=== PATIENT | male | born 1935 | race Caucasian/White ===

== ENCOUNTER 2017-10-13 06:18 | Outpatient (RCR) | payer MEDICARE | END 2017-10-14 | disposition home or self-care (01) | LOC: CR3 06:18 | DX: Z29.8 Encounter for other specified prophylactic measures (principal) ==

== ENCOUNTER 2017-11-12 06:12 | Outpatient (RCR) | payer MEDICARE | END 2017-11-13 | disposition home or self-care (01) | LOC: CR3 06:12 | PROVIDERS: ATTEND Internal Medicine | DX: Z29.8 Encounter for other specified prophylactic measures (principal) ==

== ENCOUNTER 2017-12-13 07:46 | Outpatient (RCR) | payer MEDICARE | END 2017-12-15 | disposition home or self-care (01) | LOC: CR3 07:46 | PROVIDERS: ATTEND Internal Medicine | DX: Z29.8 Encounter for other specified prophylactic measures (principal) ==

== ENCOUNTER 2018-01-12 10:07 | Outpatient (RCR) | payer MEDICARE | END 2018-01-13 | disposition home or self-care (01) | LOC: CR3 10:07 | PROVIDERS: ATTEND Internal Medicine | DX: Z29.8 Encounter for other specified prophylactic measures (principal) ==

== ENCOUNTER 2018-02-11 06:19 | Outpatient (RCR) | payer MEDICARE | END 2018-02-12 | disposition home or self-care (01) | LOC: CR3 06:19 | PROVIDERS: ATTEND Internal Medicine | DX: Z29.8 Encounter for other specified prophylactic measures (principal) ==

== ENCOUNTER 2018-03-16 06:21 | Outpatient (RCR) | payer MEDICARE | END 2018-03-17 | disposition home or self-care (01) | LOC: CR3 06:21 | PROVIDERS: ATTEND Internal Medicine | DX: Z29.8 Encounter for other specified prophylactic measures (principal) ==

== ENCOUNTER 2018-04-15 08:42 | Outpatient (RCR) | payer MEDICARE | END 2018-04-16 | disposition home or self-care (01) | LOC: CR3 08:42 | PROVIDERS: ATTEND Internal Medicine | DX: Z29.8 Encounter for other specified prophylactic measures (principal) ==

== ENCOUNTER → 2018-05-18 | Outpatient (RCR) | payer MEDICARE | END | disposition home or self-care (01) | LOC: CR3 04-18 06:00 | PROVIDERS: ATTEND Internal Medicine | DX: Z29.8 Encounter for other specified prophylactic measures (principal) ==

== ENCOUNTER → 2018-07-20 | Outpatient (RCR) | payer MEDICARE | END | disposition home or self-care (01) | LOC: CR3 06-20 06:00 | PROVIDERS: ATTEND Internal Medicine | DX: Z29.8 Encounter for other specified prophylactic measures (principal) ==

== ENCOUNTER 2018-08-19 07:15 | Outpatient (RCR) | payer MEDICARE | END 2018-08-21 | disposition home or self-care (01) | LOC: CR3 07:15 | PROVIDERS: ATTEND Internal Medicine | DX: Z29.8 Encounter for other specified prophylactic measures (principal) ==

== ENCOUNTER → 2018-09-21 | Outpatient (RCR) | payer MEDICARE | END | disposition home or self-care (01) | LOC: CR3 08-22 07:36 | PROVIDERS: ATTEND Internal Medicine | DX: Z29.8 Encounter for other specified prophylactic measures (principal) ==

== ENCOUNTER 2018-10-18 06:00 | Outpatient (RCR) | payer MEDICARE | END 2018-10-22 | disposition home or self-care (01) | LOC: CR3 06:00 | PROVIDERS: ATTEND Internal Medicine | DX: Z29.8 Encounter for other specified prophylactic measures (principal) ==

== ENCOUNTER 2018-12-07 08:08 | Outpatient (RCR) | payer MEDICARE, OTHER | END 2019-02-14 | disposition home or self-care (01) | LOC: CR 08:08 | PROVIDERS: ATTEND Internal Medicine Critical Care Medicine | DX: Z48.812 Encounter for surgical aftercare following surgery on the circulatory system (principal); Z95.2 Presence of prosthetic heart valve | CPT/HCPCS: 93798 ==

== ENCOUNTER → 2019-03-08 | Outpatient (RCR) | payer MEDICARE | END | disposition home or self-care (01) | LOC: CR3 02-06 06:00 | PROVIDERS: ATTEND Internal Medicine | DX: Z29.8 Encounter for other specified prophylactic measures (principal) ==

== ENCOUNTER 2019-03-11 13:02 | Emergency (ER) | payer MEDICARE, OTHER ==
[~2019-03-11] VITALS: Ht 167.7 cm; Wt 100.0 kg
--- NOTE | 2019-03-11 13:23 | ED Upper Extremity ---
General Chief Complaint: Upper Extremity Stated Complaint: L ELBOW PAIN / SWELLING Source: patient Exam Limitations: no limitations History of Present Illness Date Seen by Provider: Mar 11, 2019 Time Seen by Provider: 13:19 Initial Comments Patient fell on the tailgate of his truck yesterday now has swelling and pain to the posterior left elbow but full range of motion Onset: just prior to arrival Severity: moderate Pain/Injury Location: left elbow Method of Injury: fell Modifying Factors: Worse With Movement Allergies and Home Medications Allergies Coded Allergies: No Known Drug Allergies (Unverified , 03/11/19) Patient Home Medication List Home Medication List Reviewed: Yes Review of Systems Constitutional: see HPI EENTM: see HPI Respiratory: no symptoms reported Cardiovascular: no symptoms reported Genitourinary: no symptoms reported Musculoskeletal: see HPI Skin: no symptoms reported Psychiatric/Neurological: No Symptoms Reported Past Ceyopuz-Cqclqc-Efvnwt Hx Patient Social History Recent Foreign Travel: No Contact w/Someone Who Travel: No Physical Exam Vital Signs Vital Signs - First Documented 03/11/19 13:06 Temp 36.5 Pulse 83 Resp 18 B/P (MAP) 152/75 (100) Pulse Ox 99 O2 Delivery Room Air Capillary Refill : Height, Weight, BMI Height: '" Weight: lbs. oz. kg; BMI Method: General Appearance: WD/WN, no apparent distress HEENT: PERRL/EOMI Neck: non-tender, full range of motion Cardiovascular: regular rate, rhythm, systolic murmur Respiratory: no respiratory distress, no accessory muscle use Gastrointestinal: normal bowel sounds Shoulder: non-tender Elbow/Forearm: Left, swelling (swelling with a talked fluctuant bursa and the olecranon bursal region. Overlying skin is normal in appearance without erythema or evidence of infection) Neurologic/Psychiatric: alert, normal mood/affect, oriented x 3 Skin: normal color, warm/dry Procedures/Interventions Progress Numbed up the olecranon bursa with 1 mL of 2% lidocaine with epinephrine, an 18- gauge 1/2 inch needle was then inserted normal airway, only about 2 cc of blood was able to be aspirated, remainder was too thick to go down the lumen of the needle. Progress/Results/Core Measures Results/Orders Lab Results Laboratory Tests Test 03/11/19 13:24 Range/Units Prothrombin Time 33.4 H 12.2-14.7 SEC INR Comment 3.1 H 0.8-1.4 My Orders Orders - ANTIONETTE PHELPS APRN Protime With Inr (03/11/19 13:17) Elbow, Left, 3 Views (03/11/19 13:17) Lidocaine/Epi 2% 1:100,000 (Xylocaine/Ep (03/11/19 13:30) Vital Signs/I&O 03/11/19 13:06 Temp 36.5 Pulse 83 Resp 18 B/P (MAP) 152/75 (100) Pulse Ox 99 O2 Delivery Room Air Departure Communication (Admissions) He is on warfarin, we'll check a PT/INR before attempting bursal aspiration, due to the discomfort is causing him if the INR is not supratherapeutic will proceed with aspiration and pressure dressing. Impression Primary Impression: Traumatic bursitis Disposition: 01 HOME, SELF-CARE Condition: Stable Departure-Patient Inst. Decision time for Depature: 13:22 Referrals: NO,LOCAL PHYSICIAN (PCP/Family) Primary Care Physician Patient Instructions: Bursitis Add. Discharge Instructions: 1. Keep the compression dressing in place until this evening, you may take it off to shower then reapply the next 1-2 days. Return to ER for any concerns, follow-up with your doctor next week. All discharge instructions reviewed with patient and/or family. Voiced understanding. ANTIONETTE PHELPS APRN Mar 11, 2019 13:23
[2019-03-11] MEDS ORDERED: LIDOCAINE/EPI 2% 1:100,00 (XYLOCAINE) 20 ML VIAL INJ ONE (13:30)
--- NOTE | 2019-03-11 13:53 | Diagnostic Imaging Report ---
INDICATION: Elbow pain. Three views were obtained. FINDINGS: The alignment is normal. There are mild degenerative changes. There is no fracture or dislocation. IMPRESSION: Mild degenerative changes; however, no acute fracture or dislocation. Dictated by: Dictated on workstation # [id number]
[2019-03-11 13:56] LABS: INR 3.1 (0.8-1.4); PROTHROMBIN TIME PATIENT 33.4 SEC (12.2-14.7)
--- NOTE | 2019-03-11 14:20 | NUR ---
ANTOLIN HENAO AT BEDSIDE FOR BURSA ASPIRATION OF LT ELBOW. PT TOLERATED WELL
[2019-03-11 14:24] VITALS: BP 118/71
--- NOTE | 2019-03-11 14:24 | NUR ---
PT DISCHARGED TO HOME W/ JESÚS WRAP ET INSTR. PT VOICED UNDERSTANDING. NO QUESTIONS.
== END 2019-03-11 14:24 | disposition home or self-care (01) ==
LOC: EDUNIT# 13:02 → ER 13:03
DX: M70.32 Other bursitis of elbow, left elbow (principal); W19.XXXA Unspecified fall, initial encounter
CPT/HCPCS: 36415; 73080; 85610

== ENCOUNTER 2019-04-06 06:00 | Outpatient (RCR) | payer MEDICARE | END 2019-04-08 | disposition home or self-care (01) | LOC: CR3 06:00 | PROVIDERS: ATTEND Internal Medicine | DX: Z29.8 Encounter for other specified prophylactic measures (principal) ==

== ENCOUNTER 2019-05-04 06:00 | Outpatient (RCR) | payer MEDICARE | END 2019-05-10 | disposition home or self-care (01) | LOC: CR3 06:00 | PROVIDERS: ATTEND Internal Medicine | DX: Z29.8 Encounter for other specified prophylactic measures (principal) ==

== ENCOUNTER 2019-06-12 07:18 | Emergency (ER) | payer MEDICARE, OTHER ==
[~2019-06-12] VITALS: Ht 170.2 cm; Wt 105.0 kg
[2019-06-12] MEDS ORDERED: NS IV 500 ML 500 ML IV ONE (07:37)
--- NOTE | 2019-06-12 07:41 | ED Cardiac General ---
History of Present Illness General Chief Complaint: Cardiac/General Problems Stated Complaint: SOA Source: patient, caregiver Exam Limitations: no limitations History of Present Illness Date Seen by Provider: Jun 12, 2019 Time Seen by Provider: 07:13 Initial Comments Patient presents by wheelchair from cardiac rehabilitation with staff and chief complaint he was about 20 minutes into his workout he came pronouncedly short of breath and they put him on the monitor noting that his heart rate was 160, regular. They called their calendar control clerk blood bank office and were instructed to come to the ER for concern of A. fib with rapid ventricular response or other tachydysrhythmia. 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 He is known to Dr. Skinner and Dr. Burnette as well as Dr. Begum. He is not having any chest pain nausea sweats numbness or fever. No coughs or recent illness. He is having abdominal pain diarrhea or dysuria. He does have a history of coronary disease. He does not know any recent changes in medications. Allergies and Home Medications Allergies Coded Allergies: No Known Drug Allergies (Unverified , 03/11/19) Patient Home Medication List Home Medication List Reviewed: Yes Review of Systems Review of Systems Constitutional: No chills, No diaphoresis EENTM: No Blurred Vision, No Double Vision Respiratory: Denies Cough, Denies Shortness of Air Cardiovascular: See HPI; Denies Chest Pain, Denies Edema, Denies Irregular Heart Rate, Denies Lightheadedness; Palpitations; Denies Syncope Gastrointestinal: Denies Abdomen Distended, Denies Abdominal Pain Genitourinary: Denies Burning, Denies Discharge Musculoskeletal: No back pain, No joint pain Skin: No pruritus, No rash Psychiatric/Neurological: Denies Headache, Denies Numbness All Other Systems Reviewed Negative Unless Noted: Yes Past Dwkczun-Pbegqr-Dioklv Hx Patient Social History Alcohol Use: Denies Use Recreational Drug Use: No Smoking Status: Former Smoker Recent Foreign Travel: No Contact w/Someone Who Travel: No Recent Hopitalizations: No Immunizations Up To Date Tetanus Booster (TDap): Less than 5yrs Past Medical History Surgeries: Yes (MITRAL VALVE REPLACEMENT) CABG Respiratory: No Cardiac: Yes Neurological: No Genitourinary: No Gastrointestinal: No Musculoskeletal: No Endocrine: No HEENT: No Cancer: No Psychosocial: No Integumentary: No Blood Disorders: No Adverse Reaction/Blood Tranf: No Physical Exam Vital Signs Vital Signs - First Documented 06/12/19 07:20 Pulse 105 Resp 20 B/P (MAP) 146/97 (113) Pulse Ox 95 O2 Delivery Room Air Capillary Refill : Less Than 3 Seconds Height, Weight, BMI Height: '" Weight: lbs. oz. kg; 35.00 BMI Method: General Appearance: No Apparent Distress, WD/WN HEENT: PERRL/EOMI, TMs Normal, Normal ENT Inspection, Pharynx Normal; No Moist Mucous Membranes Neck: Full Range of Motion, Normal Inspection, Supple Respiratory: Chest Non Tender, Lungs Clear, Normal Breath Sounds, No Accessory Muscle Use, No Respiratory Distress Cardiovascular: Regular Rate, Rhythm, No Edema, No Gallop, No JVD, Normal Peripheral Pulses Gastrointestinal: Normal Bowel Sounds, Non Tender, Soft Extremity: Normal Capillary Refill, Normal Inspection, No Pedal Edema Neurologic/Psychiatric: Alert, Oriented x3 Skin: Normal Color, Warm/Dry Progress/Results/Core Measures Results/Orders Lab Results Laboratory Tests Test 06/12/19 07:22 06/12/19 07:23 Range/Units Prothrombin Time 32.3 H 12.2-14.7 SEC INR Comment 3.0 H 0.8-1.4 Activated Partial Thromboplast Time 51 H 24-35 SEC White Blood Count 9.2 4.3-11.0 10^3/uL Red Blood Count 4.99 4.35-5.85 10^6/uL Hemoglobin 15.1 13.3-17.7 G/DL Hematocrit 46 40-54 % Mean Corpuscular Volume 93 80-99 FL Mean Corpuscular Hemoglobin 30 25-34 PG Mean Corpuscular Hemoglobin Concent 33 32-36 G/DL Red Cell Distribution Width 13.8 10.0-14.5 % Platelet Count 209 130-400 10^3/uL Mean Platelet Volume 12.0 H 7.4-10.4 FL Neutrophils (%) (Auto) 63 42-75 % Lymphocytes (%) (Auto) 22 12-44 % Monocytes (%) (Auto) 11 0-12 % Eosinophils (%) (Auto) 3 0-10 % Basophils (%) (Auto) 1 0-10 % Neutrophils # (Auto) 5.8 1.8-7.8 X 10^3 Lymphocytes # (Auto) 2.0 1.0-4.0 X 10^3 Monocytes # (Auto) 1.0 0.0-1.0 X 10^3 Eosinophils # (Auto) 0.3 0.0-0.3 10^3/uL Basophils # (Auto) 0.1 0.0-0.1 10^3/uL Sodium Level 140 135-145 MMOL/L Potassium Level 4.5 3.6-5.0 MMOL/L Chloride Level 105 98-107 MMOL/L Carbon Dioxide Level 18 L 21-32 MMOL/L Anion Gap 17 H 5-14 MMOL/L Blood Urea Nitrogen 11 7-18 MG/DL Creatinine 1.09 0.60-1.30 MG/DL Estimat Glomerular Filtration Rate > 60 BUN/Creatinine Ratio 10 Glucose Level 149 H 70-105 MG/DL Calcium Level 9.5 8.5-10.1 MG/DL Corrected Calcium 9.2 8.5-10.1 MG/DL Total Bilirubin 0.6 0.1-1.0 MG/DL Aspartate Amino Transf (AST/SGOT) 22 5-34 U/L Alanine Aminotransferase (ALT/SGPT) 20 0-55 U/L Alkaline Phosphatase 72 40-136 U/L Troponin I < 0.028 <0.028 NG/ML B-Type Natriuretic Peptide 212.1 H <100.0 PG/ML Total Protein 7.6 6.4-8.2 GM/DL Albumin 4.4 3.2-4.5 GM/DL My Orders Orders - DANIS,MICHAEL J Chest 1 View, Ap/Pa Only (06/12/19 07:27) Ekg Tracing (06/12/19 07:27) Ed Iv/Invasive Line Start (06/12/19 07:27) Monitor-Rhythm Ecg Trace Only (06/12/19 07:27) Cbc With Automated Diff (06/12/19 07:27) Comprehensive Metabolic Panel (06/12/19 07:27) BNP (06/12/19 07:27) Ed Iv/Invasive Line Start (06/12/19 07:27) Ed Iv/Invasive Line Start (06/12/19 07:37) Ns Iv 500 Ml (Sodium Chloride 0.9%) (06/12/19 07:37) Protime With Inr (06/12/19 07:41) Partial Thromboplastin Time (06/12/19 07:41) Troponin I (06/12/19 07:23) Medications Given in ED Current Medications Medications Dose Ordered Sig/Le Route Start Time Stop Time Status Last Admin Dose Admin Sodium Chloride 500 ml @ 0 mls/hr Q0M ONCE IV 06/12/19 07:37 06/12/19 07:39 DC 06/12/19 07:44 500 MLS/HR Vital Signs/I&O 06/12/19 07:20 Pulse 105 Resp 20 B/P (MAP) 146/97 (113) Pulse Ox 95 O2 Delivery Room Air Progress Progress Note : Time: 07:44 Progress Note The strip from via the cardiac rehabilitation team demonstrates 150 heart rate regular sinus rhythm. We don't have an echocardiogram previously EKG on file. He denies ever having a monitor study looking for A. fib. Strip provided does not demonstrate atrial fibrillation. Suspect this could just be sinus tachycardia in response to his exercise. He does appear to be dry aspirin given 500 cc of fluid but his heart rate has steadily declined since arriving. His pulse was regular on arrival. He says he feels just fine now no longer short of breath nor demonstrating any objective criteria of dyspnea. Lungs sound clear. On exam he does appear to be dry he does not know what medication he takes nor do we have a list. We'll keep him on the monitor check some basic labs looking for anemia as, fluid overload etc. chest x-ray. He does not have any subjective findings of respiratory tract infection. Initial ECG Impression Date: Jun 12, 2019 Initial ECG Impression Time: 07:19 Initial ECG Rate: 94 Initial ECG Rhythm: Normal Sinus Initial ECG Intervals: Normal Initial ECG Impression: Normal Initial ECG Comparisson: No Previous ECG Available Comment Normal sinus rhythm without ST elevation or depression. Diagnostic Imaging Diagonstic Imaging: Xray Plain Films/CT/US/NM/MRI: chest (1v) Comments [facility] [place], [place] NAME: SHELIADELMY MED REC#: [id number] PT STATUS: REG ER : 1935 PHYSICIAN: MICHAEL MOSCOSO MD ADMIT DATE: 06/12/19/ER Draft Date of Exam:06/12/19 CHEST 1 VIEW, AP/PA ONLY INDICATION: Shortness of air, tachycardia. TECHNIQUE: Single view chest 7:59 AM. 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 Cardiac valve. Cardiac enlargement. Vasculature is borderline without evidence of overt failure. The lungs are clear with no consolidating infiltrate. There is no significant effusion or pneumothorax. IMPRESSION: 1. Post sternotomy changes. Borderline cardiac enlargement without evidence of overt failure. Dictated on workstation # [id number] Dict: 06/12/19 0810 Trans: 06/12/19 0829 [facility] [id number] Interpreted by: LETTY LUTHER DO Electronically signed by: Reviewed: Reviewed by Me Departure Impression Primary Impression: Exertional dyspnea Disposition: 01 HOME, SELF-CARE Condition: Improved Departure-Patient Inst. Decision time for Depature: 08:55 Referrals: NO,LOCAL PHYSICIAN (PCP/Family) Primary Care Physician Patient Instructions: Shortness of Breath (Dyspnea) (DC) Add. Discharge Instructions: Follow-up with your calendar control clerk blood bank sometime this week. Alternatively follow-up with her primary care doctor. Return to the ER to begin to have shortness of breath or chest pain again. Drink plenty of fluids. All discharge instructions reviewed with patient and/or family. Voiced u nderstanding. MICHAEL MOSCOSO Jun 12, 2019 07:41
[2019-06-12 07:43] LABS: BASOPHILS # (AUTO) 0.1 10^3/uL (0.0-0.1); BASOPHILS % (AUTO) 1 % (0-10); EOSINOPHILS # (AUTO) 0.3 10^3/uL (0.0-0.3); EOSINOPHILS % (AUTO) 3 % (0-10); HEMATOCRIT 46 % (40-54); HEMOGLOBIN 15.1 G/DL (13.3-17.7); LYMPHOCYTES % (AUTO) 22 % (12-44); MEAN CORPUSCULAR HEMOGLOBIN 30 PG (25-34); MEAN CORPUSCULAR HGB CONC 33 G/DL (32-36); MEAN CORPUSCULAR VOLUME 93 FL (80-99); MONOCYTES % (AUTO) 11 % (0-12); NEUTROPHILS # (AUTO) 5.8 X 10^3 (1.8-7.8); NEUTROPHILS % (AUTO) 63 % (42-75); PLATELET COUNT 209 10^3/uL (130-400); RED CELL DISTRIBUTION WIDTH 13.8 % (10.0-14.5); WHITE BLOOD COUNT 9.2 10^3/uL (4.3-11.0)
[2019-06-12 07:55] LABS: ALANINE AMINOTRANSFERASE 20 U/L (0-55); ALBUMIN 4.4 GM/DL (3.2-4.5); ALKALINE PHOSPHATASE 72 U/L (40-136); BILIRUBIN,TOTAL 0.6 MG/DL (0.1-1.0); BUN/CREATININE RATIO 10; CALCIUM 9.5 MG/DL (8.5-10.1); CARBON DIOXIDE 18 MMOL/L (21-32); CHLORIDE 105 MMOL/L (98-107); CREATININE SERUM 1.09 MG/DL (0.60-1.30); GFR ESTIMATED > 60; GLUCOSE 149 MG/DL (70-105); POTASSIUM 4.5 MMOL/L (3.6-5.0); SODIUM 140 MMOL/L (135-145); TOTAL PROTEIN 7.6 GM/DL (6.4-8.2)
[2019-06-12 08:01] LABS: PROTHROMBIN TIME PATIENT 32.3 SEC (12.2-14.7)
--- NOTE | 2019-06-12 08:31 | Diagnostic Imaging Report ---
INDICATION: Shortness of air, tachycardia. TECHNIQUE: Single view chest 7:59 AM. 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 Cardiac valve. Cardiac enlargement. Vasculature is borderline without evidence of overt failure. The lungs are clear with no consolidating infiltrate. There is no significant effusion or pneumothorax. IMPRESSION: 1. Post sternotomy changes. Borderline cardiac enlargement without evidence of overt failure. Dictated by: Dictated on workstation # [id number]
[2019-06-12 09:00] VITALS: BP 129/83
== END 2019-06-12 09:02 | disposition home or self-care (01) ==
LOC: EDUNIT# 07:18 → ER 07:19
DX: R06.09 Other forms of dyspnea (principal); Z95.4 Presence of other heart-valve replacement; Z79.01 Long term (current) use of anticoagulants; Z87.891 Personal history of nicotine dependence; Z95.1 Presence of aortocoronary bypass graft
CPT/HCPCS: 36415; 71045; 80053; 83880; 84484; 85025; 85610; 85730; 93005; 93041; 96360

== ENCOUNTER 2019-06-12 07:30 | Outpatient (RCR) | payer MEDICARE | END 2019-06-15 | disposition home or self-care (01) | LOC: CR3 07:30 | PROVIDERS: ATTEND Internal Medicine | DX: Z00.00 Encounter for general adult medical examination without abnormal findings (principal); Z29.8 Encounter for other specified prophylactic measures ==

== ENCOUNTER → 2019-06-19 | Outpatient (CLI) | payer MEDICARE, OTHER ==
--- NOTE | 2019-06-19 11:38 | Diagnostic Imaging Report ---
PROCEDURE: CT head and maxillofacial without contrast. TECHNIQUE: Multiple contiguous axial images were obtained through the head and facial bones without the use of intravenous contrast. Auto Exposure Controls were utilized during the CT exam to meet ALARA standards for radiation dose reduction. INDICATION: Fall last injuring to the nose and right side of the nose with laceration and bruising under the right eye. No prior studies are available for comparison. CT HEAD: Ventricles and sulci are prominent consistent with the patient's age. No sulcal effacement or midline shift is detected. No acute intra-axial or extra-axial hemorrhage is detected. Cisterns are patent. IMPRESSION: No acute intracranial process is detected. CT maxillofacial: The mandible appears to be intact. The zygomatic arches are intact. The maxillary sinus murcia as well as orbital murcia appear to be intact. No displaced nasal bone fracture is seen. Both globes appear to be intact. There is some mild soft tissue swelling over the nose. IMPRESSION: Nasal soft tissue swelling. No facial bone fracture is detected. Dictated by: Dictated on workstation # [id number]
== END ==
LOC: RAD 11:17
PROVIDERS: ATTEND Nurse Practitioner
DX: S01.21XA Laceration without foreign body of nose, initial encounter (principal); W19.XXXA Unspecified fall, initial encounter; Y92.009 Unspecified place in unspecified non-institutional (private) residence as the place of occurrence of the external cause
CPT/HCPCS: 70450; 70486

== ENCOUNTER 2019-07-13 06:00 | Outpatient (RCR) | payer MEDICARE | END 2019-07-16 | disposition home or self-care (01) | LOC: CR3 06:00 | PROVIDERS: ATTEND Internal Medicine | DX: Z00.00 Encounter for general adult medical examination without abnormal findings (principal); Z29.8 Encounter for other specified prophylactic measures ==

== ENCOUNTER → 2019-08-16 | Outpatient (RCR) | payer MEDICARE | END | disposition home or self-care (01) | LOC: CR3 07-17 07:00 | PROVIDERS: ATTEND Internal Medicine | DX: Z00.00 Encounter for general adult medical examination without abnormal findings (principal); Z29.8 Encounter for other specified prophylactic measures ==

== ENCOUNTER 2019-08-21 07:32 | Outpatient (RCR) | payer MEDICARE | END 2019-09-16 | disposition home or self-care (01) | LOC: CR3 07:32 | PROVIDERS: ATTEND Internal Medicine | DX: Z00.00 Encounter for general adult medical examination without abnormal findings (principal); Z29.8 Encounter for other specified prophylactic measures ==

== ENCOUNTER → 2019-09-15 | Outpatient (CLI) | payer MEDICARE, OTHER | LOC: CARD 08:42 | PROVIDERS: ATTEND Internal Medicine | DX: I50.9 Heart failure, unspecified (principal); I25.10 Atherosclerotic heart disease of native coronary artery without angina pectoris; I07.1 Rheumatic tricuspid insufficiency | CPT/HCPCS: 93306 ==

== ENCOUNTER → 2020-01-09 | Outpatient (CLI) | payer MEDICARE, OTHER ==
--- NOTE | 2020-01-09 13:53 | Diagnostic Imaging Report ---
INDICATION: Shortness of breath. TECHNIQUE: PA and lateral chest obtained at 01:19 p.m. and compared to 06/12/2019. FINDINGS: There is post-sternotomy change. There is a prosthetic aortic valve. There is no focal infiltrate or pneumothorax or pleural fluid. There is mild hyperinflation. IMPRESSION: Mild hyperinflation. Postop changes status post aortic valve replacement. No focal infiltrate or pneumothorax or pleural fluid. Dictated by: Dictated on workstation # [id number]
== END ==
LOC: RAD 13:01
PROVIDERS: ATTEND Internal Medicine
DX: R06.02 Shortness of breath (principal); R05 Cough; Z95.4 Presence of other heart-valve replacement
CPT/HCPCS: 71046

== ENCOUNTER 2020-05-09 18:10 | Emergency (ER) | payer MEDICARE, OTHER ==
[~2020-05-09] VITALS: Ht 172.7 cm; Wt 102.2 kg
[2020-05-09] MEDS ORDERED: NS IV 500 ML 500 ML IV SCH ×2 (18:45→19:15)
[2020-05-09 18:47] LABS: BASOPHILS % (AUTO) 0 % (0-10); EOSINOPHILS # (AUTO) 0.2 10^3/uL (0.0-0.3); EOSINOPHILS % (AUTO) 1 % (0-10); HEMATOCRIT 42 % (40-54); LYMPHOCYTES # (AUTO) 1.5 10^3/uL (1.0-4.0); LYMPHOCYTES % (AUTO) 10 % (12-44); MEAN CORPUSCULAR HEMOGLOBIN 31 pg (25-34); MEAN CORPUSCULAR HGB CONC 33 g/dL (32-36); MEAN CORPUSCULAR VOLUME 92 fL (80-99); MEAN PLATELET VOLUME 11.2 fL (9.0-12.2); MONOCYTES # (AUTO) 1.7 10^3/uL (0.0-1.0); MONOCYTES % (AUTO) 11 % (0-12); NEUTROPHILS # (AUTO) 11.5 10^3/uL (1.8-7.8); NEUTROPHILS % (AUTO) 77 % (42-75); PLATELET COUNT 278 10^3/uL (130-400)
--- NOTE | 2020-05-09 18:56 | NUR ---
REPORT TO ANNE
--- NOTE | 2020-05-09 18:56 | ED GU-Female ---
General Chief Complaint: - Urinary Stated Complaint: TREATED FOR UTI/LOWER BACK PAIN/CONSTIPATION Nursing Triage Note: AMB TO ED WAS BROUGHT BY GRANDDAUGHTER WHO REPORTS THAT HAS UTI HAS BEEN ON ABX FINISHED LAST WEEK. NO BM FOR 6-7 DAYS. HIS OLANZEPIVE WAS STOPPED 2 WEEKS AGO. HAS BEEN HAVING SUNDOWNERS. PATIENT ALERT ON ADMIT TO ROOM AND ANSWERS QUESTIONS. Nursing Sepsis Screen: No Definite Risk Source: patient Exam Limitations: no limitations History of Present Illness Date Seen by Provider: May 09, 2020 Time Seen by Provider: 18:45 Initial Comments To ER with reports of no bowel movement in 6 to 7 days. Dysuria. Recently finished antibiotics about a week ago for urinary tract infection. No fevers or chills. No abdominal pain. No chest pain. 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 Timing/Duration: week Severity/Quality: moderate Radiation: none Prior Genitourinary Problems: none Associated Symptoms: dysuria Allergies and Home Medications Allergies Coded Allergies: No Known Drug Allergies (Unverified , 03/11/19) Home Medications Cefdinir 300 Mg Capsule, 300 MG PO BID Prescribed by: ANTIONETTE PHELPS on 05/09/202037 Enoxaparin Sodium 100 Mg/1 Ml Syringe, 100 MG SQ BID Prescribed by: ANTIONETTE PHELPS on 05/09/202037 Polyethylene Glycol 3350 17 Gm Powd.pack, 17 GM PO BID Prescribed by: ANTIONETTE PHELPS on 05/09/202038 Temazepam 7.5 Mg Capsule, 7.5 MG PO HS Prescribed by: ANTIONETTE PHELPS on 05/09/202038 Patient Home Medication List Home Medication List Reviewed: Yes Review of Systems Review of Systems Constitutional: see HPI; No chills, No fever EENTM: see HPI Respiratory: no symptoms reported Cardiovascular: no symptoms reported Genitourinary: see HPI, dysuria Musculoskeletal: see HPI, back pain Skin: no symptoms reported Psychiatric/Neurological: No Symptoms Reported Endocrine: No Symptoms Reported Past Nwncegp-Aairjk-Aidakb Hx Patient Social History Alcohol Use: Denies Use Recreational Drug Use: No Smoking Status: Never a Smoker Recent Foreign Travel: No Contact w/Someone Who Travel: No Recent Infectious Disease Expo: No Recent Hopitalizations: No Immunizations Up To Date Tetanus Booster (TDap): Less than 5yrs Past Medical History Surgeries: Yes (MITRAL VALVE REPLACEMENT) CABG Respiratory: No Cardiac: Yes Neurological: No Genitourinary: No Gastrointestinal: No Musculoskeletal: No Endocrine: No HEENT: No Cancer: No Psychosocial: No Integumentary: No Blood Disorders: No Adverse Reaction/Blood Tranf: No Physical Exam Vital Signs Vital Signs - First Documented 05/09/20 18:31 Temp 36.6 Pulse 90 Resp 18 B/P (MAP) 149/88 (108) O2 Delivery Room Air Capillary Refill : Less Than 3 Seconds Height, Weight, BMI Height: '" Weight: lbs. oz. kg; 34.00 BMI Method: General Appearance: WD/WN, no apparent distress, other (Alert, very pleasant) Neck: non-tender, full range of motion Cardiovascular: regular rate, rhythm, no murmur Respiratory: no respiratory distress, no accessory muscle use Gastrointestinal: normal bowel sounds, non tender Back: normal inspection Extremities: normal range of motion, non-tender Neurologic/Psychiatric: alert, normal mood/affect, oriented x 3 Skin: normal color, warm/dry Progress/Results/Core Measures Suspected Sepsis Recent Fever Within 48 Hours: No Infection Criteria Present: None New/Unexplained Altered Menta: No Sepsis Screen: No Definite Risk SIRS Temperature: Pulse: 90 Respiratory Rate: 18 Laboratory Tests 05/09/20 18:40: White Blood Count 15.0H Blood Pressure 149 /88 Mean: 108 Laboratory Tests 05/09/20 18:40: Creatinine 1.64H, INR Comment 2.5H, Platelet Count 278, Total Bilirubin 1.9H Results/Orders Lab Results Laboratory Tests Test 05/09/20 18:40 05/09/20 18:58 Range/Units White Blood Count 15.0 H 4.3-11.0 10^3/uL Red Blood Count 4.59 4.30-5.52 10^6/uL Hemoglobin 14.0 13.3-17.7 g/dL Hematocrit 42 40-54 % Mean Corpuscular Volume 92 80-99 fL Mean Corpuscular Hemoglobin 31 25-34 pg Mean Corpuscular Hemoglobin Concent 33 32-36 g/dL Red Cell Distribution Width 13.0 10.0-14.5 % Platelet Count 278 130-400 10^3/uL Mean Platelet Volume 11.2 9.0-12.2 fL Immature Granulocyte % (Auto) 1 % Neutrophils (%) (Auto) 77 H 42-75 % Lymphocytes (%) (Auto) 10 L 12-44 % Monocytes (%) (Auto) 11 0-12 % Eosinophils (%) (Auto) 1 0-10 % Basophils (%) (Auto) 0 0-10 % Neutrophils # (Auto) 11.5 H 1.8-7.8 10^3/uL Lymphocytes # (Auto) 1.5 1.0-4.0 10^3/uL Monocytes # (Auto) 1.7 H 0.0-1.0 10^3/uL Eosinophils # (Auto) 0.2 0.0-0.3 10^3/uL Basophils # (Auto) 0.0 0.0-0.1 10^3/uL Immature Granulocyte # (Auto) 0.1 0.0-0.1 10^3/uL Neutrophils % (Manual) 77 % Lymphocytes % (Manual) 10 % Monocytes % (Manual) 10 % Eosinophils % (Manual) 3 % Blood Morphology Comment NORMAL Prothrombin Time 27.0 H 12.2-14.7 SEC INR Comment 2.5 H 0.8-1.4 Sodium Level 136 135-145 MMOL/L Potassium Level 3.8 3.6-5.0 MMOL/L Chloride Level 100 98-107 MMOL/L Carbon Dioxide Level 22 21-32 MMOL/L Anion Gap 14 5-14 MMOL/L Blood Urea Nitrogen 29 H 7-18 MG/DL Creatinine 1.64 H 0.60-1.30 MG/DL Estimat Glomerular Filtration Rate 40 BUN/Creatinine Ratio 18 Glucose Level 124 H 70-105 MG/DL Calcium Level 9.3 8.5-10.1 MG/DL Corrected Calcium 9.5 8.5-10.1 MG/DL Total Bilirubin 1.9 H 0.1-1.0 MG/DL Aspartate Amino Transf (AST/SGOT) 58 H 5-34 U/L Alanine Aminotransferase (ALT/SGPT) 72 H 0-55 U/L Alkaline Phosphatase 113 40-136 U/L B-Type Natriuretic Peptide 350.8 H <100.0 PG/ML Total Protein 7.5 6.4-8.2 GM/DL Albumin 3.7 3.2-4.5 GM/DL Procalcitonin 0.17 H <0.10 NG/ML Urine Color ORANGE Urine Clarity CLEAR Urine pH 5.5 5-9 Urine Specific [place] 1.025 H 1.016-1.022 Urine Protein NEGATIVE NEGATIVE Urine Glucose (UA) NEGATIVE NEGATIVE Urine Ketones NEGATIVE NEGATIVE Urine Nitrite NEGATIVE NEGATIVE Urine Bilirubin 1+ H NEGATIVE Urine Urobilinogen 1.0 < = 1.0 MG/DL Urine Leukocyte Esterase NEGATIVE NEGATIVE Urine RBC (Auto) 2+ H NEGATIVE Urine RBC 2-5 H /HPF Urine WBC 0-2 /HPF Urine Squamous Epithelial Cells 0-2 /HPF Urine Crystals NONE /LPF Urine Bacteria TRACE /HPF Urine Casts NONE /LPF Urine Mucus NEGATIVE /LPF Urine Culture Indicated NO My Orders Orders - ANTIONETTE PHELPS APRN Ua Culture If Indicated (05/09/20 18:24) Cbc With Automated Diff (05/09/20 18:24) Comprehensive Metabolic Panel (05/09/20 18:24) Ed Iv/Invasive Line Start (05/09/20 18:24) Ct Abd/Pelvis Wo(Kidney Stone) (05/09/20 18:24) Ekg Tracing (05/09/20 18:45) Chest 1 View, Ap/Pa Only (05/09/20 18:45) BNP (05/09/20 18:45) Ns Iv 500 Ml (Sodium Chloride 0.9%) (05/09/20 18:45) Manual Differential (05/09/20 18:40) Ns Iv 500 Ml (Sodium Chloride 0.9%) (05/09/20 19:15) Ns Iv 1000 Ml (Sodium Chloride 0.9%) (05/09/20 19:46) Procalcitonin (Pct) (05/09/20 20:03) Protime With Inr (05/09/20 20:14) Abdomen/Kub 1view (05/09/20 20:16) Ceftriaxone For Iv Use (Rocephin For I (05/09/20 20:30) Temazepam Capsule (Restoril Capsule) (05/09/20 20:30) Rx-Hydrocodone/Apap 5-325 Mg (Rx-Vicodin (05/09/20 20:30) Medications Given in ED Current Medications Medications Dose Ordered Sig/Le Route Start Time Stop Time Status Last Admin Dose Admin Ceftriaxone Sodium 1000 mg/ Sterile Water 10 ml @ 200 mls/hr ONCE ONCE IV 05/09/20 20:30 05/09/20 20:32 DC 05/09/20 20:24 200 MLS/HR Vital Signs/I&O 05/09/20 18:31 Temp 36.6 Pulse 90 Resp 18 B/P (MAP) 149/88 (108) O2 Delivery Room Air Capillary Refill : Less Than 3 Seconds Blood Pressure Mean: 108 Diagnostic Imaging Diagonstic Imaging: Xray Plain Films/CT/US/NM/MRI: chest Comments NAME: DELMY BASS MED REC#: [id number] PT STATUS: REG ER : 1935 PHYSICIAN: ANTIONETTE PHELPS APRN ADMIT DATE: 05/09/20/ER Signed Date of Exam:05/09/20 CHEST 1 VIEW, AP/PA ONLY EXAMINATION: Chest radiograph, portable AP view. DATE: 05/09/2020 7:26 PM. INDICATION: 85-year-old male, weakness. COMPARISON: January 09, 2020. FINDINGS: There are median sternotomy wires. There is valvular hardware. Heart size and mediastinal contours are grossly unchanged. There is no identified pneumothorax. There is interval nonspecific opacification in the left lung base. There are streaky opacities in the right lung base. IMPRESSION: 1. Interval opacification of the left lung base which may relate to infiltrate, atelectasis, pleural effusion and/or soft tissue overlap. 2. New streaky opacities in the right lung base consistent with atelectasis and/or infiltrate. Dictated by: Dictated on workstation # [id number] Dict: 05/09/201927 Trans: 05/09/201999 [facility] [id number] Interpreted by: STEFANIE ELENA MD Electronically signed by: STEFANIE ELENA MD 05/09/201999 NAME: DELMY BASS MED REC#: [id number] PT STATUS: REG ER : 1935 PHYSICIAN: ANTIONETTE PHELPS APRN ADMIT DATE: 05/09/20/ER Signed Date of Exam:05/09/20 CT ABD/PELVIS WO(KIDNEY STONE) PROCEDURE: CT urinary tract, rule out kidney stone. TECHNIQUE: Multiple contiguous axial images were obtained through the abdomen and pelvis without the use of intravenous contrast. Auto Exposure Controls were utilized during the CT exam to meet ALARA standards for radiation dose reduction. DATE: May 09, 2020. COMPARISON: None. INDICATION: 85-year-old male, no bowel movement for 6 to 7 days. Abdominal pain. FINDINGS: There are limitations for evaluation of the abdominal organs, neoplastic processes, abscess and limited evaluation of the vasculature relating to the lack of intravenous contrast. There are mild linear opacities in the right lower lobe and left lower lobe which likely relate to scarring and/or atelectasis. There is a benign calcified 3 mm granuloma in the lingula on axial image 7. There is valvular hardware. The heart is not enlarged. There is no pericardial effusion. There are atherosclerotic calcifications. The liver is unremarkable in size and contour. The gallbladder is unremarkable. There is no biliary ductal dilation. The main pancreatic duct is not abnormally dilated. Limited noncontrast evaluation of the pancreatic parenchyma is unremarkable. The spleen is not enlarged. There are splenic calcifications compatible with sequela of prior granulomatous disease. There is a stone in the left proximal ureter on axial image 70 which measures 8 mm in size. There is mild left hydronephrosis. There is inflammatory stranding adjacent to the left renal pelvis. There is a nonobstructing 5 mm left renal stone on axial image 46. There is a nonobstructing right renal stone on axial image 52 which measures 11 mm in size. The right urinary collecting system is not distended. There is no identified right ureteral stone. There is also inflammatory stranding adjacent to the more distal aspect of the left ureter. The urinary bladder is grossly unremarkable in appearance. The intestinal tract is not distended. The appendix is unremarkable. There is no free intraperitoneal air. There is no drainable fluid collection. There is no free pelvic fluid. There is an inferior vena cava filter. There is no identified abnormally enlarged lymph node in the abdomen or pelvis which meets CT size criteria for adenopathy. There are collateral veins present within the anterior abdominal wall subcutaneous tissues. There are degenerative changes of the spine. There is no identified acute bony abnormality. IMPRESSION: CT abdomen and pelvis: 1. 8 mm stone in the left proximal ureter with associated mild left hydronephrosis. There is inflammatory stranding adjacent to the left renal pelvis as well as the left ureter distal to the location of the stone. Evaluation for superimposed urinary tract infection is nondiagnostic on noncontrast CT. Recommend correlation clinically and with urinalysis. 2. Additional right and left renal stones. No right hydronephrosis. Dictated by: Dictated on workstation # [id number] Dict: 05/09/201945 Trans: 05/09/201999 [facility] [id number] Interpreted by: STEFANIE ELENA MD Electronically signed by: STEFANIE ELENA MD 05/09/201999 Departure Communication (Admissions) 2030-spoke with Dr. Boyd, will give a dose of Rocephin here then home on antibiotics. He will see the patient Wednesday at 1 PM and plan for lithotripsy on Wednesday.. He will stop the warfarin on Wednesday. Patient takes warfarin for history of clotting disorder according to family and a mitral valve replacement. Because of this increased stroke risk we should bridge her with Lovenox. I spoke with the daughter she is familiar and has given injections before. For the insomnia I will give him a short prescription of Restoril. For the cons tipation I will give him MiraLAX. For the ureteral stone I will give him Omnicef and hydrocodone. 2099-spoke with Dr. Gupta about whether or not to bridge with Lovenox. He typically stop the anticoagulant in the form of warfarin 3 days prior to a procedure that way they do not need Lovenox. Impression Primary Impression: Left ureteral stone Additional Impressions: Dehydration Constipation Insomnia Disposition: HOME, SELF-CARE Condition: Stable Departure-Patient Inst. Decision time for Depature: 20:32 Referrals: SERA BOYD MD, JOHN D MD (PCP/Family) Primary Care Physician Patient Instructions: Kidney Stones (DC) Add. Discharge Instructions: 1. Take the antibiotics to prevent infection around the stone. Use the hydrocodone/acetaminophen as needed for pain control. This can be sedating so do not take it with the sleeping medicine at bedtime. It can also be constipating so it is important to use the MiraLAX for help with the constipation. Take the Restoril for troubles sleeping at bedtime. Call Dr. Amos Wednesday to see if he would like to continue this prescription or change to something different. Stop the warfarin on Wednesday. See Dr. Boyd Wednesday at 1 PM. The plan is to break up the stone with sound waves on Wednesday. All discharge instructions reviewed with patient and/or family. Voiced understanding. Scripts Enoxaparin Sodium (Lovenox) 100 Mg/1 Ml Syringe 100 MG SQ BID, #7 SYRINGE Discontinue. Prov: ANTIONETTE PHELPS APRN 05/09/20 Polyethylene Glycol 3350 (Miralax) 17 Gm Powd.pack 17 GM PO BID, #14 EACH Prov: ANTIONETTE PHELPS APRN 05/09/20 Temazepam (Restoril) 7.5 Mg Capsule 7.5 MG PO HS, #10 CAP Prov: ANTIONETTE PHELPS APRN 05/09/20 Cefdinir (Cefdinir) 300 Mg Capsule 300 MG PO BID, #14 CAP Prov: ANTIONETTE PHELPS APRN 05/09/20 Copy Copies To 1: SERA BOYD MD; MEGHANA AMOS MD, PETER J APRN May 09, 2020 18:56
[2020-05-09 19:05] LABS: BILIRUBIN,URINE 1+ (NEGATIVE); CLARITY,URINE CLEAR; COLOR,URINE ORANGE; GLUCOSE, URINE (UA) NEGATIVE (NEGATIVE); KETONES,URINE NEGATIVE (NEGATIVE); LEUKOCYTE ESTERASE ,URINE NEGATIVE (NEGATIVE); NITRITE,URINE NEGATIVE (NEGATIVE); PH,URINE 5.5 (5-9); PROTEIN,URINE NEGATIVE (NEGATIVE)
[2020-05-09 19:06] LABS: ALBUMIN 3.7 GM/DL (3.2-4.5); BILIRUBIN,TOTAL 1.9 MG/DL (0.1-1.0); CALCIUM 9.3 MG/DL (8.5-10.1); CREATININE SERUM 1.64 MG/DL (0.60-1.30); POTASSIUM 3.8 MMOL/L (3.6-5.0); TOTAL PROTEIN 7.5 GM/DL (6.4-8.2)
[2020-05-09 19:27] LABS: EOSINOPHILS % (MANUAL) 3 %; LYMPHOCYTES % (MANUAL) 10 %; MONOCYTES % (MANUAL) 10 %; NEUTROPHILS % (MANUAL) 77 %; RBC MORPH NORMAL
--- NOTE | 2020-05-09 19:31 | Diagnostic Imaging Report ---
EXAMINATION: Chest radiograph, portable AP view. DATE: 05/09/2020 7:26 PM. INDICATION: 85-year-old male, weakness. COMPARISON: January 09, 2020. FINDINGS: There are median sternotomy wires. There is valvular hardware. Heart size and mediastinal contours are grossly unchanged. There is no identified pneumothorax. There is interval nonspecific opacification in the left lung base. There are streaky opacities in the right lung base. IMPRESSION: 1. Interval opacification of the left lung base which may relate to infiltrate, atelectasis, pleural effusion and/or soft tissue overlap. 2. New streaky opacities in the right lung base consistent with atelectasis and/or infiltrate. Dictated by: Dictated on workstation # [id number]
[2020-05-09 19:41] LABS: BACTERIA,URINE TRACE /HPF; SQUAMOUS EPITHELIAL CELL,UR 0-2 /HPF; WBC,URINE 0-2 /HPF
[2020-05-09] MEDS ORDERED: NS IV 1000 ML 1,000 ML ONE (19:46)
--- NOTE | 2020-05-09 19:57 | Diagnostic Imaging Report ---
PROCEDURE: CT urinary tract, rule out kidney stone. TECHNIQUE: Multiple contiguous axial images were obtained through the abdomen and pelvis without the use of intravenous contrast. Auto Exposure Controls were utilized during the CT exam to meet ALARA standards for radiation dose reduction. DATE: May 09, 2020. COMPARISON: None. INDICATION: 85-year-old male, no bowel movement for 6 to 7 days. Abdominal pain. FINDINGS: There are limitations for evaluation of the abdominal organs, neoplastic processes, abscess and limited evaluation of the vasculature relating to the lack of intravenous contrast. There are mild linear opacities in the right lower lobe and left lower lobe which likely relate to scarring and/or atelectasis. There is a benign calcified 3 mm granuloma in the lingula on axial image 7. There is valvular hardware. The heart is not enlarged. There is no pericardial effusion. There are atherosclerotic calcifications. The liver is unremarkable in size and contour. The gallbladder is unremarkable. There is no biliary ductal dilation. The main pancreatic duct is not abnormally dilated. Limited noncontrast evaluation of the pancreatic parenchyma is unremarkable. The spleen is not enlarged. There are splenic calcifications compatible with sequela of prior granulomatous disease. There is a stone in the left proximal ureter on axial image 70 which measures 8 mm in size. There is mild left hydronephrosis. There is inflammatory stranding adjacent to the left renal pelvis. There is a nonobstructing 5 mm left renal stone on axial image 46. There is a nonobstructing right renal stone on axial image 52 which measures 11 mm in size. The right urinary collecting system is not distended. There is no identified right ureteral stone. There is also inflammatory stranding adjacent to the more distal aspect of the left ureter. The urinary bladder is grossly unremarkable in appearance. The intestinal tract is not distended. The appendix is unremarkable. There is no free intraperitoneal air. There is no drainable fluid collection. There is no free pelvic fluid. There is an inferior vena cava filter. There is no identified abnormally enlarged lymph node in the abdomen or pelvis which meets CT size criteria for adenopathy. There are collateral veins present within the anterior abdominal wall subcutaneous tissues. There are degenerative changes of the spine. There is no identified acute bony abnormality. IMPRESSION: CT abdomen and pelvis: 1. 8 mm stone in the left proximal ureter with associated mild left hydronephrosis. There is inflammatory stranding adjacent to the left renal pelvis as well as the left ureter distal to the location of the stone. Evaluation for superimposed urinary tract infection is nondiagnostic on noncontrast CT. Recommend correlation clinically and with urinalysis. 2. Additional right and left renal stones. No right hydronephrosis. Dictated by: Dictated on workstation # [id number]
[2020-05-09] MEDS ORDERED: RX-HYDROCODONE/APAP 5/325 MG #4 TAB PK PO PRN (20:30)
[2020-05-09] MEDS ORDERED: TEMAZEPAM 7.5 MG CAP (RESTORIL) PO ONE (20:30)
[2020-05-09] MEDS ORDERED: cefTRIAXone FOR IV USE 1,000 MG in WATER (STERILE) FOR INJECTION 10 ML IV ONE (20:30)
[2020-05-09 20:31] LABS: INR 2.5 (0.8-1.4)
[2020-05-09] MEDS ORDERED: CEFD300C3 PO (20:38)
[2020-05-09] MEDS ORDERED: ENOX100D9 SQ ×2 (20:38→21:03)
[2020-05-09] MEDS ORDERED: POLY17PO6 PO (20:39)
[2020-05-09] MEDS ORDERED: TEMA7.5C2 PO (20:39)
--- NOTE | 2020-05-09 21:06 | Diagnostic Imaging Report ---
EXAMINATION: Abdominal radiographs, single portable view. DATE: May 09, 2020. CLINICAL INDICATION: 85-year-old male, left ureteral stone. COMPARISON: CT abdomen pelvis May 09, 2020. COMMENTS: There is a calcification of the left of midline at the level of the L4-L5 disc space, measuring 11 mm in size, which correlates with the left ureteral stone seen on same day CT abdomen and pelvis. There is an inferior vena cava filter. There are pelvic calcifications likely relating to phleboliths. The upper abdomen is not in the included field of view. There are no abnormally distended gas-filled segments of bowel. IMPRESSION: 1. The previously noted 12 mm stone in the left ureter is visible, radiographically. 2. Unremarkable bowel gas pattern. Dictated by: Dictated on workstation # [id number]
[2020-05-09 21:30] VITALS: BP 152/76
[2020-05-10] MEDS ORDERED: ACHD5005 PO (13:46)
== END 2020-05-09 21:30 | disposition home or self-care (01) ==
LOC: EDUNIT# 18:10 → ER 18:11
DX: N13.2 Hydronephrosis with renal and ureteral calculous obstruction (principal); E86.0 Dehydration; K59.00 Constipation, unspecified; G47.00 Insomnia, unspecified; Z95.1 Presence of aortocoronary bypass graft
CPT/HCPCS: 36415; 71045; 74018; 74176; 80053; 81000; 83880; 84145; 85007; 85027; 85610

== ENCOUNTER 2020-05-14 05:29 | Outpatient (RCR) | payer MEDICARE, OTHER ==
[~2020-05-14] VITALS: Ht 175 cm; Wt 104.5 kg
[~2020-05-14 05:29] MED LIST: ACHD5005 PO; CEFD300C3 PO; ENOX100D9 SQ; POLY17PO6 PO; TEMA7.5C2 PO
[2020-05-15] MEDS ORDERED: FINA5TAB6 PO (07:59)
[2020-05-15] MEDS ORDERED: BUSP5TAB59 PO (07:59)
[2020-05-15] MEDS ORDERED: WARF-48 PO (07:59)
[2020-05-15] MEDS ORDERED: ATOR10TA66 PO (07:59)
[2020-05-15] MEDS ORDERED: BUPR150T14 PO (07:59)
[2020-05-15] MEDS ORDERED: CARV3.122 PO (07:59)
[2020-05-15] MEDS ORDERED: WRF10T PO (07:59)
[2020-05-15] MEDS ORDERED: POTA10TA36 PO (07:59)
[2020-05-15] MEDS ORDERED: FURO20TA4 PO (07:59)
== END 2020-05-14 15:27 | disposition home or self-care (01) ==
LOC: PREOP 05:29
PROVIDERS: ATTEND Urology
DX: Z01.812 Encounter for preprocedural laboratory examination (principal); N20.1 Calculus of ureter; Z20.828 Contact with and (suspected) exposure to other viral communicable diseases
CPT/HCPCS: 87635

== ENCOUNTER → 2020-05-15 | Day surgery (SDC) | payer MEDICARE, OTHER ==
[~2020-05-15] VITALS: Ht 175 cm; Wt 104.5 kg
[~2020-05-15] MED LIST changes: +ATOR10TA66 PO; +BUPR150T14 PO; +BUSP5TAB59 PO; +CARV3.122 PO; +CATHETER FLUSH 10 ML SYR IV PRN; +CIPR-225 PO; +DILT60TA30 PO; +FINA5TAB6 PO; +FURO20TA4 PO; +LACTATED RINGERS 1,000 ML IV PRN; +NITR-65 PO; +PHEN-640 PO; +POTA10TA36 PO; +TMSL.4C PO; +TRM50T PO; +WARF-48 PO; +WRF10T PO; +cefTRIAXone FOR IV USE 1,000 MG in WATER (STERILE) FOR INJECTION 10 ML IV ONE
[2020-05-15 06:35] VITALS: BP 129/100
--- NOTE | 2020-05-15 06:50 | NUR ---
3 LEAD SHOWING SVT. Erika FRANKEL CRNA, WANTING 12 LEAD EKG.
[2020-05-15 07:00] LABS: INR 1.7 (0.8-1.4); PROTHROMBIN TIME PATIENT 20.2 SEC (12.2-14.7)
--- NOTE | 2020-05-15 07:13 | NUR ---
12 LEAD EKG DONE. JUNCTIONAL TACH. TOLD TO CONTACT THE PATIENT'S ESTATE MANAGER, DR. HALL, AND INFORM HIM OF THE FINDINGS.
--- NOTE | 2020-05-15 07:18 | Progress Note-Pre Operative ---
Pre-Operative Progress Note H&P Reviewed The H&P was reviewed, patient examined and no changes noted. Date Seen by Provider: May 15, 2020 Time Seen by Provider: 07:18 Date H&P Reviewed: May 15, 2020 Time H&P Reviewed: 07:18 Pre-Operative Diagnosis: LT URETERAL STONE SERA BOYD MD May 15, 2020 07:18
--- NOTE | 2020-05-15 07:26 | NUR ---
JANICE LEFT ON DR. HALL'S CELL PHONE.
--- NOTE | 2020-05-15 07:30 | NUR ---
CALLED THE REGIONAL MARKETING DIRECTOR TO LEAVE A MESSAGE TO HAVE DR. HALL CALLED ME ABOUT THE PATIENT.
--- NOTE | 2020-05-15 07:45 | NUR ---
TALKED WITH DR. HALL. ORDER TO ADMIT THE PATIENT TO ICU AND HAVE THE HOSPITALIST SEE THE PATIENT.
--- NOTE | 2020-05-15 07:50 | NUR ---
CALLED THE NURSING FIRST OFFICER AND FLIGHT INSTRUCTOR.
--- NOTE | 2020-05-15 08:45 | NUR ---
REPORT CALLED TO ZEFERINO.
--- NOTE | 2020-05-15 08:48 | Diagnostic Imaging Report ---
EXAM: ABDOMEN/KUB 1VIEW. INDICATION: Left ureteral stone. COMPARISON: CT abdomen/pelvis 05/09/2020. FINDINGS: The previously seen 1.1 cm left ureteral stone has migrated and is now along the inferior margin of the left sacroiliac joint. Phleboliths in the pelvis. Nonspecific bowel gas pattern. IVC filter. Moderate spondylotic and scoliotic changes in the lumbar spine. IMPRESSION: The left ureteral stone has migrated since the prior exams and is now along the inferior margin of the left sacroiliac joint. Dictated by: Dictated on workstation # [id number]
--- NOTE | 2020-05-15 09:05 | NUR ---
PATIENT TO ICU 10 PER CART.
== END ==
LOC: SDC 06:07
PROVIDERS: ATTEND Urology
DX: N20.1 Calculus of ureter (principal); I10 Essential (primary) hypertension; K21.9 Gastro-esophageal reflux disease without esophagitis; I25.10 Atherosclerotic heart disease of native coronary artery without angina pectoris; F32.9 Major depressive disorder, single episode, unspecified; Z79.899 Other long term (current) drug therapy; Z88.2 Allergy status to sulfonamides; Z86.73 Personal history of transient ischemic attack (TIA), and cerebral infarction without residual deficits
CPT/HCPCS: 36415; 74018; 85610; 87081; 93005

== ENCOUNTER 2020-05-17 06:12 | Day surgery (SDC) | payer MEDICARE, OTHER ==
[2020-05-17] VITALS (15 sets, daily range): BP systolic 120–161; BP diastolic 72–97
[~2020-05-17 06:12] MED LIST changes: -CATHETER FLUSH 10 ML SYR IV PRN; -CIPR-225 PO; -DILT60TA30 PO; -LACTATED RINGERS 1,000 ML IV PRN; -NITR-65 PO; -PHEN-640 PO; -TMSL.4C PO; -TRM50T PO; -cefTRIAXone FOR IV USE 1,000 MG in WATER (STERILE) FOR INJECTION 10 ML IV ONE
[2020-05-17] MEDS ORDERED: cefTRIAXone FOR IV USE 1,000 MG in WATER (STERILE) FOR INJECTION 10 ML IV ONE (06:30)
[2020-05-17] MEDS ORDERED: ONDANSETRON 4 MG/2 ML (SDV) Z0FRAN ONE (06:42)
[2020-05-17] MEDS ORDERED: LIDOCAINE PF 2% 5 ML (XYLOCAINE) VIAL ONE (06:42)
[2020-05-17] MEDS ORDERED: MIDAZOLAM 2 MG/2 ML (VERSED) VIAL ONE (06:42)
[2020-05-17] MEDS ORDERED: SEVOFLURANE (ULTANE) 15 ML INHAL SOLN ONE ×3 (06:42→08:01)
[2020-05-17] MEDS ORDERED: proPOfol 200 MG/20 ML (DIPRIVAN) VIAL IV ONE (06:42)
[2020-05-17] MEDS ORDERED: fentaNYL INJECTION 100 MCG/2 ML AMP ONE (06:43)
--- NOTE | 2020-05-17 07:11 | Progress Note-Pre Operative ---
Pre-Operative Progress Note H&P Reviewed The H&P was reviewed, patient examined and no changes noted. Date Seen by Provider: May 17, 2020 Time Seen by Provider: 07:10 Date H&P Reviewed: May 17, 2020 Time H&P Reviewed: 07:10 Pre-Operative Diagnosis: LT DISTAL URETERAL STONE SERA BOYD MD May 17, 2020 07:11
--- NOTE | 2020-05-17 07:13 | Progress Note-Post Operative ---
Post-Operative Progess Note Surgeon (s)/Glaze Handler (s) Surgeon SERA BOYD MD Glaze Handler: NONE Pre-Operative Diagnosis LT DISTAL URETERAL STONE Post-Operative Diagnosis SAME Procedure & Operative Findings Date of Procedure 05/17/20 Procedure Performed/Findings CYSTOSCOPY Anesthesia Type GENERAL Estimated Blood Loss Estimated blood loss (mL): NONE Specimens/Packing Specimens Removed NONE Packing: NONE SERA BOYD MD May 17, 2020 07:13
--- NOTE | 2020-05-17 07:14 | Progress Note-Post Operative ---
Post-Operative Progess Note Surgeon (s)/Hand Laminator (s) Surgeon SERA BOYD MD Hand Laminator: NONE Pre-Operative Diagnosis LT DISTAL URETERAL STONE Post-Operative Diagnosis SAME Procedure & Operative Findings Date of Procedure 05/17/20 Procedure Performed/Findings CYSTOSCOPY, LT URETERAL STONE MANIPULATION AND STENT INSERTION Anesthesia Type GENERAL Estimated Blood Loss Estimated blood loss (mL): NONE Specimens/Packing Specimens Removed NONE Packing: NONE SERA BOYD MD May 17, 2020 07:14
[2020-05-17] MEDS ORDERED: LACTATED RINGERS 1,000 ML IV PRN (07:15)
--- NOTE | 2020-05-17 07:29 | Diagnostic Imaging Report ---
EXAMINATION: Abdominal radiographs, single supine view, 2 images. DATE: May 17, 2020. CLINICAL INDICATION: 85-year-old male, exam prior to shock wave lithotripsy. COMPARISON: May 15, 2020. CT abdomen pelvis May 09, 2020. COMMENTS: There is an inferior vena cava filter noted. There are gas-filled segments of small and large bowel which are not grossly distended. There is a calcification to the left of midline measuring approximately 9 mm in size which may relate to a distal left ureteral stone. There are pelvic calcifications additionally present which most likely relate to phleboliths. IMPRESSION: 1. 9 mm calcification to the left of midline at the level of the pelvis most likely relating to a stone in the left distal ureter. This is more inferiorly positioned than on prior CT abdomen and pelvis exam of May 09, 2020. Dictated by: Dictated on workstation # [id number]
[2020-05-17 07:44] LABS: INR 1.2 (0.8-1.4); PROTHROMBIN TIME PATIENT 15.8 SEC (12.2-14.7)
[2020-05-17] MEDS ORDERED: ROCURONIUM 10 MG/ML 5 ML SYRINGE IV ONE (07:44)
--- NOTE | 2020-05-17 08:08 | Discharge Inst-Urology ---
Discharge Inst-Urology Reconcile Patient Problems Problems Reviewed?: Yes Final Diagnosis LT DISTAL URETERAL STONE Patient Instructions/Follow Up Plan/Assessment/Instructions Please make appointment to been seen in office Sunday 05/27, KUB prior to it. In 48 hours, if no bleeding, may resume Coumadin/Warfarin, then HOLD IT AGAIN FROM THURSDAY 05/24 Increase oral fluids for 48 hours and then as needed. Diet and Activity as tolerated. If questions or concerns contact your physician Or seek help at emergency department. SERA BOYD MD May 17, 2020 08:08
[2020-05-17] MEDS ORDERED: morphine INJ 10 MG/ML 1ML (SYR OR VIAL) IVP ONE (08:15)
[2020-05-17] MEDS ORDERED: fentaNYL INJECTION 100 MCG/2 ML AMP IVP ONE (08:15)
[2020-05-17] MEDS ORDERED: ONDANSETRON 4 MG/2 ML (SDV) Z0FRAN IVP PRN (08:15)
[2020-05-17] MEDS ORDERED: PHEN-640 PO (08:34)
[2020-05-17] MEDS ORDERED: CIPR-225 PO (08:34)
[2020-05-17] MEDS ORDERED: TRM50T PO (08:34)
[2020-05-17] MEDS ORDERED: DILT60TA30 PO (10:32)
--- NOTE | 2020-05-17 11:43 | NUR ---
PAT[place] [facility] [place]OX. 0905 WITH REPORTED HIGH HEART RATE AND ORDER FOR EKG. EKG OBTAINED. REPORTED FINDINGS TO BROCK ALBERTS. RECEIVED ORDER TO CONSULT CARDIOLOGY. THIS RN ATTEMPTED TO CALL PATIENT'S PRIMARY LEAD PAINTER, NO ANSWER. THIS RN CALLED DR. HALL'S OFFICE, INSTRUCTED TO CALL DR. COSBY DUE TO HIM BEING POTASH FLAKER. THIS RN PAGED DR. COSBY AT 0925, RECEIVED NO CALL BACK. AT 0940 REPORTED TO LAYNE GASPARBUZZLE BUFFER. AT APPROX. 0955 LAYNE GASPARBUZZLE BUFFER CALLED ENOCH BRUNO AT DR. AMOS'S (THE PATIENT'S PCP) TO REPORT EKG RESULTS. RECEIVED ORDER TO GIVE PATIENT CARDIZEM 60MG PO X1 AND CALL IN MEDICATION TO PHARMACY. PATIENT WILL HAVE A FOLLOW UP APPOINTMENT WITH DR. AMOS'S OFFICE ON Wednesday05/20/20 AT 1300. THIS RN AT APPROX 1030 ASSESSES PATIENT PRIOR TO ADMINISTERING CARDIZEM, PATIENT CONVERTED BACK TO SINUS RHYTHM WITH HEART RATE OF 66. THIS RN CALLED ENOCH BRUNO FOR UPDATE AND RECEIVED ORDER TO HOLD CARDIZEM, FAX EKG RESULTS, KEEP FOLLOW UP APPOINTMENT, AND SCHEDULE CARDIOLOGY FOLLOW UP APPT. ENOCH BRUNO REPORTS TALKING TO ENOCH TOMAS. PATIENT IS TO SEE DR. HALL ON Wednesday05/21/20 AT 0900. AT 1105 VITAL SIGNS REMAINED STABLE, CALLED XRAY TO OBTAIN POST OP KUB. AT 1135 DISCUSSED WITH DAUGHTER ERASTO PLAN OF CARE, VITALS STABLE. [place] [facility] [place] 1143.
--- NOTE | 2020-05-17 11:47 | Diagnostic Imaging Report ---
INDICATION: POST ESWL. TECHNIQUE: Single supine view of the abdomen 11:21 AM CORRELATION STUDY: 05/17/2020 FINDINGS: Since prior study, a left ureteral stent has been placed. Proximal aspect superimposed over the expected location mid left kidney distal portion just to the right of midline into the pelvis. Approximately 9 mm calcification adjacent to the distal left stent is unchanged. Additional likely phlebolith calcifications in the pelvis are present as well. There is a approximately 1 cm calcification in the right upper quadrant. Inferior vena cava filter present. Bowel gas pattern appears to be nonobstructed. IMPRESSION: 1. Left ureteral stent has been placed. The previously identified approximately 9 mm stone is unchanged in position, just adjacent to the distal stent. Dictated by: Dictated on workstation # [id number]
--- NOTE | 2020-05-17 13:32 | OPERATIVE REPORT ---
DATE OF SERVICE: 05/17/2020 PREOPERATIVE DIAGNOSIS: Left distal ureteral stone. POSTOPERATIVE DIAGNOSIS: Left distal ureteral stone. OPERATION PERFORMED: Cystoscopy, left ureteral stone manipulation and insertion of left double stent. SURGEON: Jacky Boyd MD. ANESTHESIA: General. COMPLICATIONS: None. DESCRIPTION OF PROCEDURE: Under satisfactory general anesthesia, the patient in lithotomy position, genitalia were prepped and draped in the usual sterile fashion. Cystoscope was introduced under vision. The anterior urethra was normal. The prostate showed enlargement with a median bar. There is a coarse trabeculation of the bladder and upward and lateral might displacement of the ureters. The efflux on the right side was normal, the left side was absent. Using the foroblique lens, I was able to pass a spiral tip 6-Israeli ureteral catheter passed a stone, was a lot of purulent urine coming out from it. I elected not to perform an ureteroscopy with lithotripsy because of the pus as well as the direction of the ureter, which may not be able to accommodate the semi-rigid ureteroscope. I did not want to mess up things, so I went ahead and passed a 6-Israeli 26 cm double-J stent all the way up to the kidney. I removed the guidewire and the stent was seen jetting nicely proximally fluoroscopically and distally endoscopically. I could see again purulent urine coming out through the stent and holes as well as around it from the ureter. The bladder was evacuated and cystoscope was removed. The patient tolerated the procedure and anesthesia well and was sent to recovery room in stable condition. PLAN: We will have him resume his Coumadin tomorrow if no bleeding. We will have him hold it again Wednesday, see him back at the office on to plan ESWL on the . We will cover him with antibiotics and again we will give him some Xanax before coming like we did today to prevent arrhythmia from anxiety like he did last time. The plan was fully explained to the daughter. Job ID: [id number] DocumentID: [id number] Dictated Date: 05/17/2020 08:11:57 [employer] History Teacher Date: 05/17/2020 13:31:50 Dictated By: JACKY BOYD MD [facility]
== END 2020-05-17 11:43 | disposition home or self-care (01) ==
LOC: SDC 06:12
PROVIDERS: ATTEND Urology
DX: N20.1 Calculus of ureter (principal); I10 Essential (primary) hypertension; I25.10 Atherosclerotic heart disease of native coronary artery without angina pectoris; I48.91 Unspecified atrial fibrillation; Z79.899 Other long term (current) drug therapy; Z88.2 Allergy status to sulfonamides; Z95.1 Presence of aortocoronary bypass graft; Z86.73 Personal history of transient ischemic attack (TIA), and cerebral infarction without residual deficits
CPT/HCPCS: 52330; 52332; 74018; 76000; 85610; 87081; 93005; C2625; 36415

== ENCOUNTER 2020-05-23 05:51 | Outpatient (RCR) | payer MEDICARE, OTHER ==
[~2020-05-23 05:51] MED LIST changes: +CIPR-225 PO; +DILT60TA30 PO; +PHEN-640 PO; +TRM50T PO
== END 2020-05-23 16:00 | disposition home or self-care (01) ==
LOC: PREOP 05:51
PROVIDERS: ATTEND Urology
DX: Z01.818 Encounter for other preprocedural examination (principal)

== ENCOUNTER 2020-05-24 09:00 | Outpatient (RCR) | payer MEDICARE, OTHER ==
[2020-05-28] MEDS ORDERED: TRM50T PO (09:14)
[2020-05-28] MEDS ORDERED: NITR-65 PO (09:14)
[2020-05-28] MEDS ORDERED: TMSL.4C PO (09:14)
[2020-06-11] MEDS ORDERED: MTP25TSR PO (12:19)
[2020-06-11] MEDS ORDERED: WARF-48 PO ×2 (12:19)
[2020-06-11] MEDS ORDERED: TMSL.4C PO (12:19)
[2020-06-12] MEDS ORDERED: NITR-65 PO (09:27)
[2020-06-12] MEDS ORDERED: TRM50T PO (09:27)
[2020-06-12] MEDS ORDERED: TMSL.4C PO (09:27)
== END 2020-08-22 | disposition home or self-care (01) ==
LOC: CARD 09:00
PROVIDERS: ATTEND Physician Assistant
DX: I48.0 Paroxysmal atrial fibrillation (principal)
CPT/HCPCS: 93225; 93226

== ENCOUNTER 2020-05-28 06:11 | Day surgery (SDC) | payer MEDICARE, OTHER ==
--- NOTE | 2020-05-17 11:16 | Anesthesia-General Post-Op ---
General Patient Condition Mental Status/LOC: Same as Preop Cardiovascular: Unsatisfactory Nausea/Vomiting: Absent Respiratory: Satisfactory Pain: Controlled Post Op Complications Complications None Follow Up Care/Instructions Patient Instructions None needed. Anesthesia/Patient Condition Patient Condition About 5 minutes before being discharged from recovery, the patient's HR spiked up to 130s-150s. The patient was unaware and states he didn't feel any different. The patient has had recent episodes of this, most recent being two d ays ago which caused his surgery to be cancelled then. The patient was admitted for a short time and Dr. Burnette saw him but the patient converted back to NSR with HR in 60s and went home. After failure to convert with maneuvers such as bearing down and cold rag to the face, cardiology was consulted again today when the patient was in SDC. The patient's HR remained 130's for about an hour prior to converting to NSR with HR 60s. ENOCH Robb is managing due to no cardiology coverage at this time. COSME ALEXANDER CRNA May 17, 2020 11:16
[~2020-05-28] VITALS: Ht 175 cm; Wt 102.0 kg
[2020-05-28] VITALS (8 sets, daily range): BP systolic 115–143; BP diastolic 63–82
[2020-05-28] MEDS ORDERED: LACTATED RINGERS 1,000 ML IV PRN (06:45)
[2020-05-28] MEDS ORDERED: ONDANSETRON 4 MG/2 ML (SDV) Z0FRAN ONE (06:51)
[2020-05-28] MEDS ORDERED: SEVOFLURANE (ULTANE) 15 ML INHAL SOLN ONE (06:51)
[2020-05-28] MEDS ORDERED: fentaNYL INJECTION 100 MCG/2 ML AMP ONE (06:51)
[2020-05-28] MEDS ORDERED: proPOfol 200 MG/20 ML (DIPRIVAN) VIAL IV ONE (06:51)
[2020-05-28] MEDS ORDERED: LIDOCAINE PF 2% 5 ML (XYLOCAINE) VIAL ONE (06:51)
[2020-05-28] MEDS ORDERED: ROCURONIUM 10 MG/ML 5 ML SYRINGE IV ONE (06:51)
[2020-05-28 07:00] LABS: INR 1.1 (0.8-1.4)
[2020-05-28] MEDS ORDERED: cefTRIAXone 1,000 MG/SWFI 10 ML IV PUSH IV ONE ×2 (07:00)
[2020-05-28] MEDS ORDERED: CATHETER FLUSH 10 ML SYR IV PRN (07:00)
--- NOTE | 2020-05-28 07:04 | Progress Note-Pre Operative ---
Pre-Operative Progress Note H&P Reviewed The H&P was reviewed, patient examined and no changes noted. Date Seen by Provider: May 28, 2020 Time Seen by Provider: 07:04 Date H&P Reviewed: May 28, 2020 Time H&P Reviewed: 07:04 Pre-Operative Diagnosis: LT DISTAL URETERAL STONE SERA BOYD MD May 28, 2020 07:04
--- NOTE | 2020-05-28 07:36 | Progress Note-Post Operative ---
Post-Operative Progess Note Surgeon (s)/Step Down Nurse (s) Surgeon SERA BOYD MD Step Down Nurse: NONE Pre-Operative Diagnosis LT DISTAL URETERAL STONE Post-Operative Diagnosis SAME Procedure & Operative Findings Date of Procedure 05/28/20 Procedure Performed/Findings LT ESWL Anesthesia Type GENERAL Estimated Blood Loss Estimated blood loss (mL): NONE Specimens/Packing Specimens Removed NONE Packing: NONE SERA BOYD MD May 28, 2020 07:36
--- NOTE | 2020-05-28 07:40 | Discharge Inst-Urology ---
Discharge Inst-Urology Reconcile Patient Problems Problems Reviewed?: Yes Final Diagnosis LT DISTAL URETERAL STONE Patient Instructions/Follow Up Plan/Assessment/Instructions Please make appointment to been seen in office Sunday 06/10, KUB prior to it. KUB on way home Post ESWL instructions In 48 hours, if no bleedings, may resume Coumadin/Warfarin, hold it again Friday 06/08 Increase oral fluids for 48 hours and then as needed. Diet and Activity as tolerated. If questions or concerns contact your physician Or seek help at emergency department. SERA BOYD MD May 28, 2020 07:40
[2020-05-28] MEDS ORDERED: FUROSEMIDE 40 MG/4 ML INJ (LASIX) ONE (07:43)
[2020-05-28] MEDS ORDERED: KETOROLAC 30 MG/ML VIAL ONE (07:43)
[2020-05-28] MEDS ORDERED: HYDROmorphone 2 MG/ML VIAL (DILAUDID) IV ONE (08:15)
[2020-05-28] MEDS ORDERED: ONDANSETRON 4 MG/2 ML (SDV) Z0FRAN IVP PRN (08:15)
--- NOTE | 2020-05-28 08:42 | Diagnostic Imaging Report ---
EXAMINATION: Abdominal radiographs, single portable view. DATE: May 28, 2020. CLINICAL INDICATION: 85-year-old male, preoperative exam prior to shock wave lithotripsy. COMPARISON: May 17, 2020. COMMENTS: There is a left ureteral stent. There is a calcification of the left of midline at the level of the mid sacrum. There are pelvic calcifications likely relating to phleboliths. This is an unchanged appearance since the comparison study. There is a calcification overlying the expected position of the right kidney which is also unchanged. There is an inferior vena cava filter noted. There are no identified abnormally distended gas-filled segments of bowel. IMPRESSION: 1. Calcification to the left of midline at the level of the mid sacrum which may relate to a stone in the left distal ureter. 2. Nonobstructing right renal stone. Dictated by: Dictated on workstation # [id number]
[2020-05-28] MEDS ORDERED: TMSL.4C PO ×2 (09:14)
[2020-05-28] MEDS ORDERED: TRM50T PO ×2 (09:14)
[2020-05-28] MEDS ORDERED: NITR-65 PO ×2 (09:14)
--- NOTE | 2020-05-28 09:30 | NUR ---
1200 CC OF IV FLUID GIVEN.
--- NOTE | 2020-05-28 09:55 | Diagnostic Imaging Report ---
EXAMINATION: Supine abdomen at 9:33 AM INDICATION: Left flank pain As noted on the exam performed earlier today at 6:52 AM, there is a ureteral stent in place on the left. The prior study did reveal a 9 mm calcific density adjacent to and just inferior to the left sacroiliac joint. That calcific density is again identified and does not seem to have changed significantly in position. The other calcifications overlying the pelvis seen previously are again evident and no different. These are most likely phleboliths. The 14 mm calculus overlying the right kidney seen previously is unchanged. There is also a 4.8 mm calculus overlying the superior pole of the left kidney. This was not clearly evident on the prior study. The IVC filter seen previously is also again identified and no different. IMPRESSION: The 9 mm calculus adjacent to the ureteral stent on the left seen previously is again evident and does not appear to have changed significantly in position. The overall appearance of the abdomen itself is otherwise stable. Dictated by: Dictated on workstation # [id number]
--- NOTE | 2020-05-28 10:14 | Anesthesia-General Post-Op ---
General Patient Condition Mental Status/LOC: Same as Preop Cardiovascular: Satisfactory Nausea/Vomiting: Absent Respiratory: Satisfactory Pain: Controlled Complications: Absent Post Op Complications Complications None Follow Up Care/Instructions Patient Instructions None needed. Anesthesia/Patient Condition Patient Condition Patient is doing well, no complaints, stable vital signs, no apparent adverse anesthesia problems. No complications reported per nursing. D/C home per [facility] Criteria: Yes REECE FRANKEL CRNA May 28, 2020 10:14
--- NOTE | 2020-05-28 14:20 | OPERATIVE REPORT ---
DATE OF SERVICE: 05/28/2020 PREOPERATIVE DIAGNOSIS: Left distal ureteral stone. POSTOPERATIVE DIAGNOSIS: Left distal ureteral stone. OPERATION PERFORMED: Left ESWL. SURGEON: Jacky Boyd MD ANESTHESIA: General. COMPLICATIONS: None. DESCRIPTION OF PROCEDURE: Under satisfactory general anesthesia, the patient in supine position on the ESWL table, the left distal ureteral stone was localized. Shocks were delivered at an increasing kV to 11. A total of 3500 shocks were delivered. The stone looked well fragmented and layering. The patient received 40 mg of Lasix and 30 mg of Toradol IV at the end of the procedure. He tolerated the procedure and anesthesia well and was sent to recovery room in stable condition. Job ID: [id number] DocumentID: [id number] Dictated Date: 05/28/2020 08:00:46 Stick Feeder Date: 05/28/2020 14:19:36 Dictated By: JACKY BOYD MD
== END 2020-05-28 09:45 | disposition home or self-care (01) ==
LOC: SDC 06:11
PROVIDERS: ATTEND Urology
DX: N20.1 Calculus of ureter (principal); I10 Essential (primary) hypertension; I48.91 Unspecified atrial fibrillation; F32.9 Major depressive disorder, single episode, unspecified; K21.9 Gastro-esophageal reflux disease without esophagitis; Z79.899 Other long term (current) drug therapy; Z88.2 Allergy status to sulfonamides; Z86.73 Personal history of transient ischemic attack (TIA), and cerebral infarction without residual deficits; Z95.5 Presence of coronary angioplasty implant and graft; Z20.828 Contact with and (suspected) exposure to other viral communicable diseases
CPT/HCPCS: 50590; 74018; 85610; 85730; 87081; U0002; 36415; 87635

== ENCOUNTER → 2020-06-10 | Outpatient (CLI) | payer MEDICARE, OTHER ==
[~2020-06-10] MED LIST changes: +MTP25TSR PO; +NITR-65 PO; +TMSL.4C PO
--- NOTE | 2020-06-10 08:58 | Diagnostic Imaging Report ---
INDICATION: Urinary tract calculi. TECHNIQUE/COMPARISON: A supine image of the abdomen was obtained with comparison made to the study of 05/28/2020. FINDINGS: The left double-J nephroureteral stent remains in stable position. There appears to be a decrease in the overall size of the calculus adjacent to the mid to distal portion of the left stent near the iliac vasculature. Evaluation is somewhat limited due to overlap with atherosclerotic calcification. Numerous calcified phleboliths are seen in the pelvis bilaterally. A 1.4 x 0.6 cm calculus is again seen projecting over the right kidney. IMPRESSION: Probable mild overall decrease in the calcification adjacent to the mid to distal portion of the left ureteric stent. This is superimposed with iliac atherosclerotic calcification which limits assessment. Otherwise, no new abnormality or adverse change is identified. Dictated by: Dictated on workstation # [id number]
== END ==
LOC: RAD 08:29
PROVIDERS: ATTEND Urology
DX: N20.1 Calculus of ureter (principal)
CPT/HCPCS: 74018

== ENCOUNTER 2020-06-11 05:29 | Outpatient (RCR) | payer MEDICARE, OTHER ==
[~2020-06-11] VITALS: Ht 175 cm; Wt 102.0 kg
[~2020-06-11 05:29] MED LIST changes: -MTP25TSR PO
[2020-06-11] MEDS ORDERED: MTP25TSR PO (12:19)
[2020-06-11] MEDS ORDERED: WARF-48 PO ×2 (12:19)
[2020-06-11] MEDS ORDERED: TMSL.4C PO (12:19)
[2020-06-12] MEDS ORDERED: TMSL.4C PO (09:27)
[2020-06-12] MEDS ORDERED: NITR-65 PO (09:27)
[2020-06-12] MEDS ORDERED: TRM50T PO (09:27)
== END 2020-06-11 11:51 | disposition home or self-care (01) ==
LOC: PREOP 05:29
PROVIDERS: ATTEND Urology
DX: Z01.812 Encounter for preprocedural laboratory examination (principal); N20.1 Calculus of ureter; Z20.828 Contact with and (suspected) exposure to other viral communicable diseases
CPT/HCPCS: 87635

== ENCOUNTER 2020-06-12 06:12 | Day surgery (SDC) | payer MEDICARE, OTHER ==
[2020-06-12] VITALS (9 sets, daily range): BP systolic 115–169; BP diastolic 64–91
[~2020-06-12] VITALS: Ht 175 cm; Wt 102.0 kg
[~2020-06-12 06:12] MED LIST changes: +MTP25TSR PO
[2020-06-12] MEDS ORDERED: cefTRIAXone FOR IV USE 1,000 MG in WATER (STERILE) FOR INJECTION 10 ML IV ONE (06:45)
[2020-06-12] MEDS: LACTATED RINGERS 1,000 ML IV PRN ×2 (06:59→08:53)
[2020-06-12] MEDS ORDERED: fentaNYL INJECTION 100 MCG/2 ML AMP ONE (07:07)
[2020-06-12 07:16] LABS: INR 1.2 (0.8-1.4)
--- NOTE | 2020-06-12 07:18 | Progress Note-Pre Operative ---
Pre-Operative Progress Note H&P Reviewed The H&P was reviewed, patient examined and no changes noted. Date Seen by Provider: Jun 12, 2020 Time Seen by Provider: 07:17 Date H&P Reviewed: Jun 12, 2020 Time H&P Reviewed: 07:18 Pre-Operative Diagnosis: LT DISTAL URETERAL STONE SERA BOYD MD Jun 12, 2020 07:18
--- NOTE | 2020-06-12 07:34 | Diagnostic Imaging Report ---
INDICATION: ESWL. FINDINGS: Supine view of the abdomen demonstrates a left ureteral stent remaining in place. A IVC filter is present. Calculi overlying the right kidney is unchanged. Phleboliths are present in the pelvis. Bowel gas pattern appears normal. IMPRESSION: Stable calculi and a ureteral stent. Dictated by: Dictated on workstation # [id number]
--- NOTE | 2020-06-12 07:51 | Progress Note-Post Operative ---
Post-Operative Progess Note Surgeon (s)/Scraper Loader Operator (s) Surgeon SERA BOYD MD Scraper Loader Operator: NONE Pre-Operative Diagnosis LT DISTAL URETERAL STONE Post-Operative Diagnosis SAME Procedure & Operative Findings Date of Procedure 06/12/20 Procedure Performed/Findings WITH REMOVAL OF LT STENT AND LT ESWL Anesthesia Type GENERAL Estimated Blood Loss Estimated blood loss (mL): NONE Specimens/Packing Specimens Removed NONE TO PATH Packing: NONE SERA BOYD MD Jun 12, 2020 07:51
--- NOTE | 2020-06-12 07:54 | Discharge Inst-Urology ---
Discharge Inst-Urology Reconcile Patient Problems Problems Reviewed?: Yes Final Diagnosis LT DISTAL URETERAL STONES Patient Instructions/Follow Up Plan/Assessment/Instructions Please make appointment to been seen in office Wednesday 06/21, KUB prior to it. KUB on way home Post ESWL instructions In 48 hours, if no bleeding, may resume Warfarin Increase oral fluids for 48 hours and then as needed. Diet and Activity as tolerated. If questions or concerns contact your physician Or seek help at emergency department. SERA BOYD MD Jun 12, 2020 07:54
[2020-06-12] MEDS ORDERED: ONDANSETRON 4 MG/2 ML (SDV) Z0FRAN ONE (08:04)
[2020-06-12] MEDS ORDERED: FUROSEMIDE 40 MG/4 ML INJ (LASIX) ONE (08:04)
[2020-06-12] MEDS ORDERED: LIDOCAINE PF 2% 5 ML (XYLOCAINE) VIAL ONE (08:04)
[2020-06-12] MEDS ORDERED: proPOfol 200 MG/20 ML (DIPRIVAN) VIAL IV ONE (08:04)
[2020-06-12] MEDS ORDERED: KETOROLAC 30 MG/ML VIAL ONE (08:04)
[2020-06-12] MEDS ORDERED: SEVOFLURANE (ULTANE) 15 ML INHAL SOLN ONE (08:17)
[2020-06-12] MEDS ORDERED: NITR-65 PO (09:27)
[2020-06-12] MEDS ORDERED: TRM50T PO (09:27)
[2020-06-12] MEDS ORDERED: TMSL.4C PO (09:27)
--- NOTE | 2020-06-12 09:30 | Anesthesia-General Post-Op ---
General Patient Condition Mental Status/LOC: Same as Preop Cardiovascular: Satisfactory Nausea/Vomiting: Absent Respiratory: Satisfactory Pain: Controlled Complications: Absent Post Op Complications Complications None Follow Up Care/Instructions Patient Instructions None needed. Anesthesia/Patient Condition Patient Condition Patient is doing well, no complaints, stable vital signs, no apparent adverse anesthesia problems. No complications reported per nursing. JACKI JERNIGAN CRNA Jun 12, 2020 09:30
--- NOTE | 2020-06-12 09:44 | OPERATIVE REPORT ---
DATE OF SERVICE: 06/12/2020 PREOPERATIVE DIAGNOSIS: Left distal ureteral stone. POSTOPERATIVE DIAGNOSIS: Left distal ureteral stone. OPERATION PERFORMED: Cystoscopy, removal of left ureteral stent and left ESWL. SURGEON: Jacky Boyd MD ANESTHESIA: General. COMPLICATIONS: None. DESCRIPTION OF PROCEDURE: Under satisfactory general anesthesia, the patient in supine position on the ESWL table, the genitalia, abdomen and thigh were prepped and draped in the usual sterile fashion. Flexible cystoscope was introduced under vision. The distal end of the left ureteral stent was visualized, was grasped with grasping forceps and removed completely. Then, we localized the left distal ureteral stones. Delivered shocks of increasing kV up to 11. A total dose of 3000 shocks were delivered with complete fragmentation of the stones. The patient received 40 mg of Lasix and 30 mg of Toradol IV at the end of the procedure. He tolerated the procedure and anesthesia well and was sent to recovery room in stable condition. Job ID: [id number] DocumentID: [id number] Dictated Date: 06/12/2020 08:09:41 Tamale Maker Date: 06/12/2020 09:43:59 Dictated By: JACKY BOYD MD
--- NOTE | 2020-06-12 11:28 | Diagnostic Imaging Report ---
INDICATION: Post lithotripsy. COMPARISON: Imaging from the same date. TECHNIQUE: Two radiographs of the abdomen dated 06/12/2020. FINDINGS: The minimally visualized lung bases are clear. Interval removal of previously noted left ureteral stent. Inferior vena cava filter is again identified. 1.5 cm calcification overlying the right renal shadow is again identified and stable. No definite calcifications overlying the left renal shadow. Multiple calcifications within the lower pelvis are again identified and unchanged from the prior examination likely related to phleboliths. 1.2 cm region of calcifications are noted overlying the left sacrum. This likely relates to a fragmented left ureteral calculus status post lithotripsy. Background vascular calcifications. Nonobstructive bowel gas pattern. No free air. Scattered osseous degenerative changes without acute osseous abnormality. IMPRESSION: 1.2 cm region of calcifications overlying the left sacrum likely relates to left ureteral calculi fragments status post lithotripsy. Recommend continued radiographic follow-up. Interval removal of left ureteral stent. Persistent right renal calculus. Dictated by: Dictated on workstation # [id number]
== END 2020-06-12 10:45 ==
LOC: SDC 06:12
PROVIDERS: ATTEND Urology
DX: N20.1 Calculus of ureter (principal); I25.10 Atherosclerotic heart disease of native coronary artery without angina pectoris; I48.91 Unspecified atrial fibrillation; K21.9 Gastro-esophageal reflux disease without esophagitis; F32.9 Major depressive disorder, single episode, unspecified; Z79.899 Other long term (current) drug therapy; Z88.2 Allergy status to sulfonamides
CPT/HCPCS: 36415; 74018; 85610; 87081

== ENCOUNTER → 2020-06-25 | Outpatient (CLI) | payer MEDICARE, OTHER ==
--- NOTE | 2020-06-25 16:01 | Diagnostic Imaging Report ---
INDICATION: URETERAL STONE. TECHNIQUE: 2 supine views of the abdomen 3:04 PM CORRELATION STUDY: 06/12/2020 FINDINGS: 14 mm calcification in the right upper quadrant, stable. Also appears to be additional smaller calcification over the bilateral renal silhouette with previously noted calcification over the left sacral ala not visualized at follow-up. Additional calcifications of the pelvis appear unchanged, likely phleboliths. Inferior vena cava filter is present. Fragmented sternal wires over the inferior chest. Rightward curvature of the lumbar spine. Vascular calcifications as noted. IMPRESSION: 1. Stable calcifications over the renal silhouettes. 2. Previously noted calcifications over the left sacral alar not visualized at follow-up. Dictated by: Dictated on workstation # [id number]
== END ==
LOC: RAD 14:41
PROVIDERS: ATTEND Urology
DX: N20.1 Calculus of ureter (principal); N28.89 Other specified disorders of kidney and ureter
CPT/HCPCS: 74018

== ENCOUNTER → 2020-10-09 | Outpatient (CLI) | payer MEDICARE, OTHER ==
[2020-10-09 15:07] LABS: BASOPHILS # (AUTO) 0.1 10^3/uL (0.0-0.1); BASOPHILS % (AUTO) 1 % (0-10); EOSINOPHILS # (AUTO) 0.4 10^3/uL (0.0-0.3); EOSINOPHILS % (AUTO) 4 % (0-10); HEMATOCRIT 44 % (40-54); HEMOGLOBIN 14.3 g/dL (13.3-17.7); LYMPHOCYTES # (AUTO) 1.8 10^3/uL (1.0-4.0); LYMPHOCYTES % (AUTO) 20 % (12-44); MEAN CORPUSCULAR HEMOGLOBIN 31 pg (25-34); MEAN CORPUSCULAR HGB CONC 33 g/dL (32-36); MEAN CORPUSCULAR VOLUME 95 fL (80-99); MEAN PLATELET VOLUME 11.2 fL (9.0-12.2); MONOCYTES # (AUTO) 1.1 10^3/uL (0.0-1.0); MONOCYTES % (AUTO) 13 % (0-12); NEUTROPHILS # (AUTO) 5.3 10^3/uL (1.8-7.8); NEUTROPHILS % (AUTO) 61 % (42-75); PLATELET COUNT 236 10^3/uL (130-400); WHITE BLOOD COUNT 8.6 10^3/uL (4.3-11.0)
--- NOTE | 2020-10-09 15:07 | Diagnostic Imaging Report ---
CLINICAL INDICATION: Patient fell last week and complains of imbalance after fall. EXAM: Axial CT scan of the brain without IV contrast with coronal and sagittal reformatted images. Auto Exposure Controls were utilized during the CT exam to meet ALARA standards for radiation dose reduction. COMPARISON: CT scan of the head and maxillofacial structures without IV contrast dated 06/19/2019. FINDINGS: There is no evidence of acute cerebral infarct, intracranial hemorrhage, or gross mass effect. There is no significant change to the diffuse brain parenchymal volume loss. There is no brain herniation midline shift. There is no CT evidence of intracranial hemorrhage, acute cerebral infarct, or hydrocephalus. Basal cisterns are unremarkable. The extracranial soft tissues, skull, and orbits are unremarkable. There is a small mucus retention cyst or polyp in the right maxillary sinus which was not imaged on the prior study. Remainder of the paranasal sinuses are clear. Mastoid air cells are clear. IMPRESSION: 1: There is a small mucus retention cyst or polyp in right maxillary sinus. This was not imaged on the prior study. 2: Stable CT scan of the brain with no interval acute intracranial process. Dictated by: Dictated on workstation # [id number]
[2020-10-09 15:25] LABS: INR 2.1 (0.8-1.4); PROTHROMBIN TIME PATIENT 24.1 SEC (12.2-14.7)
[2020-10-09 15:32] LABS: ALANINE AMINOTRANSFERASE 27 U/L (0-55); ALBUMIN 4.3 GM/DL (3.2-4.5); ALKALINE PHOSPHATASE 81 U/L (40-136); BILIRUBIN,TOTAL 0.7 MG/DL (0.1-1.0); BUN/CREATININE RATIO 19; CALCIUM 9.5 MG/DL (8.5-10.1); CARBON DIOXIDE 24 MMOL/L (21-32); CHLORIDE 105 MMOL/L (98-107); CREATININE SERUM 1.02 MG/DL (0.60-1.30); GFR ESTIMATED > 60; GLUCOSE 123 MG/DL (70-105); POTASSIUM 4.2 MMOL/L (3.6-5.0); SODIUM 140 MMOL/L (135-145); TOTAL PROTEIN 7.7 GM/DL (6.4-8.2)
[2020-10-09 15:40] LABS: BILIRUBIN,URINE NEGATIVE (NEGATIVE); CLARITY,URINE CLEAR; COLOR,URINE DARK YELLOW; GLUCOSE, URINE (UA) NEGATIVE (NEGATIVE); KETONES,URINE NEGATIVE (NEGATIVE); LEUKOCYTE ESTERASE ,URINE NEGATIVE (NEGATIVE); NITRITE,URINE NEGATIVE (NEGATIVE); PROTEIN,URINE NEGATIVE (NEGATIVE)
[2020-10-09 15:57] LABS: AMORPHOUS SEDIMENT,UR RARE AMOR URATES /LPF; BACTERIA,URINE TRACE /HPF; WBC,URINE 0-2 /HPF
== END ==
LOC: RAD 14:27
PROVIDERS: ATTEND Nurse Practitioner Family
DX: R26.89 Other abnormalities of gait and mobility (principal); R35.0 Frequency of micturition; R47.01 Aphasia
CPT/HCPCS: 36415; 70450; 80053; 81000; 85025; 85610

== ENCOUNTER → 2020-10-11 | Outpatient (CLI) | payer MEDICARE, OTHER ==
--- NOTE | 2020-10-11 16:36 | Diagnostic Imaging Report ---
EXAMINATION: Abdomen 1 view HISTORY: Renal stones COMPARISON: Radiograph 06/25/2020 FINDINGS: There is a moderate amount of gas and stool throughout the colon. Nonobstructive bowel gas pattern. There is a 1.5 cm radiopacity overlying the left pelvis. This is not present on the prior radiograph. There are multiple calcifications within the pelvis which appear unchanged, likely phleboliths. There is a 1.3 cm calculus overlying the right kidney which is unchanged. The lung bases are clear. Degenerative changes of the hips and spine. Osseous structures are otherwise intact. IMPRESSION: 1. A new 1.5 cm radiopacity overlying the left pelvis which could represent a ureteral calculus. This could be confirmed with a CT abdomen and pelvis with IV contrast. 2. Stable 1.3 cm right renal calculus. 3. Moderate stool burden without obstruction. Dictated by: Dictated on workstation # [id number]
== END ==
LOC: RAD 11:30
PROVIDERS: ATTEND Urology
DX: N20.0 Calculus of kidney (principal)
CPT/HCPCS: 74018

== ENCOUNTER → 2020-11-08 | Outpatient (CLI) | payer MEDICARE, OTHER ==
--- NOTE | 2020-11-08 11:48 | Diagnostic Imaging Report ---
PROCEDURE: CT abdomen and pelvis without contrast. TECHNIQUE: Multiple contiguous axial images were obtained through the abdomen and pelvis without the use of intravenous contrast. Auto Exposure Controls were utilized during the CT exam to meet ALARA standards for radiation dose reduction. INDICATION: Hematuria. COMPARISON: 05/09/2020. FINDINGS: The heart is unremarkable. The lung bases are clear. No evidence of obstructing calculi or hydronephrosis. Bilateral nonobstructing calculi are visualized with the largest in the mid right kidney measuring 1.1 cm and the largest in the mid left kidney measuring 0.4 cm. The urinary bladder is nondistended. No bladder calculi are present. The liver, spleen, pancreas, and adrenal glands have a normal appearance. There is recannulization of the umbilical vein with collateral vessels noted in the subcutaneous soft tissues of the ventral abdomen and within the pelvis. There is no pathologically enlarged mesenteric or retroperitoneal adenopathy. The bowel loops are nondilated. The appendix is visualized in the right lower quadrant and has a normal appearance. There is no free fluid or free air. No acute osseous abnormalities. There is calcified aortic and iliac atherosclerotic plaque without aneurysm. An IVC filter is in place. There is no free air, loculated collection, or adenopathy in the pelvis. IMPRESSION: 1. No evidence of obstructing calculi or hydronephrosis. Bilateral nonobstructing calculi are visualized and are similar to the prior exam. 2. Recannulization of the umbilical vein with collateral vessels in the superficial soft tissues of the abdomen and pelvis and within the pelvis itself. These findings are suggestive of portal venous hypertension. Recommend correlation with LFTs. Dictated by: Dictated on workstation # [id number]
--- NOTE | 2020-11-08 12:13 | Diagnostic Imaging Report ---
EXAMINATION: Supine abdomen at 11:18 AM. INDICATION: Gross hematuria. FINDINGS: The CT abdomen/pelvis exam performed prior to this study noted nonobstructive calculi involving both kidneys. This included a 1.1 cm calculus in the right kidney and a 0.4 cm calculus in the left kidney. Those calculi are again identified and do not seem to have changed significantly. The prior study also noted phleboliths in the pelvis. These are unchanged when compared to the prior exam as well. There is no mass or organomegaly appreciated. There is some gas in both the large and small bowel in a nonspecific fashion. There is no evidence for a bowel obstruction. There is no mass or organomegaly noted. The vena cava filter seen previously is again evident. The osseous structures are intact. IMPRESSION: 1. The nonobstructive calculi involving the kidneys seen previously are again evident and no different. There is still no evidence for a calculus along the expected paths of the ureters. 2. There is no acute abnormality of the abdomen or pelvis noted otherwise. Dictated by: Dictated on workstation # [id number]
== END ==
LOC: RAD 10:57
PROVIDERS: ATTEND Urology
DX: N20.0 Calculus of kidney (principal); Z87.442 Personal history of urinary calculi
CPT/HCPCS: 74018; 74176

== ENCOUNTER 2020-11-20 17:15 | Inpatient (IN) | payer MEDICARE, OTHER ==
[2020-11-20] VITALS (7 sets, daily range): BP systolic 118–144; BP diastolic 63–76
[~2020-11-20] VITALS: Ht 172 cm; Wt 107.8 kg
--- NOTE | 2020-11-20 17:22 | ED Neurological Problem ---
General Stated Complaint: STROKE Source: EMS History of Present Illness Date Seen by Provider: Nov 20, 2020 Time Seen by Provider: 17:15 Initial Comments This 85-year-old male present to the ER via [facility] for stroke like symptoms. EMS states that patient was found down on the ground in front of his garage. A neighbor reported driving by the patient's house and he was sitting outside on his porch, and 30 minutes later when they drove by he was seen laying on the ground. They called EMS at that time. Upon arrival patient is alert to person and place. He is unable to recall date and time. He is currently denying any physical complaints, but cannot recall the events prior to EMS. He was sent immediately to CT scan for possible stroke upon arrival. No family in residence. No family contacts provided. Allergies and Home Medications Allergies Coded Allergies: Sulfa (Sulfonamide Antibiotics) (Verified Allergy, Unknown, UNSURE OF REACTION, 06/12/20) Home Medications Atorvastatin Calcium 10 Mg Tablet, 10 MG PO HS, (Reported) Bupropion HCl 150 Mg Tablet.er, 150 MG PO TID, (Reported) Buspirone HCl 5 Mg Tablet, 5 MG PO DAILY, (Reported) Finasteride 5 Mg Tablet, 5 MG PO DAILY, (Reported) Furosemide 20 Mg Tablet, 20 MG PO DAILY, (Reported) Metoprolol Succinate 25 Mg Tab.er.24h, 25 MG PO DAILY, (Reported) Nitrofurantoin Monohyd/M-Cryst 100 Mg Capsule, 1 TAB PO BID WITH MEALS Prescribed by: ZACH CATHERINE on 06/12/20926 Potassium Chloride 10 Meq Tab.er.prt, 10 MEQ PO DAILY, (Reported) Tamsulosin HCl 0.4 Mg Cap, 0.4 MG PO DAILY, (Reported) Tamsulosin HCl 0.4 Mg Cap, 0.4 MG PO DAILY Prescribed by: ZACH CATHERINE on 06/12/20926 Tramadol HCl 50 Mg Tablet, 50 MG PO Q4H PRN for PAIN-MODERATE (5-7) Prescribed by: ZACH CATHERINE on 06/12/20926 Patient Home Medication List Home Medication List Reviewed: Yes Review of Systems Review of Systems Constitutional: no symptoms reported Eyes: No Symptoms Reported Ears, Nose, Mouth, Throat: no symptoms reported Respiratory: no symptoms reported Cardiovascular: no symptoms reported Gastrointestinal: no symptoms reported Genitourinary: no symptoms reported Musculoskeletal: no symptoms reported Skin: no symptoms reported Psychiatric/Neurological: No Symptoms Reported Endocrine: No Symptoms Reported Hematologic/Lymphatic: No Symptoms Reported Past Oskcqvz-Pshlue-Zljhxo Hx Patient Social History Former Smoker, Quit: May 14, 1971 2nd Hand Smoke Exposure: Yes Recent Hopitalizations: No Immunizations Up To Date Tetanus Booster (TDap): Less than 5yrs PED Vaccines UTD: No Date of Pneumonia Vaccine: Mar 18, 2020 Date of Influenza Vaccine: Mar 18, 2020 Seasonal Allergies Seasonal Allergies: No Past Medical History Surgeries: Yes (MITRAL VALVE REPLACEMENT, lithrotripsy) CABG, Tonsillectomy Respiratory: Yes Pulmonary Embolism Currently Using CPAP: No Currently Using BIPAP: No Cardiac: Yes (HX CABG) Atrial Fibrillation, Coronary Artery Disease, Deep Vein Thrombosis, High Cholesterol, Hypertension, Valvular Heart Disease Neurological: Yes TIA Sexually Transmitted Disease: No HIV/AIDS: No Genitourinary: Yes Prostate Problems, Kidney Stones Gastrointestinal: Yes Gastroesophageal Reflux, Chronic Constipation Musculoskeletal: No Endocrine: No HEENT: Yes (PARTIAL DENTURE) Cancer: No Psychosocial: Yes Depression Integumentary: No Blood Disorders: No Adverse Reaction/Blood Tranf: No (N/A) Physical Exam Vital Signs Vital Signs - First Documented 11/20/20 17:15 Temp 36.6 Pulse 99 Resp 18 B/P (MAP) 133/79 (97) Pulse Ox 93 O2 Delivery Nasal Cannula O2 Flow Rate 3.00 Capillary Refill : Height, Weight, BMI Height: '" Weight: lbs. oz. kg; 33.30 BMI Method: General Appearance: WD/WN, no apparent distress HEENT: PERRL/EOMI, normal ENT inspection, TMs normal, pharynx normal Neck: full range of motion, supple, normal inspection Respiratory: lungs clear, normal breath sounds, no respiratory distress Cardiovascular: normal peripheral pulses Gastrointestinal: normal bowel sounds, non tender, soft Extremities: normal range of motion, non-tender, normal inspection Neurologic/Psychiatric: manager store II-XII nml as tested, no motor/sensory deficits, alert, normal mood/affect; No oriented x 3 (person and place ), No aphasia, No facial droop; motor weakness (RLE); No sensory deficit Crainal Nerves: normal hearing, normal speech, PERRL; No facial asymmetry, No facial droop, No facial paresthesias, No facial weakness, No gaze palsy Coordination/Gait: normal finger to nose Motor/Sensory: no motor deficit, no sensory deficit, no pronator drift Skin: normal color, warm/dry Stroke NIH Stroke Scale Assessment Select: Initial Level of Consciousness: 0=Alert (0), Level of Consciousness- Questions: 0=Answers both month/age (0), LOC Commands: 0=Performs both tasks (0), Gaze: Normal (0), Visual Main: 0=No visual loss (0), Facial Movement (Facial Paresis): 0=Normal symmetrical mnt (0), Motor Function-Arms Right: 0=No drift (0), Motor Function-Arms Left: 0=No drift (0), Motor Function-Legs Right: 1=Drift (1), Motor Function-Legs Left: 0=No drift (0), Limb Ataxia: 0=Absent (0), Sensory: 0=Normal:no loss (0), Best Language: 0=No aphasia (0), Dysarthria: 0=Normal (0), Extinction & Inattention: 0=No abnormality (0), Total: 1 Stroke Thrombolytic Exclusion Age 18 or Over: Yes Acute intenal hemorrhage: No Oral Anticoagulants: Yes Focused Exam Lactate Level 11/20/20 19:51: Lactic Acid Level 1.47 Lactic Acid Level Laboratory Tests Test 11/20/20 19:51 Lactic Acid Level 1.47 MMOL/L (0.50-2.00) Progress/Results/Core Measures Results/Orders Lab Results Laboratory Tests Test 11/20/20 17:20 11/20/20 17:43 11/20/20 17:53 11/20/20 18:18 Range/Units White Blood Count 16.5 H 4.3-11.0 10^3/uL Red Blood Count 4.46 4.30-5.52 10^6/uL Hemoglobin 13.7 13.3-17.7 g/dL Hematocrit 41 40-54 % Mean Corpuscular Volume 92 80-99 fL Mean Corpuscular Hemoglobin 31 25-34 pg Mean Corpuscular Hemoglobin Concent 33 32-36 g/dL Red Cell Distribution Width 12.6 10.0-14.5 % Platelet Count 232 130-400 10^3/uL Mean Platelet Volume 11.1 9.0-12.2 fL Immature Granulocyte % (Auto) 1 % Neutrophils (%) (Auto) 74 42-75 % Lymphocytes (%) (Auto) 13 12-44 % Monocytes (%) (Auto) 11 0-12 % Eosinophils (%) (Auto) 2 0-10 % Basophils (%) (Auto) 1 0-10 % Neutrophils # (Auto) 12.3 H 1.8-7.8 10^3/uL Lymphocytes # (Auto) 2.1 1.0-4.0 10^3/uL Monocytes # (Auto) 1.8 H 0.0-1.0 10^3/uL Eosinophils # (Auto) 0.2 0.0-0.3 10^3/uL Basophils # (Auto) 0.1 0.0-0.1 10^3/uL Immature Granulocyte # (Auto) 0.1 0.0-0.1 10^3/uL Neutrophils % (Manual) 77 % Lymphocytes % (Manual) 15 % Monocytes % (Manual) 7 % Basophils % (Manual) 1 % Blood Morphology Comment NORMAL Sodium Level 140 135-145 MMOL/L Potassium Level 4.1 3.6-5.0 MMOL/L Chloride Level 101 98-107 MMOL/L Carbon Dioxide Level 22 21-32 MMOL/L Anion Gap 17 H 5-14 MMOL/L Blood Urea Nitrogen 15 7-18 MG/DL Creatinine 1.30 0.60-1.30 MG/DL Estimat Glomerular Filtration Rate 53 BUN/Creatinine Ratio 12 Glucose Level 120 H 70-105 MG/DL Calcium Level 9.8 8.5-10.1 MG/DL Corrected Calcium 9.5 8.5-10.1 MG/DL Total Bilirubin 0.7 0.1-1.0 MG/DL Aspartate Amino Transf (AST/SGOT) 26 5-34 U/L Alanine Aminotransferase (ALT/SGPT) 26 0-55 U/L Alkaline Phosphatase 67 40-136 U/L Total Creatine Kinase 141 30-200 U/L Myoglobin 103.2 H 10.0-92.0 NG/ML Troponin I < 0.028 <0.028 NG/ML Total Protein 8.0 6.4-8.2 GM/DL Albumin 4.4 3.2-4.5 GM/DL Glucometer 118 H 70-110 MG/DL Prothrombin Time 28.3 H 12.2-14.7 SEC INR Comment 2.6 H 0.8-1.4 Activated Partial Thromboplast Time 42 H 24-35 SEC D-Dimer <= 0.27 0.00-0.49 UG/ML Urine Color YELLOW Urine Clarity CLEAR Urine pH 7.0 5-9 Urine Specific [place] 1.015 L 1.016-1.022 Urine Protein TRACE H NEGATIVE Urine Glucose (UA) NEGATIVE NEGATIVE Urine Ketones NEGATIVE NEGATIVE Urine Nitrite NEGATIVE NEGATIVE Urine Bilirubin NEGATIVE NEGATIVE Urine Urobilinogen 2.0 < = 1.0 MG/DL Urine Leukocyte Esterase 2+ H NEGATIVE Urine RBC (Auto) 3+ H NEGATIVE Urine RBC 50-100 H /HPF Urine WBC >100 H /HPF Urine Squamous Epithelial Cells 0-2 /HPF Urine Crystals NONE /LPF Urine Bacteria TRACE /HPF Urine Casts PRESENT /LPF Urine Granular Casts RARE /LPF Urine Mucus NEGATIVE /LPF Urine Culture Indicated YES Test 11/20/20 19:51 Range/Units Lactic Acid Level 1.47 0.50-2.00 MMOL/L My Orders Orders - NILDA HALL STEM PROCESSING MACHINE OPERATOR Cbc With Automated Diff (11/20/20 17:18) Protime With Inr (11/20/20 17:18) Partial Thromboplastin Time (11/20/20 17:18) Comprehensive Metabolic Panel (11/20/20 17:18) Fibrin Degradation Products (11/20/20 17:18) Troponin I (11/20/20 17:18) Ua Culture If Indicated (11/20/20 17:18) Chest 1 View, Ap/Pa Only (11/20/20 17:18) Ekg Tracing (11/20/20 17:18) Accucheck Stat ONCE (11/20/20 17:18) Ed Iv/Invasive Line Start (11/20/20 17:18) Ed Iv/Invasive Line Start (11/20/20 17:18) Vital Signs Stroke Patient Q15M (11/20/20 17:18) Ct Head Wo-R/O Stroke (11/20/20 17:18) O2 (11/20/20 17:18) Intake & Output 06,14,22 (11/20/20 17:18) Monitor-Rhythm Ecg Trace Only (11/20/20 17:18) Dysphagia Screening Tool (11/20/20 17:18) Post Thrombolytic Adminstratio (11/20/20 17:18) Creatine Kinase (11/20/20 17:19) Myoglobin Serum (11/20/20 17:19) Manual Differential (11/20/20 17:20) Urine Culture (11/20/20 18:18) Vital Signs Stroke Patient Q15M (11/20/20 18:59) Dysphagia Screening Tool (11/20/20 18:59) Ct Angio Head/Neck (11/20/20 18:59) Iohexol Injection (Omnipaque 350 Mg/Ml 1 (11/20/20 19:15) Received Contrast (Hold Metformin- Contr (11/20/20 19:15) Ns (Ivpb) (Sodium Chloride 0.9% Ivpb Bag (11/20/20 19:15) Lactic Acid Analyzer (11/20/20 19:42) Ceftriaxone For Iv Use (Rocephin For I (11/20/20 19:45) Medications Given in ED Current Medications Medications Dose Ordered Sig/Le Route Start Time Stop Time Status Last Admin Dose Admin Ceftriaxone Sodium 1000 mg/ Sterile Water 10 ml @ 200 mls/hr ONCE ONCE IV 11/20/20 19:45 11/20/20 19:47 DC 11/20/20 19:52 200 MLS/HR Iohexol 100 ml ONCE ONCE IV 11/20/20 19:15 11/20/20 19:16 DC 11/20/20 19:21 75 ML Sodium Chloride 100 ml ONCE ONCE IV 11/20/20 19:15 11/20/20 19:16 DC 11/20/20 19:21 100 ML Vital Signs/I&O 11/20/20 11/20/20 17:15 17:44 Temp 36.6 Pulse 99 Resp 18 B/P (MAP) 133/79 (97) Pulse Ox 93 89 O2 Delivery Nasal Cannula Nasal Cannula O2 Flow Rate 3.00 3.00 Progress Progress Note : Progress Note Patient examined and in no acute distress. Upon arrival he had no focal or gross neurological deficits, however he does appear to have intermittent episodes of disorientation. After reviewing previous charts he is noted to have a history of Alzheimer's with sundowners. Unable to reach daughter via phone call. No other family or phone numbers provided. He is unable to recall phone numbers. His initial NIH score-1. EMS was able to go back to residence and obtain a medication list, he was noted to be taking Warfarin for history of A- fib. CT head, CTa head/neck reassuring, no acute pathology identified on CT's, no evidence of intracranial bleed or stroke. He is noted to have a UTI and WBC-1 6.5.. Discussed case with Dr. Bailey, accepted patient admission to cardiac step down unit. Given Rocephin 1gm IV in ED. Diagnostic Imaging Diagonstic Imaging: Xray Plain Films/CT/US/NM/MRI: chest Comments [facility] [place], [place] NAME: DELMY BASS MED REC#: [id number] PT STATUS: REG ER : 1935 PHYSICIAN: NILDA HALL STEM PROCESSING MACHINE OPERATOR ADMIT DATE: 11/20/20/ER Signed Date of Exam:11/20/20 CHEST 1 VIEW, AP/PA ONLY EXAMINATION: Chest 1 view. HISTORY: Stroke like symptoms COMPARISON: 05/09/2020. FINDINGS: There are coronary artery bypass graft markers. Median sternotomy wires are aligned. There is no edema or pneumonia. No pleural effusion or pneumothorax. Heart size is upper limits of normal. IMPRESSION: Clear lungs. Dictated by: Dictated on workstation # [id number] Dict: 11/20/20 175 Trans: 11/20/20 182 [facility] [id number] Interpreted by: MEGHANA SOMMER MD Electronically signed by: MEGHANA SOMMER MD 11/20/201819 Reviewed: Reviewed by Me Diagonstic Imaging: CT Plain Films/CT/US/NM/MRI: head Comments [facility] [place] [place] NAME: DELMY BASS MED REC#: [id number] PT STATUS: REG ER : 1935 PHYSICIAN: NILDA HALL APRN ADMIT DATE: 11/20/20/ER Signed Date of Exam:11/20/20 CT HEAD WO-R/O STROKE EXAMINATION: CT head without contrast. TECHNIQUE: Multiple contiguous axial images were obtained through the brain without the use of intravenous contrast. All CT scans use one or more of the following dose optimizing techniques: automated exposure control, MA and/or KvP adjustment based on patient size and exam type or iterative reconstruction. HISTORY: Neuro deficit. COMPARISON: None available. FINDINGS: The kirkpatrick-white matter differentiation is normal. No mass effect or midline shift. The ventricles are normal in size and configuration. Basilar cisterns are patent. There are no intra- or extra-axial fluid collections. There is no intracranial hemorrhage. The orbits are normal. Paranasal sinuses are normal. Mastoid air cells are clear. No soft tissue abnormality is seen. No osseous lesions or fractures are seen. IMPRESSION: 1. No acute intracranial abnormality. Dictated by: Dictated on workstation # [id number] Dict: 11/20/20 172 Trans: 11/20/201819 AS6 [id number] Interpreted by: MEGHANA SOMMER MD Electronically signed by: MEGHANA SOMMER MD 11/20/201819 Reviewed: Reviewed by Me Diagonstic Imaging: CT Plain Films/CT/US/NM/MRI: head Comments [facility] [place], [place] NAME: DELMY BASS [facility] REC#: [id number] PT STATUS: REG ER : 1935 PHYSICIAN: NILDA HALL APRN ADMIT DATE: 11/20/20/ER Signed Date of Exam:11/20/20 CT ANGIO HEAD/NECK EXAMINATION: CT angiography head and neck with and without contrast. TECHNIQUE: After intravenous administration of contrast, thin section axial CT angiography of the head and neck was performed. Source data was reformatted into 3D MIP projections. All CT scans use one or more of the following dose optimizing techniques: automated exposure control, MA and/or KvP adjustment based on patient size and exam type or iterative reconstruction. Any measurements of internal carotid artery stenosis are provided according to NASCET criteria. HISTORY: Possible stroke. COMPARISON: None available. FINDINGS: There is mild right and moderate left internal carotid artery stenosis proximally according to the NASCET criteria. Vertebral arteries are normal without stenosis. Intracranial internal carotid arteries are normal. The middle cerebral arteries are normal. The posterior cerebral arteries are normal. The anterior cerebral arteries are normal. There is no large vessel occlusion. No aneurysm or vascular malformation is seen. The kirkpatrick-white matter differentiation is normal. No mass effect or midline shift. The ventricles are normal in size and configuration. Basilar cisterns are patent. There are no intra-axial or extra-axial fluid collections. There is no intracranial hemorrhage. The orbits are normal. Paranasal sinuses are normal. Mastoid air cells are clear. No soft tissue abnormality is seen. No osseus lesions or fractures are seen. No lymphadenopathy is seen in the neck. The muscles of the neck are normal. Fascial planes are preserved and the deep spaces of the neck are normal. Limited views of the superior thorax are unremarkable. No osseous lesion or fracture is seen. IMPRESSION: 1. No large vessel occlusion. 2. Mild right and moderate left carotid bifurcation calcifications. Dictated by: Dictated on workstation # [id number] Dict: 11/20/201929 Trans: 11/20/201953 [facility] [id number] Interpreted by: MEGHANA SOMMER MD Electronically signed by: MEGHANA SOMMER MD 11/20/201953 Reviewed: Reviewed by Me Departure Impression Primary Impression: Urinary tract infection Additional Impression: Encephalopathy Disposition: ADMITTED INPATIENT Condition: Stable Admissions Decision to Admit Reason: Admit from ER (General) Decision to Admit/Date: Nov 20, 2020 Time/Decision to Admit Time: 20:00 Departure-Patient Inst. Referrals: MEGHANA AMOS MD (PCP/Family) Primary Care Physician NILDA HALL STEM PROCESSING MACHINE OPERATOR Nov 20, 2020 17:22
--- NOTE | 2020-11-20 17:32 | Diagnostic Imaging Report ---
EXAMINATION: CT head without contrast. TECHNIQUE: Multiple contiguous axial images were obtained through the brain without the use of intravenous contrast. All CT scans use one or more of the following dose optimizing techniques: automated exposure control, MA and/or KvP adjustment based on patient size and exam type or iterative reconstruction. HISTORY: Neuro deficit. COMPARISON: None available. FINDINGS: The kirkpatrick-white matter differentiation is normal. No mass effect or midline shift. The ventricles are normal in size and configuration. Basilar cisterns are patent. There are no intra- or extra-axial fluid collections. There is no intracranial hemorrhage. The orbits are normal. Paranasal sinuses are normal. Mastoid air cells are clear. No soft tissue abnormality is seen. No osseous lesions or fractures are seen. IMPRESSION: 1. No acute intracranial abnormality. Dictated by: Dictated on workstation # [id number]
[2020-11-20 17:33] LABS: BASOPHILS # (AUTO) 0.1 10^3/uL (0.0-0.1); BASOPHILS % (AUTO) 1 % (0-10); EOSINOPHILS # (AUTO) 0.2 10^3/uL (0.0-0.3); EOSINOPHILS % (AUTO) 2 % (0-10); HEMATOCRIT 41 % (40-54); HEMOGLOBIN 13.7 g/dL (13.3-17.7); LYMPHOCYTES # (AUTO) 2.1 10^3/uL (1.0-4.0); LYMPHOCYTES % (AUTO) 13 % (12-44); MEAN CORPUSCULAR HEMOGLOBIN 31 pg (25-34); MEAN CORPUSCULAR HGB CONC 33 g/dL (32-36); MEAN CORPUSCULAR VOLUME 92 fL (80-99); MEAN PLATELET VOLUME 11.1 fL (9.0-12.2); MONOCYTES # (AUTO) 1.8 10^3/uL (0.0-1.0); MONOCYTES % (AUTO) 11 % (0-12); NEUTROPHILS # (AUTO) 12.3 10^3/uL (1.8-7.8); NEUTROPHILS % (AUTO) 74 % (42-75); PLATELET COUNT 232 10^3/uL (130-400); WHITE BLOOD COUNT 16.5 10^3/uL (4.3-11.0)
[2020-11-20] MEDS ORDERED: NS IV 1000 ML 1,000 ML ONE (17:37)
[2020-11-20 17:53] LABS: ALBUMIN 4.4 GM/DL (3.2-4.5); CHLORIDE 101 MMOL/L (98-107); POTASSIUM 4.1 MMOL/L (3.6-5.0); SODIUM 140 MMOL/L (135-145)
--- NOTE | 2020-11-20 17:53 | Diagnostic Imaging Report ---
EXAMINATION: Chest 1 view. HISTORY: Stroke like symptoms COMPARISON: 05/09/2020. FINDINGS: There are coronary artery bypass graft markers. Median sternotomy wires are aligned. There is no edema or pneumonia. No pleural effusion or pneumothorax. Heart size is upper limits of normal. IMPRESSION: Clear lungs. Dictated by: Dictated on workstation # [id number]
[2020-11-20 17:54] LABS: CALCIUM 9.8 MG/DL (8.5-10.1)
[2020-11-20 17:55] LABS: GLUCOSE 120 MG/DL (70-105)
[2020-11-20 17:57] LABS: BASOPHILS % (MANUAL) 1 %; BILIRUBIN,TOTAL 0.7 MG/DL (0.1-1.0); CARBON DIOXIDE 22 MMOL/L (21-32); LYMPHOCYTES % (MANUAL) 15 %; MONOCYTES % (MANUAL) 7 %; NEUTROPHILS % (MANUAL) 77 %
[2020-11-20 17:58] LABS: RBC MORPH NORMAL
[2020-11-20 17:59] LABS: ALKALINE PHOSPHATASE 67 U/L (40-136); GFR ESTIMATED 53
[2020-11-20 18:00] LABS: BUN/CREATININE RATIO 12
[2020-11-20 18:02] LABS: ALANINE AMINOTRANSFERASE 26 U/L (0-55); CREATINE KINASE 141 U/L (30-200)
[2020-11-20] MEDS ORDERED: NS IV 1000 ML 1,000 ML IV SCH (18:15)
[2020-11-20 18:27] LABS: BILIRUBIN,URINE NEGATIVE (NEGATIVE); CLARITY,URINE CLEAR; COLOR,URINE YELLOW; GLUCOSE, URINE (UA) NEGATIVE (NEGATIVE); KETONES,URINE NEGATIVE (NEGATIVE); LEUKOCYTE ESTERASE ,URINE 2+ (NEGATIVE); NITRITE,URINE NEGATIVE (NEGATIVE); PROTEIN,URINE TRACE (NEGATIVE)
[2020-11-20 18:28] LABS: FIBRIN DEGRADATION PRODUCTS <= 0.27 UG/ML (0.00-0.49); INR 2.6 (0.8-1.4); PARTIAL THROMBOPLASTIN TIME 42 SEC (24-35); PROTHROMBIN TIME PATIENT 28.3 SEC (12.2-14.7)
[2020-11-20 18:34] LABS: BACTERIA,URINE TRACE /HPF; RBC,URINE 50-100 /HPF; SQUAMOUS EPITHELIAL CELL,UR 0-2 /HPF; WBC,URINE >100 /HPF
[2020-11-20 18:35] LABS: GRANULAR CASTS,URINE RARE /LPF
[2020-11-20] MEDS ORDERED: HOLD METFORMIN - RECEIVED CONTRAST 20 ML VIAL IV SCH (19:15)
[2020-11-20] MEDS ORDERED: NS 100 ML (IVPB) BAG IV ONE (19:15)
[2020-11-20] MEDS ORDERED: IOHEXOL 350 MG/ML 100 ML (OMNIPAQUE 350) VIAL IV ONE (19:15)
--- NOTE | 2020-11-20 19:43 | Diagnostic Imaging Report ---
EXAMINATION: CT angiography head and neck with and without contrast. TECHNIQUE: After intravenous administration of contrast, thin section axial CT angiography of the head and neck was performed. Source data was reformatted into 3D MIP projections. All CT scans use one or more of the following dose optimizing techniques: automated exposure control, MA and/or KvP adjustment based on patient size and exam type or iterative reconstruction. Any measurements of internal carotid artery stenosis are provided according to NASCET criteria. HISTORY: Possible stroke. COMPARISON: None available. FINDINGS: There is mild right and moderate left internal carotid artery stenosis proximally according to the NASCET criteria. Vertebral arteries are normal without stenosis. Intracranial internal carotid arteries are normal. The middle cerebral arteries are normal. The posterior cerebral arteries are normal. The anterior cerebral arteries are normal. There is no large vessel occlusion. No aneurysm or vascular malformation is seen. The kirkpatrick-white matter differentiation is normal. No mass effect or midline shift. The ventricles are normal in size and configuration. Basilar cisterns are patent. There are no intra-axial or extra-axial fluid collections. There is no intracranial hemorrhage. The orbits are normal. Paranasal sinuses are normal. Mastoid air cells are clear. No soft tissue abnormality is seen. No osseus lesions or fractures are seen. No lymphadenopathy is seen in the neck. The muscles of the neck are normal. Fascial planes are preserved and the deep spaces of the neck are normal. Limited views of the superior thorax are unremarkable. No osseous lesion or fracture is seen. IMPRESSION: 1. No large vessel occlusion. 2. Mild right and moderate left carotid bifurcation calcifications. Dictated by: Dictated on workstation # [id number]
[2020-11-20] MEDS ORDERED: cefTRIAXone 1,000 MG in WATER (STERILE) FOR INJECTION 10 ML IV ONE (19:45)
[2020-11-20] MEDS ORDERED: CALCIUM CARBONATE 500 MG (TUMS) TAB.CHEW PO PRN (21:45)
[2020-11-20] MEDS ORDERED: ONDANSETRON 4 MG/2 ML (SDV) Z0FRAN IVP PRN (21:45)
[2020-11-20] MEDS ORDERED: LOPERAMIDE 2 MG (IMODIUM) TABLET PO PRN (21:45)
[2020-11-20] MEDS ORDERED: diphenhydrAMINE 25 MG TAB (BENADRYL) PO PRN (21:45)
[2020-11-20] MEDS ORDERED: HYDROcodone/APAP 5 MG/325 MG (LORTAB) TAB PO PRN (21:45)
[2020-11-20] MEDS ORDERED: DOCUSATE SODIUM 100 MG (COLACE) CAP PO PRN (21:45)
[2020-11-20] MEDS ORDERED: ACETAMINOPHEN 500 MG TAB (TYLENOL) PO PRN (21:45)
[2020-11-20] MEDS ORDERED: HALOPERIDOL 5 MG/ML (HALDOL) VIAL IM PRN (21:45)
[2020-11-20] MEDS ORDERED: morphine INJ 4 MG/ML 1 ML (VIAL/SYRINGE) IVP PRN (21:45)
[2020-11-20] MEDS ORDERED: ACETAMINOPHEN 325 MG TABLET PO PRN (22:00)
[2020-11-20] MEDS: NS IV 1000 ML 1,000 ML IV SCH (22:06)
[2020-11-20] MEDS ORDERED: RT-ALBUTEROL/IPRATROPIUM 3 ML (DUONEB) VIAL INH PRN (23:15)
[2020-11-21] VITALS (17 sets, daily range): BP systolic 113–144; BP diastolic 50–96
[2020-11-21] MEDS: MELATONIN 3 MG TABLET PO PRN ×2 (03:30→20:15)
[2020-11-21 04:18] LABS: BASOPHILS # (AUTO) 0.1 10^3/uL (0.0-0.1); BASOPHILS % (AUTO) 0 % (0-10); EOSINOPHILS # (AUTO) 0.1 10^3/uL (0.0-0.3); EOSINOPHILS % (AUTO) 1 % (0-10); HEMATOCRIT 38 % (40-54); HEMOGLOBIN 12.3 g/dL (13.3-17.7); LYMPHOCYTES # (AUTO) 1.8 10^3/uL (1.0-4.0); LYMPHOCYTES % (AUTO) 11 % (12-44); MEAN CORPUSCULAR HEMOGLOBIN 30 pg (25-34); MEAN CORPUSCULAR HGB CONC 32 g/dL (32-36); MEAN CORPUSCULAR VOLUME 94 fL (80-99); MEAN PLATELET VOLUME 11.8 fL (9.0-12.2); MONOCYTES # (AUTO) 1.9 10^3/uL (0.0-1.0); MONOCYTES % (AUTO) 12 % (0-12); NEUTROPHILS # (AUTO) 12.1 10^3/uL (1.8-7.8); NEUTROPHILS % (AUTO) 76 % (42-75); PLATELET COUNT 175 10^3/uL (130-400); WHITE BLOOD COUNT 15.9 10^3/uL (4.3-11.0)
[2020-11-21 04:22] LABS: INR 2.6 (0.8-1.4); PROTHROMBIN TIME PATIENT 27.8 SEC (12.2-14.7)
[2020-11-21 04:30] LABS: ALBUMIN 3.6 GM/DL (3.2-4.5); CHLORIDE 104 MMOL/L (98-107); POTASSIUM 3.8 MMOL/L (3.6-5.0); SODIUM 139 MMOL/L (135-145)
[2020-11-21 04:33] LABS: GLUCOSE 102 MG/DL (70-105); TOTAL PROTEIN 6.6 GM/DL (6.4-8.2)
[2020-11-21 04:34] LABS: BILIRUBIN,TOTAL 0.9 MG/DL (0.1-1.0); CARBON DIOXIDE 24 MMOL/L (21-32)
[2020-11-21 04:36] LABS: ALKALINE PHOSPHATASE 52 U/L (40-136); CREATININE SERUM 0.93 MG/DL (0.60-1.30); GFR ESTIMATED > 60
[2020-11-21 04:37] LABS: BUN/CREATININE RATIO 16
[2020-11-21 04:39] LABS: ALANINE AMINOTRANSFERASE 20 U/L (0-55)
[2020-11-21] MEDS: polyethylene glycoL POWDER 17 GM (MIRALAX) PACK PO SCH ×2 (09:00→20:15)
[2020-11-21] MEDS: SENNA W/DOCUSATE (SENOKOT S) TABLET PO SCH ×2 (09:00→20:15)
[2020-11-21] MEDS ORDERED: PARoxetine 20 MG (PAXIL) TAB PO NR (10:45)
--- NOTE | 2020-11-21 10:48 | History & Physical-Hospitalist ---
History of Present Illness HPI/Chief Complaint Craig Hopkins is an 85-year-old male with past medical history of hypertension, hyperlipidemia, atrial fibrillation on Coumadin, BPH, who presented with confusion. Was reportedly found to outside on his driveway by a neighbor. He does not remember what happened. He does have some underlying dementia. He says that he was feeling well. He denies any fevers or chills. He denies any chest pain or palpitations. He denies any shortness of breath or cough. He denies any abdominal pain, nausea, vomiting, or diarrhea. He denies any dysuria. He does report nocturia and urinary urgency. He had a cystoscopy just a couple days ago at Dr. Bass's office. Source: patient Exam Limitations: no limitations Date Seen 11/21/20 Time Seen by a Provider: 09:30 Attending Physician Joanne Caruso MD PCP Jonathan Begum MD Referring Physician Date of Admission Nov 20, 2020 at 20:15 Home Medications & Allergies Home Medications Reviewed patient Home Medication Reconciliation performed by pharmacy medication reconciliations medical administrative technician and/or nursing. Patients Allergies have been reviewed. Allergies Allergies Coded Allergies Sulfa (Sulfonamide Antibiotics) (Verified Allergy, Unknown, UNSURE OF REACTION, 06/12/20) Past Dffxbgs-Blingb-Wbutxu Hx Patient Social History Tobacco Use?: No Use of E-Cig and/or Vaping dev: No Substance use?: No Alcohol Use?: No Immunizations Up To Date Date of Influenza Vaccine: Mar 18, 2020 PED Vaccines UTD: No Date of Pneumonia Vaccine: Mar 18, 2020 Seasonal Allergies Seasonal Allergies: No Current Status Advance Directives: No Communicates: Verbally Primary Language: Singaporean Preferred Spoken Language: Singaporean Is interpretation needed?: No Implanted or Applied Medical D: Heart mechanical device, Stents Past Medical History Surgeries: CABG, Tonsillectomy Pulmonary Embolism Currently Using CPAP: No Currently Using BIPAP: No Atrial Fibrillation, Coronary Artery Disease, Deep Vein Thrombosis, High Cholesterol, Hypertension, Valvular Heart Disease TIA Sexually Transmitted Disease: No HIV/AIDS: No Prostate Problems, Kidney Stones Gastroesophageal Reflux, Chronic Constipation Depression Blood Disorders: No Adverse Reaction/Blood Tranf: No (N/A) Family Medical History No Pertinent Family Hx Review of Systems Constitutional: no symptoms reported EENTM: no symptoms reported Respiratory: no symptoms reported Cardiovascular: no symptoms reported Gastrointestinal: no symptoms reported Genitourinary: nocturia Musculoskeletal: no symptoms reported Skin: no symptoms reported Psychiatric/Neurological: No Symptoms Reported Physical Exam Physical Exam Vital Signs Vital Signs - First Documented 11/20/20 11/20/20 17:15 23:06 Temp 36.6 Pulse 99 Resp 18 B/P (MAP) 133/79 (97) Pulse Ox 93 O2 Delivery Nasal Cannula O2 Flow Rate 3.00 FiO2 24 Capillary Refill : Less Than 3 Seconds Height, Weight, BMI Height: '" Weight: lbs. oz. kg; 36.43 BMI Method: General Appearance: No Apparent Distress, Obese HEENT: PERRL/EOMI, Pharynx Normal Neck: Normal Inspection, Supple Respiratory: Lungs Clear, Normal Breath Sounds, No Respiratory Distress Cardiovascular: Regular Rate, Rhythm, No Edema, No Murmur Gastrointestinal: Normal Bowel Sounds, Non Tender, Soft Extremity: Normal Inspection, Non Tender, Pedal Edema Neurologic/Psychiatric: Alert, No Motor/Sensory Deficits, Disoriented Skin: Normal Color, Warm/Dry Lymphatic: No Adenopathy Results Results/Procedures Labs Laboratory Tests 11/20/20 17:20 11/21/20 03:25 Patient resulted labs reviewed. Imaging: Reviewed Imaging Report Assessment/Plan Admission Diagnosis Acute encephalopathy due to UTI associated with BPH and recent cystoscopy Admission Status: Inpatient Order (span 2 midnights) Reason for Inpatient Admission: UTI requiring IV antibiotics Assessment and Plan UTI BPH s/p cystoscopy Acute encephalopathy Dementia Underwent cystoscopy with Dr. Bass on Wednesday UA consistent with UTI Started on Rocephin Urine culture pending, gram negative ren, await finalization Confusion improving, likely acute on chronic due to dementia/UTI AFib on coumadin Continue Toprol and Coumadin Monitor INR, therapeutic 2.6 this am HTN HLD Continue home meds Obesity Clinically significant, no acute management needs DVT prophylaxis: already receiving therapeutic anticoagulation Diagnosis/Problems Diagnosis/Problems (1) Urinary tract infection Status: Acute Qualifiers: Urinary tract infection type: acute cystitis Hematuria presence: with hematuria Qualified Codes: N30.01 - Acute cystitis with hematuria (2) BPH (benign prostatic hyperplasia) Status: Acute Qualifiers: Lower urinary tract symptom presence: symptoms present Lower urinary tract symptom detail: nocturia Qualified Codes: N40.1 - Benign prostatic hyperplasia with lower urinary tract symptoms; R35.1 - Nocturia (3) S/P cystoscopy Status: Acute (4) Acute encephalopathy Status: Acute (5) Dementia Status: Chronic (6) Afib Status: Chronic (7) On Coumadin for atrial fibrillation Status: Chronic (8) HTN (hypertension) Status: Chronic Qualifiers: Hypertension type: essential hypertension Qualified Codes: I10 - Essential (primary) hypertension (9) HLD (hyperlipidemia) Status: Chronic (10) Obesity Status: Chronic JOANNE CARUSO MD Nov 21, 2020 10:48
[2020-11-21] MEDS: RT-ALBUTEROL/IPRATROPIUM 3 ML (DUONEB) VIAL INH SCH ×3 (11:35→19:23)
[2020-11-21] MEDS ORDERED: RT-ALBUTEROL/IPRATROPIUM 3 ML (DUONEB) VIAL INH PRN (13:00)
[2020-11-21] MEDS ORDERED: TRAM50TA3 PO (14:16)
[2020-11-21] MEDS ORDERED: WARF-48 PO ×2 (14:16)
[2020-11-21] MEDS ORDERED: TRZ50T PO (14:16)
[2020-11-21] MEDS ORDERED: PARO20TA5 PO (14:16)
[2020-11-21] MEDS ORDERED: HYDR-3781 PO (14:16)
[2020-11-21] MEDS ORDERED: CHOL100045 PO (14:17)
[2020-11-21] MEDS ORDERED: CYAN500T8 PO (14:17)
[2020-11-21] MEDS ORDERED: ASCO-262 PO (14:17)
[2020-11-21] MEDS ORDERED: MULT-1136 PO (14:17)
[2020-11-21] MEDS: NS IV 1000 ML 1,000 ML IV SCH (14:31)
[2020-11-21] MEDS: warFARin 10 MG (COUMADIN) TAB PO SCH (18:32)
[2020-11-21] MEDS: TAMSULOSIN 0.4 MG (FLOMAX) CAP PO SCH (18:32)
[2020-11-21] MEDS: cefTRIAXone 1,000 MG/SWFI 10 ML IV PUSH IV SCH ×2 (19:44)
[2020-11-21] MEDS: LORazepam INJ 2 MG/ML (ATIVAN) VIAL IVP PRN (21:52)
[2020-11-22] MEDS: hydrOXYzine (ATARAX) 10 MG TAB PO PRN (00:11)
[2020-11-22] MEDS: NS IV 1000 ML 1,000 ML IV SCH ×2 (03:06→04:22)
[2020-11-22 04:00] VITALS: BP 148/62
[2020-11-22] MEDS: LORazepam INJ 2 MG/ML (ATIVAN) VIAL IVP PRN (04:22)
[2020-11-22 05:48] LABS: BASOPHILS # (AUTO) 0.1 10^3/uL (0.0-0.1); BASOPHILS % (AUTO) 1 % (0-10); EOSINOPHILS # (AUTO) 0.2 10^3/uL (0.0-0.3); EOSINOPHILS % (AUTO) 1 % (0-10); HEMATOCRIT 37 % (40-54); LYMPHOCYTES # (AUTO) 1.6 10^3/uL (1.0-4.0); LYMPHOCYTES % (AUTO) 12 % (12-44); MEAN CORPUSCULAR HEMOGLOBIN 30 pg (25-34); MEAN CORPUSCULAR HGB CONC 32 g/dL (32-36); MEAN CORPUSCULAR VOLUME 94 fL (80-99); MEAN PLATELET VOLUME 11.1 fL (9.0-12.2); MONOCYTES # (AUTO) 1.3 10^3/uL (0.0-1.0); MONOCYTES % (AUTO) 10 % (0-12); NEUTROPHILS # (AUTO) 9.9 10^3/uL (1.8-7.8); NEUTROPHILS % (AUTO) 75 % (42-75); PLATELET COUNT 155 10^3/uL (130-400); WHITE BLOOD COUNT 13.2 10^3/uL (4.3-11.0)
[2020-11-22 05:56] LABS: INR 2.2 (0.8-1.4); PROTHROMBIN TIME PATIENT 24.9 SEC (12.2-14.7)
[2020-11-22 08:00] VITALS: BP 155/78
[2020-11-22] MEDS: SENNA W/DOCUSATE (SENOKOT S) TABLET PO SCH ×2 (08:24→20:10)
[2020-11-22] MEDS: polyethylene glycoL POWDER 17 GM (MIRALAX) PACK PO SCH ×2 (08:24→20:10)
[2020-11-22] MEDS: PARoxetine 20 MG (PAXIL) TAB PO SCH (08:29)
[2020-11-22] MEDS: RT-ALBUTEROL/IPRATROPIUM 3 ML (DUONEB) VIAL INH SCH ×4 (08:42→18:53)
--- NOTE | 2020-11-22 09:49 | Progress Note - Urology ---
Progress Note-Urology Progress Notes/Assess & Plan Progress/Assessment & Plan IMPROVING, OK TO DISCHARGE ALEXANDER. KEEP APPOINTMENT WITH ME IN MAY, PRN Final Diagnosis UTI SERA BOYD MD Nov 22, 2020 09:49
--- NOTE | 2020-11-22 11:25 | Discharge Summary ---
Discharge Summary Instructions for Patient Via [facility], Assessment/Instructions Take medications as prescribed. Complete your course of antibiotics even if you are feeling better. You are being set up with home health care. Follow-up with your primary care physician. Return with worsening symptoms. Physician to follow Patient: Shy Discharge Diet for Home: No Restrictions Hospital Course Date of Admission: Nov 20, 2020 at 20:15 Admission Diagnosis : Family Physician/Provider: Jonathan Begum MD Date of Discharge: 11/22/20 Discharge Diagnosis: [ ] Hospital Course: [ ] Labs and Pending Lab Test: Laboratory Tests 11/22/20 05:33: White Blood Count 13.2H, Red Blood Count 3.95L, Hemoglobin 12.0L, Hematocrit 37L , Mean Corpuscular Volume 94, Mean Corpuscular Hemoglobin 30, Mean Corpuscular Hemoglobin Concent 32, Red Cell Distribution Width 13.0, Platelet Count 155, Mean Platelet Volume 11.1, Immature Granulocyte % (Auto) 1, Neutrophils (%) (Auto) 75, Lymphocytes (%) (Auto) 12, Monocytes (%) (Auto) 10, Eosinophils (%) (Auto) 1, Basophils (%) (Auto) 1, Neutrophils # (Auto) 9.9H, Lymphocytes # (Auto) 1.6, Monocytes # (Auto) 1.3H, Eosinophils # (Auto) 0.2, Basophils # (Auto) 0.1, Immature Granulocyte # (Auto) 0.1, Prothrombin Time 24.9H, INR Comment 2.2H Microbiology 11/20/20 Urine Culture - Preliminary, Resulted Gram Negative Raymond Home Meds Active Reported Multivitamin 1 Each Tablet 1 Each PO DAILY Vitamin B-12 (Cyanocobalamin (Vitamin B-12)) 500 Mcg Tablet 500 Mcg PO DAILY Vitamin D3 (Cholecalciferol (Vitamin D3)) 25 Mcg Tablet 25 Mcg PO DAILY Vitamin C (Ascorbate Calcium) 500 Mg Tablet 500 Mg PO DAILY Tramadol HCl 50 Mg Tablet 50 Mg PO BID PRN Trazodone HCl 50 Mg Tablet 50 Mg PO HS Paroxetine HCl 20 Mg Tablet 20 Mg PO DAILY Warfarin Sodium 5 Mg Tablet 10 Mg PO SUN,MO,,,FR TAKES AT 1700 TAKES 2 (5MG) TABS Warfarin Sodium 5 Mg Tablet 5 Mg PO WED,SAT TAKES AT 1700 Hydroxyzine Pamoate 25 Mg Capsule 25 Mg PO TID PRN Metoprolol Succinate 25 Mg Tab.er.24h 25 Mg PO DAILY Flomax (Tamsulosin HCl) 0.4 Mg Cap 0.4 Mg PO DAILY Atorvastatin Calcium 10 Mg Tablet 10 Mg PO HS Potassium Chloride 10 Meq Tab.er.prt 10 Meq PO DAILY Furosemide 20 Mg Tablet 20 Mg PO DAILY Finasteride 5 Mg Tablet 5 Mg PO DAILY Patient Allergies: Coded Allergies: Sulfa (Sulfonamide Antibiotics) (Verified Allergy, Unknown, UNSURE OF REACTION, 06/12/20) Home Health Need/Face to Face Date of Face to Face: Nov 22, 2020 Clinical Findings: Generalized weakness and fatigue, Muscle weakness I have seen Pt [id number]: Yes Discharged To: Home Diagnosis/Conditions: Dementia UTI Patient is Homebound due to: CognItive deficits, Muscle weakness Homebound Status Due to the above stated illness, injury or surgical procedure (medical condition or diagnosis) and associated clinical findings, the patient is homebound because of his/her inability to leave home except with aid of a supportive device and/or person AND leaving the home requires a considerable and taxing effort or is medically contraindicated. Pt req the following assistanc: Aid of another person Home Health Nursing Orders Home Health Services Order: Nursing Services, Photographic Equipment Assembler-Evaluate & Treat, Physical Therapy-Evaluate & Treat Home Health Infusion Therapy Line Start Date: Nov 21, 2020 Therapy Orders Therapy Orders: OT (must have SN or PT order), Physical Therapy Therapy Specific Orders: Eval assistive deivces, Teach strategies/cognitive deficits, Teach enviro modifications/safety, Gait training, Increase strength/endurance Certify Stmt I certify that this patient is under my care and that I, a nurse practitioner or a physician; a banking assistant working with me, had a face to face encounter that - meets the physician face to face encounter requirements with this patient as dated. Discharge Physical Exam General: Alert, Cooperative, No Acute Distress HEENT: Atraumatic, EOMI, Mucous Memb Moist/[place] Lungs: Clear to Auscultation, Normal Air Movement Heart: Regular Rate, Normal S1, Normal S2, No Murmurs Abdomen: Normal Bowel Sounds, Soft, No Tenderness Extremities: No Edema, No Tenderness/Swelling Skin: No Rashes, No Significant Lesion Neuro: Normal Speech, Strength at 5/5 X4 Ext Psych/Mental Status: Mental Status NL, Mood NL JOANNE CARUSO MD Nov 22, 2020 11:23
--- NOTE | 2020-11-22 11:46 | Progress Note - Hospitalist ---
Subjective HPI/CC On Admission Date Seen by Provider: Nov 22, 2020 Time Seen by Provider: 09:15 Craig Hopkins is an 85-year-old male with past medical history of hypertension, hyperlipidemia, atrial fibrillation on Coumadin, BPH, who presented with confusion. Was reportedly found to outside on his driveway by a neighbor. He does not remember what happened. He does have some underlying dementia. He says that he was feeling well. He denies any fevers or chills. He denies any chest pain or palpitations. He denies any shortness of breath or cough. He denies any abdominal pain, nausea, vomiting, or diarrhea. He denies any dysuria. He does report nocturia and urinary urgency. He had a cystoscopy just a couple days ago at Dr. Bass's office. Subjective/Events-last exam He is feeling better. He remains confused. He denies fevers. He did not sleep very well last night. Focused Exam Lactate Level 11/20/20 19:51: Lactic Acid Level 1.47 Objective Exam Vital Signs Vital Signs Date Time Temp Pulse Resp B/P (MAP) Pulse Ox O2 Delivery O2 Flow Rate FiO2 11/22/20 08:44 93 Room Air 11/22/20 08:00 36.5 64 22 155/78 (103) 11/21/20 12:00 2.00 11/21/20 08:38 28 Capillary Refill : Less Than 3 Seconds General Appearance: No Apparent Distress, Obese Respiratory: Lungs Clear, Normal Breath Sounds, No Respiratory Distress Cardiovascular: Regular Rate, Rhythm, No Edema, No Murmur Gastrointestinal: Normal Bowel Sounds, Non Tender, Soft Extremity: Normal Inspection, Non Tender, No Pedal Edema Neurologic/Psychiatric: Alert, No Motor/Sensory Deficits, Normal Mood/Affect, Disoriented Skin: Normal Color, Warm/Dry Results/Procedures Lab Laboratory Tests 11/22/20 05:33 Patient resulted labs reviewed. Imaging: Reviewed Imaging Report Assessment/Plan Assessment and Plan Assess & Plan/Chief Complaint UTI BPH s/p cystoscopy Delirium Dementia Underwent cystoscopy with Dr. Bass on Wednesday UA consistent with UTI Continue Rocephin Urine culture pending, gram negative ren, await finalization Confusion improving, likely acute on chronic delirium due to underlying dementia/UTI AFib on coumadin Continue Toprol and Coumadin Monitor INR, therapeutic 2.2 this am HTN HLD Continue home meds Obesity Clinically significant, no acute management needs DVT prophylaxis: already receiving therapeutic anticoagulation Diagnosis/Problems Diagnosis/Problems (1) Urinary tract infection Status: Acute Qualifiers: Urinary tract infection type: acute cystitis Hematuria presence: with hematuria Qualified Codes: N30.01 - Acute cystitis with hematuria (2) BPH (benign prostatic hyperplasia) Status: Acute Qualifiers: Lower urinary tract symptom presence: symptoms present Lower urinary tract symptom detail: nocturia Qualified Codes: N40.1 - Benign prostatic hyperplasia with lower urinary tract symptoms; R35.1 - Nocturia (3) S/P cystoscopy Status: Acute (4) Acute encephalopathy Status: Acute (5) Dementia Status: Chronic (6) Afib Status: Chronic (7) On Coumadin for atrial fibrillation Status: Chronic (8) HTN (hypertension) Status: Chronic Qualifiers: Hypertension type: essential hypertension Qualified Codes: I10 - Essential (primary) hypertension (9) HLD (hyperlipidemia) Status: Chronic (10) Obesity Status: Chronic JOANNE CARUSO MD Nov 22, 2020 11:46
--- NOTE | 2020-11-22 12:53 | CONSULTATION REPORT ---
DATE OF SERVICE: 11/21/2020 ATTENDING PHYSICIAN: Dr. Hubbard. SUMMARY: An 85-year-old white man known to me with history of gross hematuria, BPH, and some infections, admitted through the emergency room with UTI and rule out stroke, started on Rocephin and responding well. IMPRESSION: Urinary tract infection. PLAN: Continue present management and follow up at the office as previously planned. Job ID: [id number] DocumentID: [id number] Dictated Date: 11/22/2020 09:55:38 Grain Buyer Date: 11/22/2020 12:53:26 Dictated By: SERA BOYD MD
[2020-11-22 15:26] VITALS: BP 127/57
[2020-11-22] MEDS: TAMSULOSIN 0.4 MG (FLOMAX) CAP PO SCH (17:57)
[2020-11-22] MEDS: warFARin 10 MG (COUMADIN) TAB PO SCH (17:57)
[2020-11-22] MEDS ORDERED: cefTRIAXone 1,000 MG VIAL ONE (19:54)
[2020-11-22] MEDS: cefTRIAXone 1,000 MG/SWFI 10 ML IV PUSH IV SCH ×2 (20:10)
[2020-11-22] MEDS ORDERED: ERTAPENEM (NON-FORMULARY) 1,000 MG in NS (IVPB) 50 ML IV ONE (21:15)
[2020-11-23] VITALS: BP 148/70
[2020-11-23] MEDS: hydrOXYzine (ATARAX) 10 MG TAB PO PRN ×2 (04:00→15:33)
[2020-11-23] MEDS: RT-ALBUTEROL/IPRATROPIUM 3 ML (DUONEB) VIAL INH SCH ×2 (06:55→19:52)
[2020-11-23 07:35] VITALS: BP 146/63
[2020-11-23 07:36] VITALS: BP 148/70
[2020-11-23] MEDS: SENNA W/DOCUSATE (SENOKOT S) TABLET PO SCH ×2 (09:04→21:09)
[2020-11-23] MEDS: polyethylene glycoL POWDER 17 GM (MIRALAX) PACK PO SCH ×2 (09:04→21:09)
[2020-11-23] MEDS: PARoxetine 20 MG (PAXIL) TAB PO SCH (09:06)
[2020-11-23] MEDS: ERTAPENEM (NON-FORMULARY) 1,000 MG in NS (IVPB) 50 ML IV SCH (09:06)
--- NOTE | 2020-11-23 11:49 | Progress Note - Hospitalist ---
Subjective HPI/CC On Admission Date Seen by Provider: Nov 23, 2020 Time Seen by Provider: 10:20 Craig Hopkins is an 85-year-old male with past medical history of hypertension, hyperlipidemia, atrial fibrillation on Coumadin, BPH, who presented with confusion. Was reportedly found to outside on his driveway by a neighbor. He does not remember what happened. He does have some underlying dementia. He says that he was feeling well. He denies any fevers or chills. He denies any chest pain or palpitations. He denies any shortness of breath or cough. He denies any abdominal pain, nausea, vomiting, or diarrhea. He denies any dysuria. He does report nocturia and urinary urgency. He had a cystoscopy just a couple days ago at Dr. Bass's office. Subjective/Events-last exam He is feeling about the same today. He remains confused. He has no complaints or concerns. Focused Exam Lactate Level 11/20/20 19:51: Lactic Acid Level 1.47 Objective Exam Vital Signs Vital Signs Date Time Temp Pulse Resp B/P (MAP) Pulse Ox O2 Delivery O2 Flow Rate FiO2 11/23/20 07:36 37.0 78 91 11/23/20 07:35 20 146/63 (90) Room Air 11/21/20 12:00 2.00 11/21/20 08:38 28 Capillary Refill : Less Than 3 Seconds General Appearance: No Apparent Distress, Obese Respiratory: Lungs Clear, Normal Breath Sounds, No Respiratory Distress Cardiovascular: Regular Rate, Rhythm, No Murmur Gastrointestinal: Normal Bowel Sounds, Non Tender, Soft Extremity: Normal Inspection, Non Tender, Pedal Edema Neurologic/Psychiatric: Alert, Disoriented Skin: Normal Color, Warm/Dry Results/Procedures Lab Patient resulted labs reviewed. Imaging: Reviewed Imaging Report Assessment/Plan Assessment and Plan Assess & Plan/Chief Complaint UTI BPH s/p cystoscopy Delirium Dementia Underwent cystoscopy with Dr. Bass on Wednesday UA consistent with UTI Urine culture revealed ESBL Morganella morganii, also Enterococcus faecalis awaiting susceptibilities Transitioned to Ertapenem Will require PICC for IV antibiotics at home AFib on coumadin Continue Toprol and Coumadin Monitor INR HTN HLD Continue home meds Obesity Clinically significant, no acute management needs DVT prophylaxis: already receiving therapeutic anticoagulation Diagnosis/Problems Diagnosis/Problems (1) ESBL (extended spectrum beta-lactamase) producing bacteria infection Status: Acute (2) Urinary tract infection Status: Acute Qualifiers: Urinary tract infection type: acute cystitis Hematuria presence: with hematuria Qualified Codes: N30.01 - Acute cystitis with hematuria (3) BPH (benign prostatic hyperplasia) Status: Acute Qualifiers: Lower urinary tract symptom presence: symptoms present Lower urinary tract symptom detail: nocturia Qualified Codes: N40.1 - Benign prostatic hyperplasia with lower urinary tract symptoms; R35.1 - Nocturia (4) S/P cystoscopy Status: Acute (5) Acute encephalopathy Status: Acute (6) Dementia Status: Chronic (7) Afib Status: Chronic (8) On Coumadin for atrial fibrillation Status: Chronic (9) HTN (hypertension) Status: Chronic Qualifiers: Hypertension type: essential hypertension Qualified Codes: I10 - Essential (primary) hypertension (10) HLD (hyperlipidemia) Status: Chronic (11) Obesity Status: Chronic JOANNE CARUSO MD Nov 23, 2020 11:49
[2020-11-23 15:18] VITALS: BP 151/71
[2020-11-23] MEDS: TAMSULOSIN 0.4 MG (FLOMAX) CAP PO SCH (16:58)
[2020-11-23] MEDS: warFARin 10 MG (COUMADIN) TAB PO SCH (16:58)
[2020-11-23] MEDS ORDERED: cefTRIAXone 2,000 MG in WATER (STERILE) FOR INJECTION 20 ML IV SCH (20:15)
[2020-11-24 04:48] LABS: BASOPHILS # (AUTO) 0.1 10^3/uL (0.0-0.1); BASOPHILS % (AUTO) 1 % (0-10); EOSINOPHILS # (AUTO) 0.2 10^3/uL (0.0-0.3); EOSINOPHILS % (AUTO) 2 % (0-10); HEMATOCRIT 36 % (40-54); HEMOGLOBIN 12.1 g/dL (13.3-17.7); LYMPHOCYTES # (AUTO) 1.4 10^3/uL (1.0-4.0); LYMPHOCYTES % (AUTO) 14 % (12-44); MEAN CORPUSCULAR HEMOGLOBIN 31 pg (25-34); MEAN CORPUSCULAR HGB CONC 33 g/dL (32-36); MEAN CORPUSCULAR VOLUME 92 fL (80-99); MEAN PLATELET VOLUME 11.4 fL (9.0-12.2); MONOCYTES # (AUTO) 1.4 10^3/uL (0.0-1.0); MONOCYTES % (AUTO) 13 % (0-12); NEUTROPHILS # (AUTO) 7.5 10^3/uL (1.8-7.8); NEUTROPHILS % (AUTO) 70 % (42-75); PLATELET COUNT 214 10^3/uL (130-400); WHITE BLOOD COUNT 10.7 10^3/uL (4.3-11.0)
[2020-11-24 05:02] LABS: INR 2.4 (0.8-1.4); PROTHROMBIN TIME PATIENT 26.1 SEC (12.2-14.7)
[2020-11-24 05:04] LABS: CHLORIDE 102 MMOL/L (98-107); POTASSIUM 3.6 MMOL/L (3.6-5.0); SODIUM 137 MMOL/L (135-145)
[2020-11-24 05:06] LABS: CALCIUM 9.1 MG/DL (8.5-10.1); GLUCOSE 90 MG/DL (70-105)
[2020-11-24 05:08] LABS: CARBON DIOXIDE 22 MMOL/L (21-32)
[2020-11-24 05:10] LABS: CREATININE SERUM 0.81 MG/DL (0.60-1.30); GFR ESTIMATED > 60
[2020-11-24 05:11] LABS: BUN/CREATININE RATIO 17
[2020-11-24] MEDS: RT-ALBUTEROL/IPRATROPIUM 3 ML (DUONEB) VIAL INH SCH ×2 (07:01→19:24)
[2020-11-24 07:45] VITALS: BP 138/69
[2020-11-24] MEDS: ERTAPENEM (NON-FORMULARY) 1,000 MG in NS (IVPB) 50 ML IV SCH (08:46)
[2020-11-24] MEDS: PARoxetine 20 MG (PAXIL) TAB PO SCH (08:47)
[2020-11-24] MEDS: polyethylene glycoL POWDER 17 GM (MIRALAX) PACK PO SCH ×2 (08:47→20:04)
[2020-11-24] MEDS: SENNA W/DOCUSATE (SENOKOT S) TABLET PO SCH ×2 (08:47→20:04)
--- NOTE | 2020-11-24 12:59 | Progress Note - Hospitalist ---
Subjective HPI/CC On Admission Date Seen by Provider: Nov 24, 2020 Time Seen by Provider: 09:00 Craig Hopkins is an 85-year-old male with past medical history of hypertension, hyperlipidemia, atrial fibrillation on Coumadin, BPH, who presented with confusion. Was reportedly found to outside on his driveway by a neighbor. He does not remember what happened. He does have some underlying dementia. He says that he was feeling well. He denies any fevers or chills. He denies any chest pain or palpitations. He denies any shortness of breath or cough. He denies any abdominal pain, nausea, vomiting, or diarrhea. He denies any dysuria. He does report nocturia and urinary urgency. He had a cystoscopy just a couple days ago at Dr. Bass's office. Subjective/Events-last exam He is feeling well today. He is making jokes. He denies any pain. He has no complaints or concerns. Objective Exam Vital Signs Vital Signs Date Time Temp Pulse Resp B/P (MAP) Pulse Ox O2 Delivery O2 Flow Rate FiO2 11/24/20 08:00 Room Air 11/24/20 07:45 36.6 92 20 138/69 (92) 93 11/21/20 12:00 2.00 11/21/20 08:38 28 Capillary Refill : Less Than 3 Seconds General Appearance: No Apparent Distress, Obese Respiratory: Lungs Clear, Normal Breath Sounds, No Respiratory Distress Cardiovascular: Regular Rate, Rhythm, No Murmur Gastrointestinal: Normal Bowel Sounds, Non Tender, Soft Extremity: Normal Inspection, Non Tender, Pedal Edema Neurologic/Psychiatric: Alert, No Motor/Sensory Deficits, Normal Mood/Affect, Disoriented Skin: Normal Color, Warm/Dry Results/Procedures Lab Laboratory Tests 11/24/20 04:20 Patient resulted labs reviewed. Imaging: Reviewed Imaging Report Assessment/Plan Assessment and Plan Assess & Plan/Chief Complaint ESBL UTI BPH s/p cystoscopy Delirium Dementia Underwent cystoscopy with Dr. Bass on Wednesday UA consistent with UTI Urine culture revealed ESBL Morganella morganii and Enterococcus faecalis Continue Ertapenem for ESBL Morganella morganii UTI Transition to Macrobid for pansusceptible Enterococcus faecalis UTI PICC line placement today Planning for discharge home with home health and continued IV antibiotics AFib on coumadin Continue Toprol and Coumadin INR HTN HLD Continue home meds Obesity Clinically significant, no acute management needs DVT prophylaxis: already receiving therapeutic anticoagulation Diagnosis/Problems Diagnosis/Problems (1) ESBL (extended spectrum beta-lactamase) producing bacteria infection Status: Acute (2) Urinary tract infection Status: Acute Qualifiers: Urinary tract infection type: acute cystitis Hematuria presence: with hematuria Qualified Codes: N30.01 - Acute cystitis with hematuria (3) BPH (benign prostatic hyperplasia) Status: Acute Qualifiers: Lower urinary tract symptom presence: symptoms present Lower urinary tract symptom detail: nocturia Qualified Codes: N40.1 - Benign prostatic hyperplasia with lower urinary tract symptoms; R35.1 - Nocturia (4) S/P cystoscopy Status: Acute (5) Acute encephalopathy Status: Acute (6) Dementia Status: Chronic (7) Afib Status: Chronic (8) On Coumadin for atrial fibrillation Status: Chronic (9) HTN (hypertension) Status: Chronic Qualifiers: Hypertension type: essential hypertension Qualified Codes: I10 - Essential (primary) hypertension (10) HLD (hyperlipidemia) Status: Chronic (11) Obesity Status: Chronic JOANNE CARUSO MD Nov 24, 2020 12:59
[2020-11-24] MEDS ORDERED: NITROFURANTOIN 100 MG (MACROBID) CAPSULE PO ONE (13:00)
[2020-11-24 16:04] VITALS: BP 137/64
[2020-11-24] MEDS: warFARin 10 MG (COUMADIN) TAB PO SCH (17:03)
[2020-11-24] MEDS: TAMSULOSIN 0.4 MG (FLOMAX) CAP PO SCH (17:03)
[2020-11-24] MEDS: NITROFURANTOIN 100 MG (MACROBID) CAPSULE PO SCH (20:04)
[2020-11-24] MEDS: MELATONIN 3 MG TABLET PO PRN (20:04)
[2020-11-24] MEDS: hydrOXYzine (ATARAX) 10 MG TAB PO PRN (21:11)
--- NOTE | 2020-11-24 21:58 | Diagnostic Imaging Report ---
INDICATION: PICC line placement. COMPARISON STUDY: Chest from November 20. FINDINGS: Frontal view of the chest demonstrates a PICC line with its tip in the mid SVC. 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 Lungs are clear. IMPRESSION: PICC line tip is in the SVC. Dictated by: Dictated on workstation # [id number]
[2020-11-24 23:28] VITALS: BP 141/75
[2020-11-25] MEDS: RT-ALBUTEROL/IPRATROPIUM 3 ML (DUONEB) VIAL INH SCH (06:58)
[2020-11-25 07:55] VITALS: BP 144/76
[2020-11-25] MEDS: polyethylene glycoL POWDER 17 GM (MIRALAX) PACK PO SCH (08:45)
[2020-11-25] MEDS: SENNA W/DOCUSATE (SENOKOT S) TABLET PO SCH (08:53)
[2020-11-25] MEDS: PARoxetine 20 MG (PAXIL) TAB PO SCH (08:53)
[2020-11-25] MEDS: NITROFURANTOIN 100 MG (MACROBID) CAPSULE PO SCH (08:53)
[2020-11-25] MEDS: ERTAPENEM (NON-FORMULARY) 1,000 MG in NS (IVPB) 50 ML IV SCH (08:56)
[2020-11-25] MEDS ORDERED: ERTA1VIA4 IJ (10:19)
[2020-11-25] MEDS ORDERED: NITR100C10 PO (11:21)
--- NOTE | 2020-11-25 11:24 | D/C HH Face to Face Order ---
D/C Face to Face Orders Instructions for Patient Via [facility], Patient Instructions/FollowUp: Please continue to take your medications as written. Please follow up with your primary care doctor to follow up this hospital stay. Physician to follow Patient: Dr Begum Discharge Diet for Home: Regular Diet Patient Data-Allergies,Ht & Wt Patient Allergies: Coded Allergies: Sulfa (Sulfonamide Antibiotics) (Verified Allergy, Unknown, UNSURE OF REACTION, 06/12/20) Home Health Need/Face to Face Date of Face to Face: Nov 22, 2020 Clinical Findings: Generalized weakness and fatigue, Muscle weakness I have seen Pt [id number]: Yes Discharged To: Home Diagnosis/Conditions: Dementia UTI Patient is Homebound due to: CognItive deficits, Muscle weakness Homebound Status Due to the above stated illness, injury or surgical procedure (medical condition or diagnosis) and associated clinical findings, the patient is homebound because of his/her inability to leave home except with aid of a supportive device and/or person AND leaving the home requires a considerable and taxing effort or is medically contraindicated. Pt req the following assistanc: Aid of another person Home Health Nursing Orders Home Health Services Order: Nursing Services, Physical Therapy-Evaluate & Treat Home Health Infusion Therapy Line Start Date: Nov 24, 2020 Therapy Orders Therapy Orders: Physical Therapy, PT to assess for OT Therapy Specific Orders: Eval assistive deivces, Teach enviro modifications/safety, Gait training, Increase strength/endurance Daily IV abx and PICC line education and care Certify Stmt I certify that this patient is under my care and that I, a nurse practitioner or a physician; a obstetric assistant working with me, had a face to face encounter that - meets the physician face to face encounter requirements with this patient as dated. SANTOS BRINK MD Nov 25, 2020 11:24
--- NOTE | 2020-11-25 11:28 | Discharge Summary ---
Diagnosis/Chief Complaint Date of Admission Nov 20, 2020 at 20:15 Date of Discharge Discharge Date: Nov 25, 2020 Admission Diagnosis Acute encephalopathy due to UTI associated with BPH and recent cystoscopy Primary Care Jonathan Begum MD Discharge Diagnosis (1) ESBL (extended spectrum beta-lactamase) producing bacteria infection Status: Acute (2) Urinary tract infection Status: Acute (3) BPH (benign prostatic hyperplasia) Status: Acute (4) S/P cystoscopy Status: Acute (5) Acute encephalopathy Status: Acute (6) Dementia Status: Chronic (7) Afib Status: Chronic (8) On Coumadin for atrial fibrillation Status: Chronic (9) HTN (hypertension) Status: Chronic (10) HLD (hyperlipidemia) Status: Chronic (11) Obesity Status: Chronic Discharge Summary Discharge Physical Exam Allergies: Coded Allergies: Sulfa (Sulfonamide Antibiotics) (Verified Allergy, Unknown, UNSURE OF REACTION, 06/12/20) Vitals & I&Os Vital Signs Date Time Temp Pulse Resp B/P (MAP) Pulse Ox O2 Delivery O2 Flow Rate FiO2 11/25/20 07:55 35.2 72 20 144/76 (98) 94 Room Air 11/21/20 12:00 2.00 11/21/20 08:38 28 Hospital Course Labs (last 24 hrs) Microbiology 11/20/20 Urine Culture - Final, Complete Morganella morganii Enterococcus faecalis Patient resulted labs reviewed. Imaging: Reviewed Imaging Report Discharge Home Medications: Active Scripts Active Nitrofurantoin [place]-Mcr 100 mg (Nitrofurantoin Monohyd/M-Cryst) 100 Mg Capsule 100 Mg PO BID Ertapenem (Ertapenem Sodium) 1 Gm Vial 1 Gm IJ DAILY Reported Multivitamin 1 Each Tablet 1 Each PO DAILY Vitamin B-12 (Cyanocobalamin (Vitamin B-12)) 500 Mcg Tablet 500 Mcg PO DAILY Vitamin D3 (Cholecalciferol (Vitamin D3)) 25 Mcg Tablet 25 Mcg PO DAILY Vitamin C (Ascorbate Calcium) 500 Mg Tablet 500 Mg PO DAILY Tramadol HCl 50 Mg Tablet 50 Mg PO BID PRN Trazodone HCl 50 Mg Tablet 50 Mg PO HS Paroxetine HCl 20 Mg Tablet 20 Mg PO DAILY Warfarin Sodium 5 Mg Tablet 10 Mg PO SUN,MO,,,FR TAKES AT 1700 TAKES 2 (5MG) TABS Warfarin Sodium 5 Mg Tablet 5 Mg PO WED,SAT TAKES AT 1700 Hydroxyzine Pamoate 25 Mg Capsule 25 Mg PO TID PRN Metoprolol Succinate 25 Mg Tab.er.24h 25 Mg PO DAILY Flomax (Tamsulosin HCl) 0.4 Mg Cap 0.4 Mg PO DAILY Atorvastatin Calcium 10 Mg Tablet 10 Mg PO HS Potassium Chloride 10 Meq Tab.er.prt 10 Meq PO DAILY Furosemide 20 Mg Tablet 20 Mg PO DAILY Finasteride 5 Mg Tablet 5 Mg PO DAILY Instructions to patient/family Please see electronic discharge instructions given to patient. Problem Qualifiers (1) Urinary tract infection: Urinary tract infection type: acute cystitis Hematuria presence: with h ematuria Qualified Codes: N30.01 - Acute cystitis with hematuria (2) BPH (benign prostatic hyperplasia): Lower urinary tract symptom presence: symptoms present Lower urinary tract symptom detail: nocturia Qualified Codes: N40.1 - Benign prostatic hyperplasia with lower urinary tract symptoms; R35.1 - Nocturia (3) HTN (hypertension): Hypertension type: essential hypertension Qualified Codes: I10 - Essential (primary) hypertension SANTOS BRINK MD Nov 25, 2020 11:28
== END 2020-11-25 14:45 | disposition home health service (06) | DRG 690 ==
LOC: EDUNIT# 17:17 → ER 17:18 → ICU 20:15 → 4TH 11-21 13:41
PROVIDERS: ADMIT Internal Medicine; ATTEND Internal Medicine
DX: N39.0 Urinary tract infection, site not specified (principal); G93.40 Encephalopathy, unspecified; Z16.12 Extended spectrum beta lactamase (ESBL) resistance; B95.2 Enterococcus as the cause of diseases classified elsewhere; B96.89 Other specified bacterial agents as the cause of diseases classified elsewhere; G30.9 Alzheimer's disease, unspecified; F02.80 Dementia in other diseases classified elsewhere, unspecified severity, without behavioral disturbance, psychotic disturbance, mood disturbance, and anxiety; R29.701 NIHSS score 1; N40.1 Benign prostatic hyperplasia with lower urinary tract symptoms; R35.1 Nocturia; R39.15 Urgency of urination; I10 Essential (primary) hypertension; E78.00 Pure hypercholesterolemia, unspecified; E78.5 Hyperlipidemia, unspecified; I48.91 Unspecified atrial fibrillation; I25.10 Atherosclerotic heart disease of native coronary artery without angina pectoris; E66.9 Obesity, unspecified; K21.9 Gastro-esophageal reflux disease without esophagitis; F32.9 Major depressive disorder, single episode, unspecified; Z79.01 Long term (current) use of anticoagulants; Z68.36 Body mass index [BMI] 36.0-36.9, adult; Z86.711 Personal history of pulmonary embolism; Z86.718 Personal history of other venous thrombosis and embolism; Z95.1 Presence of aortocoronary bypass graft; Z95.2 Presence of prosthetic heart valve; Z87.891 Personal history of nicotine dependence; Z86.73 Personal history of transient ischemic attack (TIA), and cerebral infarction without residual deficits; Z88.2 Allergy status to sulfonamides
CPT/HCPCS: 36415; 70450; 70496; 70498; 71045; 80048; 80053; 81000; 82550; 82947; 83605; 83874; 84484; 85007; 85025; 85027; 85379; 85610; 85730; 87077; 87088; 87186; 93005; 93041; 94640; 94760

== ENCOUNTER 2021-02-05 14:39 | Emergency (ER) | payer MEDICARE, OTHER ==
[~2021-02-05] VITALS: Ht 177.8 cm; Wt 106.6 kg
[~2021-02-05 14:39] MED LIST changes: +ASCO-262 PO; +CHOL100045 PO; +CYAN500T8 PO; +ERTA1VIA4 IJ; +HYDR-3781 PO; +MULT-1136 PO; +NITR100C10 PO; +PARO20TA5 PO; +TRAM50TA3 PO; +TRZ50T PO
--- NOTE | 2021-02-05 15:01 | ED Neurological Problem ---
General Chief Complaint: Neuro-Stroke Like Symptoms Stated Complaint: STROKE LIKE SYMPTOMS Source: patient, family Exam Limitations: no limitations History of Present Illness Date Seen by Provider: Feb 05, 2021 Time Seen by Provider: 14:45 Initial Comments Patient is an 85-year-old male who presents by private car with his daughter wi th a chief complaint of concern for stroke. Patient relates that yesterday he had about a 15 or 20-minute episode he thinks of difficulty getting his words out. He denies any unilateral numbness, weakness or tingling. No visual problems. No headache. 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 He denies any recent fevers, chills, cough or congestion. No Covid related concerns, he is vaccinated having had Moderna in August and September. No SOB. Patient denies any problems currently with balance or coordination. He denies any problems currently with speech difficulties. He states 3 or 4 years ago he had similar symptoms, 3 or 4 episodes where he had "TIAs". His daughter states that she feels like he still looks a little weak and his eyes do not look normal to her. No history of recent falls or trauma. NIH at presentation is 0. All other review of systems reviewed and negative except as stated. Associated Symptoms: slurred speech (difficulty with getting words out) Allergies and Home Medications Allergies Coded Allergies: Sulfa (Sulfonamide Antibiotics) (Verified Allergy, Unknown, UNSURE OF REACTION, 06/12/20) Home Medications Ascorbate Calcium 500 Mg Tablet, 500 MG PO DAILY, (Reported) Atorvastatin Calcium 10 Mg Tablet, 10 MG PO HS, (Reported) Cholecalciferol (Vitamin D3) 25 Mcg Tablet, 25 MCG PO DAILY, (Reported) Cyanocobalamin (Vitamin B-12) 500 Mcg Tablet, 500 MCG PO DAILY, (Reported) Ertapenem Sodium 1 Gm Vial, 1 GM IJ DAILY Prescribed by: SANTOS BRINK on 11/25/20 1019 Finasteride 5 Mg Tablet, 5 MG PO DAILY, (Reported) Furosemide 20 Mg Tablet, 20 MG PO DAILY, (Reported) Hydroxyzine Pamoate 25 Mg Capsule, 25 MG PO TID PRN for ANXIETY, (Reported) Metoprolol Succinate 25 Mg Tab.er.24h, 25 MG PO DAILY, (Reported) Multivitamin 1 Each Tablet, 1 EACH PO DAILY, (Reported) Nitrofurantoin Monohyd/M-Cryst 100 Mg Capsule, 100 MG PO BID Prescribed by: SANTOS BRINK on 11/25/20 1121 Paroxetine HCl 20 Mg Tablet, 20 MG PO DAILY, (Reported) Potassium Chloride 10 Meq Tab.er.prt, 10 MEQ PO DAILY, (Reported) Tamsulosin HCl 0.4 Mg Cap, 0.4 MG PO DAILY, (Reported) Tramadol HCl 50 Mg Tablet, 50 MG PO BID PRN for PAIN-MODERATE (5-7), (Reported) Trazodone HCl 50 Mg Tablet, 50 MG PO HS, (Reported) Warfarin Sodium 5 Mg Tablet, 5 MG PO WED,WED, (Reported) TAKES AT 1700 Warfarin Sodium 5 Mg Tablet, 10 MG PO WED,,,,, (Reported) TAKES AT 1700 TAKES 2 (5MG) TABS Patient Home Medication List Home Medication List Reviewed: Yes Review of Systems Review of Systems Constitutional: see HPI Eyes: No Symptoms Reported Ears, Nose, Mouth, Throat: no symptoms reported Respiratory: no symptoms reported Gastrointestinal: no symptoms reported Genitourinary: no symptoms reported Musculoskeletal: no symptoms reported Skin: no symptoms reported Psychiatric/Neurological: Denies Headache; Other (difficulty with word finding yesterday) All Other Systems Reviewed Negative Unless Noted: Yes Past Ppoypef-Tbwtth-Nojbbr Hx Patient Social History Tobacco Use?: No Smoking Status: Never a Smoker Substance use?: No Alcohol Use?: No Immunizations Up To Date Tetanus Booster (TDap): Less than 5yrs PED Vaccines UTD: No First/Initial COVID19 Vaccinat: AUGUST 2020 Second COVID19 Vaccination Demarco: OCTOBER 2020 Seasonal Allergies Seasonal Allergies: No Past Medical History Surgeries: Yes (MITRAL VALVE REPLACEMENT, lithrotripsy) CABG, Tonsillectomy Respiratory: Yes Pulmonary Embolism Currently Using CPAP: No Currently Using BIPAP: No Cardiac: Yes (HX CABG) Atrial Fibrillation, Coronary Artery Disease, Deep Vein Thrombosis, High Cholesterol, Hypertension, Valvular Heart Disease Neurological: Yes TIA Sexually Transmitted Disease: No HIV/AIDS: No Genitourinary: Yes Prostate Problems, Kidney Stones Gastrointestinal: Yes Gastroesophageal Reflux, Chronic Constipation Musculoskeletal: No Endocrine: No HEENT: Yes (PARTIAL DENTURE) Cancer: No Psychosocial: Yes Depression Integumentary: No Blood Disorders: No Adverse Reaction/Blood Tranf: No (N/A) Family Medical History No Pertinent Family Hx Physical Exam Vital Signs Vital Signs - First Documented 02/05/21 14:46 Temp 36.4 Pulse 71 Resp 18 B/P (MAP) 145/76 (99) O2 Delivery Room Air Capillary Refill : Height, Weight, BMI Height: '" Weight: lbs. oz. kg; 36.43 BMI Method: General Appearance: WD/WN, no apparent distress HEENT: PERRL/EOMI, normal ENT inspection, pharynx normal Neck: full range of motion Respiratory: lungs clear, normal breath sounds, no respiratory distress, no accessory muscle use Cardiovascular: regular rate, rhythm, other (2+ distal pulses) Gastrointestinal: normal bowel sounds, non tender, soft Extremities: normal range of motion, non-tender, normal inspection, no pedal edema Neurologic/Psychiatric: air bag curer II-XII nml as tested, no motor/sensory deficits, alert, normal mood/affect, oriented x 3 Crainal Nerves: normal hearing, normal speech, PERRL; No abnormal eye position, No abnormal speech, No facial asymmetry, No facial droop, No facial paresthesias, No facial weakness, No gaze palsy, No tongue deviation to R, No tongue deviation to L Coordination/Gait: normal finger to nose, normal gait Motor/Sensory: no motor deficit, no sensory deficit Skin: normal color, warm/dry Stroke NIH Stroke Scale Assessment Level of Consciousness: 0=Alert (0), Level of Consciousness-Questions: 0=Answers both month/age (0), LOC Commands: 0=Performs both tasks (0), Gaze: Normal (0), Visual Main: 0=No visual loss (0), Facial Movement (Facial Paresis): 0=Normal symmetrical mnt (0), Motor Function-Arms Right: 0=No drift (0), Motor Function-Arms Left: 0=No drift (0), Motor Function-Legs Right: 0=No drift (0), Motor Function-Legs Left: 0=No drift (0), Limb Ataxia: 0=Absent (0), Sensory: 0=Normal:no loss (0), Best Language: 0=No aphasia (0), Dysarthria: 0=Normal (0), Extinction & Inattention: 0=No abnormality (0), Total: Stroke Thrombolytic Exclusion Age 18 or Over: Yes Acute intenal hemorrhage: No Oral Anticoagulants: Yes Progress/Results/Core Measures Results/Orders Lab Results Laboratory Tests Test 02/05/21 14:45 02/05/21 14:51 Range/Units White Blood Count 9.0 4.3-11.0 10^3/uL Red Blood Count 4.63 4.30-5.52 10^6/uL Hemoglobin 14.1 13.3-17.7 g/dL Hematocrit 43 40-54 % Mean Corpuscular Volume 93 80-99 fL Mean Corpuscular Hemoglobin 31 25-34 pg Mean Corpuscular Hemoglobin Concent 33 32-36 g/dL Red Cell Distribution Width 13.5 10.0-14.5 % Platelet Count 217 130-400 10^3/uL Mean Platelet Volume 11.6 9.0-12.2 fL Immature Granulocyte % (Auto) 1 % Neutrophils (%) (Auto) 64 42-75 % Lymphocytes (%) (Auto) 19 12-44 % Monocytes (%) (Auto) 12 0-12 % Eosinophils (%) (Auto) 4 0-10 % Basophils (%) (Auto) 1 0-10 % Neutrophils # (Auto) 5.7 1.8-7.8 10^3/uL Lymphocytes # (Auto) 1.7 1.0-4.0 10^3/uL Monocytes # (Auto) 1.1 H 0.0-1.0 10^3/uL Eosinophils # (Auto) 0.3 0.0-0.3 10^3/uL Basophils # (Auto) 0.1 0.0-0.1 10^3/uL Immature Granulocyte # (Auto) 0.1 0.0-0.1 10^3/uL Prothrombin Time 27.2 H 12.2-14.7 SEC INR Comment 2.5 H 0.8-1.4 Activated Partial Thromboplast Time 41 H 24-35 SEC D-Dimer 0.23 0.00-0.49 UG/ML Sodium Level 141 135-145 MMOL/L Potassium Level 4.1 3.6-5.0 MMOL/L Chloride Level 105 98-107 MMOL/L Carbon Dioxide Level 27 21-32 MMOL/L Anion Gap 9 5-14 MMOL/L Blood Urea Nitrogen 18 7-18 MG/DL Creatinine 1.16 0.60-1.30 MG/DL Estimat Glomerular Filtration Rate 60 BUN/Creatinine Ratio 16 Glucose Level 106 H 70-105 MG/DL Calcium Level 9.6 8.5-10.1 MG/DL Corrected Calcium 9.6 8.5-10.1 MG/DL Total Bilirubin 0.4 0.1-1.0 MG/DL Aspartate Amino Transf (AST/SGOT) 22 5-34 U/L Alanine Aminotransferase (ALT/SGPT) 25 0-55 U/L Alkaline Phosphatase 79 40-136 U/L Troponin I < 0.028 <0.028 NG/ML Total Protein 7.5 6.4-8.2 GM/DL Albumin 4.0 3.2-4.5 GM/DL Glucometer 118 H 70-110 MG/DL My Orders Orders - ABBEY YUSUF MD Cbc With Automated Diff (02/05/21 14:54) Protime With Inr (02/05/21 14:54) Partial Thromboplastin Time (02/05/21 14:54) Comprehensive Metabolic Panel (02/05/21 14:54) Fibrin Degradation Products (02/05/21 14:54) Troponin I (02/05/21 14:54) Chest 1 View, Ap/Pa Only (02/05/21 14:54) Ekg Tracing (02/05/21 14:54) Nothing By Mouth (02/05/21 Lunch) Accucheck Stat ONCE (02/05/21 14:54) Ed Iv/Invasive Line Start (02/05/21 14:54) Ed Iv/Invasive Line Start (02/05/21 14:54) Vital Signs Stroke Patient Q15M (02/05/21 14:54) Ct Head Wo-R/O Stroke (02/05/21 14:54) O2 (02/05/21 14:54) Intake & Output 06,14,22 (02/05/21 14:54) Monitor-Rhythm Ecg Trace Only (02/05/21 14:54) Dysphagia Screening Tool (02/05/21 14:54) Post Thrombolytic Adminstratio (02/05/21 14:54) Lipid Panel (02/06/21 06:00) Vital Signs/I&O 02/05/21 14:46 Temp 36.4 Pulse 71 Resp 18 B/P (MAP) 145/76 (99) O2 Delivery Room Air Progress Progress Note : Time: 16:27 Progress Note Patient seen and evaluated for TIA complaint 24 hours ago. Evaluation today includes a stroke work-up of basic labs coagulation profile EKG chest x-ray and noncontrast CT head. All of his labs are unremarkable his INR is 2.5 which is perfect. Patient's vital signs have been stable he is in a normal sinus rhythm without ectopy or ST segment change. I discussed the findings and further plan of care with Dr. Shy Strickland's nurse practitioner. She states she will follow him up outpatient in clinic. We could not find any documentation of carotid ultrasounds for the last 3 years although the patient and his daughter both think that they were done by Dr. Burnette fairly recently. I instructed the daughter to follow-up with Dr. Burnette's office in order to find out when he last had his carotids ultrasounded. I expressed to them urgency if his symptoms return or worsen or he experiences any weakness of his extremities or headache. They verbalized understanding. They are both comfortable with the plan of care. All questions are sought and answered. Patient is stable for discharge. Initial ECG Impression Date: Feb 05, 2021 Initial ECG Impression Time: 14:55 Initial ECG Rate: 70 Initial ECG Rhythm: Normal Sinus Initial ECG Intervals: Normal Initial ECG Intervals [place] 141 QRS 101 QTC 435 Initial ECG Impression: Normal Diagnostic Imaging Diagonstic Imaging: Xray, CT Plain Films/CT/US/NM/MRI: chest, head Comments NAME: DELMY BASS MED REC#: [id number] PT STATUS: REG ER : 1935 PHYSICIAN: ABBEY YUSUF MD ADMIT DATE: 02/05/21/ER Draft Date of Exam:02/05/21 CT HEAD WO-R/O STROKE PROCEDURE: CT head wo r/o stroke. TECHNIQUE: Multiple contiguous axial images were obtained through the brain without the use of intravenous contrast. Auto Exposure Controls were utilized during the CT exam to meet ALARA standards for radiation dose reduction. INDICATION: Speech difficulty. COMPARISON: Correlation is made with prior head CT from 11/20/2020. FINDINGS: The ventricles and sulci remain appropriate for the patient's age. No sulcal effacement or midline shift is identified. No acute intra-axial or extra-axial hemorrhage is detected. Cisterns are patent. The visualized paranasal sinuses are clear. IMPRESSION: No acute intracranial process is detected. Dictated on workstation # [id number] Dict: 02/05/21 1505 Trans: 02/05/21 1509 [id number] Interpreted by: KIMMIE CHAVIRA MD Electronically signed by: Departure Impression Primary Impression: TIA (transient ischemic attack) Disposition: HOME, SELF-CARE Condition: Stable Departure-Patient Inst. Decision time for Depature: 16:24 Referrals: MEGHANA AMOS MD (PCP/Family) Primary Care Physician Patient Instructions: Transient Ischemic Attack (DC) Add. Discharge Instructions: Please continue your daily medications as prescribed. Follow-up with Dr. Burnette's office to find out when he last had ultrasounds of his carotid arteries done. Follow-up with Dr. Amos's office regarding the TIA today. Come back to the emergency room if he has any worsening symptoms or return of symptoms or new emergent complaints. ABBEY YUSUF MD Feb 05, 2021 15:01
--- NOTE | 2021-02-05 15:09 | Diagnostic Imaging Report ---
PROCEDURE: CT head wo r/o stroke. TECHNIQUE: Multiple contiguous axial images were obtained through the brain without the use of intravenous contrast. Auto Exposure Controls were utilized during the CT exam to meet ALARA standards for radiation dose reduction. INDICATION: Speech difficulty. COMPARISON: Correlation is made with prior head CT from 11/20/2020. FINDINGS: The ventricles and sulci remain appropriate for the patient's age. No sulcal effacement or midline shift is identified. No acute intra-axial or extra-axial hemorrhage is detected. Cisterns are patent. The visualized paranasal sinuses are clear. IMPRESSION: No acute intracranial process is detected. Dictated by: Dictated on workstation # [id number]
[2021-02-05 15:11] LABS: CHLORIDE 105 MMOL/L (98-107); POTASSIUM 4.1 MMOL/L (3.6-5.0); SODIUM 141 MMOL/L (135-145)
[2021-02-05 15:12] LABS: CALCIUM 9.6 MG/DL (8.5-10.1)
[2021-02-05 15:13] LABS: BASOPHILS # (AUTO) 0.1 10^3/uL (0.0-0.1); BASOPHILS % (AUTO) 1 % (0-10); EOSINOPHILS # (AUTO) 0.3 10^3/uL (0.0-0.3); EOSINOPHILS % (AUTO) 4 % (0-10); GLUCOSE 106 MG/DL (70-105); HEMATOCRIT 43 % (40-54); HEMOGLOBIN 14.1 g/dL (13.3-17.7); LYMPHOCYTES # (AUTO) 1.7 10^3/uL (1.0-4.0); LYMPHOCYTES % (AUTO) 19 % (12-44); MEAN CORPUSCULAR HEMOGLOBIN 31 pg (25-34); MEAN CORPUSCULAR HGB CONC 33 g/dL (32-36); MEAN CORPUSCULAR VOLUME 93 fL (80-99); MEAN PLATELET VOLUME 11.6 fL (9.0-12.2); MONOCYTES # (AUTO) 1.1 10^3/uL (0.0-1.0); MONOCYTES % (AUTO) 12 % (0-12); NEUTROPHILS # (AUTO) 5.7 10^3/uL (1.8-7.8); NEUTROPHILS % (AUTO) 64 % (42-75); PLATELET COUNT 217 10^3/uL (130-400); TOTAL PROTEIN 7.5 GM/DL (6.4-8.2)
[2021-02-05 15:14] LABS: CARBON DIOXIDE 27 MMOL/L (21-32)
[2021-02-05 15:15] LABS: BILIRUBIN,TOTAL 0.4 MG/DL (0.1-1.0)
[2021-02-05 15:17] LABS: ALKALINE PHOSPHATASE 79 U/L (40-136); CREATININE SERUM 1.16 MG/DL (0.60-1.30); GFR ESTIMATED 60
[2021-02-05 15:18] LABS: BUN/CREATININE RATIO 16
[2021-02-05 15:20] LABS: ALANINE AMINOTRANSFERASE 25 U/L (0-55)
--- NOTE | 2021-02-05 15:20 | Diagnostic Imaging Report ---
INDICATION: Transient ischemic attack and difficulty speaking. TIME OF EXAM: 3:00 PM. COMPARISON: 11/24/2020. FINDINGS: The heart size is stable. There are changes of median sternotomy and CABG. The lungs appear to be clear. No infiltrates are seen. There is no failure. No effusion or pneumothorax is identified. IMPRESSION: No acute cardiopulmonary process is detected. Dictated by: Dictated on workstation # [id number]
[2021-02-05 15:24] LABS: FIBRIN DEGRADATION PRODUCTS 0.23 UG/ML (0.00-0.49); INR 2.5 (0.8-1.4); PROTHROMBIN TIME PATIENT 27.2 SEC (12.2-14.7)
[2021-02-05 16:45] VITALS: BP 151/80
== END 2021-02-05 16:45 | disposition home or self-care (01) ==
LOC: EDUNIT# 14:39 → ER 14:41
DX: G45.9 Transient cerebral ischemic attack, unspecified (principal); I10 Essential (primary) hypertension; I48.91 Unspecified atrial fibrillation; E78.00 Pure hypercholesterolemia, unspecified; I25.10 Atherosclerotic heart disease of native coronary artery without angina pectoris; F32.9 Major depressive disorder, single episode, unspecified; Z86.711 Personal history of pulmonary embolism; Z86.718 Personal history of other venous thrombosis and embolism; Z79.01 Long term (current) use of anticoagulants; Z79.899 Other long term (current) drug therapy
CPT/HCPCS: 36415; 70450; 71045; 80053; 82947; 84484; 85025; 85379; 85610; 85730; 93005; 93041

== ENCOUNTER 2021-02-17 12:27 | Emergency (ER) | payer MEDICARE, OTHER ==
[~2021-02-17] VITALS: Ht 177.8 cm; Wt 104.3 kg
[2021-02-17 13:03] LABS: BILIRUBIN,URINE NEGATIVE (NEGATIVE); CLARITY,URINE CLEAR; COLOR,URINE YELLOW; GLUCOSE, URINE (UA) NEGATIVE (NEGATIVE); KETONES,URINE NEGATIVE (NEGATIVE); LEUKOCYTE ESTERASE ,URINE NEGATIVE (NEGATIVE); NITRITE,URINE NEGATIVE (NEGATIVE); PROTEIN,URINE NEGATIVE (NEGATIVE)
[2021-02-17 13:11] LABS: BACTERIA,URINE NEGATIVE /HPF; SQUAMOUS EPITHELIAL CELL,UR 0-2 /HPF
--- NOTE | 2021-02-17 13:30 | ED General ---
General Chief Complaint: Altered Mental Status Stated Complaint: AMS Nursing Triage Note: PT AMB TO RM 8 ALONGSIDE DAUGHTER. DAUGHTER REPORTS PT IS MORE CONFUSED THAN NORMAL, IS CONCERNED OF UTI. PT REPORTS COUGH X3 DAYS AND AN EPISODE OF DIARRHEA LAST NIGHT. PT DENIES ANY PAIN OR URINARY SYMPTOMS. A&OX4 AT THIS TIME. Source of Information: Patient Exam Limitations: No Limitations History of Present Illness Date Seen by Provider: Feb 17, 2021 Allergies and Home Medications Allergies Coded Allergies: Sulfa (Sulfonamide Antibiotics) (Verified Allergy, Unknown, UNSURE OF REACTION, 06/12/20) Patient Home Medication List Ascorbate Calcium (Vitamin C) 500 Mg Tablet, 500 MG PO DAILY, (Reported) Entered as Reported by: GEETHA MCCARTHY on 11/21/20 1417 Atorvastatin Calcium (Atorvastatin Calcium) 10 Mg Tablet, 10 MG PO HS, (Reported) Entered as Reported by: TERRY PEREZ on 05/15/20 0759 Cholecalciferol (Vitamin D3) (Vitamin D3) 25 Mcg Tablet, 25 MCG PO DAILY, (Reported) Entered as Reported by: GEETHA MCCARTHY on 11/21/20 1417 Cyanocobalamin (Vitamin B-12) (Vitamin B-12) 500 Mcg Tablet, 500 MCG PO DAILY, (Reported) Entered as Reported by: GEETHA MCCARTHY on 11/21/20 1417 Ertapenem Sodium (Ertapenem) 1 Gm Vial, 1 GM IJ DAILY Prescribed by: SANTOS BRINK on 11/25/20 1019 Finasteride (Finasteride) 5 Mg Tablet, 5 MG PO DAILY, (Reported) Entered as Reported by: TERRY PEREZ on 05/15/20 0759 Furosemide (Furosemide) 20 Mg Tablet, 20 MG PO DAILY, (Reported) Entered as Reported by: TERRY PEREZ on 05/15/20 0759 Hydroxyzine Pamoate (Hydroxyzine Pamoate) 25 Mg Capsule, 25 MG PO TID PRN for ANXIETY, (Reported) Entered as Reported by: GEETHA MCCARTHY on 11/21/20 1416 Metoprolol Succinate (Metoprolol Succinate) 25 Mg Tab.er.24h, 25 MG PO DAILY, (Reported) Entered as Reported by: MARLON LA on 06/11/20 1219 Multivitamin (Multivitamin) 1 Each Tablet, 1 EACH PO DAILY, (Reported) Entered as Reported by: GEETHA MCCARTHY on 11/21/20 1417 Nitrofurantoin Monohyd/M-Cryst (Nitrofurantoin [place]-Mcr 100 mg) 100 Mg Capsule, 100 MG PO BID Prescribed by: SANTOS BRINK on 11/25/20 1121 Paroxetine HCl (Paroxetine HCl) 20 Mg Tablet, 20 MG PO DAILY, (Reported) Entered as Reported by: GEETHA MCCARTHY on 11/21/20 1416 Potassium Chloride (Potassium Chloride) 10 Meq Tab.er.prt, 10 MEQ PO DAILY, (Reported) Entered as Reported by: TERRY PEREZ on 05/15/20 0759 Tamsulosin HCl (Flomax) 0.4 Mg Cap, 0.4 MG PO DAILY, (Reported) Entered as Reported by: MARLON LA on 06/11/20 1219 Tramadol HCl (Tramadol HCl) 50 Mg Tablet, 50 MG PO BID PRN for PAIN-MODERATE (5- 7), (Reported) Entered as Reported by: GEETHA MCCARTHY on 11/21/20 1416 Trazodone HCl (Trazodone HCl) 50 Mg Tablet, 50 MG PO HS, (Reported) Entered as Reported by: GEETHA MCCARTHY on 11/21/20 141 Warfarin Sodium (Warfarin Sodium) 5 Mg Tablet, 5 MG PO WED,WED, (Reported) Entered as Reported by: GEETHA MCCARTHY on 11/21/20 141 Warfarin Sodium (Warfarin Sodium) 5 Mg Tablet, 10 MG PO SUN,MO,,TH,FR, (Reported) Entered as Reported by: GEETHA MCCARTHY on 11/21/20 141 Past Movgdpp-Hymvtz-Eahjkh Hx Patient Social History Tobacco Use?: No Smoking Status: Never a Smoker Use of E-Cig and/or Vaping dev: No Substance use?: No Alcohol Use?: No Pt feels they are or have been: No Immunizations Up To Date Tetanus Booster (TDap): Less than 5yrs PED Vaccines UTD: No First/Initial COVID19 Vaccinat: 08/23/2011 Second COVID19 Vaccination Demarco: 09/24/2020 COVID19 Vaccine 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 Detailer: GREGOR Seasonal Allergies Seasonal Allergies: No Past Medical History Surgeries: Yes (MITRAL VALVE REPLACEMENT, lithrotripsy) CABG, Tonsillectomy Respiratory: Yes Pulmonary Embolism Currently Using CPAP: No Currently Using BIPAP: No Cardiac: Yes (HX CABG) Atrial Fibrillation, Coronary Artery Disease, Deep Vein Thrombosis, High Cholesterol, Hypertension, Valvular Heart Disease Neurological: Yes TIA Sexually Transmitted Disease: No HIV/AIDS: No Genitourinary: Yes Prostate Problems, Kidney Stones Gastrointestinal: Yes Gastroesophageal Reflux, Chronic Constipation Musculoskeletal: No Endocrine: No HEENT: Yes (PARTIAL DENTURE) Cancer: No Psychosocial: Yes Depression Integumentary: No Blood Disorders: No Adverse Reaction/Blood Tranf: No (N/A) Family Medical History No Pertinent Family Hx Physical Exam Vital Signs Vital Signs - First Documented 02/17/21 02/17/21 12:40 13:19 Temp 36.8 Pulse 81 Resp 18 B/P (MAP) 138/84 (102) Pulse Ox 94 O2 Delivery Room Air O2 Flow Rate 3.00 Capillary Refill : Less Than 3 Seconds Height, Weight, BMI Height: '" Weight: lbs. oz. kg; 32.00 BMI Method: Focused Exam Lactate Level 02/17/21 14:15: Lactic Acid Level 1.38 Lactic Acid Level Laboratory Tests Test 02/17/21 14:15 Lactic Acid Level 1.38 MMOL/L (0.50-2.00) Progress/Results/Core Measures Suspected Sepsis SIRS Temperature: Pulse: 81 Respiratory Rate: 18 Laboratory Tests 02/17/21 14:15: White Blood Count 6.3 Blood Pressure 138 /84 Mean: 102 02/17/21 14:15: Lactic Acid Level 1.38 Laboratory Tests 02/17/21 14:15: Creatinine 1.03, INR Comment 1.9H, Platelet Count 205, Total Bilirubin 0.8 Results/Orders Lab Results Laboratory Tests Test 02/17/21 12:50 02/17/21 12:53 02/17/21 14:15 02/17/21 14:36 Range/Units Urine Color YELLOW YELLOW Urine Clarity CLEAR CLEAR Urine pH 6.0 7.5 5-9 Urine Specific [place] 1.010 L 1.015 L 1.016-1.022 Urine Protein NEGATIVE NEGATIVE NEGATIVE Urine Glucose (UA) NEGATIVE NEGATIVE NEGATIVE Urine Ketones NEGATIVE NEGATIVE NEGATIVE Urine Nitrite NEGATIVE NEGATIVE NEGATIVE Urine Bilirubin NEGATIVE NEGATIVE NEGATIVE Urine Urobilinogen 0.2 0.2 < = 1.0 MG/DL Urine Leukocyte Esterase NEGATIVE NEGATIVE NEGATIVE Urine RBC (Auto) NEGATIVE NEGATIVE NEGATIVE Urine RBC NONE NONE /HPF Urine WBC NONE NONE /HPF Urine Squamous Epithelial Cells 0-2 NONE /HPF Urine Crystals NONE NONE /LPF Urine Bacteria NEGATIVE NEGATIVE /HPF Urine Casts NONE NONE /LPF Urine Mucus NEGATIVE NEGATIVE /LPF Urine Culture Indicated NO NO Influenza Type A (RT-PCR) Not Detected Not Detecte Influenza Type B (RT-PCR) Not Detected Not Detecte SARS-CoV-2 RNA (RT-PCR) Not Detected Not Detecte White Blood Count 6.3 4.3-11.0 10^3/uL Red Blood Count 4.74 4.30-5.52 10^6/uL Hemoglobin 14.2 13.3-17.7 g/dL Hematocrit 44 40-54 % Mean Corpuscular Volume 93 80-99 fL Mean Corpuscular Hemoglobin 30 25-34 pg Mean Corpuscular Hemoglobin Concent 32 32-36 g/dL Red Cell Distribution Width 13.6 10.0-14.5 % Platelet Count 205 130-400 10^3/uL Mean Platelet Volume 11.6 9.0-12.2 fL Immature Granulocyte % (Auto) 1 % Neutrophils (%) (Auto) 47 42-75 % Lymphocytes (%) (Auto) 24 12-44 % Monocytes (%) (Auto) 21 H 0-12 % Eosinophils (%) (Auto) 7 0-10 % Basophils (%) (Auto) 1 0-10 % Neutrophils # (Auto) 3.0 1.8-7.8 10^3/uL Lymphocytes # (Auto) 1.5 1.0-4.0 10^3/uL Monocytes # (Auto) 1.3 H 0.0-1.0 10^3/uL Eosinophils # (Auto) 0.5 H 0.0-0.3 10^3/uL Basophils # (Auto) 0.1 0.0-0.1 10^3/uL Immature Granulocyte # (Auto) 0.0 0.0-0.1 10^3/uL Neutrophils % (Manual) 55 % Lymphocytes % (Manual) 15 % Monocytes % (Manual) 25 % Eosinophils % (Manual) 5 % Blood Morphology Comment NORMAL Prothrombin Time 22.2 H 12.2-14.7 SEC INR Comment 1.9 H 0.8-1.4 Activated Partial Thromboplast Time 39 H 24-35 SEC D-Dimer 0.30 0.00-0.49 UG/ML Sodium Level 137 135-145 MMOL/L Potassium Level 3.9 3.6-5.0 MMOL/L Chloride Level 99 98-107 MMOL/L Carbon Dioxide Level 28 21-32 MMOL/L Anion Gap 10 5-14 MMOL/L Blood Urea Nitrogen 15 7-18 MG/DL Creatinine 1.03 0.60-1.30 MG/DL Estimat Glomerular Filtration Rate 69 BUN/Creatinine Ratio 15 Glucose Level 101 70-105 MG/DL Lactic Acid Level 1.38 0.50-2.00 MMOL/L Calcium Level 9.9 8.5-10.1 MG/DL Corrected Calcium 9.7 8.5-10.1 MG/DL Total Bilirubin 0.8 0.1-1.0 MG/DL Aspartate Amino Transf (AST/SGOT) 25 5-34 U/L Alanine Aminotransferase (ALT/SGPT) 21 0-55 U/L Alkaline Phosphatase 81 40-136 U/L Total Protein 8.1 6.4-8.2 GM/DL Albumin 4.3 3.2-4.5 GM/DL Urine Renal Epithelial Cells NONE /HPF My Orders Orders - NILDA HALL FILTER FILLER Ua Culture If Indicated (02/17/21 12:43) Covid 19 Inhouse Test (02/17/21 12:52) Influenza A And B By Pcr (02/17/21 12:52) Isolation Central Supply Req (02/17/21 12:52) Cbc With Automated Diff (02/17/21 13:33) Comprehensive Metabolic Panel (02/17/21 13:33) Blood Culture (02/17/21 13:33) Sputum Culture (02/17/21 13:33) Urinalysis (02/17/21 13:33) Urine Culture (02/17/21 13:33) Protime With Inr (02/17/21 13:33) Partial Thromboplastin Time (02/17/21 13:33) Chest 1 View, Ap/Pa Only (02/17/21 13:33) Ed Iv/Invasive Line Start (02/17/21 13:33) Vital Signs Adult Sepsis Patie Q15M (02/17/21 13:33) O2 (02/17/21 13:33) Remove Rings In Anticipation O (02/17/21 13:33) Lactic Acid Analyzer (02/17/21 13:33) Fibrin Degradation Products (02/17/21 13:33) Manual Differential (02/17/21 14:15) Vital Signs/I&O 02/17/21 02/17/21 02/17/21 12:40 12:40 13:19 Temp 36.8 Pulse 81 Resp 18 B/P (MAP) 138/84 (102) Pulse Ox 94 86 O2 Delivery Room Air Room Air Nasal Cannula O2 Flow Rate 3.00 Capillary Refill : Less Than 3 Seconds Blood Pressure Mean: 102 Departure Impression Primary Impression: Pneumonia Disposition: HOME, SELF-CARE Condition: Stable Departure-Patient Inst. Decision time for Depature: 15:48 Referrals: MEGHANA AMOS MD (PCP/Family) Primary Care Physician Patient Instructions: Pneumonia, Adult (DC) Add. Discharge Instructions: Plan: 1. Use incentive spirometer every 2 hours while awake. 2. Call [phone] to inquire about physical therapy in the evenings at [facility]. 3. Call [facility] to see about evaluation for services. 4. Take antibiotics as directed and complete full course. 5. Make sure you are getting at least 30 minutes of activity daily. 6. Take an extra Lasix tablet today and avoid salty foods as they may increase swelling, shortness of breath. 7. Return to ER for any new, concerning, or worsening symptoms. All discharge instructions reviewed with patient and/or family. Voiced under standing. Scripts Cefdinir (Cefdinir) 300 Mg Capsule 300 MG PO BID for 10 Days, #20 CAP 0 Refills Prov: NILDA HALL FILTER FILLER 02/17/21 NILDA HALL FILTER FILLER Feb 17, 2021 13:30
--- NOTE | 2021-02-17 14:31 | Diagnostic Imaging Report ---
EXAMINATION: Chest 1 view HISTORY: Confusion. Cough. Sepsis. COMPARISON: 02/05/2021. FINDINGS: The lung volumes are normal. Small amount of hazy opacities are seen in the right lung base. No large pleural effusion or pneumothorax is seen. Stable mildly prominent cardiac silhouette with post CABG changes seen. No acute osseous abnormality is seen. IMPRESSION: 1. Hazy opacities in the right lung base, which may represent edema, infection, or atelectasis. 2. Cardiomegaly without overt pulmonary edema. Dictated by: Dictated on workstation # [id number]
[2021-02-17 14:42] LABS: BASOPHILS # (AUTO) 0.1 10^3/uL (0.0-0.1); BASOPHILS % (AUTO) 1 % (0-10); EOSINOPHILS # (AUTO) 0.5 10^3/uL (0.0-0.3); EOSINOPHILS % (AUTO) 7 % (0-10); HEMATOCRIT 44 % (40-54); HEMOGLOBIN 14.2 g/dL (13.3-17.7); LYMPHOCYTES # (AUTO) 1.5 10^3/uL (1.0-4.0); LYMPHOCYTES % (AUTO) 24 % (12-44); MEAN CORPUSCULAR HEMOGLOBIN 30 pg (25-34); MEAN CORPUSCULAR HGB CONC 32 g/dL (32-36); MEAN CORPUSCULAR VOLUME 93 fL (80-99); MEAN PLATELET VOLUME 11.6 fL (9.0-12.2); MONOCYTES # (AUTO) 1.3 10^3/uL (0.0-1.0); MONOCYTES % (AUTO) 21 % (0-12); NEUTROPHILS % (AUTO) 47 % (42-75); PLATELET COUNT 205 10^3/uL (130-400); WHITE BLOOD COUNT 6.3 10^3/uL (4.3-11.0)
[2021-02-17 14:45] LABS: BILIRUBIN,URINE NEGATIVE (NEGATIVE); CLARITY,URINE CLEAR; COLOR,URINE YELLOW; GLUCOSE, URINE (UA) NEGATIVE (NEGATIVE); KETONES,URINE NEGATIVE (NEGATIVE); LEUKOCYTE ESTERASE ,URINE NEGATIVE (NEGATIVE); NITRITE,URINE NEGATIVE (NEGATIVE); PH,URINE 7.5 (5-9); PROTEIN,URINE NEGATIVE (NEGATIVE)
[2021-02-17 14:46] LABS: ALBUMIN 4.3 GM/DL (3.2-4.5); POTASSIUM 3.9 MMOL/L (3.6-5.0)
[2021-02-17 14:47] LABS: CALCIUM 9.9 MG/DL (8.5-10.1)
[2021-02-17 14:48] LABS: TOTAL PROTEIN 8.1 GM/DL (6.4-8.2)
[2021-02-17 14:50] LABS: BILIRUBIN,TOTAL 0.8 MG/DL (0.1-1.0); FIBRIN DEGRADATION PRODUCTS 0.3 UG/ML (0.00-0.49); INR 1.9 (0.8-1.4); PROTHROMBIN TIME PATIENT 22.2 SEC (12.2-14.7)
[2021-02-17 14:52] LABS: CREATININE SERUM 1.03 MG/DL (0.60-1.30)
[2021-02-17 15:03] LABS: EOSINOPHILS % (MANUAL) 5 %; LYMPHOCYTES % (MANUAL) 15 %; MONOCYTES % (MANUAL) 25 %; NEUTROPHILS % (MANUAL) 55 %; RBC MORPH NORMAL
[2021-02-17 15:10] LABS: BACTERIA,URINE NEGATIVE /HPF
[2021-02-17] MEDS ORDERED: CEFD300C3 PO (15:55)
[2021-02-17 16:13] VITALS: BP 122/69
== END 2021-02-17 16:13 | disposition home or self-care (01) ==
LOC: EDUNIT# 12:27 → ER 12:30
DX: J18.9 Pneumonia, unspecified organism (principal); I10 Essential (primary) hypertension; F32.9 Major depressive disorder, single episode, unspecified; I48.91 Unspecified atrial fibrillation; E78.00 Pure hypercholesterolemia, unspecified; I25.10 Atherosclerotic heart disease of native coronary artery without angina pectoris; Z20.822 Contact with and (suspected) exposure to COVID-19; Z87.820 Personal history of traumatic brain injury; Z86.711 Personal history of pulmonary embolism; Z86.718 Personal history of other venous thrombosis and embolism; Z79.01 Long term (current) use of anticoagulants; Z79.899 Other long term (current) drug therapy
CPT/HCPCS: 36415; 71045; 80053; 81000; 83605; 85007; 85027; 85379; 85610; 85730; 87040; 87088; 87636

== ENCOUNTER → 2021-03-14 | Outpatient (CLI) | payer MEDICARE, OTHER ==
[~2021-03-14] MED LIST changes: +CHOL10004 PO; -CHOL100045 PO
== END ==
LOC: CARD 12:00
PROVIDERS: ATTEND Internal Medicine Cardiovascular Disease
DX: I08.0 Rheumatic disorders of both mitral and aortic valves (principal); I11.9 Hypertensive heart disease without heart failure
CPT/HCPCS: 93306

== ENCOUNTER → 2021-07-05 | Outpatient (CLI) | payer MEDICARE, OTHER ==
[~2021-07-05] MED LIST changes: +ASCO1TAB42 PO; +CALC-687 PO; -POTA10TA36 PO; +POTA10TA37 PO
[2021-07-05 11:35] LABS: BILIRUBIN,URINE NEGATIVE (NEGATIVE); CLARITY,URINE CLEAR; COLOR,URINE YELLOW; GLUCOSE, URINE (UA) NEGATIVE (NEGATIVE); KETONES,URINE NEGATIVE (NEGATIVE); LEUKOCYTE ESTERASE ,URINE NEGATIVE (NEGATIVE); NITRITE,URINE NEGATIVE (NEGATIVE); PH,URINE 5.5 (5-9); PROTEIN,URINE NEGATIVE (NEGATIVE)
[2021-07-05 11:46] LABS: BACTERIA,URINE NEGATIVE /HPF
== END ==
LOC: LABNPT 11:30
PROVIDERS: ATTEND Internal Medicine
DX: N39.0 Urinary tract infection, site not specified (principal)
CPT/HCPCS: 81000

== ENCOUNTER 2021-07-06 13:24 | Inpatient (IN) | payer MEDICARE, OTHER ==
[~2021-07-06] VITALS: Ht 172.2 cm; Wt 93.3 kg
[~2021-07-06 13:24] MED LIST changes: -ASCO1TAB42 PO; -CALC-687 PO
[2021-07-06 13:53] LABS: BASOPHILS % (AUTO) 1 % (0-10); EOSINOPHILS # (AUTO) 0.1 10^3/uL (0.0-0.3); EOSINOPHILS % (AUTO) 1 % (0-10); HEMATOCRIT 43 % (40-54); HEMOGLOBIN 13.9 g/dL (13.3-17.7); LYMPHOCYTES # (AUTO) 0.9 10^3/uL (1.0-4.0); LYMPHOCYTES % (AUTO) 16 % (12-44); MEAN CORPUSCULAR HEMOGLOBIN 30 pg (25-34); MEAN CORPUSCULAR HGB CONC 32 g/dL (32-36); MEAN CORPUSCULAR VOLUME 93 fL (80-99); MEAN PLATELET VOLUME 11.4 fL (9.0-12.2); MONOCYTES # (AUTO) 1.5 10^3/uL (0.0-1.0); MONOCYTES % (AUTO) 25 % (0-12); NEUTROPHILS # (AUTO) 3.3 10^3/uL (1.8-7.8); NEUTROPHILS % (AUTO) 57 % (42-75); PLATELET COUNT 184 10^3/uL (130-400); WHITE BLOOD COUNT 5.9 10^3/uL (4.3-11.0)
[2021-07-06 13:55] LABS: BILIRUBIN,URINE NEGATIVE (NEGATIVE); CLARITY,URINE CLEAR; COLOR,URINE ORANGE; GLUCOSE, URINE (UA) NEGATIVE (NEGATIVE); KETONES,URINE NEGATIVE (NEGATIVE); LEUKOCYTE ESTERASE ,URINE NEGATIVE (NEGATIVE); NITRITE,URINE POSITIVE (NEGATIVE); PH,URINE 5.5 (5-9); PROTEIN,URINE NEGATIVE (NEGATIVE)
[2021-07-06 14:01] LABS: ALBUMIN 4.1 GM/DL (3.2-4.5)
[2021-07-06 14:02] LABS: POTASSIUM 3.9 MMOL/L (3.6-5.0)
[2021-07-06 14:03] LABS: CALCIUM 9.2 MG/DL (8.5-10.1)
[2021-07-06 14:04] LABS: TOTAL PROTEIN 7.5 GM/DL (6.4-8.2)
[2021-07-06 14:06] LABS: BILIRUBIN,TOTAL 0.7 MG/DL (0.1-1.0)
[2021-07-06 14:08] LABS: CREATININE SERUM 1.18 MG/DL (0.60-1.30)
[2021-07-06 14:10] LABS: BACTERIA,URINE FEW /HPF; HYALINE CASTS, URINE 0-2 /LPF; SQUAMOUS EPITHELIAL CELL,UR 0-2 /HPF; WBC,URINE 0-2 /HPF
[2021-07-06 14:11] LABS: MAGNESIUM 2.1 MG/DL (1.6-2.4)
[2021-07-06] MEDS ORDERED: RT-ALBUTEROL HFA 8.5 GM INHALER IH STA (14:21)
[2021-07-06 14:22] LABS: ATYPICAL LYMPHOCYTES 6 %; LYMPHOCYTES % (MANUAL) 13 %; MONOCYTES % (MANUAL) 23 %; NEUTROPHILS % (MANUAL) 58 %; RBC MORPH NORMAL
[2021-07-06 14:47] LABS: INR 2.2 (0.8-1.4); PROTHROMBIN TIME PATIENT 25.1 SEC (12.2-14.7)
--- NOTE | 2021-07-06 14:48 | Diagnostic Imaging Report ---
INDICATION: Confusion. TIME OF EXAM: 2:27 PM. COMPARISON: Correlation is made with prior chest from 02/17/2021. Changes of median sternotomy and CABG are noted. Lungs are clear. No infiltrates are seen. There is no effusion or pneumothorax. IMPRESSION: No acute cardiopulmonary process is detected. Dictated by: Dictated on workstation # [id number]
--- NOTE | 2021-07-06 14:56 | Diagnostic Imaging Report ---
PROCEDURE: CT head and CT cervical spine without contrast. TECHNIQUE: Multiple contiguous axial images were obtained through the brain and cervical spine without the use of intravenous contrast. Sagittal and coronal reformations through the cervical spine were then performed. Auto Exposure Controls were utilized during the CT exam to meet ALARA standards for radiation dose reduction. INDICATION: Altered mental status. Fall yesterday. COMPARISON: CT head without contrast 02/05/2021. FINDINGS: CT HEAD: Moderate generalized parenchymal volume loss. No CT evidence of an acute territorial infarction. No intracranial hemorrhage, mass effect or hydrocephalus. Low-attenuation small extra-axial fluid collection overlying the anterior left frontal lobe measuring up to 0.6 cm is stable. Osseous structures are intact. Paranasal sinuses and mastoids are clear. CT CERVICAL SPINE: Grade 1 retrolisthesis of C3 on C4. Vertebral body heights preserved. No fractures. Advanced atherosclerotic calcifications in the carotid bifurcations. Mild spondylotic changes. No evidence of high-grade spinal canal stenosis on soft tissue windows. Visualized lung apices are clear. IMPRESSION: 1. No acute intracranial or cervical spine CT findings. 2. Small low-attenuation extra-axial fluid collection overlying the anterior left frontal lobe is stable and likely represents a benign hygroma versus chronic subdural. No mass effect. Dictated by: Dictated on workstation # [id number]
[2021-07-06 17:00] LABS: ABG BASE EXCESS 1.3 MMOL/L (-2.5-2.5); ABG OXYGEN SATURATION 89 % (94-100); ABG PCO2 39 MMHG (35-45); ABG PH 7.43 (7.37-7.43); ABG PO2 56 MMHG (79-93); ABG TCO2 26.4 MMOL/L (21.0-31.0)
[2021-07-06 17:01] LABS: ALLENS TEST NO; PATIENT TEMP 37.1; VENTILATOR NO
--- NOTE | 2021-07-06 18:11 | ED General ---
General Chief Complaint: Altered Mental Status Stated Complaint: COVID 10,AMS,HYPOXIA,UTI Nursing Triage Note: ARRIVED VIA EMS FROM HOME WITH CONFUSION STARTING ON WEDNESDAY. FELL YESTERDAY. HX OF UTI. Source of Information: Patient, EMS, Family Exam Limitations: No Limitations History of Present Illness Date Seen by Provider: Jul 06, 2021 Time Seen by Provider: 13:29 Initial Comments This 86-year-old gentleman presents to the emergency room via EMS due to increased confusion at home. He is not wanting to eat or drink. He is unable to carry on a conversation. He also had falls yesterday in the home x2 and did strike his head. Daughter describes them as minor falls without identifiable injury. He has history of mild dementia and normally executes all of his ADLs independently and is able to carry on a conversation. Daughter remarks that he presented this way once previously when becoming septic with UTI. Yesterday and today he has had urinary frequency and incontinence. Dr. Amos is his primary care provider. It is also noted that COVID-19 was in the household last week. Patient is vaccinated for COVID-19 x3 as well as influenza. Patient denies any pain of any kind. Allergies and Home Medications Allergies Coded Allergies: Sulfa (Sulfonamide Antibiotics) (Verified Allergy, Unknown, UNSURE OF REACTION, 06/12/20) Patient Home Medication List Home Medication List Reviewed: Yes Ascorbate Calcium (Vitamin C) 500 Mg Tablet, 500 MG PO DAILY, (Reported) Entered as Reported by: GEETHA MCCARTHY on 11/21/20 141 Atorvastatin Calcium (Atorvastatin Calcium) 10 Mg Tablet, 10 MG PO HS, (Reported) Entered as Reported by: TERRY PEREZ on 05/15/20 0759 Cefdinir (Cefdinir) 300 Mg Capsule, 300 MG PO BID Prescribed by: NILDA HALL on 02/17/21 1555 Cholecalciferol (Vitamin D3) (Vitamin D3) 25 Mcg Tablet, 25 MCG PO DAILY, (Reported) Entered as Reported by: GEETHA MCCARTHY on 11/21/20 141 Cyanocobalamin (Vitamin B-12) (Vitamin B-12) 500 Mcg Tablet, 500 MCG PO DAILY, (Reported) Entered as Reported by: GEETHA MCCARTHY on 11/21/20 141 Ertapenem Sodium (Ertapenem) 1 Gm Vial, 1 GM IJ DAILY Prescribed by: SANTOS BRINK on 11/25/20 1019 Finasteride (Finasteride) 5 Mg Tablet, 5 MG PO DAILY, (Reported) Entered as Reported by: TERRY PEREZ on 05/15/20 0759 Furosemide (Furosemide) 20 Mg Tablet, 20 MG PO DAILY, (Reported) Entered as Reported by: TERRY PEREZ on 05/15/20 0759 Hydroxyzine Pamoate (Hydroxyzine Pamoate) 25 Mg Capsule, 25 MG PO TID PRN for ANXIETY, (Reported) Entered as Reported by: GEETHA MCCARTHY on 11/21/20 1416 Metoprolol Succinate (Metoprolol Succinate) 25 Mg Tab.er.24h, 25 MG PO DAILY, (Reported) Entered as Reported by: MARLON LA on 06/11/20 1219 Multivitamin (Multivitamin) 1 Each Tablet, 1 EACH PO DAILY, (Reported) Entered as Reported by: GEETHA MCCARTHY on 11/21/20 1417 Nitrofurantoin Monohyd/M-Cryst (Nitrofurantoin [place]-Mcr 100 mg) 100 Mg Capsule, 100 MG PO BID Prescribed by: SANTOS BRINK on 11/25/20 1121 Paroxetine HCl (Paroxetine HCl) 20 Mg Tablet, 20 MG PO DAILY, (Reported) Entered as Reported by: GEETHA MCCARTHY on 11/21/20 141 Potassium Chloride (Potassium Chloride) 10 Meq Tab.er.prt, 10 MEQ PO DAILY, (Reported) Entered as Reported by: TERRY PEREZ on 05/15/20 0759 Tamsulosin HCl (Flomax) 0.4 Mg Cap, 0.4 MG PO DAILY, (Reported) Entered as Reported by: MARLON LA on 06/11/20 1219 Tramadol HCl (Tramadol HCl) 50 Mg Tablet, 50 MG PO BID PRN for PAIN-MODERATE (5- 7), (Reported) Entered as Reported by: GEETHA MCCARTHY on 11/21/20 1416 Trazodone HCl (Trazodone HCl) 50 Mg Tablet, 50 MG PO HS, (Reported) Entered as Reported by: GEETHA MCCARTHY on 11/21/20 1416 Warfarin Sodium (Warfarin Sodium) 5 Mg Tablet, 5 MG PO WED,SAT, (Reported) Entered as Reported by: GEETHA MCCARTHY on 11/21/20 141 Warfarin Sodium (Warfarin Sodium) 5 Mg Tablet, 10 MG PO SUN,MO,TU,TH,FR, (Reported) Entered as Reported by: GEETHA MCCARTHY on 11/21/20 141 Review of Systems Review of Systems Constitutional: No fever; weakness EENTM: no symptoms reported Respiratory: no symptoms reported Cardiovascular: no symptoms reported Gastrointestinal: see HPI Genitourinary: see HPI Musculoskeletal: no symptoms reported Skin: no symptoms reported Psychiatric/Neurological: See HPI Hematologic/Lymphatic: No Symptoms Reported Immunological/Allergic: no symptoms reported Past Txgnjop-Ogivlp-Myvtyd Hx Patient Social History Tobacco Use?: No Substance use?: No Alcohol Use?: No Immunizations Up To Date Tetanus Booster (TDap): Less than 5yrs PED Vaccines UTD: No First/Initial COVID19 Vaccinat: 08/23/2011 Second COVID19 Vaccination Demarco: 09/24/2020 Seasonal Allergies Seasonal Allergies: No Past Medical History Surgeries: Yes (MITRAL VALVE REPLACEMENT, lithrotripsy) CABG, Tonsillectomy Respiratory: Yes Pulmonary Embolism Currently Using CPAP: No Currently Using BIPAP: No Cardiac: Yes (HX CABG) Atrial Fibrillation, Coronary Artery Disease, Deep Vein Thrombosis, High Cholesterol, Hypertension, Valvular Heart Disease Neurological: Yes Dementia, TIA Sexually Transmitted Disease: No HIV/AIDS: No Genitourinary: Yes Prostate Problems, Kidney Stones Gastrointestinal: Yes Gastroesophageal Reflux, Chronic Constipation Musculoskeletal: No Endocrine: No HEENT: Yes (PARTIAL DENTURE) Cancer: No Psychosocial: Yes Depression Integumentary: No Blood Disorders: No Adverse Reaction/Blood Tranf: No (N/A) Family Medical History No Pertinent Family Hx Physical Exam Vital Signs Vital Signs - First Documented 07/06/21 07/06/21 13:24 17:21 Temp 37.1 Pulse 66 Resp 16 B/P (MAP) 118/64 (82) Pulse Ox 93 O2 Delivery Room Air O2 Flow Rate 2.00 Capillary Refill : Less Than 3 Seconds Height, Weight, BMI Height: '" Weight: lbs. oz. kg; 27.00 BMI Method: General Appearance: WD/WN, Other (Mild agitation, confused) HEENT: PERRL/EOMI, Normal ENT Inspection Neck: Normal Inspection; No JVD Respiratory: Lungs Clear, Normal Breath Sounds, Accessory Muscle Use (With forced expiration) Cardiovascular: Regular Rate, Rhythm, No Edema, No Murmur Gastrointestinal: Normal Bowel Sounds, Non Tender, Soft Extremity: Normal Inspection, No Pedal Edema Neurologic/Psychiatric: Alert, No Motor/Sensory Deficits, front desk clerk II-XII Norm as Tested, Other (Confused speech, disoriented, slightly agitated) Skin: Normal Color, Warm/Dry Progress/Results/Core Measures Suspected Sepsis SIRS Temperature: Pulse: 66 Respiratory Rate: 16 Laboratory Tests 07/06/21 13:40: White Blood Count 5.9 Blood Pressure 118 /64 Mean: 82 Laboratory Tests 07/06/21 13:40: Creatinine 1.18, INR Comment 2.2H, Platelet Count 184, Total Bilirubin 0.7 Results/Orders Lab Results Laboratory Tests Test 07/06/21 13:40 07/06/21 16:50 Range/Units White Blood Count 5.9 4.3-11.0 10^3/uL Red Blood Count 4.66 4.30-5.52 10^6/uL Hemoglobin 13.9 13.3-17.7 g/dL Hematocrit 43 40-54 % Mean Corpuscular Volume 93 80-99 fL Mean Corpuscular Hemoglobin 30 25-34 pg Mean Corpuscular Hemoglobin Concent 32 32-36 g/dL Red Cell Distribution Width 13.4 10.0-14.5 % Platelet Count 184 130-400 10^3/uL Mean Platelet Volume 11.4 9.0-12.2 fL Immature Granulocyte % (Auto) 1 % Neutrophils (%) (Auto) 57 42-75 % Lymphocytes (%) (Auto) 16 12-44 % Monocytes (%) (Auto) 25 H 0-12 % Eosinophils (%) (Auto) 1 0-10 % Basophils (%) (Auto) 1 0-10 % Neutrophils # (Auto) 3.3 1.8-7.8 10^3/uL Lymphocytes # (Auto) 0.9 L 1.0-4.0 10^3/uL Monocytes # (Auto) 1.5 H 0.0-1.0 10^3/uL Eosinophils # (Auto) 0.1 0.0-0.3 10^3/uL Basophils # (Auto) 0.0 0.0-0.1 10^3/uL Immature Granulocyte # (Auto) 0.0 0.0-0.1 10^3/uL Neutrophils % (Manual) 58 % Lymphocytes % (Manual) 13 % Monocytes % (Manual) 23 % Atypical Lymphocytes 6 % Blood Morphology Comment NORMAL Prothrombin Time 25.1 H 12.2-14.7 SEC INR Comment 2.2 H 0.8-1.4 Activated Partial Thromboplast Time 52 H 24-35 SEC Urine Color ORANGE Urine Clarity CLEAR Urine pH 5.5 5-9 Urine Specific [place] 1.015 L 1.016-1.022 Urine Protein NEGATIVE NEGATIVE Urine Glucose (UA) NEGATIVE NEGATIVE Urine Ketones NEGATIVE NEGATIVE Urine Nitrite POSITIVE H NEGATIVE Urine Bilirubin NEGATIVE NEGATIVE Urine Urobilinogen 0.2 < = 1.0 MG/DL Urine Leukocyte Esterase NEGATIVE NEGATIVE Urine RBC (Auto) 1+ H NEGATIVE Urine RBC 10-25 H /HPF Urine WBC 0-2 /HPF Urine Squamous Epithelial Cells 0-2 /HPF Urine Crystals NONE /LPF Urine Bacteria FEW H /HPF Urine Casts PRESENT /LPF Urine Hyaline Casts 0-2 H /LPF Urine Mucus SMALL H /LPF Urine Culture Indicated YES Sodium Level 137 135-145 MMOL/L Potassium Level 3.9 3.6-5.0 MMOL/L Chloride Level 97 L 98-107 MMOL/L Carbon Dioxide Level 26 21-32 MMOL/L Anion Gap 14 5-14 MMOL/L Blood Urea Nitrogen 21 H 7-18 MG/DL Creatinine 1.18 0.60-1.30 MG/DL Estimat Glomerular Filtration Rate 60 BUN/Creatinine Ratio 18 Glucose Level 97 70-105 MG/DL Calcium Level 9.2 8.5-10.1 MG/DL Corrected Calcium 9.1 8.5-10.1 MG/DL Magnesium Level 2.1 1.6-2.4 MG/DL Total Bilirubin 0.7 0.1-1.0 MG/DL Aspartate Amino Transf (AST/SGOT) 41 H 5-34 U/L Alanine Aminotransferase (ALT/SGPT) 33 0-55 U/L Alkaline Phosphatase 65 40-136 U/L C-Reactive Protein High Sensitivity 0.71 H 0.00-0.50 MG/DL Total Protein 7.5 6.4-8.2 GM/DL Albumin 4.1 3.2-4.5 GM/DL Influenza Type A (RT-PCR) Not Detected Not Detecte Influenza Type B (RT-PCR) Not Detected Not Detecte SARS-CoV-2 RNA (RT-PCR) Detected H Not Detecte Blood Gas Puncture Site [place] Blood Gas Patient Temperature 37.1 Arterial Blood pH 7.43 7.37-7.43 Arterial Blood Partial Pressure CO2 39 35-45 MMHG Arterial Blood Partial Pressure O2 56 L 79-93 MMHG Arterial Blood HCO3 25 23-27 MMOL/L Arterial Blood Total CO2 26.4 21.0-31.0 MMOL/L Arterial Blood Oxygen Saturation 89 L 94-100 % Arterial Blood Base Excess 1.3 -2.5-2.5 MMOL/L Samuel Test NO Blood Gas Ventilator Setting NO Blood Gas Inspired Oxygen My Orders Orders - CULLEN HERNANDEZ MD Cbc With Automated Diff (07/06/21 13:42) Comprehensive Metabolic Panel (07/06/21 13:42) Hs C Reactive Protein (07/06/21 13:42) Magnesium (07/06/21 13:42) Ua Culture If Indicated (07/06/21 13:42) Ed Iv/Invasive Line Start (07/06/21 13:42) Covid 19 Inhouse Test (07/06/21 13:42) Influenza A And B By Pcr (07/06/21 13:42) Manual Differential (07/06/21 13:40) Ct Head/Cervical Spine Wo (07/06/21 14:02) Chest 1 View, Ap/Pa Only (07/06/21 14:02) Urine Culture (07/06/21 13:40) Arterial Blood Gas (07/06/21 14:20) Albuterol Inhaler (Albuterol) (07/06/21 14:21) Protime With Inr (07/06/21 14:36) Partial Thromboplastin Time (07/06/21 14:36) Bladder Scan (07/06/21 15:31) Dexamethasone Injection (Decadron Inje (07/06/21 17:45) Vital Signs/I&O 07/06/21 07/06/21 07/06/21 13:24 15:13 17:21 Temp 37.1 Pulse 66 Resp 16 B/P (MAP) 118/64 (82) Pulse Ox 93 92 O2 Delivery Room Air Room Air Nasal Cannula O2 Flow Rate 2.00 Capillary Refill : Less Than 3 Seconds Blood Pressure Mean: 82 Progress Note : Time: 18:08 Progress Note COVID-19 swab was positive. Patient continued to have delirium throughout his ER stay. He had multiple episodes of urinary incontinence and urinating on the floor. He required frequent redirection to stay in a chair or bed. He was not able to carry on coherent conversations. Although he did not have significant hypoxia on his pulse oximetry, he did show a low PO2 on ABG. He was started on nasal cannula oxygen. He also received albuterol via inhaler. Dexamethasone was administered prior to admission. Warfarin will be continued. Inpatient staff was notified that he needs to receive his evening dose. I discussed CODE STATUS with his daughter who is next of kin and healthcare power of assistant attorney general by default. She discussed this with her brother and they determined the patient should be full code at this time. There was suggestion of urinary tract infection on urinalysis. Rocephin was administered for initial treatment. Post void bladder scan revealed 185 mL. Arenas catheter was not necessary. Due to patient's falls yesterday and warfarin use, CT was obtained. No acute injuries were identified. Patient was cleared from a trauma perspective. Diagnostic Imaging Diagonstic Imaging: Xray Plain Films/CT/US/NM/MRI: chest Comments Chest x-ray report reviewed. See report below: NAME: DELMY BASS [facility] REC#: [id number] PT STATUS: REG ER : 1935 PHYSICIAN: CULLEN HERNANDEZ MD ADMIT DATE: 07/06/21/ER Signed Date of Exam:07/06/21 CHEST 1 VIEW, AP/PA ONLY INDICATION: Confusion. TIME OF EXAM: 2:27 PM. COMPARISON: Correlation is made with prior chest from 02/17/2021. Changes of median sternotomy and CABG are noted. Lungs are clear. No infiltrates are seen. There is no effusion or pneumothorax. IMPRESSION: No acute cardiopulmonary process is detected. Dictated by: Dictated on workstation # [id number] Dict: 07/06/21 1445 Trans: 07/06/21 1453 [facility] [id number] Interpreted by: KIMMIE CHAVIRA MD Electronically signed by: KIMMIE CHAVIRA MD 07/06/21 5129 Diagonstic Imaging: CT Plain Films/CT/US/NM/MRI: c-spine, head Comments CT head and C-spine viewed by me and report reviewed. See report below: NAME: DELMY BASS [facility] REC#: [id number] PT STATUS: REG ER : 1935 PHYSICIAN: CULLEN HERNANDEZ MD ADMIT DATE: 07/06/21/ER Signed Date of Exam:07/06/21 CT HEAD/CERVICAL SPINE WO PROCEDURE: CT head and CT cervical spine without contrast. TECHNIQUE: Multiple contiguous axial images were obtained through the brain and cervical spine without the use of intravenous contrast. Sagittal and coronal reformations through the cervical spine were then performed. Auto Exposure Controls were utilized during the CT exam to meet ALARA standards for radiation dose reduction. INDICATION: Altered mental status. Fall yesterday. COMPARISON: CT head without contrast 02/05/2021. FINDINGS: CT HEAD: Moderate generalized parenchymal volume loss. No CT evidence of an acute territorial infarction. No intracranial hemorrhage, mass effect or hydrocephalus. Low-attenuation small extra-axial fluid collection overlying the anterior left frontal lobe measuring up to 0.6 cm is stable. Osseous structures are intact. Paranasal sinuses and mastoids are clear. CT CERVICAL SPINE: Grade 1 retrolisthesis of C3 on C4. Vertebral body heights preserved. No fractures. Advanced atherosclerotic calcifications in the carotid bifurcations. Mild spondylotic changes. No evidence of high-grade spinal canal stenosis on soft tissue windows. Visualized lung apices are clear. IMPRESSION: 1. No acute intracranial or cervical spine CT findings. 2. Small low-attenuation extra-axial fluid collection overlying the anterior left frontal lobe is stable and likely represents a benign hygroma versus chronic subdural. No mass effect. Dictated by: Dictated on workstation # [id number] Dict: 07/06/21 1444 Trans: 07/06/21 1559 [facility] [id number] Interpreted by: OSMIN HALL MD Electronically signed by: OSMIN HALL MD 07/06/21 1559 Departure Communication (Admissions) Time/Spoke to Admitting Phy: 17:40 Dr. Hubbard Impression Primary Impression: COVID-19 Additional Impressions: Altered mental status Qualified Codes: R41.0 - Disorientation, unspecified Hypoxia Urinary tract infection Qualified Codes: N39.0 - Urinary tract infection, site not specified; R31.9 - Hematuria, unspecified Fall on same level Qualified Codes: W18.30XA - Fall on same level, unspecified, initial encounter Anticoagulated Disposition: ADMITTED INPATIENT Condition: Stable Admissions Decision to Admit Reason: Admit from ER (General) Decision to Admit/Date: Jul 06, 2021 Time/Decision to Admit Time: 17:15 Departure-Patient Inst. Referrals: MEGHANA AMOS MD (PCP/Family) Primary Care Physician CULLEN HERNANDEZ MD Jul 06, 2021 18:10
[2021-07-06] MEDS ORDERED: warFARin 5 MG (COUMADIN) TAB ONE (18:51)
[2021-07-06 18:57] VITALS: BP 118/64
[2021-07-06] MEDS ORDERED: warFARin 5 MG (COUMADIN) TAB PO ONE ×2 (19:00)
[2021-07-06] MEDS ORDERED: RT-ALBUTEROL HFA 8.5 GM INHALER IH PRN (19:00)
[2021-07-06 20:00] VITALS: BP 122/62
[2021-07-06] MEDS ORDERED: guaiFENesin SYRUP 100 MG/5 ML 10 ML (ROBITUSSIN SF) PO PRN (20:30)
[2021-07-06] MEDS ORDERED: ONDANSETRON 4 MG/2 ML (SDV) Z0FRAN IV PRN (20:30)
[2021-07-06] MEDS ORDERED: CATHETER FLUSH 10 ML SYR IV PRN (20:45)
[2021-07-06] MEDS ORDERED: cefTRIAXone 1 GM IV (PRE-MIX) 50 ML IV SCH (21:00)
[2021-07-06] MEDS ORDERED: NS (IVPB) 250 ML ONE (21:33)
[2021-07-06] MEDS ORDERED: HALOPERIDOL 5 MG/ML (HALDOL) VIAL IM/IV ONE ×2 (21:45)
[2021-07-06] MEDS: CATHETER FLUSH 10 ML SYR IV SCH (22:10)
[2021-07-07 00:21] VITALS: BP 120/76
[2021-07-07 03:24] VITALS: BP 115/68
[2021-07-07] MEDS: CATHETER FLUSH 10 ML SYR IV SCH ×3 (06:35→20:50)
[2021-07-07 06:38] LABS: BASOPHILS % (AUTO) 0 % (0-10); EOSINOPHILS % (AUTO) 0 % (0-10); HEMATOCRIT 42 % (40-54); HEMOGLOBIN 13.6 g/dL (13.3-17.7); LYMPHOCYTES # (AUTO) 0.9 10^3/uL (1.0-4.0); LYMPHOCYTES % (AUTO) 18 % (12-44); MEAN CORPUSCULAR HEMOGLOBIN 30 pg (25-34); MEAN CORPUSCULAR HGB CONC 33 g/dL (32-36); MEAN CORPUSCULAR VOLUME 91 fL (80-99); MEAN PLATELET VOLUME 11.6 fL (9.0-12.2); MONOCYTES # (AUTO) 0.9 10^3/uL (0.0-1.0); MONOCYTES % (AUTO) 18 % (0-12); NEUTROPHILS # (AUTO) 3.2 10^3/uL (1.8-7.8); NEUTROPHILS % (AUTO) 63 % (42-75); PLATELET COUNT 174 10^3/uL (130-400); WHITE BLOOD COUNT 5.1 10^3/uL (4.3-11.0)
[2021-07-07 06:52] LABS: INR 1.9 (0.8-1.4); PROTHROMBIN TIME PATIENT 22.4 SEC (12.2-14.7)
[2021-07-07 07:04] LABS: ALBUMIN 3.8 GM/DL (3.2-4.5); BILIRUBIN,TOTAL 0.5 MG/DL (0.1-1.0); CALCIUM 8.8 MG/DL (8.5-10.1); CREATININE SERUM 1.07 MG/DL (0.60-1.30); POTASSIUM 3.9 MMOL/L (3.6-5.0)
[2021-07-07 08:28] VITALS: BP 131/75
[2021-07-07 12:03] VITALS: BP 116/76
[2021-07-07] MEDS ORDERED: ASCO1TAB42 PO (15:19)
[2021-07-07] MEDS ORDERED: CALC-687 PO (15:19)
[2021-07-07 16:00] VITALS: BP 118/71
[2021-07-07] MEDS ORDERED: warFARin 10 MG (COUMADIN) TAB PO SCH (17:00)
--- NOTE | 2021-07-07 17:40 | History & Physical-Hospitalist ---
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 His daughter reports that he was confused at home. He also had a couple falls. He is awake and alert upon my exam. He does not remember how he ended up her. He knows his name and that he is at the hospital. He is unsure of the date. He is not short of breath. His daughter says he has been coughing. He did have a fever. He denies pain. He has been able to eat. He is not having any nausea, vomiting, or diarrhea. He has been up and walking to the bathroom. He has some neck pain because the bed is uncomfortable. Source: patient, family Exam Limitations: no limitations Date Seen 07/07/21 Time Seen by a Provider: 11:30 Attending Physician Joanne Hubbard MD PCP Jonathan Begum MD Referring Physician Date of Admission Jul 06, 2021 at 17:47 Home Medications & Allergies Home Medications Reviewed patient Home Medication Reconciliation performed by pharmacy medication reconciliations mail technician and/or nursing. Patients Allergies have been reviewed. Allergies Allergies Coded Allergies Sulfa (Sulfonamide Antibiotics) (Verified Allergy, Unknown, UNSURE OF REACTION, 07/06/21) Past Tlfeuwb-Bqwdzv-Txxmpg Hx Patient Social History Tobacco Use?: No Smoking Status: Former Smoker Smokeless Tobacco Frequency: Never a User Use of E-Cig and/or Vaping dev: No Substance use?: No Alcohol Use?: No Pt feels they are or have been: No Immunizations Up To Date Date of Influenza Vaccine: Jun 20, 2021 First/Initial COVID19 Vaccinat: 08/22/20 Second COVID19 Vaccination Demarco: 09/24/20 Tetanus Booster (TDap): Unknown Hepatitis A: No Hepatitis B: No PED Vaccines UTD: No Date of Pneumonia Vaccine: Mar 18, 2020 Seasonal Allergies Seasonal Allergies: No Current Status Advance Directives: No Communicates: Verbally Primary Language: Icelandic Preferred Spoken Language: Icelandic Is interpretation needed?: No Past Medical History Surgeries: CABG, Tonsillectomy Pulmonary Embolism Currently Using CPAP: No Currently Using BIPAP: No Atrial Fibrillation, Coronary Artery Disease, Deep Vein Thrombosis, High Cholesterol, Hypertension, Valvular Heart Disease Dementia, TIA Sexually Transmitted Disease: No HIV/AIDS: No Prostate Problems, Kidney Stones Gastroesophageal Reflux, Chronic Constipation Depression Blood Disorders: No Adverse Reaction/Blood Tranf: No (N/A) Family Medical History No Pertinent Family Hx Review of Systems Constitutional: fever EENTM: no symptoms reported Respiratory: cough Cardiovascular: no symptoms reported Gastrointestinal: no symptoms reported Genitourinary: no symptoms reported Musculoskeletal: neck pain Skin: no symptoms reported Psychiatric/Neurological: No Symptoms Reported Physical Exam Physical Exam Vital Signs Vital Signs - First Documented 07/06/21 07/06/21 13:24 17:21 Temp 37.1 Pulse 66 Resp 16 B/P (MAP) 118/64 (82) Pulse Ox 93 O2 Delivery Room Air O2 Flow Rate 2.00 Capillary Refill : Less Than 3 Seconds Height, Weight, BMI Height: '" Weight: lbs. oz. kg; 31.46 BMI Method: General Appearance: No Apparent Distress, Obese HEENT: PERRL/EOMI, Pharynx Normal Neck: Normal Inspection, Supple Respiratory: Lungs Clear, Normal Breath Sounds, No Respiratory Distress Cardiovascular: Regular Rate, Rhythm, No Edema, No Murmur Gastrointestinal: Normal Bowel Sounds, Non Tender, Soft Extremity: Normal Inspection, Non Tender, No Pedal Edema Neurologic/Psychiatric: Alert, Normal Mood/Affect, Disoriented Skin: Normal Color, Warm/Dry Results Results/Procedures Labs Laboratory Tests 07/06/21 13:40 07/07/21 06:17 Patient resulted labs reviewed. Imaging: Reviewed Imaging Report Assessment/Plan Admission Diagnosis Acute respiratory failure due to COVID-19 Admission Status: Inpatient Order (span 2 midnights) Reason for Inpatient Admission: COVID Assessment and Plan Acute respiratory failure due to COVID-19 Requiring minimal supplemental oxygen Chest xray unremarkable Started on Decadron Metabolic encephalopathy Concern for UTI Urine culture negative Stop Rocephin Symptoms resolved Dementia HTN HLD BPH History of TAVR Anticoagulated on coumadin Continue home meds Diagnosis/Problems Diagnosis/Problems (1) COVID-19 Status: Acute (2) Hypoxia Status: Acute (3) Altered mental status Status: Acute Qualifiers: Altered mental status type: delirium Qualified Codes: R41.0 - Disorientation, unspecified JOANNE HUBBARD MD Jul 07, 2021 17:40
[2021-07-07] MEDS ORDERED: hydrOXYzine (VISTARIL/ATARAX) 25 MG capsule/tablet PO PRN (18:00)
[2021-07-07] MEDS ORDERED: TAMSULOSIN 0.4 MG (FLOMAX) CAP PO SCH (18:00)
[2021-07-07 20:00] VITALS: BP 118/71
[2021-07-07] MEDS ORDERED: traZODone 50 MG (DESYREL) TAB PO SCH (21:00)
[2021-07-08 00:39] VITALS: BP 114/67
[2021-07-08 00:59] VITALS: BP 131/59
[2021-07-08] MEDS: CATHETER FLUSH 10 ML SYR IV SCH (05:33)
[2021-07-08 08:00] VITALS: BP 177/48
[2021-07-08] MEDS ORDERED: PARoxetine 20 MG (PAXIL) TAB PO SCH (09:00)
[2021-07-08] MEDS ORDERED: AtorvaSTATin TABLET 10 MG TABLET PO SCH (09:00)
[2021-07-08] MEDS ORDERED: FUROSEMIDE 20 MG (LASIX) TAB PO SCH (09:00)
[2021-07-08] MEDS ORDERED: FINASTERIDE (PROSCAR) 5 MG TAB PO SCH (09:00)
[2021-07-08 11:48] VITALS: BP 149/63
[2021-07-08 14:14] VITALS: BP 149/63
--- NOTE | 2021-07-08 21:12 | Discharge Summary ---
Discharge Summary Hospital Course Problems/Dx: (1) COVID-19 Status: Acute (2) Hypoxia Status: Acute (3) Altered mental status Status: Acute Qualifiers: Qualified Codes: R41.0 - Disorientation, unspecified Hospital Course Date of Admission: Jul 06, 2021 at 17:47 Admission Diagnosis : Acute respiratory failure due to COVID-19 Family Physician/Provider: Meghana Amos MD Date of Discharge: 07/08/21 Discharge Diagnosis: Acute respiratory failure due to COVID-19 Hospital Course: Craig oHpkins is an 86 year old male with dementia who presented with altered mental status and was admitted with COVID-19. He was initially requiring supplemental oxygen but this requirement quickly resolved. He remained stable with no oxygen requirement. He was discharged home in stable condition with his daughter. He should follow up with his primary care physician in 1-2 weeks. He was instructed to return with worsening shortness of breath, chest pain, or confusion. Labs and Pending Lab Test: Microbiology 07/06/21 Urine Culture - Final, Complete 3 or more isolates Home Meds Active Reported Elderberry-Vit C 50-100 mg Chw (Ascorbic Acid/Elderberry Fruit) 1 Each Tab.chew 1 Each PO DAILY Cqpptpr-Ppmnfvpbw-Erer Tablet (Calcium Carbonate/Mag Oxide/Zn) 1 Each Tablet 1 Each PO DAILY Vitamin D3 (Cholecalciferol (Vitamin D3)) 25 Mcg Tablet 25 Mcg PO DAILY Vitamin C (Ascorbate Calcium) 500 Mg Tablet 500 Mg PO DAILY Tramadol HCl 50 Mg Tablet 50 Mg PO BID PRN Trazodone HCl 50 Mg Tablet 50 Mg PO HS Paroxetine HCl 20 Mg Tablet 20 Mg PO DAILY Warfarin Sodium 5 Mg Tablet 10 Mg PO WED,,,, TAKES AT 1700 TAKES 2 (5MG) TABS Warfarin Sodium 5 Mg Tablet 5 Mg PO WED,WED TAKES AT 1700 Hydroxyzine Pamoate 25 Mg Capsule 25 Mg PO TID PRN Metoprolol Succinate 25 Mg Tab.er.24h 25 Mg PO DAILY Flomax (Tamsulosin HCl) 0.4 Mg Cap 0.4 Mg PO 1800 Atorvastatin Calcium 10 Mg Tablet 10 Mg PO DAILY Potassium Chloride 10 Meq Tab.er.prt 10 Meq PO DAILY Furosemide 20 Mg Tablet 20 Mg PO DAILY Finasteride 5 Mg Tablet 5 Mg PO DAILY Assessment/Pt Instructions See instructions Discharge Planning: <30 minutes discharge planning Discharge Instructions Discharge Diet: No Restrictions Activity as Tolerated: Yes Discharge Physical Examination Vital Signs Vital Signs Date Time Temp Pulse Resp B/P (MAP) Pulse Ox O2 Delivery O2 Flow Rate FiO2 07/08/21 14:14 35.8 67 22 149/63 90 Room Air 3.00 General Appearance: No Apparent Distress, Obese Respiratory: Lungs Clear, No Respiratory Distress Cardiovascular: Regular Rate, Rhythm, No Murmur Gastrointestinal: Normal Bowel Sounds, Soft Extremity: Normal Inspection, No Pedal Edema Skin: Normal Color, Warm/Dry Neurologic/Psychiatric: Alert, Normal Mood/Affect, Disoriented Allergies: Coded Allergies: Sulfa (Sulfonamide Antibiotics) (Verified Allergy, Unknown, UNSURE OF REACTION, 07/06/21) Copy Copies To 1: MEGHANA AMOS MD Discharge Summary Date of Admission Jul 06, 2021 at 17:47 Date of Discharge Jul 08, 2021 at 14:10 Discharge Date: Jul 08, 2021 Discharge Time: 14:10 Admission Diagnosis Acute respiratory failure due to COVID-19 Discharge Diagnosis Acute respiratory failure due to COVID-19 (1) COVID-19 Status: Acute (2) Hypoxia Status: Acute (3) Altered mental status Status: Acute Qualifiers: Qualified Codes: R41.0 - Disorientation, unspecified JOANNE CARUSO MD Jul 08, 2021 21:08
[2021-07-09] MEDS ORDERED: warFARin 5 MG (COUMADIN) TAB PO SCH (17:00)
== END 2021-07-08 14:10 | disposition home or self-care (01) | DRG 177 ==
LOC: EDUNIT# 13:24 → ER 13:29 → 4TH 17:47
PROVIDERS: ADMIT Internal Medicine; ATTEND Internal Medicine
PROC: 8E0ZXY6 Isolation (ICD-10-PCS; principal; 2021-07-06)
DX: U07.1 COVID-19 (principal); J96.01 Acute respiratory failure with hypoxia; G93.41 Metabolic encephalopathy; F03.90 Unspecified dementia, unspecified severity, without behavioral disturbance, psychotic disturbance, mood disturbance, and anxiety; I48.91 Unspecified atrial fibrillation; I25.10 Atherosclerotic heart disease of native coronary artery without angina pectoris; E78.00 Pure hypercholesterolemia, unspecified; K21.9 Gastro-esophageal reflux disease without esophagitis; K59.09 Other constipation; F32.A Depression, unspecified; R35.0 Frequency of micturition; E78.5 Hyperlipidemia, unspecified; N39.498 Other specified urinary incontinence; N40.1 Benign prostatic hyperplasia with lower urinary tract symptoms; I10 Essential (primary) hypertension; Z79.899 Other long term (current) drug therapy; Z88.2 Allergy status to sulfonamides; Z87.891 Personal history of nicotine dependence; Z86.73 Personal history of transient ischemic attack (TIA), and cerebral infarction without residual deficits; Z86.718 Personal history of other venous thrombosis and embolism; Z95.2 Presence of prosthetic heart valve; Z86.711 Personal history of pulmonary embolism; Z95.1 Presence of aortocoronary bypass graft; Z91.81 History of falling; Z79.01 Long term (current) use of anticoagulants
CPT/HCPCS: 36415; 70450; 71045; 72125; 80053; 81000; 82805; 83735; 85007; 85025; 85027; 85610; 85730; 86141; 87088; 87636; 94640; 94760

== ENCOUNTER 2021-09-01 09:56 | Inpatient (IN) | payer MEDICARE, OTHER ==
[~2021-09-01] VITALS: Ht 180 cm; Wt 96.7 kg
[~2021-09-01 09:56] MED LIST changes: +ASCO1TAB42 PO; +CALC-687 PO
[2021-09-01] MEDS ORDERED: morphine INJ 10 MG/ML 1ML (SYR OR VIAL) IVP STA (10:08)
[2021-09-01] MEDS ORDERED: morphine INJ 10 MG/ML 1ML (SYR OR VIAL) ONE (10:10)
--- NOTE | 2021-09-01 10:19 | ED Fall/Injury ---
General Chief Complaint: Trauma-Non Activation Stated Complaint: FALL Source: patient Exam Limitations: no limitations History of Present Illness Date Seen by Provider: Sep 01, 2021 Time Seen by Provider: 10:06 Initial Comments Patient to the ER by EMS from home with chief complaint that he tripped and fell over his coffee table about 6 AM. He is unable to bear weight on his right leg and has tenderness swelling and tightness in his right hip. No previous surgery there. On Warfarin. He is not a smoker. He did not hit his head. No loss of consciousness. He received 100 mcg of fentanyl on route as well as 4 mg Zofran. Last Oral intake 2 hours prior to arrival. Allergies and Home Medications Allergies Coded Allergies: Sulfa (Sulfonamide Antibiotics) (Verified Allergy, Unknown, UNSURE OF REACTION, 07/06/21) Patient Home Medication List Home Medication List Reviewed: Yes Ascorbate Calcium (Vitamin C) 500 Mg Tablet, 500 MG PO DAILY, (Reported) Entered as Reported by: GEETHA MCCARTHY on 11/21/20 1417 Ascorbic Acid/Elderberry Fruit (Elderberry-Vit C 50-100 mg Chw) 1 Each Tab.chew, 1 EACH PO DAILY, (Reported) Entered as Reported by: GEETHA MCCARTHY on 07/07/21 1519 Atorvastatin Calcium (Atorvastatin Calcium) 10 Mg Tablet, 10 MG PO DAILY, (Reported) Entered as Reported by: TERRY PEREZ on 05/15/20 0759 Calcium Carbonate/Mag Oxide/Zn (Azjjdev-Kelsikgaz-Sjjh Tablet) 1 Each Tablet, 1 EACH PO DAILY, (Reported) Entered as Reported by: GEETHA MCCARTHY on 07/07/21 1519 Cholecalciferol (Vitamin D3) (Vitamin D3) 25 Mcg Tablet, 25 MCG PO DAILY, (Reported) Entered as Reported by: GEETHA MCCARTHY on 11/21/20 1417 Finasteride (Finasteride) 5 Mg Tablet, 5 MG PO DAILY, (Reported) Entered as Reported by: TERRY PEREZ on 05/15/20 0759 Furosemide (Furosemide) 20 Mg Tablet, 20 MG PO DAILY, (Reported) Entered as Reported by: TERRY PEREZ on 05/15/20 0759 Hydroxyzine Pamoate (Hydroxyzine Pamoate) 25 Mg Capsule, 25 MG PO TID PRN for ANXIETY, (Reported) Entered as Reported by: GEETHA MCCARTHY on 11/21/20 141 Metoprolol Succinate (Metoprolol Succinate) 25 Mg Tab.er.24h, 25 MG PO DAILY, (Reported) Entered as Reported by: MARLON LA on 06/11/20 1219 Paroxetine HCl (Paroxetine HCl) 20 Mg Tablet, 20 MG PO DAILY, (Reported) Entered as Reported by: GEETHA MCCARTHY on 11/21/20 141 Potassium Chloride (Potassium Chloride) 10 Meq Tab.er.prt, 10 MEQ PO DAILY, (Reported) Entered as Reported by: TERRY PEREZ on 05/15/20 0759 Tamsulosin HCl (Flomax) 0.4 Mg Cap, 0.4 MG PO 1800, (Reported) Entered as Reported by: MARLON LA on 06/11/20 121 Tramadol HCl (Tramadol HCl) 50 Mg Tablet, 50 MG PO BID PRN for PAIN-MODERATE (5- 7), (Reported) Entered as Reported by: GEETHA MCCARTHY on 11/21/20 141 Trazodone HCl (Trazodone HCl) 50 Mg Tablet, 50 MG PO HS, (Reported) Entered as Reported by: GEETHA MCCARTHY on 11/21/20 141 Warfarin Sodium (Warfarin Sodium) 5 Mg Tablet, 5 MG PO WED,SAT, (Reported) Entered as Reported by: GEETHA MCCARTHY on 11/21/201415 Warfarin Sodium (Warfarin Sodium) 5 Mg Tablet, 10 MG PO SUN,MO,,TH,FR, (Reported) Entered as Reported by: GEEHTA MCCARTHY on 11/21/201415 Review of Systems Review of Systems Constitutional: No chills, No diaphoresis Eyes: Denies Blindness, Denies Blurred Vision Ears, Nose, Mouth, Throat: denies ear pain, denies ear discharge Respiratory: No cough, No short of breath Cardiovascular: No chest pain, No edema Gastrointestinal: No abdominal pain, No nausea Genitourinary: No dysuria, No hesitancy Musculoskeletal: No joint swelling, No muscle pain All Other Systems Reviewed Negative Unless Noted: Yes Past Iwfljqu-Bkvvha-Qeccze Hx Patient Social History Tobacco Use?: No Use of E-Cig and/or Vaping dev: No Immunizations Up To Date Tetanus Booster (TDap): Less than 5yrs PED Vaccines UTD: No First/Initial COVID19 Vaccinat: 08/22/20 Second COVID19 Vaccination Demarco: 09/24/20 Seasonal Allergies Seasonal Allergies: No Past Medical History Surgery/Hospitalization HX: GLASSES NOT AT BEDSIDE HAS PARTIAL BUT LEFT THEM AT HOME Surgeries: Yes (MITRAL VALVE REPLACEMENT, lithrotripsy) CABG, Tonsillectomy Respiratory: Yes Pulmonary Embolism Currently Using CPAP: No Currently Using BIPAP: No Cardiac: Yes (HX CABG) Atrial Fibrillation, Coronary Artery Disease, Deep Vein Thrombosis, High Cholesterol, Hypertension, Valvular Heart Disease Neurological: Yes Dementia, TIA Sexually Transmitted Disease: No HIV/AIDS: No Genitourinary: Yes Prostate Problems, Kidney Stones Gastrointestinal: Yes Gastroesophageal Reflux, Chronic Constipation Musculoskeletal: No Endocrine: No HEENT: Yes (PARTIAL DENTURE) Cancer: No Psychosocial: Yes Depression Integumentary: No Blood Disorders: No Adverse Reaction/Blood Tranf: No (N/A) Family Medical History No Pertinent Family Hx Physical Exam Vital Signs Vital Signs - First Documented 09/01/21 09:59 Temp 35.3 Pulse 65 Resp 19 B/P (MAP) 176/84 (114) Pulse Ox 96 O2 Delivery Nasal Cannula O2 Flow Rate 3.00 Capillary Refill : Height, Weight, BMI Height: '" Weight: lbs. oz. kg; 31.46 BMI Method: General Appearance: moderate distress HEENT: PERRL/EOMI; No pharynx normal Neck: full range of motion, normal inspection Cardiovascular: normal peripheral pulses, regular rate, rhythm Respiratory: lungs clear, normal breath sounds, no respiratory distress, no accessory muscle use, other (After fentanyl O2 saturations were in the upper 80s on room air) Gastrointestinal: normal bowel sounds, non tender, soft Extremities: swelling (Right femur and hip with tautness, hard proximal right thigh. No edema.), other (3-4 dorsal pedal pulse bilateral lower extremities.) Neurologic/Psychiatric: alert, normal mood/affect, oriented x 3 Skin: normal color, warm/dry [place] Coma Score Best Eye Response: (4) Open Spontaneously Best Verbal Response: (5) Oriented Best Motor Response: (6) Obeys Commands [place] Total: 15 Procedures/Interventions Progress Keene manometry anterior right thigh compartment pressure 2 measurements 112 and 113. Medial compartment 21 mmHg. Progress/Results/Core Measures Results/Orders Lab Results Laboratory Tests Test 09/01/21 10:15 Range/Units White Blood Count 14.8 H 4.3-11.0 10^3/uL Red Blood Count 4.24 L 4.30-5.52 10^6/uL Hemoglobin 12.6 L 13.3-17.7 g/dL Hematocrit 39 L 40-54 % Mean Corpuscular Volume 92 80-99 fL Mean Corpuscular Hemoglobin 30 25-34 pg Mean Corpuscular Hemoglobin Concent 32 32-36 g/dL Red Cell Distribution Width 13.4 10.0-14.5 % Platelet Count 241 130-400 10^3/uL Mean Platelet Volume 11.6 9.0-12.2 fL Immature Granulocyte % (Auto) 1 % Neutrophils (%) (Auto) 74 42-75 % Lymphocytes (%) (Auto) 15 12-44 % Monocytes (%) (Auto) 8 0-12 % Eosinophils (%) (Auto) 2 0-10 % Basophils (%) (Auto) 1 0-10 % Neutrophils # (Auto) 10.9 H 1.8-7.8 10^3/uL Lymphocytes # (Auto) 2.2 1.0-4.0 10^3/uL Monocytes # (Auto) 1.2 H 0.0-1.0 10^3/uL Eosinophils # (Auto) 0.3 0.0-0.3 10^3/uL Basophils # (Auto) 0.1 0.0-0.1 10^3/uL Immature Granulocyte # (Auto) 0.1 0.0-0.1 10^3/uL Neutrophils % (Manual) 72 % Lymphocytes % (Manual) 3 % Monocytes % (Manual) 6 % Eosinophils % (Manual) 3 % Basophils % (Manual) 1 % Band Neutrophils 1 % Reactive Lymphocytes 14 % Blood Morphology Comment NORMAL Prothrombin Time 29.4 H 12.2-14.7 SEC INR Comment 2.7 H 0.8-1.4 Sodium Level 137 135-145 MMOL/L Potassium Level 4.4 3.6-5.0 MMOL/L Chloride Level 102 98-107 MMOL/L Carbon Dioxide Level 24 21-32 MMOL/L Anion Gap 11 5-14 MMOL/L Blood Urea Nitrogen 17 7-18 MG/DL Creatinine 0.90 0.60-1.30 MG/DL Estimat Glomerular Filtration Rate 84 BUN/Creatinine Ratio 19 Glucose Level 175 H 70-105 MG/DL Calcium Level 9.4 8.5-10.1 MG/DL Corrected Calcium 9.6 8.5-10.1 MG/DL Total Bilirubin 0.7 0.1-1.0 MG/DL Aspartate Amino Transf (AST/SGOT) 21 5-34 U/L Alanine Aminotransferase (ALT/SGPT) 22 0-55 U/L Alkaline Phosphatase 69 40-136 U/L Total Protein 6.5 6.4-8.2 GM/DL Albumin 3.7 3.2-4.5 GM/DL My Orders Orders - MICHAEL MOSCOSO Femur, Right, 2 Views (09/01/21 10:05) Hip, Right, 2 Views (09/01/21 10:05) Chest 1 View, Ap/Pa Only (09/01/21 10:08) Morphine Injection (Morphine Injection (09/01/21 10:08) Morphine Injection (Morphine Injection (09/01/21 10:10) Cbc With Automated Diff (09/01/21 10:13) Comprehensive Metabolic Panel (09/01/21 10:13) Protime With Inr (09/01/21 10:13) Type And Screen (09/01/21 10:13) Ekg Tracing (09/01/21 10:26) Continuous Ekg Monitoring (09/01/21 10:26) Hydromorphone Injection (Dilaudid Inject (09/01/21 10:30) Ct Pelvis Wo (09/01/21 10:30) Hydromorphone Injection (Dilaudid Inject (09/01/21 10:28) Manual Differential (09/01/21 10:15) Ketamine Syringe (Ketamine Syringe) (09/01/21 12:15) Ketamine Syringe (Ketamine Syringe) (09/01/21 12:06) Ns (Ivpb) (Sodium Chloride 0.9%) (09/01/21 12:06) Medications Given in ED Current Medications Medications Dose Ordered Sig/Le Route Start Time Stop Time Status Last Admin Dose Admin Hydromorphone HCl 0.5 mg ONCE ONCE IV 09/01/21 10:30 09/01/21 10:31 DC 09/01/21 10:31 0.5 MG Ketamine HCl 25 mg ONCE ONCE IV 09/01/21 12:15 09/01/21 12:16 DC 09/01/21 12:12 25 MG Sodium Chloride 250 ml @ ud STK-MED ONCE .ROUTE 09/01/21 12:06 09/01/21 12:10 DC 09/01/21 12:12 250 MLS/HR Vital Signs/I&O 09/01/21 09/01/21 09/01/21 09:59 09:59 10:37 Temp 35.3 35.3 Pulse 65 65 66 Resp 19 19 14 B/P (MAP) 176/84 (114) 176/84 (114) 144/75 Pulse Ox 96 96 93 O2 Delivery Nasal Cannula Nasal Cannula Nasal Cannula O2 Flow Rate 3.00 2.00 Progress Progress Note #1: Time: 10:18 Progress Note Concern for orthopedic injury with overlying compartment syndrome. Will discuss with orthopedic surgery. 6 more milligrams morphine for his pain that is intractable despite fentanyl. Progress Note #2: Time: 11:43 Progress Note Half milligram Dilaudid and the patient still rates his pain as severe but seems more comfortable. We put him on end-tidal CO2 which is reading now 38. He is on 2 L by nasal cannula of oxygen. He does not use oxygen at baseline. We will consider ketamine if we need further pain medication.1110: Discussed the case with Dr. Paez who will come see the patient. He is in the operating theater at this time. Patient still has good palpable dorsal pedal pulse. Capillary refill at 3 seconds. Initial ECG Impression Date: Sep 01, 2021 Initial ECG Impression Time: 10:35 Initial ECG Rate: 66 Initial ECG Rhythm: Normal Sinus Initial ECG Intervals: Normal Initial ECG Impression: Normal Comment Normal sinus rhythm without clinically relevant ST elevation or depression. Diagnostic Imaging Diagonstic Imaging: Xray Plain Films/CT/US/NM/MRI: chest Comments [facility]. [place], [place] NAME: DELMY BASS [facility] REC#: [id number] PT STATUS: REG ER : 1935 PHYSICIAN: MICHAEL MOSCOSO MD ADMIT DATE: 09/01/21/ER Draft Date of Exam:09/01/21 CHEST 1 VIEW, AP/PA ONLY INDICATION: Left leg and hip pain. Time Of Exam: 10:16 AM Correlation is made with prior chest from 07/06/2021. Heart size is stable. There are changes of median sternotomy. There is some minimal patchy density in the right base. Otherwise, the lungs are clear. There is no effusion or pneumothorax. The pulmonary vascularity is normal. IMPRESSION: Status post CABG. There is some minimal patchy density right base. This could represent a small area of infiltrate or atelectasis. The study is otherwise unremarkable. Dictated on workstation # [id number] Dict: 09/01/21 1031 Trans: 09/01/21 1034 [facility] [id number] Interpreted by: KIMMIE HCAVIRA MD Electronically signed by: Reviewed: Reviewed by Me Diagonstic Imaging: Xray Plain Films/CT/US/NM/MRI: hip, femur (r) Comments [facility], [place] NAME: SHELIADELMY [facility] REC#: [id number] PT STATUS: REG ER : 1935 PHYSICIAN: MICHAEL MOSCOSO MD ADMIT DATE: 09/01/21/ER Draft Date of Exam:09/01/21 HIP, RIGHT, 2 VIEWS INDICATION: Right hip pain. FINDINGS: Two views of the right hip show normal femoroacetabular alignment. Joint space is maintained. Femoral head and neck are intact. No fractures are identified. IMPRESSION: No acute abnormality is detected. Dictated on workstation # [id number] Dict: 09/01/21 1035 Trans: 09/01/21 1036 [id number] Interpreted by: KIMMIE CHAVIRA MD Electronically signed by: [facility] Weather [place], [place] NAME: SHELIADELMY [facility] REC#: [id number] PT STATUS: REG ER : 1935 PHYSICIAN: MICHAEL MOSCOSO MD ADMIT DATE: 09/01/21/ER Draft Date of Exam:09/01/21 FEMUR, RIGHT, 2 VIEWS INDICATION: Right leg pain. TIME OF EXAM: 10:11 AM. TECHNIQUE: Two views of the right femur were obtained. FINDINGS: Alignment at the hip and knee is normal. The femur appears intact. No fractures are seen. There are multiple surgical clips in the soft tissues of the medial right thigh. IMPRESSION: No acute bony abnormality is detected. Dictated on workstation # [id number] Dict: 09/01/21 1036 Trans: 09/01/21 1037 [facility] [id number] Interpreted by: KIMMIE CHAVIRA MD Electronically signed by: Reviewed: Reviewed by Me Diagonstic Imaging: CT Plain Films/CT/US/NM/MRI: pelvis Comments [facility] [place] NAME: DELMY BASS [facility] REC#: [id number] PT STATUS: REG ER : 1935 PHYSICIAN: MICHAEL MOSCOSO MD ADMIT DATE: 09/01/21/ER Draft Date of Exam:09/01/21 CT PELVIS WO PROCEDURE: CT pelvis without contrast. TECHNIQUE: Multiple contiguous axial images were obtained through the pelvis without the use of intravenous contrast. Sagittal and coronal reformations were performed. Auto Exposure Controls were utilized during the CT exam to meet ALARA standards for radiation dose reduction. INDICATION: Hip pain. COMPARISON: CT abdomen and pelvis 11/08/2020. FINDINGS: No intra or extraperitoneal pelvic hemorrhage or fluid collection. No suspicious hyperdensity or volume asymmetry of the pelvic musculature. Femoral heads are directed into the acetabula bilaterally. There is no symphyseal or SI joint diastasis. No abdominal wall hernia or defect. Some chronic venous varicosities in the right groin and lower lateral abdominal subcutaneous fat are noted. There are nonaneurysmal atherosclerotic vascular calcifications. No fracture, bony destruction, or dislocation. No acute post traumatic sequelae identified. IMPRESSION: No pelvic fracture, hemorrhage, or acute appearing abnormalities. Dictated on workstation # [id number] Dict: 09/01/21 1104 Trans: 09/01/21 1109 [facility] [id number] Interpreted by: PRAVENE CAMACHO Electronically signed by: Reviewed: Reviewed by Me Departure Communication (Admissions) Time/Spoke to Admitting Phy: 12:45 Dr. Muse discussed the case and she said she will come down to the ER and see the patient. Dr. Muse accepts the patient for pain management, consult to orthopedics, neurovascular checks every 6 hours. She will put in queued orders. Time/Spoke to Consulting Phy: 12:30 Dr. Paez to the bedside examined the patient and agrees that the patient likely has compartment syndrome and even some hemarthrosis of his right knee. At this time he does not feel he is appropriate for surgical intervention. He is okay for consult if the medicine team wants to observe for pain management. Impression Primary Impression: Compartment syndrome of right lower extremity Qualified Codes: T79.A21A - Traumatic compartment syndrome of right lower extremity, initial encounter Additional Impressions: Fall Qualified Codes: W19.XXXA - Unspecified fall, initial encounter Contusion Qualified Codes: S70.11XA - Contusion of right thigh, initial encounter Disposition: ADMITTED INPATIENT Condition: Stable Admissions Decision to Admit Reason: Admit from ER (Trauma) Decision to Admit/Date: Sep 01, 2021 Time/Decision to Admit Time: 11:15 Departure-Patient Inst. Referrals: MEGHANA AMOS MD (PCP/Family) Primary Care Physician MICHAEL MOSCOSO Sep 01, 2021 10:19
[2021-09-01] MEDS ORDERED: HYDROmorphone 2 MG/ML VIAL (DILAUDID) ONE ×2 (10:28→13:45)
[2021-09-01] MEDS ORDERED: HYDROmorphone 2 MG/ML VIAL (DILAUDID) IV ONE ×2 (10:30→13:45)
[2021-09-01 10:35] LABS: BASOPHILS # (AUTO) 0.1 10^3/uL (0.0-0.1); BASOPHILS % (AUTO) 1 % (0-10); EOSINOPHILS # (AUTO) 0.3 10^3/uL (0.0-0.3); EOSINOPHILS % (AUTO) 2 % (0-10); HEMATOCRIT 39 % (40-54); HEMOGLOBIN 12.6 g/dL (13.3-17.7); LYMPHOCYTES # (AUTO) 2.2 10^3/uL (1.0-4.0); LYMPHOCYTES % (AUTO) 15 % (12-44); MEAN CORPUSCULAR HEMOGLOBIN 30 pg (25-34); MEAN CORPUSCULAR HGB CONC 32 g/dL (32-36); MEAN CORPUSCULAR VOLUME 92 fL (80-99); MEAN PLATELET VOLUME 11.6 fL (9.0-12.2); MONOCYTES # (AUTO) 1.2 10^3/uL (0.0-1.0); MONOCYTES % (AUTO) 8 % (0-12); NEUTROPHILS # (AUTO) 10.9 10^3/uL (1.8-7.8); NEUTROPHILS % (AUTO) 74 % (42-75); PLATELET COUNT 241 10^3/uL (130-400); WHITE BLOOD COUNT 14.8 10^3/uL (4.3-11.0)
--- NOTE | 2021-09-01 10:35 | Diagnostic Imaging Report ---
INDICATION: Left leg and hip pain. Time Of Exam: 10:16 AM Correlation is made with prior chest from 07/06/2021. Heart size is stable. There are changes of median sternotomy. There is some minimal patchy density in the right base. Otherwise, the lungs are clear. There is no effusion or pneumothorax. The pulmonary vascularity is normal. IMPRESSION: Status post CABG. There is some minimal patchy density right base. This could represent a small area of infiltrate or atelectasis. The study is otherwise unremarkable. Dictated by: Dictated on workstation # [id number]
--- NOTE | 2021-09-01 10:37 | Diagnostic Imaging Report ---
INDICATION: Right hip pain. FINDINGS: Two views of the right hip show normal femoroacetabular alignment. Joint space is maintained. Femoral head and neck are intact. No fractures are identified. IMPRESSION: No acute abnormality is detected. Dictated by: Dictated on workstation # [id number]
--- NOTE | 2021-09-01 10:38 | Diagnostic Imaging Report ---
INDICATION: Right leg pain. TIME OF EXAM: 10:11 AM. TECHNIQUE: Two views of the right femur were obtained. FINDINGS: Alignment at the hip and knee is normal. The femur appears intact. No fractures are seen. There are multiple surgical clips in the soft tissues of the medial right thigh. IMPRESSION: No acute bony abnormality is detected. Dictated by: Dictated on workstation # [id number]
[2021-09-01 10:47] LABS: ALBUMIN 3.7 GM/DL (3.2-4.5); POTASSIUM 4.4 MMOL/L (3.6-5.0)
[2021-09-01 10:48] LABS: CALCIUM 9.4 MG/DL (8.5-10.1)
[2021-09-01 10:49] LABS: TOTAL PROTEIN 6.5 GM/DL (6.4-8.2)
[2021-09-01 10:51] LABS: BILIRUBIN,TOTAL 0.7 MG/DL (0.1-1.0)
[2021-09-01 10:52] LABS: INR 2.7 (0.8-1.4); PROTHROMBIN TIME PATIENT 29.4 SEC (12.2-14.7)
[2021-09-01 10:53] LABS: CREATININE SERUM 0.9 MG/DL (0.60-1.30)
[2021-09-01 11:03] LABS: BAND NEUTROPHILS 1 %; BASOPHILS % (MANUAL) 1 %; EOSINOPHILS % (MANUAL) 3 %; LYMPHOCYTES % (MANUAL) 3 %; MONOCYTES % (MANUAL) 6 %; NEUTROPHILS % (MANUAL) 72 %; RBC MORPH NORMAL; REACTIVE LYMPHOCYTES 14 %
--- NOTE | 2021-09-01 11:10 | Diagnostic Imaging Report ---
PROCEDURE: CT pelvis without contrast. TECHNIQUE: Multiple contiguous axial images were obtained through the pelvis without the use of intravenous contrast. Sagittal and coronal reformations were performed. Auto Exposure Controls were utilized during the CT exam to meet ALARA standards for radiation dose reduction. INDICATION: Hip pain. COMPARISON: CT abdomen and pelvis 11/08/2020. FINDINGS: No intra or extraperitoneal pelvic hemorrhage or fluid collection. No suspicious hyperdensity or volume asymmetry of the pelvic musculature. Femoral heads are directed into the acetabula bilaterally. There is no symphyseal or SI joint diastasis. No abdominal wall hernia or defect. Some chronic venous varicosities in the right groin and lower lateral abdominal subcutaneous fat are noted. There are nonaneurysmal atherosclerotic vascular calcifications. No fracture, bony destruction, or dislocation. No acute post traumatic sequelae identified. IMPRESSION: No pelvic fracture, hemorrhage, or acute appearing abnormalities. Dictated by: Dictated on workstation # [id number]
[2021-09-01] MEDS ORDERED: NS (IVPB) 250 ML ONE (12:06)
[2021-09-01] MEDS ORDERED: KETAMINE 50 MG/5 ML SYRINGE ONE (12:06)
[2021-09-01] MEDS ORDERED: KETAMINE 50 MG/5 ML SYRINGE IV ONE (12:15)
--- NOTE | 2021-09-01 13:17 | History & Physical-Hospitalist ---
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 He tripped over his own feet at home and fell and hit his leg on his coffee table. EMS was summoned due to severe pain. He was given 100mcg of Fentanyl in the ambulance without relief and continued to have pain. Just prior to my exam he got a dose of Dliaudid and was quite drowsy during our conversation and history is somewhat limited by that. Daughter states he is normally pretty healthy but is on Coumadin after a TAVR. He complains of pain in his leg and wanting something to drink and otherwise mostly just slept. Source: patient, family Date Seen 09/01/21 Time Seen by a Provider: 13:40 Attending Physician PCP Jonathan Begum MD Referring Physician Date of Admission Home Medications & Allergies Home Medications Reviewed patient Home Medication Reconciliation performed by pharmacy medication reconciliations configuration technician and/or nursing. Patients Allergies have been reviewed. Allergies Allergies Coded Allergies Sulfa (Sulfonamide Antibiotics) (Verified Allergy, Unknown, UNSURE OF REACTION, 07/06/21) Past Ommhvxr-Ymbjox-Ctpgjf Hx Patient Social History Tobacco Use?: No Use of E-Cig and/or Vaping dev: No Substance use?: No Alcohol Use?: No Pt feels they are or have been: No Immunizations Up To Date Date of Influenza Vaccine: Jun 20, 2021 First/Initial COVID19 Vaccinat: 08/22/20 Second COVID19 Vaccination Demarco: 09/24/20 Tetanus Booster (TDap): Unknown Hepatitis A: No Hepatitis B: No PED Vaccines UTD: No Date of Pneumonia Vaccine: Mar 18, 2020 Seasonal Allergies Seasonal Allergies: No Current Status Advance Directives: No Primary Language: Brazilian Preferred Spoken Language: Brazilian Past Medical History Surgeries: CABG, Tonsillectomy Pulmonary Embolism Currently Using CPAP: No Currently Using BIPAP: No Atrial Fibrillation, Coronary Artery Disease, Deep Vein Thrombosis, High Cholesterol, Hypertension, Valvular Heart Disease Dementia, TIA Sexually Transmitted Disease: No HIV/AIDS: No Prostate Problems, Kidney Stones Gastroesophageal Reflux, Chronic Constipation Depression Blood Disorders: No Adverse Reaction/Blood Tranf: No (N/A) Family Medical History Reviewed Nursing Family Hx No Pertinent Family Hx Review of Systems ROS-Unable to Obtain: see hpi Constitutional: see HPI, fever Physical Exam Physical Exam Vital Signs Vital Signs - First Documented 09/01/21 09:59 Temp 35.3 Pulse 65 Resp 19 B/P (MAP) 176/84 (114) Pulse Ox 96 O2 Delivery Nasal Cannula O2 Flow Rate 3.00 Capillary Refill : Less Than 3 Seconds Height, Weight, BMI Height: '" Weight: lbs. oz. kg; 32.00 BMI Method: General Appearance: No Apparent Distress, Chronically ill, Obese HEENT: PERRL/EOMI, Moist Mucous Membranes; No Scleral Icterus (L), No Scleral Icterus (R) Neck: Normal Inspection, Supple Respiratory: Lungs Clear, No Accessory Muscle Use, No Respiratory Distress Cardiovascular: Regular Rate, Rhythm, Systolic Murmur Gastrointestinal: Normal Bowel Sounds, Non Tender, Soft Extremity: Other (right thigh painful to touch with taut skin and hard to touch, bounding DP pulse with warm extremities) Neurologic/Psychiatric: Alert, Other (drowsy but answered some questions appropriately) Skin: No Cool, No Mottled Results Results/Procedures Labs Laboratory Tests 09/03/21 07:55 09/04/21 05:56 Patient resulted labs reviewed. Imaging: Reviewed Imaging Report [facility] [place] [place] NAME: DELMY BASS [facility] REC#: [id number] PT STATUS: REG ER : 1935 PHYSICIAN: MICHAEL MOSCOSO MD ADMIT DATE: 09/01/21/ER Draft Date of Exam:09/01/21 FEMUR, RIGHT, 2 VIEWS INDICATION: Right leg pain. TIME OF EXAM: 10:11 AM. TECHNIQUE: Two views of the right femur were obtained. FINDINGS: Alignment at the hip and knee is normal. The femur appears intact. No fractures are seen. There are multiple surgical clips in the soft tissues of the medial right thigh. IMPRESSION: No acute bony abnormality is detected. Dictated on workstation # [id number] Dict: 09/01/21 1036 Trans: 09/01/21 1037 [id number] Interpreted by: KIMMIE CHAVIRA MD Electronically signed by: [facility] [place] NAME: DELMY BASS [facility] REC#: [id number] PT STATUS: REG ER : 1935 PHYSICIAN: MICHAEL MOSCOSO MD ADMIT DATE: 09/01/21/ER Draft Date of Exam:09/01/21 HIP, RIGHT, 2 VIEWS INDICATION: Right hip pain. FINDINGS: Two views of the right hip show normal femoroacetabular alignment. Joint space is maintained. Femoral head and neck are intact. No fractures are identified. IMPRESSION: No acute abnormality is detected. Dictated on workstation # [id number] Dict: 09/01/21 1035 Trans: 09/01/21 1036 [id number] Interpreted by: KIMMIE CHAVIRA MD Electronically signed by: [employer] [place], [place] NAME: DELMY BASS [facility] REC#: [id number] PT STATUS: REG ER : 1935 PHYSICIAN: MICHAEL MOSCOSO MD ADMIT DATE: 09/01/21/ER Draft Date of Exam:09/01/21 CHEST 1 VIEW, AP/PA ONLY INDICATION: Left leg and hip pain. Time Of Exam: 10:16 AM Correlation is made with prior chest from 07/06/2021. Heart size is stable. There are changes of median sternotomy. There is some minimal patchy density in the right base. Otherwise, the lungs are clear. There is no effusion or pneumothorax. The pulmonary vascularity is normal. IMPRESSION: Status post CABG. There is some minimal patchy density right base. This could represent a small area of infiltrate or atelectasis. The study is otherwise unremarkable. Dictated on workstation # [id number] Dict: 09/01/21 1031 Trans: 09/01/21 1034 [facility] [id number] Interpreted by: KIMMIE CHAVIRA MD Electronically signed by: [employer] [place], [place] NAME: DELMY BASS [facility] REC#: [id number] PT STATUS: REG ER : 1935 PHYSICIAN: MICHAEL MOSCOSO MD ADMIT DATE: 09/01/21/ER Draft Date of Exam:09/01/21 CT PELVIS WO PROCEDURE: CT pelvis without contrast. TECHNIQUE: Multiple contiguous axial images were obtained through the pelvis without the use of intravenous contrast. Sagittal and coronal reformations were performed. Auto Exposure Controls were utilized during the CT exam to meet ALARA standards for radiation dose reduction. INDICATION: Hip pain. COMPARISON: CT abdomen and pelvis 11/08/2020. FINDINGS: No intra or extraperitoneal pelvic hemorrhage or fluid collection. No suspicious hyperdensity or volume asymmetry of the pelvic musculature. Femoral heads are directed into the acetabula bilaterally. There is no symphyseal or SI joint diastasis. No abdominal wall hernia or defect. Some chronic venous varicosities in the right groin and lower lateral abdominal subcutaneous fat are noted. There are nonaneurysmal atherosclerotic vascular calcifications. No fracture, bony destruction, or dislocation. No acute post traumatic sequelae identified. IMPRESSION: No pelvic fracture, hemorrhage, or acute appearing abnormalities. Dictated on workstation # [id number] Dict: 09/01/21 1104 Trans: 09/01/21 1109 [id number] Interpreted by: PRAVEEN CAMACHO Electronically signed by: Assessment/Plan Admission Diagnosis Compartment syndrome Admission Status: Inpatient Order (span 2 midnights) Reason for Inpatient Admission: see below Assessment and Plan Compartment syndrome vs thigh contusion Injury concerning for compartment syndrome with elevated pressures on manomet ry Ortho consulted and saw in the ER, stated no indication for surgery I discussed with Dr Paez who recommended neurovascular checks every 6 hours and to call him with any concerning symptoms- nursing communication order placed with these instructions Continue Pain regimen Dementia HTN HLD BPH History of TAVR Anticoagulated on coumadin Continue home meds as able but hold blood thinners today as INR 2.7 Diagnosis/Problems Diagnosis/Problems (1) Chronic anticoagulation (2) Thigh contusion (3) Compartment syndrome of right lower extremity Status: Acute Qualifiers: Encounter type: initial encounter Qualified Codes: T79.A21A - Traumatic compartment syndrome of right lower extremity, initial encounter (4) HLD (hyperlipidemia) Status: Chronic (5) HTN (hypertension) Status: Chronic (6) Obesity Status: Chronic (7) Dementia Status: Chronic (8) BPH (benign prostatic hyperplasia) Status: Acute (9) Afib Status: Chronic SANTOS BRINK MD Sep 01, 2021 13:17
[2021-09-01] MEDS ORDERED: polyethylene glycoL POWDER 17 GM (MIRALAX) PACK PO PRN (15:00)
[2021-09-01] MEDS ORDERED: ONDANSETRON 4 MG/2 ML (SDV) Z0FRAN IV PRN (15:00)
[2021-09-01 16:20] VITALS: BP 144/75
[2021-09-01] MEDS: inSUlin ASPART (NovoLOG) 1 UNIT/0.01 ML (CHARGE PER UNIT) SC SCH ×2 (17:38→20:56)
[2021-09-01 19:40] VITALS: BP 124/79
[2021-09-01] MEDS: DOCUSATE SODIUM 100 MG (COLACE) CAP PO SCH (20:58)
[2021-09-01] MEDS: HYDROmorphone 2 MG/ML VIAL (DILAUDID) IVP PRN (21:45)
[2021-09-02] MEDS: HYDROmorphone 2 MG/ML VIAL (DILAUDID) IVP PRN ×8 (00:37→22:52)
[2021-09-02 00:39] VITALS: BP 143/68
[2021-09-02 04:00] VITALS: BP 151/82
[2021-09-02 05:46] LABS: HEMATOCRIT 36 % (40-54); HEMOGLOBIN 11.7 g/dL (13.3-17.7); MEAN CORPUSCULAR HEMOGLOBIN 30 pg (25-34); MEAN CORPUSCULAR HGB CONC 32 g/dL (32-36); MEAN CORPUSCULAR VOLUME 93 fL (80-99); MEAN PLATELET VOLUME 11.2 fL (9.0-12.2); PLATELET COUNT 250 10^3/uL (130-400); WHITE BLOOD COUNT 19.8 10^3/uL (4.3-11.0)
[2021-09-02 05:59] LABS: INR 2.1 (0.8-1.4); PROTHROMBIN TIME PATIENT 23.7 SEC (12.2-14.7)
[2021-09-02 06:28] LABS: POTASSIUM 4.7 MMOL/L (3.6-5.0)
[2021-09-02 06:29] LABS: CALCIUM 9.2 MG/DL (8.5-10.1)
[2021-09-02 06:34] LABS: CREATININE SERUM 1.3 MG/DL (0.60-1.30)
[2021-09-02] MEDS: inSUlin ASPART (NovoLOG) 1 UNIT/0.01 ML (CHARGE PER UNIT) SC SCH ×4 (06:36→22:24)
--- NOTE | 2021-09-02 08:14 | Consultation - Ortho ---
Consult - Ortho Subjective Date of Exam 09/02/21 Chief Complaint Fall and right thigh/knee pain HPI/Events since last exam Fall yesterday, no fracture by x-rays, significant pain and swelling in thigh, consulted to evaluate thigh Medical, Surgical History see admit H&P Social History see admit H&P Family History see admit H&P Review of Systems not obtained Allergies: Coded Allergies: Sulfa (Sulfonamide Antibiotics) (Verified Allergy, Unknown, UNSURE OF REACTION, 07/06/21) Home Meds Reported Medications Ascorbic Acid/Elderberry Fruit (Elderberry-Vit C 50-100 mg Chw) 1 Each Tab.chew, 1 EACH PO DAILY, TAB 07/07/21 Calcium Carbonate/Mag Oxide/Zn (Mxjgihu-Nrskmnmry-Gqem Tablet) 1 Each Tablet, 1 EACH PO DAILY, TAB 07/07/21 Cholecalciferol (Vitamin D3) (Vitamin D3) 25 Mcg Tablet, 25 MCG PO DAILY, TAB 11/21/20 Ascorbate Calcium (Vitamin C) 500 Mg Tablet, 500 MG PO DAILY, TAB 11/21/20 Tramadol HCl (Tramadol HCl) 50 Mg Tablet, 50 MG PO BID PRN for PAIN-MODERATE (5- 7), TAB 11/21/20 Trazodone HCl (Trazodone HCl) 50 Mg Tablet, 50 MG PO HS, TAB 11/21/20 Paroxetine HCl (Paroxetine HCl) 20 Mg Tablet, 20 MG PO DAILY, TAB 11/21/20 Warfarin Sodium (Warfarin Sodium) 5 Mg Tablet, 10 MG PO SUN,MO,TU,TH,FR, TAB TAKES AT 1700 TAKES 2 (5MG) TABS 11/21/20 Warfarin Sodium (Warfarin Sodium) 5 Mg Tablet, 5 MG PO WED,SAT, TAB TAKES AT 1700 11/21/20 Hydroxyzine Pamoate (Hydroxyzine Pamoate) 25 Mg Capsule, 25 MG PO TID PRN for ANXIETY, CAP 11/21/20 Metoprolol Succinate (Metoprolol Succinate) 25 Mg Tab.er.24h, 25 MG PO DAILY, TAB 06/11/20 Tamsulosin HCl (Flomax) 0.4 Mg Cap, 0.4 MG PO 1800, CAP 06/11/20 Atorvastatin Calcium (Atorvastatin Calcium) 10 Mg Tablet, 10 MG PO DAILY, TAB 05/15/20 Potassium Chloride (Potassium Chloride) 10 Meq Tab.er.prt, 10 MEQ PO DAILY 05/15/20 Furosemide (Furosemide) 20 Mg Tablet, 20 MG PO DAILY, TAB 05/15/20 Finasteride (Finasteride) 5 Mg Tablet, 5 MG PO DAILY, TAB 05/15/20 Objective Exam Right lower extremity: thigh remains swollen, compartments remain compressible (more firm anteriorly and laterally, medially soft), no pain with passive stretch of knee, distal pulses palpable, sensation intact grossly Vital Signs Vital Signs Date Time Temp Pulse Resp B/P (MAP) Pulse Ox O2 Delivery O2 Flow Rate FiO2 09/02/21 07:00 131 09/02/21 04:00 36.7 131 22 151/82 (105) 95 Nasal Cannula 4.00 09/02/21 03:36 95 Nasal Cannula 4.00 09/02/21 01:37 120 09/02/21 00:39 36.6 120 20 143/68 (93) 93 Nasal Cannula 4.00 09/01/21 22:08 95 Nasal Cannula 4.00 09/01/21 21:00 Nasal Cannula 4.00 09/01/21 19:40 37.1 125 16 124/79 (94) 92 Nasal Cannula 4.00 09/01/21 19:00 126 09/01/21 16:59 94 High Flow N/C 4.00 09/01/21 16:34 122 09/01/21 16:20 36.3 110 16 144/75 (98) 92 Nasal Cannula 4.00 09/01/21 14:36 74 16 138/78 94 Nasal Cannula 2.00 09/01/21 10:37 66 14 144/75 93 Nasal Cannula 2.00 09/01/21 09:59 35.3 65 19 176/84 (114) 96 Nasal Cannula 3.00 09/01/21 09:59 35.3 65 19 176/84 (114) 96 Nasal Cannula I & O 09/02/21 07:00 Intake Total 400 ml Balance 400 ml Lab Results Laboratory Tests 09/01/21 10:15: White Blood Count 14.8H, Red Blood Count 4.24L, Hemoglobin 12.6L, Hematocrit 39L , Mean Corpuscular Volume 92, Mean Corpuscular Hemoglobin 30, Mean Corpuscular Hemoglobin Concent 32, Red Cell Distribution Width 13.4, Platelet Count 241, Mean Platelet Volume 11.6, Immature Granulocyte % (Auto) 1, Neutrophils (%) (Auto) 74, Lymphocytes (%) (Auto) 15, Monocytes (%) (Auto) 8, Eosinophils (%) (Auto) 2, Basophils (%) (Auto) 1, Neutrophils # (Auto) 10.9H, Lymphocytes # (Auto) 2.2, Monocytes # (Auto) 1.2H, Eosinophils # (Auto) 0.3, Basophils # (Auto) 0.1, Immature Granulocyte # (Auto) 0.1, Neutrophils % (Manual) 72, Lymphocytes % (Manual) 3, Monocytes % (Manual) 6, Eosinophils % (Manual) 3, Basophils % (Manual) 1, Band Neutrophils 1, Reactive Lymphocytes 14, Blood Morphology Comment NORMAL, Prothrombin Time 29.4H, INR Comment 2.7H, Sodium Level 137, Potassium Level 4.4, Chloride Level 102, Carbon Dioxide Level 24, Anion Gap 11, Blood Urea Nitrogen 17, Creatinine 0.90, Estimat Glomerular Filtration Rate 84, BUN/Creatinine Ratio 19, Glucose Level 175H, Calcium Level 9.4, Corrected Calcium 9.6, Total Bilirubin 0.7, Aspartate Amino Transf (AST/SGOT) 21, Alanine Aminotransferase (ALT/SGPT) 22, Alkaline Phosphatase 69, Total Protein 6.5, Albumin 3.7 09/01/21 16:28: Glucometer 175H 09/01/21 20:40: Glucometer 180H 09/02/21 05:00: White Blood Count 19.8H, Red Blood Count 3.90L, Hemoglobin 11.7L, Hematocrit 36L , Mean Corpuscular Volume 93, Mean Corpuscular Hemoglobin 30, Mean Corpuscular Hemoglobin Concent 32, Red Cell Distribution Width 13.5, Platelet Count 250, Mean Platelet Volume 11.2, Prothrombin Time 23.7H, INR Comment 2.1H, Sodium Level 137, Potassium Level 4.7, Chloride Level 102, Carbon Dioxide Level 21, Anion Gap 14, Blood Urea Nitrogen 29H, Creatinine 1.30, Estimat Glomerular Filtration Rate 54, BUN/Creatinine Ratio 22, Glucose Level 164H, Calcium Level 9.2 09/02/21 05:36: Glucometer 161H Assessment and Plan Assessment Right Thigh Hematoma Problem List Right Thigh Hematoma Plan Ice and elevation to right leg Mobilize with walker Currently not a role for surgical intervention Final Diagonsis Right Thigh Hematoma Level of the visit: Level 3 JUAN PUGH MD Sep 02, 2021 08:14
[2021-09-02 08:26] VITALS: BP 141/86
[2021-09-02] MEDS: DOCUSATE SODIUM 100 MG (COLACE) CAP PO SCH ×2 (09:43→20:09)
--- NOTE | 2021-09-02 10:42 | Physical Therapy Evaluation ---
PT Evaluation-General Medical Diagnosis Admission Date Sep 01, 2021 at 13:37 Medical Diagnosis: Compartment syndrome R LE Onset Date: Sep 01, 2021 Therapy Diagnosis Therapy Diagnosis: Impaired Strength, mobility, ROM Precautions Precautions/Isolations: Fall Prevention, Standard Precautions Weight Bear Status Full Weight Bearing Full Weight Bearing Referral Physician: Gwendolyn Muse MD Reason for Referral: Evaluation/Treatment Medical History Pertinent Medical History: Atrial Fib, CABG, CAD, HTN Current History EMS second degree fall. Tripped over table at home. Reviewed History: Yes Social History Home: Single Level Current Living Status: Alone Entry Into Home: Stairs With Railing PT Steps Into Home: 2 Patient has family that intermittently takes turns staying at patients home. Prior Prior Level of Function SCALE: Activities may be completed with or without assistive devices. 6-Kbiixkhtle-gxktwiu completes the activity by him/herself with no assistance from a helper. 5-Set-up or Clean-up Assistance-helper sets up or cleans up; patient completes activity. [place] assists only prior to or following the activity. 4-Supervision or Touching Assistance-helper provides verbal cues and/or t ouching/steadying and/or contact guard assistance as patient completes activity. Assistance may be provided throughout the activity or intermittently. 3-Partial/Moderate Assistance-helper does LESS THAN HALF the effort. [place] lifts, holds or supports trunk or limbs, but provides less than half the effort. 2-Substantial/Maximal Assistance-helper does MORE THAN HALF the effort. [place] lifts or holds trunk or limbs and provides more than half the effort. 3-Nyqwjgddf-kvxayy does ALL the effort. Patient does none of the effort to complete the activity. Or, the assistance of 2 or more helpers is required for the patient to complete the activity. If activity was not attempted, code reason: 7-Patient Refused. 9-Not Applicable-not attempted and the patient did not perform the activity before the current illness, exacerbation or injury. 10-Not Attempted due to Environmental Limitations-(lack of equipment, weather restraints, etc.). 88-Not Attempted due to Medical Conditions or Safety Concerns. Bed Mobility: 6 Transfers (B,C,W/C): 6 Gait: 6 Stairs: 6 Indoor Mobility (Ambulation): Independent Stairs: Independent Prior Devices Use: None PT Evaluation-Current Subjective Patient appeared very sedated with pain medication and had trouble with alertness and following directions Pain Comment: No pain was verbalized Pt/Family Goals To be independent at home. Objective Patient Orientation: Confused Attachments: Oxygen ROM/Strength ROM Lower Extremities Limited secondary to swelling and pain. Strength Lower Extremities unable to test due to confusion and listlessness Neuromuscular (Tone, Coordination, Reflexes) severely diminished due to medication Sensory Vision: Functional Hearing: Functional Transfers Roll Left to Right (QC): 1 Sit to Lying (QC): 1 Lying to Sitting/Side of Bed(Q: 1 Sit to Stand (QC): 1 dependent of 2 with all mobility with patient standing to FWW x 2 sets Gait Does the Patient Walk?: No and Walking Goal IS indicated Anticipated Mode of Locomotion: Walk Balance Sitting Static: Poor Sitting Dynamic: Poor Standing Static: Poor Standing Dynamic: Poor Treatment Static Sitting balance Assessment/Needs Patient demonstrated very poor sitting balance and bed mobility secondary to weakness. Patient complained of R leg pain upon sitting. Patient very sedated and not safe for OOB activity at this time. Patient had difficulty with following simple direction. Rehab Potential: Guarded PT Assisted Goals Assisted Goals PT Production Control Pegboard Clerk Goals Time Frame: Sep 16, 2021 Roll Left & Right (QC): 3 Sit to Lying (QC): 3 Lying-Sitting on Side/Bed(QC): 3 Sit to Stand (QC): 3 Chair/Xvs-jo-Tzraj Xfer(QC): 3 Toilet Transfer (QC): 3 Does the Patient Walk: No and Walking Goal IS indicated Walk 10 feet (QC): 3 Walk 50ft with 2 Turns (QC): 3 Walk 150 ft (QC): 3 Does the Pt use WC or Scooter?: No PT Plan Problem List Problem List: Activity Tolerance, Functional Strength, Safety, Balance, Gait, Transfer, Bed Mobility, ROM Treatment/Plan Treatment Plan: Continue Plan of Care Treatment Plan: Bed Mobility, Education, Functional Activity Inocencio, Functional Strength, Group Therapy, Gait, Safety, Therapeutic Exercise, Transfers Treatment Duration: Sep 16, 2021 Frequency: 6 times per week Estimated Hrs Per Day: .25 hour per day Patient and/or Family Agrees t: Yes Time/GCodes Time In: 1000 Time Out: 1015 Total Billed Treatment Time: 15 Total Billed Treatment 1 Visit [facility] 15' NENO BAILEY PT Sep 02, 2021 10:42
[2021-09-02 11:24] VITALS: BP 142/82
[2021-09-02] MEDS ORDERED: FLU QUAD HIGH DOSE 240 MCG/0.7 ML 2021-22 (FLUZONE) IM ONE (11:45)
--- NOTE | 2021-09-02 11:53 | Progress Note - Hospitalist ---
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 He tripped over his own feet at home and fell and hit his leg on his coffee table. EMS was summoned due to severe pain. He was given 100mcg of Fentanyl in the ambulance without relief and continued to have pain. Just prior to my exam he got a dose of Dliaudid and was quite drowsy during our conversation and history is somewhat limited by that. Daughter states he is normally pretty healthy but is on Coumadin after a TAVR. He complains of pain in his leg and wanting something to drink and otherwise mostly just slept. Subjective/Events-last exam I saw patient twice today. At first visit he is laying in bed moaning. Had significant pain overnight. Right thigh is still quite tight. Dr Paez entering room as I was exiting. Discussed persistent pain with Dr Paez who was going to exam him at that time. Returned to room due to tachycardia. Patient more alert and actually smiled and laughed when I asked him how he was doing. Remains tachycardiac. I called and consulted his volunteer recruiter Dr Burnette regarding this. Daughter reports increased confusion from baseline. Objective Exam Vital Signs Vital Signs Date Time Temp Pulse Resp B/P (MAP) Pulse Ox O2 Delivery O2 Flow Rate FiO2 09/04/21 11:28 36.9 106 16 135/70 (91) 95 Nasal Cannula 4.00 Capillary Refill : Less Than 3 Seconds General Appearance: No Apparent Distress, Chronically ill, Obese Respiratory: Lungs Clear, No Respiratory Distress Cardiovascular: No Murmur, Tachycardia Gastrointestinal: Normal Bowel Sounds, Non Tender, Soft Extremity: Other (right thigh remains taut, 2+DP on right foot, warm to touch) Neurologic/Psychiatric: Alert, Other (oriented to person and place) Results/Procedures Lab Laboratory Tests 09/04/21 05:56 Patient resulted labs reviewed. Imaging: Reviewed Imaging Report Assessment/Plan Assessment and Plan Assess & Plan/Chief Complaint Compartment syndrome vs thigh contusion and hematoma Injury concerning for compartment syndrome with elevated pressures on manometry Ortho consulted, appreciate recs and monitoring Continue neurovascular checks Continue Pain regimen Will add fentanyl patch to see if we can get better control of pain Tachycardia history of a fib On telemetry - appears sinus Cardiology consulted, appreciate recs Holding Warfarin for now do to above Dementia HTN HLD BPH History of TAVR Anticoagulated on coumadin Continue home meds as able but hold blood thinners today as INR 2.1 Diagnosis/Problems Diagnosis/Problems (1) Chronic anticoagulation (2) Thigh contusion (3) Compartment syndrome of right lower extremity Status: Acute Qualifiers: Encounter type: initial encounter Qualified Codes: T79.A21A - Traumatic compartment syndrome of right lower extremity, initial encounter (4) HLD (hyperlipidemia) Status: Chronic (5) HTN (hypertension) Status: Chronic (6) Obesity Status: Chronic (7) Dementia Status: Chronic (8) BPH (benign prostatic hyperplasia) Status: Acute (9) Afib Status: Chronic SANTOS BRINK MD Sep 02, 2021 11:53
--- NOTE | 2021-09-02 13:21 | Consultation-Cardiology ---
HPI-Cardiology Cardiology Consultation Date of Consultation 09/02/21 Date of Admission Time Seen by Provider: 08:15 Indication: Sinus Tachycardia HPI Patient is an 86 year old male who is currently admitted to [facility] after falling at home. Patient was unable to stand/put weight on his right leg, so he was brought via EMS. Patient has a PMH of HTN, HLD, CABG, TAVR, Afib, CAD, DVT, PE. Patient underwent imaging and no acute fracture was found. Patient has had continued swelling and pain in the extremity. Ortho is on board and monitoring for the development of compartment syndrome. Upon attempting to interview the patient he was found to currently be AMS. Patient's daughter told his RN that he has dementia and when he is under duress he tends to become more incoherent. Patient appears uncomfortable and was complaining about his leg pain. Patient currently has tachycardia that appears to be SR. Patient is on Coumadin for history of paroxysmal afib and s/p TAVR procedure. Patient was unable to answer any questions at this time. Home Medications & Allergies Allergies: Coded Allergies: Sulfa (Sulfonamide Antibiotics) (Verified Allergy, Unknown, UNSURE OF REACTION, 07/06/21) Home Medication List Reviewed: Yes EUG-[id number]-[id number] Hx Patient Social History Marital Status: 2nd Hand Smoke Exposure: Yes Recent Hopitalizations: No Have you traveled recently?: No Alcohol Use?: No Immunizations Up To Date Tetanus Booster (TDap): Less than 5yrs Date of Pneumonia Vaccine: Mar 18, 2020 Date of Influenza Vaccine: Jun 20, 2021 Past Medical History Discussed below Family Medical History Significant Family History: No Pertinent Family Hx Family Medical Hx Non contributory Review of Systems-General Review of Systems ROS-Unable to Obtain: Unable to obtain ROS due to patients currently clinical status Constitutional: other All Other Systems Reviewed Negative Unless Noted: Yes Reviewed Test Results Reviewed Test Results Lab Laboratory Tests Test 09/01/21 16:28 09/01/21 20:40 09/02/21 05:00 09/02/21 05:36 Range/Units Glucometer 175 H 180 H 161 H 70-110 MG/DL White Blood Count 19.8 H 4.3-11.0 10^3/uL Red Blood Count 3.90 L 4.30-5.52 10^6/uL Hemoglobin 11.7 L 13.3-17.7 g/dL Hematocrit 36 L 40-54 % Mean Corpuscular Volume 93 80-99 fL Mean Corpuscular Hemoglobin 30 25-34 pg Mean Corpuscular Hemoglobin Concent 32 32-36 g/dL Red Cell Distribution Width 13.5 10.0-14.5 % Platelet Count 250 130-400 10^3/uL Mean Platelet Volume 11.2 9.0-12.2 fL Prothrombin Time 23.7 H 12.2-14.7 SEC INR Comment 2.1 H 0.8-1.4 Sodium Level 137 135-145 MMOL/L Potassium Level 4.7 3.6-5.0 MMOL/L Chloride Level 102 98-107 MMOL/L Carbon Dioxide Level 21 21-32 MMOL/L Anion Gap 14 5-14 MMOL/L Blood Urea Nitrogen 29 H 7-18 MG/DL Creatinine 1.30 0.60-1.30 MG/DL Estimat Glomerular Filtration Rate 54 BUN/Creatinine Ratio 22 Glucose Level 164 H 70-105 MG/DL Calcium Level 9.2 8.5-10.1 MG/DL Test 09/02/21 11:28 Range/Units Glucometer 180 H 70-110 MG/DL Physical Exam Physical Exam Vital Signs Vital Signs - First Documented 09/01/21 09:59 Temp 35.3 Pulse 65 Resp 19 B/P (MAP) 176/84 (114) Pulse Ox 96 O2 Delivery Nasal Cannula O2 Flow Rate 3.00 Capillary Refill : Less Than 3 Seconds Height, Weight, BMI Height: '" Weight: lbs. oz. kg; 32.71 BMI Method: General Appearance: Chronically ill, Mild Distress, Obese HEENT: PERRL/EOMI; No Scleral Icterus (L), No Scleral Icterus (R) Neck: Normal Inspection, Supple Respiratory: Lungs Clear, No Accessory Muscle Use, No Respiratory Distress Cardiovascular: No Murmur, Normal Peripheral Pulses, Tachycardia Gastrointestinal: Non Tender, Soft Rectal: Deferred Extremity: Pedal Edema, Swelling (RLE), Other (right thigh remains taut, 2+DP on right foot, warm to touch) Neurologic/Psychiatric: Alert, Disoriented Skin: Normal Color, Warm/Dry A/P-Cardiology Admission Diagnosis Hematoma of the right thigh Paroxysmal atrial fibrillation Hypertension Change in mental status Assessment/Plan Thigh Contusion with Hematoma vs Compartment syndrome Currently holding coumadin, INR 2.1, continue to hold Coumadin We discussed the possibility of giving FFP if needed otherwise continue to monitor. Awaiting Ortho recommendation. [id number] score of 6, yearly risk of stroke without oral anticoagulation is 9.8%, currently having active bleed. Continue to hold Coumadin and monitor Tachycardia, Patient has a history of paroxysmal atrial fibrillation, maintained outpatient on coumadin and toprol XL Currently holding coumadin Planning on rate control with IV Lopressor 5mg Q6h Continue to monitor telemetry and evaluate EKG Coronary artery disease History [place] CAB[place] [address] Bradshaw, has been followed by Dr. White and Dr. Samuels after that Cardiac catheterization done July [address] Samuels revealing severe multivessel [place] coronary artery disease. 3 out of 4 patent bypass grafts with the RATLIFF being atretic. 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 Andrew, had complex and prolonged recovery in [facility] secondary to UTI, sepsis, questionable anoxic brain injury Most recent 2D Echo done September 2019 showed LV cavity size is increased and wall thickness is mildly to moderatley increased LV systolic function is mildy decreased with EF 40-45%, diastolic dysfunction. RV systolic function is reduce, LA is mildly dilated measuring 4.8 cm, MV has moderately calcified annulus-sclerosis with mild stenosis. 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 Will continue to evaluate risk vs. benefit of holding coumadin. 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 I reviewed and verified all information documented by the medical student and made modifications to such information, when appropriate. I personally performed the physical exam and medical decision making. I made few modification to the note using italic font Danitza Burnette Sep 02, 2021,16:09 ROHAN MARINELLI Sep 02, 2021 13:21 DANITZA BURNETTE MD Sep 02, 2021 16:08
[2021-09-02] MEDS: fentaNYL PATCH 25 MCG (DURAGESIC) TD SCH (13:31)
[2021-09-02 15:26] VITALS: BP 167/77
[2021-09-02] MEDS: meTOprolol 5 MG/5 ML (LOPRESSOR) VIAL IV SCH ×2 (17:11→23:39)
[2021-09-02 19:07] VITALS: BP 140/75
[2021-09-02] MEDS ORDERED: LORazepam INJ 2 MG/ML (ATIVAN) VIAL IVP PRN (19:30)
[2021-09-02] MEDS ORDERED: HALOPERIDOL 5 MG/ML (HALDOL) VIAL ONE (19:55)
[2021-09-02] MEDS: HALOPERIDOL 5 MG/ML (HALDOL) VIAL IV PRN (19:57)
[2021-09-03] VITALS (7 sets, daily range): BP systolic 119–155; BP diastolic 68–96
[2021-09-03] MEDS: HYDROmorphone 2 MG/ML VIAL (DILAUDID) IVP PRN ×4 (03:08→15:33)
[2021-09-03] MEDS: meTOprolol 5 MG/5 ML (LOPRESSOR) VIAL IV SCH ×4 (05:09→23:50)
[2021-09-03] MEDS: inSUlin ASPART (NovoLOG) 1 UNIT/0.01 ML (CHARGE PER UNIT) SC SCH ×4 (06:36→21:58)
[2021-09-03 08:05] LABS: HEMATOCRIT 33 % (40-54); HEMOGLOBIN 10.6 g/dL (13.3-17.7); MEAN CORPUSCULAR HEMOGLOBIN 30 pg (25-34); MEAN CORPUSCULAR HGB CONC 32 g/dL (32-36); MEAN CORPUSCULAR VOLUME 94 fL (80-99); MEAN PLATELET VOLUME 11.3 fL (9.0-12.2); PLATELET COUNT 251 10^3/uL (130-400); WHITE BLOOD COUNT 21.5 10^3/uL (4.3-11.0)
[2021-09-03 08:21] LABS: INR 1.8 (0.8-1.4)
[2021-09-03 08:23] LABS: CREATININE SERUM 1.25 MG/DL (0.60-1.30)
--- NOTE | 2021-09-03 09:01 | Physical Therapy Daily Note ---
PT Daily Note-Current Subjective Patient lying supine in bed upon PT arrival, difficult to arouse. Patient does open his eyes on 2-3 occasions however when talking he is unable to formulate proper words. Transfers SCALE: Activities may be completed with or without assistive devices. 4-Gqaomszotn-nkgpfme completes the activity by him/herself with no assistance from a helper. 5-Set-up or Clean-up Assistance-helper sets up or cleans up; patient completes activity. [place] assists only prior to or following the activity. 4-Supervision or Touching Assistance-helper provides verbal cues and/or touching/steadying and/or contact guard assistance as patient completes activity. Assistance may be provided throughout the activity or intermittently. 3-Partial/Moderate Assistance-helper does LESS THAN HALF the effort. [place] lifts, holds or supports trunk or limbs, but provides less than half the effort. 2-Substantial/Maximal Assistance-helper does MORE THAN HALF the effort. [place] lifts or holds trunk or limbs and provides more than half the effort. 5-Ozgjxrksb-rsclpx does ALL the effort. Patient does none of the effort to complete the activity. Or, the assistance of 2 or more helpers is required for the patient to complete the activity. If activity was not attempted, code reason: 7-Patient Refused. 9-Not Applicable-not attempted and the patient did not perform the activity before the current illness, exacerbation or injury. 10-Not Attempted due to Environmental Limitations-(lack of equipment, weather restraints, etc.). 88-Not Attempted due to Medical Conditions or Safety Concerns. Roll Left & Right (QC): 1 Sit to Lying (QC): 1 Lying to Sitting/Side of Bed(Q: 1 Weight Bearing Full Weight Bearing Full Weight Bearing Gait Training Does the Patient Walk?: No and Walking Goal IS indicated Exercises Supine Ex: Ankle pumps, Heel Slides, Short Arc Quads, Straight leg raise, Hip abd/add Supine Reps: 10 Treatments Patient performed static sitting balance with max A. Assessment Current Status: Poor Progress Patient tolerated treatment poorly. He has difficulty opening eyes, staying awake and following any commands. Patient performs BLE AAROM/PROM x 10 reps each exercise. He is able to offer minimal assistance, however mostly does not participate. Patient performs all bed mobility and transfers with dependence. Patient yells upon sitting at edge of bed. Patient able to tolerate sitting at edge of bed with mod A but is able to sit upright for a few seconds with CGA. Patient returned to bed post treatment with all needs met, nursing notified, call light in reach and sitter in the room. PT Retirement Goals Insole Tacker Goals PT Retirement Goals Time Frame: Sep 16, 2021 Roll Left & Right (QC): 3 Sit to Lying (QC): 3 Lying-Sitting on Side/Bed(QC): 3 Sit to Stand (QC): 3 Chair/Ibh-hu-Alujg Xfer(QC): 3 Toilet Transfer (QC): 3 Does the Patient Walk: No and Walking Goal IS indicated Walk 10 feet (QC): 3 Walk 50ft with 2 Turns (QC): 3 Walk 150 ft (QC): 3 Does the Pt use WC or Scooter?: No PT Plan Treatment/Plan Treatment Plan: Continue Plan of Care Treatment Plan: Bed Mobility, Education, Functional Activity Inocencio, Functional Strength, Group Therapy, Gait, Safety, Therapeutic Exercise, Transfers Treatment Duration: Sep 16, 2021 Frequency: 6 times per week Estimated Hrs Per Day: .25 hour per day Patient and/or Family Agrees t: Yes Safety Risks/Education Patient Education: Transfer Techniques Teaching Recipient: Patient Teaching Methods: Demonstration, Discussion Response to Teaching: Reinforcement Needed Time/GCodes Time In: 825 Time Out: 850 Total Billed Treatment Time: 25 Total Billed Treatment Visit, JANET, Ex MEGHANA MORA PT Sep 03, 2021 09:01
[2021-09-03] MEDS: DOCUSATE SODIUM 100 MG (COLACE) CAP PO SCH ×2 (09:20→22:12)
--- NOTE | 2021-09-03 09:51 | Progress Note - Ortho ---
Progress Note Subjective Date of Exam 09/03/21 Chief Complaint Right Thigh Pain HPI/Events since last exam Still requiring IV pain medication, verbal this AM and responding appropriately to questions Review of Systems - Allergies: Coded Allergies: Sulfa (Sulfonamide Antibiotics) (Verified Allergy, Unknown, UNSURE OF REACTION, 07/06/21) Home Meds Reported Medications Trazodone HCl (Trazodone HCl) 50 Mg Tablet, 50 MG PO HS, TAB 11/21/20 Paroxetine HCl (Paroxetine HCl) 20 Mg Tablet, 20 MG PO DAILY, TAB 11/21/20 Warfarin Sodium (Warfarin Sodium) 5 Mg Tablet, 10 MG PO SUN,MO,,TH,FR, TAB TAKES AT 1700 TAKES 2 (5MG) TABS 11/21/20 Warfarin Sodium (Warfarin Sodium) 5 Mg Tablet, 5 MG PO WED,SAT, TAB TAKES AT 1700 11/21/20 Hydroxyzine Pamoate (Hydroxyzine Pamoate) 25 Mg Capsule, 25 MG PO TID PRN for ANXIETY, CAP 11/21/20 Metoprolol Succinate (Metoprolol Succinate) 25 Mg Tab.er.24h, 25 MG PO DAILY, TAB 06/11/20 Tamsulosin HCl (Flomax) 0.4 Mg Cap, 0.4 MG PO 1800, CAP 06/11/20 Atorvastatin Calcium (Atorvastatin Calcium) 10 Mg Tablet, 10 MG PO DAILY, TAB 05/15/20 Potassium Chloride (Potassium Chloride) 10 Meq Tab.er.prt, 10 MEQ PO DAILY 05/15/20 Furosemide (Furosemide) 20 Mg Tablet, 20 MG PO DAILY, TAB 05/15/20 Finasteride (Finasteride) 5 Mg Tablet, 5 MG PO DAILY, TAB 05/15/20 Discontinued Reported Medications Tramadol HCl (Tramadol HCl) 50 Mg Tablet, 50 MG PO BID PRN for PAIN-MODERATE (5- 7), TAB 11/21/20 Objective Exam Right Thigh: Remains swollen, remains compressible, less firm today, distal pulses remain palpable and similar to contralateral leg, sensation grossly intact to touch Vital Signs Vital Signs Date Time Temp Pulse Resp B/P (MAP) Pulse Ox O2 Delivery O2 Flow Rate FiO2 09/03/21 07:35 35.9 124 13 155/87 (109) 94 Nasal Cannula 5.00 09/03/21 07:04 95 Nasal Cannula 4.50 09/03/21 07:00 119 09/03/21 05:18 86 09/03/21 04:35 144 09/03/21 04:29 37.2 144 12 145/73 (97) 92 Nasal Cannula 5.00 09/03/21 02:43 94 Nasal Cannula 4.50 09/03/21 01:00 114 09/03/21 00:00 130 12 154/72 (99) 95 High Flow N/C 5.00 09/02/21 21:45 120 09/02/21 19:50 Nasal Cannula 5.00 09/02/21 19:07 35.9 92 22 140/75 (96) 93 Nasal Cannula 5.00 09/02/21 15:26 36.0 104 20 167/77 (107) 92 Nasal Cannula 4.00 09/02/21 13:00 126 09/02/21 11:24 37.2 135 22 142/82 (102) 93 Nasal Cannula 4.00 I & O 09/03/21 07:00 Intake Total 500 ml Output Total 175 ml Balance 325 ml Lab Results Laboratory Tests 09/02/21 11:28: Glucometer 180H 09/02/21 15:19: Glucometer 166H 09/02/21 20:09: Glucometer 172H 09/03/21 07:55: White Blood Count 21.5H, Red Blood Count 3.54L, Hemoglobin 10.6L, Hematocrit 33L , Mean Corpuscular Volume 94, Mean Corpuscular Hemoglobin 30, Mean Corpuscular Hemoglobin Concent 32, Red Cell Distribution Width 13.6, Platelet Count 251, Mean Platelet Volume 11.3, Prothrombin Time 21.0H, INR Comment 1.8H, Sodium Level 138, Potassium Level 5.0, Chloride Level 102, Carbon Dioxide Level 25, Anion Gap 11, Blood Urea Nitrogen 40H, Creatinine 1.25, Estimat Glomerular Filtration Rate 56, BUN/Creatinine Ratio 32, Glucose Level 165H, Calcium Level 9.0 Assessment and Plan Assessment Right Thigh Hematoma Problem List Right Thigh Hematoma Plan Mobilize when able Monitor swelling; beginning to improve Final Diagonsis Right Thigh Hematoma Level of the visit: Level 3 JUAN PUGH MD Sep 03, 2021 09:50
--- NOTE | 2021-09-03 10:46 | Progress Note - Hospitalist ---
Subjective HPI/CC On Admission Date Seen by Provider: Sep 03, 2021 Time Seen by Provider: 10:31 Pt is an 86yoCM with a PMH of dementia, HTN, HLD, BPH, history of TAVR on coumadin who presented to the ER due to a fall. He tripped over his own feet at home and fell and hit his leg on his coffee table. EMS was summoned due to severe pain. He was given 100mcg of Fentanyl in the ambulance without relief and continued to have pain. Just prior to my exam he got a dose of Dliaudid and was quite drowsy during our conversation and history is somewhat limited by that. Daughter states he is normally pretty healthy but is on Coumadin after a TAVR. He complains of pain in his leg and wanting something to drink and otherwise mostly just slept. Subjective/Events-last exam Pt reports doing "terrible" but is unable to tell me how. He has required less pain medication today and Dr Paez is at bedside examining his leg. Did not speak much but actually spoke more coherently than he has in the past two days that I've seen him. Objective Exam Vital Signs Vital Signs Date Time Temp Pulse Resp B/P (MAP) Pulse Ox O2 Delivery O2 Flow Rate FiO2 09/04/21 11:28 36.9 106 16 135/70 (91) 95 Nasal Cannula 4.00 Capillary Refill : Less Than 3 Seconds General Appearance: No Apparent Distress, Chronically ill, Obese Cardiovascular: Regular Rate, Rhythm, No Murmur Gastrointestinal: Normal Bowel Sounds, Non Tender, Soft Extremity: Other (bruising noted on dependent aspect of lateral leg but less tight than yesterday, 2+ pulses remain in foot) Neurologic/Psychiatric: Alert, Disoriented Results/Procedures Lab Laboratory Tests 09/04/21 05:56 Patient resulted labs reviewed. Imaging: Reviewed Imaging Report Assessment/Plan Assessment and Plan Assess & Plan/Chief Complaint Compartment syndrome vs thigh contusion and hematoma Intractable pain Injury concerning for compartment syndrome with elevated pressures on manometry Ortho consulted, appreciate recs and management Continue neurovascular checks to continue, clinically appears slightly better today Continue pain regimen Fentanyl patch added yesterday with less reliance on Dilaudid this morning so far Discussed with Anesthesia about potential epidural or nerve block but they did not think there was a good option for pain control given location Tachycardia history of a fib Continue on telemetry Cardiology consulted, appreciate recs Holding Warfarin for now do to above Continue metoprolol Leukocytosis trending up and may just be reactive from injury but will get cultures and check procal History of UTI with MDRO in November of 2020 Dementia HTN HLD BPH History of TAVR Anticoagulated on coumadin Continue home meds as able but hold blood thinners today as INR 1.8 Discussed need for reversal with Ortho and they stated not indicated Diagnosis/Problems Diagnosis/Problems (1) Chronic anticoagulation (2) Thigh contusion (3) Compartment syndrome of right lower extremity Status: Acute Qualifiers: Encounter type: initial encounter Qualified Codes: T79.A21A - Traumatic compartment syndrome of right lower extremity, initial encounter (4) HLD (hyperlipidemia) Status: Chronic (5) HTN (hypertension) Status: Chronic (6) Obesity Status: Chronic (7) Dementia Status: Chronic (8) BPH (benign prostatic hyperplasia) Status: Acute (9) Afib Status: Chronic SANTOS BRINK MD Sep 03, 2021 10:46
[2021-09-03] MEDS: HALOPERIDOL 5 MG/ML (HALDOL) VIAL IV PRN (13:54)
--- NOTE | 2021-09-03 13:55 | Cardiology Progress Note ---
Subjective Date Seen by Provider: Sep 03, 2021 Time Seen by Provider: 08:00 Subjective/Events-last exam Patient sleeping restlessly upon entering the room. Patient's sitter states that he has been restless and aggravated throughout the morning. Patient unable to answer questions appropriately at the time of this visit. Review of Systems General: Other (Unable to obtain. See HPI) Objective-Cardiology Exam Last Set of Vital Signs Vital Signs 09/03/21 09/03/21 09/03/21 07:35 12:00 14:24 Temp 35.9 Pulse 102 Resp 14 B/P (MAP) 150/82 (104) Pulse Ox 94 O2 Delivery Nasal Cannula O2 Flow Rate 4.50 I&O Intake and Output 09/03/21 00:00 Intake Total 600 ml Output Total 175 ml Balance 425 ml Intake Oral 600 ml Output Urine Total 175 ml # Voids 4 # Urine Diapers 1 General: Mild Distress, Other (disoriented) HEENT: Atraumatic Neck: Supple Lungs: Clear to Auscultation, Normal Air Movement Heart: Normal S1, Normal S2, Other (sinus tachycardia) Abdomen: Normal Bowel Sounds, Soft Extremities: Normal Pulses, Other (bilateral peripheral edema, Right thigh looks the same size as yesterday, still very solid) Skin: No Rashes, No Breakdown Psych/Mental Status: Other (Patient is currently AMS) Results Lab Laboratory Tests 09/03/21 07:55 A/P-Cardiology Admission Diagnosis Hematoma of the right thigh Paroxysmal atrial fibrillation Hypertension Change in mental status Assessment/Plan Thigh Contusion with Hematoma vs Compartment syndrome Currently holding coumadin, patient dorsalis pedis and posterior tibial pulses palpable bilaterally Continue to monitor daily INR. Management per Ortho recommendation [id number] score of 6, yearly risk of stroke without oral anticoagulation is 9.8%, currently having active bleed. Continue to hold Coumadin and monitor Tachycardia, Patient has a history of paroxysmal atrial fibrillation, maintained outpatient on coumadin and toprol XL Currently holding coumadin Planning on rate control with IV Lopressor 5mg Q6h Continue to monitor telemetry and evaluate EKG Coronary artery disease History [place] CAB[place] [address] Bradshaw, has been followed by Dr. White and Dr. Samuels after that Cardiac catheterization done July [address] Samuels revealing severe multivessel [place] coronary artery disease. 3 out of 4 patent bypass grafts with the RATLIFF being atretic. 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 Andrew, had complex and prolonged recovery in [facility] secondary to UTI, sepsis, questionable anoxic brain injury Most recent 2D Echo done September 2019 showed LV cavity size is increased and wall thickness is mildly to moderatley increased LV systolic function is mildy decreased with EF 40-45%, diastolic dysfunction. RV systolic function is reduce, LA is mildly dilated measuring 4.8 cm, MV has moderately calcified annulus-sclerosis with mild stenosis. 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 Will continue to evaluate risk vs. benefit of holding coumadin. 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 I reviewed and verified all information documented by the medical student and made modifications to such information, when appropriate. I personally performed the physical exam and medical decision making. Patient was seen and evaluated, laying down in pain, still having pain in his right thigh Unable to provide full history or review of systems Underlying dementia with worsening mental status at this time Still having sinus tachycardia, tolerating beta-blockers. Danitza Burnette Sep 03, 2021,14:50 ROHAN MARINELLI Sep 03, 2021 13:55 DANITZA BURNETTE MD Sep 03, 2021 14:50
[2021-09-03 15:49] LABS: BILIRUBIN,URINE NEGATIVE (NEGATIVE); CLARITY,URINE CLEAR; COLOR,URINE YELLOW; GLUCOSE, URINE (UA) NEGATIVE (NEGATIVE); KETONES,URINE NEGATIVE (NEGATIVE); LEUKOCYTE ESTERASE ,URINE NEGATIVE (NEGATIVE); NITRITE,URINE NEGATIVE (NEGATIVE); PROTEIN,URINE NEGATIVE (NEGATIVE)
[2021-09-03 16:09] LABS: BACTERIA,URINE NEGATIVE /HPF; RBC,URINE 0-2 /HPF
[2021-09-03] MEDS: TAMSULOSIN 0.4 MG (FLOMAX) CAP PO SCH (17:16)
[2021-09-03] MEDS: traZODone 50 MG (DESYREL) TAB PO SCH (22:12)
[2021-09-04] VITALS: BP 133/71
[2021-09-04] MEDS: HYDROmorphone 2 MG/ML VIAL (DILAUDID) IVP PRN (01:15)
[2021-09-04] MEDS: HALOPERIDOL 5 MG/ML (HALDOL) VIAL IV PRN (02:55)
[2021-09-04 04:00] VITALS: BP 135/78
[2021-09-04] MEDS: meTOprolol 5 MG/5 ML (LOPRESSOR) VIAL IV SCH ×4 (05:29→23:59)
[2021-09-04 06:07] LABS: HEMATOCRIT 30 % (40-54); HEMOGLOBIN 9.7 g/dL (13.3-17.7); MEAN CORPUSCULAR HEMOGLOBIN 30 pg (25-34); MEAN CORPUSCULAR HGB CONC 32 g/dL (32-36); MEAN CORPUSCULAR VOLUME 94 fL (80-99); MEAN PLATELET VOLUME 11.6 fL (9.0-12.2); PLATELET COUNT 250 10^3/uL (130-400); WHITE BLOOD COUNT 17.3 10^3/uL (4.3-11.0)
[2021-09-04 06:10] LABS: POTASSIUM 4.9 MMOL/L (3.6-5.0)
[2021-09-04 06:11] LABS: CALCIUM 9.2 MG/DL (8.5-10.1)
[2021-09-04 06:16] LABS: CREATININE SERUM 1.17 MG/DL (0.60-1.30)
[2021-09-04 06:18] LABS: INR 1.6 (0.8-1.4); PROTHROMBIN TIME PATIENT 19.6 SEC (12.2-14.7)
[2021-09-04] MEDS: inSUlin ASPART (NovoLOG) 1 UNIT/0.01 ML (CHARGE PER UNIT) SC SCH ×4 (06:35→21:06)
[2021-09-04 07:19] VITALS: BP 143/72
--- NOTE | 2021-09-04 08:20 | Progress Note - Ortho ---
Progress Note Subjective Date of Exam 09/04/21 Chief Complaint Right Thigh Pain HPI/Events since last exam somnolent this AM, arouses to voice Review of Systems - Allergies: Coded Allergies: Sulfa (Sulfonamide Antibiotics) (Verified Allergy, Unknown, UNSURE OF REACTION, 07/06/21) Home Meds Reported Medications Trazodone HCl (Trazodone HCl) 50 Mg Tablet, 50 MG PO HS, TAB 11/21/20 Paroxetine HCl (Paroxetine HCl) 20 Mg Tablet, 20 MG PO DAILY, TAB 11/21/20 Warfarin Sodium (Warfarin Sodium) 5 Mg Tablet, 10 MG PO SUN,MO,,TH,FR, TAB TAKES AT 1700 TAKES 2 (5MG) TABS 11/21/20 Warfarin Sodium (Warfarin Sodium) 5 Mg Tablet, 5 MG PO WED,SAT, TAB TAKES AT 1700 11/21/20 Hydroxyzine Pamoate (Hydroxyzine Pamoate) 25 Mg Capsule, 25 MG PO TID PRN for ANXIETY, CAP 11/21/20 Metoprolol Succinate (Metoprolol Succinate) 25 Mg Tab.er.24h, 25 MG PO DAILY, TAB 06/11/20 Tamsulosin HCl (Flomax) 0.4 Mg Cap, 0.4 MG PO 1800, CAP 06/11/20 Atorvastatin Calcium (Atorvastatin Calcium) 10 Mg Tablet, 10 MG PO DAILY, TAB 05/15/20 Potassium Chloride (Potassium Chloride) 10 Meq Tab.er.prt, 10 MEQ PO DAILY 05/15/20 Furosemide (Furosemide) 20 Mg Tablet, 20 MG PO DAILY, TAB 05/15/20 Finasteride (Finasteride) 5 Mg Tablet, 5 MG PO DAILY, TAB 05/15/20 Discontinued Reported Medications Tramadol HCl (Tramadol HCl) 50 Mg Tablet, 50 MG PO BID PRN for PAIN-MODERATE (5- 7), TAB 11/21/20 Objective Exam Right Leg: Significantly improved compressibility on palpation, remains tender, no pain with passive stretch, pulses remain palpable, sensation grossly intact to touch Vital Signs Vital Signs Date Time Temp Pulse Resp B/P (MAP) Pulse Ox O2 Delivery O2 Flow Rate FiO2 09/04/21 08:04 102 09/04/21 07:19 37.0 108 16 143/72 (95) 94 Nasal Cannula 4.00 09/04/21 06:41 09/04/21 04:00 36.9 122 14 135/78 (97) 92 High Flow N/C 4.00 09/04/21 02:23 94 Nasal Cannula 4.00 09/04/21 01:00 107 09/04/21 00:00 36.8 100 12 133/71 (91) 92 High Flow N/C 5.00 09/03/21 21:28 93 Nasal Cannula 4.00 09/03/21 19:40 Nasal Cannula 5.00 09/03/21 19:17 92 Nasal Cannula 4.00 09/03/21 19:11 36.0 97 20 119/71 (87) 93 Nasal Cannula 4.00 09/03/21 19:00 106 09/03/21 15:15 36.0 119 20 121/96 (104) 94 Nasal Cannula 4.00 09/03/21 14:24 94 Nasal Cannula 4.50 09/03/21 13:00 110 09/03/21 12:00 102 14 150/82 (104) 92 Nasal Cannula 3.00 09/03/21 09:00 Nasal Cannula 5.00 I & O 09/04/21 06:59 Intake Total 500 ml Output Total 100 ml Balance 400 ml Lab Results Laboratory Tests 09/03/21 10:41: Glucometer 160H 09/03/21 11:06: Procalcitonin 0.12H 09/03/21 15:23: Glucometer 156H 09/03/21 15:40: Urine Color YELLOW, Urine Clarity CLEAR, Urine pH 6.0, Urine Specific [place] >=1.030, Urine Protein NEGATIVE, Urine Glucose (UA) NEGATIVE, Urine Ketones NEGATIVE, Urine Nitrite NEGATIVE, Urine Bilirubin NEGATIVE, Urine Urobilinogen 0.2, Urine Leukocyte Esterase NEGATIVE, Urine RBC (Auto) 1+H, Urine RBC 0-2, Urine WBC 2-5, Urine Squamous Epithelial Cells NONE, Urine Renal Epithelial Cells NONE, Urine Crystals NONE, Urine Bacteria NEGATIVE, Urine Casts NONE, Urine Mucus SMALLH, Urine Culture Indicated NO 09/04/21 05:26: Glucometer 147H 09/04/21 05:56: White Blood Count 17.3H, Red Blood Count 3.19L, Hemoglobin 9.7L, Hematocrit 30L, Mean Corpuscular Volume 94, Mean Corpuscular Hemoglobin 30, Mean Corpuscular Hemoglobin Concent 32, Red Cell Distribution Width 13.6, Platelet Count 250, Mean Platelet Volume 11.6, Prothrombin Time 19.6H, INR Comment 1.6H, Sodium Level 140, Potassium Level 4.9, Chloride Level 102, Carbon Dioxide Level 26, Anion Gap 12, Blood Urea Nitrogen 47H, Creatinine 1.17, Estimat Glomerular Filtration Rate 61, BUN/Creatinine Ratio 40, Glucose Level 148H, Calcium Level 9.2 Assessment and Plan Assessment Right Thigh Hematoma Problem List Right Thigh Hematoma Plan Mobilize Pain Control Final Diagonsis Right Thigh Hematoma Level of the visit: Level 3 JUAN PUGH MD Sep 04, 2021 08:20
[2021-09-04] MEDS: PARoxetine 20 MG (PAXIL) TAB PO SCH (08:24)
[2021-09-04] MEDS: FUROSEMIDE 20 MG (LASIX) TAB PO SCH (08:24)
[2021-09-04] MEDS: DOCUSATE SODIUM 100 MG (COLACE) CAP PO SCH ×2 (08:24→20:37)
[2021-09-04] MEDS: FINASTERIDE (PROSCAR) 5 MG TAB PO SCH (08:24)
[2021-09-04] MEDS: AtorvaSTATin TABLET 10 MG TABLET PO SCH (08:24)
--- NOTE | 2021-09-04 08:42 | Cardiology Progress Note ---
Subjective Date Seen by Provider: Sep 04, 2021 Time Seen by Provider: 08:40 Subjective/Events-last exam Patient is laying down in bed. Less pain today, slightly better response Review of Systems General: Other (Unable to provide review of system) Objective-Cardiology Exam Last Set of Vital Signs Vital Signs 09/04/21 09/04/21 07:19 08:04 Temp 37.0 Pulse 102 Resp 16 B/P (MAP) 143/72 (95) Pulse Ox 94 O2 Delivery Nasal Cannula O2 Flow Rate 4.00 I&O Intake and Output 09/04/21 00:00 Intake Total 500 ml Output Total 100 ml Balance 400 ml Intake Oral 500 ml Output Urine Total 100 ml # Voids 10 General: Alert, Mild Distress, Other (disoriented) HEENT: Atraumatic Neck: Supple Lungs: Clear to Auscultation, Normal Air Movement Heart: Normal S1, Normal S2, Other (sinus tachycardia) Abdomen: Normal Bowel Sounds, Soft Extremities: No Clubbing, Normal Pulses, Other (bilateral peripheral edema, Right thigh looks the same size as yesterday, still very solid) Skin: No Rashes, No Breakdown Psych/Mental Status: Mood NL, Other (Patient is currently AMS) Results Lab Laboratory Tests 09/04/21 05:56 A/P-Cardiology Admission Diagnosis Hematoma of the right thigh Paroxysmal atrial fibrillation Hypertension Change in mental status Assessment/Plan Thigh Contusion with Hematoma vs Compartment syndrome Currently holding coumadin, patient dorsalis pedis and posterior tibial pulses palpable bilaterally Continue to monitor daily INR. Management per Ortho recommendation [id number] score of 6, yearly risk of stroke without oral anticoagulation is 9.8%, currently having active bleed. Continue to hold Coumadin and monitor Tachycardia, Patient has a history of paroxysmal atrial fibrillation, maintained outpatient on coumadin and toprol XL Currently holding coumadin Planning on rate control with IV Lopressor 5mg Q6h Continue to monitor telemetry and evaluate EKG Coronary artery disease History [place] CAB[place] [address] Bradshaw, has been followed by Dr. White and Dr. Samuels after that Cardiac catheterization done July [address] Samuels revealing severe multivessel [place] coronary artery disease. 3 out of 4 patent bypass grafts with the RATLIFF being atretic. 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 Andrew, had complex and prolonged recovery in [facility] secondary to UTI, sepsis, questionable anoxic brain injury Most recent 2D Echo done September 2019 showed LV cavity size is increased and wall thickness is mildly to moderatley increased LV systolic function is mildy decreased with EF 40-45%, diastolic dysfunction. RV systolic function is reduce, LA is mildly dilated measuring 4.8 cm, MV has moderately calcified annulus-sclerosis with mild stenosis. 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 Will continue to evaluate risk vs. benefit of holding coumadin. 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
[2021-09-04 11:28] VITALS: BP 135/70
--- NOTE | 2021-09-04 12:05 | Physical Therapy Progress Note ---
Therapy Progress Note Patient continues to be listless and unable to actively participate with therapy. PT will attempt in NENO Wells PT Sep 04, 2021 12:05
[2021-09-04] MEDS: polyethylene glycoL POWDER 17 GM (MIRALAX) PACK PO SCH ×2 (12:15→20:37)
[2021-09-04] MEDS ORDERED: HALOPERIDOL 5 MG/ML (HALDOL) VIAL IV PRN (12:15)
--- NOTE | 2021-09-04 12:15 | Progress Note - Hospitalist ---
Subjective HPI/CC On Admission Date Seen by Provider: Sep 04, 2021 Time Seen by Provider: 09:00 Pt is an 86yoCM with a PMH of dementia, HTN, HLD, BPH, history of TAVR on coumadin who presented to the ER due to a fall. He tripped over his own feet at home and fell and hit his leg on his coffee table. EMS was summoned due to severe pain. He was given 100mcg of Fentanyl in the ambulance without relief and continued to have pain. Just prior to my exam he got a dose of Dliaudid and was quite drowsy during our conversation and history is somewhat limited by that. Daughter states he is normally pretty healthy but is on Coumadin after a TAVR. He complains of pain in his leg and wanting something to drink and otherwise mostly just slept. Subjective/Events-last exam Pt slightly more alert today and asked me how I was doing. No specific complaints. Objective Exam Vital Signs Vital Signs Date Time Temp Pulse Resp B/P (MAP) Pulse Ox O2 Delivery O2 Flow Rate FiO2 09/04/21 11:28 36.9 106 16 135/70 (91) 95 Nasal Cannula 4.00 Capillary Refill : Less Than 3 Seconds General Appearance: No Apparent Distress, Chronically ill, Obese Respiratory: Lungs Clear, No Respiratory Distress Cardiovascular: Regular Rate, Rhythm, No Murmur Extremity: Other (right thigh with bruising laterally but improved tautness ) Neurologic/Psychiatric: Alert, Other (drowsy) Results/Procedures Lab Laboratory Tests 09/04/21 05:56 Patient resulted labs reviewed. Imaging: Reviewed Imaging Report Assessment/Plan Assessment and Plan Assess & Plan/Chief Complaint Compartment syndrome vs thigh contusion and hematoma Intractable pain Injury concerning for compartment syndrome with elevated pressures on manometry on arrival but improved Ortho consulted, appreciate recs and management Neurovascular checks to continue, clinically appears better today with good pulses still Continue pain regimen Fentanyl patch seems to be improving pain but he is still quite drowsy Discussed with Anesthesia about potential epidural or nerve block but they did not think there was a good option for pain control given location Tachycardia- improved history of a fib Continue on telemetry Cardiology consulted, appreciate recs Holding Warfarin for now do to above Continue metoprolol Leukocytosis No evidence of infection, trending down now History of UTI with MDRO in November of 2020 Dementia HTN HLD BPH History of TAVR Anticoagulated on coumadin Continue home meds as able but hold blood thinners today as INR 1.8 Discussed need for reversal with Ortho and they stated not indicated Diagnosis/Problems Diagnosis/Problems (1) Chronic anticoagulation (2) Thigh contusion (3) Compartment syndrome of right lower extremity Status: Acute Qualifiers: Encounter type: initial encounter Qualified Codes: T79.A21A - Traumatic compartment syndrome of right lower extremity, initial encounter (4) HLD (hyperlipidemia) Status: Chronic (5) HTN (hypertension) Status: Chronic (6) Obesity Status: Chronic (7) Dementia Status: Chronic (8) BPH (benign prostatic hyperplasia) Status: Acute (9) Afib Status: Chronic SANTOS BRINK MD Sep 04, 2021 12:15
[2021-09-04 15:53] VITALS: BP 136/72
[2021-09-04] MEDS: TAMSULOSIN 0.4 MG (FLOMAX) CAP PO SCH (18:19)
[2021-09-04 20:00] VITALS: BP 163/80
[2021-09-04] MEDS: traZODone 50 MG (DESYREL) TAB PO SCH (20:37)
[2021-09-04] MEDS: meTOprolol TARTRATE 50 MG (LOPRESSOR) TAB PO SCH (20:37)
[2021-09-05] VITALS (7 sets, daily range): BP systolic 109–145; BP diastolic 60–80
[2021-09-05 06:12] LABS: HEMATOCRIT 31 % (40-54); HEMOGLOBIN 9.6 g/dL (13.3-17.7); MEAN CORPUSCULAR HEMOGLOBIN 30 pg (25-34); MEAN CORPUSCULAR HGB CONC 31 g/dL (32-36); MEAN CORPUSCULAR VOLUME 97 fL (80-99); MEAN PLATELET VOLUME 11.4 fL (9.0-12.2); PLATELET COUNT 286 10^3/uL (130-400); WHITE BLOOD COUNT 12.9 10^3/uL (4.3-11.0)
[2021-09-05] MEDS: meTOprolol 5 MG/5 ML (LOPRESSOR) VIAL IV SCH ×3 (06:12→17:38)
[2021-09-05] MEDS: inSUlin ASPART (NovoLOG) 1 UNIT/0.01 ML (CHARGE PER UNIT) SC SCH ×4 (06:12→22:28)
[2021-09-05 06:28] LABS: INR 1.5 (0.8-1.4); PROTHROMBIN TIME PATIENT 18.2 SEC (12.2-14.7)
[2021-09-05 06:47] LABS: CALCIUM 9.3 MG/DL (8.5-10.1); CREATININE SERUM 1.19 MG/DL (0.60-1.30); POTASSIUM 4.4 MMOL/L (3.6-5.0)
--- NOTE | 2021-09-05 08:54 | Cardiology Progress Note ---
Subjective Date Seen by Provider: Sep 05, 2021 Time Seen by Provider: 08:49 Subjective/Events-last exam Patient sitting up in bed comfortably, able to answer questions about pain in his leg. Unable to obtain a full review of systems from the patient at this time. Review of Systems General: Other (Lethargic) Musculoskeletal: leg pain Objective-Cardiology Exam Last Set of Vital Signs Vital Signs 09/05/21 09/05/21 07:31 10:53 Temp 36.8 Pulse 86 Resp 16 B/P (MAP) 126/80 (95) Pulse Ox 93 O2 Delivery Nasal Cannula O2 Flow Rate 4.00 I&O Intake and Output 09/05/21 00:00 Intake Total 670 ml Output Total 100 ml Balance 570 ml Intake Oral 670 ml Output Urine Total 100 ml # Voids 9 General: Alert, No Acute Distress, Other (disoriented) HEENT: Atraumatic, PERRLA Neck: Supple Lungs: Clear to Auscultation, Normal Air Movement Heart: Regular Rate, Normal S1, Normal S2 Abdomen: Normal Bowel Sounds, Soft Extremities: No Clubbing, Normal Pulses, Other (bilateral peripheral edema, Right thigh swelling is improving) Skin: No Rashes, No Breakdown Psych/Mental Status: Mood NL, Other (Patient's mental status is improved, but still disoriented ) Results Lab Laboratory Tests 09/05/21 05:57 A/P-Cardiology Admission Diagnosis Hematoma of the right thigh Paroxysmal atrial fibrillation Hypertension Change in mental status Assessment/Plan Thigh Contusion with Hematoma vs Compartment syndrome Currently holding coumadin, patient dorsalis pedis and posterior tibial pulses palpable bilaterally Continue to monitor daily INR. Management per Ortho recommendation [id number] score of 6, yearly risk of stroke without oral anticoagulation is 9.8%, currently having active bleed. Continue to hold Coumadin and monitor Tachycardia, resolved, Patient has a history of paroxysmal atrial fibrillation, maintained outpatient on coumadin and toprol XL Currently holding coumadin Planning on rate control with IV Lopressor 5mg Q6h Continue to monitor telemetry and evaluate EKG Coronary artery disease History [place] CAB[place] [address] Bradshaw, has been followed by Dr. White and Dr. Samuels after that Cardiac catheterization done July [address] Samuels revealing severe multivessel [place] coronary artery disease. 3 out of 4 patent bypass grafts with the RATLIFF being atretic. 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 Andrew, had complex and prolonged recovery in [facility] secondary to UTI, sepsis, questionable anoxic brain injury Most recent 2D Echo done September 2019 showed LV cavity size is increased and wall thickness is mildly to moderatley increased LV systolic function is mildy decreased with EF 40-45%, diastolic dysfunction. RV systolic function is reduce, LA is mildly dilated measuring 4.8 cm, MV has moderately calcified annulus-sclerosis with mild stenosis. 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 Will continue to evaluate risk vs. benefit of holding coumadin. 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 I reviewed and verified all information documented by the medical student and made modifications to such information, when appropriate. I personally performed the physical exam and medical decision making. Patient is laying down in bed, did not provide much history Still having swelling in his thigh, palpable dorsalis pedis pulse. Continue to monitor daily INR. Danitza Burnette Sep 05, 2021,11:32 ROHAN MARINELLI Sep 05, 2021 08:54 DANITZA BURNETTE MD Sep 05, 2021 11:32
[2021-09-05] MEDS: FINASTERIDE (PROSCAR) 5 MG TAB PO SCH (09:02)
[2021-09-05] MEDS: FUROSEMIDE 20 MG (LASIX) TAB PO SCH (09:02)
[2021-09-05] MEDS: polyethylene glycoL POWDER 17 GM (MIRALAX) PACK PO SCH ×2 (09:02→20:43)
[2021-09-05] MEDS: PARoxetine 20 MG (PAXIL) TAB PO SCH (09:02)
[2021-09-05] MEDS: DOCUSATE SODIUM 100 MG (COLACE) CAP PO SCH ×2 (09:02→20:43)
[2021-09-05] MEDS: meTOprolol TARTRATE 50 MG (LOPRESSOR) TAB PO SCH ×2 (09:02→20:44)
[2021-09-05] MEDS: AtorvaSTATin TABLET 10 MG TABLET PO SCH (09:02)
--- NOTE | 2021-09-05 10:09 | Progress Note - Hospitalist ---
Subjective HPI/CC On Admission Date Seen by Provider: Sep 05, 2021 Time Seen by Provider: 10:04 Pt is an 86yoCM with a PMH of dementia, HTN, HLD, BPH, history of TAVR on coumadin who presented to the ER due to a fall. He tripped over his own feet at home and fell and hit his leg on his coffee table. EMS was summoned due to severe pain. He was given 100mcg of Fentanyl in the ambulance without relief and continued to have pain. Just prior to my exam he got a dose of Dliaudid and was quite drowsy during our conversation and history is somewhat limited by that. Daughter states he is normally pretty healthy but is on Coumadin after a TAVR. He complains of pain in his leg and wanting something to drink and otherwise mostly just slept. Subjective/Events-last exam Pt reports doing "ok.' Denied pain. When I told him that was the most he had talked to me this admission he smiled and said "I'm so sorry about that." Objective Exam Vital Signs Vital Signs Date Time Temp Pulse Resp B/P (MAP) Pulse Ox O2 Delivery O2 Flow Rate FiO2 09/05/21 09:00 96 Nasal Cannula 4.00 09/05/21 07:31 36.8 86 16 126/80 (95) Capillary Refill : Less Than 3 Seconds General Appearance: No Apparent Distress, WD/WN Respiratory: Lungs Clear, No Respiratory Distress Cardiovascular: Regular Rate, Rhythm, No Murmur Neurologic/Psychiatric: Alert, Other (mentation improving) Results/Procedures Lab Laboratory Tests 09/05/21 05:57 Patient resulted labs reviewed. Imaging: Reviewed Imaging Report Assessment/Plan Assessment and Plan Assess & Plan/Chief Complaint Compartment syndrome vs thigh contusion and hematoma Intractable pain Injury concerning for compartment syndrome with elevated pressures on manometry on arrival but improved and much less taut today Ortho consulted, appreciate recs and management Neurovascular checks to continue, clinically appears better still with good pulses still Continue pain regimen Fentanyl patch in place, has not needed Dilaudid in over 24 hours so will DC and add orals for breakthrough pain Discussed with Anesthesia about potential epidural or nerve block but they did not think there was a good option for pain control given location Tachycardia- improved history of a fib Continue on telemetry Cardiology consulted, appreciate recs Holding Warfarin for now due hematoma Continue metoprolol Leukocytosis No evidence of infection, trending down now History of UTI with MDRO in November of 2020 Dementia HTN HLD BPH History of TAVR Anticoagulated on coumadin Continue home meds as able but hold blood thinners today as INR 1.5 Discussed need for reversal with Ortho and they stated not indicated Diagnosis/Problems Diagnosis/Problems (1) Chronic anticoagulation (2) Thigh contusion (3) Compartment syndrome of right lower extremity Status: Acute Qualifiers: Encounter type: initial encounter Qualified Codes: T79.A21A - Traumatic compartment syndrome of right lower extremity, initial encounter (4) HLD (hyperlipidemia) Status: Chronic (5) HTN (hypertension) Status: Chronic (6) Obesity Status: Chronic (7) Dementia Status: Chronic (8) BPH (benign prostatic hyperplasia) Status: Acute (9) Afib Status: Chronic SANTOS BRINK MD Sep 05, 2021 10:09
[2021-09-05] MEDS ORDERED: HYDROcodone/APAP 5 MG/325 MG (LORTAB) TAB PO PRN (10:15)
--- NOTE | 2021-09-05 11:33 | Physical Therapy Daily Note ---
PT Daily Note-Current Subjective Patient was not awake or alert upon entry. Patient had very little verbal communication with PT Pain Comment: Patient complained of R hip pain with movement, but no rating was given. Mental Status Patient Orientation: Listless (did not open his eyes) Attachments: Oxygen, [place] Catheter Telemetry Transfers SCALE: Activities may be completed with or without assistive devices. 3-Eirfhzrptu-jezgpow completes the activity by him/herself with no assistance from a helper. 5-Set-up or Clean-up Assistance-helper sets up or cleans up; patient completes activity. [place] assists only prior to or following the activity. 4-Supervision or Touching Assistance-helper provides verbal cues and/or touching/steadying and/or contact guard assistance as patient completes activity. Assistance may be provided throughout the activity or intermittently. 3-Partial/Moderate Assistance-helper does LESS THAN HALF the effort. [place] lifts, holds or supports trunk or limbs, but provides less than half the effort. 2-Substantial/Maximal Assistance-helper does MORE THAN HALF the effort. [place] lifts or holds trunk or limbs and provides more than half the effort. 2-Wkncxioff-uwmfbm does ALL the effort. Patient does none of the effort to complete the activity. Or, the assistance of 2 or more helpers is required for the patient to complete the activity. If activity was not attempted, code reason: 7-Patient Refused. 9-Not Applicable-not attempted and the patient did not perform the activity before the current illness, exacerbation or injury. 10-Not Attempted due to Environmental Limitations-(lack of equipment, weather restraints, etc.). 88-Not Attempted due to Medical Conditions or Safety Concerns. Roll Left & Right (QC): 1 Sit to Lying (QC): 1 Lying to Sitting/Side of Bed(Q: 1 Poor balance/unable to maintain sitting EOB without dependent assist Weight Bearing Full Weight Bearing Full Weight Bearing Gait Training Does the Patient Walk?: No and Walking Goal IS indicated Wheelchair Training Does the Pt Use a Wheelchair?: No Type of Wheelchair: N/A Exercises Passive: Hip Flexion, Knee Flexion, DF 2x10 reps each Treatments Bed mobility, ROM Assessment Current Status: Poor Progress Patient showed lack of alertness during treatment and could not verbally communicate with PT except screaming about pain with R Leg region upon [id number]. Patient was dependent assist 2 for sitting balance, but intermittently could remain sitting with minimal assistance for very brief bouts. Did not attempt to stand today due to safety concerns with balance. During ROM activities, Patient had severe limited PROM, with Hip flexion, knee flexion, and DF. Patient appeared to exhibit resistance with passive knee flexion. Patient was left in bed with alarm activated and call light near by and all needs met. PT Mcfp Goals Body Maker Goals PT Body Maker Goals Time Frame: Sep 16, 2021 Roll Left & Right (QC): 3 Sit to Lying (QC): 3 Lying-Sitting on Side/Bed(QC): 3 Sit to Stand (QC): 3 Chair/Pgy-vu-Luqdc Xfer(QC): 3 Toilet Transfer (QC): 3 Does the Patient Walk: No and Walking Goal IS indicated Walk 10 feet (QC): 3 Walk 50ft with 2 Turns (QC): 3 Walk 150 ft (QC): 3 Does the Pt use WC or Scooter?: No PT Plan Problem List Problem List: Activity Tolerance, Functional Strength, Safety, Balance, Gait, Transfer, Bed Mobility, ROM Treatment/Plan Treatment Plan: Continue Plan of Care Treatment Plan: Bed Mobility, Education, Functional Activity Inocencio, Functional Strength, Group Therapy, Gait, Safety, Therapeutic Exercise, Transfers Treatment Duration: Sep 16, 2021 Frequency: 6 times per week Estimated Hrs Per Day: .25 hour per day Patient and/or Family Agrees t: Yes Time/GCodes Time In: 1050 Time Out: 1100 Total Billed Treatment Time: 10 Total Billed Treatment 1 visit EX 10min NENO BAILEY PT Sep 05, 2021 11:33
[2021-09-05] MEDS: fentaNYL PATCH 25 MCG (DURAGESIC) TD SCH (11:47)
[2021-09-05] MEDS ORDERED: FENTANYL PATCH REMOVAL TP SCH (11:59)
[2021-09-05] MEDS: TAMSULOSIN 0.4 MG (FLOMAX) CAP PO SCH (17:38)
[2021-09-05] MEDS: traZODone 50 MG (DESYREL) TAB PO SCH (20:43)
[2021-09-06] MEDS: meTOprolol 5 MG/5 ML (LOPRESSOR) VIAL IV SCH ×4 (00:43→17:39)
[2021-09-06 03:56] VITALS: BP 135/79
[2021-09-06] MEDS: inSUlin ASPART (NovoLOG) 1 UNIT/0.01 ML (CHARGE PER UNIT) SC SCH ×4 (05:18→20:28)
[2021-09-06 05:45] LABS: HEMATOCRIT 31 % (40-54); HEMOGLOBIN 9.7 g/dL (13.3-17.7); MEAN CORPUSCULAR HEMOGLOBIN 30 pg (25-34); MEAN CORPUSCULAR HGB CONC 32 g/dL (32-36); MEAN CORPUSCULAR VOLUME 96 fL (80-99); MEAN PLATELET VOLUME 11.3 fL (9.0-12.2); PLATELET COUNT 296 10^3/uL (130-400); WHITE BLOOD COUNT 11.8 10^3/uL (4.3-11.0)
[2021-09-06 05:57] LABS: INR 1.4 (0.8-1.4); PROTHROMBIN TIME PATIENT 17.2 SEC (12.2-14.7)
[2021-09-06 05:58] LABS: POTASSIUM 4.3 MMOL/L (3.6-5.0)
[2021-09-06 05:59] LABS: CALCIUM 9.4 MG/DL (8.5-10.1)
[2021-09-06 06:04] LABS: CREATININE SERUM 1.16 MG/DL (0.60-1.30)
[2021-09-06 08:25] VITALS: BP 132/82
[2021-09-06] MEDS: PARoxetine 20 MG (PAXIL) TAB PO SCH (08:30)
[2021-09-06] MEDS: polyethylene glycoL POWDER 17 GM (MIRALAX) PACK PO SCH ×2 (08:30→20:40)
[2021-09-06] MEDS: AtorvaSTATin TABLET 10 MG TABLET PO SCH (08:30)
[2021-09-06] MEDS: FINASTERIDE (PROSCAR) 5 MG TAB PO SCH (08:30)
[2021-09-06] MEDS: FUROSEMIDE 20 MG (LASIX) TAB PO SCH (08:30)
[2021-09-06] MEDS: DOCUSATE SODIUM 100 MG (COLACE) CAP PO SCH ×2 (08:30→20:40)
[2021-09-06] MEDS: meTOprolol TARTRATE 50 MG (LOPRESSOR) TAB PO SCH ×2 (08:30→20:40)
--- NOTE | 2021-09-06 09:25 | Progress Note - Hospitalist ---
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 He tripped over his own feet at home and fell and hit his leg on his coffee table. EMS was summoned due to severe pain. He was given 100mcg of Fentanyl in the ambulance without relief and continued to have pain. Just prior to my exam he got a dose of Dliaudid and was quite drowsy during our conversation and history is somewhat limited by that. Daughter states he is normally pretty healthy but is on Coumadin after a TAVR. He complains of pain in his leg and wanting something to drink and otherwise mostly just slept. Subjective/Events-last exam Pt laying in bed. Sanjay video playing on TV and when I asked if he was getting his prayers in he said yes. Otherwise didn't offer much in conversation. Objective Exam Vital Signs Vital Signs Date Time Temp Pulse Resp B/P (MAP) Pulse Ox O2 Delivery O2 Flow Rate FiO2 09/06/21 09:00 96 Nasal Cannula 4.00 09/06/21 08:25 36.7 86 12 132/82 (99) Capillary Refill : Less Than 3 Seconds General Appearance: No Apparent Distress, Chronically ill, Obese Respiratory: Lungs Clear, No Respiratory Distress Cardiovascular: Regular Rate, Rhythm, No Murmur Gastrointestinal: Normal Bowel Sounds, Non Tender, Soft Extremity: Other (decreased edema and tautness of skin on right thigh, 2+ pulses distally) Neurologic/Psychiatric: Alert, Other (drowsy) Results/Procedures Lab Laboratory Tests 09/06/21 05:13 Patient resulted labs reviewed. Imaging: Reviewed Imaging Report Assessment/Plan Assessment and Plan Assess & Plan/Chief Complaint Compartment syndrome vs thigh contusion and hematoma Intractable pain Injury concerning for compartment syndrome with elevated pressures on manometry on arrival but improving daily Ortho consulted, appreciate recs and management Neurovascular checks, clinically appears better still with good pulses still Continue pain regimen Fentanyl patch in place, hydrocodone for breakthrough pain Discussed with Anesthesia about potential epidural or nerve block but they did not think there was a good option for pain control given location Tachycardia- improved history of a fib Continue on telemetry Cardiology consulted, appreciate recs Holding Warfarin for now due hematoma May be able to restart it soon with improving exam on leg Continue metoprolol Leukocytosis No evidence of infection, trending down still History of UTI with MDRO in November of 2020 Dementia HTN HLD BPH History of TAVR Anticoagulated on coumadin Continue home meds as able but hold blood thinners today as INR 1.5 Continues to be altered though very slowly improving, unsure if we are approaching a new baseline or if still hopeful for improvement since off IV pain meds for 2 days now WIll likely need placement upon discharge Diagnosis/Problems Diagnosis/Problems (1) Chronic anticoagulation (2) Thigh contusion (3) Compartment syndrome of right lower extremity Status: Acute Qualifiers: Encounter type: initial encounter Qualified Codes: T79.A21A - Traumatic compartment syndrome of right lower extremity, initial encounter (4) HLD (hyperlipidemia) Status: Chronic (5) HTN (hypertension) Status: Chronic (6) Obesity Status: Chronic (7) Dementia Status: Chronic (8) BPH (benign prostatic hyperplasia) Status: Acute (9) Afib Status: Chronic SANTOS BRINK MD Sep 06, 2021 09:25
--- NOTE | 2021-09-06 11:15 | Physical Therapy Progress Note ---
Therapy Progress Note Pt supine in bed upon arrival to room, eyes open but does not engage in conversation. Asked pt multiple times if he would like to work with therapy, in which he closed his eyes and acted as if he was sleeping and snoring. Will follow up on Wednesday. 1 visit ([id number]) MILTON IGNACIO PT Sep 06, 2021 11:15
[2021-09-06 12:05] VITALS: BP 124/77
--- NOTE | 2021-09-06 16:07 | Progress Note - Cardiology ---
Cardiology SOAP Progress Note Subjective: Does not answer any questions Appear unable to engage in meaningful conversation Does not report any symptoms Objective: I&O/Vital Signs 09/06/21 09/06/21 09/06/21 09/06/21 07:00 08:25 09:00 12:05 Temp 36.7 36.9 Pulse 85 86 138 Resp 12 12 B/P (MAP) 132/82 (99) 124/77 (93) Pulse Ox 95 96 94 O2 Delivery Nasal Cannula Nasal Cannula Nasal Cannula O2 Flow Rate 4.00 4.00 4.00 09/06/21 13:00 Pulse 135 09/06/21 00:00 Intake Total 900 ml Balance 900 ml Constitutional: No AAO x 3; well-developed, well-nourished, other (mildly restless) Respiratory: No accessory muscle use; other (fair ) Cardiovascular: regular rate-rhythm, S1 and S2, systolic murmur (soft DONALD at card base) Gastrointestional: No tender; soft; No guarding, No rebound; audible bowel sounds Extremities: No clubbing, No cyanosis, No significant edema Neurologic/Psychiatric: No oriented x 3; other (appears to move all limbs equally) Skin: No rash on exposed areas, No ulcerations on exposed areas Results/Procedures: Labs Laboratory Tests 09/05/21 17:15: Glucometer 131H 09/05/21 21:05: Glucometer 129H 09/06/21 05:12: Glucometer 124H 09/06/21 05:13: White Blood Count 11.8H, Red Blood Count 3.20L, Hemoglobin 9.7L, Hematocrit 31L, Mean Corpuscular Volume 96, Mean Corpuscular Hemoglobin 30, Mean Corpuscular Hemoglobin Concent 32, Red Cell Distribution Width 13.9, Platelet Count 296, Mean Platelet Volume 11.3, Prothrombin Time 17.2H, INR Comment 1.4, Sodium Level 148H, Potassium Level 4.3, Chloride Level 105, Carbon Dioxide Level 31, Anion Gap 12, Blood Urea Nitrogen 59H, Creatinine 1.16, Estimat Glomerular Filtration Rate 62, BUN/Creatinine Ratio 51, Glucose Level 130H, Calcium Level 9.4 09/06/21 10:45: Glucometer 130H 09/06/21 15:42: Glucometer 124H Microbiology 09/03/21 Blood Culture - Preliminary, Resulted No growth Laboratory Tests 09/05/21 05:57 09/06/21 05:13 A/P: Assessment: Right thigh hematoma and question of compartment syndrome History of paroxysmal atrial fibrillation - anticoag being held because of thigh hematoma Coronary artery disease - History [place] CAB[place] [address] Bradshaw - Cardiac catheterization done July [address] Samuels revealing severe multivessel resighini coronary artery disease. 3 out of 4 patent bypass grafts with the RATLIFF being atretic. 2 grafts going to the left coronary bed, one to the diagonal, 1 to the obtuse marginal, both widely patent with good filling of the left coronary tree Dementia S/P TAVR done in October [address] Andrew, had complex and prolonged recovery in [facility] secondary to UTI, sepsis, questionable anoxic brain injury - - Most recent 2D Echo done September 2019 showed LV cavity size is increased and wall thickness is mildly to moderatley increased. LV systolic function is mildy decreased with EF 40-45%, diastolic dysfunction. RV systolic function is reduce, LA is mildly dilated measuring 4.8 cm, MV has moderately calcified annulus-sclerosis with mild stenosis. 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
[2021-09-06 16:24] VITALS: BP 116/57
[2021-09-06] MEDS: TAMSULOSIN 0.4 MG (FLOMAX) CAP PO SCH (17:38)
[2021-09-06 17:40] VITALS: BP 135/59
[2021-09-06 19:50] VITALS: BP 136/75
[2021-09-06] MEDS: traZODone 50 MG (DESYREL) TAB PO SCH (20:40)
[2021-09-07] VITALS (17 sets, daily range): BP systolic 88–145; BP diastolic 53–94
[2021-09-07] MEDS: meTOprolol 5 MG/5 ML (LOPRESSOR) VIAL IV SCH ×6 (00:11→20:44)
[2021-09-07] MEDS: inSUlin ASPART (NovoLOG) 1 UNIT/0.01 ML (CHARGE PER UNIT) SC SCH ×4 (05:11→23:56)
[2021-09-07] MEDS ORDERED: NS IV 1000 ML 1,000 ML ONE (06:17)
[2021-09-07 06:20] LABS: HEMATOCRIT 32 % (40-54); MEAN CORPUSCULAR HEMOGLOBIN 30 pg (25-34); MEAN CORPUSCULAR HGB CONC 31 g/dL (32-36); MEAN CORPUSCULAR VOLUME 96 fL (80-99); MEAN PLATELET VOLUME 11.3 fL (9.0-12.2); PLATELET COUNT 296 10^3/uL (130-400); WHITE BLOOD COUNT 15.4 10^3/uL (4.3-11.0)
[2021-09-07 06:28] LABS: INR 1.4 (0.8-1.4); PROTHROMBIN TIME PATIENT 17.4 SEC (12.2-14.7)
[2021-09-07] MEDS ORDERED: NS (IVPB) 250 ML IV ONE (06:30)
[2021-09-07 06:31] LABS: POTASSIUM 4.2 MMOL/L (3.6-5.0)
[2021-09-07 06:32] LABS: CALCIUM 9.6 MG/DL (8.5-10.1)
[2021-09-07 06:37] LABS: CREATININE SERUM 1.26 MG/DL (0.60-1.30)
[2021-09-07] MEDS: NS IV 1000 ML 1,000 ML IV SCH ×3 (08:26→20:59)
[2021-09-07] MEDS: DOCUSATE SODIUM 100 MG (COLACE) CAP PO SCH ×2 (08:38→20:17)
[2021-09-07] MEDS: meTOprolol TARTRATE 50 MG (LOPRESSOR) TAB PO SCH ×2 (08:38→20:18)
[2021-09-07] MEDS: FUROSEMIDE 20 MG (LASIX) TAB PO SCH (08:38)
[2021-09-07] MEDS: PARoxetine 20 MG (PAXIL) TAB PO SCH (08:38)
[2021-09-07] MEDS: AtorvaSTATin TABLET 10 MG TABLET PO SCH (08:38)
[2021-09-07] MEDS: FINASTERIDE (PROSCAR) 5 MG TAB PO SCH (08:38)
[2021-09-07] MEDS: polyethylene glycoL POWDER 17 GM (MIRALAX) PACK PO SCH ×2 (08:41→20:18)
--- NOTE | 2021-09-07 10:13 | Diagnostic Imaging Report ---
HISTORY: Leukocytosis TECHNIQUE: Frontal view of the chest. COMPARISON: 09/01/2021 FINDINGS: There is new airspace opacity in the right lung base. Lung volumes are mildly decreased. There is no pleural effusion or pneumothorax. The cardiac silhouette is stable in size. Sternotomy wires and post-CABG changes and a valve prosthesis are noted. IMPRESSION: 1. Decreased lung volumes with new right basilar airspace opacity, may represent atelectasis or infiltrate. Dictated by: Dictated on workstation # [id number]
[2021-09-07 10:49] LABS: BILIRUBIN,URINE NEGATIVE (NEGATIVE); CLARITY,URINE CLEAR; COLOR,URINE YELLOW; GLUCOSE, URINE (UA) NEGATIVE (NEGATIVE); KETONES,URINE NEGATIVE (NEGATIVE); LEUKOCYTE ESTERASE ,URINE NEGATIVE (NEGATIVE); NITRITE,URINE NEGATIVE (NEGATIVE); PROTEIN,URINE NEGATIVE (NEGATIVE)
[2021-09-07 11:11] LABS: BACTERIA,URINE TRACE /HPF; RBC,URINE RARE /HPF; WBC,URINE 0-2 /HPF
--- NOTE | 2021-09-07 11:37 | Progress Note - Hospitalist ---
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 He tripped over his own feet at home and fell and hit his leg on his coffee table. EMS was summoned due to severe pain. He was given 100mcg of Fentanyl in the ambulance without relief and continued to have pain. Just prior to my exam he got a dose of Dliaudid and was quite drowsy during our conversation and history is somewhat limited by that. Daughter states he is normally pretty healthy but is on Coumadin after a TAVR. He complains of pain in his leg and wanting something to drink and otherwise mostly just slept. Subjective/Events-last exam Pt still confused today but he was able to tell me he was doing well. I called and spoke with his daughter Rachelle as well. We discussed his current status and she is ok with SNF placement if this continues. Objective Exam Vital Signs Vital Signs Date Time Temp Pulse Resp B/P (MAP) Pulse Ox O2 Delivery O2 Flow Rate FiO2 09/07/21 11:20 36.3 83 20 114/57 (76) 95 Nasal Cannula 4.00 Capillary Refill : Less Than 3 Seconds General Appearance: No Apparent Distress, Chronically ill, Obese Respiratory: Lungs Clear, No Respiratory Distress Cardiovascular: Regular Rate, Rhythm, No Murmur Extremity: Other (thigh much improved sking tautness, 2+ DP pulse) Neurologic/Psychiatric: Alert, Disoriented Results/Procedures Lab Laboratory Tests 09/07/21 05:45 Patient resulted labs reviewed. Imaging: Reviewed Imaging Report Assessment/Plan Assessment and Plan Assess & Plan/Chief Complaint Compartment syndrome vs thigh contusion and hematoma Intractable pain Injury concerning for compartment syndrome with elevated pressures on manometry on arrival but improving daily Ortho consulted, appreciate recs and management Neurovascular checks, clinically appears better still with good pulses still Continue pain regimen Fentanyl patch in place, hydrocodone for breakthrough pain Will decreased dose on fentanyl patch on next check to hopefully help with mentation as no breakthrough meds needed Discussed with Anesthesia about potential epidural or nerve block but they did not think there was a good option for pain control given location Tachycardia- improved history of a fib Continue on telemetry Cardiology consulted, appreciate recs Holding Warfarin for now due hematoma May be able to restart it soon with improving exam on leg Continue metoprolol Was tachycadiac this AM and fluids started and now improved Leukocytosis No evidence of infection, trending down still History of UTI with MDRO in November of 2020 Dementia HTN HLD BPH History of TAVR Anticoagulated on coumadin Continue home meds as able but hold blood thinners today as INR 1.5 Continues to be altered though very slowly improving, unsure if we are approaching a new baseline or if still hopeful for improvement since off IV pain meds for 2 days now WIll likely need placement upon discharge Diagnosis/Problems Diagnosis/Problems (1) Chronic anticoagulation (2) Thigh contusion (3) Compartment syndrome of right lower extremity Status: Acute Qualifiers: Encounter type: initial encounter Qualified Codes: T79.A21A - Traumatic compartment syndrome of right lower extremity, initial encounter (4) HLD (hyperlipidemia) Status: Chronic (5) HTN (hypertension) Status: Chronic (6) Obesity Status: Chronic (7) Dementia Status: Chronic (8) BPH (benign prostatic hyperplasia) Status: Acute (9) Afib Status: Chronic SANTOS BRINK MD Sep 07, 2021 11:37
[2021-09-07] MEDS: FENTANYL PATCH REMOVAL TP SCH (12:23)
[2021-09-07] MEDS: cefTRIAXone 1 GM PRE-MIX 50 ML IV SCH (12:27)
--- NOTE | 2021-09-07 15:11 | Progress Note - Cardiology ---
Cardiology SOAP Progress Note Subjective: Does not report symptoms Does not answer questions Objective: I&O/Vital Signs 09/07/21 09/07/21 09/07/21 09/07/21 04:00 06:02 07:00 08:11 Temp 36.6 36.8 Pulse 90 155 109 99 Resp 19 22 B/P (MAP) 127/63 (84) 93/61 (72) 134/71 (92) Pulse Ox 96 100 O2 Delivery Nasal Cannula Nasal Cannula O2 Flow Rate 4.00 4.00 09/07/21 09/07/21 09/07/21 09/07/21 09:00 11:20 12:34 14:14 Temp 36.3 Pulse 83 81 Resp 20 B/P (MAP) 114/57 (76) Pulse Ox 95 O2 Delivery Nasal Cannula Nasal Cannula Nasal Cannula O2 Flow Rate 4.00 4.00 4.00 09/06/21 23:59 Intake Total 50 ml Balance 50 ml Constitutional: No AAO x 3; well-developed, well-nourished, other (does not appear to be in distress) Respiratory: No accessory muscle use; other (fair ) Cardiovascular: regular rate-rhythm, S1 and S2, systolic murmur (soft DONALD at card base) Gastrointestional: No tender; soft; No guarding, No rebound; audible bowel sounds Extremities: No clubbing, No cyanosis, No significant edema Neurologic/Psychiatric: No oriented x 3; other (appears to move all limbs equally) Skin: No rash on exposed areas, No ulcerations on exposed areas Results/Procedures: Labs Laboratory Tests 09/06/21 15:42: Glucometer 124H 09/06/21 20:26: Glucometer 123H 09/07/21 05:09: Glucometer 117H 09/07/21 05:45: White Blood Count 15.4H, Red Blood Count 3.37L, Hemoglobin 10.0L, Hematocrit 32L , Mean Corpuscular Volume 96, Mean Corpuscular Hemoglobin 30, Mean Corpuscular Hemoglobin Concent 31L, Red Cell Distribution Width 14.3, Platelet Count 296, Mean Platelet Volume 11.3, Prothrombin Time 17.4H, INR Comment 1.4, Sodium Level 151H, Potassium Level 4.2, Chloride Level 108H, Carbon Dioxide Level 31, Anion Gap 12, Blood Urea Nitrogen 65H, Creatinine 1.26, Estimat Glomerular Filtration Rate 56, BUN/Creatinine Ratio 52, Glucose Level 142H, Calcium Level 9.6 09/07/21 10:15: Urine Color YELLOW, Urine Clarity CLEAR, Urine pH 6.0, Urine Specific [place] 1.015L, Urine Protein NEGATIVE, Urine Glucose (UA) NEGATIVE, Urine Ketones NEGATIVE, Urine Nitrite NEGATIVE, Urine Bilirubin NEGATIVE, Urine Urobilinogen 1.0, Urine Leukocyte Esterase NEGATIVE, Urine RBC (Auto) 1+H, Urine RBC RARE, Urine WBC 0-2, Urine Crystals NONE, Urine Bacteria TRACE, Urine Casts NONE, Urine Mucus NEGATIVE, Urine Culture Indicated NO 09/07/21 10:42: Glucometer 144H Microbiology 09/03/21 Blood Culture - Preliminary, Resulted No growth Laboratory Tests 09/06/21 05:13 09/07/21 05:45 A/P: Assessment: Tachycardic and borderline hypotensive on the am of 09/07/21 - likely related to vol depletion due to poor oral intake Right thigh hematoma and question of compartment syndrome History of paroxysmal atrial fibrillation - anticoag being held because of thigh hematoma Coronary artery disease - [place] [address] Bradshaw - Cardiac catheterization done July [address] Samuels revealing severe multivessel [place] coronary artery disease. 3 out of 4 patent bypass grafts with the RATLIFF being atretic. 2 grafts going to the left coronary bed, one to the diagonal, 1 to the obtuse marginal, both widely patent with good filling of the left coronary tree Dementia S/P TAVR done in October [address] Andrew, had complex and prolonged recovery in [facility] secondary to UTI, sepsis, questionable anoxic brain injury - - Most recent 2D Echo done September 2019 showed LV cavity size is increased and wall thickness is mildly to moderatley increased. LV systolic function is mildy decreased with EF 40-45%, diastolic dysfunction. RV systolic function is reduce, LA is mildly dilated measuring 4.8 cm, MV has moderately calcified annulus- sclerosis with mild stenosis. 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 Has helped in restorationism of bp and improvement of heart * Beta-reuben dose reduced but iv frequency increased * Monitor labs ARIEL COSBY MD [facility] Sep 07, 2021 15:11
[2021-09-07] MEDS: TAMSULOSIN 0.4 MG (FLOMAX) CAP PO SCH (16:17)
[2021-09-07] MEDS ORDERED: dilTIAZem DRIP PRE-MIX 125 ML IV ONE (17:18)
[2021-09-07] MEDS ORDERED: dilTIAZem DRIP PRE-MIX 125 ML IV SCH (18:15)
--- NOTE | 2021-09-07 18:16 | Tele-ICU Consult ---
History of Present Illness History of Present Illness Date Seen by Provider: Sep 07, 2021 Time Seen by Provider: 18:11 Reason for Visit: Sinus Tachycardia History of Present Illness 86 yo M fell, has right thigh hematoma, ?compartment syndrome which is getting bigger was 6 no 18cm, Hx of a fib, had V rate of 160, started on IV Cardizem sent to MICU, given IV, rate down to 100 PMH HLD, BPH, CAD, CABG 2003, TAVR, has been on coumadin, no on hold INR 1.4/17.4 CXR ? right basse atelectasis, Allergies and Home Medications Allergies Coded Allergies: Sulfa (Sulfonamide Antibiotics) (Verified Allergy, Unknown, UNSURE OF REACTION, 07/06/21) Home Medications Atorvastatin Calcium 10 Mg Tablet, 10 MG PO DAILY, (Reported) Finasteride 5 Mg Tablet, 5 MG PO DAILY, (Reported) Furosemide 20 Mg Tablet, 20 MG PO DAILY, (Reported) Hydroxyzine Pamoate 25 Mg Capsule, 25 MG PO TID PRN for ANXIETY, (Reported) Metoprolol Succinate 25 Mg Tab.er.24h, 25 MG PO DAILY, (Reported) Paroxetine HCl 20 Mg Tablet, 20 MG PO DAILY, (Reported) Potassium Chloride 10 Meq Tab.er.prt, 10 MEQ PO DAILY, (Reported) Tamsulosin HCl 0.4 Mg Cap, 0.4 MG PO 1800, (Reported) Trazodone HCl 50 Mg Tablet, 50 MG PO HS, (Reported) Warfarin Sodium 5 Mg Tablet, 5 MG PO WED,WED, (Reported) TAKES AT 1700 Warfarin Sodium 5 Mg Tablet, 10 MG PO WED,,,,, (Reported) TAKES AT 1700 TAKES 2 (5MG) TABS Past Medical/Social/Family Hx Patient Social History Marrital Status: Tobacco Use?: No Use of E-Cig and/or Vaping dev: No Substance use?: No Alcohol Use?: No Pt stated abuse/neglect: No Immunizations Up To Date Influenza Vaccine Up-to-Date: No; Not Current First/Initial COVID19 Vaccinat: 08/2020 Second COVID19 Vaccination Demarco: 09/2020 Tetanus Booster (TDap): Unknown Hepatitis A: No Hepatitis B: No TB Skin Test: None Date of Pneumonia Vaccine: Mar 18, 2020 Current Status Advance Directives: No Communicates: Verbally Primary Language: Thai Preferred Spoken Language: Thai Is interpretation needed?: No Implanted or Applied Medical D: Heart mechanical device Review of Systems Constitutional: see HPI EENTM: see HPI Respiratory: see HPI Cardiovascular: see HPI Gastrointestinal: see HPI Genitourinary: see HPI Musculoskeletal: see HPI Skin: see HPI Psychiatric/Neurological: See HPI Focused Exam Height, Weight, BMI Height: '" Weight: lbs. oz. kg; 32.71 BMI Method: Exam Exam Patient acknowledged, consented, and participated in this virtual visit which was conducted using real time audio/video Vital Signs Date Time Temp Pulse Resp B/P (MAP) Pulse Ox O2 Delivery O2 Flow Rate FiO2 09/07/21 18:00 100 22 107/94 (98) 92 Nasal Cannula 4.00 09/07/21 17:08 150 92/62 (72) 93 Nasal Cannula 4.00 09/07/21 17:03 36.3 163 88/63 (71) 94 Nasal Cannula 4.00 09/07/21 16:50 147 97/64 (75) Nasal Cannula 4.00 09/07/21 16:06 100/63 (75) Nasal Cannula 4.00 09/07/21 15:50 36.8 147 18 100/59 (73) 94 Nasal Cannula 4.00 09/07/21 15:40 151 145/72 (96) 94 Nasal Cannula 4.00 09/07/21 14:14 Nasal Cannula 4.00 09/07/21 12:34 81 09/07/21 11:20 36.3 83 20 114/57 (76) 95 Nasal Cannula 4.00 09/07/21 09:00 Nasal Cannula 4.00 09/07/21 08:11 36.8 99 22 134/71 (92) 100 Nasal Cannula 4.00 09/07/21 07:00 109 09/07/21 06:02 155 93/61 (72) 09/07/21 04:00 36.6 90 19 127/63 (84) 96 Nasal Cannula 4.00 09/07/21 01:00 71 09/07/21 00:00 36.4 71 18 114/60 (78) 94 Nasal Cannula 4.00 09/06/21 20:01 94 Nasal Cannula 4.00 09/06/21 19:50 36.1 80 18 136/75 (95) 95 Nasal Cannula 4.00 09/06/21 19:00 73 I & O 09/07/21 07:00 Intake Total 150 ml Balance 150 ml Height & Weight Height: '" Weight: lbs. oz. kg; 32.71 BMI Method: General Appearance: No Apparent Distress, Anxious, Chronically ill, Obese HEENT: PERRL/EOMI, Moist Mucous Membranes; No Scleral Icterus (L), No Scleral Icterus (R) Neck: Normal Inspection, Supple Respiratory: Lungs Clear, No Respiratory Distress, Crackles, Decreased Breath Sounds, Other (BS diminished on left) Cardiovascular: Regular Rate, Rhythm, No Edema, No Gallop, No Murmur, Other (HR in 90's) Capillary Refill: Less Than 3 Seconds Gastrointestinal: normal bowel sounds, non tender, soft Extremity: Pedal Edema (right leg is swollen, possible compartment syndrome), Other (thigh much improved sking tautness, 2+ DP pulse) Neurologic/Psychiatric: Alert, Disoriented Skin: No Cool, No Mottled Results Lab Laboratory Tests 09/06/21 05:13 09/07/21 05:45 Assessment/Plan Assessment/Plan To be seen by surgery to decide on need for fasciotomy continue on IV Cardizem @ 8 Critical Care: Critically Ill Patient Time spent with patient (mins): 25 RYAN REESE MD Sep 07, 2021 18:16
--- NOTE | 2021-09-07 19:25 | Progress Note - Ortho ---
Progress Note Subjective Date of Exam 09/07/21 Chief Complaint Right Thigh Pain HPI/Events since last exam continued difficulty with thigh pain, recent transfer to ICU, concerns about increased swelling Review of Systems - Allergies: Coded Allergies: Sulfa (Sulfonamide Antibiotics) (Verified Allergy, Unknown, UNSURE OF REACTION, 07/06/21) Home Meds Reported Medications Trazodone HCl (Trazodone HCl) 50 Mg Tablet, 50 MG PO HS, TAB 11/21/20 Paroxetine HCl (Paroxetine HCl) 20 Mg Tablet, 20 MG PO DAILY, TAB 11/21/20 Warfarin Sodium (Warfarin Sodium) 5 Mg Tablet, 10 MG PO SUN,MO,,TH,FR, TAB TAKES AT 1700 TAKES 2 (5MG) TABS 11/21/20 Warfarin Sodium (Warfarin Sodium) 5 Mg Tablet, 5 MG PO WED,SAT, TAB TAKES AT 1700 11/21/20 Hydroxyzine Pamoate (Hydroxyzine Pamoate) 25 Mg Capsule, 25 MG PO TID PRN for ANXIETY, CAP 11/21/20 Metoprolol Succinate (Metoprolol Succinate) 25 Mg Tab.er.24h, 25 MG PO DAILY, TAB 06/11/20 Tamsulosin HCl (Flomax) 0.4 Mg Cap, 0.4 MG PO 1800, CAP 06/11/20 Atorvastatin Calcium (Atorvastatin Calcium) 10 Mg Tablet, 10 MG PO DAILY, TAB 05/15/20 Potassium Chloride (Potassium Chloride) 10 Meq Tab.er.prt, 10 MEQ PO DAILY 05/15/20 Furosemide (Furosemide) 20 Mg Tablet, 20 MG PO DAILY, TAB 05/15/20 Finasteride (Finasteride) 5 Mg Tablet, 5 MG PO DAILY, TAB 05/15/20 Discontinued Reported Medications Tramadol HCl (Tramadol HCl) 50 Mg Tablet, 50 MG PO BID PRN for PAIN-MODERATE (5- 7), TAB 11/21/20 Objective Exam Right Thigh: Remains compressible--very similar to last exam, ecchymosis over the posterior portion of the leg, pulses remains palpable, no pain with passive stretch, tender to palpation over the ecchymosis Vital Signs Vital Signs Date Time Temp Pulse Resp B/P (MAP) Pulse Ox O2 Delivery O2 Flow Rate FiO2 09/07/21 18:24 94 Nasal Cannula 4.00 09/07/21 18:00 100 22 107/94 (98) 92 Nasal Cannula 4.00 09/07/21 17:08 150 92/62 (72) 93 Nasal Cannula 4.00 09/07/21 17:03 36.3 163 88/63 (71) 94 Nasal Cannula 4.00 09/07/21 16:50 147 97/64 (75) Nasal Cannula 4.00 09/07/21 16:06 100/63 (75) Nasal Cannula 4.00 09/07/21 15:50 36.8 147 18 100/59 (73) 94 Nasal Cannula 4.00 09/07/21 15:40 151 145/72 (96) 94 Nasal Cannula 4.00 09/07/21 14:14 Nasal Cannula 4.00 09/07/21 12:34 81 09/07/21 11:20 36.3 83 20 114/57 (76) 95 Nasal Cannula 4.00 09/07/21 09:00 Nasal Cannula 4.00 09/07/21 08:11 36.8 99 22 134/71 (92) 100 Nasal Cannula 4.00 09/07/21 07:00 109 09/07/21 06:02 155 93/61 (72) 09/07/21 04:00 36.6 90 19 127/63 (84) 96 Nasal Cannula 4.00 09/07/21 01:00 71 09/07/21 00:00 36.4 71 18 114/60 (78) 94 Nasal Cannula 4.00 09/06/21 20:01 94 Nasal Cannula 4.00 09/06/21 19:50 36.1 80 18 136/75 (95) 95 Nasal Cannula 4.00 I & O 09/07/21 07:00 Intake Total 150 ml Balance 150 ml Lab Results Laboratory Tests 09/06/21 20:26: Glucometer 123H 09/07/21 05:09: Glucometer 117H 09/07/21 05:45: White Blood Count 15.4H, Red Blood Count 3.37L, Hemoglobin 10.0L, Hematocrit 32L , Mean Corpuscular Volume 96, Mean Corpuscular Hemoglobin 30, Mean Corpuscular Hemoglobin Concent 31L, Red Cell Distribution Width 14.3, Platelet Count 296, Mean Platelet Volume 11.3, Prothrombin Time 17.4H, INR Comment 1.4, Sodium Level 151H, Potassium Level 4.2, Chloride Level 108H, Carbon Dioxide Level 31, Anion Gap 12, Blood Urea Nitrogen 65H, Creatinine 1.26, Estimat Glomerular Filtration Rate 56, BUN/Creatinine Ratio 52, Glucose Level 142H, Calcium Level 9.6 09/07/21 10:15: Urine Color YELLOW, Urine Clarity CLEAR, Urine pH 6.0, Urine Specific [place] 1.015L, Urine Protein NEGATIVE, Urine Glucose (UA) NEGATIVE, Urine Ketones NEGATIVE, Urine Nitrite NEGATIVE, Urine Bilirubin NEGATIVE, Urine Urobilinogen 1.0, Urine Leukocyte Esterase NEGATIVE, Urine RBC (Auto) 1+H, Urine RBC RARE, Urine WBC 0-2, Urine Crystals NONE, Urine Bacteria TRACE, Urine Casts NONE, Urine Mucus NEGATIVE, Urine Culture Indicated NO 09/07/21 10:42: Glucometer 144H 09/07/21 15:59: Glucometer 135H Microbiology 09/03/21 Blood Culture - Preliminary, Resulted No growth Assessment and Plan Assessment Right Thigh Hematoma Problem List Right Thigh Hematoma Plan Continue to observe. Consider repeat imaging given ongoing pain level. Final Diagonsis Dx- Code: Precautions: Password: Family: Allergies: Hx- Neuro IVs Resp Cards BP Gtts Right Thigh Hematoma Level of the visit: Level 3 JUAN PUGH MD Sep 07, 2021 19:25
[2021-09-07] MEDS: traZODone 50 MG (DESYREL) TAB PO SCH (20:44)
[2021-09-08] VITALS (24 sets, daily range): BP systolic 86–141; BP diastolic 51–83
[2021-09-08] MEDS: meTOprolol 5 MG/5 ML (LOPRESSOR) VIAL IV SCH ×2 (02:06→03:57)
[2021-09-08 04:43] LABS: HEMATOCRIT 33 % (40-54); HEMOGLOBIN 9.7 g/dL (13.3-17.7); MEAN CORPUSCULAR HEMOGLOBIN 30 pg (25-34); MEAN CORPUSCULAR HGB CONC 30 g/dL (32-36); MEAN CORPUSCULAR VOLUME 101 fL (80-99); MEAN PLATELET VOLUME 11.3 fL (9.0-12.2); PLATELET COUNT 256 10^3/uL (130-400); WHITE BLOOD COUNT 16.7 10^3/uL (4.3-11.0)
[2021-09-08 04:59] LABS: INR 1.3 (0.8-1.4)
[2021-09-08 05:07] LABS: CREATININE SERUM 1.08 MG/DL (0.60-1.30); MAGNESIUM 2.6 MG/DL (1.6-2.4); POTASSIUM 3.8 MMOL/L (3.6-5.0)
[2021-09-08] MEDS: MAGNESIUM 1 GM/100 ML IVPB 100 ML IV SCH (05:24)
[2021-09-08] MEDS: POTASSIUM CL 10MEQ/50ML IVPB 50 ML IV SCH (05:24)
[2021-09-08] MEDS: inSUlin ASPART (NovoLOG) 1 UNIT/0.01 ML (CHARGE PER UNIT) SC SCH ×4 (05:24→20:51)
[2021-09-08] MEDS: KCL 20 MEQ TAB (K-DUR) PO SCH (05:24)
[2021-09-08] MEDS ORDERED: D5 1/2 NS 1000 ML IV SOLUTION 1,000 ML IV SCH (06:15)
--- NOTE | 2021-09-08 07:54 | Physical Therapy Progress Note ---
Therapy Progress Note Patient transferred to ICU secondary to decline in status. PT will require new orders upon improvement of patient status. NENO BAILEY PT Sep 08, 2021 07:54
[2021-09-08] MEDS ORDERED: meTOprolol 5 MG/5 ML (LOPRESSOR) VIAL IV SCH (08:00)
[2021-09-08] MEDS: FUROSEMIDE 20 MG (LASIX) TAB PO SCH (09:05)
[2021-09-08] MEDS: PARoxetine 20 MG (PAXIL) TAB PO SCH (09:05)
[2021-09-08] MEDS: AtorvaSTATin TABLET 10 MG TABLET PO SCH (09:05)
[2021-09-08] MEDS: FINASTERIDE (PROSCAR) 5 MG TAB PO SCH (09:05)
[2021-09-08] MEDS: polyethylene glycoL POWDER 17 GM (MIRALAX) PACK PO SCH ×2 (09:06→20:51)
[2021-09-08] MEDS: DOCUSATE SODIUM 100 MG (COLACE) CAP PO SCH ×2 (09:07→20:50)
[2021-09-08] MEDS: meTOprolol TARTRATE 50 MG (LOPRESSOR) TAB PO SCH ×2 (09:07→20:51)
[2021-09-08] MEDS: D5W 1000 ML IV SOLUTION 1,000 ML IV SCH ×4 (09:08→21:25)
--- NOTE | 2021-09-08 09:38 | Cardiology Progress Note ---
Subjective Date Seen by Provider: Sep 08, 2021 Time Seen by Provider: 09:34 Subjective/Events-last exam Patient was seen and evaluated at bedside, moaning. Not answering questions. Review of Systems General: Other (Did not provide review of system) Objective-Cardiology Exam Last Set of Vital Signs Vital Signs 09/08/21 09/08/21 07:53 09:00 Temp 36.1 Pulse 98 Resp 14 B/P (MAP) 117/65 (82) Pulse Ox 95 O2 Delivery Nasal Cannula O2 Flow Rate 4.00 I&O Intake and Output 09/07/21 23:59 Intake Total 1390 ml Output Total 475 ml Balance 915 ml Intake Oral 340 ml IV Total 1050 ml Output Urine Total 475 ml # Voids 10 # Urine Diapers 1 General: Alert, No Acute Distress, Other (disoriented) HEENT: Atraumatic, PERRLA Neck: Supple Lungs: Clear to Auscultation, Normal Air Movement Heart: Regular Rate, Normal S1, Normal S2 Abdomen: Normal Bowel Sounds, Soft Extremities: No Clubbing, Normal Pulses, Other (bilateral peripheral edema, Right thigh swelling is improving) Skin: No Rashes, No Breakdown Psych/Mental Status: Mood NL, Other (Patient's mental status is improved, but still disoriented ) Results Lab Laboratory Tests 09/08/21 04:35 A/P-Cardiology Admission Diagnosis Hematoma of the right thigh Paroxysmal atrial fibrillation Hypertension Change in mental status Assessment/Plan Paroxysmal atrial flutter, heart rate was 150. Converted to sinus rhythm on September 09, 2019 2 in the morning. Underlying sinus tachycardia with a heart rate 120. History of paroxysmal atrial fibrillation was maintained on Coumadin and Toprol- XL as an outpatient. Currently on Cardizem drip and Lopressor IV. I will switch the Cardizem drip to oral and evaluate tolerance and response. Thigh Contusion with Hematoma vs Compartment syndrome Currently holding coumadin, patient dorsalis pedis and posterior tibial pulses palpable bilaterally INR returned to normal. Still having swelling and tenderness in his right thigh, managed by Dr. Paez [id number] score of 6, yearly risk of stroke without oral anticoagulation is 9.8%, currently having active bleed. Continue to hold Coumadin and monitor Coronary artery disease History of CAB[place] [address] Bradshaw, has been followed by Dr. White and Dr. Longnecker after that Cardiac catheterization done July [address] Samuels revealing severe multivessel [place] coronary artery disease. 3 out of 4 patent bypass grafts with the RATLIFF being atretic. 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 Andrew, had complex and prolonged recovery in [facility] secondary to UTI, sepsis, questionable anoxic brain injury Most recent 2D Echo done September 2019 showed LV cavity size is increased and wall thickness is mildly to moderatley increased LV systolic function is mildy decreased with EF 40-45%, diastolic dysfunction. RV systolic function is reduce, LA is mildly dilated measuring 4.8 cm, MV has moderately calcified annulus-sclerosis with mild stenosis. 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 Will continue to evaluate risk vs. benefit of holding coumadin. 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
--- NOTE | 2021-09-08 09:47 | Tele-ICU Progress Note ---
Subjective Date Seen by a Provider: Sep 08, 2021 Time Seen by a Provider: 09:44 Subjective/Events-last exam (Tele-ICU Physician , Progress Note ) Available chart/ vitals / labs / Images reviewed Video assessment done using teleICU camera, rest of exam as per RN Discussed with RN , EXAM PER RN Events overnight : Afebrile FiO2 - 4 L I/O = pos Drips: Cardizem amd D5 1/2 100 Pressors: , hemodynamically stable Consultants: ninoska aviles Hospital course: (09/01) 86 Y admitted s/p mechanical fall at home, right LE compartment syndrome vs hematoma (09/07) Transfer to ICU d/t Afib on Cardizem ggt A/P right thigh hematoma, ?compartment syndrome - as per sx - hb stable - ac on hold A fib, RVR 160 - on IV Cardizem gtt - AC with Coumadin - ON HOLD Hypernatremia - add d5 W and follow CAD, s/p CABG , s/p TAVR - EF 40-45% 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 - as per bedside MD Lines : (Central Line Necessity Reviewed) [place]: + OG: Nutrition: speech eval Analgesia: Anxiety/ delirium VTE Prophylaxis: on hold Stress Ulcer Prophylaxis: Plans in collaboration with bedside consultants and IM MDs. Discussed with RN to reach out if any questions or concerns A total of 32 minutes of critical care time was devoted to this patient today, required to treat and/or prevent further deterioration of critical care condition ( as above) . Sepsis Event Evaluation Height, Weight, BMI Height: '" Weight: lbs. oz. kg; 32.71 BMI Method: Exam Exam Patient acknowledged, consented, and participated in this virtual visit which was conducted using real time audio/video Vital Signs Date Time Temp Pulse Resp B/P (MAP) Pulse Ox O2 Delivery O2 Flow Rate FiO2 09/08/21 09:00 98 14 117/65 (82) 95 Nasal Cannula 4.00 09/08/21 08:00 78 16 113/57 (75) 92 Nasal Cannula 4.00 09/08/21 08:00 93 4.00 3/28/22 07:53 36.1 09/08/21 07:00 77 29 117/59 (78) 90 Nasal Cannula 4.00 09/08/21 06:32 75 09/08/21 06:00 71 16 106/54 (71) 98 Nasal Cannula 4.00 09/08/21 05:00 69 20 124/65 (84) 94 Nasal Cannula 4.00 09/08/21 04:19 36.1 09/08/21 04:00 95 Nasal Cannula 4.00 09/08/21 04:00 70 11 141/69 (93) 94 Nasal Cannula 4.00 09/08/21 03:00 73 137/70 (92) 93 Nasal Cannula 4.00 09/08/21 02:00 66 140/83 (102) 96 Nasal Cannula 4.00 09/08/21 01:00 67 11 114/61 (78) 94 Nasal Cannula 4.00 09/08/21 00:35 75 09/08/21 00:02 35.8 09/08/21 00:00 75 17 119/67 (84) Nasal Cannula 4.00 09/07/21 23:59 95 Nasal Cannula 4.00 09/07/21 23:00 80 20 113/65 (81) 93 Nasal Cannula 4.00 09/07/21 22:00 90 14 130/69 (89) 93 Nasal Cannula 4.00 09/07/21 21:00 80 13 127/65 (85) 93 Nasal Cannula 4.00 09/07/21 20:00 70 14 91/53 (66) 96 Nasal Cannula 4.00 09/07/21 19:48 36.2 Nasal Cannula 4.00 09/07/21 19:45 94 Nasal Cannula 4.00 09/07/21 19:00 79 09/07/21 19:00 79 17 109/62 (78) 92 Nasal Cannula 4.00 09/07/21 18:24 94 Nasal Cannula 4.00 09/07/21 18:00 100 22 107/94 (98) 92 Nasal Cannula 4.00 09/07/21 17:08 150 92/62 (72) 93 Nasal Cannula 4.00 09/07/21 17:03 36.3 163 88/63 (71) 94 Nasal Cannula 4.00 09/07/21 16:50 147 97/64 (75) Nasal Cannula 4.00 09/07/21 16:06 100/63 (75) Nasal Cannula 4.00 09/07/21 15:50 36.8 147 18 100/59 (73) 94 Nasal Cannula 4.00 09/07/21 15:40 151 145/72 (96) 94 Nasal Cannula 4.00 09/07/21 14:14 Nasal Cannula 4.00 09/07/21 12:34 81 09/07/21 11:20 36.3 83 20 114/57 (76) 95 Nasal Cannula 4.00 I & O 09/08/21 06:59 Intake Total 2290 ml Output Total 925 ml Balance 1365 ml Height & Weight Height: '" Weight: lbs. oz. kg; 32.71 BMI Method: General Appearance: No Apparent Distress, Anxious, Chronically ill, Obese HEENT: PERRL/EOMI, Moist Mucous Membranes; No Scleral Icterus (L), No Scleral Icterus (R) Neck: Normal Inspection, Supple Respiratory: Lungs Clear, No Respiratory Distress, Crackles, Decreased Breath Sounds, Other (BS diminished on left) Cardiovascular: Regular Rate, Rhythm, No Edema, No Gallop, No Murmur, Other (HR in 90's) Capillary Refill: Less Than 3 Seconds Gastrointestinal: normal bowel sounds, non tender, soft Extremity: Pedal Edema (right leg is swollen, possible compartment syndrome), Other (thigh much improved sking tautness, 2+ DP pulse) Neurologic/Psychiatric: Alert, Disoriented Skin: No Cool, No Mottled Results Lab Laboratory Tests 09/07/21 05:45 09/08/21 04:35 Assessment/Plan Assessment/Plan ` AGRRET VALENTIN MD Sep 08, 2021 09:47
--- NOTE | 2021-09-08 11:28 | Physical Therapy Progress Note ---
Therapy Progress Note PT to dismiss patient from services at this time due to decline in status. RN confirms and agrees. NENO BAILEY PT Sep 08, 2021 11:28
--- NOTE | 2021-09-08 11:46 | ST Dysphagia Evaluation ---
Speech Evaluation-General Medical Diagnosis Compartment Syndrome R LE Onset Date: Sep 01, 2021 Therapy Diagnosis Therapy Diagnosis: Suspected Oropharyngeal Dysphagia Precautions Precautions: Fall, Aspiration Precautions/Isolations: Aspiration, Fall Prevention, Standard Precautions Referral Referring Physician: Dr. Gwendolyn Muse Reason for Referral: Evaluation/Treatment Medical History Pertinent Medical History: Atrial Fib, CABG, CAD, HTN Current History The patient is an 86 year-old male with a past medical history of CABG, pulmonary embolism, atrial fibrillation, CAD, high cholesterol, HTN, dementia, TIA, and GERD, who presented to [facility] with a report of a fall and the inability to bear weight on his right hip. The patient was found to have a right thigh hematoma. Reviewed History: Yes Social History Current Living Status: Alone Speech PLF/Current-Dysphagia Prior Level of Function The patient's prior level of P.O. intake is unknown to this clinician and not present following an extensive chart review. Subjective The patient was seated upright in bed, eyes open upon entrance to his room by the clinician. The patient has high daughter present at bedside. The patient does not verbally return the patient's greeting. The patient is verbally communicating however phrases are intermittently incomprehensible. The patient displays a high level of confusion and a necessity for consistent redirection to task throughout the evaluation. Cognitive Status Patient Orientation: Confused Oral Motor Skills Dentition: Natural (Partial dentition present.) Current Food Consistancy: Dysphagia Soft, Thin Liquids Ability to Follow Directions: Poor Oral Expression Ability: Severe Impairment Voice Voice Phonatory-Based Quality: Normal Voice Pitch: Normal Voice Loudness: Normal Face Facial Symmetry: Symmetrical Oral-Facial Assessment Oral-Facial Dentition: Normal Labial Seal Description: Weak Smile: Poor Coordination Puff Cheeks: Reduced Strength Lingual Protrusion: Normal Lingual ROM: Normal Lingual Strength: Normal Volitional Dry Swallow: Yes Voluntary Cough: No Can Clear Throat Volitionally: No Productive Cough: No Productive Throat Clear: No Dysphagia Evaluation Consistencies Presented: Thin Liquid, [place] Thick Liquid, Pureed Oral Phase: Anterior Spillage, Oral Residue, Absent Oral Transit The patient demonstrated intermittent inability to draw bolus from the spoon or straw as well as intermittent refusal. Consistent verbal prompting was required for participation throughout the evaluation as the patient attempted to remove himself from bed. Oral holding was present with puree consistencies. The patient would transfer the bolus posterior with maximum verbal prompting and gentle tactile stimulation. Anterior spillage was present with thin liquids. Pharyngeal Phase: Multiple Swallow Attempts, Reduced Laryngeal Elevation, Delayed Swallow Funct. Velo/Pharyngeal Symptom: Clears Throat, Cough After Swallow, Wet Voice The patient was provided five teaspoons of thin liquid, two straw drinks of thin liquid, three teaspoons of nectar-thick liquid, and multiple teaspoons of puree. Initially, the patient did not demonstrate overt s/s of suspected aspiration and his vocal quality remained clear. Following the final thin teaspoon, the patient demonstrated wet, audible belching and regurgitation behavior (however no emesis was present). The patient displayed throat clearing following each trial of nectar-thick liquid. Following multiple teaspoons of puree, the patient again demonstrated facial grimacing, effortful swallowing, wet belching and delayed throat clearing. Due to patient's increasing inattentiveness, the necessity of increased verbal prompting due to confusion, and the s/s of suspected aspiration, the patient was deemed unsafe for additional P.O. trials at this time. Additional P.O. trials will resume with increased participation and cooperation from the patient and decreased confusion. Recommendations: - The patient remains with reduced alertness, frequent fluctuations in attention and a high level of confusion. At the patient's current state, the clinician does not recommend a P.O. diet consistency secondary to overall patient safety. The clinician observed the patient approximately thirty minutes prior to the evaluation. The RN was attempting medication administration in applesauce and teaspoon sips of water. Throughout the attempt, the patient orally held bolus material and was unable to draw thin liquid from the teaspoon. Throughout the speech pathologist's evaluation, the patient orally held bolus material as he attempted to remove himself from bed and complete incomprehensible conversation with the clinician. Increased alertness level is recommended prior to continuing an oral diet with this patient as he remains at a high level of aspiration risk in his current state. - NPO. - Essential medication crushed and placed in puree for administration (during appropriate periods of alertness). - Frequent and excellent oral care to reduce the transfer of oral bacteria to the lungs should aspiration of secretions occur. - Following oral care, ice chips (sparingly) for oral comfort. - Speech pathology to reassess the patient's oropharyngeal swallowing function as appropriate. - Consider referral for esophageal studying due to effortful swallowing and consistent wet belching following the swallow. The recommendations were shared with the patient's daughter (who was at bedside) and the assigned RN's. Dysphagia Evaluation Summary Please see the summary of events above. Speech Short Term Goals Short Term Goals Short Term Goals 1. The patient will display continued participation in the clinical bedside s wallowing re-evaluations to determine the least restrictive diet consistency. Time Frame-STG: Three Days. Speech Care Home Goals Rn Neonatal Goals 1. The patient will tolerate the least restrictive diet consistency without the s/s of suspected aspiration. Time Frame: One Week. Speech-Plan Treatment Plan Speech Therapy Treatment Plan: Continue Plan of Care Treatment Duration: Sep 15, 2021 Frequency: 3 times per week Estimated Hrs Per Day: .25 hour per day Rehab Potential: Poor Pt/Family Agrees to Plan: Yes Safety Risks/Education Teaching Recipient: Patient, Family Teaching Methods: Discussion Response to Teaching: Reinforcement Needed Education Topics Provided: Results, Recommendations, Safe Swallowing Strategies Time Speech Therapy Time In: 11:18 Speech Therapy Time Out: 11:35 Total Billed Time: 17 Billed Treatment Time 1, ROSA GILLETTE ELIZABETH ST Sep 08, 2021 11:46
[2021-09-08] MEDS: fentaNYL PATCH 12 MCG (DURAGESIC) TD SCH (11:51)
[2021-09-08] MEDS: cefTRIAXone 1 GM PRE-MIX 50 ML IV SCH (11:51)
[2021-09-08] MEDS ORDERED: DexMEDEtomidine 250 ML DRIP 250 ML IV SCH (16:30)
[2021-09-08] MEDS ORDERED: DexMEDEtomidine 250 ML DRIP 250 ML IV ONE (16:32)
[2021-09-08] MEDS: TAMSULOSIN 0.4 MG (FLOMAX) CAP PO SCH (18:00)
--- NOTE | 2021-09-08 19:22 | Progress Note - Hospitalist ---
Subjective HPI/CC On Admission Date Seen by Provider: Sep 08, 2021 Time Seen by Provider: 09:30 Pt is an 86yoCM with a PMH of dementia, HTN, HLD, BPH, history of TAVR on coumadin who presented to the ER due to a fall. He tripped over his own feet at home and fell and hit his leg on his coffee table. EMS was summoned due to severe pain. He was given 100mcg of Fentanyl in the ambulance without relief and continued to have pain. Just prior to my exam he got a dose of Dliaudid and was quite drowsy during our conversation and history is somewhat limited by that. Daughter states he is normally pretty healthy but is on Coumadin after a TAVR. He complains of pain in his leg and wanting something to drink and otherwise mostly just slept. Subjective/Events-last exam He is confused. He denies pain. There is no family at the bedside. Objective Exam Vital Signs Vital Signs Date Time Temp Pulse Resp B/P (MAP) Pulse Ox O2 Delivery O2 Flow Rate FiO2 09/08/21 18:00 77 11 93/55 (68) 96 Nasal Cannula 4.00 09/08/21 15:53 36.8 Capillary Refill : Less Than 3 Seconds General Appearance: No Apparent Distress, Chronically ill, Obese Respiratory: Lungs Clear, No Respiratory Distress Cardiovascular: Regular Rate, Rhythm, No Murmur Gastrointestinal: Normal Bowel Sounds, Soft Extremity: Normal Inspection, Pedal Edema Neurologic/Psychiatric: Alert, Disoriented Skin: Normal Color, Warm/Dry Results/Procedures Lab Laboratory Tests 09/08/21 04:35 Patient resulted labs reviewed. Imaging: Reviewed Imaging Report Assessment/Plan Assessment and Plan Assess & Plan/Chief Complaint Right thigh hematoma Intractable pain Ortho following, monitoring closely Continue pain regimen, low dose fentanyl patch Hemoglobin stable TeleICU following Paroxysmal atrial flutter Continue telemetry Cardiology consulted, appreciate recs Holding Warfarin for now due hematoma Continue metoprolol Leukocytosis No evidence of infection, trending down still History of UTI with MDRO in November of 2020 Dementia Delirium Exacerbated by acute illness and hospitalization Haldol and Ativan as needed Precedex added HTN HLD BPH History of TAVR Anticoagulated on coumadin Continue home meds as able but hold blood thinners WIll likely need placement upon discharge Critical Care Critically Ill Patient Diagnosis/Problems Diagnosis/Problems (1) Hematoma of right thigh Status: Acute (2) Atrial flutter Status: Acute (3) Delirium Status: Acute (4) Dementia Status: Chronic JOANNE CARUSO MD Sep 08, 2021 19:22
[2021-09-08] MEDS: traZODone 50 MG (DESYREL) TAB PO SCH (20:51)
[2021-09-09] VITALS (38 sets, daily range): BP systolic 86–138; BP diastolic 43–96
[2021-09-09 04:44] LABS: HEMATOCRIT 29 % (40-54); HEMOGLOBIN 8.6 g/dL (13.3-17.7); MEAN CORPUSCULAR HEMOGLOBIN 30 pg (25-34); MEAN CORPUSCULAR HGB CONC 30 g/dL (32-36); MEAN CORPUSCULAR VOLUME 101 fL (80-99); PLATELET COUNT 194 10^3/uL (130-400)
[2021-09-09 04:53] LABS: INR 1.4 (0.8-1.4); PROTHROMBIN TIME PATIENT 17.6 SEC (12.2-14.7)
[2021-09-09] MEDS: D5W 1000 ML IV SOLUTION 1,000 ML IV SCH ×4 (05:08→22:08)
[2021-09-09 05:26] LABS: CALCIUM 8.7 MG/DL (8.5-10.1); CREATININE SERUM 1.11 MG/DL (0.60-1.30); MAGNESIUM 2.5 MG/DL (1.6-2.4); PHOSPHORUS 2.6 MG/DL (2.3-4.7); POTASSIUM 3.8 MMOL/L (3.6-5.0)
[2021-09-09] MEDS: POTASSIUM CL 10MEQ/50ML IVPB 50 ML IV SCH (06:19)
[2021-09-09] MEDS: MAGNESIUM 1 GM/100 ML IVPB 100 ML IV SCH (06:20)
[2021-09-09] MEDS: KCL 20 MEQ TAB (K-DUR) PO SCH (06:20)
[2021-09-09] MEDS: inSUlin ASPART (NovoLOG) 1 UNIT/0.01 ML (CHARGE PER UNIT) SC SCH ×4 (06:20→20:14)
[2021-09-09] MEDS: AtorvaSTATin TABLET 10 MG TABLET PO SCH (08:12)
[2021-09-09] MEDS: meTOprolol TARTRATE 50 MG (LOPRESSOR) TAB PO SCH ×2 (08:12→20:14)
[2021-09-09] MEDS: DOCUSATE SODIUM 100 MG (COLACE) CAP PO SCH ×2 (08:12→20:14)
[2021-09-09] MEDS: polyethylene glycoL POWDER 17 GM (MIRALAX) PACK PO SCH ×2 (08:12→20:14)
[2021-09-09] MEDS: PARoxetine 20 MG (PAXIL) TAB PO SCH (08:12)
[2021-09-09] MEDS: FUROSEMIDE 20 MG (LASIX) TAB PO SCH (08:12)
[2021-09-09] MEDS: FINASTERIDE (PROSCAR) 5 MG TAB PO SCH (08:13)
--- NOTE | 2021-09-09 08:28 | Cardiology Progress Note ---
Subjective Date Seen by Provider: Sep 09, 2021 Time Seen by Provider: 08:26 Subjective/Events-last exam Patient is doing well, still confused Review of Systems General: Fatigue, Malaise, Other (Unable to provide ROS) Objective-Cardiology Exam Last Set of Vital Signs Vital Signs 09/09/21 09/09/21 09/09/21 06:00 07:39 08:14 Temp 36.2 Pulse 44 Resp 14 B/P (MAP) 94/46 (62) Pulse Ox 93 O2 Delivery Nasal Cannula O2 Flow Rate 3.00 I&O Intake and Output 09/09/21 00:00 Intake Total 1250 ml Output Total 1475 ml Balance -225 ml Intake Oral 50 ml IV Total 1200 ml Output Urine Total 1475 ml General: Alert, No Acute Distress, Other (disoriented) HEENT: Atraumatic, PERRLA Neck: Supple Lungs: Clear to Auscultation, Normal Air Movement Heart: Regular Rate, Normal S1, Normal S2 Abdomen: Normal Bowel Sounds, Soft Extremities: No Clubbing, Normal Pulses, Other (bilateral peripheral edema, Right thigh swelling is improving) Skin: No Rashes, No Breakdown Psych/Mental Status: Mood NL, Other (Patient's mental status is improved, but still disoriented ) Results Lab Laboratory Tests 09/09/21 04:30 A/P-Cardiology Admission Diagnosis Hematoma of the right thigh Paroxysmal atrial fibrillation Hypertension Change in mental status Assessment/Plan Paroxysmal atrial flutter, heart rate was 150. Converted to sinus rhythm on September 08, 2021. Having episodes of bradycardia at this point. I will stop Cardizem and continue with metoprolol with parameters. History of paroxysmal atrial fibrillation was maintained on Coumadin and Toprol- XL as an outpatient. Thigh Contusion with Hematoma vs Compartment syndrome Currently holding coumadin, patient dorsalis pedis and posterior tibial pulses palpable bilaterally INR returned to normal. Still having swelling and tenderness in his right thigh, managed by Dr. Paez [id number] score of 6, yearly risk of stroke without oral anticoagulation is 9.8%, currently having active bleed. Continue to hold Coumadin and monitor Coronary artery disease History [place] CAB[place] [address] Bradshaw, has been followed by Dr. White and Dr. Samuels after that Cardiac catheterization done July [address] Samuels revealing severe multivessel [place] coronary artery disease. 3 out of 4 patent bypass grafts with the RATLIFF being atretic. 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 Andrew, had complex and prolonged recovery in [facility] secondary to UTI, sepsis, questionable anoxic brain injury Most recent 2D Echo done September 2019 showed LV cavity size is increased and wall thickness is mildly to moderatley increased LV systolic function is mildy decreased with EF 40-45%, diastolic dysfunction. RV systolic function is reduce, LA is mildly dilated measuring 4.8 cm, MV has moderately calcified annulus-sclerosis with mild stenosis. 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 Will continue to evaluate risk vs. benefit of holding coumadin. 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
--- NOTE | 2021-09-09 10:09 | Tele-ICU Progress Note ---
Subjective Date Seen by a Provider: Sep 09, 2021 Time Seen by a Provider: 10:08 Subjective/Events-last exam (Tele-ICU Physician , Progress Note ) Available chart/ vitals / labs / Images reviewed Video assessment done using teleICU camera, rest of exam as per RN Discussed with RN , EXAM PER RN Events overnight : Afebrile FiO2 - 2 L I/O = even Drips: Cardizem amd D5 1/2 100 Pressors: , hemodynamically stable Consultants: ninoska aviles Hospital course: (09/01) 86 Y admitted s/p mechanical fall at home, right LE compartment syndrome vs hematoma (09/07) Transfer to ICU d/t Afib on Cardizem ggt A/P right thigh hematoma, not a compartment syndrome as per orthoSx - as per sx - hb stable - ac on hold A fib, RVR 160- SINUS now - OFF IV Cardizem gtt - AC with Coumadin - ON HOLD Hypernatremia - d5 W 150/h and follow CAD, s/p CABG , s/p TAVR - EF 40-45% 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 - as per bedside MD - as per rn better , precedex Anemia - delutional Lines : periph (Central Line Necessity Reviewed) [place]: + OG: Nutrition: speech eval Analgesia: Anxiety/ delirium VTE Prophylaxis: on hold Stress Ulcer Prophylaxis: Plans in collaboration with bedside consultants and IM MDs. Discussed with RN to reach out if any questions or concerns A total of 32 minutes of critical care time was devoted to this patient today, required to treat and/or prevent further deterioration of critical care condition ( as above) . Sepsis Event Evaluation Height, Weight, BMI Height: '" Weight: lbs. oz. kg; 32.71 BMI Method: Exam Exam Patient acknowledged, consented, and participated in this virtual visit which was conducted using real time audio/video Vital Signs Date Time Temp Pulse Resp B/P (MAP) Pulse Ox O2 Delivery O2 Flow Rate FiO2 09/09/21 09:15 66 18 131/60 (83) 91 Nasal Cannula 2.00 09/09/21 09:00 60 15 111/54 (73) 91 Nasal Cannula 2.00 09/09/21 08:45 56 15 94/46 (62) 93 Nasal Cannula 2.00 09/09/21 08:35 Nasal Cannula 2.00 09/09/21 08:30 69 16 138/58 (84) 91 Nasal Cannula 3.00 09/09/21 08:15 53 19 121/61 (81) 95 Nasal Cannula 3.00 09/09/21 08:14 Nasal Cannula 3.00 09/09/21 08:00 3.00 09/09/21 08:00 59 16 106/58 (74) 94 Nasal Cannula 4.00 09/09/21 07:45 54 12 113/52 (72) 94 Nasal Cannula 4.00 09/09/21 07:39 36.2 09/09/21 07:30 54 18 115/64 (81) 93 Nasal Cannula 4.00 09/09/21 07:15 50 15 117/62 (80) 96 Nasal Cannula 4.00 09/09/21 07:00 45 09/09/21 07:00 44 14 91/45 (60) 93 Nasal Cannula 4.00 09/09/21 06:00 44 14 94/46 (62) 93 Nasal Cannula 4.00 09/09/21 05:00 47 15 99/48 (65) 95 Nasal Cannula 4.00 09/09/21 04:00 94 4.00 09/09/21 04:00 46 13 93/50 (64) 94 Nasal Cannula 4.00 09/09/21 04:00 36.0 09/09/21 03:00 50 16 116/55 (75) 94 Nasal Cannula 4.00 09/09/21 02:00 47 13 98/56 (70) 95 Nasal Cannula 4.00 09/09/21 01:00 49 15 86/50 (62) 94 Nasal Cannula 4.00 09/09/21 01:00 49 09/09/21 00:00 35.3 49 13 91/56 (68) 94 Nasal Cannula 4.00 09/09/21 00:00 94 4.00 09/08/21 23:00 50 14 93/51 (65) 94 Nasal Cannula 4.00 09/08/21 22:32 Nasal Cannula 4.00 09/08/21 22:00 57 15 93/53 (66) 95 Nasal Cannula 4.00 09/08/21 21:00 64 14 96/58 (71) 95 Nasal Cannula 4.00 09/08/21 20:00 75 16 96/59 (71) 94 Nasal Cannula 4.00 09/08/21 20:00 36.6 09/08/21 20:00 93 4.00 09/08/21 19:00 84 09/08/21 19:00 71 14 104/81 (89) 94 Nasal Cannula 4.00 09/08/21 18:00 77 11 93/55 (68) 96 Nasal Cannula 4.00 09/08/21 17:00 83 13 98/57 (71) 95 Nasal Cannula 4.00 09/08/21 16:39 86 124/61 09/08/21 16:30 93 4.00 09/08/21 16:00 87 11 124/61 (82) 93 Nasal Cannula 4.00 09/08/21 15:53 36.8 09/08/21 15:08 37.0 09/08/21 15:00 86 8 110/56 (74) Nasal Cannula 4.00 09/08/21 14:00 96 15 125/64 (84) Nasal Cannula 4.00 09/08/21 13:00 100 14 120/77 (91) 96 Nasal Cannula 4.00 09/08/21 12:52 98 09/08/21 12:00 87 18 97/52 (67) 92 Nasal Cannula 4.00 09/08/21 12:00 37.2 09/08/21 12:00 93 4.00 09/08/21 11:46 36.6 09/08/21 11:00 82 17 95/65 (75) Nasal Cannula 4.00 I & O 09/09/21 07:00 Intake Total 250 ml Output Total 1445 ml Balance -1195 ml Height & Weight Height: '" Weight: lbs. oz. kg; 32.71 BMI Method: General Appearance: No Apparent Distress, Chronically ill, Obese HEENT: PERRL/EOMI, Moist Mucous Membranes; No Scleral Icterus (L), No Scleral Icterus (R) Neck: Normal Inspection, Supple Respiratory: Lungs Clear, No Respiratory Distress Cardiovascular: Regular Rate, Rhythm, No Murmur Capillary Refill: Less Than 3 Seconds Gastrointestinal: normal bowel sounds, non tender, soft Extremity: Normal Inspection, Pedal Edema Neurologic/Psychiatric: Alert, Disoriented Skin: Normal Color, Warm/Dry Results Lab Laboratory Tests 09/08/21 04:35 09/09/21 04:30 Assessment/Plan Assessment/Plan ` GARRET VALENTIN MD Sep 09, 2021 10:09
[2021-09-09] MEDS: cefTRIAXone 1 GM PRE-MIX 50 ML IV SCH (12:14)
--- NOTE | 2021-09-09 12:34 | Speech Therapy Daily Note ---
Speech Daily Progress Note Subjective Date Seen by Provider: Sep 09, 2021 Time Seen by Provider: 11:30 The patient was seated upright in bed, awake and alert upon entrance to his room by the clinician. The patient has a sitter next to bedside. The patient is receiving 2L supplemental oxygen via nasal cannula and is agreeable to participation in the dysphagia treatment session. Following the evaluation on 09/09/21, the clinician recommended the patient be placed NPO. While the patient's tray has been appropriately held by nursing due to reduced alertness, a diet consistency remains present in the computer. This information was shared with the assigned RN at the initiation of the treatment session. Objective The patient remains upright in bed for safe swallowing position. The patient was provided six teaspoons of water, five teaspoons of nectar-thick liquid, ten straw drinks of nectar-thick liquid (totaling eight ounces), and four ounces of puree. - Initially, the patient does not display s/s of suspected aspiration with teaspoon sips of water or teaspoons of puree. Following approximately four teaspoons (of thin liquid and of puree), the patient demonstrated wet belching, facial grimacing, effortful swallowing, and throat clearing. The behaviors appear esophageal in nature as each is present following a slight delay from the swallow and the patient's vocal quality remains clear. With the thin liquid and the puree, the patient appears overall uncomfortable. - Overt s/s of suspected aspiration were not demonstrated with multiple boluses of nectar-thick liquid and the patient's vocal quality remained clear following each swallow. The patient's sitter remained present for the assessment on this date. Recommendations: - NECTAR-THICK liquid, clears- as tolerated. - Fully upright and alert for PO intake, only.Do not provide P.O. to the patient during periods of fatigue or decreased alertness. - Small, single sips, only. - 1:1 feeding assistance and monitoring. - Monitor for s/s of suspected aspiration with P.O. intake. If demonstrated, contact speech pathology. - Consider esophageal study for overall function of proximal clearance. - Speech pathology to monitor the patient's tolerance of the recommended diet consistency and upgrade if/when appropriate. The results and recommendations were discussed extensively with the patient and the assigned RN immediately following the treatment session. Assessment Assessment Current Status: Fair Progress Treatment Plan Continue Plan of Care Speech Short Term Goals Short Term Goals Short Term Goals 1. The patient will display continued participation in the clinical bedside swallowing re-evaluations to determine the least restrictive diet consistency. Time Frame-STG: Three Days. Speech Can Tester Goals Half-Way Goals 1. The patient will tolerate the least restrictive diet consistency without the s/s of suspected aspiration. Time Frame: One Week. Speech-Plan Treatment Plan Speech Therapy Treatment Plan: Continue Plan of Care Treatment Duration: Sep 15, 2021 Frequency: 3 times per week Estimated Hrs Per Day: .25 hour per day Rehab Potential: Poor Pt/Family Agrees to Plan: Yes Safety Risks/Education Teaching Recipient: Patient Teaching Methods: Discussion Response to Teaching: Unable to Comprehend Education Topics Provided: Results, Recommendations Time Speech Therapy Time In: 11:30 Speech Therapy Time Out: 11:55 Total Billed Time: 25 Billed Treatment Time 1, YURY George Sep 09, 2021 12:34
[2021-09-09] MEDS ORDERED: dilTIAZem DRIP PRE-MIX 125 ML IV SCH (15:15)
[2021-09-09] MEDS ORDERED: AMIODARONE FOR BOLUS 150 MG in NS (IVPB) 100 ML IV NR (15:26)
[2021-09-09] MEDS: dilTIAZem DRIP PRE-MIX 125 ML IV SCH ×2 (15:31→19:55)
[2021-09-09] MEDS: TAMSULOSIN 0.4 MG (FLOMAX) CAP PO SCH ×2 (16:09→20:14)
[2021-09-09] MEDS: AMIODARONE INJECTION 450 MG in D5W IV SOLUTION (EXCEL) 250 ML IV SCH ×2 (16:20→22:09)
[2021-09-09] MEDS ORDERED: HALOPERIDOL 5 MG/ML (HALDOL) VIAL IV PRN (18:00)
--- NOTE | 2021-09-09 18:16 | Progress Note - Hospitalist ---
Subjective HPI/CC On Admission Date Seen by Provider: Sep 09, 2021 Time Seen by Provider: 09:40 Pt is an 86yoCM with a PMH of dementia, HTN, HLD, BPH, history of TAVR on coumadin who presented to the ER due to a fall. He tripped over his own feet at home and fell and hit his leg on his coffee table. EMS was summoned due to severe pain. He was given 100mcg of Fentanyl in the ambulance without relief and continued to have pain. Just prior to my exam he got a dose of Dliaudid and was quite drowsy during our conversation and history is somewhat limited by that. Daughter states he is normally pretty healthy but is on Coumadin after a TAVR. He complains of pain in his leg and wanting something to drink and otherwise mostly just slept. Subjective/Events-last exam He says he is uncomfortable. He denies pain. He denies breathing trouble. He is not hungry. Objective Exam Vital Signs Vital Signs Date Time Temp Pulse Resp B/P (MAP) Pulse Ox O2 Delivery O2 Flow Rate FiO2 09/09/21 17:00 101 22 102/62 (75) 98 Room Air 09/09/21 12:00 1.00 09/09/21 07:39 36.2 Capillary Refill : Less Than 3 Seconds General Appearance: No Apparent Distress, WD/WN Respiratory: Lungs Clear, Normal Breath Sounds, No Respiratory Distress Cardiovascular: No Murmur, Irregularly Irregular Gastrointestinal: Normal Bowel Sounds, Soft Extremity: Non Tender, Pedal Edema Neurologic/Psychiatric: Alert, Oriented x3, Motor Weakness Skin: Normal Color, Warm/Dry Results/Procedures Lab Laboratory Tests 09/09/21 04:30 09/09/21 17:42 Patient resulted labs reviewed. Imaging: Reviewed Imaging Report Assessment/Plan Assessment and Plan Assess & Plan/Chief Complaint Right thigh hematoma Intractable pain Ortho following, monitoring closely Continue pain regimen, low dose fentanyl patch Hemoglobin trending down slightly TeleICU following Paroxysmal atrial flutter Continue telemetry Cardiology consulted, appreciate recs Resume warfarin Continue metoprolol Dementia Delirium Exacerbated by acute illness and hospitalization Precedex off Seems to be improved today HTN HLD BPH History of TAVR Anticoagulated on coumadin Continue home meds WIll likely need placement upon discharge Critical Care Critically Ill Patient Diagnosis/Problems Diagnosis/Problems (1) Hematoma of right thigh Status: Acute (2) Atrial flutter Status: Acute (3) Delirium Status: Acute (4) Dementia Status: Chronic JOANNE CARUSO MD Sep 09, 2021 18:15
[2021-09-09] MEDS: warFARin 5 MG (COUMADIN) TAB PO SCH (18:28)
[2021-09-09] MEDS: traZODone 50 MG (DESYREL) TAB PO SCH (20:14)
[2021-09-09] MEDS ORDERED: LACTATED RINGERS 1,000 ML IV ONE (22:27)
[2021-09-09] MEDS ORDERED: LACTATED RINGERS 1,000 ML IV SCH (22:30)
[2021-09-10] VITALS (8 sets, daily range): BP systolic 96–115; BP diastolic 39–72
[2021-09-10 05:05] LABS: INR 1.4 (0.8-1.4); PROTHROMBIN TIME PATIENT 17.8 SEC (12.2-14.7)
[2021-09-10 05:09] LABS: POTASSIUM 3.3 MMOL/L (3.6-5.0)
[2021-09-10 05:11] LABS: CALCIUM 8.3 MG/DL (8.5-10.1)
[2021-09-10 05:15] LABS: CREATININE SERUM 1.03 MG/DL (0.60-1.30); PHOSPHORUS 3.3 MG/DL (2.3-4.7)
[2021-09-10 05:17] LABS: MAGNESIUM 1.9 MG/DL (1.6-2.4)
[2021-09-10] MEDS: MAGNESIUM 1 GM/100 ML IVPB 100 ML IV SCH (05:27)
[2021-09-10] MEDS: inSUlin ASPART (NovoLOG) 1 UNIT/0.01 ML (CHARGE PER UNIT) SC SCH ×4 (05:28→20:13)
[2021-09-10] MEDS: POTASSIUM CL 10MEQ/50ML IVPB 50 ML IV SCH (05:28)
[2021-09-10] MEDS: KCL 20 MEQ TAB (K-DUR) PO SCH (05:30)
[2021-09-10 05:50] LABS: HEMATOCRIT 26 % (40-54); HEMOGLOBIN 8.3 g/dL (13.3-17.7); MEAN CORPUSCULAR HEMOGLOBIN 31 pg (25-34); MEAN CORPUSCULAR HGB CONC 32 g/dL (32-36); MEAN CORPUSCULAR VOLUME 97 fL (80-99); MEAN PLATELET VOLUME 11.8 fL (9.0-12.2); PLATELET COUNT 167 10^3/uL (130-400); WHITE BLOOD COUNT 14.1 10^3/uL (4.3-11.0)
[2021-09-10] MEDS ORDERED: KCL 20 MEQ TAB (K-DUR) PO NR ×2 (08:00→10:00)
[2021-09-10] MEDS: D5W 1000 ML IV SOLUTION 1,000 ML IV SCH ×2 (08:19→17:49)
[2021-09-10] MEDS: DOCUSATE SODIUM 100 MG (COLACE) CAP PO SCH ×2 (08:20→20:12)
[2021-09-10] MEDS: meTOprolol TARTRATE 50 MG (LOPRESSOR) TAB PO SCH ×2 (08:20→08:28)
[2021-09-10] MEDS: polyethylene glycoL POWDER 17 GM (MIRALAX) PACK PO SCH ×2 (08:20→20:12)
[2021-09-10] MEDS: PARoxetine 20 MG (PAXIL) TAB PO SCH (08:20)
--- NOTE | 2021-09-10 08:20 | Cardiology Progress Note ---
Subjective Date Seen by Provider: Sep 10, 2021 Time Seen by Provider: 08:15 Subjective/Events-last exam Patient is able to converse with me today. Patient knows his name and that he is in the hospital. Unsure of date. Patient states that his thigh is still bothering him and he is really thirsty. Patient HR was 52-56 sinus bradycardia. Patient is hypotensive today, holding rate medications and about to finish his 24 hr amiodarone dose Patient was seen at bedside, laying down comfortably, more awake and responsive appropriately. Still having pain in his thigh. Denied any chest pain. Review of Systems General: Fatigue HEENT: No Head Aches, No Visual Changes Pulmonary: Dyspnea; No Cough Cardiovascular: No: Chest Pain, Palpitations, Lt Headedness Gastrointestinal: No: Nausea, Vomiting Objective-Cardiology Exam Last Set of Vital Signs Vital Signs 09/10/21 08:00 Temp 36.2 Pulse Ox 92 O2 Delivery High Flow N/C O2 Flow Rate 5.00 I&O Intake and Output 09/10/21 00:00 Intake Total 3205 ml Output Total 1195 ml Balance 2010 ml Intake Oral 1955 ml IV Total 1250 ml Output Urine Total 1195 ml General: Alert, No Acute Distress, Other (oriented x2) HEENT: Atraumatic, PERRLA Neck: Supple Lungs: Clear to Auscultation, Normal Air Movement Heart: Normal S1, Normal S2, Other (bradycardia) Abdomen: Normal Bowel Sounds, Soft Extremities: No Clubbing, Normal Pulses, Other (bilateral peripheral edema, Right thigh swelling is improving) Skin: No Rashes, No Breakdown Neuro: Normal Speech Psych/Mental Status: Mood NL, Other (A+Ox2) Results Lab Laboratory Tests 09/09/21 17:42 09/10/21 04:30 09/10/21 05:33 A/P-Cardiology Admission Diagnosis Hematoma of the right thigh Paroxysmal atrial fibrillation Hypertension Change in mental status Assessment/Plan Paroxysmal atrial flutter, heart rate was 150. Converted to sinus rhythm on September 08, 2021. Having episodes of bradycardia at this point. Unable to tolerate diltiazem due to hypotension and bradycardia Tolerating metoprolol, I will decrease the dose. I am starting oral amiodarone and evaluate tolerance and response. History of paroxysmal atrial fibrillation was maintained on Coumadin and Toprol- XL as an outpatient. Thigh Contusion with Hematoma vs Compartment syndrome Currently holding coumadin, patient dorsalis pedis and posterior tibial pulses palpable bilaterally INR returned to normal. Still having swelling and tenderness in his right thigh, managed by Dr. Paez [id number] score of 6, yearly risk of stroke without oral anticoagulation is 9.8%. Coumadin was restarted, monitor INR Coronary artery disease History of CAB[place] [address] Bradshaw, has been followed by Dr. White and Dr. Samuels after that Cardiac catheterization done July [address] Samuels revealing severe multivessel [place] coronary artery disease. 3 out of 4 patent bypass grafts with the RATLIFF being atretic. 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 Andrew, had complex and prolonged recovery in [facility] secondary to UTI, sepsis, questionable anoxic brain injury Most recent 2D Echo done September 2019 showed LV cavity size is increased and wall thickness is mildly to moderatley increased LV systolic function is mildy decreased with EF 40-45%, diastolic dysfunction. RV systolic function is reduce, LA is mildly dilated measuring 4.8 cm, MV has moderately calcified annulus-sclerosis with mild stenosis. mod TR, PA 35-40 mmHg Hypertension, borderline hypotensive today. Holding metoprolol. 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 Will continue to evaluate risk vs. benefit of holding coumadin. 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 I reviewed and verified all information documented by the medical student and made modifications to such information, when appropriate. I personally performed the physical exam and medical decision making. I made few modification to the note using italic font Danitza Burnette Sep 10, 2021,09:19 ROHAN MARINELLI Sep 10, 2021 08:20 DANITZA BURNETTE MD Sep 10, 2021 09:19
[2021-09-10] MEDS: FINASTERIDE (PROSCAR) 5 MG TAB PO SCH (08:21)
[2021-09-10] MEDS: FUROSEMIDE 20 MG (LASIX) TAB PO SCH (08:21)
--- NOTE | 2021-09-10 08:48 | Tele-ICU Progress Note ---
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 oz. kg; 32.71 BMI Method: Exam Exam Patient acknowledged, consented, and participated in this virtual visit which was conducted using real time audio/video Vital Signs Date Time Temp Pulse Resp B/P (MAP) Pulse Ox O2 Delivery O2 Flow Rate FiO2 09/10/21 08:00 36.2 09/10/21 08:00 92 High Flow N/C 5.00 09/10/21 07:00 58 14 115/46 (69) 93 High Flow N/C 3.00 09/10/21 07:00 59 09/10/21 06:15 54 13 115/39 (64) 93 High Flow N/C 3.00 09/10/21 06:09 High Flow N/C 3.00 09/10/21 05:30 56 14 100/67 (78) 94 High Flow N/C 5.00 09/10/21 04:06 92 High Flow N/C 5.00 09/10/21 04:00 55 13 114/60 (78) 94 High Flow N/C 5.00 09/10/21 03:00 55 14 109/48 (68) 93 High Flow N/C 5.00 09/10/21 02:57 36.8 High Flow N/C 5.00 09/10/21 02:05 56 14 114/72 (86) 94 High Flow N/C 7.00 09/10/21 01:00 62 19 110/46 (67) 92 High Flow N/C 7.00 09/10/21 01:00 62 09/10/21 00:38 93 High Flow N/C 7.00 09/10/21 00:00 56 16 96/57 (70) 92 High Flow N/C 7.00 09/09/21 23:39 36.6 High Flow N/C 7.00 09/09/21 23:00 56 101/55 (70) 90 High Flow N/C 7.00 09/09/21 22:30 54 16 101/45 (63) 95 High Flow N/C 7.00 09/09/21 22:15 High Flow N/C 7.00 09/09/21 22:02 94 High Flow N/C 6.00 09/09/21 21:33 High Flow N/C 5.00 09/09/21 21:00 67 18 93/47 (62) 97 Room Air 09/09/21 20:02 161 114/45 (68) 100 Room Air 09/09/21 20:00 96 Room Air 09/09/21 19:50 172 09/09/21 19:39 36.8 Room Air 09/09/21 19:00 97 12 123/65 (84) 95 Room Air 09/09/21 19:00 97 09/09/21 18:45 90 18 108/53 (71) 94 Room Air 09/09/21 18:30 105 20 122/61 (81) 95 Room Air 09/09/21 18:15 107 15 126/57 (80) 91 Room Air 09/09/21 18:00 93 19 115/72 (86) 94 Room Air 09/09/21 17:45 101 15 123/59 (80) 91 Room Air 09/09/21 17:30 98 22 102/62 (75) 92 Room Air 09/09/21 17:15 113 19 120/68 (85) 87 Room Air 09/09/21 17:00 101 22 102/62 (75) 98 Room Air 09/09/21 16:45 107 22 98 Room Air 09/09/21 16:30 165 13 100/67 (78) 100 Room Air 09/09/21 16:15 118 39 93 Room Air 09/09/21 16:04 105/60 09/09/21 16:00 Room Air 09/09/21 16:00 110 14 100/67 (78) 94 Room Air 09/09/21 15:00 176 26 124/96 (105) 100 Room Air 09/09/21 14:00 99 19 112/61 (78) 100 Room Air 09/09/21 13:00 93 09/09/21 13:00 98 18 111/94 (100) 100 Room Air 09/09/21 12:05 Room Air 09/09/21 12:00 75 17 113/66 (82) 97 Nasal Cannula 1.00 09/09/21 12:00 Room Air 09/09/21 11:30 Room Air 09/09/21 11:00 60 15 112/53 (72) 96 Nasal Cannula 1.00 09/09/21 10:24 99 Nasal Cannula 1.00 09/09/21 10:00 68 10 100/43 (62) 98 Nasal Cannula 2.00 09/09/21 09:15 66 18 131/60 (83) 91 Nasal Cannula 2.00 09/09/21 09:00 60 15 111/54 (73) 91 Nasal Cannula 2.00 09/09/21 08:45 56 15 94/46 (62) 93 Nasal Cannula 2.00 I & O 09/10/21 06:59 Intake Total 3325 ml Output Total 1275 ml Balance 2050 ml Height & Weight Height: '" Weight: lbs. oz. kg; 32.71 BMI Method: General Appearance: No Apparent Distress, WD/WN, Other (confused at night) HEENT: PERRL/EOMI, Moist Mucous Membranes; No Scleral Icterus (L), No Scleral Icterus (R) Neck: Normal Inspection, Supple Respiratory: Lungs Clear, Normal Breath Sounds, No Respiratory Distress, Other (on nasal cannula) Cardiovascular: No Murmur, Bradycardia, Irregularly Irregular Capillary Refill: Less Than 3 Seconds Gastrointestinal: normal bowel sounds, non tender, soft Extremity: Non Tender, Pedal Edema (+1 edema with good peripheral pulses, right foot is cooler than left) Neurologic/Psychiatric: Alert, Oriented x3, Motor Weakness Skin: Normal Color, Warm/Dry Results Lab Laboratory Tests 09/09/21 04:30 09/09/21 17:42 09/10/21 04:30 09/10/21 05:33 Assessment/Plan Assessment/Plan RIght thigh hematoma-will treat conservatively A fib with RVR-under control, still on IV amiodarone, to be stopped later today Hx of TAVR HTN, BPH, HLD Critical Care: Critically Ill Patient Time spent with patient (mins): 25 RYAN REESE MD Sep 10, 2021 08:48
--- NOTE | 2021-09-10 10:21 | Progress Note - Ortho ---
Progress Note Subjective Date of Exam 09/10/21 Chief Complaint Right Thigh Pain HPI/Events since last exam verbal this AM, mild confusion, pain much better overall Review of Systems - Allergies: Coded Allergies: Sulfa (Sulfonamide Antibiotics) (Verified Allergy, Unknown, UNSURE OF REACTION, 07/06/21) Home Meds Reported Medications Trazodone HCl (Trazodone HCl) 50 Mg Tablet, 50 MG PO HS, TAB 11/21/20 Paroxetine HCl (Paroxetine HCl) 20 Mg Tablet, 20 MG PO DAILY, TAB 11/21/20 Warfarin Sodium (Warfarin Sodium) 5 Mg Tablet, 10 MG PO SUN,MO,,TH,FR, TAB TAKES AT 1700 TAKES 2 (5MG) TABS 11/21/20 Warfarin Sodium (Warfarin Sodium) 5 Mg Tablet, 5 MG PO WED,SAT, TAB TAKES AT 1700 11/21/20 Hydroxyzine Pamoate (Hydroxyzine Pamoate) 25 Mg Capsule, 25 MG PO TID PRN for ANXIETY, CAP 11/21/20 Metoprolol Succinate (Metoprolol Succinate) 25 Mg Tab.er.24h, 25 MG PO DAILY, TAB 06/11/20 Tamsulosin HCl (Flomax) 0.4 Mg Cap, 0.4 MG PO 1800, CAP 06/11/20 Atorvastatin Calcium (Atorvastatin Calcium) 10 Mg Tablet, 10 MG PO DAILY, TAB 05/15/20 Potassium Chloride (Potassium Chloride) 10 Meq Tab.er.prt, 10 MEQ PO DAILY 05/15/20 Furosemide (Furosemide) 20 Mg Tablet, 20 MG PO DAILY, TAB 05/15/20 Finasteride (Finasteride) 5 Mg Tablet, 5 MG PO DAILY, TAB 05/15/20 Objective Exam R Thigh: Compartments remain compressible, swelling has decreased, remains tender laterally and maybe moreso at knee, no pain with passive extension and flexion of knee, able to actively flex the knee 30 to 40 degrees Vital Signs Vital Signs Date Time Temp Pulse Resp B/P (MAP) Pulse Ox O2 Delivery O2 Flow Rate FiO2 09/10/21 09:44 92 High Flow N/C 3.00 09/10/21 09:00 52 12 118/55 94 High Flow N/C 3.00 09/10/21 08:00 36.2 09/10/21 08:00 56 15 92/37 96 High Flow N/C 3.00 09/10/21 08:00 92 High Flow N/C 5.00 09/10/21 07:00 58 14 115/46 (69) 93 High Flow N/C 3.00 09/10/21 07:00 59 09/10/21 06:15 54 13 115/39 (64) 93 High Flow N/C 3.00 09/10/21 06:09 High Flow N/C 3.00 09/10/21 05:30 56 14 100/67 (78) 94 High Flow N/C 5.00 09/10/21 04:06 92 High Flow N/C 5.00 09/10/21 04:00 55 13 114/60 (78) 94 High Flow N/C 5.00 09/10/21 03:00 55 14 109/48 (68) 93 High Flow N/C 5.00 09/10/21 02:57 36.8 High Flow N/C 5.00 09/10/21 02:05 56 14 114/72 (86) 94 High Flow N/C 7.00 09/10/21 01:00 62 19 110/46 (67) 92 High Flow N/C 7.00 09/10/21 01:00 62 09/10/21 00:38 93 High Flow N/C 7.00 09/10/21 00:00 56 16 96/57 (70) 92 High Flow N/C 7.00 09/09/21 23:39 36.6 High Flow N/C 7.00 09/09/21 23:00 56 101/55 (70) 90 High Flow N/C 7.00 09/09/21 22:30 54 16 101/45 (63) 95 High Flow N/C 7.00 09/09/21 22:15 High Flow N/C 7.00 09/09/21 22:02 94 High Flow N/C 6.00 09/09/21 21:33 High Flow N/C 5.00 09/09/21 21:00 67 18 93/47 (62) 97 Room Air 09/09/21 20:02 161 114/45 (68) 100 Room Air 09/09/21 20:00 96 Room Air 09/09/21 19:50 172 09/09/21 19:39 36.8 Room Air 09/09/21 19:00 97 12 123/65 (84) 95 Room Air 09/09/21 19:00 97 09/09/21 18:45 90 18 108/53 (71) 94 Room Air 09/09/21 18:30 105 20 122/61 (81) 95 Room Air 09/09/21 18:15 107 15 126/57 (80) 91 Room Air 09/09/21 18:00 93 19 115/72 (86) 94 Room Air 09/09/21 17:45 101 15 123/59 (80) 91 Room Air 09/09/21 17:30 98 22 102/62 (75) 92 Room Air 09/09/21 17:15 113 19 120/68 (85) 87 Room Air 09/09/21 17:00 101 22 102/62 (75) 98 Room Air 09/09/21 16:45 107 22 98 Room Air 09/09/21 16:30 165 13 100/67 (78) 100 Room Air 09/09/21 16:15 118 39 93 Room Air 09/09/21 16:04 105/60 09/09/21 16:00 Room Air 09/09/21 16:00 110 14 100/67 (78) 94 Room Air 09/09/21 15:00 176 26 124/96 (105) 100 Room Air 09/09/21 14:00 99 19 112/61 (78) 100 Room Air 09/09/21 13:00 93 09/09/21 13:00 98 18 111/94 (100) 100 Room Air 09/09/21 12:05 Room Air 09/09/21 12:00 75 17 113/66 (82) 97 Nasal Cannula 1.00 09/09/21 12:00 Room Air 09/09/21 11:30 Room Air 09/09/21 11:00 60 15 112/53 (72) 96 Nasal Cannula 1.00 09/09/21 10:24 99 Nasal Cannula 1.00 I & O 09/10/21 06:59 Intake Total 3325 ml Output Total 1275 ml Balance 2050 ml Lab Results Laboratory Tests 09/09/21 12:13: Glucometer 110 09/09/21 15:54: Glucometer 94 09/09/21 17:42: Sodium Level 145 09/10/21 04:25: Prothrombin Time 17.8H, INR Comment 1.4 09/10/21 04:30: Sodium Level 142, Potassium Level 3.3L, Chloride Level 104, Carbon Dioxide Level 24, Anion Gap 14, Blood Urea Nitrogen 32H, Creatinine 1.03, Estimat Glomerular Filtration Rate 71, BUN/Creatinine Ratio 31, Glucose Level 117H, Calcium Level 8.3L, Phosphorus Level 3.3, Magnesium Level 1.9 09/10/21 05:33: White Blood Count 14.1H, Red Blood Count 2.66L, Hemoglobin 8.3L, Hematocrit 26L, Mean Corpuscular Volume 97, Mean Corpuscular Hemoglobin 31, Mean Corpuscular Hemoglobin Concent 32, Red Cell Distribution Width 14.7H, Platelet Count 167, Mean Platelet Volume 11.8 Microbiology 09/08/21 MRSA Screen - Final, Complete MRSA not isolated 09/07/21 Blood Culture - Preliminary, Resulted No growth Assessment and Plan Assessment Right Thigh Hematoma Right Knee Pain Problem List Right Thigh Hematoma Right Knee Pain Plan Thigh significantly improved Still with ongoing tenderness over knee as well as laterally over his area of ecchymosis--will obtain knee x-rays Final Diagonsis Right Thigh Hematoma Right Knee Pain Level of the visit: Level 3 JUAN PUGH MD Sep 10, 2021 10:21
--- NOTE | 2021-09-10 10:24 | Speech Therapy Daily Note ---
Speech Daily Progress Note Subjective Date Seen by Provider: Sep 10, 2021 Time Seen by Provider: 09:53 The patient was lying in bed, sleeping upon entrance to his room by the clinician. The patient woke easily to a verbal greeting and was agreeable to participation in the dysphagia treatment session. The patient was positioned upright in bed by the clinician for safe swallowing. Per RN, the patient has consumed nectar-thick liquids and two teaspoons of applesauce with crushed medication and did not display any s/s of suspected aspiration. Objective The patient is receiving supplemental oxygen via nasal cannula. The patient's SpO2% was 94% with respirations at 12 bpm prior to P.O. trials. The patient's SpO2% and respirations remained stable throughout the treatment session. The patient was provided teaspoons of nectar-thick liquid, straw drinks of nectar-thick liquid, and teaspoons of puree. Overt s/s of suspected aspiration were not demonstrated with any P.O. trial provided. The patient did demonstrate a belching behavior following two trials of puree (four ounces total). A wet vocal quality was not demonstrated following each swallow. Recommendations: - Dysphagia one (puree) consistency diet with nectar-thick liquids, as tolerated. - Fully upright and ALERT for P.O. intake. - 1:1 assistance and monitoring during P.O. intake. - Small bites and sips, only. - Crush medication and place in puree for administration. - Monitor for s/s of suspected aspiration with PO intake. If demonstrated, contact speech pathology. - Speech pathology to monitor diet tolerance two to three times per week. The results and recommendations were shared immediately with the patient and the assigned RN. Assessment Assessment Current Status: Fair Progress Treatment Plan Continue Plan of Care Speech Short Term Goals Short Term Goals Short Term Goals 1. The patient will display continued participation in the clinical bedside swallowing re-evaluations to determine the least restrictive diet consistency. Time Frame-STG: Three Days. Speech Field Support Representative Goals Skilled Nursing Goals 1. The patient will tolerate the least restrictive diet consistency without the s/s of suspected aspiration. Time Frame: One Week. Speech-Plan Treatment Plan Speech Therapy Treatment Plan: Continue Plan of Care Treatment Duration: Sep 15, 2021 Frequency: 3 times per week Estimated Hrs Per Day: .25 hour per day Rehab Potential: Poor Pt/Family Agrees to Plan: Yes Safety Risks/Education Teaching Recipient: Patient Teaching Methods: Discussion Response to Teaching: Unable to Comprehend Education Topics Provided: Recommendations, Safe Swallowing Strategies Time Speech Therapy Time In: 09:53 Speech Therapy Time Out: 10:15 Total Billed Time: 22 Billed Treatment Time 1, YURY George Sep 10, 2021 10:24
[2021-09-10] MEDS: cefTRIAXone 1 GM PRE-MIX 50 ML IV SCH (11:25)
[2021-09-10] MEDS: FENTANYL PATCH REMOVAL TP SCH (11:33)
--- NOTE | 2021-09-10 11:56 | Diagnostic Imaging Report ---
INDICATION: Right knee pain. AP, oblique, and lateral views of the right knee are obtained. FINDINGS: No fracture or acute bony abnormality seen. Joint spaces are unremarkable. IMPRESSION: Negative right knee. Dictated by: Dictated on workstation # [id number]
[2021-09-10] MEDS: AMIODARONE INJECTION 450 MG in D5W IV SOLUTION (EXCEL) 250 ML IV SCH (13:44)
[2021-09-10] MEDS: hydrOXYzine (VISTARIL/ATARAX) 25 MG capsule/tablet PO PRN (14:14)
--- NOTE | 2021-09-10 15:30 | Physical Therapy Evaluation ---
PT Evaluation-General Medical Diagnosis Admission Date Sep 01, 2021 at 13:37 Medical Diagnosis: Compartment Syndrome R LE Onset Date: Sep 01, 2021 Therapy Diagnosis Therapy Diagnosis: impaired mobility, strength, endurance Precautions Precautions/Isolations: Aspiration, Fall Prevention, Standard Precautions Weight Bear Status Full Weight Bearing Full Weight Bearing Referral Physician: Haydee Reason for Referral: Evaluation/Treatment Medical History Pertinent Medical History: Atrial Fib, CABG, CAD, HTN Reviewed History: Yes Social History Home: Single Level Current Living Status: Alone Entry Into Home: Stairs With Railing PT Steps Into Home: 2 Prior Prior Level of Function SCALE: Activities may be completed with or without assistive devices. 6-Bqncivomzp-hextwwk completes the activity by him/herself with no assistance from a helper. 5-Set-up or Clean-up Assistance-helper sets up or cleans up; patient completes activity. [place] assists only prior to or following the activity. 4-Supervision or Touching Assistance-helper provides verbal cues and/or touching/steadying and/or contact guard assistance as patient completes activity. Assistance may be provided throughout the activity or intermittently. 3-Partial/Moderate Assistance-helper does LESS THAN HALF the effort. [place] lifts, holds or supports trunk or limbs, but provides less than half the effort. 2-Substantial/Maximal Assistance-helper does MORE THAN HALF the effort. [place] lifts or holds trunk or limbs and provides more than half the effort. 9-Tjmaurkaz-cmpldu does ALL the effort. Patient does none of the effort to compl ete the activity. Or, the assistance of 2 or more helpers is required for the patient to complete the activity. If activity was not attempted, code reason: 7-Patient Refused. 9-Not Applicable-not attempted and the patient did not perform the activity before the current illness, exacerbation or injury. 10-Not Attempted due to Environmental Limitations-(lack of equipment, weather restraints, etc.). 88-Not Attempted due to Medical Conditions or Safety Concerns. Bed Mobility: 6 Transfers (B,C,W/C): 6 Gait: 6 Stairs: 6 Indoor Mobility (Ambulation): Independent Stairs: Independent Prior Devices Use: None PT Evaluation-Current Subjective Patient in bed pre tx, agrees to PT, has unrated pain in right thigh. Patient does hold conversation now, confused, but pleasant. Pt/Family Goals none stated Objective Patient Orientation: Person, Confused Attachments: Oxygen, Arenas Catheter, IV ROM/Strength Strength Lower Extremities unable to test, patient cannot follow directions Sensory Vision: Functional Hearing: Functional Transfers Roll Left to Right (QC): 3 Sit to Lying (QC): 1 Lying to Sitting/Side of Bed(Q: 3 Sit to Stand (QC): 2 Patient was able to sit to the side of the bed with mod assist, stood twice with max assist. He could never bear any weight on his right leg due to pain and was never able to completely stand up straight. Patient was not agitated but was impulsive and trying to slide forward off the bed, assist of 2 to lay him back down. Balance Sitting Static: Fair Sitting Dynamic: Fair Standing Static: Poor Standing Dynamic: Poor Treatment attempted BLE supine exercises but patient declined Assessment/Needs Patient in bed post tx with nurse call, phone, tray, all needs met, bed alarm on. Patient has impaired mobility, strength, endurance. He can be impulsive, has poor safety awareness. Rehab Potential: Guarded PT Food Inspector Goals Correction Goals PT Food Inspector Goals Time Frame: Sep 16, 2021 Roll Left & Right (QC): 3 Sit to Lying (QC): 3 Lying-Sitting on Side/Bed(QC): 3 Sit to Stand (QC): 3 Chair/Ogd-ul-Tkfuf Xfer(QC): 3 Does the Patient Walk: No and Walking Goal IS indicated Walk 10 feet (QC): 3 Does the Pt use WC or Scooter?: No PT Plan Problem List Problem List: Activity Tolerance, Functional Strength, Safety, Balance, Gait, Transfer, Bed Mobility, ROM Treatment/Plan Treatment Plan: Continue Plan of Care Treatment Plan: Bed Mobility, Education, Functional Activity Inocencio, Functional Strength, Group Therapy, Gait, Safety, Therapeutic Exercise, Transfers Treatment Duration: Sep 16, 2021 Frequency: 6 times per week Estimated Hrs Per Day: .25 hour per day Patient and/or Family Agrees t: Yes Safety Risks/Education Patient Education: Correct Positioning, Safety Issues Teaching Recipient: Patient Teaching Methods: Demonstration, Discussion Response to Teaching: Reinforcement Needed Discharge Recommendations Plan Patient will perform bed mobility and transfer training, balance and endurance training, functional strengthening, stair training, gait training, and education, to improve functional mobility and independence at home. Therapy Discharge Recommendati: 24 Hour Supervision Time/GCodes Time In: 1503 Time Out: 1520 Total Billed Treatment Time: 17 Total Billed Treatment 1 visit LILLY 17' MITESH OHARA PT Sep 10, 2021 15:29
[2021-09-10] MEDS: TAMSULOSIN 0.4 MG (FLOMAX) CAP PO SCH (18:00)
[2021-09-10] MEDS ORDERED: warFARin 5 MG (COUMADIN) TAB PO SCH (18:00)
[2021-09-10] MEDS: AMIODARONE 200 MG (CORDARONE) TAB PO SCH (20:12)
[2021-09-10] MEDS: meTOprolol TARTRATE 25 MG (LOPRESSOR) TABLET PO SCH (20:12)
[2021-09-10] MEDS: traZODone 50 MG (DESYREL) TAB PO SCH (20:12)
--- NOTE | 2021-09-10 21:02 | Progress Note - Hospitalist ---
Subjective HPI/CC On Admission Date Seen by Provider: Sep 10, 2021 Time Seen by Provider: 08:50 Pt is an 86yoCM with a PMH of dementia, HTN, HLD, BPH, history of TAVR on coumadin who presented to the ER due to a fall. He tripped over his own feet at home and fell and hit his leg on his coffee table. EMS was summoned due to severe pain. He was given 100mcg of Fentanyl in the ambulance without relief and continued to have pain. Just prior to my exam he got a dose of Dliaudid and was quite drowsy during our conversation and history is somewhat limited by that. Daughter states he is normally pretty healthy but is on Coumadin after a TAVR. He complains of pain in his leg and wanting something to drink and otherwise mostly just slept. Subjective/Events-last exam He is feeling better today. He denies pain. He has no complaints. Objective Exam Vital Signs Vital Signs Date Time Temp Pulse Resp B/P (MAP) Pulse Ox O2 Delivery O2 Flow Rate FiO2 09/10/21 20:22 97 High Flow N/C 5.00 09/10/21 19:28 36.7 09/10/21 19:00 73 09/10/21 19:00 09/10/21 18:00 13 Capillary Refill : Less Than 3 Seconds General Appearance: No Apparent Distress, Chronically ill Respiratory: Lungs Clear, No Respiratory Distress Cardiovascular: No Murmur, Irregularly Irregular Gastrointestinal: Normal Bowel Sounds, Soft Extremity: Normal Inspection, No Pedal Edema Neurologic/Psychiatric: Alert, Normal Mood/Affect Skin: Normal Color, Warm/Dry Results/Procedures Lab Laboratory Tests 09/10/21 04:30 09/10/21 05:33 Patient resulted labs reviewed. Imaging: Reviewed Imaging Report Assessment/Plan Assessment and Plan Assess & Plan/Chief Complaint Right thigh hematoma Intractable pain Ortho following, monitoring closely Continue pain regimen, low dose fentanyl patch Hemoglobin trending down slightly TeleICU following Paroxysmal atrial flutter Continue telemetry Cardiology consulted, appreciate recs Resume warfarin Continue metoprolol Started on Amiodarone gtt Dementia Delirium Debility Exacerbated by acute illness and hospitalization Improving mental status PT/OT HTN HLD BPH History of TAVR Anticoagulated on coumadin Continue home meds WIll likely need placement upon discharge Diagnosis/Problems Diagnosis/Problems (1) Hematoma of right thigh Status: Acute (2) Atrial flutter Status: Acute (3) Delirium Status: Acute (4) Dementia Status: Chronic JOANNE CARUSO MD Sep 10, 2021 21:02
[2021-09-11] MEDS: D5W 1000 ML IV SOLUTION 1,000 ML IV SCH ×3 (03:05→22:06)
[2021-09-11 05:00] LABS: HEMATOCRIT 27 % (40-54); HEMOGLOBIN 8.4 g/dL (13.3-17.7); MEAN CORPUSCULAR HEMOGLOBIN 30 pg (25-34); MEAN CORPUSCULAR HGB CONC 31 g/dL (32-36); MEAN CORPUSCULAR VOLUME 96 fL (80-99); MEAN PLATELET VOLUME 11.7 fL (9.0-12.2); PLATELET COUNT 158 10^3/uL (130-400); WHITE BLOOD COUNT 11.8 10^3/uL (4.3-11.0)
[2021-09-11 05:05] LABS: INR 1.3 (0.8-1.4); PROTHROMBIN TIME PATIENT 16.8 SEC (12.2-14.7)
[2021-09-11 05:22] LABS: CALCIUM 8.3 MG/DL (8.5-10.1); CREATININE SERUM 0.84 MG/DL (0.60-1.30); MAGNESIUM 2.1 MG/DL (1.6-2.4); PHOSPHORUS 2.7 MG/DL (2.3-4.7); POTASSIUM 3.8 MMOL/L (3.6-5.0)
[2021-09-11] MEDS: MAGNESIUM 1 GM/100 ML IVPB 100 ML IV SCH (05:27)
[2021-09-11] MEDS: inSUlin ASPART (NovoLOG) 1 UNIT/0.01 ML (CHARGE PER UNIT) SC SCH ×4 (05:27→21:05)
[2021-09-11] MEDS: KCL 20 MEQ TAB (K-DUR) PO SCH (05:27)
[2021-09-11] MEDS: POTASSIUM CL 10MEQ/50ML IVPB 50 ML IV SCH (05:27)
--- NOTE | 2021-09-11 08:38 | Cardiology Progress Note ---
Subjective Date Seen by Provider: Sep 11, 2021 Time Seen by Provider: 08:36 Subjective/Events-last exam Patient is laying down in bed, still slightly confused but significant improvement in mental status. Review of Systems General: No Chills, No Night Sweats; Fatigue, Malaise; No Appetite, No Other HEENT: No Head Aches, No Visual Changes, No Eye Pain, No Ear Pain, No Dysphasia, No Sinus Congestion, No Post Nasal Drip, No Sore Throat, No Other Pulmonary: No Dyspnea, No Cough, No Pleuritic Chest Pain, No Other Cardiovascular: No: Chest Pain, Palpitations, Orthopnea, Paroxysmal Noc. Dyspnea, Edema, Lt Headedness, Other Objective-Cardiology Exam Last Set of Vital Signs Vital Signs 09/11/21 09/11/21 07:00 08:00 Temp 36.7 Pulse 79 Resp 21 B/P (MAP) 116/89 Pulse Ox 95 O2 Delivery High Flow N/C O2 Flow Rate 5.00 I&O Intake and Output 09/11/21 00:00 Intake Total 715 ml Output Total 1525 ml Balance -810 ml Intake Oral 715 ml Output Urine Total 1525 ml General: Alert, Cooperative, No Acute Distress, Other (oriented x2) HEENT: Atraumatic, PERRLA Neck: Supple Lungs: Clear to Auscultation, Normal Air Movement Heart: Normal S1, Normal S2, Other (bradycardia) Abdomen: Normal Bowel Sounds, Soft Extremities: No Clubbing, Normal Pulses, Other (bilateral peripheral edema, Right thigh swelling is improving) Skin: No Rashes, No Breakdown Neuro: Normal Speech Psych/Mental Status: Mood NL, Other (A+Ox2) Results Lab Laboratory Tests 09/11/21 04:45 A/P-Cardiology Admission Diagnosis Hematoma of the right thigh Paroxysmal atrial fibrillation Hypertension Change in mental status Assessment/Plan Paroxysmal atrial flutter, heart rate was 150. Converted to sinus rhythm on September 08, 2021. Having episodes of bradycardia at this point. Unable to tolerate diltiazem due to hypotension and bradycardia Tolerating metoprolol, continue to monitor Tolerating amiodarone well. Continue to monitor History of paroxysmal atrial fibrillation was maintained on Coumadin and Toprol- XL as an outpatient. Added amiodarone today. Thigh Contusion with Hematoma vs Compartment syndrome Currently holding coumadin, patient dorsalis pedis and posterior tibial pulses palpable bilaterally INR returned to normal. Still having swelling and tenderness in his right thigh, managed by Dr. Paez [id number] score of 6, yearly risk of stroke without oral anticoagulation is 9.8%. Coumadin was restarted, monitor INR Coronary artery disease History of CAB[place] [address] Bradshaw, has been followed by Dr. White and Dr. Samuels after that Cardiac catheterization done July [address] Samuels revealing severe multivessel [place] coronary artery disease. 3 out of 4 patent bypass grafts with the RATLIFF being atretic. 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 Andrew, had complex and prolonged recovery in [facility] secondary to UTI, sepsis, questionable anoxic brain injury Most recent 2D Echo done September 2019 showed LV cavity size is increased and wall thickness is mildly to moderatley increased LV systolic function is mildy decreased with EF 40-45%, diastolic dysfunction. RV systolic function is reduce, LA is mildly dilated measuring 4.8 cm, MV has moderately calcified annulus-sclerosis with mild stenosis. mod TR, PA 35-40 mmHg Hypertension, borderline hypotensive today. Holding metoprolol. 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 Will continue to evaluate risk vs. benefit of holding coumadin. 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
[2021-09-11] MEDS: AMIODARONE 200 MG (CORDARONE) TAB PO SCH ×2 (09:26→20:07)
[2021-09-11] MEDS: DOCUSATE SODIUM 100 MG (COLACE) CAP PO SCH ×2 (09:26→20:07)
[2021-09-11] MEDS: FINASTERIDE (PROSCAR) 5 MG TAB PO SCH (09:26)
[2021-09-11] MEDS: PARoxetine 20 MG (PAXIL) TAB PO SCH (09:26)
[2021-09-11] MEDS: polyethylene glycoL POWDER 17 GM (MIRALAX) PACK PO SCH ×2 (09:26→20:07)
[2021-09-11] MEDS: FUROSEMIDE 20 MG (LASIX) TAB PO SCH (09:26)
[2021-09-11] MEDS: meTOprolol TARTRATE 25 MG (LOPRESSOR) TABLET PO SCH ×2 (09:26→20:07)
--- NOTE | 2021-09-11 10:05 | Physical Therapy Daily Note ---
PT Daily Note-Current Subjective Patient more alert on this date. Sitter present. Mental Status Patient Orientation: Confused Attachments: Oxygen, A[place]as Catheter, IV Transfers SCALE: Activities may be completed with or without assistive devices. 2-Usyusmvots-rwbgzjh completes the activity by him/herself with no assistance from a helper. 5-Set-up or Clean-up Assistance-helper sets up or cleans up; patient completes activity. [place] assists only prior to or following the activity. 4-Supervision or Touching Assistance-helper provides verbal cues and/or touching/steadying and/or contact guard assistance as patient completes activity. Assistance may be provided throughout the activity or intermittently. 3-Partial/Moderate Assistance-helper does LESS THAN HALF the effort. [place] lifts, holds or supports trunk or limbs, but provides less than half the effort. 2-Substantial/Maximal Assistance-helper does MORE THAN HALF the effort. [place] lifts or holds trunk or limbs and provides more than half the effort. 5-Bdiygfxlz-fjqkty does ALL the effort. Patient does none of the effort to complete the activity. Or, the assistance of 2 or more helpers is required for the patient to complete the activity. If activity was not attempted, code reason: 7-Patient Refused. 9-Not Applicable-not attempted and the patient did not perform the activity before the current illness, exacerbation or injury. 10-Not Attempted due to Environmental Limitations-(lack of equipment, weather restraints, etc.). 88-Not Attempted due to Medical Conditions or Safety Concerns. Sit to Lying (QC): 1 (x 2) Lying to Sitting/Side of Bed(Q: 1 (x 2) Sit to Stand (QC): 1 (x 2 to FWW x 5 trials with 1 success for 5 seconds) Weight Bearing Full Weight Bearing Full Weight Bearing Exercises Supine Ex: Heel Slides Supine Reps: 4 (attempted ROM right LE with patient yelling and resisting due to thigh pain.) Assessment Current Status: Poor Progress Patient more alert on this date. Patient had severe left lean in seated position with PT correct. Patient not safe for OOB activity due to confusion and impulsive behavior with severely diminished safety awareness. PT Fpc Goals Fpc Goals PT Fpc Goals Time Frame: Sep 16, 2021 Roll Left & Right (QC): 3 Sit to Lying (QC): 3 Lying-Sitting on Side/Bed(QC): 3 Sit to Stand (QC): 3 Chair/Eyt-oa-Dmqiy Xfer(QC): 3 Does the Patient Walk: No and Walking Goal IS indicated Walk 10 feet (QC): 3 Does the Pt use WC or Scooter?: No PT Plan Treatment/Plan Treatment Plan: Continue Plan of Care Treatment Plan: Bed Mobility, Education, Functional Activity Inocencio, Functional Strength, Group Therapy, Gait, Safety, Therapeutic Exercise, Transfers Treatment Duration: Sep 16, 2021 Frequency: 6 times per week Estimated Hrs Per Day: .25 hour per day Patient and/or Family Agrees t: Yes Time/GCodes Time In: 945 Time Out: 959 Total Billed Treatment Time: 14 Total Billed Treatment 1 visit FA 14 min NENO BAILEY PT Sep 11, 2021 10:05
[2021-09-11] MEDS: cefTRIAXone 1 GM PRE-MIX 50 ML IV SCH (11:58)
[2021-09-11] MEDS: fentaNYL PATCH 12 MCG (DURAGESIC) TD SCH (12:06)
[2021-09-11] MEDS: hydrOXYzine (VISTARIL/ATARAX) 25 MG capsule/tablet PO PRN ×2 (14:57→22:21)
[2021-09-11] MEDS: dilTIAZem DRIP PRE-MIX 125 ML IV SCH (15:03)
[2021-09-11] MEDS ORDERED: warFARin 10 MG (COUMADIN) TAB PO NR (18:00)
--- NOTE | 2021-09-11 18:17 | Progress Note - Hospitalist ---
Subjective HPI/CC On Admission Date Seen by Provider: Sep 11, 2021 Time Seen by Provider: 08:55 Pt is an 86yoCM with a PMH of dementia, HTN, HLD, BPH, history of TAVR on coumadin who presented to the ER due to a fall. He tripped over his own feet at home and fell and hit his leg on his coffee table. EMS was summoned due to severe pain. He was given 100mcg of Fentanyl in the ambulance without relief and continued to have pain. Just prior to my exam he got a dose of Dliaudid and was quite drowsy during our conversation and history is somewhat limited by that. Daughter states he is normally pretty healthy but is on Coumadin after a TAVR. He complains of pain in his leg and wanting something to drink and otherwise mostly just slept. Subjective/Events-last exam He remains intermittently confused. He denies pain. He has no complaints. Objective Exam Vital Signs Vital Signs Date Time Temp Pulse Resp B/P (MAP) Pulse Ox O2 Delivery O2 Flow Rate FiO2 09/11/21 18:00 72 124/54 99 High Flow N/C 6.00 09/11/21 16:00 36.6 09/11/21 15:58 20 Capillary Refill : Greater Than 3 Seconds General Appearance: No Apparent Distress, Chronically ill, Obese Respiratory: Lungs Clear, No Respiratory Distress Cardiovascular: Regular Rate, Rhythm, No Murmur Gastrointestinal: Normal Bowel Sounds, Soft Extremity: Normal Inspection, No Pedal Edema Neurologic/Psychiatric: Alert, Normal Mood/Affect Skin: Normal Color, Warm/Dry Results/Procedures Lab Laboratory Tests 09/11/21 04:45 Patient resulted labs reviewed. Imaging: Reviewed Imaging Report Assessment/Plan Assessment and Plan Assess & Plan/Chief Complaint Right thigh hematoma Intractable pain Ortho following, monitoring closely Continue pain regimen, low dose fentanyl patch Hemoglobin trending down slightly TeleICU following Paroxysmal atrial flutter Continue telemetry Cardiology consulted, appreciate recs Continue warfarin Monitor INR Continue metoprolol Continue Amiodarone Dementia Delirium Debility Exacerbated by acute illness and hospitalization Improving mental status PT/OT HTN HLD BPH History of TAVR Anticoagulated on coumadin Continue home meds Planning for SNF [place] tomorrow Diagnosis/Problems Diagnosis/Problems (1) Hematoma of right thigh Status: Acute (2) Atrial flutter Status: Acute (3) Delirium Status: Acute (4) Dementia Status: Chronic JOANNE CARUSO MD Sep 11, 2021 18:17
[2021-09-11] MEDS: warFARin 5 MG (COUMADIN) TAB PO SCH (18:48)
[2021-09-11] MEDS: traZODone 50 MG (DESYREL) TAB PO SCH (20:07)
[2021-09-12 04:21] LABS: HEMATOCRIT 26 % (40-54); HEMOGLOBIN 8.2 g/dL (13.3-17.7); MEAN CORPUSCULAR HEMOGLOBIN 30 pg (25-34); MEAN CORPUSCULAR HGB CONC 31 g/dL (32-36); MEAN CORPUSCULAR VOLUME 97 fL (80-99); MEAN PLATELET VOLUME 11.9 fL (9.0-12.2); PLATELET COUNT 168 10^3/uL (130-400); WHITE BLOOD COUNT 11.7 10^3/uL (4.3-11.0)
[2021-09-12 04:33] LABS: INR 1.5 (0.8-1.4); PROTHROMBIN TIME PATIENT 18.1 SEC (12.2-14.7)
[2021-09-12 04:42] LABS: POTASSIUM 3.7 MMOL/L (3.6-5.0)
[2021-09-12 04:43] LABS: CALCIUM 8.4 MG/DL (8.5-10.1)
[2021-09-12 04:47] LABS: PHOSPHORUS 2.6 MG/DL (2.3-4.7)
[2021-09-12 04:48] LABS: CREATININE SERUM 0.83 MG/DL (0.60-1.30)
[2021-09-12] MEDS: POTASSIUM CL 10MEQ/50ML IVPB 50 ML IV SCH (04:49)
[2021-09-12 04:50] LABS: MAGNESIUM 2.1 MG/DL (1.6-2.4)
[2021-09-12] MEDS: KCL 20 MEQ TAB (K-DUR) PO SCH (04:50)
[2021-09-12] MEDS: inSUlin ASPART (NovoLOG) 1 UNIT/0.01 ML (CHARGE PER UNIT) SC SCH (04:50)
[2021-09-12] MEDS: MAGNESIUM 1 GM/100 ML IVPB 100 ML IV SCH (04:56)
[2021-09-12] MEDS: meTOprolol TARTRATE 25 MG (LOPRESSOR) TABLET PO SCH (08:07)
[2021-09-12] MEDS: FUROSEMIDE 20 MG (LASIX) TAB PO SCH (08:07)
[2021-09-12] MEDS: polyethylene glycoL POWDER 17 GM (MIRALAX) PACK PO SCH (08:07)
[2021-09-12] MEDS: AMIODARONE 200 MG (CORDARONE) TAB PO SCH (08:08)
[2021-09-12] MEDS: PARoxetine 20 MG (PAXIL) TAB PO SCH (08:08)
[2021-09-12] MEDS: DOCUSATE SODIUM 100 MG (COLACE) CAP PO SCH (08:08)
[2021-09-12] MEDS: FINASTERIDE (PROSCAR) 5 MG TAB PO SCH (08:08)
--- NOTE | 2021-09-12 08:44 | Tele-ICU Progress Note ---
Subjective Date Seen by a Provider: Sep 11, 2021 Time Seen by a Provider: 10:17 Subjective/Events-last exam (Tele-ICU Physician , Progress Note ) Available chart/ vitals / labs / Images reviewed Video assessment done using teleICU camera, rest of exam as per RN Discussed with RN , EXAM PER RN Events overnight : Afebrile FiO2 - 2 L I/O = even Drips: Cardizem amd D5 1/2 100 Pressors: , hemodynamically stable Consultants: ninoska aviles Hospital course: (09/01) 86 Y admitted s/p mechanical fall at home, right LE compartment syndrome vs hematoma (09/07) Transfer to ICU d/t Afib on Cardizem ggt A/P hypoxia - mil;d , o2 5L - follow right thigh hematoma, not a compartment syndrome as per orthoSx - as per sx - hb stable - ac on hold A fib, RVR 160- SINUS now - OFF IV Cardizem gtt - Unable to tolerate diltiazem due to hypotension and bradycardia- on metoprolol now - amio po - as per cards - AC with Coumadin - ON HOLD Hypernatremia - d5 W 150/h and follow CAD, s/p CABG , s/p TAVR - EF 40-45% 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 with h/o dememtia - as per bedside MD - as per rn better , precedex Anemia - delutional Pulm HTN - ECHO mod TR, PA 35-40 mmHg Lines : periph (Central Line Necessity Reviewed) Arenas: + OG: Nutrition: speech eval Analgesia: Anxiety/ delirium VTE Prophylaxis: on hold Stress Ulcer Prophylaxis: Plans in collaboration with bedside consultants and IM MDs. Discussed with RN to reach out if any questions or concerns A total of 32 minutes of critical care time was devoted to this patient today, required to treat and/or prevent further deterioration of critical care condition ( as above) . Sepsis Event Evaluation Height, Weight, BMI Height: '" Weight: lbs. oz. kg; 32.71 BMI Method: Exam Exam Patient acknowledged, consented, and participated in this virtual visit which was conducted using real time audio/video Vital Signs Date Time Temp Pulse Resp B/P (MAP) Pulse Ox O2 Delivery O2 Flow Rate FiO2 09/12/21 08:00 74 14 128/55 92 High Flow N/C 5.00 09/12/21 07:00 68 14 108/63 92 High Flow N/C 5.00 09/12/21 07:00 70 09/12/21 06:14 36.5 64 14 109/57 100 High Flow N/C 5.00 09/12/21 05:14 57 18 111/51 100 High Flow N/C 5.00 09/12/21 04:13 36.1 59 14 115/63 98 High Flow N/C 5.00 09/12/21 03:36 99 High Flow N/C 5.00 09/12/21 03:31 60 16 123/63 100 High Flow N/C 5.00 09/12/21 02:18 36.3 62 16 113/53 99 High Flow N/C 5.00 09/12/21 01:01 63 15 120/58 98 High Flow N/C 5.00 09/12/21 01:00 60 09/12/21 00:21 36.5 58 16 103/65 99 High Flow N/C 5.00 09/12/21 00:21 99 High Flow N/C 5.00 09/11/21 23:02 59 18 114/59 98 High Flow N/C 5.00 09/11/21 22:01 64 20 124/61 100 High Flow N/C 5.00 09/11/21 21:37 36.1 60 18 122/56 100 High Flow N/C 5.00 09/11/21 21:05 36.1 61 18 121/53 100 High Flow N/C 5.00 09/11/21 19:46 36.2 58 18 124/54 99 High Flow N/C 5.00 09/11/21 19:33 99 High Flow N/C 5.00 09/11/21 19:00 60 09/11/21 18:00 72 124/54 99 High Flow N/C 6.00 09/11/21 17:00 64 114/55 100 High Flow N/C 5.00 09/11/21 16:00 64 111/48 100 High Flow N/C 5.00 09/11/21 16:00 97 High Flow N/C 5.00 09/11/21 16:00 36.6 09/11/21 15:58 63 20 111/45 97 High Flow N/C 5.00 09/11/21 15:10 58 20 111/53 100 High Flow N/C 5.00 09/11/21 15:00 62 111/53 100 High Flow N/C 5.00 09/11/21 14:00 61 110/60 100 High Flow N/C 5.00 09/11/21 13:00 55 09/11/21 13:00 54 107/48 94 High Flow N/C 5.00 09/11/21 12:00 52 100/69 95 High Flow N/C 5.00 09/11/21 11:54 97 High Flow N/C 5.00 09/11/21 11:19 97 High Flow N/C 5.00 09/11/21 11:00 55 107/40 96 High Flow N/C 5.00 09/11/21 10:00 67 20 138/60 97 High Flow N/C 5.00 09/11/21 09:00 65 9 109/42 96 High Flow N/C 5.00 I & O 09/12/21 07:00 Intake Total 1950 ml Output Total 2625 ml Balance -675 ml Height & Weight Height: '" Weight: lbs. oz. kg; 32.71 BMI Method: General Appearance: No Apparent Distress, Chronically ill, Obese HEENT: PERRL/EOMI, Moist Mucous Membranes; No Scleral Icterus (L), No Scleral Icterus (R) Neck: Normal Inspection, Supple Respiratory: Lungs Clear, No Respiratory Distress Cardiovascular: Regular Rate, Rhythm, No Murmur Capillary Refill: Greater Than 3 Seconds Gastrointestinal: normal bowel sounds, non tender, soft Extremity: Normal Inspection, No Pedal Edema Neurologic/Psychiatric: Alert, Normal Mood/Affect Skin: Normal Color, Warm/Dry Results Lab Laboratory Tests 09/11/21 04:45 09/12/21 04:07 Assessment/Plan Assessment/Plan ` GARRET VALENTIN MD Sep 12, 2021 08:44
--- NOTE | 2021-09-12 09:44 | Cardiology Progress Note ---
Subjective Date Seen by Provider: Sep 12, 2021 Time Seen by Provider: 09:42 Subjective/Events-last exam Patient was seen at bedside, laying down comfortably, initially he was sleeping woke up and was answering appropriately but continued to fall asleep while I am visiting with him Review of Systems General: No Chills, No Night Sweats; Fatigue, Malaise; No Appetite, No Other HEENT: No Head Aches, No Visual Changes, No Eye Pain, No Ear Pain, No Dysphasia, No Sinus Congestion, No Post Nasal Drip, No Sore Throat, No Other Pulmonary: No Dyspnea, No Cough, No Pleuritic Chest Pain, No Other Cardiovascular: No: Chest Pain, Palpitations, Orthopnea, Paroxysmal Noc. Dyspnea, Edema, Lt Headedness, Other Objective-Cardiology Exam Last Set of Vital Signs Vital Signs 09/12/21 09/12/21 06:14 09:00 Temp 36.5 Pulse 60 Resp 13 B/P (MAP) 90/49 Pulse Ox 96 O2 Delivery High Flow N/C O2 Flow Rate 5.00 I&O Intake and Output 09/11/21 23:59 Intake Total 2910 ml Output Total 3775 ml Balance -865 ml Intake Oral 810 ml IV Total 2100 ml Output Urine Total 3775 ml General: Alert, Cooperative, No Acute Distress, Other (oriented x2) HEENT: Atraumatic, PERRLA Neck: Supple Lungs: Clear to Auscultation, Normal Air Movement Heart: Normal S1, Normal S2, Other (bradycardia) Abdomen: Normal Bowel Sounds, Soft Extremities: No Clubbing, Normal Pulses, Other (bilateral peripheral edema, Right thigh swelling is improving) Skin: No Rashes, No Breakdown Neuro: Normal Speech Psych/Mental Status: Mood NL, Other (A+Ox2) Results Lab Laboratory Tests 09/12/21 04:07 A/P-Cardiology Admission Diagnosis Hematoma of the right thigh Paroxysmal atrial fibrillation Hypertension Change in mental status Assessment/Plan Paroxysmal atrial flutter, heart rate was 150. Converted to sinus rhythm on September 08, 2021. Unable to tolerate diltiazem due to hypotension and bradycardia Tolerating metoprolol, and amiodarone, continue to monitor. Okay to transfer to telemetry History of paroxysmal atrial fibrillation was maintained on Coumadin, restarted Toprol and added amiodarone, tolerating current medications well. Continue to monitor Thigh Contusion with Hematoma vs Compartment syndrome Currently holding coumadin, patient dorsalis pedis and posterior tibial pulses palpable bilaterally INR returned to normal. Still having swelling and tenderness in his right thigh, managed by Dr. Paez [id number] score of 6, yearly risk of stroke without oral anticoagulation is 9.8%. Coumadin was restarted, monitor INR Coronary artery disease History [place] CAB[place] [address] Bradshaw, has been followed by Dr. White and Dr. Samuels after that Cardiac catheterization done July [address] Samuels revealing severe multivessel [place] coronary artery disease. 3 out of 4 patent bypass grafts with the RATLIFF being atretic. 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 Andrew, had complex and prolonged recovery in [facility] secondary to UTI, sepsis, questionable anoxic brain injury Most recent 2D Echo done September 2019 showed LV cavity size is increased and wall thickness is mildly to moderatley increased LV systolic function is mildy decreased with EF 40-45%, diastolic dysfunction. RV systolic function is reduce, LA is mildly dilated measuring 4.8 cm, MV has moderately calcified annulus-sclerosis with mild stenosis. mod TR, PA 35-40 mmHg Hypertension, borderline hypotensive today. Holding metoprolol. 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 Will continue to evaluate risk vs. benefit of holding coumadin. 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
[2021-09-12] MEDS ORDERED: HYDR-3781 PO (10:36)
[2021-09-12] MEDS ORDERED: FINA5TAB6 PO (10:36)
[2021-09-12] MEDS ORDERED: METO-333 PO (10:36)
[2021-09-12] MEDS ORDERED: ATOR10TA66 PO (10:36)
[2021-09-12] MEDS ORDERED: WARF-48 PO ×2 (10:36)
[2021-09-12] MEDS ORDERED: TMSL.4C PO (10:36)
[2021-09-12] MEDS ORDERED: PARO20TA5 PO (10:36)
[2021-09-12] MEDS ORDERED: FURO20TA4 PO (10:36)
[2021-09-12] MEDS ORDERED: POTA10TA37 PO (10:36)
[2021-09-12] MEDS ORDERED: TRZ50T PO (10:36)
[2021-09-12] MEDS ORDERED: AMIO200T65 PO (10:36)
--- NOTE | 2021-09-12 11:07 | Discharge Summary ---
Discharge Summary Reconcile Patient Problems Problems Reviewed?: Yes Hospital Course Hospital Course Date of Admission: Sep 01, 2021 at 13:37 Admission Diagnosis: Thigh hematoma Family Physician/Provider: Jonathan Begum MD Date of Discharge: 09/12/21 Discharge Diagnosis: Thigh hematoma, atrial flutter on warfarin, delirium with underlying dementia Hospital Course: Craig Hopkins is an 86 year old male with PMH dementia, HTN, HLD, BPH, TAVR, atrial flutter, anticoagulated on warfarin, who was admitted with right thigh hematoma. Orthopedic surgery was consulted and assisted with his care. He required pain medications for his thigh pain. His blood thinners were held. His hemoglobin dropped and then stabilized. He did not require any blood transfusions. He had issues with delirium on dementia which improved. He was debilitated and worked with physical and occupational therapy. He had issues with dysphagia and speech therapy recommended pureed with nectar thick liquids. He was discharged to [facility] for ongoing skilled needs. Labs and Pending Lab Test: Laboratory Tests 09/11/21 11:11: Glucometer 143H 09/11/21 15:56: Glucometer 115H 09/11/21 20:19: Glucometer 118H 09/12/21 04:07: White Blood Count 11.7H, Red Blood Count 2.70L, Hemoglobin 8.2L, Hematocrit 26L, Mean Corpuscular Volume 97, Mean Corpuscular Hemoglobin 30, Mean Corpuscular Hemoglobin Concent 31L, Red Cell Distribution Width 14.7H, Platelet Count 168, Mean Platelet Volume 11.9, Prothrombin Time 18.1H, INR Comment 1.5H, Sodium Level 142, Potassium Level 3.7, Chloride Level 105, Carbon Dioxide Level 26, Ani on [place] 11, Blood Urea Nitrogen 15, Creatinine 0.83, Estimat Glomerular Filtration Rate 86, BUN/Creatinine Ratio 18, Glucose Level 106H, Calcium Level 8.4L, Phosphorus Level 2.6, Magnesium Level 2.1 Microbiology 09/08/21 MRSA Screen - Final, Complete MRSA not isolated 09/07/21 Blood Culture - Preliminary, Resulted Gram Positive Cocci in Chains Home Meds Active Metoprolol Tartrate 25 Mg Tablet 25 Mg PO BID 30 Days Amiodarone HCl 200 Mg Tablet 200 Mg PO BID 30 Days Trazodone HCl 50 Mg Tablet 50 Mg PO HS 30 Days Paroxetine HCl 20 Mg Tablet 20 Mg PO DAILY 30 Days Warfarin Sodium 5 Mg Tablet 10 Mg PO SUN,MO,,TH,FR 30 Days TAKES AT 1700 TAKES 2 (5MG) TABS Warfarin Sodium 5 Mg Tablet 5 Mg PO WED,SAT 30 Days TAKES AT 1700 Hydroxyzine Pamoate 25 Mg Capsule 25 Mg PO TID PRN 30 Days Flomax (Tamsulosin HCl) 0.4 Mg Cap 0.4 Mg PO 1800 30 Days Atorvastatin Calcium 10 Mg Tablet 10 Mg PO DAILY 30 Days Potassium Chloride 10 Meq Tab.er.prt 10 Meq PO DAILY 30 Days Furosemide 20 Mg Tablet 20 Mg PO DAILY 30 Days Finasteride 5 Mg Tablet 5 Mg PO DAILY 30 Days Reported Metoprolol Succinate 25 Mg Tab.er.24h 25 Mg PO DAILY Instructions to Patient/Family Assessment/Instructions See instructions Follow Up Appt.: next half-way rounds Skilled NF Admit to: [facility] Certification (SNF) I certify that SNF services are required to be given on an inpatient basis because of the above named patient's need for fdc care on a continuing basis for the conditions(s) for which he/she was receiving inpatient hospital services prior to his/her transfer to the SNF. [facility] Facility Order: Nursing Services, President-Evaluate & Treat, Physical Therapy-Evaluate & Treat, Speech Language-Evaluate & Treat, Wound Care-Eval/Treat Oxygen Delivery Method: Nasal Cannula Oxygen Flow Rate L/min (Range): PRN Discharge Diet: Other Diet Daily Activity as Tolerated: Yes Resuscitation Status: Full Code Joanne Caruso Sep 12, 2021 10:46 Discharge Physical Exam General: Alert, Cooperative, No Acute Distress Lungs: Clear to Auscultation, Normal Air Movement Heart: Normal S1, Normal S2, No Murmurs, Other (irregularly irregular) Abdomen: Normal Bowel Sounds, Soft, No Tenderness Extremities: No Edema, No Tenderness/Swelling Psych/Mental Status: Mood NL JOANNE CARUSO MD Sep 12, 2021 11:00
--- NOTE | 2021-09-12 15:23 | Physician Query Clarification ---
Physician Query-General Query to Physician: The medical record reflects the following clinical evidence: Clinical Indicators: INR 2.7 on admission Decreased to 1.3, relatively low velocity injury, significant pain and swelling to Right thigh, Per ortho "right thigh Hematoma". Hgb in 06/2021 13.9 This admission as low as 8.2, Risk Factor(s): On Coumadin, Hit leg on coffee table Treatment: Held coumadin, Frequent monitoring of INR and H and H 1. 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 Other explanation of clinical findings 3. Unable to determine (no explanation for clinical findings) Please clarify and document your clinical opinion in the progress notes and discharge summary including the definitive and/or presumptive diagnosis, (suspected or probable), related to the above clinical findings. Please include clinical findings supporting your diagnosis. Jyoti Jernigan MSN, RN Clinical Windshield Wiper Repairer [phone] [email or web address] PHYSICIAN RESPONSE: Based on the clinical findings in the record, please respond to the query above on this document as an addendum. Physician Response: Physician Response Bleeding on coumadin If you have questions please contact: Voice Over Announcer: Ext: Thank you for your time and cooperation. Clinical Windshield Wiper Repairer/Voice Over Announcer This is a permanent part of the medical rec ord JYOTI JERNIGAN Sep 12, 2021 15:23 JOANNE CARUSO MD Sep 24, 2021 17:56
[2021-09-13] MEDS ORDERED: warFARin 5 MG (COUMADIN) TAB PO SCH (18:00)
--- NOTE | 2021-09-15 02:03 | Physician Query Clarification ---
PQ-Intro New Diagnosis Admission/Discharge Admission Date: Sep 01, 2021 at 13:37 Discharge Date: Sep 12, 2021 at 12:08 JOANNE Garcia MD The medical record reflects the following clinical scenario: History/Risk Factors: 86 y/o male patient had history of atrial flutter on Coumadin, admitted with fall with right thigh hematoma. Clinical Findings: INR 2.7 on admission Decreased to 1.3, relatively low [place] injury, significant pain and swelling to right thigh, per ortho "right thigh Hematoma", hgb is low as 8.2. Treatment: Held coumadin, Frequent monitoring of INR and H and H. Question: What condition best reflects the above clinical scenario? Please document a response in the Progress Noter or Discharge Summary. 1. 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 Other, with explanation of the clinical findings. 3. Clinically undetermined, no explanation for the clinical findings. PHYSICIAN RESPONSE What condition reflects above: Other, explanation/clinical finding Explanation of clincal finding Bleeding on coumadin Please remember a lack of response to the above will prompt a phone page by CDI/Coding staff. In responding to this query, please exercise your independent professional judgment. The purpose of this communication is to more accurately reflect the complexity of your patients condition. The fact that a question is asked does not imply that any particular answer is desired or expected. Thank you for your timely response to this clarification. Requestors name: [ ] Phone # [ ] THIS PHYSICIAN QUERY FORM IS A PERMANENT PART OF THE MEDICAL RECORD ALISTAIR GLEASON Sep 15, 2021 02:03 JOANNE CARUSO MD Sep 24, 2021 17:57
== END 2021-09-12 12:08 | disposition home or self-care (01) | DRG 605 ==
LOC: ER 09:56 → EDUNIT# 09:56 → INTOOBSV 13:37 → 4TH 13:37 → UNDOADMOB 13:37 → OBSVTOIN 13:37 → ICU 09-07 17:16 → 4TH 09-07 17:16 → ICU 09-07 17:16 → UNDODISIN 09-12 12:08
PROVIDERS: ADMIT Family Medicine; ATTEND Internal Medicine
DX: S70.11XA Contusion of right thigh, initial encounter (principal); E87.0 Hyperosmolality and hypernatremia; I48.92 Unspecified atrial flutter; Z95.1 Presence of aortocoronary bypass graft; Z86.711 Personal history of pulmonary embolism; I48.0 Paroxysmal atrial fibrillation; I25.10 Atherosclerotic heart disease of native coronary artery without angina pectoris; Z86.718 Personal history of other venous thrombosis and embolism; E78.00 Pure hypercholesterolemia, unspecified; I10 Essential (primary) hypertension; F03.90 Unspecified dementia, unspecified severity, without behavioral disturbance, psychotic disturbance, mood disturbance, and anxiety; Z86.73 Personal history of transient ischemic attack (TIA), and cerebral infarction without residual deficits; K21.9 Gastro-esophageal reflux disease without esophagitis; F32.A Depression, unspecified; Z79.01 Long term (current) use of anticoagulants; Z79.899 Other long term (current) drug therapy; N40.0 Benign prostatic hyperplasia without lower urinary tract symptoms; Z95.2 Presence of prosthetic heart valve; E66.9 Obesity, unspecified; W01.0XXA Fall on same level from slipping, tripping and stumbling without subsequent striking against object, initial encounter; D72.829 Elevated white blood cell count, unspecified; R13.10 Dysphagia, unspecified; D64.9 Anemia, unspecified; R09.02 Hypoxemia; I27.20 Pulmonary hypertension, unspecified; Z68.29 Body mass index [BMI] 29.0-29.9, adult
CPT/HCPCS: 36410; 36415; 71045; 72192; 73502; 73552; 73562; 76937; 80048; 80053; 81000; 82947; 83735; 84100; 84145; 84295; 85007; 85027; 85610; 86850; 86900; 86901; 87040; 87081; 93005; 93306; 94760; 96374; 96375; 96376

== ENCOUNTER 2022-03-17 12:16 | Inpatient (IN) | payer MEDICARE, OTHER ==
[~2022-03-17] VITALS: Ht 170.2 cm; Wt 93.6 kg
[~2022-03-17 12:16] MED LIST changes: +AMIO200T65 PO; +BUPR-105 PO; -BUPR150T14 PO; +METO-333 PO; +POTA-177 PO; -POTA10TA37 PO
[2022-03-17] MEDS ORDERED: CALCIUM CARBONATE 500 MG (TUMS) TAB.CHEW PO PRN (13:45)
[2022-03-17] MEDS ORDERED: LACTULOSE SYRUP 10GM/15ML (ENULOSE) 30ML UDC PO PRN (13:45)
[2022-03-17] MEDS ORDERED: LOPERAMIDE 2 MG (IMODIUM) TABLET PO PRN (13:45)
[2022-03-17] MEDS ORDERED: DOCUSATE SODIUM 100 MG (COLACE) CAP PO PRN (13:45)
[2022-03-17] MEDS ORDERED: FLEET ENEMA ADULT 1 EA BTL PR PRN (13:45)
[2022-03-17] MEDS ORDERED: diphenhydrAMINE 25 MG TAB (BENADRYL) PO PRN (13:45)
[2022-03-17] MEDS ORDERED: ONDANSETRON 4 MG (ZOFRAN) ORAL DISSOLVE TAB PO PRN (13:45)
[2022-03-17] MEDS ORDERED: guaiFENesin/CODEINE (ROBITUSSIN AC) 10ML UDC PO PRN (13:45)
[2022-03-17] MEDS ORDERED: BISACODYL 10 MG SUPP (DULCOLAX) PR PRN (13:45)
[2022-03-17] MEDS ORDERED: ACETAMINOPHEN 325 MG TABLET PO PRN (13:45)
[2022-03-17 14:00] VITALS: BP 128/62
[2022-03-17] MEDS ORDERED: OMEP40CA6 PO (14:41)
[2022-03-17] MEDS ORDERED: ALLO100T PO (14:41)
[2022-03-17] MEDS ORDERED: BUPR150T24 PO (14:41)
[2022-03-17] MEDS ORDERED: WRF10T PO (14:49)
[2022-03-17] MEDS ORDERED: MTP25TSR PO (14:49)
[2022-03-17] MEDS ORDERED: WARF-48 PO (14:49)
[2022-03-17] MEDS ORDERED: QUET50TA PO (14:49)
--- NOTE | 2022-03-17 15:21 | Physical Therapy Evaluation ---
PT Evaluation-General Medical Diagnosis Admission Date Mar 17, 2022 at 14:17 Medical Diagnosis: debility/UTI Onset Date: Mar 17, 2022 Therapy Diagnosis Therapy Diagnosis: impaired mobility/weakness Precautions Precautions/Isolations: Fall Prevention, Standard Precautions Referral Physician: Leo Reason for Referral: Evaluation/Treatment Medical History Pertinent Medical History: Atrial Fib, CABG, CAD, HTN History of Falls (past yr): Yes Prior Surgery (last 100 days): No Current History Direct admit from home secondary to debility/weakness and UTI with multiple falls at home. Reviewed History: Yes Social History Home: Single Level Current Living Status: Children Entry Into Home: Stairs With Railing PT Steps Into Home: 3 Prior Prior Level of Function SCALE: Activities may be completed with or without assistive devices. 8-Jwkguqdcus-joldnqx completes the activity by him/herself with no assistance from a helper. 5-Set-up or Clean-up Assistance-helper sets up or cleans up; patient completes activity. [place] assists only prior to or following the activity. 4-Supervision or Touching Assistance-helper provides verbal cues and/or touching/steadying and/or contact guard assistance as patient completes activity. Assistance may be provided throughout the activity or intermittently. 3-Partial/Moderate Assistance-helper does LESS THAN HALF the effort. [place] lifts, holds or supports trunk or limbs, but provides less than half the effort. 2-Substantial/Maximal Assistance-helper does MORE THAN HALF the effort. [place] lifts or holds trunk or limbs and provides more than half the effort. 1-Uwakdqigh-otifnd does ALL the effort. Patient does none of the effort to complete the activity. Or, the assistance of 2 or more helpers is required for the patient to complete the activity. If activity was not attempted, code reason: 7-Patient Refused. 9-Not Applicable-not attempted and the patient did not perform the activity before the current illness, exacerbation or injury. 10-Not Attempted due to Environmental Limitations-(lack of equipment, weather restraints, etc.). 88-Not Attempted due to Medical Conditions or Safety Concerns. Bed Mobility: 6 Transfers (B,C,W/C): 6 Gait: 4 Stairs: 4 Wheelchair Mobility: 4 Indoor Mobility (Ambulation): Needed Some Help Stairs: Needed Some Help Prior Devices Use: Manual wheelchair, Walker PT Evaluation-Current Subjective Patient agrees to PT. Family present. Pain Numeric Pain Scale: 0-No Pain Location: No Pain Reported Section J - Health Conditions 1. Rarely or not at all 2. Occasionally 3. Frequently 4. Almost constantly 8. Unable to answer Pain Effect on Sleep: 8 Pain Interference with Therapy: 8 Pain Interference w/Day-to-Day: 8 Objective Patient Orientation: Person, Time, Situation ROM/Strength ROM Lower Extremities bilateral LE WFL Strength Lower Extremities right knee flexion/extension 3+/5; hip flexion 3/5; DF/PF 3/5 left knee flexion/extension 3+/5; hip flexion 3/5; DF/PF 3/5 Integumentary/Posture Integumentary refer to nursing notes Bowel Incontinence: No Bladder Incontinence: Yes Posture slight trunk flexed posture Neuromuscular (Tone, Coordination, Reflexes) diminished coordination/proprioception and sequencing (retropulsive with sit to stand transfers) Sensory Vision: Functional Hearing: Functional Sensation Right Lower Extremit: Intact Sensation Left Lower Extremity: Intact Transfers Roll Left & Right (QC): 6 Sit to Lying (QC): 6 Lying to Sitting/Side of Bed(Q: 6 Sit to Stand (QC): 3 Chair/Kkr-nn-Zflgc Xfer(QC): 3 Toilet Transfer (QC): 3 Car Transfer (QC): 4 Patient is impulsive to sit without proper approach (does not turn to sit will impulsive "launch" self to sit). Severely diminished safety awareness. Gait Does the Patient Walk?: Yes Mode of Locomotion: Both Anticipated Mode of Locomotion: Both Walk 10 feet (QC): 3 Walk 50 ft with 2 Turns(QC): 3 Walk 150 ft (QC): 3 Walking 10ft/uneven surface-QC: 3 Distance: 150' x 3 Gait Assistive Device: FWW Comments/Gait Description NBOS/slight shuffle gait sequence Wheelchair Training Does the Pt Use a Wheelchair?: Yes Wheel 50 ft with 2 turns (QC): 88 Wheel 150 ft (QC): 88 Type of Wheelchair: Manual Stairs #of Steps: 8 1 Step (curb) (QC): 3 4 Steps (QC): 3 12 Steps (QC): 88 (not safe to perform due to weakness) Balance Sitting Static: Normal Sitting Dynamic: Normal Standing Static: Fair Standing Dynamic: Poor Picking up an Object (QC): 88 Treatment OT/PT cotreat due to skill of 2 clinicians required which a rehabilitation clerk could not perform in order to coordinate UE/LEs, decrease fall risk, and due to pt's limitations in fatigue, activity tolerance, and transfers/mobility. OT focused on UE placement, cues for sequencing and safety, and ADLS, PT focused on LE placement, gross overall movement, transfers/mobility. Pt completed showering, dressing, and oral care in bathroom, SBA with mobility/transfers. PT addressed standing tolerance with OT addressing fine motor skills with bolt/screw activity Assessment/Needs Patient will benefit from skilled PT to address functional strength and mobility to improve current LOF. Patient currently requires minimal to moderate assist with all sit to stand transfer. Patient is retropulsive with all sit to stand with PT correct. Rehab Potential: Fair PT Food Preparation Worker Goals Detention Goals PT Detention Goals Time Frame: Apr 18, 2022 PT OT Pain Eval : Numeric Pain Scale: 0-No Pain Location: No Pain Reported Scoring Section J - Health Conditions 1. Rarely or not at all 2. Occasionally 3. Frequently 4. Almost constantly 8. Unable to answer Pain Effect on Sleep: 8 Pain Interference with Therapy: 8 Pain Interference w/Day-to-Day: 8 Roll Left to Right (QC): 6 Sit to Lying (QC): 6 Lying-Sitting on Side/Bed(QC): 6 Sit to Stand (QC): 4 Chair/Iwl-aw-Iidov Xfer(QC): 4 Car Transfer (QC): 6 Does the Patient Walk: Yes Walk 10 feet (QC): 5 Walk 10ft-Uneven Surface(QC): 5 Walk 50ft with 2 Turns (QC): 5 Walk 150 ft (QC): 5 Gait Assistive Device: FWW Does the Pt use WC or Scooter?: Yes Wheel 50 feet with 2 turns (QC: 4 Stairs (FIM): 4 # of Steps: 12 1 Step (curb) (QC): 4 4 Steps (QC): 4 12 Steps (QC): 4 Picking up an Object (QC): 4 PT Plan Problem List Problem List: Activity Tolerance, Functional Strength, Safety, Balance, Gait, Transfer, Bed Mobility Treatment/Plan Treatment Plan: Continue Plan of Care Treatment Plan: Bed Mobility, Concurrent Therapy, Education, Functional Activity Inocencio, Functional Strength, Group Therapy, Gait, Safety, Therapeutic Exercise, Transfers Treatment Duration: Apr 18, 2022 Frequency: At least 5 of 7 days/Wk (IRF) Estimated Hrs Per Day: 1.5 hours per day Patient and/or Family Agrees t: Yes Safety Risks/Education Patient Education: Gait Training, Steps Teaching Recipient: Patient Teaching Methods: Demonstration, Discussion Response to Teaching: Verbalize Understanding Time/GCodes Time In: 1400 Time Out: 1510 Total Billed Treatment Time: 60 Total Billed Treatment 1 visit EVModC 10 min ([id number]) (OT eval [id number]) FA x 3 50 min Cotreat with OT NENO BAILEY PT Mar 17, 2022 15:21
--- NOTE | 2022-03-17 15:47 | IRF PAI BIMS ---
BIMS BIMS IRF ROSSY BIMS: IRF ROSSY BIMS Response (Comments) Value Expression of Ideas and Wants (Verbal/Non Verbal) Difficulty (3) 2 Understanding Verbal Content Sometimes Understands (2) 1 Should Brief Interview for Mental Status be Conducted Yes Repitition of Three Words Two (2 points) 2 What year is it right now? Missed Year (2 points) 0 What month is it right now? Accurate within 5 days (2 points) 0 What week is it now? Incorrect or N/A (0 points) 0 Recalls Socks Yes, No Cue Required (2 points) 2 Recalls Blue Yes, After Cueing (Color) (1 point) 1 Recalls Bed Yes, No Cue Required (2 points) 2 Total 10 Brief Interview/Mental Status: No Notes: Score 04/28 HALLE FRANK OT Mar 17, 2022 15:47
--- NOTE | 2022-03-17 15:48 | Occupational Therapy Eval ---
OT Evaluation-General/PLF Medical Diagnosis Admission Date Mar 17, 2022 at 14:17 Medical Diagnosis: debility/UTI Onset Date: Mar 17, 2022 Therapy Diagnosis Therapy Diagnosis: decreased ADL status, impaired cognition Precautions Precautions/Isolations: Fall Prevention, Standard Precautions Referral Physician: Leo Referral Reason: Evaluation/Treatment Medical History Pertinent Medical History: Atrial Fib, CABG, CAD, Dementia, HTN Additional Medical History BPH, TAVR Current History Direct admit to ARU from home with debility and UTI requiring IV antibiotics. Social History Home: Single Level Current Living Status: Children (daughter) Entry Into Home: Stairs With Railing Steps Into Home: 3 ADL-Prior Level of Function SCALE: Activities may be completed with or without assistive devices. 9-Azxzrsljkl-mzzfphh completes the activity by him/herself with no assistance from a helper. 5-Set-up or Clean-up Assistance-helper sets up or cleans up; patient completes activity. [place] assists only prior to or following the activity. 4-Supervision or Touching Assistance-helper provides verbal cues and/or to uching/steadying and/or contact guard assistance as patient completes activity. Assistance may be provided throughout the activity or intermittently. 3-Partial/Moderate Assistance-helper does LESS THAN HALF the effort. [place] lifts, holds or supports trunk or limbs, but provides less than half the effort. 2-Substantial/Maximal Assistance-helper does MORE THAN HALF the effort. [place] lifts or holds trunk or limbs and provides more than half the effort. 4-Nzppsgtum-zwxryw does ALL the effort. Patient does none of the effort to complete the activity. Or, the assistance of 2 or more helpers is required for the patient to complete the activity. If activity was not attempted, code reason: 7-Patient Refused. 9-Not Applicable-not attempted and the patient did not perform the activity before the current illness, exacerbation or injury. 10-Not Attempted due to Environmental Limitations-(lack of equipment, weather restraints, etc.). 88-Not Attempted due to Medical Conditions or Safety Concerns. ADL PLOF Comments Pt used FWW and manual w/c around house with some assistance (daughter's noted pt to be more retropulsive lately and keeps walker too far away). With ADLs, pt was independent with eating, requires total assist with socks/shoes and pants, min A with shirts, and min A with showering (assist BLES). Self Care: Needed Some Help Functional Cognition: Needed Some Help DME/Equipment: Bath Chair, Shower OT Current Status Subjective Pt agreeable to OT evaluation and OT/PT cotreatment. He denies pain. Mental Status/Objective Patient Orientation: Person, Confused, Place Acute Mental Status Change: 1 Inattention: 1 Disorganized thinkin Altered level of consciousness: 0 Current Glasses/Contacts: No Hearing Aids: No Dentures/Partials: Yes (partials at home) Upper Extremity ROM BUE shoulder flexion to approx 150 degrees Upper Extremity Coordination slightly decreased Upper Extremity Sensation pt denies tingling/numbness Upper Extremity Strength grossly 3+/5 ADL-Treatment Eating (QC): 5 (set up with containers and cutting food. ) Oral Hygiene (QC): 4 (CGA standing at sink, min verbal cues for sequencing) Shower/Bathe Self (QC): 4 (CGA in stand, min verbal cues for seuqencing and safety.) Upper Body Dressing (QC): 3 (Pt doffed with SBA, min A for orientation with donning.) Lower Body Dressing (QC): 3 (Pt doffed with CGA. Pt able to thread BLEs into pants but required min A with pulling pants on, pt able to complete panthike. ) On/Off Footwear (QC): 4 (SBA with doffing/donning for safety. No cues required.) Toileting Hygiene (QC): 4 (CGA. Pt able to urinate standing at toilet) Other Treatments OT evaluation complete, then OT/PT cotreat due to skill of 2 clinicians required which a rehabilitation program manager could not perform in order to coordinate UE/LEs, decrease fall risk, and due to pt's limitations in fatigue, activity tolerance, and transfers/mobility. OT focused on UE placement, cues for sequencing and safety, and ADLS, PT focused on LE placement, gross overall movement, transfers/mobility. Pt completed functional mobility and transfers, then completed ADLs in room as outlined above. Pt used FWW to transfer to therapy gym. In order to increase dynamic standing balance, cognition, fine motor coordination and activity tolerance, pt completed nut/bolt task. Pt initially instructed to remove nuts/bolts, turn around and place back on the block. Pt had difficulty following instructions, even with maximal cues. Instead, pt instructed to remove all nuts/bolts and place on table, required min cues for this. Pt took 4 seated rest breaks with task. Pt used FWW to return to room, transferring to recliner. Post tx, pt in recliner, call light in reach and all needs met, chair alarm activated. Min-Mod A with sit to stand transfers, retropulsive and VCs for UE placement, . Pt is impulsive, requiring VCs for safety with all stand to sit transfers as pt "launches" self to sit. Education OT Patient Education: Correct positioning, Energy conservation, Exercise program, Modified ADL techniques, Progress toward Goal/Update tx plan, Purpose of tx/functional activities, Rehab process, Safety issues, Transfer techniques Teaching Recipient: Patient Teaching Methods: Discussion Response to Teaching: Verbalize Understanding, Reinforcement Needed OT Short Term Goals Short Term Goals Time Frame: Mar 27, 2022 Upper body dressin Lower body dressin Putting on/taking off footwear: 5 OT Senior Living Goals Senior Living Goals Time Frame: Apr 10, 2022 Acute change in mental status: 0 Inattention: 0 Disorganized thinkin Altered level of consciousness: 0 Eating (QC): 6 Oral Hygiene (QC): 6 Toileting Hygiene (QC): 6 Shower/Bathe Self (QC): 6 Upper Body Dressing (QC): 6 Lower Body Dressing (QC): 6 On/Off Footwear (QC): 6 Additional Goals: 1-Demonstrate ADL Tasks, 2-Verbalize Understanding, 3- ImproveStrength/Inocencio 1=Demonstrate adherence to instructed precautions during ADL tasks. 2=Patient will verbalize/demonstrate understanding of assistive devices/modifications for ADL. 3=Patient will improve strength/tolerance for activity to enable patient to perform ADL's. OT Education/Plan Problem List/Assessment Assessment: Decreased Activ Tolerance, Decreased Safety Aware, Decreased UE Strength, Impaired Funct Balance, Impaired I ADL's, Impaired Self-Care Skills Discharge Recommendations Plan/Recommendations: Continue POC Treatment Plan/Plan of Care Patient would benefit from OT for education, treatment and training to promote independence in ADL's, mobility, safety and/or upper extremity function for ADL's. Plan of Care: ADL Retraining, Functional Mobility, Group Exercise/Act as Ind, UE Funct Exercise/Act Treatment Duration: Apr 10, 2022 Frequency: At least 5 of 7 days/Wk (IRF) Estimated Hrs Per Day: 1.5 hours per day Agreement: Yes Rehab Potential: Fair Time/GCodes Start Time: 14:00 Stop Time: 15:40 Total Time Billed (hr/min): 90 Billed Treatment Time 6102-8619 OT eval (10'), 8316-1126 PT eval (not billed), [id number] Cotreat (80') 1, EVM (10'), ADL 3 (45), FA 2 (35) HALLE FRANK OT Mar 17, 2022 15:48
--- NOTE | 2022-03-17 15:49 | Physical Therapy Daily Note ---
PT Daily Note-Current Subjective Patient sitting on therapy mat upon PT arrival, agreeable to treatment. Patient currently with OT, will continue to co-treat with OT due to the patients need for 2 skilled clinicians to appropriately address decreased balance, poor tolerance to activity and incorporate functional ADLs. Pain Section J - Health Conditions 1. Rarely or not at all 2. Occasionally 3. Frequently 4. Almost constantly 8. Unable to answer Pain Effect on Sleep: 8 Pain Interference with Therapy: 8 Pain Interference w/Day-to-Day: 8 Transfers SCALE: Activities may be completed with or without assistive devices. 7-Vjgrotulpe-vrkvfbx completes the activity by him/herself with no assistance from a helper. 5-Set-up or Clean-up Assistance-helper sets up or cleans up; patient completes activity. [place] assists only prior to or following the activity. 4-Supervision or Touching Assistance-helper provides verbal cues and/or touching/steadying and/or contact guard assistance as patient completes activity. Assistance may be provided throughout the activity or intermittently. 3-Partial/Moderate Assistance-helper does LESS THAN HALF the effort. [place] lifts, holds or supports trunk or limbs, but provides less than half the effort. 2-Substantial/Maximal Assistance-helper does MORE THAN HALF the effort. [place] lifts or holds trunk or limbs and provides more than half the effort. 2-Uyrvwhiax-ujzxsb does ALL the effort. Patient does none of the effort to complete the activity. Or, the assistance of 2 or more helpers is required for the patient to complete the activity. If activity was not attempted, code reason: 7-Patient Refused. 9-Not Applicable-not attempted and the patient did not perform the activity before the current illness, exacerbation or injury. 10-Not Attempted due to Environmental Limitations-(lack of equipment, weather restraints, etc.). 88-Not Attempted due to Medical Conditions or Safety Concerns. Sit to Stand (QC): 4 Chair/Qrh-rx-Mxwvm Xfer(QC): 4 Weight Bearing Right Lower Extremity: Right Full Weight Bearing Left Lower Extremity: Left Full Weight Bearing Gait Training Distance: 75 feet Walk 10 feet (QC): 4 Walk 50 ft with 2 Turns(QC): 4 Gait Persons Needed: 1 Gait Assistive Device: FWW Treatments Patient performs standing dynamic activity with fine motor activities of UE. Assessment Current Status: Fair Progress Patient tolerated treatment fair. Patient will be co-treated with OT due to the patients need for 2 skilled clinicians to appropriately address decreased balance, poor tolerance to activity and incorporate functional ADLs. Patient performs standing dynamic activity with fine motor activities of UE, with CGA and verbal cues for safety, balance, posture and performance of activity. [place] unable to perform given task accurately and demonstrates poor standing balance during activity. Patient was given multiple verbal cues in performing task and unable to do so. Patient mild shaking in his thighs during the last set of of standing dynamic, however appears as if his LE might give out during this activity. Patient ambulates 75 feet with FWW, with CGA and verbal cues for safety, posture, progression and balance. Patient in chair post treatment with all needs met, nursing notified, call light in hand, and chair alarm activated. PT Senior Care Goals Information Coordinator Goals PT Senior Care Goals Time Frame: Apr 18, 2022 Roll Left & Right (QC): 6 Sit to Lying (QC): 6 Lying-Sitting on Side/Bed(QC): 6 Sit to Stand (QC): 4 Chair/Xix-yf-Wetsz Xfer(QC): 4 Toilet Transfer (QC): 4 Car Transfer (QC): 6 Does the Patient Walk: Yes Walk 10 feet (QC): 5 Walk 50ft with 2 Turns (QC): 5 Walk 150 ft (QC): 5 Walking 10ft on Uneven Surface: 5 1 Step (curb) (QC): 4 4 Steps (QC): 4 12 Steps (QC): 4 Picking up an Object (QC): 4 Does the Pt use WC or Scooter?: Yes Wheel 50 feet with 2 turns (QC: 4 Type: Manual Wheel 150 feet: 4 Type: Manual PT Plan Problem List Problem List: Activity Tolerance, Functional Strength, Safety, Balance, Gait, Transfer, Bed Mobility, ROM Treatment/Plan Treatment Plan: Continue Plan of Care Treatment Plan: Bed Mobility, Concurrent Therapy, Education, Functional Activity Inocencio, Functional Strength, Group Therapy, Gait, Safety, Therapeutic Exercise, Transfers Treatment Duration: Apr 18, 2022 Frequency: At least 5 of 7 days/Wk (IRF) Estimated Hrs Per Day: 1.5 hours per day Patient and/or Family Agrees t: Yes Safety Risks/Education Patient Education: Gait Training, Transfer Techniques Teaching Recipient: Patient Teaching Methods: Demonstration, Discussion Response to Teaching: Reinforcement Needed Time/GCodes Time In: 1509 Time Out: 1540 Total Billed Treatment Time: 30 Total Billed Treatment Visit FA x 2 30 min Cotreat with OT MEGHANA MORA PT Mar 17, 2022 15:49
[2022-03-17 15:56] LABS: BASOPHILS # (AUTO) 0.1 10^3/uL (0.0-0.1); BASOPHILS % (AUTO) 1 % (0-10); EOSINOPHILS # (AUTO) 0.3 10^3/uL (0.0-0.3); EOSINOPHILS % (AUTO) 3 % (0-10); HEMATOCRIT 42 % (40-54); HEMOGLOBIN 13.3 g/dL (13.3-17.7); LYMPHOCYTES # (AUTO) 1.5 X 10^3 (1.0-4.0); LYMPHOCYTES % (AUTO) 16 % (12-44); MEAN CORPUSCULAR HEMOGLOBIN 29 pg (25-34); MEAN CORPUSCULAR HGB CONC 32 g/dL (32-36); MEAN CORPUSCULAR VOLUME 92 fL (80-99); MEAN PLATELET VOLUME 11.5 fL (9.0-12.2); MONOCYTES % (AUTO) 11 % (0-12); NEUTROPHILS # (AUTO) 6.2 X 10^3 (1.8-7.8); NEUTROPHILS % (AUTO) 68 % (42-75); PLATELET COUNT 246 10^3/uL (130-400); WHITE BLOOD COUNT 9.1 10^3/uL (4.3-11.0)
[2022-03-17] MEDS: MEROPENEM 500 MG/NS 100 ML IVPB IV SCH ×4 (15:57→21:13)
[2022-03-17] MEDS ORDERED: FLU QUAD HIGH DOSE 240 MCG/0.7 ML 2022-23 (FLUZONE) IM ONE (16:00)
[2022-03-17 16:14] LABS: ALBUMIN 3.9 GM/DL (3.2-4.5); BILIRUBIN,TOTAL 0.7 MG/DL (0.1-1.0); CALCIUM 9.4 MG/DL (8.5-10.1); CREATININE SERUM 1.27 MG/DL (0.60-1.30); POTASSIUM 4.2 MMOL/L (3.6-5.0); TOTAL PROTEIN 7.5 GM/DL (6.4-8.2)
--- NOTE | 2022-03-17 16:19 | Progress Note ---
FANTA DAVID 03/17/22 1619: Progress Note CC: UTI and debility with multiple reported falls at home HPI: Patient is confused and states he is uncertain as to why he is being admitted to rehab. In discussing briefly with his daughter and granddaughter before they left, he was noted to be more acutely confused over the past 5 days or so. His home health nurse obtained a urine culture today and that is when they found him to have a urinary tract infection. At baseline, he is usually less confused per the family, although he does have dementia. The patient denies any pain or discomfort currently. He denies any burning sensation or difficulty urinating. He denies any other issues currently as well. When asked why he had home health, he was unable to tell me. ROS: No headache, dizziness, lightheadedness, nausea, vomiting, difficulty swallowing, chest pain, shortness of breath at rest, abdominal pain, difficulty urinating, difficulty with bowel movements, blood in his stool, melena, joint pains, or any other concerns. He noted he can occasionally feel short of breath with exertion. He states he has bowel movements a couple times per week. PMH: dementia, CAD s/p CABG, Mitral valve replacement, hx of L ureteral stone, AFib on Coumadin, ESBL, TIA, HTN, HLD, and BPH. FHx: unable to be obtained Past surgical history: CABG, mitral valve replacement, lithotripsy Social history: retired and lives at home with his daughter and granddaughter. He is . Denies smoking, denies alcohol use, and denies any other recreational drug use Meds: see home meds under "reconcile meds". Allergies: Sulfa drugs Objectively: Vitals: T 36.2 HR: 54 BP: 128/62 RR 20 SpO2: 94% Physical exam: General: no apparent distress, AO x 2 (knows name and place, not oriented to time or situation), cooperative Cardio: RRR, normal S1, S2, no murmur, rub, or gallops Pulm: CTAB Abd: soft, non-tender, normal bowel sounds. No masses on palpation. Extremities: 1+ pitting edema bilaterally Skin: some ecchymosis on his right arm Neuro: no apparent focal deficits, CN II-XII grossly intact Psych: appropriate Labs: CBC: unremarkable (Hgb 13.3, WBC 9.1, Plt 246). CMP: Cr 1.27 (baseline ~1.0), otherwise unremarkable. LFTs: AST 58, ALT 74, Alk Phos 89, Total bili 0.7 Assessment and Plan: Mr. Craig Hopkins is a 87 year old male with past medical history of dementia, CAD s/p CABG, mitral valve replacement, Afib on coumadin, hx of L ureteral stone s/p lithotripsy, ESBL, TIA, HTN, HLD, and BPH who presents to the acute rehab facility for UTI and debility with multiple reported falls at home. 1. Urinary Tract infection: History of ESBL, and positive UA per home nurse (uncertain if cultured). - Start Meropenem 500mg IV q6 hours 2. Acute encephalopathy on top of dementia Patient more acute confused per patient's family. AO x2 on admission (person and place) - Cont treatment of UTI 3. Debility - PT/OT/WINDOWS CONSULTANT ordered and following 4. Hx of Atrial fibrillation - Cont Coumadin 5mg daily and then 10mg qFriday. - Cont Amiodarone 200 mg BID 5. Hx of CAD s/p CABG - Cont Atorvastatin 100mg daily - Cont Metoprolol succinate 25mg daily - Cont Lasix 20mg PO daily 6. BPH - Cont Finasteride 5mg daily - Cont Tamsulosin 0.4mg daily Dispo: Cont admission to inpatient rehab CODE: Full Code Fanta David MS4 WHITNEY ORELLANA DO 03/18/22 0535: Supervisory-Addendum Brief Verification & Attestation Participated in pt care: history, MDM, physical Personally performed: exam, history, MDM, supervision of care Care discussed with: Medical Student Procedures: n/a Results interpretation: Verified all documentation Verification and Attestation of Medical Student E/M Service A medical student performed and documented this service in my presence. I rev iewed and verified all information documented by the medical student and made modifications to such information, when appropriate. I personally performed the physical exam and medical decision making. Whitney Orellana, Mar 18, 2022,05:35 FANTA DAVID Mar 17, 2022 16:19 WHITNEY ORELLANA DO Mar 18, 2022 05:35
[2022-03-17 20:07] VITALS: BP 123/64
--- NOTE | 2022-03-17 20:27 | PM&R Post Admission Assessment ---
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 Dr Burnette is his Pre Sales Architect. Home meds were restarted and will check labs now and monitor INR closely. Patient denies any pain and he ate supper. CC: UTI and debility with multiple reported falls at home HPI: Patient is confused and states he is uncertain as to why he is being admitted to rehab. In discussing briefly with his daughter and granddaughter before they left, he was noted to be more acutely confused over the past 5 days or so. His home health nurse obtained a urine culture today and that is when they found him to have a urinary tract infection. At baseline, he is usually less confused per the family, although he does have dementia. The patient denies any pain or discomfort currently. He denies any burning sensation or difficulty urinating. He denies any other issues currently as well. When asked why he had home health, he was unable to tell me. ROS: No headache, dizziness, lightheadedness, nausea, vomiting, difficulty swallowing, chest pain, shortness of breath at rest, abdominal pain, difficulty urinating, difficulty with bowel movements, blood in his stool, melena, joint pains, or any other concerns. He noted he can occasionally feel short of breath with exertion. He states he has bowel movements a couple times per week. PMH: dementia, CAD s/p CABG, Mitral valve replacement, hx of L ureteral stone, AFib on Coumadin, ESBL, TIA, HTN, HLD, and BPH. FHx: unable to be obtained Past surgical history: CABG, mitral valve replacement, lithotripsy Social history: retired and lives at home with his daughter and granddaughter. He is . Denies smoking, denies alcohol use, and denies any other recreational drug use Meds: see home meds under "reconcile meds". Allergies: Sulfa drugs Objectively: Vitals: T 36.2 HR: 54 BP: 128/62 RR 20 SpO2: 94% Physical exam: General: no apparent distress, AO x 2 (knows name and place, not oriented to time or situation), cooperative Cardio: RRR, normal S1, S2, no murmur, rub, or gallops Pulm: CTAB Abd: soft, non-tender, normal bowel sounds. No masses on palpation. Extremities: 1+ pitting edema bilaterally Skin: some ecchymosis on his right arm Neuro: no apparent focal deficits, CN II-XII grossly intact Psych: appropriate Labs: CBC: unremarkable (Hgb 13.3, WBC 9.1, Plt 246). CMP: Cr 1.27 (baseline ~1.0), otherwise unremarkable. LFTs: AST 58, ALT 74, Alk Phos 89, Total bili 0.7 Assessment and Plan: Mr. Craig Hopkins is a 87 year old male with past medical history of dementia, CAD s/p CABG, mitral valve replacement, Afib on coumadin, hx of L ureteral stone s/p lithotripsy, ESBL, TIA, HTN, HLD, and BPH who presents to the acute rehab facility for UTI and debility with multiple reported falls at home. 1. Urinary Tract infection: History of ESBL, and positive UA per home nurse (uncertain if cultured). - Start Meropenem 500mg IV q6 hours 2. Acute encephalopathy on top of dementia Patient more acute confused per patient's family. AO x2 on admission (person and place) - Cont treatment of UTI 3. Debility - PT/OT/CALL CENTER PROFESSIONAL ordered and following 4. Hx of Atrial fibrillation - Cont Coumadin 5mg daily and then 10mg qFriday. - Cont Amiodarone 200 mg BID 5. Hx of CAD s/p CABG - Cont Atorvastatin 100mg daily - Cont Metoprolol succinate 25mg daily - Cont Lasix 20mg PO daily 6. BPH - Cont Finasteride 5mg daily - Cont Tamsulosin 0.4mg daily Dispo: Cont admission to inpatient rehab CODE: Full Code Luiz Minaya MS4 Past Vqtpebi-Kylhph-Rxhaka Hx Past Med/Social Hx: Reviewed Nursing Past Med/Soc Hx, Reviewed and Corrections made Patient Social History Marrital Status: Employed/Student: retired Smoking Status: Former Smoker Former Smoker, Quit: May 14, 1971 2nd Hand Smoke Exposure: Yes Recent Hopitalizations: No Immunizations Up To Date Tetanus Booster (TDap): Less than 5yrs Pediatric: No Date of Pneumonia Vaccine: Mar 18, 2020 Date of Influenza Vaccine: Jun 20, 2021 Seasonal Allergies Seasonal Allergies: No Past Medical History Surgeries: CABG, Tonsillectomy Currently Using CPAP: No Currently Using BIPAP: No Cardiac: Atrial Fibrillation, Coronary Artery Disease, Deep Vein Thrombosis, High Cholesterol, Hypertension, Valvular Heart Disease Neurological: Dementia, TIA Sexually Transmitted Disease: No HIV/AIDS: No Genitourinary: Prostate Problems, Kidney Stones Gastrointestinal: Gastroesophageal Reflux, Chronic Constipation Psychosocial: Depression History of Blood Disorders: No Adverse Reaction to Blood Lopez: No (N/A) Family History No Pertinent Family Hx Prior Level of Function Bed Mobility: 6 Transfers: 6 Gait: 4 Stairs: 4 Wheelchair Mobility: 4 Indoor Mobility (Ambulation): Needed Some Help Stairs: Needed Some Help Prior Devices Use: Manual wheelchair, Walker Self Care: Needed Some Help Functional Cognition: Needed Some Help Current Level of Fuctioning Roll Left to Right: 6 Sit to Lyin Lying to Sitting/Side of Bed: 6 Sit to Stand: 4 Chair/Rcp-vy-Ahxjj Xfer: 4 Car Transfer: 4 Does the Patient Walk: Yes Mode of Locomotion: Both Anticipated Mode of Locomotion: Both Walk 10 feet: 4 Walk 50 ft with 2 Turns: 4 Walk 150 ft: 3 Walking 10ft on uneven surface: 3 Gait Assistive Device: FWW Does the Pt Use a Wheelchair: Yes Wheel 50 ft with 2 turns: 88 Wheel 150 ft: 88 Type of Wheelchair: Manual #of Steps: 8 1 Step (curb): 3 4 Steps: 3 12 Steps: 88 (not safe to perform due to weakness) Picking up an Object: 88 Eatin (set up with containers and cutting food. ) Oral Hygiene: 4 (CGA standing at sink, min verbal cues for sequencing) Shower/Bathe Self: 4 (CGA in stand, min verbal cues for seuqencing and safety.) Upper Body Dressin (Pt doffed with SBA, min A for orientation with donning.) Lower Body Dressin (Pt doffed with CGA. Pt able to thread BLEs into pants but required min A with pulling pants on, pt able to complete panthike. ) On/Off Footwear: 4 (SBA with doffing/donning for safety. No cues required.) Toileting Hygiene: 4 (CGA. Pt able to urinate standing at toilet) PM&R Allergy/Meds/Data Review Allergies Coded Allergies: Sulfa (Sulfonamide Antibiotics) (Verified Allergy, Unknown, UNSURE OF REACTION, 07/06/21) Home Medications Scheduled Allopurinol (Allopurinol), 100 MG PO HS, (Reported) Amiodarone HCl (Amiodarone HCl), 200 MG PO BID Atorvastatin Calcium (Atorvastatin Calcium), 10 MG PO DAILY Bupropion HCl (Bupropion Xl), 150 MG PO DAILY, (Reported) Finasteride (Finasteride), 5 MG PO DAILY Furosemide (Furosemide), 20 MG PO DAILY Metoprolol Succinate (Metoprolol Succinate), 25 MG PO DAILY, (Reported) Omeprazole (Omeprazole), 40 MG PO DAILY, (Reported) Paroxetine HCl (Paroxetine HCl), 20 MG PO DAILY Potassium Chloride (Potassium Chloride), 10 MEQ PO DAILY Quetiapine Fumarate (Seroquel), 50 MG PO HS, (Reported) Tamsulosin HCl (Flomax), 0.4 MG PO 1800 Warfarin Sodium (Warfarin Sodium), 5 MG PO DAILY @1800, (Reported) Warfarin Sodium (Warfarin Sodium), 10 MG PO 1800 ON WEDNESDAY, (Reported) Discontinued Medications Hydroxyzine Pamoate (Hydroxyzine Pamoate), 25 MG PO TID PRN for ANXIETY Discontinued Reason: No Longer Taking Metoprolol Tartrate (Metoprolol Tartrate), 25 MG PO BID Discontinued Reason: No Longer Taking Trazodone HCl (Trazodone HCl), 50 MG PO HS Discontinued Reason: No Longer Taking Warfarin Sodium (Warfarin Sodium), 5 MG PO WED,WED Discontinued Reason: No Longer Taking Warfarin Sodium (Warfarin Sodium), 10 MG PO WED,,,, Discontinued Reason: No Longer Taking Current Medications Current Medications Reviewed Laboratory Data Laboratory Tests 03/17/22 15:44: White Blood Count 9.1, Red Blood Count 4.58, Hemoglobin 13.3, Hematocrit 42, Mean Corpuscular Volume 92, Mean Corpuscular Hemoglobin 29, Mean Corpuscular Hemoglobin Concent 32, Red Cell Distribution Width 16.7H, Platelet Count 246, Mean Platelet Volume 11.5, Immature Granulocyte % (Auto) 1, Neutrophils (%) (Auto) 68, Lymphocytes (%) (Auto) 16, Monocytes (%) (Auto) 11, Eosinophils (%) ( Auto) 3, Basophils (%) (Auto) 1, Neutrophils # (Auto) 6.2, Lymphocytes # (Auto) 1.5, Monocytes # (Auto) 1.0, Eosinophils # (Auto) 0.3, Basophils # (Auto) 0.1, Immature Granulocyte # (Auto) 0.1, Sodium Level 139, Potassium Level 4.2, Chloride Level 104, Carbon Dioxide Level 23, Anion Gap 12, Blood Urea Nitrogen 22H, Creatinine 1.27, Estimat Glomerular Filtration Rate 55, BUN/Creatinine Ratio 17, Glucose Level 102, Calcium Level 9.4, Corrected Calcium 9.5, Total Bilirubin 0.7, Aspartate Amino Transf (AST/SGOT) 58H, Alanine Aminotransferase (ALT/SGPT) 74H, Alkaline Phosphatase 89, Total Protein 7.5, Albumin 3.9 Review of Systems Constitutional: dizziness, malaise, weakness EENTM: no symptoms reported Respiratory: no symptoms reported Cardiovascular: no symptoms reported Gastrointestinal: no symptoms reported Genitourinary: decreased output Musculoskeletal: no symptoms reported Skin: no symptoms reported Psychiatric/Neurological: Depressed All Other Systems Reviewed Negative Unless Noted: Yes Physical Exam Physical Exam Vital Signs Vital Signs - First Documented 03/17/22 14:00 Temp 36.2 Pulse 54 Resp 20 B/P (MAP) 128/62 (84) Pulse Ox 94 O2 Delivery Room Air Capillary Refill : Height, Weight, BMI Height: '" Weight: lbs. oz. kg; 32.31 BMI Method: General Appearance: No Apparent Distress, WD/WN, Chronically ill Eyes: Bilateral Eye Normal Inspection, Bilateral Eye PERRL HEENT: PERRL/EOMI, Normal ENT Inspection, Pharynx Normal Neck: Full Range of Motion, Normal Inspection, Non Tender, Supple, Carotid Bruit Respiratory: Chest Non Tender, Lungs Clear, Normal Breath Sounds, No Accessory Muscle Use, No Respiratory Distress Cardiovascular: Regular Rate, Rhythm, No Edema, No Gallop, No JVD, No Murmur, Normal Peripheral Pulses Gastrointestinal: Normal Bowel Sounds, No Organomegaly, No Pulsatile Mass, Non Tender, Soft Back: Normal Inspection, No CVA Tenderness, No Vertebral Tenderness Extremity: Normal Capillary Refill, Normal Inspection, Normal Range of Motion, Non Tender, No Calf Tenderness, No Pedal Edema Neurologic/Psychiatric: Alert, Oriented x3, library acquisitions technician II-XII Norm as Tested, Abnormal Gait, Depressed Affect, Motor Weakness, Other (poor recall) Skin: Normal Color, Warm/Dry Lymphatic: No Adenopathy PM&R Medical Assessment & Plan REHAB/MEDICAL ASSESSMENT AND PLAN: REHAB IMPAIRMENT GROUP: Debility with resistant UTI ETIOLOGIC DIAGNOSIS: Debility with resistant UTI The comorbidities that impact the patients function and/or functional outcome by: advanced age, Coumadin management, Fall risk, confusion, dementia, depression, resistant UTI, BPH REHAB PLAN: The patient is being admitted to our comprehensive inpatient rehabilitation facility and can tolerate the intensity of service consisting of at least: 180 minutes of therapy a day, 5 out of 7 days a week Rehab treatment will consist of PT OT will focus on regaining strength with the use of AD in order to build stamina and decrease fall risk in order to safely DC to independent living The patient/family has a good understanding of our discharge process and will benefit from an interdisciplinary inpatient rehabilitation program. The patient has potential to make improvement and is in need of at least two of the followin g multidisciplinary therapies including but not limited to physical, occupational, speech, and prosthetics and orthotics. Additionally the patient will need services from respiratory, nutritional services, wound care, psychology, etc. (Customize this to each patient). Given the patients complex condition and risk of further medical complications, rehabilitation services cannot be safely or effectively provided at a lower level of care such as a assisted facility. BARRIERS TO DISCHARGE: Advanced age ESTIMATED LOS: 7 days DISPOSITION: Home RELEVANT CHANGES SINCE PREADMISSION SCREENING: I have compared the patients medical and functional status at the time of the preadmission screening and there are: no changes PROGNOSIS: Fair REHABILITATION GOALS: 1. PT OT will focus on regaining strength with the use of AD in order to build stamina and decrease fall risk in order to safely DC to independent living All the above goals were reviewed with the patient and he/she is in agreement. By signing this document, I acknowledge that I have personally performed a full physical examination on this patient within 24 hours of admission to this inpatient rehabilitation facility and have determined the patient to be able to tolerate the above course of treatment at an intensive level for a reasonable period of time. I will be completing a detailed individualized Plan of Care for this patient by day #4 of the patients stay based upon the Preadmission Screen, the Post-Admission Evaluation, and the therapy evaluations. Admission Dx/Comorbidities: (1) Debility ICD Codes: R53.81 - Other malaise (2) Anticoagulated on warfarin ICD Codes: Z79.01 - detention (current) use of anticoagulants (3) Atrial flutter Status: Acute ICD Codes: I48.92 - Unspecified atrial flutter (4) BPH (benign prostatic hyperplasia) Status: Acute ICD Codes: N40.0 - Benign prostatic hyperplasia without lower urinary tract symptoms (5) HLD (hyperlipidemia) Status: Chronic ICD Codes: E78.5 - Hyperlipidemia, unspecified (6) HTN (hypertension) Status: Chronic ICD Codes: I10 - Essential (primary) hypertension (7) Dementia Status: Chronic ICD Codes: F03.90 - Unspecified dementia without behavioral disturbance (8) Urinary tract infection Status: Acute ICD Codes: N39.0 - Urinary tract infection, site not specified Assessment/Plan Assessment and Plan Assess & Plan/Chief Complaint 1. Urinary Tract infection: History of ESBL, and positive UA per home nurse of Josie stanton - Start Meropenem 500mg IV q6 hours 2. Acute encephalopathy on top of dementia Patient more acute confused per patient's family. AO x2 on admission (person and place) - Cont treatment of UTI 3. Debility - PT/OT/CALL CENTER PROFESSIONAL ordered and following 4. Hx of Atrial fibrillation - Cont Coumadin 5mg daily and then 10mg qFriday. - Cont Amiodarone 200 mg BID 5. Hx of CAD s/p CABG - Cont Atorvastatin 100mg daily - Cont Metoprolol succinate 25mg daily - Cont Lasix 20mg PO daily 6. BPH - Cont Finasteride 5mg daily - Cont Tamsulosin 0.4mg daily Dispo: Cont admission to inpatient rehab CODE: Full Code ORELLANAJENIFER PATELHarmeet SHIN Mar 17, 2022 20:27
[2022-03-17] MEDS ORDERED: NON-FORMULARY MEDICATION 1 EA EA (Quetiapine Fumarate (Seroquel) 50 MG) PO SCH (21:00)
[2022-03-17] MEDS ORDERED: MEROPENEM 1,000 MG in NS (IVPB) 100 ML IV SCH (21:00)
[2022-03-17] MEDS: AMIODARONE 200 MG (CORDARONE) TAB PO SCH (21:12)
[2022-03-17] MEDS: ALLOPURINOL 100 MG (ZYLOPRIM) TAB PO SCH (21:12)
[2022-03-17] MEDS: DOCUSATE SODIUM 100 MG (COLACE) CAP PO SCH (21:12)
[2022-03-17] MEDS: QUEtiapine 25 MG (SEROquel) TAB IMMEDIATE RELEASE PO SCH (21:12)
[2022-03-17] MEDS: polyethylene glycoL POWDER 17 GM (MIRALAX) PACK PO SCH (21:28)
[2022-03-17] MEDS: SENNA W/DOCUSATE (SENOKOT S) TABLET PO SCH (21:28)
[2022-03-17] MEDS: MELATONIN 3 MG TABLET PO PRN (22:49)
[2022-03-18] MEDS: MEROPENEM 500 MG/NS 100 ML IVPB IV SCH ×8 (02:57→20:28)
[2022-03-18 05:55] LABS: BASOPHILS % (AUTO) 1 % (0-10); EOSINOPHILS # (AUTO) 0.3 10^3/uL (0.0-0.3); EOSINOPHILS % (AUTO) 4 % (0-10); HEMATOCRIT 38 % (40-54); HEMOGLOBIN 11.9 g/dL (13.3-17.7); LYMPHOCYTES # (AUTO) 1.6 10^3/uL (1.0-4.0); LYMPHOCYTES % (AUTO) 21 % (12-44); MEAN CORPUSCULAR HEMOGLOBIN 29 pg (25-34); MEAN CORPUSCULAR HGB CONC 32 g/dL (32-36); MEAN CORPUSCULAR VOLUME 92 fL (80-99); MEAN PLATELET VOLUME 11.6 fL (9.0-12.2); MONOCYTES # (AUTO) 0.8 10^3/uL (0.0-1.0); MONOCYTES % (AUTO) 11 % (0-12); NEUTROPHILS # (AUTO) 4.7 10^3/uL (1.8-7.8); NEUTROPHILS % (AUTO) 62 % (42-75); PLATELET COUNT 184 10^3/uL (130-400); WHITE BLOOD COUNT 7.5 10^3/uL (4.3-11.0)
[2022-03-18 06:11] LABS: INR 3.1 (0.8-1.4); PROTHROMBIN TIME PATIENT 32.8 SEC (12.2-14.7)
[2022-03-18 06:13] LABS: ALBUMIN 3.3 GM/DL (3.2-4.5); POTASSIUM 3.7 MMOL/L (3.6-5.0)
[2022-03-18 06:14] LABS: CALCIUM 8.8 MG/DL (8.5-10.1)
[2022-03-18 06:16] LABS: TOTAL PROTEIN 6.2 GM/DL (6.4-8.2)
[2022-03-18 06:18] LABS: BILIRUBIN,TOTAL 0.8 MG/DL (0.1-1.0)
[2022-03-18 06:19] LABS: CREATININE SERUM 0.96 MG/DL (0.60-1.30)
--- NOTE | 2022-03-18 06:28 | Individualized Plan of Care ---
Individualized Plan of Care Rehab Nursing IPOC Order Admission Date Mar 17, 2022 at 14:17 Current Orders Orders Admission Order(Inpt,Obs,Sdc) (03/17/22 13:36) Vital Signs: Per Unit Policy ( 08,16,00 (03/17/22 13:36) Bruno Grubbs (03/17/22 13:36) Sequential Compression Device (03/17/22 13:36) Switch Maker-Inpt Rehab Con (03/17/22 13:36) Rehab Nursing Orders-Ipoc (03/17/22 13:36) Physical Therapy Rehab Orders (03/17/22 13:36) Occupational Therapy Rehab Ord (03/17/22 13:36) Speech Therapy Rehab Orders (03/17/22 13:36) Cbc With Automated Diff (03/18/22 06:00) Comprehensive Metabolic Panel (03/18/22 06:00) Precautions (Aru) (03/17/22 13:36) Weekly Weight WEEK (03/17/22 13:36) Rehab-Intensity Of Therapy (03/17/22 13:36) Initiate Admission Nursing Pro .admission (03/17/22 13:36) Alprazolam Tablet (Xanax Tablet) (03/17/22 13:45) Calcium Carbonate Chew Tablet (Antacid C (03/17/22 13:45) Diphenhydramine Tablet (Benadryl Tablet) (03/17/22 13:45) Docusate Sodium Capsule (Colace Capsule) (03/17/22 21:00) Docusate Sodium Capsule (Colace Capsule) (03/17/22 13:45) Bisacodyl Suppository (Dulcolax Supposit (03/17/22 13:45) Lactulose Oral Solution (Enulose Oral So (03/17/22 13:45) Na Phos/Na Biphos Enema (Fleet Enema Meek (03/17/22 13:45) Guaifenesin/Codeine Syrup (Robitussin Ac (03/17/22 13:45) Loperamide Tablet (Imodium Tablet) (03/17/22 13:45) Melatonin Tablet (Melatonin Tablet) (03/17/22 13:45) Polyethylene Glycol Powder Pkt (Miralax (03/17/22 21:00) Ondansetron Oral Dissolve Tab (Zofran (03/17/22 13:45) Senna S Tablet (Senokot S Tablet) (03/17/22 21:00) Acetaminophen Tablet/Caplet (Tylenol T (03/17/22 13:45) Code/Resuscitation (03/17/22 13:36) Initiate Admission Nursing Pro .admission (03/17/22 13:36) Cbc With Automated Diff (03/17/22 13:36) Comprehensive Metabolic Panel (03/17/22 13:36) Meropenem (Merrem 1000 Mg) (03/17/22 21:00) Admission Arrival Bed Request (03/17/22 14:17) Meropenem (Merrem 500 Mg) (03/17/22 15:00) General/Regular (03/17/22 Lunch) Ensure Plus Vanilla (03/17/22 15:23) Patient Visit (03/17/22 ) Pt Eval Moderate Complexity (03/17/22 ) Functional Activities, Ea 15 (03/17/22 ) Flu High Dose Quad [id number] (Fluzone Hi (03/17/22 16:00) Allopurinol Tablet (Zyloprim Tablet) (03/17/22 21:00) Amiodarone Tablet (Cordarone Tablet) (03/17/22 21:00) Atorvastatin Tablet (Lipitor Tablet) (03/18/22 09:00) Finasteride Tablet (Proscar Tablet) (03/18/22 09:00) Furosemide Tablet (Lasix Tablet) (03/18/22 09:00) Metoprolol Succinate (Xl) Tab (Toprol Xl (03/18/22 09:00) Paroxetine Tablet (Paxil Tablet) (03/18/22 09:00) Tamsulosin Capsule (Flomax Capsule) (03/18/22 18:00) (Nf) Bupropion Hcl (Bupropion Xl) (03/18/22 09:00) (Nf) Omeprazole (03/18/22 09:00) (Nf) Potassium Chloride (03/18/22 09:00) (Nf) Quetiapine Fumarate (Seroquel) (03/17/22 21:00) Quetiapine Immediate Release (Seroquel I (10/4/22 21:00) Potassium Chloride (Tablet) (Klor Con Ta (03/18/22 07:00) Pantoprazole Tablet (Protonix Tablet) (03/18/22 09:00) Bupropion Sr 12 Hr Tablet (Wellbutrin Sr (03/18/22 09:00) Protime With Inr (03/18/22 06:00) Consult Cardiology (03/18/22 05:44) Patient Visit (03/18/22 ) Speech Sound Lang Comp (03/18/22 ) Treat. Speech/Lang/Voice (03/18/22 ) Patient Visit (03/18/22 ) Functional Activities, Ea 15 (03/18/22 ) Amiodarone Tablet (Cordarone Tablet) (03/19/22 09:00) Warfarin Tablet (Coumadin Tablet) (03/18/22 18:00) Warfarin Tablet (Coumadin Tablet) (03/20/22 18:00) Patient Visit (03/18/22 ) Gait Training, Ea 15 Min (03/18/22 ) Exercise Therap, Ea 15 Min (03/18/22 ) Wheelchair Mgmt/Propulsn 15min (03/18/22 ) Rehab Nursing Orders: Ongoing Assess. of Cognitive Status, Ongoing Assess. of Function Status, Bladder Management, Bladder Scan, Bladder Training, Bowel Management, Bowel Training, Disease Management & Educaiton, DVT Prophylaxis, Fall Prevention, Fluid/Electrolyte/Nutrition Mgmt, Infection Prevention, Medication Management & Education, Management of Risks & Complications, Management of Skin Intergrity, Nutrition Management, Pain Management, Patient/Family Support Intensity of Therapy to be met Patient to be seen: Min.3h per day/5 of 7d PT IPOC Problem List: Activity Tolerance, Functional Strength, Safety, Balance, Gait, Transfer, Bed Mobility, ROM Treatment Plan: Continue Plan of Care Bed Mobility, Concurrent Therapy, Education, Functional Activity Inocencio, Functional Strength, Group Therapy, Gait, Safety, Therapeutic Exercise, Transfers Treatment Duration: Apr 18, 2022 Frequency: At least 5 of 7 days/Wk (IRF) Estimated Hrs Per Day: 1.5 hours per day OT IPOC Problems: Decreased Activ Tolerance, Decreased Safety Aware, Decreased UE Strength, Impaired Funct Balance, Impaired I ADL's, Impaired Self-Care Skills OT Treatment, Training and Edu: Yes Plan of Care: ADL Retraining, Functional Mobility, Group Exercise/Act as Ind, UE Funct Exercise/Act Treatment Duration: Apr 10, 2022 Frequency: At least 5 of 7 days/Wk (IRF) Estimated Hrs Per Day: 1.5 hours per day [facility] Speech Therapy Treatment Plan: Continue Plan of Care Treatment Duration: Mar 18, 2022 Frequency: Modified Program (IRF) Estimated Hrs Per Day: Other Switch Maker/Case Mgmt Switch Maker/Case Managemen: Discharge Planning Dietitian/[employer] Sergeant Dietitian/[place] Sergeant to monitor nutritional status and make changes and/or recommendations as needed and work with speech pathology on dietary upgrades as the occur. Physician [facility] [place] Medical Issues being managed closely and that require the 24 hour availability of a physician: Recurrent and resistant UTI requiring meropenem in addition causing encephalopathy will require close monitoring with cardiology of INR and monitoring for any decompensation Medical Issues: Bowel/Bladder Function, DVT Prophylaxis, Falls Precautions, Fluid/Electrolyte/Nutrition Balance, Infection Protection, Pain Management Brief Synthesis of Preadmission Screen, Post-Admission Evaluation, and Therapy Evaluations: PT and OT will focus on regaining function and stamina with the use of assistive devices in order to return back to independent living Medical Prognosis: Fair Anticipated Length of Stay: 7 days SANDAR ORELLANA DO Mar 18, 2022 06:28
--- NOTE | 2022-03-18 06:28 | PM&R Progress Note ---
Subjective HPI/CC On Admission Date Seen by Provider: Mar 18, 2022 Time Seen by Provider: 08:30 Subjective/Events-last exam 03/18/2022: Patient doing pretty well Sleeps a lot Moves around pretty slowly Reviewed meds and labs Appreciate Dr. Burnette INR will be managed by Dr. Burnette and pharmacy Tolerating meropenem Review of Systems General: Fatigue, Malaise Neurological: Confusion Objective Exam Vital Signs Vital Signs Date Time Temp Pulse Resp B/P (MAP) Pulse Ox O2 Delivery O2 Flow Rate FiO2 03/18/22 20:40 Room Air 03/18/22 20:37 36.8 50 22 145/67 (93) 94 Capillary Refill : General Appearance: No Apparent Distress, WD/WN, Chronically ill HEENT: PERRL/EOMI, Normal ENT Inspection, Pharynx Normal Neck: Full Range of Motion, Normal Inspection, Non Tender, Supple, Carotid Bruit Respiratory: Chest Non Tender, Lungs Clear, Normal Breath Sounds, No Accessory Muscle Use, No Respiratory Distress Cardiovascular: Regular Rate, Rhythm, No Edema, No Gallop, No JVD, No Murmur, Normal Peripheral Pulses Gastrointestinal: Normal Bowel Sounds, No Organomegaly, No Pulsatile Mass, Non Tender, Soft Back: Normal Inspection, No CVA Tenderness, No Vertebral Tenderness Extremity: Normal Capillary Refill, Normal Inspection, Normal Range of Motion, Non Tender, No Calf Tenderness, No Pedal Edema Neurologic/Psychiatric: Alert, Oriented x3, scheduling representative II-XII Norm as Tested, Abnormal Gait, Depressed Affect, Motor Weakness, Other (poor recall) Skin: Normal Color, Warm/Dry Lymphatic: No Adenopathy Results/Procedures Lab Laboratory Tests 03/18/22 05:35 03/18/22 05:40 Patient resulted labs reviewed. FIM Transfers Therapy Code Descriptions/Definitions Functional [place] Measure: 0=Not Assessed/NA 4=Minimal Assistance 1=Total Assistance 5=Supervision or Setup 2=Maximal Assistance 6=Modified [place] 3=Moderate Assistance 7=Complete IndependenceSCALE: Activities may be completed with or without assistive devices. 4-Lrgxjexuse-dxnumxe completes the activity by him/herself with no assistance from a helper. 5-Set-up or Clean-up Assistance-helper sets up or cleans up; patient completes activity. [place] assists only prior to or following the activity. 4-Supervision or Touching Assistance-helper provides verbal cues and/or touching/steadying and/or contact guard assistance as patient completes activity. Assistance may be provided throughout the activity or intermittently. 3-Partial/Moderate Assistance-helper does LESS THAN HALF the effort. [place] lifts, holds or supports trunk or limbs, but provides less than half the effort. 2-Substantial/Maximal Assistance-helper does MORE THAN HALF the effort. [place] lifts or holds trunk or limbs and provides more than half the effort. 3-Ggkkasgwg-oudhcz does ALL the effort. Patient does none of the effort to complete the activity. Or, the assistance of 2 or more helpers is required for the patient to complete the activity. If activity was not attempted, code reason: 7-Patient Refused. 9-Not Applicable-not attempted and the patient did not perform the activity before the current illness, exacerbation or injury. 10-Not Attempted due to Environmental Limitations-(lack of equipment, weather restraints, etc.). 88-Not Attempted due to Medical Conditions or Safety Concerns. Roll Left to Right (QC): 6 Sit to Lying (QC): 6 Sit to Stand (QC): 4 Chair/Opc-il-Pdalq Xfer(QC): 4 Car Transfer (QC): 4 Gait Training Does the Patient Walk?: Yes Distance: 75 feet Walk 10 feet (QC): 4 Walk 50 ft with 2 Turns(QC): 4 Walk 150 ft (QC): 3 Walking 10ft/uneven surface-QC: 3 Gait Persons Needed: 1 Gait Assistive Device: FWW Wheelchair Training Does the Pt Use a Wheelchair?: Yes Wheel 50 ft with 2 turns (QC): 88 Wheel 150 ft (QC): 88 Type of Wheelchair: Manual Stair Training #of Steps: 8 1 Step (curb) (QC): 3 4 Steps (QC): 3 12 Steps (QC): 88 (not safe to perform due to weakness) Balance Picking up an Object (QC): 88 ADL-Treatment Eating (QC): 5 (set up with containers and cutting food. ) Oral Hygiene (QC): 4 (CGA standing at sink, min verbal cues for sequencing) Shower/Bathe Self (QC): 4 (CGA in stand, min verbal cues for seuqencing and safety.) Upper Body Dressing (QC): 3 (Pt doffed with SBA, min A for orientation with donning.) Lower Body Dressing (QC): 3 (Pt doffed with CGA. Pt able to thread BLEs into pants but required min A with pulling pants on, pt able to complete panthike. ) On/Off Footwear (QC): 4 (SBA with doffing/donning for safety. No cues required.) Toileting Hygiene (QC): 4 (CGA. Pt able to urinate standing at toilet) Assessment/Plan Assessment and Plan Assess & Plan/Chief Complaint Assessment: 1. Urinary Tract infection: History of ESBL, and positive UA per home nurse of Josie stanton - Start Meropenem 500mg IV q6 hours 2. Acute encephalopathy on top of dementia Patient more acute confused per patient's family. AO x2 on admission (person and place) - Cont treatment of UTI 3. Debility - PT/OT/HEATING AND VENTILATING WORKER ordered and following 4. Hx of Atrial fibrillation - Cont Coumadin 5mg daily and then 10mg qFriday. - Cont Amiodarone 200 mg BID 5. Hx of CAD s/p CABG - Cont Atorvastatin 100mg daily - Cont Metoprolol succinate 25mg daily - Cont Lasix 20mg PO daily 6. BPH - Cont Finasteride 5mg daily - Cont Tamsulosin 0.4mg daily Dispo: Cont admission to inpatient rehab CODE: Full Code 03/18/2022: Supportive care Meropenem (1) Debility (2) Anticoagulated on warfarin (3) Atrial flutter Status: Acute (4) BPH (benign prostatic hyperplasia) Status: Acute (5) HLD (hyperlipidemia) Status: Chronic (6) HTN (hypertension) Status: Chronic (7) Dementia Status: Chronic (8) Urinary tract infection Status: Acute SANDRA ORELLANA DO Mar 18, 2022 06:28
[2022-03-18] MEDS: KCL 10 MEQ TAB (MICRO K) PO SCH (06:35)
[2022-03-18 07:23] VITALS: BP 153/66
[2022-03-18] MEDS: PANTOPRAZOLE 40 MG (PROTONIX) TAB PO SCH (08:30)
[2022-03-18] MEDS: AMIODARONE 200 MG (CORDARONE) TAB PO SCH (08:30)
[2022-03-18] MEDS: AtorvaSTATin TABLET 10 MG TABLET PO SCH (08:30)
[2022-03-18] MEDS: PARoxetine 20 MG (PAXIL) TAB PO SCH (08:30)
[2022-03-18] MEDS: FUROSEMIDE 20 MG (LASIX) TAB PO SCH (08:30)
[2022-03-18] MEDS: DOCUSATE SODIUM 100 MG (COLACE) CAP PO SCH ×2 (08:30→20:28)
[2022-03-18] MEDS: buPROPion SR 150 MG (WELLBUTRIN SR) TAB PO SCH (08:30)
[2022-03-18] MEDS: SENNA W/DOCUSATE (SENOKOT S) TABLET PO SCH ×2 (08:30→20:34)
[2022-03-18] MEDS: FINASTERIDE (PROSCAR) 5 MG TAB PO SCH (08:30)
[2022-03-18] MEDS: polyethylene glycoL POWDER 17 GM (MIRALAX) PACK PO SCH ×2 (08:32→20:34)
--- NOTE | 2022-03-18 08:58 | Physical Therapy Daily Note ---
PT Daily Note-Current Subjective Pt. up in recliner, agrees to Rx, does not know the name of this building or the city. Denies any pain or discomfort Pain Location: No Pain Reported Section J - Health Conditions 1. Rarely or not at all 2. Occasionally 3. Frequently 4. Almost constantly 8. Unable to answer Pain Effect on Sleep: 8 Pain Interference with Therapy: 1 Pain Interference w/Day-to-Day: 8 Mental Status Patient Orientation: Confused Transfers SCALE: Activities may be completed with or without assistive devices. 8-Enqkjcixyw-szznnng completes the activity by him/herself with no assistance from a helper. 5-Set-up or Clean-up Assistance-helper sets up or cleans up; patient completes activity. [place] assists only prior to or following the activity. 4-Supervision or Touching Assistance-helper provides verbal cues and/or touching/steadying and/or contact guard assistance as patient completes activity. Assistance may be provided throughout the activity or intermittently. 3-Partial/Moderate Assistance-helper does LESS THAN HALF the effort. [place] lifts, holds or supports trunk or limbs, but provides less than half the effort. 2-Substantial/Maximal Assistance-helper does MORE THAN HALF the effort. [place] lifts or holds trunk or limbs and provides more than half the effort. 0-Pwuebgbyg-ypthsk does ALL the effort. Patient does none of the effort to complete the activity. Or, the assistance of 2 or more helpers is required for the patient to complete the activity. If activity was not attempted, code reason: 7-Patient Refused. 9-Not Applicable-not attempted and the patient did not perform the activity before the current illness, exacerbation or injury. 10-Not Attempted due to Environmental Limitations-(lack of equipment, weather restraints, etc.). 88-Not Attempted due to Medical Conditions or Safety Concerns. Roll Left & Right (QC): 6 Sit to Lying (QC): 6 Lying to Sitting/Side of Bed(Q: 6 Sit to Stand (QC): 3 Chair/Dlr-uo-Uxxrr Xfer(QC): 3 pt. has movement planning issues, needs repeated instruction as well as tactile cues to turn, handle FWW safely and approach for turns , needs much instruction for sit to stand gloria for st shift forward as pt. is initially retro pulsive without instruction Weight Bearing Right Lower Extremity: Right Full Weight Bearing Left Lower Extremity: Left Full Weight Bearing Gait Training Does the Patient Walk?: Yes Walk 10 feet (QC): 4 Walk 50 ft with 2 Turns(QC): 3 Gait Persons Needed: 1 Gait Assistive Device: FWW needs f/u w/c, needs min to mod assist for cuing both verbal and tactile for wt shift, step length , steering of device, balance , pt at times seems to be abandoning FWW and forgets what the task is Wheelchair Training Does the Pt Use a Wheelchair?: Yes Wheel 50 ft with 2 turns (QC): 4 Type of Wheelchair: Manual educated in braking, turning and propelling w/c Exercises Supine Ex: Bridging, Ankle pumps, Quad Set, Rolling, Heel Slides, Short Arc Quads, Scooting, Straight leg raise, Hip abd/add (sidelying and supine) Supine Reps: 15 Seated Therapy Exercises: Ankle pumps, Sit to stand, Long arc quads Seated Reps: 15 Treatments TRFs, gait, therex, wc mob Assessment Current Status: Fair Progress balance and coordination limits safe mob, needs verbal and tactile cues for all PT Skilled Nursing Goals Skilled Nursing Goals PT Skilled Nursing Goals Time Frame: Apr 18, 2022 Roll Left & Right (QC): 6 Sit to Lying (QC): 6 Lying-Sitting on Side/Bed(QC): 6 Sit to Stand (QC): 4 Chair/Ber-wg-Zjnpe Xfer(QC): 4 Toilet Transfer (QC): 4 Car Transfer (QC): 6 Does the Patient Walk: Yes Walk 10 feet (QC): 5 Walk 50ft with 2 Turns (QC): 5 Walk 150 ft (QC): 5 Walking 10ft on Uneven Surface: 5 1 Step (curb) (QC): 4 4 Steps (QC): 4 12 Steps (QC): 4 Picking up an Object (QC): 4 Does the Pt use WC or Scooter?: Yes Wheel 50 feet with 2 turns (QC: 4 Type: Manual Wheel 150 feet: 4 Type: Manual PT Plan Treatment/Plan Treatment Plan: Continue Plan of Care Treatment Plan: Bed Mobility, Concurrent Therapy, Education, Functional Activity Inocencio, Functional Strength, Group Therapy, Gait, Safety, Therapeutic Exercise, Transfers Treatment Duration: Apr 18, 2022 Frequency: At least 5 of 7 days/Wk (IRF) Estimated Hrs Per Day: 1.5 hours per day Patient and/or Family Agrees t: Yes Safety Risks/Education Patient Education: Gait Training, Transfer Techniques, Correct Positioning, W/C Management, Safety Issues Teaching Recipient: Patient Teaching Methods: Demonstration, Discussion Response to Teaching: Reinforcement Needed Time/GCodes Time In: 800 Time Out: 900 Total Billed Treatment Time: 60 Total Billed Treatment 1,WC15m,GT25m,EX20m ROBIN GRAHAM PTA Mar 18, 2022 08:58
[2022-03-18] MEDS ORDERED: NON-FORMULARY MEDICATION 1 EA EA (Bupropion HCl (Bupropion Xl) 150 MG) PO SCH (09:00)
[2022-03-18] MEDS ORDERED: NON-FORMULARY MEDICATION 1 EA EA (Omeprazole 40 MG) PO SCH (09:00)
[2022-03-18] MEDS ORDERED: NON-FORMULARY MEDICATION 1 EA EA (Potassium Chloride 10 MEQ) PO SCH (09:00)
--- NOTE | 2022-03-18 09:10 | Consultation-Cardiology ---
HPI-Cardiology Cardiology Consultation Date of Consultation 03/18/22 Date of Admission Time Seen by Provider: 08:30 Indication: PAF HPI Patient is an 87 y/o male with history of PAF, CAD s/p CABG, hx of TAVR. Admitted from home to IRF d/t increased debility/weakness. Home health nurse and family members reports decline in physical and mental status over the past week. Found to have UTI and started on Meropenum. Denies any chest pain, dyspnea, dizziness or lightheadedness. Home Medications & Allergies Allergies: Coded Allergies: Sulfa (Sulfonamide Antibiotics) (Verified Allergy, Unknown, UNSURE OF REACTION, 07/06/21) Home Medication List Reviewed: Yes VJL-Leaxwv-Cnjsuo Hx Patient Social History Marital Status: , Employed/Student: retired Smoking Status: Former Smoker 2nd Hand Smoke Exposure: Yes Recent Hopitalizations: No Alcohol Use?: No Immunizations Up To Date Tetanus Booster (TDap): Less than 5yrs Date of Pneumonia Vaccine: Mar 18, 2020 Date of Influenza Vaccine: Jun 20, 2021 Past Medical History PAF, CAD, TAVR, HTN Family Medical History Significant Family History: No Pertinent Family Hx Review of Systems-General Review of Systems Constitutional: dizziness, malaise, weakness EENTM: see HPI, no symptoms reported Respiratory: no symptoms reported, see HPI Cardiovascular: no symptoms reported, see HPI Gastrointestinal: no symptoms reported, see HPI Genitourinary: see HPI, decreased output Musculoskeletal: no symptoms reported, see HPI Skin: no symptoms reported, see HPI Psychiatric/Neurological: Depressed All Other Systems Reviewed Negative Unless Noted: Yes Reviewed Test Results Reviewed Test Results Lab Laboratory Tests 03/17/22 15:44: White Blood Count 9.1, Red Blood Count 4.58, Hemoglobin 13.3, Hematocrit 42, Mean Corpuscular Volume 92, Mean Corpuscular Hemoglobin 29, Mean Corpuscular Hemoglobin Concent 32, Red Cell Distribution Width 16.7H, Platelet Count 246, Mean Platelet Volume 11.5, Immature Granulocyte % (Auto) 1, Neutrophils (%) (Auto) 68, Lymphocytes (%) (Auto) 16, Monocytes (%) (Auto) 11, Eosinophils (%) (Auto) 3, Basophils (%) (Auto) 1, Neutrophils # (Auto) 6.2, Lymphocytes # (Auto) 1.5, Monocytes # (Auto) 1.0, Eosinophils # (Auto) 0.3, Basophils # (Auto) 0.1, Immature Granulocyte # (Auto) 0.1, Sodium Level 139, Potassium Level 4.2, Chloride Level 104, Carbon Dioxide Level 23, Anion Gap 12, Blood Urea Nitrogen 2 2H, Creatinine 1.27, Estimat Glomerular Filtration Rate 55, BUN/Creatinine Ratio 17, Glucose Level 102, Calcium Level 9.4, Corrected Calcium 9.5, Total Bilirubin 0.7, Aspartate Amino Transf (AST/SGOT) 58H, Alanine Aminotransferase (ALT/SGPT) 74H, Alkaline Phosphatase 89, Total Protein 7.5, Albumin 3.9 03/18/22 05:35: White Blood Count 7.5, Red Blood Count 4.09L, Hemoglobin 11.9L, Hematocrit 38L, Mean Corpuscular Volume 92, Mean Corpuscular Hemoglobin 29, Mean Corpuscular Hemoglobin Concent 32, Red Cell Distribution Width 16.9H, Platelet Count 184, Mean Platelet Volume 11.6, Immature Granulocyte % (Auto) 1, Neutrophils (%) (Auto) 62, Lymphocytes (%) (Auto) 21, Monocytes (%) (Auto) 11, Eosinophils (%) (Auto) 4, Basophils (%) (Auto) 1, Neutrophils # (Auto) 4.7, Lymphocytes # (Auto) 1.6, Monocytes # (Auto) 0.8, Eosinophils # (Auto) 0.3, Basophils # (Auto) 0.0, Immature Granulocyte # (Auto) 0.1 03/18/22 05:40: Sodium Level 140, Potassium Level 3.7, Chloride Level 107, Carbon Dioxide Level 24, Anion Gap 9, Blood Urea Nitrogen 23H, Creatinine 0.96, Estimat Glomerular Filtration Rate 77, BUN/Creatinine Ratio 24, Glucose Level 82, Calcium Level 8.8, Corrected Calcium 9.4, Total Bilirubin 0.8, Aspartate Amino Transf (AST/SGOT) 41H, Alanine Aminotransferase (ALT/SGPT) 56H, Alkaline Phosphatase 77, Total Protein 6.2L, Albumin 3.3, Prothrombin Time 32.8H, INR Comment 3.1H Physical Exam Physical Exam Vital Signs Vital Signs - First Documented 03/17/22 14:00 Temp 36.2 Pulse 54 Resp 20 B/P (MAP) 128/62 (84) Pulse Ox 94 O2 Delivery Room Air Capillary Refill : Height, Weight, BMI Height: '" Weight: lbs. oz. kg; 32.31 BMI Method: General Appearance: No Apparent Distress, WD/WN, Chronically ill Eyes: Bilateral Eye Normal Inspection, Bilateral Eye PERRL HEENT: PERRL/EOMI, Normal ENT Inspection, Pharynx Normal Neck: Full Range of Motion, Normal Inspection, Non Tender, Supple, Carotid Bruit Respiratory: Chest Non Tender, Lungs Clear, Normal Breath Sounds, No Accessory Muscle Use, No Respiratory Distress Cardiovascular: Regular Rate, Rhythm, No Edema, No Gallop, No JVD, No Murmur, Normal Peripheral Pulses Gastrointestinal: Normal Bowel Sounds, No Organomegaly, No Pulsatile Mass, Non Tender, Soft Back: Normal Inspection, No CVA Tenderness, No Vertebral Tenderness Extremity: Normal Capillary Refill, Normal Inspection, Normal Range of Motion, Non Tender, No Calf Tenderness, No Pedal Edema Neurologic/Psychiatric: Alert, Oriented x3, sas developer analyst II-XII Norm as Tested, Abnormal Gait, Depressed Affect, Motor Weakness, Other (poor recall) Skin: Normal Color, Warm/Dry Lymphatic: No Adenopathy A/P-Cardiology Admission Diagnosis UTI CAD PAF hx TAVR Assessment/Plan UTI, started on antibiotic, management per PCP Generalized debility/weakness, continue PT/OT Paroxysmal atrial fib/flutter, history of cardioversion September 08, 2021. Unable to tolerate diltiazem due to hypotension and bradycardia Currently on beta reuben, Amiodarone 200mg BID, started in September 2021. Noted to be bradycardic. I will d/c beta reuben, decrease Amiodarone to daily. Continue to monitor. 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 [id number] score of 6, yearly risk of stroke without oral anticoagulation is 9.8%. Maintained on Coumadin. Coronary artery disease History of CABG [place] [address] Bradshaw, has been followed by Dr. White and Dr. Samuels after that Cardiac catheterization done July [address] Samuels revealing severe multivessel [place] coronary artery disease. 3 out of 4 patent bypass grafts with the RATLIFF being atretic. 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 Andrew, had complex and prolonged recovery in [facility] secondary to UTI, sepsis, questionable anoxic brain injury Most recent 2D Echo done September 2019 showed LV cavity size is increased and wall thickness is mildly to moderatley increased LV systolic function is mildy decreased with EF 40-45%, diastolic dysfunction. RV systolic function is reduce, LA is mildly dilated measuring 4.8 cm, MV has moderately calcified annulus-sclerosis with mild stenosis. mod TR, PA 35-40 mmHg Hypertension, controlled, continue to monitor. 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 Hopkins. This is Jerrica Burgos PA-C, as a scribe for Dr. Burnette. Patient was seen and evaluated with Jerrica, I interviewed and examined the patient, discussed the management plan and agree with the scribe note In summary patient is well-known to my practice he is a 87 years old gentleman with coronary artery disease and paroxysmal atrial fibrillation/flutter. Admitted for generalized weakness and debility, has been having significant weakness. Noted to have urinary tract infection, restarting home medication, continue to monitor INR closely. No other changes to his medications are recommended Continue to monitor blood pressure. JERRICA SOLER Mar 18, 2022 09:10 DANITZA BURNETTE MD Mar 18, 2022 12:54
--- NOTE | 2022-03-18 10:02 | ST Cognitive Linguistic Eval ---
Speech Evaluation-General Medical Diagnosis Debility/UTI Onset Date: Mar 17, 2022 Therapy Diagnosis Therapy Diagnosis: Impaired Cognition Precautions Precautions: Fall, Pressure Ulcer Precautions/Isolations: Fall Prevention, Standard Precautions, Pressure Ulcer Referral Referring Physician: Dr. Bailey Reason for Referral: Evaluation/Treatment Medical History Pertinent Medical History: Atrial Fib, CABG, CAD, Dementia, HTN Current History The patient is an 87 year-old male with a past medical history of atrial fibrillation, CABG, CAD, dementia, and HTN, who was admitted to ARU from home with debility and UTI. Reviewed History: Yes Social History Current Living Status: Children (daughter) Speech PLF-Current Status Prior Level of Function The patient was unable to provide the clinician with prior level cognitive status or current cognitive concerns. Subjective The patient was sleeping upright in his recliner upon entrance to his room by the clinician. The patient woke easily with a verbal greeting from the clinician and was agreeable to participation in the cognitive linguistic assessment. Language Eval: Auditory Comprehends Simple Yes/No Ques: Functional Indent/Objects Multiple Main: Functional Follows 1-Step Commands: Functional Follows General Conversations: Moderate Language Eval: Verbal Language Completes Spontaneous Greeting: Functional Produces Auto, Serial Info: Functional Imitates Simple Words/Phrases: Functional Word Finding: Moderate Requests Basic Needs: Functional States Basic Personal Info: Functional Cognitive Patient Orientation The patient was not oriented to month, day of the week, or year. Objective Cognitive Domain Attention: Moderate Memory: Moderate Problem Solving: Moderate Executive Functions: Moderate Composite Severity Rating: Moderate Objective Formal/Standardized Tests [facility] Mental Status Exam (UMS) Results The patient demonstrated a result of +11/30 on the SLUMS correlating to a score of "dementia." Oral Motor/Speech Production The patient does not display dysarthria or apraxia of speech. The patient is 100% intelligible in known and unknown contexts. Impression The patient displays a moderate cognitive impairment at this time, most notably in the areas of memory, orientation, and problem solving. The patient has baseline confusion, however, the patient's family members report the patient's confusion is higher with his current UTI. Due to this report, the clinician will provide cognitive therapy and monitor progression. If no progression is displayed, the patient will be discharged from skilled speech pathology services. Speech Patient Assess Expression of Ideas/Wants: Frequently (2) Understanding Verbal Content: Sometimes Understands(2) Brief Interview-Mental Status: Yes Repetition of Three Words: None (0) Temporal Orientation: Year: Missed by 1 year (2) Temporal Orientation: Month: Accurate within 5 days(2) Temporal Orientation: Day: Incorrect or No Answer(0) Recall : Wear to say "Sock": No, could not recall (0) Recall : Color: No, could not recall (0) Recall : Bed: No, could not recall (0) Memory/Recall Ability: That he or she is in a hsp/hsp unit Speech Short Term Goals Short Term Goals Short Term Goals 1. The patient will demonstrate improved safety awareness with mild clinician verbal prompting and visual cues. Time Frame-STG: One Week. Speech Mcfp Goals Earth Moving Technician Goals 1. The patient will demonstrate improved cognitive linguistic skills for safe discharge to the least restrictive environment. Time Frame: Two Weeks. Speech-Plan Treatment Plan Speech Therapy Treatment Plan: Continue Plan of Care Treatment Duration: Apr 01, 2022 Frequency: Modified Program (IRF) (Four to five times per week.) Estimated Hrs Per Day: .5 hour per day Rehab Potential: Fair Safety Risks/Education Teaching Recipient: Patient Teaching Methods: Discussion Response to Teaching: Reinforcement Needed Education Topics Provided: Results, Recommendations, Plan of Care Time Speech Therapy Time In: 09:30 Speech Therapy Time Out: 10:00 Total Billed Time: 30 Billed Treatment Time 1, IESHA MANUEL ELIZABETH ST Mar 18, 2022 10:02
--- NOTE | 2022-03-18 10:14 | Occupational Ther Daily Note ---
OT Current Status-Daily Note Subjective Pt agreeable to OT Tx. States he is tired, and falls asleep in recliner after 5 mins. Mental Status/Objective Patient Orientation: Person, Confused, Place Acute change in mental status: 1 Inattention: 1 Disorganized thinkin Altered level of consciousness: 0 ADL-Treatment Therapy Code Descriptions/Definitions Functional [place] Measure: 0=Not Assessed/NA 4=Minimal Assistance 1=Total Assistance 5=Supervision or Setup 2=Maximal Assistance 6=Modified [place] 3=Moderate Assistance 7=Complete IndependenceSCALE: Activities may be completed with or without assistive devices. 5-Meggnzydyo-cbtxkcc completes the activity by him/herself with no assistance from a helper. 5-Set-up or Clean-up Assistance-helper sets up or cleans up; patient completes activity. [place] assists only prior to or following the activity. 4-Supervision or Touching Assistance-helper provides verbal cues and/or touching/steadying and/or contact guard assistance as patient completes activity. Assistance may be provided throughout the activity or intermittently. 3-Partial/Moderate Assistance-helper does LESS THAN HALF the effort. [place] lifts, holds or supports trunk or limbs, but provides less than half the effort. 2-Substantial/Maximal Assistance-helper does MORE THAN HALF the effort. [place] lifts or holds trunk or limbs and provides more than half the effort. 5-Qcnwxiqvs-lbuycy does ALL the effort. Patient does none of the effort to complete the activity. Or, the assistance of 2 or more helpers is required for the patient to complete the activity. If activity was not attempted, code reason: 7-Patient Refused. 9-Not Applicable-not attempted and the patient did not perform the activity before the current illness, exacerbation or injury. 10-Not Attempted due to Environmental Limitations-(lack of equipment, weather restraints, etc.). 88-Not Attempted due to Medical Conditions or Safety Concerns. Other Treatment Pt up in recliner, declined ADLs on this date. Pt stood from recliner, min A due to retropulsion. Pt used FWW to perform functional mobility to therapy gym, min A with balance, especially during turns, and VCs for direction towards gym. OT tx focused on increasing BUE Strength and activity tolerance. Pt completed x15 mins on arm bike, 20-25 Watt resistance, no rest break. Pt then completed "peg pascual" activity, matching colored clothespins. Pt often matched blue and purple together, and red and orange. Overall pt had 9 errors. Pt able to correctly identify 2 errors with max cues. On 2 correctly placed pieces, pt incorrectly identified them as being different colors when they matched. As pt continued with task, accuracy of responses decreased, so task terminated. Pt then placed pegs into foam pegboard, placing the same colors in each row. Pt accurately placed 16/20 pegs. 4 incorrect pegs were blue when they should have been purple. Pt able to correct with instruction. Pt completed another round of matching pegs (green and yellow only), this time correctly placing 15/16, able to locate error with cue and fix. Post tx, pt in chair in therapy gym, all needs met. PT present for continued tx. Education OT Patient Education: Correct positioning, Energy conservation, Modified ADL techniques, Progress toward Goal/Update tx plan, Purpose of tx/functional activities, Rehab process Teaching Recipient: Patient Teaching Methods: Discussion Response to Teaching: Verbalize Understanding OT Short Term Goals Short Term Goals Time Frame: Mar 27, 2022 Upper body dressin Lower body dressin Putting on/taking off footwear: 5 OT Partnership Marketing Manager Goals Usp Goals Time Frame: Apr 10, 2022 Acute change in mental status: 0 Inattention: 0 Disorganized thinkin Altered level of consciousness: 0 Eating (QC): 6 Oral Hygiene (QC): 6 Toileting Hygiene (QC): 6 Shower/Bathe Self (QC): 6 Upper Body Dressing (QC): 6 Lower Body Dressing (QC): 6 On/Off Footwear (QC): 6 Additional Goals: 1-Demonstrate ADL Tasks, 2-Verbalize Understanding, 3- ImproveStrength/Inocencio 1=Demonstrate adherence to instructed precautions during ADL tasks. 2=Patient will verbalize/demonstrate understanding of assistive devices /modifications for ADL. 3=Patient will improve strength/tolerance for activity to enable patient to perform ADL's. OT Education/Plan Problem List/Assessment Assessment: Decreased Activ Tolerance, Decreased Safety Aware, Decreased UE Strength, Impaired Funct Balance, Impaired I ADL's, Impaired Self-Care Skills Discharge Recommendations Plan/Recommendations: Continue POC Treatment Plan/Plan of Care Patient would benefit from OT for education, treatment and training to promote independence in ADL's, mobility, safety and/or upper extremity function for ADL's. Plan of Care: ADL Retraining, Functional Mobility, Group Exercise/Act as Ind, UE Funct Exercise/Act Treatment Duration: Apr 10, 2022 Frequency: At least 5 of 7 days/Wk (IRF) Estimated Hrs Per Day: 1.5 hours per day Agreement: Yes Rehab Potential: Fair Time/GCodes Start Time: 10:00 Stop Time: 11:15 Total Time Billed (hr/min): 75 Billed Treatment Time 1, EX (15'), FA 4 (60') HALLE FRAKN OT Mar 18, 2022 10:14
--- NOTE | 2022-03-18 11:35 | Physical Therapy Daily Note ---
PT Daily Note-Current Subjective Patient in therapy gym pre tx, agrees to PT, has no complaints of pain. Pain Section J - Health Conditions 1. Rarely or not at all 2. Occasionally 3. Frequently 4. Almost constantly 8. Unable to answer Pain Effect on Sleep: 8 Pain Interference with Therapy: 1 Pain Interference w/Day-to-Day: 8 Appearance Patient in recliner post tx with nurse call, phone, tray, chair alarm on. Mental Status Patient Orientation: Person, Confused Transfers SCALE: Activities may be completed with or without assistive devices. 8-Cqlxjzqkqp-kjcwcda completes the activity by him/herself with no assistance from a helper. 5-Set-up or Clean-up Assistance-helper sets up or cleans up; patient completes activity. [place] assists only prior to or following the activity. 4-Supervision or Touching Assistance-helper provides verbal cues and/or touching/steadying and/or contact guard assistance as patient completes activity. Assistance may be provided throughout the activity or intermittently. 3-Partial/Moderate Assistance-helper does LESS THAN HALF the effort. [place] lifts, holds or supports trunk or limbs, but provides less than half the effort. 2-Substantial/Maximal Assistance-helper does MORE THAN HALF the effort. [place] lifts or holds trunk or limbs and provides more than half the effort. 1-Hnsctqeoa-ewuzfi does ALL the effort. Patient does none of the effort to complete the activity. Or, the assistance of 2 or more helpers is required for the patient to complete the activity. If activity was not attempted, code reason: 7-Patient Refused. 9-Not Applicable-not attempted and the patient did not perform the activity before the current illness, exacerbation or injury. 10-Not Attempted due to Environmental Limitations-(lack of equipment, weather restraints, etc.). 88-Not Attempted due to Medical Conditions or Safety Concerns. Sit to Stand (QC): 4 Chair/Yvn-us-Agtzy Xfer(QC): 4 CGA, cues for safety and positioning Weight Bearing Right Lower Extremity: Right Full Weight Bearing Left Lower Extremity: Left Full Weight Bearing Gait Training Distance: 200' Walk 10 feet (QC): 4 Walk 50 ft with 2 Turns(QC): 4 Walk 150 ft (QC): 4 Gait Persons Needed: 1 Gait Assistive Device: FWW uncoordinated steps, unsteady but no LOB, needs cues for correct usage of walker, assist guiding walker when turning. Exercises sit to stand 3 sets of 10, working on shifting weight forward, patient tends to lean backward and lean on chair with knees. Treatments transfers, ambulation, functional strengthening and balance training Assessment Current Status: Fair Progress has unsafe usage of walker PT Retirement Goals Acid Conditioner Goals PT Retirement Goals Time Frame: Apr 18, 2022 Roll Left & Right (QC): 6 Sit to Lying (QC): 6 Lying-Sitting on Side/Bed(QC): 6 Sit to Stand (QC): 4 Chair/Yug-bb-Rpctc Xfer(QC): 4 Toilet Transfer (QC): 4 Car Transfer (QC): 6 Does the Patient Walk: Yes Walk 10 feet (QC): 5 Walk 50ft with 2 Turns (QC): 5 Walk 150 ft (QC): 5 Walking 10ft on Uneven Surface: 5 1 Step (curb) (QC): 4 4 Steps (QC): 4 12 Steps (QC): 4 Picking up an Object (QC): 4 Does the Pt use WC or Scooter?: Yes Wheel 50 feet with 2 turns (QC: 4 Type: Manual Wheel 150 feet: 4 Type: Manual PT Plan Problem List Problem List: Activity Tolerance, Functional Strength, Safety, Balance, Gait, Transfer, Bed Mobility, ROM Treatment/Plan Treatment Plan: Continue Plan of Care Treatment Plan: Bed Mobility, Concurrent Therapy, Education, Functional Ac tivity Inocencio, Functional Strength, Group Therapy, Gait, Safety, Therapeutic Exercise, Transfers Treatment Duration: Apr 18, 2022 Frequency: At least 5 of 7 days/Wk (IRF) Estimated Hrs Per Day: 1.5 hours per day Patient and/or Family Agrees t: Yes Safety Risks/Education Patient Education: Gait Training, Transfer Techniques, Correct Positioning, Safety Issues Teaching Recipient: Patient Teaching Methods: Demonstration, Discussion Response to Teaching: Reinforcement Needed Time/GCodes Time In: 1115 Time Out: 1130 Total Billed Treatment Time: 15 Total Billed Treatment 1 visit FA 15' MITESH OHARA PT Mar 18, 2022 11:35
[2022-03-18] MEDS: TAMSULOSIN 0.4 MG (FLOMAX) CAP PO SCH (17:33)
[2022-03-18] MEDS: warFARin 5 MG (COUMADIN) TAB PO SCH (17:33)
[2022-03-18] MEDS: QUEtiapine 25 MG (SEROquel) TAB IMMEDIATE RELEASE PO SCH (20:28)
[2022-03-18] MEDS: MELATONIN 3 MG TABLET PO PRN (20:28)
[2022-03-18] MEDS: ALLOPURINOL 100 MG (ZYLOPRIM) TAB PO SCH (20:28)
[2022-03-18 20:37] VITALS: BP 145/67
[2022-03-19] MEDS: MEROPENEM 500 MG/NS 100 ML IVPB IV SCH ×8 (02:44→21:27)
[2022-03-19] MEDS: KCL 10 MEQ TAB (MICRO K) PO SCH (06:03)
[2022-03-19 07:19] VITALS: BP 128/75
--- NOTE | 2022-03-19 08:15 | Cardiology Progress Note ---
Subjective Date Seen by Provider: Mar 19, 2022 Time Seen by Provider: 08:13 Subjective/Events-last exam Patient is sitting up in chair, no new complaints. Objective-Cardiology Exam Last Set of Vital Signs Vital Signs 03/19/22 07:19 Temp 36.3 Pulse 52 Resp 18 B/P (MAP) 128/75 (92) Pulse Ox 92 O2 Delivery Room Air I&O Intake and Output 03/19/22 00:00 Intake Total 200 ml Balance 200 ml Intake IV Total 200 ml General: Alert, Oriented X3 HEENT: Atraumatic Neck: Supple Lungs: Clear to Auscultation, Normal Air Movement Heart: Regular Rate Abdomen: Soft Extremities: No Edema Skin: No Rashes, No Significant Lesion Neuro: Normal Speech Psych/Mental Status: Mood NL A/P-Cardiology Admission Diagnosis UTI CAD PAF hx TAVR Assessment/Plan UTI, started on antibiotic, management per PCP Generalized debility/weakness, continue PT/OT Paroxysmal atrial fib/flutter, history of cardioversion September 08, 2021. Unable to tolerate diltiazem due to hypotension and bradycardia Beta-blockers were discontinued Amiodarone was decreased to 200 mg once daily Heart rate is slightly better, continue to monitor. 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 [id number] score of 6, yearly risk of stroke without oral anticoagulation is 9. 8%. Maintained on Coumadin. Coronary artery disease History of CABG [place] [address] Bradshaw, has been followed by Dr. White and Dr. Samuels after that Cardiac catheterization done July [address] Samuels revealing severe multivessel [place] coronary artery disease. 3 out of 4 patent bypass grafts with the RATLIFF being atretic. 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 Andrew, had complex and prolonged recovery in [facility] secondary to UTI, sepsis, questionable anoxic brain injury Most recent 2D Echo done September 2019 showed LV cavity size is increased and wall thickness is mildly to moderatley increased LV systolic function is mildy decreased with EF 40-45%, diastolic dysfunction. RV systolic function is reduce, LA is mildly dilated measuring 4.8 cm, MV has moderately calcified annulus-sclerosis with mild stenosis. mod TR, PA 35-40 mmHg Hypertension, controlled, continue to monitor. 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 No chest pain Heart rate is slightly better. Continue to monitor GENOVEVA SOLER Mar 19, 2022 08:15 DANITZA HALL MD Mar 19, 2022 08:47
[2022-03-19] MEDS: polyethylene glycoL POWDER 17 GM (MIRALAX) PACK PO SCH ×2 (09:00→21:26)
--- NOTE | 2022-03-19 09:17 | Physical Therapy Daily Note ---
PT Daily Note-Current Subjective Pt. agrees to Rx, Cannot accurately state name of facility, city or month, does accurately name [facility] as president . Pain Location: No Pain Reported Section J - Health Conditions 1. Rarely or not at all 2. Occasionally 3. Frequently 4. Almost constantly 8. Unable to answer Pain Effect on Sleep: 8 Pain Interference with Therapy: 1 Pain Interference w/Day-to-Day: 8 Mental Status Patient Orientation: Confused Transfers SCALE: Activities may be completed with or without assistive devices. 2-Dlowdgyshj-ljezkkl completes the activity by him/herself with no assistance from a helper. 5-Set-up or Clean-up Assistance-helper sets up or cleans up; patient completes activity. [place] assists only prior to or following the activity. 4-Supervision or Touching Assistance-helper provides verbal cues and/or touching/steadying and/or contact guard assistance as patient completes activity. Assistance may be provided throughout the activity or intermittently. 3-Partial/Moderate Assistance-helper does LESS THAN HALF the effort. [place] lifts, holds or supports trunk or limbs, but provides less than half the effort. 2-Substantial/Maximal Assistance-helper does MORE THAN HALF the effort. [place] lifts or holds trunk or limbs and provides more than half the effort. 4-Xbtvencol-rsixvu does ALL the effort. Patient does none of the effort to complete the activity. Or, the assistance of 2 or more helpers is required for the patient to complete the activity. If activity was not attempted, code reason: 7-Patient Refused. 9-Not Applicable-not attempted and the patient did not perform the activity before the current illness, exacerbation or injury. 10-Not Attempted due to Environmental Limitations-(lack of equipment, weather restraints, etc.). 88-Not Attempted due to Medical Conditions or Safety Concerns. Sit to Stand (QC): 3 Chair/Xzp-tu-Svwqa Xfer(QC): 3 with regard to sit to stand pt. needs repeated explanation for wt shift forward and hand placement and CGA to min asst. for chair approaches and stand to sit pt. requires mod assist and and repeated instruction for use of FWW, backing , turning, reaching back etc, this is very uncoordinated and unsafe , pt. plopping hard sometimes on arm of chair as he does not fully reach chair 1st etc Weight Bearing Right Lower Extremity: Right Full Weight Bearing Left Lower Extremity: Left Full Weight Bearing Gait Training Does the Patient Walk?: Yes Walk 10 feet (QC): 4 Walk 50 ft with 2 Turns(QC): 4 Walk 150 ft (QC): 4 Gait Persons Needed: 1 Gait Assistive Device: FWW uneven step length, needs repeated instruction and assist to manage turning of walker and to stay in safe position in FWW, uncoordinated, pt would abandon FWW if this ELECTRIC MOTOR REPAIR SUPERVISOR did not instruct Exercises Seated Therapy Exercises: Ankle pumps, Sit to stand, Long arc quads, Hip flexion, Hamstring Curls, Hip abd/add Seated Reps: 15 NuStep Minutes: 12 NuStep Workload: 1 Treatments leg presses on Nustep x12 Assessment Current Status: Fair Progress needs min assist and instruction for all gait and on feet mobility for safety, a t risk for falls, retropulsive PT Ocean Freight Forwarder Goals [facility] Goals PT Ocean Freight Forwarder Goals Time Frame: Apr 18, 2022 Roll Left & Right (QC): 6 Sit to Lying (QC): 6 Lying-Sitting on Side/Bed(QC): 6 Sit to Stand (QC): 4 Chair/Jil-yo-Fmzmy Xfer(QC): 4 Toilet Transfer (QC): 4 Car Transfer (QC): 6 Does the Patient Walk: Yes Walk 10 feet (QC): 5 Walk 50ft with 2 Turns (QC): 5 Walk 150 ft (QC): 5 Walking 10ft on Uneven Surface: 5 1 Step (curb) (QC): 4 4 Steps (QC): 4 12 Steps (QC): 4 Picking up an Object (QC): 4 Does the Pt use WC or Scooter?: Yes Wheel 50 feet with 2 turns (QC: 4 Type: Manual Wheel 150 feet: 4 Type: Manual PT Plan Treatment/Plan Treatment Plan: Continue Plan of Care Treatment Plan: Bed Mobility, Concurrent Therapy, Education, Functional Activity Inocencio, Functional Strength, Group Therapy, Gait, Safety, Therapeutic Exercise, Transfers Treatment Duration: Apr 18, 2022 Frequency: At least 5 of 7 days/Wk (IRF) Estimated Hrs Per Day: 1.5 hours per day Patient and/or Family Agrees t: Yes Safety Risks/Education Patient Education: Gait Training, Transfer Techniques, Correct Positioning, Disease Process, Safety Issues Teaching Recipient: Patient Teaching Methods: Demonstration, Discussion Response to Teaching: Verbalize Understanding, Return Demonstration, Reinforcement Needed Time/GCodes Time In: 800 Time Out: 915 Total Billed Treatment Time: 75 Total Billed Treatment 1,GT20m,EX30m,FA25m ROBIN GRAHAM ELECTRIC MOTOR REPAIR SUPERVISOR Mar 19, 2022 09:17
[2022-03-19] MEDS: SENNA W/DOCUSATE (SENOKOT S) TABLET PO SCH ×2 (09:45→21:27)
[2022-03-19] MEDS: AtorvaSTATin TABLET 10 MG TABLET PO SCH (09:45)
[2022-03-19] MEDS: PANTOPRAZOLE 40 MG (PROTONIX) TAB PO SCH (09:45)
[2022-03-19] MEDS: AMIODARONE 200 MG (CORDARONE) TAB PO SCH (09:45)
[2022-03-19] MEDS: DOCUSATE SODIUM 100 MG (COLACE) CAP PO SCH ×2 (09:45→21:27)
[2022-03-19] MEDS: buPROPion SR 150 MG (WELLBUTRIN SR) TAB PO SCH (09:45)
[2022-03-19] MEDS: PARoxetine 20 MG (PAXIL) TAB PO SCH (09:45)
--- NOTE | 2022-03-19 09:45 | Speech Therapy Daily Note ---
Speech Daily Progress Note Subjective Date Seen by Provider: Mar 19, 2022 Time Seen by Provider: 09:15 The patient was seated upright in his recliner, awake and alert upon entrance to his room by the clinician. The patient greeted the clinician and was agreeable to participation in the cognitive linguistic treatment session. Objective Informally, the patient does appear less confused throughout unstructured conversation on this date. The patient remains on-topic and initiates appropriate questions for the clinician. The patient is oriented to month, city, and year. The patient is not oriented to day of the week. The patient and clinician discussed the patient's home environment, possible safety concerns, and items to improve safety. The patient stated he has three stairs in front and in the back to enter the home, both with railings. The patient additionally stated his daughter is having a walk-in shower installed and grab bars. The patient is concerned the doorways are too narrow for his walker, however, does state the walker fits "but barely." The patient stated his daughter organizes his medication and is completing his financial obligations (utility bills) at this time. The patient was unable to recall safety precautions for mobility (walker, walker use, walker instructions) shared by occupational therapy and physical therapy, stating, "They didn't really give me any." The clinician provided simple safety precaution review, specifically the location of his call light and appropriate use. Assessment Assessment Current Status: Fair Progress Treatment Plan Continue Plan of Care Speech Short Term Goals Short Term Goals Short Term Goals 1. The patient will demonstrate improved safety awareness with mild clinician verbal prompting and visual cues. Time Frame-STG: One Week. Speech Consulting Marine Engineer Goals Consulting Marine Engineer Goals 1. The patient will demonstrate improved cognitive linguistic skills for safe discharge to the least restrictive environment. Time Frame: Two Weeks. Speech-Plan Treatment Plan Speech Therapy Treatment Plan: Continue Plan of Care Treatment Duration: Mar 18, 2022 Frequency: Modified Program (IRF) Estimated Hrs Per Day: Other Rehab Potential: Fair Safety Risks/Education Teaching Recipient: Patient Teaching Methods: Discussion Response to Teaching: Reinforcement Needed Education Topics Provided: Safety Precautions Time Speech Therapy Time In: 09:15 Speech Therapy Time Out: 09:45 Total Billed Time: 30 Billed Treatment Time 1IESHAAnaisYURY ST Mar 19, 2022 09:45
[2022-03-19] MEDS: FINASTERIDE (PROSCAR) 5 MG TAB PO SCH (09:46)
[2022-03-19] MEDS: FUROSEMIDE 20 MG (LASIX) TAB PO SCH (09:46)
--- NOTE | 2022-03-19 10:22 | Occupational Ther Daily Note ---
OT Current Status-Daily Note Subjective Pt in recliner, agreeable to OT Tx. Pt indicates he has already completed this today, OT informed pt about OT vs PT Mental Status/Objective Patient Orientation: Person, Confused Attachments: IV Acute change in mental status: 1 Inattention: 1 Disorganized thinkin Altered level of consciousness: 0 ADL-Treatment Therapy Code Descriptions/Definitions Functional [place] Measure: 0=Not Assessed/NA 4=Minimal Assistance 1=Total Assistance 5=Supervision or Setup 2=Maximal Assistance 6=Modified [place] 3=Moderate Assistance 7=Complete IndependenceSCALE: Activities may be completed with or without assistive devices. 7-Jyeikspxgh-hcjutui completes the activity by him/herself with no assistance from a helper. 5-Set-up or Clean-up Assistance-helper sets up or cleans up; patient completes activity. [place] assists only prior to or following the activity. 4-Supervision or Touching Assistance-helper provides verbal cues and/or touching /steadying and/or contact guard assistance as patient completes activity. Assistance may be provided throughout the activity or intermittently. 3-Partial/Moderate Assistance-helper does LESS THAN HALF the effort. [place] lifts, holds or supports trunk or limbs, but provides less than half the effort. 2-Substantial/Maximal Assistance-helper does MORE THAN HALF the effort. [place] lifts or holds trunk or limbs and provides more than half the effort. 7-Dahdqkctr-puxnjc does ALL the effort. Patient does none of the effort to complete the activity. Or, the assistance of 2 or more helpers is required for the patient to complete the activity. If activity was not attempted, code reason: 7-Patient Refused. 9-Not Applicable-not attempted and the patient did not perform the activity before the current illness, exacerbation or injury. 10-Not Attempted due to Environmental Limitations-(lack of equipment, weather restraints, etc.). 88-Not Attempted due to Medical Conditions or Safety Concerns. Other Treatment Sit to stand from recliner, mod A, pt retropulsive during transfer and upon standing. Pt used FWW to perform functional mobility to therapy gym, CGA during straight walking, but min A with turns. Pt required verbal cues to locate therap y gym and for safety with sit to stand transfers. OT tx focused on increasing BUE strength and activity tolerance, and increasing cognition/problem solving with functional tasks. Pt started on arm bike, only able to complete 1 min 30 seconds. Pt's IV became occluded with movement of bending his elbow during task, so arm bike terminated. Pt then completed "peg pascual" activity. Pt max VCs in order to match correct colors together. [place] through peg pascual activity, OT presented pt with only 2 options, instead of the remaining pieces. Pt able to place pegs into the correct location, max verbal cues still required, task ended. During activity, pt's IV finished, so nurse removed IV. Pt completed remaining time on arm bike, x18 mins total, 20-25 Watt resistance. Pt used FWW to return to his room, CGA-min A with cues for directions. Pt transferred to recliner, step by step VCs required for safety/sequencing and assistance maneuvering walker during turn. Post tx, pt in recliner, call light in reach and all needs met, chair alarm activated. Education OT Patient Education: Correct positioning, Energy conservation, Exercise program, Modified ADL techniques, Progress toward Goal/Update tx plan, Purpose of tx/functional activities, Rehab process Teaching Recipient: Patient Teaching Methods: Discussion Response to Teaching: Verbalize Understanding, Reinforcement Needed OT Short Term Goals Short Term Goals Time Frame: Mar 27, 2022 Upper body dressin Lower body dressin Putting on/taking off footwear: 5 OT Shelter Goals Greenskeeper Supervisor Goals Time Frame: Apr 10, 2022 Acute change in mental status: 1 Inattention: 1 Disorganized thinkin Altered level of consciousness: 0 Eating (QC): 6 Oral Hygiene (QC): 6 Toileting Hygiene (QC): 6 Shower/Bathe Self (QC): 6 Upper Body Dressing (QC): 6 Lower Body Dressing (QC): 6 On/Off Footwear (QC): 6 Additional Goals: 1-Demonstrate ADL Tasks, 2-Verbalize Understanding, 3- ImproveStrength/Inocencio 1=Demonstrate adherence to instructed precautions during ADL tasks. 2=Patient will verbalize/demonstrate understanding of assistive devices/modifications for ADL. 3=Patient will improve strength/tolerance for activity to enable patient to perform ADL's. OT Education/Plan Problem List/Assessment Assessment: Decreased Activ Tolerance, Decreased Safety Aware, Decreased UE Strength, Impaired Cognition, Impaired Funct Balance, Impaired I ADL's, Impaired Self-Care Skills Discharge Recommendations Plan/Recommendations: Continue POC Treatment Plan/Plan of Care Patient would benefit from OT for education, treatment and training to promote independence in ADL's, mobility, safety and/or upper extremity function for ADL's. Plan of Care: ADL Retraining, Functional Mobility, Group Exercise/Act as Ind, UE Funct Exercise/Act Treatment Duration: Apr 10, 2022 Frequency: At least 5 of 7 days/Wk (IRF) Estimated Hrs Per Day: 1.5 hours per day Agreement: Yes Rehab Potential: Fair Time/GCodes Start Time: 10:00 Stop Time: 11:15 Total Time Billed (hr/min): 75 Billed Treatment Time 1, EX (20'), FA 4 (55') HALLE FRANK OT Mar 19, 2022 10:22
--- NOTE | 2022-03-19 11:05 | PM&R Progress Note ---
Subjective HPI/CC On Admission Date Seen by Provider: Mar 19, 2022 Time Seen by Provider: 12:00 Subjective/Events-last exam 03/19/2022: Pt is doing better Needs to have a bowel movement so I added laxatives Otherwise he is doing really well Encephalopathy is clearing 03/18/2022: Patient doing pretty well Sleeps a lot Moves around pretty slowly Reviewed meds and labs Appreciate Dr. Burnette INR will be managed by Dr. Burnette and pharmacy Tolerating meropenem Review of Systems General: Fatigue, Malaise Objective Exam Vital Signs Vital Signs Date Time Temp Pulse Resp B/P (MAP) Pulse Ox O2 Delivery O2 Flow Rate FiO2 03/19/22 09:00 Room Air 03/19/22 07:19 36.3 52 18 128/75 (92) 92 Capillary Refill : General Appearance: No Apparent Distress, WD/WN, Chronically ill HEENT: PERRL/EOMI, Normal ENT Inspection, Pharynx Normal Neck: Full Range of Motion, Normal Inspection, Non Tender, Supple, Carotid Bruit Respiratory: Chest Non Tender, Lungs Clear, Normal Breath Sounds, No Accessory Muscle Use, No Respiratory Distress Cardiovascular: Regular Rate, Rhythm, No Edema, No Gallop, No JVD, No Murmur, Normal Peripheral Pulses Gastrointestinal: Normal Bowel Sounds, No Organomegaly, No Pulsatile Mass, Non Tender, Soft Back: Normal Inspection, No CVA Tenderness, No Vertebral Tenderness Extremity: Normal Capillary Refill, Normal Inspection, Normal Range of Motion, Non Tender, No Calf Tenderness, No Pedal Edema Neurologic/Psychiatric: Alert, Oriented x3, academic department chair II-XII Norm as Tested, Abnormal Gait, Depressed Affect, Motor Weakness, Other (poor recall) Skin: Normal Color, Warm/Dry Lymphatic: No Adenopathy Results/Procedures Lab Patient resulted labs reviewed. FIM Transfers Therapy Code Descriptions/Definitions Functional [place] Measure: 0=Not Assessed/NA 4=Minimal Assistance 1=Total Assistance 5=Supervision or Setup 2=Maximal Assistance 6=Modified [place] 3=Moderate Assistance 7=Complete IndependenceSCALE: Activities may be completed with or without assistive devices. 1-Uklwgdimkx-bwpenkm completes the activity by him/herself with no assistance from a helper. 5-Set-up or Clean-up Assistance-helper sets up or cleans up; patient completes activity. [place] assists only prior to or following the activity. 4-Supervision or Touching Assistance-helper provides verbal cues and/or touching/steadying and/or contact guard assistance as patient completes activity. Assistance may be provided throughout the activity or intermittently. 3-Partial/Moderate Assistance-helper does LESS THAN HALF the effort. [place] lifts, holds or supports trunk or limbs, but provides less than half the effort. 2-Substantial/Maximal Assistance-helper does MORE THAN HALF the effort. [place] lifts or holds trunk or limbs and provides more than half the effort. 2-Hdipttlnd-vmbybr does ALL the effort. Patient does none of the effort to complete the activity. Or, the assistance of 2 or more helpers is required for the patient to complete the activity. If activity was not attempted, code reason: 7-Patient Refused. 9-Not Applicable-not attempted and the patient did not perform the activity before the current illness, exacerbation or injury. 10-Not Attempted due to Environmental Limitations-(lack of equipment, weather restraints, etc.). 88-Not Attempted due to Medical Conditions or Safety Concerns. Roll Left to Right (QC): 6 Sit to Lying (QC): 6 Sit to Stand (QC): 3 Chair/Jko-ev-Isezc Xfer(QC): 3 Car Transfer (QC): 4 Gait Training Does the Patient Walk?: Yes Distance: 200' Walk 10 feet (QC): 4 Walk 50 ft with 2 Turns(QC): 4 Walk 150 ft (QC): 4 Walking 10ft/uneven surface-QC: 3 Gait Persons Needed: 1 Gait Assistive Device: FWW Wheelchair Training Does the Pt Use a Wheelchair?: Yes Wheel 50 ft with 2 turns (QC): 4 Wheel 150 ft (QC): 88 Type of Wheelchair: Manual Stair Training #of Steps: 8 1 Step (curb) (QC): 3 4 Steps (QC): 3 12 Steps (QC): 88 (not safe to perform due to weakness) Balance Picking up an Object (QC): 88 ADL-Treatment Eating (QC): 5 (set up with containers and cutting food. ) Oral Hygiene (QC): 4 (CGA standing at sink, min verbal cues for sequencing) Shower/Bathe Self (QC): 4 (CGA in stand, min verbal cues for seuqencing and s afety.) Upper Body Dressing (QC): 3 (Pt doffed with SBA, min A for orientation with donning.) Lower Body Dressing (QC): 3 (Pt doffed with CGA. Pt able to thread BLEs into pants but required min A with pulling pants on, pt able to complete panthike. ) On/Off Footwear (QC): 4 (SBA with doffing/donning for safety. No cues required.) Toileting Hygiene (QC): 4 (CGA. Pt able to urinate standing at toilet) Assessment/Plan Assessment and Plan Assess & Plan/Chief Complaint Assessment: 1. Urinary Tract infection: History of ESBL, and positive UA per home nurse of Josie stanton - Start Meropenem 500mg IV q6 hours 2. Acute encephalopathy on top of dementia Patient more acute confused per patient's family. AO x2 on admission (person and place) - Cont treatment of UTI 3. Debility - PT/OT/BIODIESEL PRODUCT MANAGER ordered and following 4. Hx of Atrial fibrillation - Cont Coumadin 5mg daily and then 10mg qFriday. - Cont Amiodarone 200 mg BID 5. Hx of CAD s/p CABG - Cont Atorvastatin 100mg daily - Cont Metoprolol succinate 25mg daily - Cont Lasix 20mg PO daily 6. BPH - Cont Finasteride 5mg daily - Cont Tamsulosin 0.4mg daily Dispo: Cont admission to inpatient rehab CODE: Full Code 03/18/2022: Supportive care Meropenem 03/19/2022: Monitor closely BM regimen (1) Debility (2) Anticoagulated on warfarin (3) Atrial flutter Status: Acute (4) BPH (benign prostatic hyperplasia) Status: Acute (5) HLD (hyperlipidemia) Status: Chronic (6) HTN (hypertension) Status: Chronic (7) Dementia Status: Chronic (8) Urinary tract infection Status: Acute SANDRA ORELLANA DO Mar 19, 2022 11:05
[2022-03-19] MEDS: TAMSULOSIN 0.4 MG (FLOMAX) CAP PO SCH (17:39)
[2022-03-19] MEDS: warFARin 5 MG (COUMADIN) TAB PO SCH (17:49)
[2022-03-19 20:30] VITALS: BP 127/57
[2022-03-19] MEDS: QUEtiapine 25 MG (SEROquel) TAB IMMEDIATE RELEASE PO SCH (21:27)
[2022-03-19] MEDS: ALLOPURINOL 100 MG (ZYLOPRIM) TAB PO SCH (21:27)
[2022-03-20] MEDS: MEROPENEM 500 MG/NS 100 ML IVPB IV SCH ×8 (03:00→22:00)
--- NOTE | 2022-03-20 05:41 | PM&R Progress Note ---
Subjective HPI/CC On Admission Date Seen by Provider: Mar 20, 2022 Time Seen by Provider: 17:30 Subjective/Events-last exam 03/20/2022: No major issues BM finally after multiple meds No falls Confusion is baseline now 03/19/2022: Pt is doing better Needs to have a bowel movement so I added laxatives Otherwise he is doing really well Encephalopathy is clearing 03/18/2022: Patient doing pretty well Sleeps a lot Moves around pretty slowly Reviewed meds and labs Appreciate Dr. Burnette INR will be managed by Dr. Burnette and pharmacy Tolerating meropenem Review of Systems General: Fatigue, Malaise Objective Exam Vital Signs Vital Signs Date Time Temp Pulse Resp B/P (MAP) Pulse Ox O2 Delivery O2 Flow Rate FiO2 03/20/22 19:31 36.0 55 12 132/70 (90) 92 Room Air Capillary Refill : General Appearance: No Apparent Distress, WD/WN, Chronically ill HEENT: PERRL/EOMI, Normal ENT Inspection, Pharynx Normal Neck: Full Range of Motion, Normal Inspection, Non Tender, Supple, Carotid Bruit Respiratory: Chest Non Tender, Lungs Clear, Normal Breath Sounds, No Accessory Muscle Use, No Respiratory Distress Cardiovascular: Regular Rate, Rhythm, No Edema, No Gallop, No JVD, No Murmur, Normal Peripheral Pulses Gastrointestinal: Normal Bowel Sounds, No Organomegaly, No Pulsatile Mass, Non Tender, Soft Back: Normal Inspection, No CVA Tenderness, No Vertebral Tenderness Extremity: Normal Capillary Refill, Normal Inspection, Normal Range of Motion, Non Tender, No Calf Tenderness, No Pedal Edema Neurologic/Psychiatric: Alert, Oriented x3, pocket builder II-XII Norm as Tested, Abnormal Gait, Depressed Affect, Motor Weakness, Other (poor recall) Skin: Normal Color, Warm/Dry Lymphatic: No Adenopathy Results/Procedures Lab Patient resulted labs reviewed. FIM Transfers Therapy Code Descriptions/Definitions Functional [place] Measure: 0=Not Assessed/NA 4=Minimal Assistance 1=Total Assistance 5=Supervision or Setup 2=Maximal Assistance 6=Modified [place] 3=Moderate Assistance 7=Complete IndependenceSCALE: Activities may be completed with or without assistive devices. 6-Ynszursxph-vtqyahc completes the activity by him/herself with no assistance from a helper. 5-Set-up or Clean-up Assistance-helper sets up or cleans up; patient completes activity. [place] assists only prior to or following the activity. 4-Supervision or Touching Assistance-helper provides verbal cues and/or touching/steadying and/or contact guard assistance as patient completes activity. Assistance may be provided throughout the activity or intermittently. 3-Partial/Moderate Assistance-helper does LESS THAN HALF the effort. [place] lifts, holds or supports trunk or limbs, but provides less than half the effort. 2-Substantial/Maximal Assistance-helper does MORE THAN HALF the effort. [place] lifts or holds trunk or limbs and provides more than half the effort. 1-Rrihuhika-buvynf does ALL the effort. Patient does none of the effort to complete the activity. Or, the assistance of 2 or more helpers is required for the patient to complete the activity. If activity was not attempted, code reason: 7-Patient Refused. 9-Not Applicable-not attempted and the patient did not perform the activity before the current illness, exacerbation or injury. 10-Not Attempted due to Environmental Limitations-(lack of equipment, weather restraints, etc.). 88-Not Attempted due to Medical Conditions or Safety Concerns. Roll Left to Right (QC): 6 Sit to Lying (QC): 6 Sit to Stand (QC): 3 Chair/Kfx-rt-Esmts Xfer(QC): 3 Car Transfer (QC): 4 Gait Training Does the Patient Walk?: Yes Distance: 200' Walk 10 feet (QC): 4 Walk 50 ft with 2 Turns(QC): 4 Walk 150 ft (QC): 4 Walking 10ft/uneven surface-QC: 3 Gait Persons Needed: 1 Gait Assistive Device: FWW Wheelchair Training Does the Pt Use a Wheelchair?: Yes Wheel 50 ft with 2 turns (QC): 4 Wheel 150 ft (QC): 88 Type of Wheelchair: Manual Stair Training #of Steps: 8 1 Step (curb) (QC): 3 4 Steps (QC): 3 12 Steps (QC): 88 (not safe to perform due to weakness) Balance Picking up an Object (QC): 88 ADL-Treatment Eating (QC): 5 (set up with containers and cutting food. ) Oral Hygiene (QC): 4 (CGA standing at sink, min verbal cues for sequencing) Shower/Bathe Self (QC): 4 (CGA in stand, min verbal cues for seuqencing and safety.) Upper Body Dressing (QC): 3 (Pt doffed with SBA, min A for orientation with donning.) Lower Body Dressing (QC): 3 (Pt doffed with CGA. Pt able to thread BLEs into pants but required min A with pulling pants on, pt able to complete panthike. ) On/Off Footwear (QC): 4 (SBA with doffing/donning for safety. No cues required.) Toileting Hygiene (QC): 4 (CGA. Pt able to urinate standing at toilet) Assessment/Plan Assessment and Plan Assess & Plan/Chief Complaint Assessment: 1. Urinary Tract infection: History of ESBL, and positive UA per home nurse of Josie [facility] - Start Meropenem 500mg IV q6 hours 2. Acute encephalopathy on top of dementia Patient more acute confused per patient's family. AO x2 on admission (person and place) - Cont treatment of UTI 3. Debility - PT/OT/NEUROPSYCHIATRIST ordered and following 4. Hx of Atrial fibrillation - Cont Coumadin 5mg daily and then 10mg qFriday. - Cont Amiodarone 200 mg BID 5. Hx of CAD s/p CABG - Cont Atorvastatin 100mg daily - Cont Metoprolol succinate 25mg daily - Cont Lasix 20mg PO daily 6. BPH - Cont Finasteride 5mg daily - Cont Tamsulosin 0.4mg daily Dispo: Cont admission to inpatient rehab CODE: Full Code 03/18/2022: Supportive care Meropenem 03/19/2022: Monitor closely BM regimen 03/20/2022: Monitor closely Fall risk (1) Debility (2) Anticoagulated on warfarin (3) Atrial flutter Status: Acute (4) BPH (benign prostatic hyperplasia) Status: Acute (5) HLD (hyperlipidemia) Status: Chronic (6) HTN (hypertension) Status: Chronic (7) Dementia Status: Chronic (8) Urinary tract infection Status: Acute SANDRA ORELLANA DO Mar 20, 2022 05:41
[2022-03-20 05:49] LABS: INR 2.1 (0.8-1.4); PROTHROMBIN TIME PATIENT 24.4 SEC (12.2-14.7)
[2022-03-20] MEDS: KCL 10 MEQ TAB (MICRO K) PO SCH (06:21)
[2022-03-20 07:48] VITALS: BP 136/62
[2022-03-20] MEDS: buPROPion SR 150 MG (WELLBUTRIN SR) TAB PO SCH (07:57)
[2022-03-20] MEDS: SENNA W/DOCUSATE (SENOKOT S) TABLET PO SCH ×2 (07:57→22:01)
[2022-03-20] MEDS: FINASTERIDE (PROSCAR) 5 MG TAB PO SCH (07:57)
[2022-03-20] MEDS: PARoxetine 20 MG (PAXIL) TAB PO SCH (07:57)
[2022-03-20] MEDS: AMIODARONE 200 MG (CORDARONE) TAB PO SCH (07:57)
[2022-03-20] MEDS: FUROSEMIDE 20 MG (LASIX) TAB PO SCH (07:57)
[2022-03-20] MEDS: PANTOPRAZOLE 40 MG (PROTONIX) TAB PO SCH (07:57)
[2022-03-20] MEDS: DOCUSATE SODIUM 100 MG (COLACE) CAP PO SCH ×2 (07:57→22:01)
[2022-03-20] MEDS: AtorvaSTATin TABLET 10 MG TABLET PO SCH (07:57)
[2022-03-20] MEDS: polyethylene glycoL POWDER 17 GM (MIRALAX) PACK PO SCH ×2 (08:54→22:02)
--- NOTE | 2022-03-20 08:56 | Physical Therapy Daily Note ---
PT Daily Note-Current Subjective Pt. states his legs are a little sore from working yesterday. Pt. agrees to rx., conts confused. having great difficulty following instruction for safe use of device and gloria safe chair approach, turns and stand to sit. Pain Location: No Pain Reported Section J - Health Conditions 1. Rarely or not at all 2. Occasionally 3. Frequently 4. Almost constantly 8. Unable to answer Pain Effect on Sleep: 8 Pain Interference with Therapy: 1 Pain Interference w/Day-to-Day: 8 Mental Status Patient Orientation: Confused Transfers SCALE: Activities may be completed with or without assistive devices. 5-Zyoivaziho-nztbeej completes the activity by him/herself with no assistance from a helper. 5-Set-up or Clean-up Assistance-helper sets up or cleans up; patient completes activity. [place] assists only prior to or following the activity. 4-Supervision or Touching Assistance-helper provides verbal cues and/or touching/steadying and/or contact guard assistance as patient completes activity. Assistance may be provided throughout the activity or intermittently. 3-Partial/Moderate Assistance-helper does LESS THAN HALF the effort. [place] lifts, holds or supports trunk or limbs, but provides less than half the effort. 2-Substantial/Maximal Assistance-helper does MORE THAN HALF the effort. [place] lifts or holds trunk or limbs and provides more than half the effort. 9-Qbgrnduiz-qfvzis does ALL the effort. Patient does none of the effort to complete the activity. Or, the assistance of 2 or more helpers is required for the patient to complete the activity. If activity was not attempted, code reason: 7-Patient Refused. 9-Not Applicable-not attempted and the patient did not perform the activity before the current illness, exacerbation or injury. 10-Not Attempted due to Environmental Limitations-(lack of equipment, weather restraints, etc.). 88-Not Attempted due to Medical Conditions or Safety Concerns. Sit to Stand (QC): 4 Chair/Xxj-sh-Deuvx Xfer(QC): 3 chair approach using FWW is at risk for falls as pt. 6/8 trials, attempts to abandon FWW, turn half way, reach for arm of chair with one hand, becomes stiff at trunk, retropulsive and throws back into chair unsafely. following instructions for sitting is very difficult, verbal and tactile guidance minimally successful Weight Bearing Right Lower Extremity: Right Full Weight Bearing Left Lower Extremity: Left Full Weight Bearing Gait Training Does the Patient Walk?: Yes Walk 10 feet (QC): 4 Walk 50 ft with 2 Turns(QC): 4 Walk 150 ft (QC): 4 Gait Persons Needed: 1 Gait Assistive Device: FWW uneven steps, uncoordinated pattern, doesnt stay in device at times, needs repeated instruction etc Exercises Supine Ex: Bridging, Ankle pumps, Scooting, Straight leg raise, Hip abd/add Supine Reps: 15 Seated Therapy Exercises: Ankle pumps, Sit to stand, Long arc quads, Hip flexion Seated Reps: 15 NuStep Minutes: 10 NuStep Workload: 3 Treatments dressing lower for pants, doned shoes all min to SBA and assist to stand, pulled pants up himself Assessment Current Status: Fair Progress continues to require mod to min assist for all mobility, at risk for falls PT Usp Goals Usp Goals PT Flow Match Sofa Cutter Goals Time Frame: Apr 18, 2022 Roll Left & Right (QC): 6 Sit to Lying (QC): 6 Lying-Sitting on Side/Bed(QC): 6 Sit to Stand (QC): 4 Chair/Rfz-db-Fderg Xfer(QC): 4 Toilet Transfer (QC): 4 Car Transfer (QC): 6 Does the Patient Walk: Yes Walk 10 feet (QC): 5 Walk 50ft with 2 Turns (QC): 5 Walk 150 ft (QC): 5 Walking 10ft on Uneven Surface: 5 1 Step (curb) (QC): 4 4 Steps (QC): 4 12 Steps (QC): 4 Picking up an Object (QC): 4 Does the Pt use WC or Scooter?: Yes Wheel 50 feet with 2 turns (QC: 4 Type: Manual Wheel 150 feet: 4 Type: Manual PT Plan Treatment/Plan Treatment Plan: Continue Plan of Care Treatment Plan: Bed Mobility, Concurrent Therapy, Education, Functional A ctivity Inocencio, Functional Strength, Group Therapy, Gait, Safety, Therapeutic Exercise, Transfers Treatment Duration: Apr 18, 2022 Frequency: At least 5 of 7 days/Wk (IRF) Estimated Hrs Per Day: 1.5 hours per day Patient and/or Family Agrees t: Yes Safety Risks/Education Patient Education: Gait Training, Transfer Techniques, Correct Positioning, Safety Issues Teaching Recipient: Patient Teaching Methods: Demonstration, Discussion Response to Teaching: Unable to Return Demonstration, Unable to Comprehend, Reinforcement Needed Time/GCodes Time In: 745 Time Out: 900 Total Billed Treatment Time: 75 Total Billed Treatment 1,FA30m,GT25m,EX20 ROBIN GRAHAM [employer]ER Mar 20, 2022 08:56
--- NOTE | 2022-03-20 08:58 | Cardiology Progress Note ---
Subjective Date Seen by Provider: Mar 20, 2022 Time Seen by Provider: 08:57 Subjective/Events-last exam Patient was seen at bedside, sitting comfortably. No new complaint Objective-Cardiology Exam Last Set of Vital Signs Vital Signs 03/20/22 07:48 Temp 35.9 Pulse 55 Resp 20 B/P (MAP) 136/62 (86) Pulse Ox 91 O2 Delivery Room Air I&O Intake and Output 03/20/22 00:00 Intake Total 100 ml Balance 100 ml Intake IV Total 100 ml General: Alert, Oriented X3 HEENT: Atraumatic Neck: Supple Lungs: Clear to Auscultation, Normal Air Movement Heart: Regular Rate Abdomen: Soft Extremities: No Edema Skin: No Rashes, No Significant Lesion Neuro: Normal Speech Psych/Mental Status: Mood NL Results Lab Laboratory Tests Test 03/20/22 05:13 Range/Units Prothrombin Time 24.4 H 12.2-14.7 SEC INR Comment 2.1 H 0.8-1.4 A/P-Cardiology Admission Diagnosis UTI CAD PAF hx TAVR Assessment/Plan Generalized debility/weakness, continue PT/OT Paroxysmal atrial fib/flutter, history of cardioversion September 08, 2021. Unable to tolerate diltiazem due to hypotension and bradycardia Beta-blockers were discontinued Amiodarone was decreased to 200 mg once daily Heart rate is slightly better, continue to monitor. 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 [id number] score of 6, yearly risk of stroke without oral anticoagulation is 9.8%. Maintained on Coumadin. Coronary artery disease History of CABG [place] [address] Bradshaw, has been followed by Dr. White and Dr. Samuels after that Cardiac catheterization done July [address] Samuels revealing severe multivessel cachil dehe coronary artery disease. 3 out of 4 patent bypass grafts with the RATLIFF being atretic. 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 Andrew, had complex and prolonged recovery in [facility] secondary to UTI, sepsis, questionable anoxic brain injury Most recent 2D Echo done September 2019 showed LV cavity size is increased and wall thickness is mildly to moderatley increased LV systolic function is mildy decreased with EF 40-45%, diastolic dysfunction. RV systolic function is reduce, LA is mildly dilated measuring 4.8 cm, MV has moderately calcified annulus-sclerosis with mild stenosis. mod TR, PA 35-40 mmHg Hypertension, controlled, continue to monitor. 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
--- NOTE | 2022-03-20 09:31 | Speech Therapy Daily Note ---
Speech Daily Progress Note Subjective Date Seen by Provider: Mar 20, 2022 Time Seen by Provider: 09:00 The patient was seated upright in his recliner, awake and alert upon entrance to his room by the clinician. The patient greeted the clinician appropriately and was agreeable to participation in the cognitive linguistic treatment session. Objective The patient is independently oriented to self, location, city, month, day of the week, and year. The patient does appear to be less confused on this date in comparison to prior sessions. The clinician does believe the patient's cognition is returning to baseline. The clinician reviewed safety precautions and recommendations with the patient on this date which were previously provided by occupational therapy and physical therapy during mobility. The clinician asked the patient how to safely seat himself. The patient stated, "Sit down the right way. You just get that feeling that you are ready." The clinician reviewed how to safely sit down by feeling the chair against the back of his legs and reaching back for the arms. Following the five minute delay, the patient was able to display fair recall stating, "You need to reach back for it." The clinician additionally reviewed walker safety and the necessity to not allow the walker a large amount in front of him. The patient verbalized comprehension of the material, however, frequent verbal prompts for safety will remain necessary. Assessment Assessment Current Status: Fair Progress Treatment Plan Continue Plan of Care Speech Short Term Goals Short Term Goals Short Term Goals 1. The patient will demonstrate improved safety awareness with mild clinician verbal prompting and visual cues. Time Frame-STG: One Week. Speech Manager Media Goals Manager Media Goals 1. The patient will demonstrate improved cognitive linguistic skills for safe discharge to the least restrictive environment. Time Frame: Two Weeks. Speech-Plan Treatment Plan Speech Therapy Treatment Plan: Continue Plan of Care Treatment Duration: Mar 18, 2022 Frequency: Modified Program (IRF) Estimated Hrs Per Day: Other Rehab Potential: Fair Safety Risks/Education Teaching Recipient: Patient Teaching Methods: Discussion Response to Teaching: Reinforcement Needed Education Topics Provided: Safety Precautions Time Speech Therapy Time In: 09:00 Speech Therapy Time Out: 09:30 Total Billed Time: 30 Billed Treatment Time 1IESHA ELIZABECARLOS MANUEL SHAW Mar 20, 2022 09:31
--- NOTE | 2022-03-20 10:50 | Occupational Ther Daily Note ---
OT Current Status-Daily Note Subjective Pt up in recliner, states he just finished with PT, although he just finished with speech therapy.Pt agreeable to OT Tx. Mental Status/Objective Patient Orientation: Person, Confused Acute change in mental status: 1 Inattention: 1 Disorganized thinkin Altered level of consciousness: 0 ADL-Treatment Therapy Code Descriptions/Definitions Functional [place] Measure: 0=Not Assessed/NA 4=Minimal Assistance 1=Total Assistance 5=Supervision or Setup 2=Maximal Assistance 6=Modified [place] 3=Moderate Assistance 7=Complete IndependenceSCALE: Activities may be completed with or without assistive devices. 0-Xqfbooyedz-xkmgbti completes the activity by him/herself with no assistance from a helper. 5-Set-up or Clean-up Assistance-helper sets up or cleans up; patient completes activity. [place] assists only prior to or following the activity. 4-Supervision or Touching Assistance-helper provides verbal cues and/or touching/steadying and/or contact guard assistance as patient completes activity. Assistance may be provided throughout the activity or intermittently. 3-Partial/Moderate Assistance-helper does LESS THAN HALF the effort. [place] lifts, holds or supports trunk or limbs, but provides less than half the effort. 2-Substantial/Maximal Assistance-helper does MORE THAN HALF the effort. [place] lifts or holds trunk or limbs and provides more than half the effort. 2-Wbnagqfim-ctpjqu does ALL the effort. Patient does none of the effort to complete the activity. Or, the assistance of 2 or more helpers is required for the patient to complete the activity. If activity was not attempted, code reason: 7-Patient Refused. 9-Not Applicable-not attempted and the patient did not perform the activity before the current illness, exacerbation or injury. 10-Not Attempted due to Environmental Limitations-(lack of equipment, weather restraints, etc.). 88-Not Attempted due to Medical Conditions or Safety Concerns. Oral Hygiene (QC): 3 (min A standing balance at sink. Min VCs for sequencing.) Shower/Bathe Self (QC): 4 (CGA in stand, close SBA in sitting. Pt able to wash/dry all parts with min verbal cues) Upper Body Dressing (QC): 3 (min A for orientation of shirt. VCs for problem solving) Lower Body Dressing (QC): 3 (min A for orientation of pants, moderte cues for sequencing.) On/Off Footwear: 4 (SBA) Toileting Hygiene (QC): 3 (Min A standing balance, moderate cues for sequencing.) Toilet Transfer (QC): 3 (min A due to retropulsion in stand.) Other Treatment Pt in recliner, stood from recliner, min A due to retropulsion. Pt used FWW to transfer into bathroom and onto BS, step by step cues safety with walker. Pt completed toileting, required step by step cues for clothing management and safety of transfer. Pt completed toileting (urine only even though OT asked if he needed to have BM), then stood at walker and performed pant hike. Pt transferred to FL, min A using FWW, OT assisted pt with balance and walker management for safety with turns. Pt sat on FL, began doffing clothes. Pt requests to use bathroom. Pt donned shoes, then used FWW to return to [facility] over toilet. Pt again, required assistance managing walker with turns and step by step cues for safety and sequencing. Pt completed toileting, unable to have BM, cues for sequencing of clothing management and hygiene. Pt returned to FL, min A with sequencing and walker management. Pt doffed remainder of clothes, completed shower and donned clothes. Pt required min A with shirt for orientation. Pt donned shirt backwards, able to tell it didn't feel right, but unable to problem solve how to fix it. Pt donned brief, difficulty orienting brief requiring assistance. When pt donned pants, he attempted to thread BLEs into same leg hole, required assistance to correct. Pt used FWW to stand at sink, retropulsive during stand, requiring min A. OT attempted to cue pt on widening NILS and retropulsion, but pt had poor self awareness. Pt used FWW to return to recliner, attempting to "launch" himself at recliner prior to getting to recliner. Pt required mod-max A to stay upright, with OT keeping walker close by, step by step cueing for foot positioning, UE positioning, and safety with transfer. Post tx, pt in recliner, call light in reach and all needs met. Chair alarm activated. Education OT Patient Education: Correct positioning, Modified ADL techniques, Progress toward Goal/Update tx plan, Purpose of tx/functional activities Teaching Recipient: Patient Teaching Methods: Discussion Response to Teaching: Reinforcement Needed OT Short Term Goals Short Term Goals Time Frame: Mar 27, 2022 Upper body dressin Lower body dressin Putting on/taking off footwear: 5 OT Interactive Media Marketing Strategist Goals Assisted Goals Time Frame: Apr 10, 2022 Acute change in mental status: 1 Inattention: 1 Disorganized thinkin Altered level of consciousness: 0 Eating (QC): 6 Oral Hygiene (QC): 6 Toileting Hygiene (QC): 6 Shower/Bathe Self (QC): 6 Upper Body Dressing (QC): 6 Lower Body Dressing (QC): 6 On/Off Footwear (QC): 6 Additional Goals: 1-Demonstrate ADL Tasks, 2-Verbalize Understanding, 3- ImproveStrength/Inocencio 1=Demonstrate adherence to instructed precautions during ADL tasks. 2=Patient will verbalize/demonstrate understanding of assistive devices/modifications for ADL. 3=Patient will improve strength/tolerance for activity to enable patient to perform ADL's. OT Education/Plan Problem List/Assessment Assessment: Decreased Activ Tolerance, Decreased Safety Aware, Decreased UE Strength, Impaired Cognition, Impaired Coordination, Impaired Funct Balance, Impaired I ADL's, Impaired Self-Care Skills Discharge Recommendations Plan/Recommendations: Continue POC Treatment Plan/Plan of Care Patient would benefit from OT for education, treatment and training to promote independence in ADL's, mobility, safety and/or upper extremity function for ADL's. Plan of Care: ADL Retraining, Functional Mobility, Group Exercise/Act as Ind, UE Funct Exercise/Act Treatment Duration: Apr 10, 2022 Frequency: At least 5 of 7 days/Wk (IRF) Estimated Hrs Per Day: 1.5 hours per day Agreement: Yes Rehab Potential: Fair Time/GCodes Start Time: 09:30 Stop Time: 10:45 Total Time Billed (hr/min): 75 Billed Treatment Time 1, ADL 5 HALLE FRANK OT Mar 20, 2022 10:50
[2022-03-20] MEDS: TAMSULOSIN 0.4 MG (FLOMAX) CAP PO SCH (17:47)
[2022-03-20] MEDS ORDERED: warFARin 10 MG (COUMADIN) TAB PO SCH (18:00)
[2022-03-20 19:31] VITALS: BP 132/70
[2022-03-20] MEDS: QUEtiapine 25 MG (SEROquel) TAB IMMEDIATE RELEASE PO SCH (22:01)
[2022-03-20] MEDS: ALLOPURINOL 100 MG (ZYLOPRIM) TAB PO SCH (22:01)
[2022-03-21] MEDS: MEROPENEM 500 MG/NS 100 ML IVPB IV SCH ×8 (04:00→20:55)
--- NOTE | 2022-03-21 06:19 | PM&R Progress Note ---
Subjective HPI/CC On Admission Date Seen by Provider: Mar 21, 2022 Time Seen by Provider: 10:30 Subjective/Events-last exam 03/21/2022: No major issues Extended Meropenem to 7 days total No falls No pain Walks very slowly 03/20/2022: No major issues BM finally after multiple meds No falls Confusion is baseline now 03/19/2022: Pt is doing better Needs to have a bowel movement so I added laxatives Otherwise he is doing really well Encephalopathy is clearing 03/18/2022: Patient doing pretty well Sleeps a lot Moves around pretty slowly Reviewed meds and labs Appreciate Dr. Burnette INR will be managed by Dr. Burnette and pharmacy Tolerating meropenem Review of Systems General: Fatigue, Malaise Neurological: Confusion Objective Exam Vital Signs Vital Signs Date Time Temp Pulse Resp B/P (MAP) Pulse Ox O2 Delivery O2 Flow Rate FiO2 03/21/22 08:47 Room Air 03/21/22 07:24 36.9 76 18 132/69 (90) 92 Capillary Refill : General Appearance: No Apparent Distress, WD/WN, Chronically ill HEENT: PERRL/EOMI, Normal ENT Inspection, Pharynx Normal Neck: Full Range of Motion, Normal Inspection, Non Tender, Supple, Carotid Bruit Respiratory: Chest Non Tender, Lungs Clear, Normal Breath Sounds, No Accessory Muscle Use, No Respiratory Distress Cardiovascular: Regular Rate, Rhythm, No Edema, No Gallop, No JVD, No Murmur, Normal Peripheral Pulses Gastrointestinal: Normal Bowel Sounds, No Organomegaly, No Pulsatile Mass, Non Tender, Soft Back: Normal Inspection, No CVA Tenderness, No Vertebral Tenderness Extremity: Normal Capillary Refill, Normal Inspection, Normal Range of Motion, Non Tender, No Calf Tenderness, No Pedal Edema Neurologic/Psychiatric: Alert, Oriented x3, contracts analyst II-XII Norm as Tested, Abnormal Gait, Depressed Affect, Motor Weakness, Other (poor recall) Skin: Normal Color, Warm/Dry Lymphatic: No Adenopathy Results/Procedures Lab Patient resulted labs reviewed. FIM Transfers Therapy Code Descriptions/Definitions Functional [place] Measure: 0=Not Assessed/NA 4=Minimal Assistance 1=Total Assistance 5=Supervision or Setup 2=Maximal Assistance 6=Modified [place] 3=Moderate Assistance 7=Complete IndependenceSCALE: Activities may be completed with or without assistive devices. 7-Ejpdquzhdm-wvguqof completes the activity by him/herself with no assistance from a helper. 5-Set-up or Clean-up Assistance-helper sets up or cleans up; patient completes activity. [place] assists only prior to or following the activity. 4-Supervision or Touching Assistance-helper provides verbal cues and/or touching/steadying and/or contact guard assistance as patient completes activity. Assistance may be provided throughout the activity or intermittently. 3-Partial/Moderate Assistance-helper does LESS THAN HALF the effort. [place] lifts, holds or supports trunk or limbs, but provides less than half the effort. 2-Substantial/Maximal Assistance-helper does MORE THAN HALF the effort. [place] lifts or holds trunk or limbs and provides more than half the effort. 6-Habdjpqkk-yqjofg does ALL the effort. Patient does none of the effort to complete the activity. Or, the assistance of 2 or more helpers is required for the patient to complete the activity. If activity was not attempted, code reason: 7-Patient Refused. 9-Not Applicable-not attempted and the patient did not perform the activity before the current illness, exacerbation or injury. 10-Not Attempted due to Environmental Limitations-(lack of equipment, weather restraints, etc.). 88-Not Attempted due to Medical Conditions or Safety Concerns. Roll Left to Right (QC): 6 Sit to Lying (QC): 6 Sit to Stand (QC): 4 Chair/Hkn-rn-Kearz Xfer(QC): 3 Car Transfer (QC): 4 Gait Training Does the Patient Walk?: Yes Distance: 200' Walk 10 feet (QC): 4 Walk 50 ft with 2 Turns(QC): 4 Walk 150 ft (QC): 4 Walking 10ft/uneven surface-QC: 3 Gait Persons Needed: 1 Gait Assistive Device: FWW Wheelchair Training Does the Pt Use a Wheelchair?: Yes Wheel 50 ft with 2 turns (QC): 4 Wheel 150 ft (QC): 88 Type of Wheelchair: Manual Stair Training #of Steps: 8 1 Step (curb) (QC): 3 4 Steps (QC): 3 12 Steps (QC): 88 (not safe to perform due to weakness) Balance Picking up an Object (QC): 88 ADL-Treatment Eating (QC): 5 (set up with containers and cutting food. ) Oral Hygiene (QC): 3 (min A standing balance at sink. Min VCs for sequencing.) Shower/Bathe Self (QC): 4 (CGA in stand, close SBA in sitting. Pt able to wash/dry all parts with min verbal cues) Upper Body Dressing (QC): 3 (min A for orientation of shirt. VCs for problem solving) Lower Body Dressing (QC): 3 (min A for orientation of pants, moderte cues for sequencing.) On/Off Footwear (QC): 4 (SBA) Toileting Hygiene (QC): 3 (Min A standing balance, moderate cues for sequencing.) Toilet Transfer (QC): 3 (min A due to retropulsion in stand.) Assessment/Plan Assessment and Plan Assess & Plan/Chief Complaint Assessment: 1. Urinary Tract infection: History of ESBL, and positive UA per home nurse of Josie stanton - Start Meropenem 500mg IV q6 hours 2. Acute encephalopathy on top of dementia Patient more acute confused per patient's family. AO x2 on admission (person and place) - Cont treatment of UTI 3. Debility - PT/OT/CURRICULUM AND ASSESSMENT COORDINATOR ordered and following 4. Hx of Atrial fibrillation - Cont Coumadin 5mg daily and then 10mg qFriday. - Cont Amiodarone 200 mg BID 5. Hx of CAD s/p CABG - Cont Atorvastatin 100mg daily - Cont Metoprolol succinate 25mg daily - Cont Lasix 20mg PO daily 6. BPH - Cont Finasteride 5mg daily - Cont Tamsulosin 0.4mg daily Dispo: Cont admission to inpatient rehab CODE: Full Code 03/18/2022: Supportive care Meropenem 03/19/2022: Monitor closely BM regimen 03/20/2022: Monitor closely Fall risk 03/21/2022: Meropenem 7 days total (1) Debility (2) Anticoagulated on warfarin (3) Atrial flutter Status: Acute (4) BPH (benign prostatic hyperplasia) Status: Acute (5) HLD (hyperlipidemia) Status: Chronic (6) HTN (hypertension) Status: Chronic (7) Dementia Status: Chronic (8) Urinary tract infection Status: Acute SANDRA ORELLANA DO Mar 21, 2022 06:19
[2022-03-21] MEDS: KCL 10 MEQ TAB (MICRO K) PO SCH (06:44)
[2022-03-21 07:24] VITALS: BP 132/69
[2022-03-21] MEDS: DOCUSATE SODIUM 100 MG (COLACE) CAP PO SCH ×2 (08:16→20:55)
[2022-03-21] MEDS: buPROPion SR 150 MG (WELLBUTRIN SR) TAB PO SCH (08:16)
[2022-03-21] MEDS: FINASTERIDE (PROSCAR) 5 MG TAB PO SCH (08:17)
[2022-03-21] MEDS: AMIODARONE 200 MG (CORDARONE) TAB PO SCH (08:17)
[2022-03-21] MEDS: AtorvaSTATin TABLET 10 MG TABLET PO SCH (08:17)
[2022-03-21] MEDS: SENNA W/DOCUSATE (SENOKOT S) TABLET PO SCH ×2 (08:17→20:55)
[2022-03-21] MEDS: PARoxetine 20 MG (PAXIL) TAB PO SCH (08:17)
[2022-03-21] MEDS: PANTOPRAZOLE 40 MG (PROTONIX) TAB PO SCH (08:17)
[2022-03-21] MEDS: polyethylene glycoL POWDER 17 GM (MIRALAX) PACK PO SCH ×2 (08:18→21:00)
[2022-03-21] MEDS: FUROSEMIDE 20 MG (LASIX) TAB PO SCH (08:20)
--- NOTE | 2022-03-21 11:22 | Physical Therapy Daily Note ---
PT Daily Note-Current Subjective Upon arrival, pt was seated in recliner. Pt reports that he has no pain, but he did not sleep well. Pt agrees to PT. Pain Numeric Pain Scale: 0-No Pain Section J - Health Conditions 1. Rarely or not at all 2. Occasionally 3. Frequently 4. Almost constantly 8. Unable to answer Pain Effect on Sleep: 8 Pain Interference with Therapy: 1 Pain Interference w/Day-to-Day: 8 Mental Status Patient Orientation: Person, Confused (mild), Situation Transfers SCALE: Activities may be completed with or without assistive devices. 4-Qcbjuryuzk-uvunsnp completes the activity by him/herself with no assistance from a helper. 5-Set-up or Clean-up Assistance-helper sets up or cleans up; patient completes activity. [place] assists only prior to or following the activity. 4-Supervision or Touching Assistance-helper provides verbal cues and/or touching/steadying and/or contact guard assistance as patient completes activity. Assistance may be provided throughout the activity or intermittently. 3-Partial/Moderate Assistance-helper does LESS THAN HALF the effort. [place] lifts, holds or supports trunk or limbs, but provides less than half the effort. 2-Substantial/Maximal Assistance-helper does MORE THAN HALF the effort. [place] lifts or holds trunk or limbs and provides more than half the effort. 3-Lyjunbvyd-vpgfpk does ALL the effort. Patient does none of the effort to complete the activity. Or, the assistance of 2 or more helpers is required for the patient to complete the activity. If activity was not attempted, code reason: 7-Patient Refused. 9-Not Applicable-not attempted and the patient did not perform the activity before the current illness, exacerbation or injury. 10-Not Attempted due to Environmental Limitations-(lack of equipment, weather restraints, etc.). 88-Not Attempted due to Medical Conditions or Safety Concerns. Weight Bearing Right Lower Extremity: Right Full Weight Bearing Left Lower Extremity: Left Full Weight Bearing Gait Training Does the Patient Walk?: No and Walking Goal IS indicated Exercises Seated Therapy Exercises: Ankle pumps (20), Long arc quads, Hip flexion, Hip abd/add, Glut set Seated Reps: 15 Treatments Pt completed all activities listed above. Once PT was concluded, pt was seated in recliner with call light and tray in reach and all needs met. Assessment Current Status: Good Progress Pt required verbal cueing on how to complete activities. Pt would benefit from continued skilled PT to improve on strength and activity tolerance. PT Usp Goals Lap Cutter Goals PT Usp Goals Time Frame: Apr 18, 2022 Roll Left & Right (QC): 6 Sit to Lying (QC): 6 Lying-Sitting on Side/Bed(QC): 6 Sit to Stand (QC): 4 Chair/Wqm-qn-Zqxux Xfer(QC): 4 Toilet Transfer (QC): 4 Car Transfer (QC): 6 Does the Patient Walk: Yes Walk 10 feet (QC): 5 Walk 50ft with 2 Turns (QC): 5 Walk 150 ft (QC): 5 Walking 10ft on Uneven Surface: 5 1 Step (curb) (QC): 4 4 Steps (QC): 4 12 Steps (QC): 4 Picking up an Object (QC): 4 Does the Pt use WC or Scooter?: Yes Wheel 50 feet with 2 turns (QC: 4 Type: Manual Wheel 150 feet: 4 Type: Manual PT Plan Problem List Problem List: Activity Tolerance, Functional Strength Treatment/Plan Treatment Plan: Continue Plan of Care Treatment Plan: Bed Mobility, Concurrent Therapy, Education, Functional Activity Inocencio, Functional Strength, Group Therapy, Gait, Safety, Therapeutic Exercise, Transfers Treatment Duration: Apr 18, 2022 Frequency: At least 5 of 7 days/Wk (IRF) Estimated Hrs Per Day: 1.5 hours per day Patient and/or Family Agrees t: Yes Time/GCodes Time In: 0959 Time Out: 1017 Total Billed Treatment Time: 18 Total Billed Treatment 1,Ex MARLEN MOHAN PTA Mar 21, 2022 11:22
[2022-03-21] MEDS: TAMSULOSIN 0.4 MG (FLOMAX) CAP PO SCH (17:25)
[2022-03-21] MEDS: warFARin 5 MG (COUMADIN) TAB PO SCH (17:25)
[2022-03-21 19:34] VITALS: BP 143/63
[2022-03-21] MEDS: ALLOPURINOL 100 MG (ZYLOPRIM) TAB PO SCH (20:55)
[2022-03-21] MEDS: ALPRAZolam 0.25 MG (XANAX) TAB PO PRN (20:55)
[2022-03-21] MEDS: QUEtiapine 25 MG (SEROquel) TAB IMMEDIATE RELEASE PO SCH (20:55)
[2022-03-22] MEDS: MEROPENEM 500 MG/NS 100 ML IVPB IV SCH ×8 (03:15→20:24)
[2022-03-22] MEDS: KCL 10 MEQ TAB (MICRO K) PO SCH (06:42)
[2022-03-22 08:00] VITALS: BP 147/68
[2022-03-22] MEDS: SENNA W/DOCUSATE (SENOKOT S) TABLET PO SCH ×2 (09:22→20:25)
[2022-03-22] MEDS: PANTOPRAZOLE 40 MG (PROTONIX) TAB PO SCH (09:22)
[2022-03-22] MEDS: DOCUSATE SODIUM 100 MG (COLACE) CAP PO SCH ×2 (09:23→20:26)
[2022-03-22] MEDS: AtorvaSTATin TABLET 10 MG TABLET PO SCH (09:23)
[2022-03-22] MEDS: AMIODARONE 200 MG (CORDARONE) TAB PO SCH (09:23)
[2022-03-22] MEDS: FINASTERIDE (PROSCAR) 5 MG TAB PO SCH (09:23)
[2022-03-22] MEDS: buPROPion SR 150 MG (WELLBUTRIN SR) TAB PO SCH (09:23)
[2022-03-22] MEDS: PARoxetine 20 MG (PAXIL) TAB PO SCH (09:23)
[2022-03-22] MEDS: FUROSEMIDE 20 MG (LASIX) TAB PO SCH (09:24)
--- NOTE | 2022-03-22 15:29 | PM&R Progress Note ---
Subjective HPI/CC On Admission Date Seen by Provider: Mar 22, 2022 Time Seen by Provider: 15:00 Subjective/Events-last exam 03/22/2022: No major events Bowels are moving Tolerating IV antibiotics Patient is baseline 03/21/2022: No major issues Extended Meropenem to 7 days total No falls No pain Walks very slowly 03/20/2022: No major issues BM finally after multiple meds No falls Confusion is baseline now 03/19/2022: Pt is doing better Needs to have a bowel movement so I added laxatives Otherwise he is doing really well Encephalopathy is clearing 03/18/2022: Patient doing pretty well Sleeps a lot Moves around pretty slowly Reviewed meds and labs Appreciate Dr. Burnette INR will be managed by Dr. Burntete and pharmacy Tolerating meropenem Review of Systems General: Fatigue, Malaise Neurological: Confusion Objective Exam Vital Signs Vital Signs Date Time Temp Pulse Resp B/P (MAP) Pulse Ox O2 Delivery O2 Flow Rate FiO2 03/22/22 20:41 36.4 60 14 138/70 (92) 96 Room Air Capillary Refill : General Appearance: No Apparent Distress, WD/WN, Chronically ill HEENT: PERRL/EOMI, Normal ENT Inspection, Pharynx Normal Neck: Full Range of Motion, Normal Inspection, Non Tender, Supple, Carotid Bruit Respiratory: Chest Non Tender, Lungs Clear, Normal Breath Sounds, No Accessory Muscle Use, No Respiratory Distress Cardiovascular: Regular Rate, Rhythm, No Edema, No Gallop, No JVD, No Murmur, Normal Peripheral Pulses Gastrointestinal: Normal Bowel Sounds, No Organomegaly, No Pulsatile Mass, Non Tender, Soft Back: Normal Inspection, No CVA Tenderness, No Vertebral Tenderness Extremity: Normal Capillary Refill, Normal Inspection, Normal Range of Motion, Non Tender, No Calf Tenderness, No Pedal Edema Neurologic/Psychiatric: Alert, Oriented x3, burrer machine II-XII Norm as Tested, Abnormal Gait, Depressed Affect, Motor Weakness, Other (poor recall) Skin: Normal Color, Warm/Dry Lymphatic: No Adenopathy Results/Procedures Lab Patient resulted labs reviewed. FIM Transfers Therapy Code Descriptions/Definitions Functional [place] Measure: 0=Not Assessed/NA 4=Minimal Assistance 1=Total Assistance 5=Supervision or Setup 2=Maximal Assistance 6=Modified [place] 3=Moderate Assistance 7=Complete IndependenceSCALE: Activities may be completed with or without assistive devices. 5-Uzdzvfeouk-sxdsihc completes the activity by him/herself with no assistance from a helper. 5-Set-up or Clean-up Assistance-helper sets up or cleans up; patient completes activity. [place] assists only prior to or following the activity. 4-Supervision or Touching Assistance-helper provides verbal cues and/or touching/steadying and/or contact guard assistance as patient completes activity. Assistance may be provided throughout the activity or intermittently. 3-Partial/Moderate Assistance-helper does LESS THAN HALF the effort. [place] lifts, holds or supports trunk or limbs, but provides less than half the effort. 2-Substantial/Maximal Assistance-helper does MORE THAN HALF the effort. [place] lifts or holds trunk or limbs and provides more than half the effort. 3-Ornbicjkf-xdcufq does ALL the effort. Patient does none of the effort to complete the activity. Or, the assistance of 2 or more helpers is required for the patient to complete the activity. If activity was not attempted, code reason: 7-Patient Refused. 9-Not Applicable-not attempted and the patient did not perform the activity before the current illness, exacerbation or injury. 10-Not Attempted due to Environmental Limitations-(lack of equipment, weather restraints, etc.). 88-Not Attempted due to Medical Conditions or Safety Concerns. Roll Left to Right (QC): 6 Sit to Lying (QC): 6 Sit to Stand (QC): 4 Chair/Rzw-uf-Dryfq Xfer(QC): 3 Car Transfer (QC): 4 Gait Training Does the Patient Walk?: No and Walking Goal IS indicated Distance: 200' Walk 10 feet (QC): 4 Walk 50 ft with 2 Turns(QC): 4 Walk 150 ft (QC): 4 Walking 10ft/uneven surface-QC: 3 Gait Persons Needed: 1 Gait Assistive Device: FWW Wheelchair Training Does the Pt Use a Wheelchair?: Yes Wheel 50 ft with 2 turns (QC): 4 Wheel 150 ft (QC): 88 Type of Wheelchair: Manual Stair Training #of Steps: 8 1 Step (curb) (QC): 3 4 Steps (QC): 3 12 Steps (QC): 88 (not safe to perform due to weakness) Balance Picking up an Object (QC): 88 ADL-Treatment Eating (QC): 5 (set up with containers and cutting food. ) Oral Hygiene (QC): 3 (min A standing balance at sink. Min VCs for sequencing.) Shower/Bathe Self (QC): 4 (CGA in stand, close SBA in sitting. Pt able to wash/dry all parts with min verbal cues) Upper Body Dressing (QC): 3 (min A for orientation of shirt. VCs for problem solving) Lower Body Dressing (QC): 3 (min A for orientation of pants, moderte cues for sequencing.) On/Off Footwear (QC): 4 (SBA) Toileting Hygiene (QC): 3 (Min A standing balance, moderate cues for sequencing.) Toilet Transfer (QC): 3 (min A due to retropulsion in stand.) Assessment/Plan Assessment and Plan Assess & Plan/Chief Complaint Assessment: 1. Urinary Tract infection: History of ESBL, and positive UA per home nurse of Josie stanton - Start Meropenem 500mg IV q6 hours 2. Acute encephalopathy on top of dementia Patient more acute confused per patient's family. AO x2 on admission (person and place) - Cont treatment of UTI 3. Debility - PT/OT/CORROSION CONTROL FITTER ordered and following 4. Hx of Atrial fibrillation - Cont Coumadin 5mg daily and then 10mg qFriday. - Cont Amiodarone 200 mg BID 5. Hx of CAD s/p CABG - Cont Atorvastatin 100mg daily - Cont Metoprolol succinate 25mg daily - Cont Lasix 20mg PO daily 6. BPH - Cont Finasteride 5mg daily - Cont Tamsulosin 0.4mg daily Dispo: Cont admission to inpatient rehab CODE: Full Code 03/18/2022: Supportive care Meropenem 03/19/2022: Monitor closely BM regimen 03/20/2022: Monitor closely Fall risk 03/21/2022: Meropenem 7 days total 03/22/2022: Supportive care Antibiotics maintained (1) Debility (2) Anticoagulated on warfarin (3) Atrial flutter Status: Acute (4) BPH (benign prostatic hyperplasia) Status: Acute (5) HLD (hyperlipidemia) Status: Chronic (6) HTN (hypertension) Status: Chronic (7) Dementia Status: Chronic (8) Urinary tract infection Status: Acute SANDRA ORELLANA DO Mar 22, 2022 15:29
[2022-03-22] MEDS: polyethylene glycoL POWDER 17 GM (MIRALAX) PACK PO SCH ×2 (16:58→20:25)
[2022-03-22] MEDS: warFARin 5 MG (COUMADIN) TAB PO SCH (17:46)
[2022-03-22] MEDS: TAMSULOSIN 0.4 MG (FLOMAX) CAP PO SCH (17:47)
[2022-03-22] MEDS: ALLOPURINOL 100 MG (ZYLOPRIM) TAB PO SCH (20:25)
[2022-03-22] MEDS: QUEtiapine 25 MG (SEROquel) TAB IMMEDIATE RELEASE PO SCH (20:25)
[2022-03-22 20:41] VITALS: BP 138/70
[2022-03-23] MEDS: MEROPENEM 500 MG/NS 100 ML IVPB IV SCH ×8 (02:48→21:21)
--- NOTE | 2022-03-23 06:01 | PM&R Progress Note ---
Subjective HPI/CC On Admission Date Seen by Provider: Mar 23, 2022 Time Seen by Provider: 08:30 Subjective/Events-last exam 03/23/2022: No major changes Tolerating the Meropenem Ambulating well just slow 03/22/2022: No major events Bowels are moving Tolerating IV antibiotics Patient is baseline 03/21/2022: No major issues Extended Meropenem to 7 days total No falls No pain Walks very slowly 03/20/2022: No major issues BM finally after multiple meds No falls Confusion is baseline now 03/19/2022: Pt is doing better Needs to have a bowel movement so I added laxatives Otherwise he is doing really well Encephalopathy is clearing 03/18/2022: Patient doing pretty well Sleeps a lot Moves around pretty slowly Reviewed meds and labs Appreciate Dr. Burnette INR will be managed by Dr. Burnette and pharmacy Tolerating meropenem Review of Systems General: Fatigue, Malaise Neurological: Confusion Objective Exam Vital Signs Vital Signs Date Time Temp Pulse Resp B/P (MAP) Pulse Ox O2 Delivery O2 Flow Rate FiO2 03/23/22 20:10 Room Air 03/23/22 19:51 36.5 74 16 166/74 (104) 93 Capillary Refill : General Appearance: No Apparent Distress, WD/WN, Chronically ill HEENT: PERRL/EOMI, Normal ENT Inspection, Pharynx Normal Neck: Full Range of Motion, Normal Inspection, Non Tender, Supple, Carotid Bruit Respiratory: Chest Non Tender, Lungs Clear, Normal Breath Sounds, No Accessory Muscle Use, No Respiratory Distress Cardiovascular: Regular Rate, Rhythm, No Edema, No Gallop, No JVD, No Murmur, Normal Peripheral Pulses Gastrointestinal: Normal Bowel Sounds, No Organomegaly, No Pulsatile Mass, Non Tender, Soft Back: Normal Inspection, No CVA Tenderness, No Vertebral Tenderness Extremity: Normal Capillary Refill, Normal Inspection, Normal Range of Motion, Non Tender, No Calf Tenderness, No Pedal Edema Neurologic/Psychiatric: Alert, Oriented x3, quarrying manager II-XII Norm as Tested, Abnormal Gait, Depressed Affect, Motor Weakness, Other (poor recall) Skin: Normal Color, Warm/Dry Lymphatic: No Adenopathy Results/Procedures Lab Laboratory Tests 03/23/22 06:03 Patient resulted labs reviewed. FIM Transfers Therapy Code Descriptions/Definitions Functional [place] Measure: 0=Not Assessed/NA 4=Minimal Assistance 1=Total Assistance 5=Supervision or Setup 2=Maximal Assistance 6=Modified [place] 3=Moderate Assistance 7=Complete IndependenceSCALE: Activities may be completed with or without assistive devices. 4-Tvaajgylmh-batmrjw completes the activity by him/herself with no assistance from a helper. 5-Set-up or Clean-up Assistance-helper sets up or cleans up; patient completes activity. [place] assists only prior to or following the activity. 4-Supervision or Touching Assistance-helper provides verbal cues and/or touching/steadying and/or contact guard assistance as patient completes activity. Assistance may be provided throughout the activity or intermittently. 3-Partial/Moderate Assistance-helper does LESS THAN HALF the effort. [place] lifts, holds or supports trunk or limbs, but provides less than half the effort. 2-Substantial/Maximal Assistance-helper does MORE THAN HALF the effort. [place] lifts or holds trunk or limbs and provides more than half the effort. 6-Cjqikeiaf-zjxqna does ALL the effort. Patient does none of the effort to co mplete the activity. Or, the assistance of 2 or more helpers is required for the patient to complete the activity. If activity was not attempted, code reason: 7-Patient Refused. 9-Not Applicable-not attempted and the patient did not perform the activity before the current illness, exacerbation or injury. 10-Not Attempted due to Environmental Limitations-(lack of equipment, weather restraints, etc.). 88-Not Attempted due to Medical Conditions or Safety Concerns. Roll Left to Right (QC): 6 Sit to Lying (QC): 6 Sit to Stand (QC): 4 Chair/Ohh-yu-Lqbka Xfer(QC): 3 Car Transfer (QC): 4 Gait Training Does the Patient Walk?: No and Walking Goal IS indicated Distance: 200' Walk 10 feet (QC): 4 Walk 50 ft with 2 Turns(QC): 4 Walk 150 ft (QC): 4 Walking 10ft/uneven surface-QC: 3 Gait Persons Needed: 1 Gait Assistive Device: FWW Wheelchair Training Does the Pt Use a Wheelchair?: Yes Wheel 50 ft with 2 turns (QC): 4 Wheel 150 ft (QC): 88 Type of Wheelchair: Manual Stair Training #of Steps: 8 1 Step (curb) (QC): 3 4 Steps (QC): 3 12 Steps (QC): 88 (not safe to perform due to weakness) Balance Picking up an Object (QC): 88 ADL-Treatment Eating (QC): 5 (set up with containers and cutting food. ) Oral Hygiene (QC): 3 (min A standing balance at sink. Min VCs for sequencing.) Shower/Bathe Self (QC): 4 (CGA in stand, close SBA in sitting. Pt able to wash/dry all parts with min verbal cues) Upper Body Dressing (QC): 3 (min A for orientation of shirt. VCs for problem solving) Lower Body Dressing (QC): 3 (min A for orientation of pants, moderte cues for sequencing.) On/Off Footwear (QC): 4 (SBA) Toileting Hygiene (QC): 3 (Min A standing balance, moderate cues for sequencing.) Toilet Transfer (QC): 3 (min A due to retropulsion in stand.) Assessment/Plan Assessment and Plan Assess & Plan/Chief Complaint Assessment: 1. Urinary Tract infection: History of ESBL, and positive UA per home nurse of Josie stanton - Start Meropenem 500mg IV q6 hours 2. Acute encephalopathy on top of dementia Patient more acute confused per patient's family. AO x2 on admission (person and place) - Cont treatment of UTI 3. Debility - PT/OT/MANAGER MOTOR ordered and following 4. Hx of Atrial fibrillation - Cont Coumadin 5mg daily and then 10mg qFriday. - Cont Amiodarone 200 mg BID 5. Hx of CAD s/p CABG - Cont Atorvastatin 100mg daily - Cont Metoprolol succinate 25mg daily - Cont Lasix 20mg PO daily 6. BPH - Cont Finasteride 5mg daily - Cont Tamsulosin 0.4mg daily Dispo: Cont admission to inpatient rehab CODE: Full Code 03/18/2022: Supportive care Meropenem 03/19/2022: Monitor closely BM regimen 03/20/2022: Monitor closely Fall risk 03/21/2022: Meropenem 7 days total 03/22/2022: Supportive care Antibiotics maintained 03/23/2022: Monitor closely (1) Debility (2) Anticoagulated on warfarin (3) Atrial flutter Status: Acute (4) BPH (benign prostatic hyperplasia) Status: Acute (5) HLD (hyperlipidemia) Status: Chronic (6) HTN (hypertension) Status: Chronic (7) Dementia Status: Chronic (8) Urinary tract infection Status: Acute SANDRA ORELLANA DO Mar 23, 2022 06:01
[2022-03-23] MEDS: KCL 10 MEQ TAB (MICRO K) PO SCH (06:22)
[2022-03-23 06:41] LABS: BASOPHILS # (AUTO) 0.1 10^3/uL (0.0-0.1); BASOPHILS % (AUTO) 1 % (0-10); EOSINOPHILS # (AUTO) 0.4 10^3/uL (0.0-0.3); EOSINOPHILS % (AUTO) 5 % (0-10); HEMATOCRIT 37 % (40-54); HEMOGLOBIN 11.9 g/dL (13.3-17.7); LYMPHOCYTES # (AUTO) 1.6 10^3/uL (1.0-4.0); LYMPHOCYTES % (AUTO) 20 % (12-44); MEAN CORPUSCULAR HEMOGLOBIN 29 pg (25-34); MEAN CORPUSCULAR HGB CONC 32 g/dL (32-36); MEAN CORPUSCULAR VOLUME 91 fL (80-99); MEAN PLATELET VOLUME 12.3 fL (9.0-12.2); MONOCYTES % (AUTO) 13 % (0-12); NEUTROPHILS % (AUTO) 61 % (42-75); PLATELET COUNT 200 10^3/uL (130-400); WHITE BLOOD COUNT 8.1 10^3/uL (4.3-11.0)
[2022-03-23 06:50] LABS: INR 2.5 (0.8-1.4); PROTHROMBIN TIME PATIENT 27.3 SEC (12.2-14.7)
[2022-03-23 07:05] LABS: ALBUMIN 3.3 GM/DL (3.2-4.5); POTASSIUM 3.8 MMOL/L (3.6-5.0)
[2022-03-23 07:06] LABS: CALCIUM 8.7 MG/DL (8.5-10.1)
[2022-03-23 07:07] LABS: TOTAL PROTEIN 6.1 GM/DL (6.4-8.2)
[2022-03-23 07:09] LABS: BILIRUBIN,TOTAL 0.5 MG/DL (0.1-1.0)
[2022-03-23 07:11] LABS: CREATININE SERUM 0.85 MG/DL (0.60-1.30)
[2022-03-23] MEDS: FINASTERIDE (PROSCAR) 5 MG TAB PO SCH (07:14)
[2022-03-23] MEDS: buPROPion SR 150 MG (WELLBUTRIN SR) TAB PO SCH (07:14)
[2022-03-23] MEDS: DOCUSATE SODIUM 100 MG (COLACE) CAP PO SCH ×2 (07:14→21:20)
[2022-03-23] MEDS: AtorvaSTATin TABLET 10 MG TABLET PO SCH (07:14)
[2022-03-23] MEDS: FUROSEMIDE 20 MG (LASIX) TAB PO SCH (07:14)
[2022-03-23] MEDS: AMIODARONE 200 MG (CORDARONE) TAB PO SCH (07:14)
[2022-03-23] MEDS: SENNA W/DOCUSATE (SENOKOT S) TABLET PO SCH ×2 (07:14→21:20)
[2022-03-23] MEDS: PARoxetine 20 MG (PAXIL) TAB PO SCH (07:14)
[2022-03-23] MEDS: PANTOPRAZOLE 40 MG (PROTONIX) TAB PO SCH (07:18)
[2022-03-23 07:44] VITALS: BP 145/68
--- NOTE | 2022-03-23 08:38 | Cardiology Progress Note ---
Subjective Date Seen by Provider: Mar 23, 2022 Time Seen by Provider: 08:36 Subjective/Events-last exam Patient is sitting up in chair, no new complaints. Denies any chest pain or dyspnea. Review of Systems General: No Chills, No Night Sweats, No Fatigue, No Malaise, No Appetite, No Other HEENT: No Head Aches, No Visual Changes, No Eye Pain, No Ear Pain, No Dysphasi a, No Sinus Congestion, No Post Nasal Drip, No Sore Throat, No Other Pulmonary: No Dyspnea, No Cough, No Pleuritic Chest Pain, No Other Cardiovascular: Edema; No: Chest Pain, Palpitations, Orthopnea, Paroxysmal Noc. Dyspnea, Lt Headedness, Other Objective-Cardiology Exam Last Set of Vital Signs Vital Signs 03/23/22 07:44 Temp 36.2 Pulse 67 Resp 20 B/P (MAP) 145/68 (93) Pulse Ox 91 O2 Delivery Room Air General: Alert, Oriented X3 HEENT: Atraumatic Neck: Supple Lungs: Clear to Auscultation, Normal Air Movement Heart: Regular Rate, Normal S1, Normal S2 Abdomen: Soft Extremities: Other (Peripheral edema) Skin: No Rashes, No Significant Lesion Neuro: Normal Speech Psych/Mental Status: Mood NL Results Lab Laboratory Tests 03/23/22 06:03 A/P-Cardiology Admission Diagnosis UTI CAD PAF hx TAVR Assessment/Plan Generalized debility/weakness, continue PT/OT Paroxysmal atrial fib/flutter, history of cardioversion September 08, 2021. Unable to tolerate diltiazem due to hypotension and bradycardia Beta-blockers were discontinued Amiodarone was decreased to 200 mg once daily Heart rate is better, continue to monitor. 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 [id number] score of 6, yearly risk of stroke without oral anticoagulation is 9.8%. Maintained on Coumadin. Coronary artery disease History of CABG [place] [address] Bradshaw, has been followed by Dr. White and Dr. Samuels after that Cardiac catheterization done July [address] Samuels revealing severe multivessel curyung coronary artery disease. 3 out of 4 patent bypass grafts with the RATLIFF being atretic. 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 Andrew, had complex and prolonged recovery in [facility] secondary to UTI, sepsis, questionable anoxic brain injury Most recent 2D Echo done September 2019 showed LV cavity size is increased and wall thickness is mildly to moderatley increased LV systolic function is mildy decreased with EF 40-45%, diastolic dysfunction. RV systolic function is reduce, LA is mildly dilated measuring 4.8 cm, MV has moderately calcified annulus-sclerosis with mild stenosis. mod TR, PA 35-40 mmHg Hypertension, controlled, continue to monitor. 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 Supervisory-Addendum Brief Supervisory Addendum Participated in pt care: history, MDM, physical Personally performed: exam, history, MDM Care discussed with: ENOCH Results interpretation: Verified all documentation Notes: Patient was seen and evaluated with Genoveva, examination performed, management plan was discussed, agree with the current scribed note, I made few changes to the note using Italic font Patient was seen at bedside, feeling better Receiving physical therapy Heart rate is better, continue on current medications and monitor GENOVEVA SOLER Mar 23, 2022 08:38 DANITZA HALL MD Mar 23, 2022 09:58
[2022-03-23] MEDS: polyethylene glycoL POWDER 17 GM (MIRALAX) PACK PO SCH ×2 (08:44→19:08)
--- NOTE | 2022-03-23 10:53 | Physical Therapy Daily Note ---
PT Daily Note-Current Subjective Patient sitting in chair upon PT arrival, agreeable to treatment. Rates pain currently at 0/10 Pain Section J - Health Conditions 1. Rarely or not at all 2. Occasionally 3. Frequently 4. Almost constantly 8. Unable to answer Pain Effect on Sleep: 1 Pain Interference with Therapy: 1 Pain Interference w/Day-to-Day: 1 Mental Status Patient Orientation: Person, Place Transfers SCALE: Activities may be completed with or without assistive devices. 8-Oupyzlelpf-ljbmflf completes the activity by him/herself with no assistance from a helper. 5-Set-up or Clean-up Assistance-helper sets up or cleans up; patient completes activity. [place] assists only prior to or following the activity. 4-Supervision or Touching Assistance-helper provides verbal cues and/or touching/steadying and/or contact guard assistance as patient completes activity. Assistance may be provided throughout the activity or intermittently. 3-Partial/Moderate Assistance-helper does LESS THAN HALF the effort. [place] lifts, holds or supports trunk or limbs, but provides less than half the effort. 2-Substantial/Maximal Assistance-helper does MORE THAN HALF the effort. [place] lifts or holds trunk or limbs and provides more than half the effort. 0-Pqkzxymho-sbdpjl does ALL the effort. Patient does none of the effort to complete the activity. Or, the assistance of 2 or more helpers is required for the patient to complete the activity. If activity was not attempted, code reason: 7-Patient Refused. 9-Not Applicable-not attempted and the patient did not perform the activity before the current illness, exacerbation or injury. 10-Not Attempted due to Environmental Limitations-(lack of equipment, weather restraints, etc.). 88-Not Attempted due to Medical Conditions or Safety Concerns. Sit to Stand (QC): 3 Chair/Oup-rf-Npuux Xfer(QC): 3 Weight Bearing Right Lower Extremity: Right Full Weight Bearing Left Lower Extremity: Left Full Weight Bearing Gait Training Does the Patient Walk?: Yes Distance: 100, 100, 200 feet Walk 10 feet (QC): 4 Walk 50 ft with 2 Turns(QC): 4 Walk 150 ft (QC): 3 Gait Persons Needed: 1 Gait Assistive Device: FWW Wheelchair Training Does the Pt Use a Wheelchair?: Yes Wheel 50 ft with 2 turns (QC): 4 Type of Wheelchair: Manual Exercises Supine Ex: Ankle pumps, Quad Set, Glut sets Supine Reps: 20 Seated Therapy Exercises: Long arc quads, Hip flexion, Hamstring Curls, Hip abd/add Seated Reps: 20 Treatments Patient performs dynamic standing balance activity of ladder toss Assessment Current Status: Fair Progress Patient tolerated treatment well. Demonstrates increased gait tolerance, however unsteady at times. Patient performs LE therapeutic exercise as listed above. Patient ambulates 100, 100, 200 feet with FWW, with min A and verbal cues for safety, progression, balance and use of the FWW. Patient requires 3 sitting rest breaks during gait, and each time sitting he requires verbal and tactile cues for sitting appropriately. Patient performs Nu Step,k level 4 x 10 minutes with UE/LEs. Patient performs standing dynamic activity of ladder toss with use of each UE. Requires min A for balance and verbal cues on proper performance. Patient in chair post treatment with all needs met, nursing notified, call light in reach and chair alarm activated. PT Share Dairy Farmer Goals Care Home Goals PT Care Home Goals Time Frame: Apr 18, 2022 Roll Left & Right (QC): 6 Sit to Lying (QC): 6 Lying-Sitting on Side/Bed(QC): 6 Sit to Stand (QC): 4 Chair/Grh-sx-Cesph Xfer(QC): 4 Toilet Transfer (QC): 4 Car Transfer (QC): 6 Does the Patient Walk: Yes Walk 10 feet (QC): 5 Walk 50ft with 2 Turns (QC): 5 Walk 150 ft (QC): 5 Walking 10ft on Uneven Surface: 5 1 Step (curb) (QC): 4 4 Steps (QC): 4 12 Steps (QC): 4 Picking up an Object (QC): 4 Does the Pt use WC or Scooter?: Yes Wheel 50 feet with 2 turns (QC: 4 Type: Manual Wheel 150 feet: 4 Type: Manual PT Plan Treatment/Plan Treatment Plan: Continue Plan of Care Treatment Plan: Bed Mobility, Concurrent Therapy, Education, Functional Activity Inocencio, Functional Strength, Group Therapy, Gait, Safety, Therapeutic Exercise, Transfers Treatment Duration: Apr 18, 2022 Frequency: At least 5 of 7 days/Wk (IRF) Estimated Hrs Per Day: 1.5 hours per day Patient and/or Family Agrees t: Yes Safety Risks/Education Patient Education: Gait Training, Transfer Techniques, W/C Management Teaching Recipient: Patient Teaching Methods: Demonstration, Discussion Response to Teaching: Reinforcement Needed Time/GCodes Time In: 900 Time Out: 1000 Total Billed Treatment Time: 60 Total Billed Treatment Visit, Gait (20), Ex (25), FA (15) MEGHANA MORA PT Mar 23, 2022 10:53
--- NOTE | 2022-03-23 13:07 | Occupational Ther Daily Note ---
OT Current Status-Daily Note Subjective Pt alert, sitting in recliner. Pt agrees to therapy. No c/o pain. Mental Status/Objective Patient Orientation: Person, Confused, Time Attachments: IV ADL-Treatment Pt agrees to shower. Pt ambulates with CGA using FWW to bathroom. Mod verbal cues to transfer into shower safely. Verbal cues to remain sitting during shower for safety. Pt required verbal cues for reminders what had already been washed and what needed to continue to be washed. Set up for upper body dressing. Set up for socks/shoes, donning/doffing. Verbal cues and positioning clothing to complete lower body dressing, CGA. Sitting at sink to complete oral care, independently. Pt requires increased time and minimal verbage while giving cues for sequencing. Pt continues to work on sequencing a safe transfer to chair. After therapy, pt sitting in recliner with call light/phone in reach. All needs met in room. Safety measures in place. Therapy Code Descriptions/Definitions Functional [place] Measure: 0=Not Assessed/NA 4=Minimal Assistance 1=Total Assistance 5=Supervision or Setup 2=Maximal Assistance 6=Modified [place] 3=Moderate Assistance 7=Complete IndependenceSCALE: Activities may be completed with or without assistive devices. 3-Lhwwabcjad-nuvjnak completes the activity by him/herself with no assistance from a helper. 5-Set-up or Clean-up Assistance-helper sets up or cleans up; patient completes activity. [place] assists only prior to or following the activity. 4-Supervision or Touching Assistance-helper provides verbal cues and/or touching/steadying and/or contact guard assistance as patient completes activity. Assistance may be provided throughout the activity or intermittently. 3-Partial/Moderate Assistance-helper does LESS THAN HALF the effort. [place] lifts, holds or supports trunk or limbs, but provides less than half the effort. 2-Substantial/Maximal Assistance-helper does MORE THAN HALF the effort. [place] lifts or holds trunk or limbs and provides more than half the effort. 7-Acjitoawd-nlqjln does ALL the effort. Patient does none of the effort to complete the activity. Or, the assistance of 2 or more helpers is required for the patient to complete the activity. If activity was not attempted, code reason: 7-Patient Refused. 9-Not Applicable-not attempted and the patient did not perform the activity before the current illness, exacerbation or injury. 10-Not Attempted due to Environmental Limitations-(lack of equipment, weather restraints, etc.). 88-Not Attempted due to Medical Conditions or Safety Concerns. Oral Hygiene (QC): 6 Shower/Bathe Self (QC): 4 Upper Body Dressing (QC): 5 Lower Body Dressing (QC): 4 On/Off Footwear: 5 OT Short Term Goals Short Term Goals Time Frame: Mar 27, 2022 Upper body dressin Lower body dressin Putting on/taking off footwear: 5 OT Intermediate Goals Scale Manager Goals Time Frame: Apr 10, 2022 Acute change in mental status: 1 Inattention: 1 Disorganized thinkin Altered level of consciousness: 0 Eating (QC): 6 Oral Hygiene (QC): 6 Toileting Hygiene (QC): 6 Shower/Bathe Self (QC): 6 Upper Body Dressing (QC): 6 Lower Body Dressing (QC): 6 On/Off Footwear (QC): 6 Additional Goals: 1-Demonstrate ADL Tasks, 2-Verbalize Understanding, 3- ImproveStrength/Inocencio 1=Demonstrate adherence to instructed precautions during ADL tasks. 2=Patient will verbalize/demonstrate understanding of assistive devices/modifications for ADL. 3=Patient will improve strength/tolerance for activity to enable patient to perform ADL's. OT Education/Plan Problem List/Assessment Assessment: Decreased Activ Tolerance, Decreased Safety Aware, Impaired Cognition, Impaired Coordination, Impaired Funct Balance, Impaired Self-Care Skills Discharge Recommendations Plan/Recommendations: Continue POC Treatment Plan/Plan of Care Patient would benefit from OT for education, treatment and training to promote independence in ADL's, mobility, safety and/or upper extremity function for ADL's. Plan of Care: ADL Retraining, Functional Mobility, Group Exercise/Act as Ind, UE Funct Exercise/Act Treatment Duration: Apr 10, 2022 Frequency: At least 5 of 7 days/Wk (IRF) Estimated Hrs Per Day: 1.5 hours per day Agreement: Yes Rehab Potential: Fair Time/GCodes Start Time: 10:30 Stop Time: 11:45 Total Time Billed (hr/min): 75 Billed Treatment Time 1 visit-ADL 5 (75 min) ELSA REYES Mar 23, 2022 13:07
--- NOTE | 2022-03-23 13:53 | Physical Therapy Daily Note ---
PT Daily Note-Current Subjective Patient asleep in the recliner upon PT arrival, agreeable to treatment. Patient currently rates pain at 0/10. Pain Section J - Health Conditions 1. Rarely or not at all 2. Occasionally 3. Frequently 4. Almost constantly 8. Unable to answer Pain Effect on Sleep: 1 Pain Interference with Therapy: 1 Pain Interference w/Day-to-Day: 1 Mental Status Patient Orientation: Person Transfers SCALE: Activities may be completed with or without assistive devices. 8-Imqbjoqwnn-glrrxfe completes the activity by him/herself with no assistance from a helper. 5-Set-up or Clean-up Assistance-helper sets up or cleans up; patient completes activity. [place] assists only prior to or following the activity. 4-Supervision or Touching Assistance-helper provides verbal cues and/or touching/steadying and/or contact guard assistance as patient completes activity. Assistance may be provided throughout the activity or intermittently. 3-Partial/Moderate Assistance-helper does LESS THAN HALF the effort. [place] lifts, holds or supports trunk or limbs, but provides less than half the effort. 2-Substantial/Maximal Assistance-helper does MORE THAN HALF the effort. [place] lifts or holds trunk or limbs and provides more than half the effort. 9-Mcbolsdcj-uigize does ALL the effort. Patient does none of the effort to com plete the activity. Or, the assistance of 2 or more helpers is required for the patient to complete the activity. If activity was not attempted, code reason: 7-Patient Refused. 9-Not Applicable-not attempted and the patient did not perform the activity before the current illness, exacerbation or injury. 10-Not Attempted due to Environmental Limitations-(lack of equipment, weather restraints, etc.). 88-Not Attempted due to Medical Conditions or Safety Concerns. Roll Left & Right (QC): 4 Sit to Lying (QC): 4 Lying to Sitting/Side of Bed(Q: 4 Sit to Stand (QC): 3 Chair/Cro-xp-Yhsdm Xfer(QC): 3 Weight Bearing Right Lower Extremity: Right Full Weight Bearing Left Lower Extremity: Left Full Weight Bearing Gait Training Does the Patient Walk?: Yes Distance: 150, 150 feet Walk 10 feet (QC): 4 Walk 50 ft with 2 Turns(QC): 3 Walk 150 ft (QC): 3 Gait Persons Needed: 1 Gait Assistive Device: FWW Assessment Current Status: Fair Progress Patient tolerated treatment fair. Demonstrates declined tolerance to gait this visit with decreased endurance. Patient ambulates 150 feet, 150 feet with FWW, with min A and verbal cues for safety, progression, balance and use of the FWW. Patient requires 1 sitting rest break during gait, and each time sitting he requires verbal and tactile cues for sitting appropriately. Patient performs Nu Step,k level 4 x 10 minutes with UE/LEs. Patient in bed post treatment with all needs met, nursing notified, call light in reach and bed alarm activated. PT Fpc Goals Venture Capital Analyst Goals PT Fpc Goals Time Frame: Apr 18, 2022 Roll Left & Right (QC): 6 Sit to Lying (QC): 6 Lying-Sitting on Side/Bed(QC): 6 Sit to Stand (QC): 4 Chair/Wka-sq-Nauel Xfer(QC): 4 Toilet Transfer (QC): 4 Car Transfer (QC): 6 Does the Patient Walk: Yes Walk 10 feet (QC): 5 Walk 50ft with 2 Turns (QC): 5 Walk 150 ft (QC): 5 Walking 10ft on Uneven Surface: 5 1 Step (curb) (QC): 4 4 Steps (QC): 4 12 Steps (QC): 4 Picking up an Object (QC): 4 Does the Pt use WC or Scooter?: Yes Wheel 50 feet with 2 turns (QC: 4 Type: Manual Wheel 150 feet: 4 Type: Manual PT Plan Treatment/Plan Treatment Plan: Continue Plan of Care Treatment Plan: Bed Mobility, Concurrent Therapy, Education, Functional Activity Inocencio, Functional Strength, Group Therapy, Gait, Safety, Therapeutic Exercise, Transfers Treatment Duration: Apr 18, 2022 Frequency: At least 5 of 7 days/Wk (IRF) Estimated Hrs Per Day: 1.5 hours per day Patient and/or Family Agrees t: Yes Safety Risks/Education Patient Education: Gait Training, Transfer Techniques Teaching Recipient: Patient Teaching Methods: Demonstration, Discussion Response to Teaching: Verbalize Understanding, Return Demonstration Time/GCodes Time In: 1320 Time Out: 1335 Total Billed Treatment Time: 15 Total Billed Treatment Visit, Gait MEGHANA MORA PT Mar 23, 2022 13:53
--- NOTE | 2022-03-23 14:20 | Speech Therapy Daily Note ---
Speech Daily Progress Note Subjective Date Seen by Provider: Mar 23, 2022 Time Seen by Provider: 13:45 The patient was lying in bed, sleeping upon entrance to his room by the clinician. The patient woke easily and was agreeable to cognitive linguistic treatment. Objective The clinician visited with the occupational therapist regarding safe sequencing for being seated. The OT stated the patient has been following three simple steps which she shared with the clinician. The clinician completed recall of the safety precautions with the patient. Per patient, "Oh yes, we had a lesson on that today." The patient does recall visiting with OT regarding the safety procedure, however, was unable to state the sequence to the clinician. The patient provided the sequence to the patient. Following five minutes, the patient was unable to recall the information. Maximum verbal cueing remains necessary for task sequencing and safety. Assessment Assessment Current Status: Fair Progress Treatment Plan Continue Plan of Care Speech Short Term Goals Short Term Goals Short Term Goals 1. The patient will demonstrate improved safety awareness with mild clinician verbal prompting and visual cues. Time Frame-STG: One Week. Speech Senior Sales Director Goals Halfway Goals 1. The patient will demonstrate improved cognitive linguistic skills for safe discharge to the least restrictive environment. Time Frame: Two Weeks. Speech-Plan Treatment Plan Speech Therapy Treatment Plan: Continue Plan of Care Treatment Duration: Mar 18, 2022 Frequency: Modified Program (IRF) Estimated Hrs Per Day: Other Rehab Potential: Fair Safety Risks/Education Teaching Recipient: Patient Teaching Methods: Demonstration, Discussion Response to Teaching: Verbalize Understanding, Reinforcement Needed Education Topics Provided: Safety Precautions Time Speech Therapy Time In: 13:45 Speech Therapy Time Out: 14:15 Total Billed Time: 30 Billed Treatment Time IESHA Pollard [facility] Mar 23, 2022 14:20
[2022-03-23] MEDS: warFARin 5 MG (COUMADIN) TAB PO SCH (17:41)
[2022-03-23] MEDS: TAMSULOSIN 0.4 MG (FLOMAX) CAP PO SCH (17:41)
[2022-03-23 19:51] VITALS: BP 166/74
[2022-03-23] MEDS: ALLOPURINOL 100 MG (ZYLOPRIM) TAB PO SCH (21:20)
[2022-03-23] MEDS: ALPRAZolam 0.25 MG (XANAX) TAB PO PRN (21:20)
[2022-03-23] MEDS: QUEtiapine 25 MG (SEROquel) TAB IMMEDIATE RELEASE PO SCH (21:20)
[2022-03-24] MEDS: MEROPENEM 500 MG/NS 100 ML IVPB IV SCH ×8 (03:00→20:09)
--- NOTE | 2022-03-24 05:59 | PM&R Progress Note ---
Subjective HPI/CC On Admission Date Seen by Provider: Mar 24, 2022 Time Seen by Provider: 08:30 Subjective/Events-last exam 03/24/2022: NO major issues Family training today DC tomorrow Had a near fall when walking with therapy Completed abx 03/23/2022: No major changes Tolerating the Meropenem Ambulating well just slow 03/22/2022: No major events Bowels are moving Tolerating IV antibiotics Patient is baseline 03/21/2022: No major issues Extended Meropenem to 7 days total No falls No pain Walks very slowly 03/20/2022: No major issues BM finally after multiple meds No falls Confusion is baseline now 03/19/2022: Pt is doing better Needs to have a bowel movement so I added laxatives Otherwise he is doing really well Encephalopathy is clearing 03/18/2022: Patient doing pretty well Sleeps a lot Moves around pretty slowly Reviewed meds and labs Appreciate Dr. Burnette INR will be managed by Dr. Burnette and pharmacy Tolerating meropenem Review of Systems General: Fatigue, Malaise Objective Exam Vital Signs Vital Signs Date Time Temp Pulse Resp B/P (MAP) Pulse Ox O2 Delivery O2 Flow Rate FiO2 03/24/22 20:10 95 Room Air 03/24/22 19:35 36.2 79 16 123/67 (85) Capillary Refill : General Appearance: No Apparent Distress, WD/WN, Chronically ill HEENT: PERRL/EOMI, Normal ENT Inspection, Pharynx Normal Neck: Full Range of Motion, Normal Inspection, Non Tender, Supple, Carotid Bruit Respiratory: Chest Non Tender, Lungs Clear, Normal Breath Sounds, No Accessory Muscle Use, No Respiratory Distress Cardiovascular: Regular Rate, Rhythm, No Edema, No Gallop, No JVD, No Murmur, Normal Peripheral Pulses Gastrointestinal: Normal Bowel Sounds, No Organomegaly, No Pulsatile Mass, Non Tender, Soft Back: Normal Inspection, No CVA Tenderness, No Vertebral Tenderness Extremity: Normal Capillary Refill, Normal Inspection, Normal Range of Motion, Non Tender, No Calf Tenderness, No Pedal Edema Neurologic/Psychiatric: Alert, Oriented x3, 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 FIM Transfers Therapy Code Descriptions/Definitions Functional [place] Measure: 0=Not Assessed/NA 4=Minimal Assistance 1=Total Assistance 5=Supervision or Setup 2=Maximal Assistance 6=Modified [place] 3=Moderate Assistance 7=Complete IndependenceSCALE: Activities may be completed with or without assistive devices. 4-Xglcirfifj-zfenzny completes the activity by him/herself with no assistance from a helper. 5-Set-up or Clean-up Assistance-helper sets up or cleans up; patient completes activity. [place] assists only prior to or following the activity. 4-Supervision or Touching Assistance-helper provides verbal cues and/or touching/steadying and/or contact guard assistance as patient completes activity. Assistance may be provided throughout the activity or intermittently. 3-Partial/Moderate Assistance-helper does LESS THAN HALF the effort. [place] lifts, holds or supports trunk or limbs, but provides less than half the effort. 2-Substantial/Maximal Assistance-helper does MORE THAN HALF the effort. [place] lifts or holds trunk or limbs and provides more than half the effort. 4-Ijymvomfa-zbnzze does ALL the effort. Patient does none of the effort to complete the activity. Or, the assistance of 2 or more helpers is required for the patient to complete the activity. If activity was not attempted, code reason: 7-Patient Refused. 9-Not Applicable-not attempted and the patient did not perform the activity before the current illness, exacerbation or injury. 10-Not Attempted due to Environmental Limitations-(lack of equipment, weather restraints, etc.). 88-Not Attempted due to Medical Conditions or Safety Concerns. Roll Left to Right (QC): 4 Sit to Lying (QC): 4 Sit to Stand (QC): 3 Chair/Dzm-yl-Ylfli Xfer(QC): 3 Car Transfer (QC): 4 Gait Training Does the Patient Walk?: Yes Distance: 150, 150 feet Walk 10 feet (QC): 4 Walk 50 ft with 2 Turns(QC): 3 Walk 150 ft (QC): 3 Walking 10ft/uneven surface-QC: 3 Gait Persons Needed: 1 Gait Assistive Device: FWW Wheelchair Training Does the Pt Use a Wheelchair?: Yes Wheel 50 ft with 2 turns (QC): 4 Wheel 150 ft (QC): 88 Type of Wheelchair: Manual Stair Training #of Steps: 8 1 Step (curb) (QC): 3 4 Steps (QC): 3 12 Steps (QC): 88 (not safe to perform due to weakness) Balance Picking up an Object (QC): 88 ADL-Treatment Eating (QC): 5 (set up with containers and cutting food. ) Oral Hygiene (QC): 6 Shower/Bathe Self (QC): 4 Upper Body Dressing (QC): 5 Lower Body Dressing (QC): 4 On/Off Footwear (QC): 5 Toileting Hygiene (QC): 3 (Min A standing balance, moderate cues for sequenci ng.) Toilet Transfer (QC): 3 (min A due to retropulsion in stand.) Assessment/Plan Assessment and Plan Assess & Plan/Chief Complaint Assessment: 1. Urinary Tract infection: History of ESBL, and positive UA per home nurse of Josie st[facility] - Start Meropenem 500mg IV q6 hours 2. Acute encephalopathy on top of dementia Patient more acute confused per patient's family. AO x2 on admission (person and place) - Cont treatment of UTI 3. Debility - PT/OT/AERIAL GUNNER ordered and following 4. Hx of Atrial fibrillation - Cont Coumadin 5mg daily and then 10mg qFriday. - Cont Amiodarone 200 mg BID 5. Hx of CAD s/p CABG - Cont Atorvastatin 100mg daily - Cont Metoprolol succinate 25mg daily - Cont Lasix 20mg PO daily 6. BPH - Cont Finasteride 5mg daily - Cont Tamsulosin 0.4mg daily Dispo: Cont admission to inpatient rehab CODE: Full Code 03/18/2022: Supportive care Meropenem 03/19/2022: Monitor closely BM regimen 03/20/2022: Monitor closely Fall risk 03/21/2022: Meropenem 7 days total 03/22/2022: Supportive care Antibiotics maintained 03/23/2022: Monitor closely 03/24/2022: Monitor for falls (1) Debility (2) Anticoagulated on warfarin (3) Atrial flutter Status: Acute (4) BPH (benign prostatic hyperplasia) Status: Acute (5) HLD (hyperlipidemia) Status: Chronic (6) HTN (hypertension) Status: Chronic (7) Dementia Status: Chronic (8) Urinary tract infection Status: Acute SANDRA ORELLANA DO Mar 24, 2022 05:59
[2022-03-24] MEDS: KCL 10 MEQ TAB (MICRO K) PO SCH (06:35)
--- NOTE | 2022-03-24 07:29 | Occupational Ther Daily Note ---
OT Current Status-Daily Note Subjective Pt alert, lying in bed. Pt agrees to therapy. No c/o pain at this time. Pt is having difficulty fully waking then requires extra time and cues with mobility, transfers and ADL sequencing. Mental Status/Objective Patient Orientation: Person, Confused Attachments: IV ADL-Treatment Supine to EOB independent. Set up for donning shoes. Ambulates to bathroom u sing FWW with verbal cues for safe usage. Verbal cues to approach and transfer onto toilet using FWW. Verbal cues and positioning clothing to manipulate clothing for toileting, pt completes hygiene by self in sitting. Verbal cues to approach and transfer into recliner using FWW. Pt able to set up own meal and use regular utensils to eat. Sitting at sink, pt able to complete oral care and grooming independently. After session, pt reclining in chair with call light/phone in reach. Safety measures in place. All needs met in room. Therapy Code Descriptions/Definitions Functional [place] Measure: 0=Not Assessed/NA 4=Minimal Assistance 1=Total Assistance 5=Supervision or Setup 2=Maximal Assistance 6=Modified [place] 3=Moderate Assistance 7=Complete IndependenceSCALE: Activities may be completed with or without assistive devices. 0-Calxzobykf-zwmedci completes the activity by him/herself with no assistance from a helper. 5-Set-up or Clean-up Assistance-helper sets up or cleans up; patient completes activity. White assists only prior to or following the activity. 4-Supervision or Touching Assistance-helper provides verbal cues and/or touching/steadying and/or contact guard assistance as patient completes activity. Assistance may be provided throughout the activity or intermittently. 3-Partial/Moderate Assistance-helper does LESS THAN HALF the effort. White lifts, holds or supports trunk or limbs, but provides less than half the effort. 2-Substantial/Maximal Assistance-helper does MORE THAN HALF the effort. White lifts or holds trunk or limbs and provides more than half the effort. 7-Mxouzwfmm-bolwht does ALL the effort. Patient does none of the effort to complete the activity. Or, the assistance of 2 or more helpers is required for the patient to complete the activity. If activity was not attempted, code reason: 7-Patient Refused. 9-Not Applicable-not attempted and the patient did not perform the activity before the current illness, exacerbation or injury. 10-Not Attempted due to Environmental Limitations-(lack of equipment, weather restraints, etc.). 88-Not Attempted due to Medical Conditions or Safety Concerns. Eating (QC): 6 Toileting Hygiene (QC): 4 Toilet Transfer (QC): 4 BIMS/CAM completed for discharge QCs OT Short Term Goals Short Term Goals Time Frame: Mar 27, 2022 Upper body dressin Lower body dressin Putting on/taking off footwear: 5 OT Custodial Goals Custodial Goals Time Frame: Apr 10, 2022 Acute change in mental status: 1 Inattention: 1 Disorganized thinkin Altered level of consciousness: 0 Eating (QC): 6 (met) Oral Hygiene (QC): 6 (met) Toileting Hygiene (QC): 6 (not met-CGA) Shower/Bathe Self (QC): 6 (not met-CGA in standing) Upper Body Dressing (QC): 6 (not met-set up) Lower Body Dressing (QC): 6 (not met-CGA) On/Off Footwear (QC): 6 (not met-set up) Additional Goals: 1-Demonstrate ADL Tasks, 2-Verbalize Understanding, 3- ImproveStrength/Inocencio 1=Demonstrate adherence to instructed precautions during ADL tasks. 2=Patient will verbalize/demonstrate understanding of assistive devices/modifications for ADL. 3=Patient will improve strength/tolerance for activity to enable patient to perform ADL's. OT Education/Plan Problem List/Assessment Assessment: Decreased Activ Tolerance, Decreased Safety Aware, Impaired Cognition, Impaired Self-Care Skills Discharge Recommendations Plan/Recommendations: Continue POC Treatment Plan/Plan of Care Patient would benefit from OT for education, treatment and training to promote independence in ADL's, mobility, safety and/or upper extremity function for ADL's. Plan of Care: ADL Retraining, Functional Mobility, Group Exercise/Act as Ind, UE Funct Exercise/Act Treatment Duration: Apr 10, 2022 Frequency: At least 5 of 7 days/Wk (IRF) Estimated Hrs Per Day: 1.5 hours per day Agreement: Yes Rehab Potential: Fair Time/GCodes Start Time: 07:00 Stop Time: 08:15 Total Time Billed (hr/min): 75 Billed Treatment Time 1 visit-ADL 5 (75 min) ELSA REYES Mar 24, 2022 07:29
[2022-03-24 07:44] VITALS: BP 175/80
--- NOTE | 2022-03-24 08:30 | Cardiology Progress Note ---
Subjective Date Seen by Provider: Mar 24, 2022 Time Seen by Provider: 08:26 Subjective/Events-last exam Patient sitting up in chair, no new complaints. Objective-Cardiology Exam Last Set of Vital Signs Vital Signs 03/24/22 07:44 Temp 36.0 Pulse 88 Resp 20 B/P (MAP) 175/80 (111) Pulse Ox 94 O2 Delivery Room Air I&O Intake and Output 03/24/22 00:00 Intake Total 100 ml Balance 100 ml Intake IV Total 100 ml General: Alert, Oriented X3 HEENT: Atraumatic Neck: Supple Lungs: Clear to Auscultation, Normal Air Movement Heart: Regular Rate, Normal S1, Normal S2 Abdomen: Soft Extremities: Other (Peripheral edema) Skin: No Rashes, No Significant Lesion Neuro: Normal Speech Psych/Mental Status: Mood NL A/P-Cardiology Admission Diagnosis UTI CAD PAF hx TAVR Assessment/Plan Generalized debility/weakness, continue PT/OT Paroxysmal atrial fib/flutter, history of cardioversion September 08, 2021. Unable to tolerate diltiazem due to hypotension and bradycardia Beta-blockers were discontinued Amiodarone was decreased to 200 mg once daily Heart rate is better, continue to monitor. 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 [id number] score of 6, yearly risk of stroke without oral anticoagulation is 9.8%. Maintained on Coumadin. Coronary artery disease History of CABG [place] [address] Bradshaw, has been followed by Dr. White and Dr. Samuels after that Cardiac catheterization done July [address] Samuels revealing severe multivessel [place] coronary artery disease. 3 out of 4 patent bypass grafts with the RATLIFF being atretic. 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 Andrew, had complex and prolonged recovery in [facility] secondary to UTI, sepsis, questionable anoxic brain injury Most recent 2D Echo done September 2019 showed LV cavity size is increased and wall thickness is mildly to moderatley increased LV systolic function is mildy decreased with EF 40-45%, diastolic dysfunction. RV systolic function is reduce, LA is mildly dilated measuring 4.8 cm, MV has moderately calcified annulus-sclerosis with mild stenosis. mod TR, PA 35-40 mmHg Hypertension, elevated, intolerant to beta blockers d/t bradycardia. 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 Supervisory-Addendum Brief Supervisory Addendum Participated in pt care: history, MDM, physical Personally performed: exam, history, MDM Care discussed with: ENOCH Results interpretation: Verified all documentation Notes: Patient was seen and evaluated with Genoveva, examination performed, management plan was discussed, agree with the current scribed note, I made few changes to the note using Italic font Patient was seen at bedside, laying down comfortably, feeling better Blood pressure is elevated today, will add losartan 50 mg daily Continue to monitor blood pressure and continue with rehab GENOVEVA SOLER Mar 24, 2022 08:30 DANITZA HALL MD Mar 24, 2022 09:03
--- NOTE | 2022-03-24 08:38 | IRF PAI BIMS ---
BIMS CAM BIMS Expression of Ideas and Wants: Without Difficulty Understanding Verbal Content: Understands Brief Interview/Mental Status: Yes IRF ROSSY BIMS: IRF ROSSY BIMS Response (Comments) Value Repitition of Three Words Three 3 Recalls Socks Yes, After Cueing (Wear) 1 Recalls Blue Yes, No Cue Required 2 Recalls Bed Yes, No Cue Required 2 Year Missed by 1 Year 2 Month Missed by 6 Days/1 Month 1 Day Incorrect or No Answer 0 Total 11 Patient Normally Able to Recal: Current Session Should Staff Asses. Mental St.: No Memory/Recall Ability: Current Season CAM Mental Status Change/Baseline: 0 Inattention: 0 Disorganized thinkin Altered level of consciousness: 0 ELSA REYES Mar 24, 2022 08:38
[2022-03-24] MEDS: AMIODARONE 200 MG (CORDARONE) TAB PO SCH (08:52)
[2022-03-24] MEDS: FUROSEMIDE 20 MG (LASIX) TAB PO SCH (08:52)
[2022-03-24] MEDS: SENNA W/DOCUSATE (SENOKOT S) TABLET PO SCH ×2 (08:52→20:10)
[2022-03-24] MEDS: AtorvaSTATin TABLET 10 MG TABLET PO SCH (08:52)
[2022-03-24] MEDS: buPROPion SR 150 MG (WELLBUTRIN SR) TAB PO SCH (08:52)
[2022-03-24] MEDS: PANTOPRAZOLE 40 MG (PROTONIX) TAB PO SCH (08:52)
[2022-03-24] MEDS: PARoxetine 20 MG (PAXIL) TAB PO SCH (08:52)
[2022-03-24] MEDS: FINASTERIDE (PROSCAR) 5 MG TAB PO SCH (08:53)
[2022-03-24] MEDS: polyethylene glycoL POWDER 17 GM (MIRALAX) PACK PO SCH ×2 (08:53→20:10)
[2022-03-24 09:02] VITALS: BP 118/57
[2022-03-24 09:06] VITALS: BP 123/59
--- NOTE | 2022-03-24 10:25 | Speech Therapy Daily Note ---
Speech Daily Progress Note Subjective Date Seen by Provider: Mar 24, 2022 Time Seen by Provider: 09:30 The patient was seated upright in his recliner, awake and alert, upon entrance to his room by the clinician. The patient woke easily and was agreeable to cognitive linguistic treatment. Objective The clinician completed recall of the safety precautions for being seated and using his walker with the patient. The patient did not recall his review session with the occupational therapy on this date. The clinician provided the safe steps for being seated with the patient. The patient stated, "Yes, I know you need to grab the chair." The clinician additionally demonstrated the steps to the patient. The patient verbally repeated the instructions to the clinician with moderate clinician verbal cueing. Following five minutes, the patient was unable to recall the information. Maximum verbal cueing remains necessary for task sequencing and safety. Assessment Assessment Current Status: Fair Progress Treatment Plan Continue Plan of Care Speech Short Term Goals Short Term Goals Short Term Goals 1. The patient will demonstrate improved safety awareness with mild clinician verbal prompting and visual cues. Time Frame-STG: One Week. Speech Group Home Goals Oyster Sorter Goals 1. The patient will demonstrate improved cognitive linguistic skills for safe discharge to the least restrictive environment. Time Frame: Two Weeks. Speech-Plan Treatment Plan Speech Therapy Treatment Plan: Continue Plan of Care Treatment Duration: Mar 18, 2022 Frequency: Modified Program (IRF) Estimated Hrs Per Day: Other Rehab Potential: Fair Safety Risks/Education Teaching Recipient: Patient Teaching Methods: Demonstration, Discussion Response to Teaching: Reinforcement Needed Education Topics Provided: Safety Precautions Time Speech Therapy Time In: 09:00 Speech Therapy Time Out: 09:30 Total Billed Time: 30 Billed Treatment Time 1IESHA ELIZABETH ST Mar 24, 2022 10:25
--- NOTE | 2022-03-24 10:27 | Therapy Team Discharge Summary ---
Therapy Discharge Summary Discharge Recommendations Date of Discharge Physical Therapy Roll Left to Right (QC): 4 Sit to Lying (QC): 4 Lying to Sitting/Side of Bed(Q: 4 Sit to Stand (QC): 3 Chair/Fpy-tu-Ymshl Xfer(QC): 3 Toilet Transfer (QC): 3 Car Transfer (QC): 4 Does the Patient Walk: Yes Mode of Locomotion: Both Anticipated Mode of Locomotion: Both Walk 10 feet (QC): 4 Walk 50 ft with 2 Turns(QC): 3 Walk 150 ft (QC): 3 Walking 10ft on uneven surface: 3 Distance: 150' x 3 Gait Assistive Device: FWW Does the Pt Use a Wheelchair: Yes Wheel 50 ft with 2 turns (QC): 4 Wheel 150 ft (QC): 88 Type of Wheelchair: Manual #of Steps: 8 1 Step (curb) (QC): 3 4 Steps (QC): 3 12 Steps (QC): 88 (not safe to perform due to weakness) Balance Sitting Static: Normal Balance Sitting Dynamic: Normal Balance-Standing Static: Fair Picking up an Object (QC): 88 Occupational Therapy Decreased Activ Tolerance, Decreased Safety Aware, Impaired Cognition, Impaired Self-Care Skills Eating (QC): 6 Oral Hygiene (QC): 6 Shower/Bathe Self (QC): 4 Upper Body Dressing (QC): 5 Lower Body Dressing (QC): 4 On/Off Footwear (QC): 5 Toileting Hygiene (QC): 4 Speech-Language Pathology The patient continues to display cognitive deficits, most notably in the area of memory. Upon arrival, the patient displayed increased confusion from his baseline memory deficits which has appeared to clear. Progression was made towards cognitive goal, however, supervision following discharge remains appropriate for the patient's safety. PT Travel Ot Goals Intermediate Goals PT Travel Ot Goals Time Frame: Apr 18, 2022 Scoring Section J - Health Conditions 1. Rarely or not at all 2. Occasionally 3. Frequently 4. Almost constantly 8. Unable to answer Pain Effect on Sleep: 8 Pain Interference with Therapy: 8 Pain Interference w/Day-to-Day: 8 Roll Left to Right (QC): 6 Sit to Lying (QC): 6 Lying-Sitting on Side/Bed(QC): 6 Sit to Stand (QC): 4 Chair/Whn-nz-Zfibj Xfer(QC): 4 Car Transfer (QC): 6 Does the Patient Walk: Yes Walk 10 feet (QC): 5 Walk 10ft-Uneven Surface(QC): 5 Walk 50ft with 2 Turns (QC): 5 Walk 150 ft (QC): 5 Gait Assistive Device: FWW Does the Pt use WC or Scooter?: Yes Wheel 50 feet with 2 turns (QC: 4 # of Steps: 12 1 Step (curb) (QC): 4 4 Steps (QC): 4 12 Steps (QC): 4 Picking up an Object (QC): 4 OT Travel Ot Goals Intermediate Goals Time Frame: Apr 10, 2022 Acute change in mental status: 0 Inattention: 0 Disorganized thinkin Altered level of consciousness: 0 Eating (QC): 6 (met) Oral Hygiene (QC): 6 (met) Toileting Hygiene (QC): 6 (not met-CGA) Shower/Bathe Self (QC): 6 (not met-CGA in standing) Upper Body Dressing (QC): 6 (not met-set up) Lower Body Dressing (QC): 6 (not met-CGA) On/Off Footwear (QC): 6 (not met-set up) Additional Goals: 1-Demonstrate ADL Tasks, 2-Verbalize Understanding, 3- ImproveStrength/Inocencio 1=Demonstrate adherence to instructed precautions during ADL tasks. 2=Patient will verbalize/demonstrate understanding of assistive devices/modifications for ADL. 3=Patient will improve strength/tolerance for activity to enable patient to perform ADL's. Speech Travel Ot Goals Travel Ot Goals 1. The patient will demonstrate improved cognitive linguistic skills for safe discharge to the least restrictive environment. MET: The patient continues to display cognitive deficits, most notably in the area of memory. Upon arrival, the patient displayed increased confusion from his baseline memory deficits which has appeared to clear. Progression was made towards cognitive goal, however, supervision following discharge remains appropriate for the patient's safety. Time Frame: Two Weeks. YURY SMITH Mar 24, 2022 10:26
[2022-03-24] MEDS: DOCUSATE SODIUM 100 MG (COLACE) CAP PO SCH ×2 (11:14→20:09)
[2022-03-24 11:22] VITALS: BP 132/62
[2022-03-24] MEDS: LOSARTAN 50 MG (COZAAR) TAB PO SCH (11:26)
--- NOTE | 2022-03-24 12:11 | Physical Therapy Daily Note ---
PT Daily Note-Current Subjective Pt reclined in recliner upon arrival. Pt agrees to PT. Pt's granddaughter arrives during tx and observes. Pain Location: No Pain Reported Section J - Health Conditions 1. Rarely or not at all 2. Occasionally 3. Frequently 4. Almost constantly 8. Unable to answer Pain Effect on Sleep: 1 Pain Interference with Therapy: 1 Pain Interference w/Day-to-Day: 1 Mental Status Patient Orientation: Person, Place Transfers SCALE: Activities may be completed with or without assistive devices. 0-Jqcojlssan-yukjxni completes the activity by him/herself with no assistance from a helper. 5-Set-up or Clean-up Assistance-helper sets up or cleans up; patient completes activity. [place] assists only prior to or following the activity. 4-Supervision or Touching Assistance-helper provides verbal cues and/or touching/steadying and/or contact guard assistance as patient completes activity. Assistance may be provided throughout the activity or intermittently. 3-Partial/Moderate Assistance-helper does LESS THAN HALF the effort. Shoshoni lifts, holds or supports trunk or limbs, but provides less than half the effort. 2-Substantial/Maximal Assistance-helper does MORE THAN HALF the effort. Shoshoni lifts or holds trunk or limbs and provides more than half the effort. 1-Milowfeas-uvbocb does ALL the effort. Patient does none of the effort to complete the activity. Or, the assistance of 2 or more helpers is required for the patient to complete the activity. If activity was not attempted, code reason: 7-Patient Refused. 9-Not Applicable-not attempted and the patient did not perform the activity before the current illness, exacerbation or injury. 10-Not Attempted due to Environmental Limitations-(lack of equipment, weather restraints, etc.). 88-Not Attempted due to Medical Conditions or Safety Concerns. Roll Left & Right (QC): 6 Sit to Lying (QC): 6 Lying to Sitting/Side of Bed(Q: 6 Sit to Stand (QC): 3 Chair/Vrb-hn-Rtwry Xfer(QC): 3 Toilet Transfer (QC): 3 Car Transfer (QC): 4 Weight Bearing Right Lower Extremity: Right Full Weight Bearing Left Lower Extremity: Left Full Weight Bearing Gait Training Does the Patient Walk?: Yes Distance: 150' Walk 10 feet (QC): 4 Walk 50 ft with 2 Turns(QC): 4 Walk 150 ft (QC): 4 Walking 10ft/uneven surface-QC: 4 Gait Persons Needed: 1 Gait Assistive Device: FWW Wheelchair Training Does the Pt Use a Wheelchair?: No Stair Training Stair Training: Handrails/: 2 handrails #of Steps: 8 1 Step (curb) (QC): 3 4 Steps (QC): 3 12 Steps (QC): 88 Stairs: Pattern: Step to Balance Picking up an Object (QC): 88 Exercises Supine Ex: Ankle pumps, Quad Set, Glut sets, Heel Slides, Hip abd/add Supine Reps: 10 Treatments [id number]: Pt completes QC scoring items listed above with daughter observing. RUBBER STAMP DIE INSPECTOR instructs pt & granddaughter how safety concerns and VC that is given to avoid these as well as pt fatiguing easily and needing RB. Pt returns to room to rest in recliner w/all needs met. Call light in hand. [id number]: Pt completes Supine EX at recliner then repositioned to comfort. All needs met, call light in hand. Assessment Current Status: Fair Progress Pt continues to show impulsivity and can be retropulsive at times. Pt needs VC gloria. with keeping FWW close during amb. and TF. Pt has LOB that RUBBER STAMP DIE INSPECTOR has to prevent from fall. PT Quilting Machine Operator Goals Skilled Nursing Goals PT Skilled Nursing Goals Time Frame: Apr 18, 2022 Roll Left & Right (QC): 6 Sit to Lying (QC): 6 Lying-Sitting on Side/Bed(QC): 6 Sit to Stand (QC): 4 Chair/Sgd-na-Upvss Xfer(QC): 4 Toilet Transfer (QC): 4 Car Transfer (QC): 6 Does the Patient Walk: Yes Walk 10 feet (QC): 5 Walk 50ft with 2 Turns (QC): 5 Walk 150 ft (QC): 5 Walking 10ft on Uneven Surface: 5 1 Step (curb) (QC): 4 4 Steps (QC): 4 12 Steps (QC): 4 Picking up an Object (QC): 4 Does the Pt use WC or Scooter?: Yes Wheel 50 feet with 2 turns (QC: 4 Type: Manual Wheel 150 feet: 4 Type: Manual PT Plan Problem List Problem List: Activity Tolerance, Safety Treatment/Plan Treatment Plan: Continue Plan of Care Treatment Plan: Bed Mobility, Concurrent Therapy, Education, Functional Activity Inocencio, Functional Strength, Group Therapy, Gait, Safety, Therapeutic Exercise, Transfers Treatment Duration: Apr 18, 2022 Frequency: At least 5 of 7 days/Wk (IRF) Estimated Hrs Per Day: 1.5 hours per day Patient and/or Family Agrees t: Yes Safety Risks/Education Patient Education: Gait Training, Transfer Techniques, Steps, Correct Positioning, Safety Issues Teaching Recipient: Patient, Family Teaching Methods: Demonstration, Discussion Response to Teaching: Verbalize Understanding, Reinforcement Needed Time/GCodes Time In: 1000 Time Out: 1100 Total Billed Treatment Time: 60 Total Billed Treatment [id number]: 1, FA x4 (60m) [id number]: 1, EX (15m) JAVIER COPELAND RUBBER STAMP DIE INSPECTOR Mar 24, 2022 12:11
[2022-03-24 15:52] VITALS: BP 139/70
[2022-03-24] MEDS: TAMSULOSIN 0.4 MG (FLOMAX) CAP PO SCH (17:30)
[2022-03-24] MEDS: warFARin 5 MG (COUMADIN) TAB PO SCH (17:47)
[2022-03-24 19:35] VITALS: BP 123/67
[2022-03-24] MEDS: ALLOPURINOL 100 MG (ZYLOPRIM) TAB PO SCH (20:09)
[2022-03-24] MEDS: QUEtiapine 25 MG (SEROquel) TAB IMMEDIATE RELEASE PO SCH (20:09)
[2022-03-25] MEDS ORDERED: AMIO200T65 PO (05:40)
[2022-03-25] MEDS ORDERED: LOSA50TA63 PO (05:40)
--- NOTE | 2022-03-25 05:41 | Discharge Summary ---
Diagnosis/Chief Complaint Date of Admission Mar 17, 2022 at 14:17 Date of Discharge Discharge Date: Mar 25, 2022 Discharge Diagnosis Assessment: 1. Urinary Tract infection: History of ESBL, and positive UA per home nurse of Josie stanton - Start Meropenem 500mg IV q6 hours 2. Acute encephalopathy on top of dementia Patient more acute confused per patient's family. AO x2 on admission (person and place) - Cont treatment of UTI 3. Debility - PT/OT/PACKAGING LINE ATTENDANT ordered and following 4. Hx of Atrial fibrillation - Cont Coumadin 5mg daily and then 10mg qFriday. - Cont Amiodarone 200 mg BID 5. Hx of CAD s/p CABG - Cont Atorvastatin 100mg daily - Cont Metoprolol succinate 25mg daily - Cont Lasix 20mg PO daily 6. BPH - Cont Finasteride 5mg daily - Cont Tamsulosin 0.4mg daily Dispo: Cont admission to inpatient rehab CODE: Full Code 03/18/2022: Supportive care Meropenem 03/19/2022: Monitor closely BM regimen 03/20/2022: Monitor closely Fall risk 03/21/2022: Meropenem 7 days total 03/22/2022: Supportive care Antibiotics maintained 03/23/2022: Monitor closely 03/24/2022: Monitor for falls (1) Debility (2) Anticoagulated on warfarin (3) Atrial flutter Status: Acute (4) BPH (benign prostatic hyperplasia) Status: Acute (5) HLD (hyperlipidemia) Status: Chronic (6) HTN (hypertension) Status: Chronic (7) Dementia Status: Chronic (8) Urinary tract infection Status: Acute Discharge Summary Discharge Physical Examination Allergies: Coded Allergies: Sulfa (Sulfonamide Antibiotics) (Verified Allergy, Unknown, UNSURE OF REACTION, 07/06/21) Vitals & I&Os Vital Signs Date Time Temp Pulse Resp B/P (MAP) Pulse Ox O2 Delivery O2 Flow Rate FiO2 03/25/22 09:00 Room Air 03/25/22 07:52 36.5 78 20 113/89 (97) 93 General Appearance: Alert, Oriented X3, Cooperative Respiratory: Clear to Auscultation Cardiovascular: Regular Rate Psych/Mental Status: Mental Status NL Hospital Course Was the Problem List Reviewed?: Yes Uneventful course after he was admitted from home after HH was concerned about his weakness and acute UTI with resistant bacteria requiring Meropenem so he was admitted and maintained on Meropenem and completed that treatment while in ARU. PT OT initiated aggressive therapy and he was able to improve upon his baseline strengthening and return home with HH and family support. Overall he had no new issues during course and Cardiology managed INR and supported him in their expertise and modified a few meds and everything was stable at [place]. Labs (last 24 hrs) Laboratory Tests 03/17/22 15:44: White Blood Count 9.1, Red Blood Count 4.58, Hemoglobin 13.3, Hematocrit 42, Mean Corpuscular Volume 92, Mean Corpuscular Hemoglobin 29, Mean Corpuscular Hemoglobin Concent 32, Red Cell Distribution Width 16.7H, Platelet Count 246, Mean Platelet Volume 11.5, Immature Granulocyte % (Auto) 1, Neutrophils (%) (Auto) 68, Lymphocytes (%) (Auto) 16, Monocytes (%) (Auto) 11, Eosinophils (%) (Auto) 3, Basophils (%) (Auto) 1, Neutrophils # (Auto) 6.2, Lymphocytes # (Auto) 1.5, Monocytes # (Auto) 1.0, Eosinophils # (Auto) 0.3, Basophils # (Auto) 0.1, Immature Granulocyte # (Auto) 0.1, Sodium Level 139, Potassium Level 4.2, Chloride Level 104, Carbon Dioxide Level 23, Anion Gap 12, Blood Urea Nitrogen 22H, Creatinine 1.27, Estimat Glomerular Filtration Rate 55, BUN/Creatinine Ratio 17, Glucose Level 102, Calcium Level 9.4, Corrected Calcium 9.5, Total Bi lirubin 0.7, Aspartate Amino Transf (AST/SGOT) 58H, Alanine Aminotransferase (ALT/SGPT) 74H, Alkaline Phosphatase 89, Total Protein 7.5, Albumin 3.9 03/18/22 05:35: White Blood Count 7.5, Red Blood Count 4.09L, Hemoglobin 11.9L, Hematocrit 38L, Mean Corpuscular Volume 92, Mean Corpuscular Hemoglobin 29, Mean Corpuscular Hemoglobin Concent 32, Red Cell Distribution Width 16.9H, Platelet Count 184, Mean Platelet Volume 11.6, Immature Granulocyte % (Auto) 1, Neutrophils (%) (Auto) 62, Lymphocytes (%) (Auto) 21, Monocytes (%) (Auto) 11, Eosinophils (%) (Auto) 4, Basophils (%) (Auto) 1, Neutrophils # (Auto) 4.7, Lymphocytes # (Auto) 1.6, Monocytes # (Auto) 0.8, Eosinophils # (Auto) 0.3, Basophils # (Auto) 0.0, Immature Granulocyte # (Auto) 0.1 03/18/22 05:40: Sodium Level 140, Potassium Level 3.7, Chloride Level 107, Carbon Dioxide Level 24, Anion Gap 9, Blood Urea Nitrogen 23H, Creatinine 0.96, Estimat Glomerular Filtration Rate 77, BUN/Creatinine Ratio 24, Glucose Level 82, Calcium Level 8.8, Corrected Calcium 9.4, Total Bilirubin 0.8, Aspartate Amino Transf (AST/SGO T) 41H, Alanine Aminotransferase (ALT/SGPT) 56H, Alkaline Phosphatase 77, Total Protein 6.2L, Albumin 3.3, Prothrombin Time 32.8H, INR Comment 3.1H 03/20/22 05:13: Prothrombin Time 24.4H, INR Comment 2.1H 03/23/22 06:03: White Blood Count 8.1, Red Blood Count 4.06L, Hemoglobin 11.9L, Hematocrit 37L, Mean Corpuscular Volume 91, Mean Corpuscular Hemoglobin 29, Mean Corpuscular Hemoglobin Concent 32, Red Cell Distribution Width 16.6H, Platelet Count 200, Mean Platelet Volume 12.3H, Immature Granulocyte % (Auto) 1, Neutrophils (%) (Auto) 61, Lymphocytes (%) (Auto) 20, Monocytes (%) (Auto) 13H, Eosinophils (%) (Auto) 5, Basophils (%) (Auto) 1, Neutrophils # (Auto) 5.0, Lymphocytes # (Auto) 1.6, Monocytes # (Auto) 1.0, Eosinophils # (Auto) 0.4H, Basophils # (Auto) 0.1, Immature Granulocyte # (Auto) 0.1, Prothrombin Time 27.3H, INR Comment 2.5H, Sodium Level 137, Potassium Level 3.8, Chloride Level 106, Carbon Dioxide Level 24, Anion Gap 7, Blood Urea Nitrogen 21H, Creatinine 0.85, Estimat Glomerular Filtration Rate 85, BUN/Creatinine Ratio 25, Glucose Level 83, Calcium Level 8.7, Corrected Calcium 9.3, Total Bilirubin 0.5, Aspartate Amino Transf (AST/SGOT) 53H, Alanine Aminotransferase (ALT/SGPT) 66H, Alkaline Phosphatase 81, Total Protein 6.1L, Albumin 3.3 Pending Labs Laboratory Tests 03/17/22 15:44: White Blood Count 9.1, Red Blood Count 4.58, Hemoglobin 13.3, Hematocrit 42, Mean Corpuscular Volume 92, Mean Corpuscular Hemoglobin 29, Mean Corpuscular Hemoglobin Concent 32, Red Cell Distribution Width 16.7, Platelet Count 246, Mean Platelet Volume 11.5, Immature Granulocyte % (Auto) 1, Neutrophils (%) (Auto) 68, Lymphocytes (%) (Auto) 16, Monocytes (%) (Auto) 11, Eosinophils (%) (Auto) 3, Basophils (%) (Auto) 1, Neutrophils # (Auto) 6.2, Lymphocytes # (Auto) 1.5, Monocytes # (Auto) 1.0, Eosinophils # (Auto) 0.3, Basophils # (Auto) 0.1, Immature Granulocyte # (Auto) 0.1, Sodium Level 139, Potassium Level 4.2, Chloride Level 104, Carbon Dioxide Level 23, Anion Gap 12, Blood Urea Nitrogen 22, Creatinine 1.27, Estimat Glomerular Filtration Rate 55, BUN/Creatinine Ratio 17, Glucose Level 102, Calcium Level 9.4, Corrected Calcium 9.5, Total Bilirubin 0.7, Aspartate Amino Transf (AST/SGOT) 58, Alanine Aminotransferase (ALT/SGPT) 74, Alkaline Phosphatase 89, Total Protein 7.5, Albumin 3.9 03/18/22 05:35: White Blood Count 7.5, Red Blood Count 4.09, Hemoglobin 11.9, Hematocrit 38, Mean Corpuscular Volume 92, Mean Corpuscular Hemoglobin 29, Mean Corpuscular Hem oglobin Concent 32, Red Cell Distribution Width 16.9, Platelet Count 184, Mean Platelet Volume 11.6, Immature Granulocyte % (Auto) 1, Neutrophils (%) (Auto) 62, Lymphocytes (%) (Auto) 21, Monocytes (%) (Auto) 11, Eosinophils (%) (Auto) 4, Basophils (%) (Auto) 1, Neutrophils # (Auto) 4.7, Lymphocytes # (Auto) 1.6, Monocytes # (Auto) 0.8, Eosinophils # (Auto) 0.3, Basophils # (Auto) 0.0, Immature Granulocyte # (Auto) 0.1 03/18/22 05:40: Sodium Level 140, Potassium Level 3.7, Chloride Level 107, Carbon Dioxide Level 24, Anion Gap 9, Blood Urea Nitrogen 23, Creatinine 0.96, Estimat Glomerular Filtration Rate 77, BUN/Creatinine Ratio 24, Glucose Level 82, Calcium Level 8.8, Corrected Calcium 9.4, Total Bilirubin 0.8, Aspartate Amino Transf (A ST/SGOT) 41, Alanine Aminotransferase (ALT/SGPT) 56, Alkaline Phosphatase 77, Total Protein 6.2, Albumin 3.3, Prothrombin Time 32.8, INR Comment 3.1 03/20/22 05:13: Prothrombin Time 24.4, INR Comment 2.1 03/23/22 06:03: White Blood Count 8.1, Red Blood Count 4.06, Hemoglobin 11.9, Hematocrit 37, Mean Corpuscular Volume 91, Mean Corpuscular Hemoglobin 29, Mean Corpuscular Hemoglobin Concent 32, Red Cell Distribution Width 16.6, Platelet Count 200, Mean Platelet Volume 12.3, Immature Granulocyte % (Auto) 1, Neutrophils (%) (Auto) 61, Lymphocytes (%) (Auto) 20, Monocytes (%) (Auto) 13, Eosinophils (%) (Auto) 5, Basophils (%) (Auto) 1, Neutrophils # (Auto) 5.0, Lymphocytes # (Auto) 1.6, Monocytes # (Auto) 1.0, Eosinophils # (Auto) 0.4, Basophils # (Auto) 0.1, Immature Granulocyte # (Auto) 0.1, Prothrombin Time 27.3, INR Comment 2.5, Sodium Level 137, Potassium Level 3.8, Chloride Level 106, Carbon Dioxide Level 24, Anion Gap 7, Blood Urea Nitrogen 21, Creatinine 0.85, Estimat Glomerular Filtration Rate 85, BUN/Creatinine Ratio 25, Glucose Level 83, Calcium Level 8.7, Corrected Calcium 9.3, Total Bilirubin 0.5, Aspartate Amino Transf (AST/SGOT) 53, Alanine Aminotransferase (ALT/SGPT) 66, Alkaline Phosphatase 81, Total Protein 6.1, Albumin 3.3 Discharge Home Medications: Active Scripts Active Losartan Potassium 50 Mg Tablet 50 Mg PO DAILY Amiodarone HCl 200 Mg Tablet 200 Mg PO DAILY Paroxetine HCl 20 Mg Tablet 20 Mg PO DAILY 30 Days Flomax (Tamsulosin HCl) 0.4 Mg Cap 0.4 Mg PO 1800 30 Days Atorvastatin Calcium 10 Mg Tablet 10 Mg PO DAILY 30 Days Potassium Chloride 10 Meq Tab.er.prt 10 Meq PO DAILY 30 Days Furosemide 20 Mg Tablet 20 Mg PO DAILY 30 Days Finasteride 5 Mg Tablet 5 Mg PO DAILY 30 Days Reported Seroquel (Quetiapine Fumarate) 50 Mg Tablet 50 Mg PO HS Warfarin Sodium 10 Mg Tablet 10 Mg PO 1800 ON WEDNESDAY 5 MG PO ,,,,SA,QUINN. 10 MG PO WEDNESDAY. Warfarin Sodium 5 Mg Tablet 5 Mg PO DAILY @1800 5 MG PO ,,,,SA,QUINN. 10 MG PO WEDNESDAY. Metoprolol Succinate 25 Mg Tab.er.24h 25 Mg PO DAILY Allopurinol 100 Mg Tablet 100 Mg PO HS Bupropion Xl (Bupropion HCl) 150 Mg Tab.er.24h 150 Mg PO DAILY Omeprazole 40 Mg Capsule.dr 40 Mg PO DAILY Instructions to patient/family Please see electronic discharge instructions given to patient. Diagnosis/Problems Diagnosis/Problems (1) Debility (2) Anticoagulated on warfarin (3) Atrial flutter Status: Acute (4) BPH (benign prostatic hyperplasia) Status: Acute (5) HLD (hyperlipidemia) Status: Chronic (6) HTN (hypertension) Status: Chronic (7) Dementia Status: Chronic (8) Urinary tract infection Status: Acute SANDRA ORELLANA DO Mar 25, 2022 05:41
--- NOTE | 2022-03-25 05:41 | D/C HH Face to Face Order ---
D/C Face to Face Orders Reconcile Patient Problems Problems Reviewed?: Yes Instructions for Patient Kitty Patient Instructions/FollowUp: Dr Begum in 1 week Physician to follow Patient: Shy Discharge Diet for Home: No Restrictions Patient Problems: UTI Debility Dementia Patient Data-Allergies,Ht & Wt Patient Allergies: Coded Allergies: Sulfa (Sulfonamide Antibiotics) (Verified Allergy, Unknown, UNSURE OF REACTION, 07/06/21) Home Health Need/Face to Face Date of Face to Face: Mar 25, 2022 Clinical Findings: Generalized weakness and fatigue, Instability, Muscle weakness, Unsteady gait I have seen Pt [id number]: Yes Discharged To: Home Diagnosis/Conditions: Debility Patient is Homebound due to: CognItive deficits, Isis fall risk due to instabilty, Muscle weakness Homebound Status Due to the above stated illness, injury or surgical procedure (medical condition or diagnosis) and associated clinical findings, the patient is homebound because of his/her inability to leave home except with aid of a supportive device and/or person AND leaving the home requires a considerable and taxing effort or is medically contraindicated. Pt req the following assistanc: Walker Home Health Nursing Orders Home Health Services Order: Nursing Services, Template Layout Worker-Evaluate & Treat, Physical Therapy-Evaluate & Treat Certify Stmt I certify that this patient is under my care and that I, a nurse practitioner or a physician; a assistant manager of operations working with me, had a face to face encounter that - meets the physician face to face encounter requirements with this patient as sukhjinder hicks. SANDRA ORELLANA DO Mar 25, 2022 05:41
[2022-03-25] MEDS: KCL 10 MEQ TAB (MICRO K) PO SCH (06:52)
[2022-03-25 07:52] VITALS: BP 113/89
[2022-03-25] MEDS: PANTOPRAZOLE 40 MG (PROTONIX) TAB PO SCH (08:24)
[2022-03-25] MEDS: DOCUSATE SODIUM 100 MG (COLACE) CAP PO SCH (08:24)
[2022-03-25] MEDS: SENNA W/DOCUSATE (SENOKOT S) TABLET PO SCH (08:24)
[2022-03-25] MEDS: buPROPion SR 150 MG (WELLBUTRIN SR) TAB PO SCH (08:24)
[2022-03-25] MEDS: PARoxetine 20 MG (PAXIL) TAB PO SCH (08:24)
[2022-03-25] MEDS: AMIODARONE 200 MG (CORDARONE) TAB PO SCH (08:24)
[2022-03-25] MEDS: LOSARTAN 50 MG (COZAAR) TAB PO SCH (08:24)
[2022-03-25] MEDS: FUROSEMIDE 20 MG (LASIX) TAB PO SCH (08:24)
[2022-03-25] MEDS: FINASTERIDE (PROSCAR) 5 MG TAB PO SCH (08:24)
[2022-03-25] MEDS: AtorvaSTATin TABLET 10 MG TABLET PO SCH (08:24)
--- NOTE | 2022-03-25 08:24 | Cardiology Progress Note ---
Subjective Date Seen by Provider: Mar 25, 2022 Time Seen by Provider: 08:23 Subjective/Events-last exam Patient sitting up in chair, no new complaints. Planning for discharge later today Objective-Cardiology Exam Last Set of Vital Signs Vital Signs 03/25/22 07:52 Temp 36.5 Pulse 78 Resp 20 B/P (MAP) 113/89 (97) Pulse Ox 93 O2 Delivery Room Air I&O Intake and Output 03/25/22 00:00 Intake Total 200 ml Balance 200 ml Intake IV Total 200 ml General: Alert, Oriented X3 HEENT: Atraumatic Neck: Supple Lungs: Clear to Auscultation, Normal Air Movement Heart: Regular Rate, Normal S1, Normal S2 Abdomen: Soft Extremities: Other (Peripheral edema) Skin: No Rashes, No Significant Lesion Neuro: Normal Speech Psych/Mental Status: Mood NL A/P-Cardiology Admission Diagnosis UTI CAD PAF hx TAVR Assessment/Plan Generalized debility/weakness, continue PT/OT Paroxysmal atrial fib/flutter, history of cardioversion September 08, 2021. Unable to tolerate diltiazem due to hypotension and bradycardia Beta-blockers were discontinued Amiodarone was decreased to 200 mg once daily Heart rate is better, continue to monitor. 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 [id number] score of 6, yearly risk of stroke without oral anticoagulation is 9.8%. Maintained on Coumadin. Coronary artery disease History of CABG [place] [address] Bradshaw, has been followed by Dr. White and Dr. Samuels after that Cardiac catheterization done July [address] Samuels revealing severe multivessel [place] coronary artery disease. 3 out of 4 patent bypass grafts with the RATLIFF being atretic. 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 Andrew, had complex and prolonged recovery in [facility] secondary to UTI, sepsis, questionable anoxic brain injury Most recent 2D Echo done September 2019 showed LV cavity size is increased and wall thickness is mildly to moderatley increased LV systolic function is mildy decreased with EF 40-45%, diastolic dysfunction. RV systolic function is reduce, LA is mildly dilated measuring 4.8 cm, MV has moderately calcified annulus-sclerosis with mild stenosis. mod TR, PA 35-40 mmHg Hypertension, controlled. Intolerant to beta blockers d/t bradycardia. Losartan 50mg daily added on 03/24/22. Continue to monitor. 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 f/u in the office in 2-4 weeks. GENOVEVA SOLER Mar 25, 2022 08:24
[2022-03-25] MEDS: polyethylene glycoL POWDER 17 GM (MIRALAX) PACK PO SCH (08:46)
--- NOTE | 2022-03-25 09:49 | Therapy Team Discharge Summary ---
Therapy Discharge Summary Discharge Recommendations Date of Discharge Physical Therapy Roll Left to Right (QC): 6 Sit to Lying (QC): 6 Lying to Sitting/Side of Bed(Q: 6 Sit to Stand (QC): 3 Chair/Qsw-pf-Mpwva Xfer(QC): 3 Toilet Transfer (QC): 3 Car Transfer (QC): 4 Does the Patient Walk: Yes Mode of Locomotion: Both Anticipated Mode of Locomotion: Both Walk 10 feet (QC): 4 Walk 50 ft with 2 Turns(QC): 4 Walk 150 ft (QC): 4 Walking 10ft on uneven surface: 4 Distance: 150' x 3 Gait Assistive Device: FWW Does the Pt Use a Wheelchair: No Wheel 50 ft with 2 turns (QC): 4 Wheel 150 ft (QC): 88 #of Steps: 8 1 Step (curb) (QC): 3 4 Steps (QC): 3 12 Steps (QC): 88 Balance Sitting Static: Normal Balance Sitting Dynamic: Normal Balance-Standing Static: Fair Picking up an Object (QC): 88 Occupational Therapy Pt admitted to ARU with debility/UTI. At PLOF pt required assistance with mobility using FWW and manual w/c, and assistance with ADLs. He required total assist with LE dressing and footwear, min A UE dressing and showering, and he was independent with eating. Upon initial evaluation, pt required set up with gavin gomez, CGA oral care, showering, toileting, Min A UE/LE dressing, and SBA with footwear. OT tx focused on increasing safety and independence with ADLs and functional mobility, and increasing UE strength and activity tolerance. Pt made some functional progress towards goals, but only attained goals for eating and oral care. Pt's progress limited by history of dementia, safety concerns and cues required throughout tx. Pt to discharge from facility, d/c from OT. Decreased Activ Tolerance, Decreased Safety Aware, Impaired Cognition, Impaired Self-Care Skills Eating (QC): 6 Oral Hygiene (QC): 6 Shower/Bathe Self (QC): 4 Upper Body Dressing (QC): 5 Lower Body Dressing (QC): 4 On/Off Footwear (QC): 5 Toileting Hygiene (QC): 4 PT Control Clerk Auditing Goals Intermediate Goals PT Intermediate Goals Time Frame: Apr 18, 2022 Scoring Section J - Health Conditions 1. Rarely or not at all 2. Occasionally 3. Frequently 4. Almost constantly 8. Unable to answer Pain Effect on Sleep: 8 Pain Interference with Therapy: 8 Pain Interference w/Day-to-Day: 8 Roll Left to Right (QC): 6 Sit to Lying (QC): 6 Lying-Sitting on Side/Bed(QC): 6 Sit to Stand (QC): 4 Chair/Pzy-nt-Fxcna Xfer(QC): 4 Car Transfer (QC): 6 Does the Patient Walk: Yes Walk 10 feet (QC): 5 Walk 10ft-Uneven Surface(QC): 5 Walk 50ft with 2 Turns (QC): 5 Walk 150 ft (QC): 5 Gait Assistive Device: FWW Does the Pt use WC or Scooter?: Yes Wheel 50 feet with 2 turns (QC: 4 # of Steps: 12 1 Step (curb) (QC): 4 4 Steps (QC): 4 12 Steps (QC): 4 Picking up an Object (QC): 4 OT Intermediate Goals Control Clerk Auditing Goals Time Frame: Apr 10, 2022 Acute change in mental status: 0 Inattention: 0 Disorganized thinkin Altered level of consciousness: 0 Eating (QC): 6 (met) Oral Hygiene (QC): 6 (met) Toileting Hygiene (QC): 6 (not met-CGA) Shower/Bathe Self (QC): 6 (not met-CGA in standing) Upper Body Dressing (QC): 6 (not met-set up) Lower Body Dressing (QC): 6 (not met-CGA) On/Off Footwear (QC): 6 (not met-set up) Additional Goals: 1-Demonstrate ADL Tasks, 2-Verbalize Understanding, 3- ImproveStrength/Inocencio 1=Demonstrate adherence to instructed precautions during ADL tasks. 2=Patient will verbalize/demonstrate understanding of assistive devices/jarad fications for ADL. 3=Patient will improve strength/tolerance for activity to enable patient to perform ADL's. Speech Intermediate Goals Intermediate Goals 1. The patient will demonstrate improved cognitive linguistic skills for safe discharge to the least restrictive environment. MET: The patient continues to display cognitive deficits, most notably in the area of memory. Upon arrival, the patient displayed increased confusion from his baseline memory deficits which has appeared to clear. Progression was made towards cognitive goal, however, supervision following discharge remains appropriate for the patient's safety. Time Frame: Two Weeks. HALLE FRANK OT Mar 25, 2022 09:49
--- NOTE | 2022-03-25 14:21 | Therapy Team Discharge Summary ---
Therapy Discharge Summary Discharge Recommendations Date of Discharge Mar 25, 2022 at 10:35 Physical Therapy Patient came to rehab with debility/UTI. Upon evaluation patient performed rolling and supine <-> sit with independence, sit <-> stand and transfers with min/mod assist, car transfer CGA/SBA, ambulated 150' with a rolling walker with min/mod assist (including 50' with at least 2 turns of 90 degrees and 10' over an uneven surface), and went up and down 8 steps using 2 handrails with min/mod assist. Patient has been performing bed mobility and transfer training, balance and endurance training, functional strengthening, stair training, gait training, and education. 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 Now, patient performed rolling and supine <-> sit with independence, sit <-> stand and transfers with min/mod assist, car transfer CGA/SBA, ambulated 150' with a rolling walker with CGA/SBA assist (including 50' with at least 2 turns of 90 degrees and 10' over an uneven surface), and went up and down 8 steps using 2 handrails with min/mod assist. Patient has been discharged from this facility and will be discharged from PT at this time. Roll Left to Right (QC): 6 Sit to Lying (QC): 6 Lying to Sitting/Side of Bed(Q: 6 Sit to Stand (QC): 3 Chair/Etd-nl-Aeirl Xfer(QC): 3 Toilet Transfer (QC): 3 Car Transfer (QC): 4 Does the Patient Walk: Yes Mode of Locomotion: Both Anticipated Mode of Locomotion: Both Walk 10 feet (QC): 4 Walk 50 ft with 2 Turns(QC): 4 Walk 150 ft (QC): 4 Walking 10ft on uneven surface: 4 Distance: 150' x 3 Gait Assistive Device: FWW Does the Pt Use a Wheelchair: No Wheel 50 ft with 2 turns (QC): 4 Wheel 150 ft (QC): 88 #of Steps: 8 1 Step (curb) (QC): 3 4 Steps (QC): 3 12 Steps (QC): 88 Balance Sitting Static: Normal Balance Sitting Dynamic: Normal Balance-Standing Static: Fair Picking up an Object (QC): 88 Occupational Therapy Decreased Activ Tolerance, Decreased Safety Aware, Impaired Cognition, Impaired Self-Care Skills Eating (QC): 6 Oral Hygiene (QC): 6 Shower/Bathe Self (QC): 4 Upper Body Dressing (QC): 5 Lower Body Dressing (QC): 4 On/Off Footwear (QC): 5 Toileting Hygiene (QC): 4 PT Reclamation Engineer Goals Reclamation Engineer Goals PT Detention Goals Time Frame: Apr 18, 2022 Scoring Section J - Health Conditions 1. Rarely or not at all 2. Occasionally 3. Frequently 4. Almost constantly 8. Unable to answer Pain Effect on Sleep: 8 Pain Interference with Therapy: 8 Pain Interference w/Day-to-Day: 8 Roll Left to Right (QC): 6 Sit to Lying (QC): 6 Lying-Sitting on Side/Bed(QC): 6 Sit to Stand (QC): 4 Chair/Oik-ul-Mdtur Xfer(QC): 4 Car Transfer (QC): 6 Does the Patient Walk: Yes Walk 10 feet (QC): 5 Walk 10ft-Uneven Surface(QC): 5 Walk 50ft with 2 Turns (QC): 5 Walk 150 ft (QC): 5 Gait Assistive Device: FWW Does the Pt use WC or Scooter?: Yes Wheel 50 feet with 2 turns (QC: 4 # of Steps: 12 1 Step (curb) (QC): 4 4 Steps (QC): 4 12 Steps (QC): 4 Picking up an Object (QC): 4 OT Detention Goals Reclamation Engineer Goals Time Frame: Apr 10, 2022 Acute change in mental status: 0 Inattention: 0 Disorganized thinkin Altered level of consciousness: 0 Eating (QC): 6 (met) Oral Hygiene (QC): 6 (met) Toileting Hygiene (QC): 6 (not met-CGA) Shower/Bathe Self (QC): 6 (not met-CGA in standing) Upper Body Dressing (QC): 6 (not met-set up) Lower Body Dressing (QC): 6 (not met-CGA) On/Off Footwear (QC): 6 (not met-set up) Additional Goals: 1-Demonstrate ADL Tasks, 2-Verbalize Understanding, 3- ImproveStrength/Inocencio 1=Demonstrate adherence to instructed precautions during ADL tasks. 2=Patient will verbalize/demonstrate understanding of assistive devices/modifications for ADL. 3=Patient will improve strength/tolerance for activity to enable patient to perform ADL's. Speech Detention Goals Detention Goals 1. The patient will demonstrate improved cognitive linguistic skills for safe discharge to the least restrictive environment. MET: The patient continues to display cognitive deficits, most notably in the area of memory. Upon arrival, the patient displayed increased confusion from his baseline memory deficits which has appeared to clear. Progression was made towards cognitive goal, however, supervision following discharge remains appropriate for the patient's safety. Time Frame: Two Weeks. MITESH OHARA PT Mar 25, 2022 14:21
== END 2022-03-25 10:35 | disposition home health service (06) | DRG 948 ==
PROVIDERS: ADMIT Internal Medicine; ATTEND Internal Medicine
DX: R53.81 Other malaise (principal); N39.0 Urinary tract infection, site not specified; Z16.12 Extended spectrum beta lactamase (ESBL) resistance; G93.40 Encephalopathy, unspecified; I48.0 Paroxysmal atrial fibrillation; F03.90 Unspecified dementia, unspecified severity, without behavioral disturbance, psychotic disturbance, mood disturbance, and anxiety; I25.10 Atherosclerotic heart disease of native coronary artery without angina pectoris; I10 Essential (primary) hypertension; E78.5 Hyperlipidemia, unspecified; N40.0 Benign prostatic hyperplasia without lower urinary tract symptoms; I08.1 Rheumatic disorders of both mitral and tricuspid valves; B96.89 Other specified bacterial agents as the cause of diseases classified elsewhere; Z79.01 Long term (current) use of anticoagulants; Z95.1 Presence of aortocoronary bypass graft; Z95.2 Presence of prosthetic heart valve; Z86.73 Personal history of transient ischemic attack (TIA), and cerebral infarction without residual deficits; Z88.2 Allergy status to sulfonamides; Z86.718 Personal history of other venous thrombosis and embolism; Z86.711 Personal history of pulmonary embolism; Z23 Encounter for immunization
CPT/HCPCS: 36415; 80053; 85025; 85610; 90662

== ENCOUNTER → 2022-06-03 | Outpatient (CLI) | payer MEDICARE, OTHER ==
[~2022-06-03] MED LIST changes: +ALLO100T PO; +BUPR150T24 PO; +LOSA50TA63 PO; +OMEP40CA6 PO; +QUET50TA PO
--- NOTE | 2022-06-03 08:52 | Diagnostic Imaging Report ---
PROCEDURE: CT head without contrast. TECHNIQUE: Multiple contiguous axial images were obtained through the brain without the use of intravenous contrast. Auto Exposure Controls were utilized during the CT exam to meet ALARA standards for radiation dose reduction. INDICATION: Known subdural hemorrhage as the result of an injury sustained 2 months ago. COMPARISON: No priors for comparison since the injury. The most recent comparison is a more remote exam performed on 10/09/2020. FINDINGS: There are bilateral low density subdural collections. The thickness measures maximally on the left in the coronal reconstructions at 11 mm and on the right at 5 mm. There is no resultant shift of the midline structures. While the fluid in the subdural space is low in attenuation, its density is slightly greater than the ventricular CSF itself. Given the history provided, this is most consistent with chronic residual subdural fluid/remote blood products from the prior injury. There is no hyperdense fluid within the collections to suggest rebleed and there is no fluid/fluid or hematocrit layering. Some bridging veins crossing the collections are noted but no suspicious hyperdensity. There are no findings of parenchymal or ventricular blood. There is no evidence for elevated intracranial pressures. Collections result in no mass effect, likely mitigated by mild generalized cerebral cortical atrophy which is unremarkable in a patient of this age. There is no calvarial fracture deformity. There is no hemo-sinus. There is no pneumocephalus. No findings of cortical or generalized cerebral edema. There are intracranial vascular calcifications, atherosclerotic and chronic. IMPRESSION: 1. Bilateral low-density subdural collections without mass effect, shift, herniation, or evidence for elevated pressures. While precise acuity is indeterminate, given the history provided, they are presumed residual chronic blood products; however, we knowledge challenges owing to the absence of a more recent comparison. If images from an outside facility demonstrating the known subdural blood are present, based upon the history provided, their submission would be encouraged and, if available, an addendum would be addressed upon receipt detailing stability and/or changes. 2. No hyperdense blood to suggest acute or recent hemorrhage and no fracture is identified. 3. Some senescent background atrophy, white matter disease, and atherosclerosis are chronic findings. Low-density frontoparietal subdural collections, greater left. Dictated by: Dictated on workstation # [id number]
== END ==
LOC: RAD 08:45
PROVIDERS: ATTEND Neurological Surgery
DX: S06.5XAA Traumatic subdural hemorrhage with loss of consciousness status unknown, initial encounter (principal); X58.XXXA Exposure to other specified factors, initial encounter
CPT/HCPCS: 70450

== ENCOUNTER 2022-10-18 14:08 | Emergency (ER) | payer MEDICARE, OTHER ==
[~2022-10-18] VITALS: Ht 172.7 cm; Wt 95.2 kg
[2022-10-18 14:16] VITALS: BP 142/70
[2022-10-18 14:40] LABS: BASOPHILS # (AUTO) 0.1 10^3/uL (0.0-0.1); BASOPHILS % (AUTO) 1 % (0-10); EOSINOPHILS # (AUTO) 0.4 10^3/uL (0.0-0.3); EOSINOPHILS % (AUTO) 3 % (0-10); HEMATOCRIT 42 % (40-54); HEMOGLOBIN 13.9 g/dL (13.3-17.7); LYMPHOCYTES # (AUTO) 1.8 10^3/uL (1.0-4.0); LYMPHOCYTES % (AUTO) 17 % (12-44); MEAN CORPUSCULAR HEMOGLOBIN 31 pg (25-34); MEAN CORPUSCULAR HGB CONC 33 g/dL (32-36); MEAN CORPUSCULAR VOLUME 93 fL (80-99); MEAN PLATELET VOLUME 11.4 fL (9.0-12.2); MONOCYTES # (AUTO) 1.3 10^3/uL (0.0-1.0); MONOCYTES % (AUTO) 12 % (0-12); NEUTROPHILS # (AUTO) 7.3 10^3/uL (1.8-7.8); NEUTROPHILS % (AUTO) 67 % (42-75); PLATELET COUNT 259 10^3/uL (130-400); WHITE BLOOD COUNT 10.9 10^3/uL (4.3-11.0)
[2022-10-18 14:51] LABS: ALBUMIN 3.7 GM/DL (3.2-4.5)
[2022-10-18 14:52] LABS: CHLORIDE 103 MMOL/L (98-107); POTASSIUM 3.9 MMOL/L (3.6-5.0); SODIUM 140 MMOL/L (135-145)
[2022-10-18 14:53] LABS: CALCIUM 9.4 MG/DL (8.5-10.1)
[2022-10-18 14:54] LABS: FIBRIN DEGRADATION PRODUCTS 0.91 UG/ML (0.00-0.49); GLUCOSE 97 MG/DL (70-105); PROTHROMBIN TIME PATIENT 13.9 SEC (12.2-14.7); TOTAL PROTEIN 7.8 GM/DL (6.4-8.2)
[2022-10-18 14:55] LABS: CARBON DIOXIDE 23 MMOL/L (21-32)
[2022-10-18 14:56] LABS: BILIRUBIN,TOTAL 0.6 MG/DL (0.1-1.0)
[2022-10-18 14:57] LABS: ALKALINE PHOSPHATASE 107 U/L (40-136)
[2022-10-18 14:58] LABS: CREATININE SERUM 0.85 MG/DL (0.60-1.30); GFR ESTIMATED 85
[2022-10-18 14:59] LABS: BUN/CREATININE RATIO 22
[2022-10-18 15:00] LABS: ALANINE AMINOTRANSFERASE 44 U/L (0-55)
--- NOTE | 2022-10-18 15:12 | Diagnostic Imaging Report ---
PROCEDURE: CT head w/o r/o stroke. TECHNIQUE: Multiple contiguous axial images were obtained through the brain without the use of intravenous contrast. Auto Exposure Controls were utilized during the CT exam to meet ALARA standards for radiation dose reduction. [id number]: Slurred speech. COMPARISON: 06/03/2022. FINDINGS: No intracranial hyperdense hemorrhage or space-occupying mass. The chronic left-sided subdural hematoma over the cerebral convexities is unchanged measuring up to 6 mm in thickness. No hydrocephalus or midline shift. Linder-white matter differentiation is well-preserved. No hyperdense vessel sign. No acute skull fracture. Paranasal sinuses and mastoid air cells are clear. IMPRESSION: 1. No acute intracranial hemorrhage or large territorial infarct. 2. Chronic left subdural hematoma is stable to slightly decreased in size since 06/03/2022 exam. Dictated by: Dictated on workstation # [id number]
--- NOTE | 2022-10-18 15:23 | Diagnostic Imaging Report ---
INDICATION: Stroke, slurred speech. COMPARISON: 09/07/2021. TECHNIQUE: Single radiograph of the chest dated October 18, 2022. 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 The cardiac silhouette is within normal limits in size. No significant pulmonary vascular congestion. Background senescent changes of the lungs are again noted. No new focal pulmonary opacity. No pleural effusion. No pneumothorax. No acute osseous abnormality. IMPRESSION: Postsurgical and senescent changes, as described above, without superimposed acute cardiopulmonary abnormality. Dictated by: Dictated on workstation # [id number]
--- NOTE | 2022-10-18 15:33 | ED Neurological Problem ---
General Chief Complaint: Neuro-Stroke Like Symptoms Stated Complaint: POSSIBLE STROKE Nursing Triage Note: Daughters bring patient into ER today with c/o slurry speech, Rt. facial droop, and HYATT this AM. Daughters state patient has a Hx. of stroke and TIAs. Daughters state patient had a brain bleed back in June after hitting his head during a fall. Patient states his speech was normal around 11 today. Daughters state patient had a little bit of a hard time picking LLE up to get into car when going out to lunch. Patient denies any HYATT at this time. Patient denies any visual changes or changes in sensation. Patient was able to get out of wheelchair with assist x 1 to obtain weight and get onto ER stretcher. Source: patient, family, old records Exam Limitations: no limitations History of Present Illness Date Seen by Provider: October 18, 2022 Time Seen by Provider: 14:17 Initial Comments This 87-year-old gentleman is brought to the emergency room by his daughter with concern about slurred speech and facial droop. They picked him up at about 12:45 for lunch and noticed the symptoms at that time. Patient states he noticed a problem with his speech around 11:00. snf staff report they believe his last known well time was about noon. Ultimately, the last known well time is in question. Patient also reportedly had a headache this morning. He requires assistance with transfers and walking. His daughter thought he required more assistance than usual this morning. Patient has history of bilateral subdural hematomas that occurred sometime last fall. There is evidence of those hemorrhages on CT imaging in our records from June 03. They were not acute at that time. Family is uncertain when he actually developed nosebleeds. Reportedly they were identified during an admission at [facility] sometime between March and May. Patient was on warfarin at the time. He had remote history of DVT and PE. He also has history of CABG, paroxysmal atrial fibrillation, and TAVR valve replacement. He is no longer anticoagulated. He is in sinus rhythm on the monitors at present. Stroke activation was paged. Patient's NIH score was 4 with points being assigned for disorientation (daughter states it is unusual for him not to know his age or the month), right-sided facial droop, and facial droop. Although not scored on the NIH, daughter also reported he required more assistance with transfer than usual. Allergies and Home Medications Allergies Coded Allergies: Sulfa (Sulfonamide Antibiotics) (Verified Allergy, Unknown, UNSURE OF REACTION, 07/06/21) Patient Home Medication List Home Medication List Reviewed: Yes Allopurinol (Allopurinol) 100 Mg Tablet, 100 MG PO HS, (Reported) Entered as Reported by: CHASITY CARRANZA on 03/17/22 144 Amiodarone HCl (Amiodarone HCl) 200 Mg Tablet, 200 MG PO DAILY Prescribed by: SANDRA ORELLANA on 03/25/22 0540 Atorvastatin Calcium (Atorvastatin Calcium) 10 Mg Tablet, 10 MG PO DAILY Prescribed by: JOANNE CARUSO on 09/12/21 1036 Bupropion HCl (Bupropion Xl) 150 Mg Tab.er.24h, 150 MG PO DAILY, (Reported) Entered as Reported by: CHASITY CARRANZA on 03/17/22 144 Finasteride (Finasteride) 5 Mg Tablet, 5 MG PO DAILY Prescribed by: JOANNE CARUSO on 09/12/21 103 Furosemide (Furosemide) 20 Mg Tablet, 20 MG PO DAILY Prescribed by: JOANNE CARUSO on 09/12/21 103 Losartan Potassium (Losartan Potassium) 50 Mg Tablet, 50 MG PO DAILY Prescribed by: SANDRA ORELLANA on 03/25/22 0540 Metoprolol Succinate (Metoprolol Succinate) 25 Mg Tab.er.24h, 25 MG PO DAILY, (Reported) Entered as Reported by: CHASITY CARRANZA on 03/17/22 144 Omeprazole (Omeprazole) 40 Mg Capsule.dr, 40 MG PO DAILY, (Reported) Entered as Reported by: CHASITY CARRANZA on 03/17/22 144 Paroxetine HCl (Paroxetine HCl) 20 Mg Tablet, 20 MG PO DAILY Prescribed by: JOANNE CARUSO on 09/12/21 103 Potassium Chloride (Potassium Chloride) 10 Meq Tab.er.prt, 10 MEQ PO DAILY Prescribed by: JOANNE CARUSO on 09/12/21 1036 Quetiapine Fumarate (Seroquel) 50 Mg Tablet, 50 MG PO HS, (Reported) Entered as Reported by: CHASITY CARRANZA on 03/17/22 144 Tamsulosin HCl (Flomax) 0.4 Mg Cap, 0.4 MG PO 1800 Prescribed by: JOANNE CARUSO on 09/12/21 1036 Warfarin Sodium (Warfarin Sodium) 5 Mg Tablet, 5 MG PO DAILY @1800, (Reported) Entered as Reported by: CHASITY CARRANZA on 03/17/221448 Warfarin Sodium (Warfarin Sodium) 10 Mg Tablet, 10 MG PO 1800 ON WEDNESDAY, (Reported) Entered as Reported by: CHASITY CARRANZA on 03/17/221448 Review of Systems Review of Systems Constitutional: no symptoms reported Eyes: No Symptoms Reported Ears, Nose, Mouth, Throat: see HPI Respiratory: no symptoms reported Cardiovascular: no symptoms reported Gastrointestinal: no symptoms reported Genitourinary: no symptoms reported Musculoskeletal: no symptoms reported Skin: no symptoms reported Psychiatric/Neurological: See HPI Endocrine: No Symptoms Reported Hematologic/Lymphatic: No Symptoms Reported Past Wtlvmup-Fnheem-Mqqtco Hx Patient Social History Tobacco Use?: No Use of E-Cig and/or Vaping dev: No Substance use?: No Alcohol Use?: No Pt feels they are or have been: No Immunizations Up To Date Tetanus Booster (TDap): Less than 5yrs PED Vaccines UTD: No Influenza Vaccine Up-to-Date: No; Not Current First/Initial COVID19 Vaccinat: 08/2020 Second COVID19 Vaccination Demarco: 09/2020 Third COVID19 Vaccination Date: June Seasonal Allergies Seasonal Allergies: No Past Medical History Surgery/Hospitalization HX: TIA, Stroke Surgeries: Yes (MITRAL VALVE REPLACEMENT, lithrotripsy) CABG, Tonsillectomy, Valve Replacement (TAVR) Respiratory: Yes Pulmonary Embolism Currently Using CPAP: No Currently Using BIPAP: No Cardiac: Yes (HX CABG) Atrial Fibrillation (Paroxysmal), Coronary Artery Disease, Deep Vein Thrombosis, High Cholesterol, Hypertension, Valvular Heart Disease Neurological: Yes Dementia, TIA Sexually Transmitted Disease: No HIV/AIDS: No Genitourinary: Yes Prostate Problems, Kidney Stones Gastrointestinal: Yes Gastroesophageal Reflux, Chronic Constipation Musculoskeletal: No Endocrine: No HEENT: Yes (PARTIAL DENTURE) Cancer: No Psychosocial: Yes Depression Integumentary: No Blood Disorders: No Adverse Reaction/Blood Tranf: No (N/A) Family Medical History No Pertinent Family Hx Physical Exam Vital Signs Vital Signs - First Documented 10/18/22 10/18/22 14:14 14:16 Temp 36.3 Pulse 64 Resp 64 B/P (MAP) 142/70 (94) Pulse Ox 95 O2 Delivery Room Air FiO2 95 Capillary Refill : Height, Weight, BMI Height: '" Weight: lbs. oz. kg; 31.00 BMI Method: General Appearance: WD/WN, no apparent distress HEENT: PERRL/EOMI, other (Right-sided facial droop) Neck: normal inspection Respiratory: lungs clear, normal breath sounds, no respiratory distress Cardiovascular: regular rate, rhythm, no edema, no murmur Gastrointestinal: non tender, soft Extremities: normal inspection, no pedal edema Neurologic/Psychiatric: alert, normal mood/affect, abnormal hydro operator II-XII (Right- sided facial droop which is overcome with smiling. Dysarthria), other (Disoriented to age and month) Crainal Nerves: normal hearing, PERRL, abnormal speech (Dysarthria), facial asymmetry, facial droop Coordination/Gait: normal finger to nose (Normal [id number]) Motor/Sensory: no motor deficit, no sensory deficit Skin: normal color, warm/dry Stroke NIH Stroke Scale Assessment Level of Consciousness: 0=Alert (0), Level of Consciousness-Questions: 2=Answer neither question (2), LOC Commands: 0=Performs both tasks (0), Gaze: Normal (0), Visual Main: 0=No visual loss (0), Facial Movement (Facial Paresis): 1=Minor paralysis (1), Motor Function-Arms Right: 0=No drift (0), Motor Function-Arms Left: 0=No drift (0), Motor Function-Legs Right: 0=No drift (0), Motor Function-Legs Left: 0=No drift (0), Limb Ataxia: 0=Absent (0), Sensory: 0=Normal:no loss (0), Best Language: 0=No aphasia (0), Dysarthria: 1=Mild to moderate loss (1), Extinction & Inattention: 0=No abnormality (0), Total: 4 Stroke Thrombolytic Exclusion Age 18 or Over: Yes Acute intenal hemorrhage: No Oral Anticoagulants: No Progress/Results/Core Measures Results/Orders Lab Results Laboratory Tests Test 10/18/22 14:26 10/18/22 14:49 10/18/22 16:49 Range/Units White Blood Count 10.9 4.3-11.0 10^3/uL Red Blood Count 4.51 4.30-5.52 10^6/uL Hemoglobin 13.9 13.3-17.7 g/dL Hematocrit 42 40-54 % Mean Corpuscular Volume 93 80-99 fL Mean Corpuscular Hemoglobin 31 25-34 pg Mean Corpuscular Hemoglobin Concent 33 32-36 g/dL Red Cell Distribution Width 14.3 10.0-14.5 % Platelet Count 259 130-400 10^3/uL Mean Platelet Volume 11.4 9.0-12.2 fL Immature Granulocyte % (Auto) 1 % Neutrophils (%) (Auto) 67 42-75 % Lymphocytes (%) (Auto) 17 12-44 % Monocytes (%) (Auto) 12 0-12 % Eosinophils (%) (Auto) 3 0-10 % Basophils (%) (Auto) 1 0-10 % Neutrophils # (Auto) 7.3 1.8-7.8 10^3/uL Lymphocytes # (Auto) 1.8 1.0-4.0 10^3/uL Monocytes # (Auto) 1.3 H 0.0-1.0 10^3/uL Eosinophils # (Auto) 0.4 H 0.0-0.3 10^3/uL Basophils # (Auto) 0.1 0.0-0.1 10^3/uL Immature Granulocyte # (Auto) 0.1 0.0-0.1 10^3/uL Prothrombin Time 13.9 12.2-14.7 SEC INR Comment 1.0 0.8-1.4 Activated Partial Thromboplast Time 35 24-35 SEC D-Dimer 0.91 H 0.00-0.49 UG/ML Sodium Level 140 135-145 MMOL/L Potassium Level 3.9 3.6-5.0 MMOL/L Chloride Level 103 98-107 MMOL/L Carbon Dioxide Level 23 21-32 MMOL/L Anion Gap 14 5-14 MMOL/L Blood Urea Nitrogen 19 H 7-18 MG/DL Creatinine 0.85 0.60-1.30 MG/DL Estimat Glomerular Filtration Rate 85 BUN/Creatinine Ratio 22 Glucose Level 97 70-105 MG/DL Calcium Level 9.4 8.5-10.1 MG/DL Corrected Calcium 9.6 8.5-10.1 MG/DL Total Bilirubin 0.6 0.1-1.0 MG/DL Aspartate Amino Transf (AST/SGOT) 50 H 5-34 U/L Alanine Aminotransferase (ALT/SGPT) 44 0-55 U/L Alkaline Phosphatase 107 40-136 U/L Troponin I < 0.028 <0.028 NG/ML Total Protein 7.8 6.4-8.2 GM/DL Albumin 3.7 3.2-4.5 GM/DL Glucometer 99 70-110 MG/DL Urine Color YELLOW Urine Clarity CLEAR Urine pH 5.5 5-9 Urine Specific Peetz 1.010 L 1.016-1.022 Urine Protein NEGATIVE NEGATIVE Urine Glucose (UA) NEGATIVE NEGATIVE Urine Ketones NEGATIVE NEGATIVE Urine Nitrite NEGATIVE NEGATIVE Urine Bilirubin NEGATIVE NEGATIVE Urine Urobilinogen 4.0 < = 1.0 MG/DL Urine Leukocyte Esterase NEGATIVE NEGATIVE Urine RBC (Auto) 2+ H NEGATIVE Urine RBC 2-5 H /HPF Urine WBC RARE /HPF Urine Squamous Epithelial Cells RARE /HPF Urine Crystals NONE /LPF Urine Bacteria NEGATIVE /HPF Urine Casts NONE /LPF Urine Mucus NEGATIVE /LPF Urine Culture Indicated NO My Orders Orders - CULLEN HERNANDEZ MD Cbc With Automated Diff (10/18/22 14:33) Protime With Inr (10/18/22 14:33) Partial Thromboplastin Time (10/18/22 14:33) Comprehensive Metabolic Panel (10/18/22 14:33) Fibrin Degradation Products (10/18/22 14:33) Troponin I Jeremy (10/18/22 14:33) Ua Culture If Indicated (10/18/22 14:33) Chest 1 View, Ap/Pa Only (10/18/22 14:33) Ekg Tracing (10/18/22 14:33) Nothing By Mouth (10/18/22 Lunch) Accucheck Stat ONCE (10/18/22 14:33) Ed Iv/Invasive Line Start (10/18/22 14:33) Ed Iv/Invasive Line Start (10/18/22 14:33) Vital Signs Stroke Patient Q15M (10/18/22 14:33) Ct Head Wo-R/O Stroke (10/18/22 14:33) O2 (10/18/22 14:33) Monitor-Rhythm Ecg Trace Only (10/18/22 14:33) Dysphagia Screening Tool Q10MX1 (10/18/22 14:33) Post Thrombolytic Adminstratio (10/18/22 14:33) Ct Angio Head/Neck (10/18/22 15:32) Iohexol Injection (Omnipaque 350 Mg/Ml 1 (10/18/22 16:00) Received Contrast (Hold Metformin- Contr (10/18/22 16:00) Ns (Ivpb) (Sodium Chloride 0.9% Ivpb Bag (10/18/22 16:00) Hydroxyzine Oral (Atarax Tablet) (10/18/22 18:45) Aspirin Tablet (Aspirin Tablet) (10/18/22 18:45) Medications Given in ED Current Medications Medications Dose Ordered Sig/Le Route Start Time Stop Time Status Last Admin Dose Admin Aspirin 325 mg ONCE ONCE PO 10/18/22 18:45 10/18/22 18:46 DC 10/18/22 19:52 325 MG Hydroxyzine HCl 10 mg ONCE ONCE PO 10/18/22 18:45 10/18/22 18:46 DC 10/18/22 19:53 10 MG Iohexol 75 ml ONCE ONCE IV 10/18/22 16:00 10/18/22 16:01 DC 10/18/22 16:01 75 ML Sodium Chloride 100 ml ONCE ONCE IV 10/18/22 16:00 10/18/22 16:01 DC 10/18/22 16:01 80 ML Vital Signs/I&O 10/18/22 10/18/22 10/18/22 10/18/22 14:14 14:16 14:16 19:56 Temp 36.3 Pulse 64 66 Resp 64 18 16 B/P (MAP) 142/70 (94) 142/70 140/62 (88) Pulse Ox 95 95 95 O2 Delivery Room Air Room Air Room Air FiO2 95 Blood Pressure Mean: 94 FSBG Bedside Testing Finger Stick Blood Glucose: 99 Progress Progress Note #1: Time: 15:34 Progress Note Patient was interviewed and examined shortly before arrival. Family was also interviewed. Stroke activation was paged. CT was viewed and interpreted by me by 1440. By my interpretation CT revealed encephalomalacia on the right indicative of prior CVA and chronic subdural hematoma on the left. There did not appear to be any acute hemorrhages. No masses were seen. There was a delayed outside maintenance worker time after the radiologist read of the CT. CT report was eventually reviewed and correlated well with my interpretation. Because the last known well time was questionable and there was conflicting reports between the patient and staff, the last known well time is considered unreliable. Multiple factors excluded the patient from thrombolytic therapy including minor deficits with a low NIH stroke score of 4, history of recent subdural hematomas, and a questionable last known well time. This was discussed with Dr. Tran, stroke neurologist at [facility] at 1530. She is in agreement that patient should not be receiving thrombolytics. In addition to all of these factors, we were near the 4.5-hour ash at the time the official radiologist read was available which would increase the hemorrhage risk. Patient's labs have been reviewed. Creatinine is normal with a GFR of 85. Patient will now have a CT angiogram of the head and neck to proceed with stroke work-up. Progress Note #2: Time: 20:[address] angiogram demonstrated 60 to 70% stenosis of the left carotid at the bulb and internal carotid. This was discussed with Dr. Snyder, stroke neurologist at [facility]. She recommended consultation with the vascular service. Vascular service was consulted via the e commerce merchandising coordinator. Transfer to [facility] was recommended. After lengthy discussion, patient eventually did consent to transfer. No ground transportation was available and [employer] flight crew was employed for the transfer. Patient received aspirin [address] Snyder's recommendation. Shared decision making was used in the process. We involved patient's daughter, , and patient during the discussions. Initial ECG Impression Date: October 18, 2022 Initial ECG Impression Time: 15:03 Initial ECG Rate: 62 Initial ECG Rhythm: Normal Sinus Comment Sinus rhythm with no ST elevation or depression. QTc prolonged at 469 ms. No other abnormal intervals or axis deviation. Diagnostic Imaging Diagonstic Imaging: CT Plain Films/CT/US/NM/MRI: head Comments CT head viewed by me and report reviewed. See report below: NAME: DELMY BASS [facility] REC#: [id number] PT STATUS: REG ER : 1935 PHYSICIAN: CULLEN HERNANDEZ MD ADMIT DATE: 10/18/22/ER Draft Date of Exam:10/18/22 CT HEAD WO-R/O STROKE PROCEDURE: CT head w/o r/o stroke. TECHNIQUE: Multiple contiguous axial images were obtained through the brain without the use of intravenous contrast. Auto Exposure Controls were utilized during the CT exam to meet ALARA standards for radiation dose reduction. [id number]: Slurred speech. COMPARISON: 06/03/2022. FINDINGS: No intracranial hyperdense hemorrhage or space-occupying mass. The chronic left-sided subdural hematoma over the cerebral convexities is unchanged measuring up to 6 mm in thickness. No hydrocephalus or midline shift. Linder-white matter differentiation is well-preserved. No hyperdense vessel sign. No acute skull fracture. Paranasal sinuses and mastoid air cells are clear. IMPRESSION: 1. No acute intracranial hemorrhage or large territorial infarct. 2. Chronic left subdural hematoma is stable to slightly decreased in size since 06/03/2022 exam. Dictated on workstation # [id number] Dict: 10/18/22 1453 Trans: 10/18/22 1511 PJE [id number] Interpreted by: SEAN SILVA MD Diagonstic Imaging: Xray Plain Films/CT/US/NM/MRI: chest Comments NAME: DELMY BASS [facility] REC#: [id number] PT STATUS: REG ER : 1935 PHYSICIAN: CULLEN HERNANDEZ MD ADMIT DATE: 10/18/22/ER Draft Date of Exam:10/18/22 CHEST 1 VIEW, AP/PA ONLY INDICATION: Stroke, slurred speech. COMPARISON: 09/07/2021. TECHNIQUE: Single radiograph of the chest dated October 18, 2022. 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 The cardiac silhouette is within normal limits in size. No significant pulmonary vascular congestion. Background senescent changes of the lungs are again noted. No new focal pulmonary opacity. No pleural effusion. No pneumothorax. No acute osseous abnormality. IMPRESSION: Postsurgical and senescent changes, as described above, without superimposed acute cardiopulmonary abnormality. Dictated on workstation # [id number] Dict: 10/18/22 1505 Trans: 10/18/22 1522 PJE [id number] Interpreted by: MIRIAM WOODARD MD Diagonstic Imaging: CT Plain Films/CT/US/NM/MRI: other (Angiogram head and neck) Comments CT angiogram head and neck report reviewed. See report below: NAME: DEMLY BASS [facility] REC#: [id number] PT STATUS: REG ER : 1935 PHYSICIAN: CULLEN HERNANDEZ MD ADMIT DATE: 10/18/22/ER Signed Date of Exam:10/18/22 CT ANGIO HEAD/NECK PROCEDURE: CT angiography of the head and CT angiography of the neck with and without contrast. TECHNIQUE: Contiguous noncontrast images were obtained from the skull base through the vertex. After intravenous contrast administration, helical CT angiography of the neck was performed. Source data was reformatted into 3D MIP projections. Delayed post contrast acquisition was also obtained. Auto Exposure Controls were utilized during the CT exam to meet ALARA standards for radiation dose reduction. INDICATION: Right-sided facial droop, dysarthria. COMPARISON: Imaging from the same date. FINDINGS: Small extra-axial fluid collection overlying the left cerebral hemisphere is again identified and stable from prior examination. No midline shift, uncal herniation or obstructive hydrocephalus. No enhancing intracranial mass lesion. Bilateral ocular lenses are absent. The orbits are otherwise unremarkable. Background vascular calcifications. Mild mucosal thickening within the left maxillary sinus. The paranasal sinuses are otherwise clear. The calvarium and extracalvarial soft tissues are otherwise unremarkable. The muscles of mastication are unremarkable. Peripharyngeal fat is symmetric and well-maintained. The salivary glands are unremarkable. No significant adenopathy. No focal fluid collection. Rightward nasal septal deviation with associated rightward nasal septal spur. [place] left curvature of the cervical spine. No significant anterolisthesis or retrolisthesis. The patient is partially edentulous. No acute osseous abnormality. No apical pneumothorax. Scattered vascular calcifications are present. A three-vessel aortic arch is present. Approximately 60-70% stenosis of the left carotid bulb/proximal left internal carotid artery is identified based upon NASCET criteria. The large arterial structures within the head and neck are otherwise unremarkable without evidence of occlusion, additional hemodynamically significant stenosis, aneurysm or dissection. IMPRESSION: Stable small extra-axial fluid collection overlying the left cerebral hemisphere, felt to relate to chronic subdural hematoma. Approximately 60-70% stenosis involving the left carotid bulb/proximal left internal carotid artery based upon NASCET criteria. Scattered vascular calcifications. Additional findings as described above. Dictated by: Dictated on workstation # [id number] Dict: 10/18/22 1604 Trans: 10/18/22 1754 PJ [id number] Interpreted by: MIRIAM WOODARD MD Electronically signed by: MIRIAM WOODARD MD 10/18/221753 Departure Impression Primary Impression: Carotid stenosis, left Additional Impressions: Facial droop Dysarthria Disposition: XFER SHT-TRM HOSP Condition: Stable Transfer Transfer Reason: Exceeds level of care Time Spoke to Accepting Phy: 18:02 Transfer Progress Notes Transfer accepted by Dr. Snyder, stroke neurologist at [facility]. Transfer Time: 20:07 Transfer Facility: [facility] Method of Transfer: Air Departure-Patient Inst. Referrals: MEGHANA AMOS MD (PCP/Family) Primary Care Physician Copy Copies To 1: MEGHANA AMOS MD, JOSHUA T MD October 18, 2022 15:33
[2022-10-18] MEDS ORDERED: HOLD METFORMIN - RECEIVED CONTRAST 20 ML VIAL IV SCH (16:00)
[2022-10-18] MEDS ORDERED: IOHEXOL 350 MG/ML 100 ML (OMNIPAQUE 350) VIAL IV ONE (16:00)
[2022-10-18] MEDS ORDERED: NS 100 ML (IVPB) BAG IV ONE (16:00)
--- NOTE | 2022-10-18 16:21 | Diagnostic Imaging Report ---
PROCEDURE: CT angiography of the head and CT angiography of the neck with and without contrast. TECHNIQUE: Contiguous noncontrast images were obtained from the skull base through the vertex. After intravenous contrast administration, helical CT angiography of the neck was performed. Source data was reformatted into 3D MIP projections. Delayed post contrast acquisition was also obtained. Auto Exposure Controls were utilized during the CT exam to meet ALARA standards for radiation dose reduction. INDICATION: Right-sided facial droop, dysarthria. COMPARISON: Imaging from the same date. FINDINGS: Small extra-axial fluid collection overlying the left cerebral hemisphere is again identified and stable from prior examination. No midline shift, uncal herniation or obstructive hydrocephalus. No enhancing intracranial mass lesion. Bilateral ocular lenses are absent. The orbits are otherwise unremarkable. Background vascular calcifications. Mild mucosal thickening within the left maxillary sinus. The paranasal sinuses are otherwise clear. The calvarium and extracalvarial soft tissues are otherwise unremarkable. The muscles of mastication are unremarkable. Peripharyngeal fat is symmetric and well-maintained. The salivary glands are unremarkable. No significant adenopathy. No focal fluid collection. Rightward nasal septal deviation with associated rightward nasal septal spur. [place] left curvature of the cervical spine. No significant anterolisthesis or retrolisthesis. The patient is partially edentulous. No acute osseous abnormality. No apical pneumothorax. Scattered vascular calcifications are present. A three-vessel aortic arch is present. Approximately 60-70% stenosis of the left carotid bulb/proximal left internal carotid artery is identified based upon NASCET criteria. The large arterial structures within the head and neck are otherwise unremarkable without evidence of occlusion, additional hemodynamically significant stenosis, aneurysm or dissection. IMPRESSION: Stable small extra-axial fluid collection overlying the left cerebral hemisphere, felt to relate to chronic subdural hematoma. Approximately 60-70% stenosis involving the left carotid bulb/proximal left internal carotid artery based upon NASCET criteria. Scattered vascular calcifications. Additional findings as described above. Dictated by: Dictated on workstation # [id number]
[2022-10-18 16:56] LABS: BILIRUBIN,URINE NEGATIVE (NEGATIVE); CLARITY,URINE CLEAR; COLOR,URINE YELLOW; GLUCOSE, URINE (UA) NEGATIVE (NEGATIVE); KETONES,URINE NEGATIVE (NEGATIVE); LEUKOCYTE ESTERASE ,URINE NEGATIVE (NEGATIVE); NITRITE,URINE NEGATIVE (NEGATIVE); PH,URINE 5.5 (5-9); PROTEIN,URINE NEGATIVE (NEGATIVE)
[2022-10-18 17:13] LABS: BACTERIA,URINE NEGATIVE /HPF; SQUAMOUS EPITHELIAL CELL,UR RARE /HPF; WBC,URINE RARE /HPF
[2022-10-18] MEDS ORDERED: CLOPIDOGREL 300 MG (PLAVIX) TABLET PO ONE (18:45)
[2022-10-18] MEDS ORDERED: hydrOXYzine (ATARAX) 10 MG TAB PO ONE (18:45)
[2022-10-18] MEDS ORDERED: ASPIRIN 325 MG (5 GR) TABLET PO ONE (18:45)
== END 2022-10-18 20:17 | disposition short-term general hospital (02) ==
LOC: EDUNIT# 14:08 → ER 14:10
DX: R29.810 Facial weakness (principal); I65.22 Occlusion and stenosis of left carotid artery; R47.1 Dysarthria and anarthria; Z86.73 Personal history of transient ischemic attack (TIA), and cerebral infarction without residual deficits; Z95.1 Presence of aortocoronary bypass graft; Z87.820 Personal history of traumatic brain injury
CPT/HCPCS: 36415; 70450; 70496; 70498; 71045; 80053; 81000; 82947; 84484; 85025; 85379; 85610; 85730; 93005; 93041

== ENCOUNTER 2023-02-15 06:54 | Inpatient (IN) | payer MEDICARE, OTHER ==
[~2023-02-15] VITALS: Ht 167.7 cm; Wt 103.3 kg
--- NOTE | 2023-02-15 07:13 | ED General ---
General Chief Complaint: Altered Mental Status Stated Complaint: CONFUSSION Nursing Triage Note: ARRIVED VIA EMS FROM HOME. ACCORDING TO DAUGHTER PT WAS RESTELESS ALL NIGHT WITH SOME CONFUSION. HX OF UTI. Source of Information: Patient, EMS History of Present Illness Date Seen by Provider: Feb 15, 2023 Time Seen by Provider: 06:56 Initial Comments Here by EMS from home with report of altered mental status. Patient does have history of frequent urinary tract infections and this will usually cause some confusion. EMS reports he was able to stand and transfer with some assistance and he is a bit confused. They report that he did have mild fever at home. He lives at home with his daughter who is going to be coming soon. EMS reports otherwise normal vital signs. Patient reports that he just does not feel well and feels a little weak but denies any specific pain. There is a question of dementia. Patient denies chest pain, breathing problems, nausea, vomiting or diarrhea. He denies cough or sore throat. Timing/Duration: 12 Hours, Getting Worse Severity: Moderate Associated Systoms: No Chest Pain, No Cough; Fever/Chills; No Nausea/Vomiting, No Shortness of Air; Weakness Allergies and Home Medications Allergies Coded Allergies: Sulfa (Sulfonamide Antibiotics) (Verified Allergy, Unknown, UNSURE OF REACTION, 07/06/21) Patient Home Medication List Home Medication List Reviewed: Yes Allopurinol (Allopurinol) 100 Mg Tablet, 100 MG PO HS, (Reported) Entered as Reported by: CHASITY CARRANZA on 03/17/22 1441 Amiodarone HCl (Amiodarone HCl) 200 Mg Tablet, 200 MG PO DAILY Prescribed by: SANDRA ORELLANA on 03/25/22 0540 Aspirin (Aspirin EC) 81 Mg Tablet.dr, 81 MG PO DAILY Prescribed by: YURY BLAKELY on 02/15/23 1128 Last Action: New Order Atorvastatin Calcium (Atorvastatin Calcium) 10 Mg Tablet, 10 MG PO DAILY Prescribed by: JOANNE CARUSO on 09/12/21 1036 Bupropion HCl (Bupropion Xl) 150 Mg Tab.er.24h, 150 MG PO DAILY, (Reported) Entered as Reported by: CHASITY CARRANZA on 03/17/22 1441 Buspirone HCl (Buspirone HCl) 5 Mg Tablet, 5 MG PO BID Prescribed by: YURY BLAKELY on 02/15/23 1126 Last Action: New Order Carvedilol (Carvedilol) 3.125 Mg Tablet, 3.125 MG PO BID Prescribed by: YURY BLAKELY on 02/15/23 1126 Last Action: New Order Finasteride (Finasteride) 5 Mg Tablet, 5 MG PO DAILY Prescribed by: JOANNE CARUSO on 09/12/21 1036 Furosemide (Furosemide) 20 Mg Tablet, 20 MG PO DAILY Prescribed by: JOANNE CARUSO on 09/12/21 1036 Hydroxyzine HCl (Hydroxyzine HCl) 25 Mg Tablet, 25 MG PO TID PRN for ANXIETY Prescribed by: YURY BLAKELY on 02/15/23 1131 Last Action: New Order Losartan Potassium (Losartan Potassium) 50 Mg Tablet, 50 MG PO DAILY Prescribed by: SANDRA ORELLANA on 03/25/22 0540 Metoprolol Succinate (Metoprolol Succinate) 25 Mg Tab.er.24h, 25 MG PO DAILY, (Reported) Entered as Reported by: CHASITY CARRANZA on 03/17/22 144 Omeprazole (Omeprazole) 40 Mg Capsule.dr, 40 MG PO DAILY, (Reported) Entered as Reported by: CHASITY CARRANZA on 03/17/22 144 Paroxetine HCl (Paroxetine HCl) 20 Mg Tablet, 20 MG PO DAILY Prescribed by: JOANNE CARUSO on 09/12/21 103 Potassium Chloride (Potassium Chloride) 10 Meq Tab.er.prt, 10 MEQ PO DAILY Prescribed by: JOANNE CARUSO on 09/12/21 103 Quetiapine Fumarate (Seroquel) 50 Mg Tablet, 50 MG PO HS, (Reported) Entered as Reported by: CHASITY CARRANZA on 03/17/22 144 Tamsulosin HCl (Flomax) 0.4 Mg Cap, 0.4 MG PO 1800 Prescribed by: JOANNE CARUSO on 09/12/21 103 Warfarin Sodium (Warfarin Sodium) 5 Mg Tablet, 5 MG PO DAILY @1800, (Reported) Entered as Reported by: CHASITY CARRANZA on 03/17/22 144 Warfarin Sodium (Warfarin Sodium) 10 Mg Tablet, 10 MG PO 1800 ON WEDNESDAY, (Reported) Entered as Reported by: CHASITY CARRANZA on 03/17/22 144 Review of Systems Review of Systems Constitutional: see HPI, fever, weakness EENTM: see HPI Respiratory: No cough, No short of breath Cardiovascular: no symptoms reported Gastrointestinal: No nausea, No vomiting Genitourinary: see HPI Musculoskeletal: no symptoms reported Skin: no symptoms reported Past Qgbwwla-Hkptfg-Fsyyiz Hx Patient Social History Tobacco Use?: No Substance use?: No Immunizations Up To Date Tetanus Booster (TDap): Less than 5yrs PED Vaccines UTD: No First/Initial COVID19 Vaccinat: 08/2020 Second COVID19 Vaccination Demarco: 09/2020 Third COVID19 Vaccination Date: June Seasonal Allergies Seasonal Allergies: No Past Medical History Surgery/Hospitalization HX: TIA, Stroke Surgeries: Yes (MITRAL VALVE REPLACEMENT, lithrotripsy) CABG, Tonsillectomy, Valve Replacement Respiratory: Yes Pulmonary Embolism Currently Using CPAP: No Currently Using BIPAP: No Cardiac: Yes (HX CABG) Atrial Fibrillation, Coronary Artery Disease, Deep Vein Thrombosis, High Cholesterol, Hypertension, Valvular Heart Disease Neurological: Yes Dementia, TIA Sexually Transmitted Disease: No HIV/AIDS: No Genitourinary: Yes Prostate Problems, Kidney Stones Gastrointestinal: Yes Gastroesophageal Reflux, Chronic Constipation Musculoskeletal: No Endocrine: No HEENT: Yes (PARTIAL DENTURE) Cancer: No Psychosocial: Yes Depression Integumentary: No Blood Disorders: No Adverse Reaction/Blood Tranf: No (N/A) Family Medical History Reviewed Nursing Family Hx No Pertinent Family Hx Physical Exam-Suspected Sepsis Physical Exam Vital Signs Vital Signs - First Documented 02/15/23 02/15/23 07:01 09:36 Temp 38.0 Pulse 91 Resp 16 B/P (MAP) 134/91 (105) Pulse Ox 92 O2 Delivery Room Air O2 Flow Rate 2.00 Capillary Refill : Less Than 3 Seconds Blood Pressure Mean: 105 Height, Weight, BMI Height: '" Weight: lbs. oz. kg; 26.00 BMI Method: General Appearance: No Apparent Distress, WD/WN HEENT: PERRL/EOMI, Pharynx Normal Neck: Non Tender, Supple Respiratory: Lungs Clear, Normal Breath Sounds Cardiovascular: Regular Rate, Rhythm, No Murmur Gastrointestinal: Non Tender, Soft Extremity: Non Tender, No Calf Tenderness Neurologic/Psychiatric: Alert, Other (Disoriented to time but knows person place) Skin: normal color, warm/dry Focused Exam Lactate Level 02/15/23 07:10: Lactic Acid Level 1.42 Lactic Acid Level Progress/Results/Core Measures Suspected Sepsis SIRS Temperature: Pulse: 91 Respiratory Rate: 16 Laboratory Tests 02/15/23 07:10: White Blood Count 12.2H Blood Pressure 134 /91 Mean: 105 02/15/23 07:10: Lactic Acid Level 1.42 Laboratory Tests 02/15/23 07:10: Creatinine 0.90, INR Comment 1.1, Platelet Count 183, Total Bilirubin 1.7H Results/Orders Lab Results Laboratory Tests Test 02/15/23 07:00 02/15/23 07:07 02/15/23 07:10 Range/Units Urine Color YELLOW Urine Clarity CLEAR Urine pH 6.0 5-9 Urine Specific [place] 1.025 H 1.016-1.022 Urine Protein TRACE H NEGATIVE Urine Glucose (UA) NEGATIVE NEGATIVE Urine Ketones NEGATIVE NEGATIVE Urine Nitrite NEGATIVE NEGATIVE Urine Bilirubin NEGATIVE NEGATIVE Urine Urobilinogen 1.0 < = 1.0 MG/DL Urine Leukocyte Esterase NEGATIVE NEGATIVE Urine RBC (Auto) NEGATIVE NEGATIVE Urine RBC RARE /HPF Urine WBC RARE /HPF Urine Crystals NONE /LPF Urine Bacteria TRACE /HPF Urine Casts NONE /LPF Urine Mucus SMALL H /LPF Urine Culture Indicated NO Influenza Type A (RT-PCR) Not Detected Not Detecte Influenza Type B (RT-PCR) Not Detected Not Detecte SARS-CoV-2 RNA (RT-PCR) Not Detected Not Detecte White Blood Count 12.2 H 4.3-11.0 10^3/uL Red Blood Count 4.15 L 4.30-5.52 10^6/uL Hemoglobin 12.7 L 13.3-17.7 g/dL Hematocrit 40 40-54 % Mean Corpuscular Volume 95 80-99 fL Mean Corpuscular Hemoglobin 31 25-34 pg Mean Corpuscular Hemoglobin Concent 32 32-36 g/dL Red Cell Distribution Width 14.4 10.0-14.5 % Platelet Count 183 130-400 10^3/uL Mean Platelet Volume 11.5 9.0-12.2 fL Immature Granulocyte % (Auto) 1 % Neutrophils (%) (Auto) 69 42-75 % Lymphocytes (%) (Auto) 13 12-44 % Monocytes (%) (Auto) 14 H 0-12 % Eosinophils (%) (Auto) 2 0-10 % Basophils (%) (Auto) 1 0-10 % Neutrophils # (Auto) 8.4 H 1.8-7.8 10^3/uL Lymphocytes # (Auto) 1.6 1.0-4.0 10^3/uL Monocytes # (Auto) 1.7 H 0.0-1.0 10^3/uL Eosinophils # (Auto) 0.3 0.0-0.3 10^3/uL Basophils # (Auto) 0.1 0.0-0.1 10^3/uL Immature Granulocyte # (Auto) 0.1 0.0-0.1 10^3/uL Prothrombin Time 14.1 12.2-14.7 SEC INR Comment 1.1 0.8-1.4 Activated Partial Thromboplast Time 38 H 24-35 SEC Sodium Level 136 135-145 MMOL/L Potassium Level 3.9 3.6-5.0 MMOL/L Chloride Level 104 98-107 MMOL/L Carbon Dioxide Level 25 21-32 MMOL/L Anion Gap 7 5-14 MMOL/L Blood Urea Nitrogen 19 H 7-18 MG/DL Creatinine 0.90 0.60-1.30 MG/DL Estimat Glomerular Filtration Rate 83 BUN/Creatinine Ratio 21 Glucose Level 99 70-105 MG/DL Lactic Acid Level 1.42 0.50-2.00 MMOL/L Calcium Level 8.9 8.5-10.1 MG/DL Corrected Calcium 9.2 8.5-10.1 MG/DL Total Bilirubin 1.7 H 0.1-1.0 MG/DL Aspartate Amino Transf (AST/SGOT) 20 5-34 U/L Alanine Aminotransferase (ALT/SGPT) 18 0-55 U/L Alkaline Phosphatase 86 40-136 U/L C-Reactive Protein High Sensitivity 4.56 H 0.00-0.50 MG/DL B-Type Natriuretic Peptide 418.3 H <100.0 PG/ML Total Protein 6.9 6.4-8.2 GM/DL Albumin 3.6 3.2-4.5 GM/DL My Orders Orders - SAMMIE MEADE MD Cbc With Automated Diff (02/15/23 07:06) Comprehensive Metabolic Panel (02/15/23 07:06) Blood Culture (02/15/23 07:06) Sputum Culture (02/15/23 07:06) Urinalysis (02/15/23 07:06) Urine Culture (02/15/23 07:06) Protime With Inr (02/15/23 07:06) Partial Thromboplastin Time (02/15/23 07:06) Chest 1 View, Ap/Pa Only (02/15/23 07:06) Ed Iv/Invasive Line Start (02/15/23 07:06) Vital Signs Adult Sepsis Patie Q15M (02/15/23 07:06) O2 (02/15/23 07:06) Remove Rings In Anticipation O (02/15/23 07:06) Lactic Acid Analyzer (02/15/23 07:06) Ns Iv 500 Ml (Ns Iv 500 Ml) (02/15/23 07:15) Hs C Reactive Protein (02/15/23 07:06) Influenza A And B By Pcr (02/15/23 07:06) Covid 19 Inhouse Test (02/15/23 07:06) Cefepime Injection (Cefepime Injection) (02/15/23 08:15) Acetaminophen Tablet (Acetaminophen Ta (02/15/23 08:16) Bnp [place] (02/15/23 08:17) Code/Resuscitation (02/15/23 08:29) Ed Admission (Communication) (02/15/23 09:06) Medications Given in ED Current Medications Medications Dose Ordered Sig/Le Route Start Time Stop Time Status Last Admin Dose Admin Cefepime HCl 1000 mg/Sodium Chloride 50 ml @ 100 mls/hr ONCE ONCE IV 02/15/23 08:15 02/15/23 08:44 DC 02/15/23 08:21 100 MLS/HR Sodium Chloride 500 ml @ 0 mls/hr Q0M ONCE IV 02/15/23 07:15 02/15/23 07:16 DC 02/15/23 07:22 500 MLS/HR Vital Signs/I&O 02/15/23 02/15/23 02/15/23 02/15/23 07:01 08:00 09:15 09:36 Temp 38.0 38.1 38.0 37.1 Pulse 91 76 85 Resp 16 16 20 B/P (MAP) 134/91 (105) 113/65 123/59 (80) Pulse Ox 92 78 93 O2 Delivery Room Air Room Air Nasal Cannula O2 Flow Rate 2.00 02/15/23 02/15/23 02/15/23/4/23 11:05 12:34 15:03 15:51 Temp 36.5 36.5 37.0 Pulse 70 70 86 Resp 20 18 B/P (MAP) 111/59 (76) 152/68 (96) Pulse Ox 94 94 96 93 O2 Delivery Room Air Room Air Nasal Cannula O2 Flow Rate 1.00 Capillary Refill : Less Than 3 Seconds Blood Pressure Mean: 105 Progress Note : Progress Note Seen and evaluated. We will initiate sepsis protocol including IV, labs including CBC, CMP, blood cultures, lactic acid, coags, COVID and influenza screen and UA. We will get chest x-ray. Normal saline 500 mL bolus ordered. Monitor patient. Differential diagnosis includes sepsis, pneumonia, UTI, electrolyte abnormality, dehydration 0830: I have reviewed chest x-ray and he has bilateral lower lobe infiltrates and there may be some vascular congestion so I added BNP. He does have a fever of 100.4 and cefepime 1 g IV was ordered for the pneumonia and concerns of sepsis and I have ordered 1 g of Tylenol as well. CBC does show elevated white count with mild left shift. CMP does show grossly normal electrolytes with normal LFTs and CRP is elevated. Lactic acid is negative. X-ray as above. UA does not show urinary tract infection. Given the sepsis concerns and pneumonia as well as advanced age and frailty, admission is indicated. I did discuss this with Dr. Muse and she accepts patient for admission, inpatient status. I did discuss with patient and daughter and they agree. He requests full code. Currently is on room air with O2 sat 92 to 93%. He is not normally on oxygen. While patient does have findings of sepsis, he does not have severe sepsis or septic shock and does not require high-volume fluid resuscitation. Diagnostic Imaging Diagonstic Imaging: Xray Plain Films/CT/US/NM/MRI: chest Comments [facility], [place] NAME: DELMY BASS [facility] REC#: [id number] PT STATUS: REG ER : 1935 PHYSICIAN: SAMMIE MEADE MD ADMIT DATE: 02/15/23/ER Draft Date of Exam:02/15/23 CHEST 1 VIEW, AP/PA ONLY INDICATION: Fever. TIME OF EXAM: 7:06 AM. COMPARISON: Correlation is made with the prior chest from 10/18/2022. FINDINGS: The heart is enlarged but stable. There are changes of median sternotomy and CABG. There are interstitial infiltrates throughout both lungs, suggestive of either congestive failure or pneumonia. There is no effusion or pneumothorax identified. IMPRESSION: Bilateral interstitial infiltrates, consistent with either congestive failure or pneumonia. Dictated on workstation # [id number] Dict: 02/15/23 0731 Trans: 02/15/23 0742 [id number] Interpreted by: KIMMIE CHAVIRA MD Electronically signed by: Departure Communication (Admissions) Time/Spoke to Admitting Phy: 08:30 Impression Primary Impression: Bilateral pneumonia Qualified Codes: J18.9 - Pneumonia, unspecified organism Additional Impression: Sepsis Qualified Codes: A41.9 - Sepsis, unspecified organism Disposition: ADMITTED INPATIENT Condition: Stable Admissions Decision to Admit Reason: Admit from ER (General) Decision to Admit/Date: Feb 15, 2023 Time/Decision to Admit Time: 08:30 Departure-Patient Inst. Referrals: MEGHANA AMOS MD (PCP/Family) Primary Care Physician Scripts Hydroxyzine HCl (Hydroxyzine HCl) 25 Mg Tablet 25 MG PO TID PRN for ANXIETY for 30 Days, #90 TAB Prov: SANTOS MUSE MD 02/15/23 Aspirin (Aspirin EC) 81 Mg Tablet.dr 81 MG PO DAILY for 30 Days, #30 TAB Prov: SANTOS MUSE MD 02/15/23 Buspirone HCl (Buspirone HCl) 5 Mg Tablet 5 MG PO BID for 30 Days, #60 TAB Prov: SANTOS MUSE MD 02/15/23 Carvedilol (Carvedilol) 3.125 Mg Tablet 3.125 MG PO BID for 30 Days, #60 TAB hold for HR less than 60 Prov: SANTOS MUSE MD 02/15/23 SAMMIE MEADE MD Feb 15, 2023 07:13
[2023-02-15] MEDS ORDERED: NS IV 500 ML 500 ML IV ONE (07:15)
[2023-02-15 07:21] LABS: BASOPHILS # (AUTO) 0.1 10^3/uL (0.0-0.1); BASOPHILS % (AUTO) 1 % (0-10); EOSINOPHILS # (AUTO) 0.3 10^3/uL (0.0-0.3); EOSINOPHILS % (AUTO) 2 % (0-10); HEMATOCRIT 40 % (40-54); HEMOGLOBIN 12.7 g/dL (13.3-17.7); LYMPHOCYTES # (AUTO) 1.6 10^3/uL (1.0-4.0); LYMPHOCYTES % (AUTO) 13 % (12-44); MEAN CORPUSCULAR HEMOGLOBIN 31 pg (25-34); MEAN CORPUSCULAR HGB CONC 32 g/dL (32-36); MEAN CORPUSCULAR VOLUME 95 fL (80-99); MEAN PLATELET VOLUME 11.5 fL (9.0-12.2); MONOCYTES # (AUTO) 1.7 10^3/uL (0.0-1.0); MONOCYTES % (AUTO) 14 % (0-12); NEUTROPHILS # (AUTO) 8.4 10^3/uL (1.8-7.8); NEUTROPHILS % (AUTO) 69 % (42-75); PLATELET COUNT 183 10^3/uL (130-400); WHITE BLOOD COUNT 12.2 10^3/uL (4.3-11.0)
[2023-02-15 07:28] LABS: BACTERIA,URINE TRACE /HPF; BILIRUBIN,URINE NEGATIVE (NEGATIVE); CLARITY,URINE CLEAR; COLOR,URINE YELLOW; GLUCOSE, URINE (UA) NEGATIVE (NEGATIVE); KETONES,URINE NEGATIVE (NEGATIVE); LEUKOCYTE ESTERASE ,URINE NEGATIVE (NEGATIVE); NITRITE,URINE NEGATIVE (NEGATIVE); PROTEIN,URINE TRACE (NEGATIVE); RBC,URINE RARE /HPF; WBC,URINE RARE /HPF
[2023-02-15 07:35] LABS: INR 1.1 (0.8-1.4); PROTHROMBIN TIME PATIENT 14.1 SEC (12.2-14.7)
--- NOTE | 2023-02-15 07:42 | Diagnostic Imaging Report ---
INDICATION: Fever. TIME OF EXAM: 7:06 AM. COMPARISON: Correlation is made with the prior chest from 10/18/2022. FINDINGS: The heart is enlarged but stable. There are changes of median sternotomy and CABG. There are interstitial infiltrates throughout both lungs, suggestive of either congestive failure or pneumonia. There is no effusion or pneumothorax identified. IMPRESSION: Bilateral interstitial infiltrates, consistent with either congestive failure or pneumonia. Dictated by: Dictated on workstation # [id number]
[2023-02-15 07:43] LABS: ALBUMIN 3.6 GM/DL (3.2-4.5); BILIRUBIN,TOTAL 1.7 MG/DL (0.1-1.0); CALCIUM 8.9 MG/DL (8.5-10.1); CREATININE SERUM 0.9 MG/DL (0.60-1.30); POTASSIUM 3.9 MMOL/L (3.6-5.0); TOTAL PROTEIN 6.9 GM/DL (6.4-8.2)
[2023-02-15] MEDS ORDERED: CEFEPIME INJECTION 1,000 MG in NS (IVPB) 50 ML 50 ML IV ONE (08:15)
[2023-02-15] MEDS ORDERED: ACETAMINOPHEN 500 MG TABLET PO STA (08:16)
[2023-02-15 09:36] VITALS: BP 123/59
[2023-02-15] MEDS ORDERED: MELATONIN 3 MG TABLET PO PRN (10:00)
[2023-02-15] MEDS ORDERED: CALCIUM CARBONATE 500 MG CHEW TABLET PO PRN (10:00)
[2023-02-15] MEDS ORDERED: ANTACID SUSPENSION 30 ML UDC PO PRN (10:00)
[2023-02-15] MEDS ORDERED: MILK OF MAGNESIA 400 MG/5 ML 30 ML UDC PO PRN (10:00)
[2023-02-15] MEDS ORDERED: ONDANSETRON INJECTION 4 MG/2 ML (SDV) IV PRN (10:00)
--- NOTE | 2023-02-15 10:25 | Physical Therapy Evaluation ---
PT Evaluation-General Medical Diagnosis Admission Date Feb 15, 2023 at 09:07 Medical Diagnosis: pneumonia/sepsis Onset Date: Feb 15, 2023 Therapy Diagnosis Therapy Diagnosis: General weakness/ debility Precautions Precautions/Isolations: Fall Prevention, Standard Precautions Weight Bear Status Full Weight Bearing Full Weight Bearing Referral Physician: Dr. Diehl Reason for Referral: Evaluation/Treatment Medical History Pertinent Medical History: Atrial Fib, CABG, CAD, Dementia, HTN Current History ED via EMS secondary to AMS, confusion Reviewed History: Yes Social History Home: Single Level Current Living Status: Children Entry Into Home: Stairs With Railing (3) Prior Prior Level of Function SCALE: Activities may be completed with or without assistive devices. 9-Szvpeaqtpm-afpfqxa completes the activity by him/herself with no assistance from a helper. 5-Set-up or Clean-up Assistance-helper sets up or cleans up; patient completes activity. [place] assists only prior to or following the activity. 4-Supervision or Touching Assistance-helper provides verbal cues and/or touching/steadying and/or contact guard assistance as patient completes activity. Assistance may be provided throughout the activity or intermittently. 3-Partial/Moderate Assistance-helper does LESS THAN HALF the effort. [place] lifts, holds or supports trunk or limbs, but provides less than half the effort. 2-Substantial/Maximal Assistance-helper does MORE THAN HALF the effort. [place] lifts or holds trunk or limbs and provides more than half the effort. 4-Pcsddxctd-rpkprj does ALL the effort. Patient does none of the effort to complete the activity. Or, the assistance of 2 or more helpers is required for the patient to complete the activity. If activity was not attempted, code reason: 7-Patient Refused. 9-Not Applicable-not attempted and the patient did not perform the activity before the current illness, exacerbation or injury. 10-Not Attempted due to Environmental Limitations-(lack of equipment, weather restraints, etc.). 88-Not Attempted due to Medical Conditions or Safety Concerns. Bed Mobility: 6 Transfers (B,C,W/C): 6 Gait: 6 Stairs: 4 Prior Devices Use: Walker PT Evaluation-Current Subjective Pt reclined in bed upon arrival to room, daughter present at bedside. reports he is tired, as he just got up to the room. Pt/Family Goals Return home Objective Patient Orientation: Person, Confused Attachments: Oxygen ROM/Strength ROM Lower Extremities grossly WFL Strength Lower Extremities grossly 4/5 with functional mobility Integumentary/Posture Integumentary refer to nursing notes Neuromuscular (Tone, Coordination, Reflexes) grossly intact Transfers Roll Left to Right (QC): 5 Sit to Lying (QC): 5 Lying to Sitting/Side of Bed(Q: 5 Sit to Stand (QC): 4 Pt stood at EOB x 1' before requiring to sit and rest. Repeated x 2 Balance Sitting Static: Normal Sitting Dynamic: Normal Standing Static: Fair Standing Dynamic: Fair Assessment/Needs Pt is a 87 year old male with dx of pneumonia and sepsis which impact his activity tolerance, functional mobility, and endurance. Pt would benefit from skilled PT while in hospital to address limitations and ensure safety upon DC from hospital Rehab Potential: Good PT [place] Goals [facility] Goals PT [facility] Goals Time Frame: Mar 08, 2023 Roll Left & Right (QC): 6 Sit to Lying (QC): 6 Lying-Sitting on Side/Bed(QC): 6 Sit to Stand (QC): 6 Chair/Kmm-sl-Muufw Xfer(QC): 6 Toilet Transfer (QC): 6 Car Transfer (QC): 6 Walk 10 feet (QC): 5 Walk 50ft with 2 Turns (QC): 6 Walk 150 ft (QC): 6 PT Plan Problem List Problem List: Activity Tolerance, Functional Strength, Safety, Balance, Gait, Transfer, Bed Mobility, ROM Treatment/Plan Treatment Plan: Continue Plan of Care Treatment Plan: Bed Mobility, Education, Functional Activity Inocencio, Functional Strength, Gait, Safety, Therapeutic Exercise, Transfers, Other Treatment Duration: Mar 08, 2023 Frequency: 6 times per week Estimated Hrs Per Day: .25 hour per day Patient and/or Family Agrees t: Yes Time Time In: 1005 Time Out: 1020 DATE: Feb 15, 2023 Total Billed Treatment Time: 15 Total Billed Treatment 1 visit, MILTON BYRD PT Feb 15, 2023 10:25
[2023-02-15] MEDS: ENOXAPARIN 40 MG/0.4 ML SYRINGE SC SCH (10:47)
[2023-02-15 11:05] VITALS: BP 111/59
[2023-02-15] MEDS ORDERED: CARV3.122 PO (11:26)
[2023-02-15] MEDS ORDERED: BUSP5TAB59 PO (11:26)
[2023-02-15] MEDS ORDERED: ASPI-1238 PO (11:28)
[2023-02-15] MEDS ORDERED: HYDR-700 PO (11:31)
--- NOTE | 2023-02-15 12:19 | History & Physical-Hospitalist ---
History of Present Illness HPI/Chief Complaint Patient is an 87-year-old male who presented to the emergency department due to fever and altered mental status. He has dementia at baseline and is somewhat confused and is not able to provide much history. He states that his symptoms started yesterday. He of UTIs and so his daughter thought that may be what the issue was. In the emergency department though he was found to have bilateral infiltrates on his chest x-ray and was hypoxic. He did meet sepsis criteria so was admitted for further management. History is limited by his altered mental status and dementia and that there is no family at bedside to supplement. Exam Limitations: no limitations Date Seen 02/15/23 Time Seen by a Provider: 12:00 Attending Physician Jonathan Begum MD PCP Admitting Physician: Santos Muse MD Attending Physician: Santos Muse MD Referring Physician Date of Admission Feb 15, 2023 at 09:07 Home Medications & Allergies Home Medications Reviewed patient Home Medication Reconciliation performed by pharmacy medication reconciliations mechatronics technician and/or nursing. Patients Allergies have been reviewed. Allergies Allergies Coded Allergies Sulfa (Sulfonamide Antibiotics) (Verified Allergy, Unknown, UNSURE OF REACTION, 07/06/21) Past Plrnibm-Pplscj-Hnnhcw Hx Patient Social History Tobacco Use?: No Smoking Status: Former Smoker Smokeless Tobacco Frequency: Never a User Use of E-Cig and/or Vaping dev: No Substance use?: No Alcohol Use?: No Pt feels they are or have been: No Immunizations Up To Date Date of Influenza Vaccine: Jun 20, 2021 First/Initial COVID19 Vaccinat: 08/2020 Second COVID19 Vaccination Demarco: 09/2020 Tetanus Booster (TDap): Unknown Hepatitis A: No Hepatitis B: No PED Vaccines UTD: No Date of Pneumonia Vaccine: Mar 18, 2020 Seasonal Allergies Seasonal Allergies: No Current Status Advance Directives: Yes Advance Directive Location: Home Communicates: Verbally Primary Language: Turkmen Preferred Spoken Language: Turkmen Is interpretation needed?: No Sensory deficits: Hearing impairment Past Medical History Surgeries: CABG, Tonsillectomy, Valve Replacement Pulmonary Embolism Currently Using CPAP: No Currently Using BIPAP: No Atrial Fibrillation, Coronary Artery Disease, Deep Vein Thrombosis, High Chol esterol, Hypertension, Valvular Heart Disease Dementia, TIA Sexually Transmitted Disease: No HIV/AIDS: No Prostate Problems, Kidney Stones Gastroesophageal Reflux, Chronic Constipation Depression Blood Disorders: No Adverse Reaction/Blood Tranf: No (N/A) Family Medical History Reviewed Nursing Family Hx No Pertinent Family Hx Review of Systems Constitutional: see HPI Physical Exam Physical Exam Vital Signs Vital Signs - First Documented 02/15/23 02/15/23 07:01 09:36 Temp 38.0 Pulse 91 Resp 16 B/P (MAP) 134/91 (105) Pulse Ox 92 O2 Delivery Room Air O2 Flow Rate 2.00 Capillary Refill : Less Than 3 Seconds Height, Weight, BMI Height: '" Weight: lbs. oz. kg; 36.73 BMI Method: General Appearance: No Apparent Distress, Chronically ill Respiratory: Crackles (in bases), Decreased Breath Sounds; No Wheezing Cardiovascular: Regular Rate, Rhythm, No Murmur Gastrointestinal: Normal Bowel Sounds, Soft Extremity: Pedal Edema, Swelling Neurologic/Psychiatric: Alert, Disoriented Results Results/Procedures Labs Laboratory Tests 02/16/23 06:03 02/17/23 05:25 Patient resulted labs reviewed. Imaging: Reviewed Imaging Report Imaging [facility], [place] NAME: DELMY BASS [facility] REC#: [id number] PT STATUS: REG ER : 1935 PHYSICIAN: SAMMIE MEADE MD ADMIT DATE: 02/15/23/ER Draft Date of Exam:02/15/23 CHEST 1 VIEW, AP/PA ONLY INDICATION: Fever. TIME OF EXAM: 7:06 AM. COMPARISON: Correlation is made with the prior chest from 10/18/2022. FINDINGS: The heart is enlarged but stable. There are changes of median sternotomy and CABG. There are interstitial infiltrates throughout both lungs, suggestive of either congestive failure or pneumonia. There is no effusion or pneumothorax identified. IMPRESSION: Bilateral interstitial infiltrates, consistent with either congestive failure or pneumonia. Dictated on workstation # [id number] Dict: 02/15/2331 Trans: 02/15/23 0742 [id number] Interpreted by: KIMMIE CHAVIRA MD Electronically signed by: Assessment/Plan Admission Diagnosis sepsis Admission Status: Inpatient Order (span 2 midnights) Reason for Inpatient Admission: see below Assessment and Plan Sepsis due to Pneumonia Acute hypoxic respiratory failure Sating 78% on room air Leukocytosis with fever b/l infiltrates on CXR Continue IV abx Await cultures MAT protocol Dementia HTN HLD BPH History of TAVR Anticoagulated on coumadin Continue home meds as able DVT ppx: SANTOS Sosa MD Feb 15, 2023 12:19
[2023-02-15 12:34] VITALS: BP 111/59
[2023-02-15] MEDS: FUROSEMIDE 20 MG TABLET PO SCH (13:04)
[2023-02-15] MEDS: CEFEPIME INJECTION 1,000 MG in NS (IVPB) 50 ML 50 ML IV SCH ×2 (13:04→20:50)
[2023-02-15] MEDS: RT-Ipratropium/Albuterol NEB 3 ML VIAL INH SCH ×2 (15:00→22:03)
[2023-02-15 15:51] VITALS: BP 152/68
[2023-02-15 20:30] VITALS: BP 134/67
[2023-02-15] MEDS: busPIRone 5 MG TABLET PO SCH (20:50)
[2023-02-15] MEDS: carvediloL 3.125 MG TABLET PO SCH (20:50)
[2023-02-15 23:48] VITALS: BP 119/66
[2023-02-16] MEDS: CEFEPIME INJECTION 1,000 MG in NS (IVPB) 50 ML 50 ML IV SCH ×4 (02:27→20:07)
[2023-02-16 03:33] VITALS: BP 138/63
[2023-02-16 06:15] LABS: BASOPHILS # (AUTO) 0.1 10^3/uL (0.0-0.1); BASOPHILS % (AUTO) 1 % (0-10); EOSINOPHILS # (AUTO) 0.1 10^3/uL (0.0-0.3); EOSINOPHILS % (AUTO) 1 % (0-10); HEMATOCRIT 38 % (40-54); HEMOGLOBIN 12.6 g/dL (13.3-17.7); LYMPHOCYTES # (AUTO) 1.3 10^3/uL (1.0-4.0); LYMPHOCYTES % (AUTO) 10 % (12-44); MEAN CORPUSCULAR HEMOGLOBIN 32 pg (25-34); MEAN CORPUSCULAR HGB CONC 34 g/dL (32-36); MEAN CORPUSCULAR VOLUME 94 fL (80-99); MEAN PLATELET VOLUME 11.4 fL (9.0-12.2); MONOCYTES # (AUTO) 1.8 10^3/uL (0.0-1.0); MONOCYTES % (AUTO) 13 % (0-12); NEUTROPHILS # (AUTO) 9.8 10^3/uL (1.8-7.8); NEUTROPHILS % (AUTO) 75 % (42-75); PLATELET COUNT 191 10^3/uL (130-400); WHITE BLOOD COUNT 13.2 10^3/uL (4.3-11.0)
[2023-02-16 06:45] LABS: ALBUMIN 3.4 GM/DL (3.2-4.5); BILIRUBIN,TOTAL 2.1 MG/DL (0.1-1.0); CALCIUM 8.7 MG/DL (8.5-10.1); CREATININE SERUM 0.87 MG/DL (0.60-1.30); POTASSIUM 3.6 MMOL/L (3.6-5.0); TOTAL PROTEIN 6.5 GM/DL (6.4-8.2)
[2023-02-16 07:31] VITALS: BP 131/72
[2023-02-16] MEDS: RT-Ipratropium/Albuterol NEB 3 ML VIAL INH SCH ×3 (07:41→20:32)
[2023-02-16] MEDS: ACETAMINOPHEN 325 MG TABLET PO PRN ×2 (08:31→20:08)
[2023-02-16] MEDS: FUROSEMIDE 20 MG TABLET PO SCH (08:31)
[2023-02-16] MEDS: carvediloL 3.125 MG TABLET PO SCH ×2 (08:31→20:07)
[2023-02-16] MEDS: busPIRone 5 MG TABLET PO SCH ×2 (08:31→20:07)
[2023-02-16] MEDS: ENOXAPARIN 40 MG/0.4 ML SYRINGE SC SCH (08:32)
--- NOTE | 2023-02-16 10:40 | Progress Note - Hospitalist ---
Subjective HPI/CC On Admission Date Seen by Provider: Feb 16, 2023 Patient is an 87-year-old male who presented to the emergency department due to fever and altered mental status. He has dementia at baseline and is somewhat confused and is not able to provide much history. He states that his symptoms started yesterday. He of UTIs and so his daughter thought that may be what the issue was. In the emergency department though he was found to have bilateral infiltrates on his chest x-ray and was hypoxic. He did meet sepsis criteria so was admitted for further management. History is limited by his altered mental status and dementia and that there is no family at bedside to supplement. Subjective/Events-last exam Pt reports doing a little better today. No complaints. Still confused. No family at bedside. RN reports she knows him from the community and he is not at his baseline but doing better than when he came in. Focused Exam Lactate Level 02/15/23 07:10: Lactic Acid Level 1.42 Objective Exam Vital Signs Vital Signs Date Time Temp Pulse Resp B/P (MAP) Pulse Ox O2 Delivery O2 Flow Rate FiO2 02/16/23 08:00 2 Nasal Cannula 02/16/23 07:43 2.00 02/16/23 07:31 37.6 87 18 131/72 (91) Capillary Refill : Less Than 3 Seconds General Appearance: No Apparent Distress, Chronically ill Respiratory: Lungs Clear, No Respiratory Distress Cardiovascular: Regular Rate, Rhythm, No Murmur Neurologic/Psychiatric: Alert, Oriented x3 Results/Procedures Lab Laboratory Tests 02/16/23 06:03 Patient resulted labs reviewed. Imaging: Reviewed Imaging Report Assessment/Plan Assessment and Plan Assess & Plan/Chief Complaint Sepsis due to Pneumonia Acute hypoxic respiratory failure Wean oxygen as able No fever since 02/15 b/l infiltrates on CXR Continue IV abx Await cultures- still pending MAT protocol PT/OT Dementia HTN HLD BPH History of TAVR h/o subdural hemoatoma Continue home meds as able when med rec done DVT ppx: SANTOS Sosa MD Feb 16, 2023 10:40
--- NOTE | 2023-02-16 11:30 | Physical Therapy Daily Note ---
PT Daily Note-Current Pain Section J - Health Conditions 1. Rarely or not at all 2. Occasionally 3. Frequently 4. Almost constantly 8. Unable to answer Pain Effect on Sleep: 8 Pain Interference with Therapy: 8 Pain Interference w/Day-to-Day: 8 Mental Status Patient Orientation: Confused Attachments: Oxygen Transfers SCALE: Activities may be completed with or without assistive devices. 0-Nrpnmqmqox-izmjomk completes the activity by him/herself with no assistance from a helper. 5-Set-up or Clean-up Assistance-helper sets up or cleans up; patient completes activity. [place] assists only prior to or following the activity. 4-Supervision or Touching Assistance-helper provides verbal cues and/or [place]/steadying and/or contact guard assistance as patient completes activity. Assistance may be provided throughout the activity or intermittently. 3-Partial/Moderate Assistance-helper does LESS THAN HALF the effort. [place] lifts, holds or supports trunk or limbs, but provides less than half the effort. 2-Substantial/Maximal Assistance-helper does MORE THAN HALF the effort. [place] lifts or holds trunk or limbs and provides more than half the effort. 0-Sutvjiiqq-wdafgx does ALL the effort. Patient does none of the effort to complete the activity. Or, the assistance of 2 or more helpers is required for the patient to complete the activity. If activity was not attempted, code reason: 7-Patient Refused. 9-Not Applicable-not attempted and the patient did not perform the activity before the current illness, exacerbation or injury. 10-Not Attempted due to Environmental Limitations-(lack of equipment, weather restraints, etc.). 88-Not Attempted due to Medical Conditions or Safety Concerns. Roll Left & Right (QC): 6 Weight Bearing Full Weight Bearing Full Weight Bearing Exercises Supine Ex: Ankle pumps, Quad Set, Heel Slides, Straight leg raise, Hip abd/add Supine Reps: 15 (x 2sets) Assessment Patient tolerated treatment well and remains in bed per RN request due to patient extreme confusion. PT to increase activity as tolerated by patient. PT Histology Assistant Goals Intermediate Goals PT Intermediate Goals Time Frame: Mar 08, 2023 Roll Left & Right (QC): 6 Sit to Lying (QC): 6 Lying-Sitting on Side/Bed(QC): 6 Sit to Stand (QC): 6 Chair/Usm-wn-Dqzcc Xfer(QC): 6 Toilet Transfer (QC): 6 Car Transfer (QC): 6 Walk 10 feet (QC): 5 Walk 50ft with 2 Turns (QC): 6 Walk 150 ft (QC): 6 PT Plan Treatment/Plan Treatment Plan: Continue Plan of Care Treatment Plan: Bed Mobility, Education, Functional Activity Inocencio, Functional Strength, Gait, Safety, Therapeutic Exercise, Transfers, Other Treatment Duration: Mar 08, 2023 Frequency: 6 times per week Estimated Hrs Per Day: .25 hour per day Patient and/or Family Agrees t: Yes Time Time In: 1030 Time Out: 1040 DATE: Feb 16, 2023 Total Billed Treatment Time: 10 Total Billed Treatment 1 visit EX 10 min NENO BAILEY PT Feb 16, 2023 11:30
[2023-02-16 12:44] VITALS: BP 111/65
--- NOTE | 2023-02-16 14:15 | Occupational Therapy Eval ---
OT Evaluation-General/PLF Medical Diagnosis Admission Date Feb 15, 2023 at 09:07 Medical Diagnosis: pneumonia/sepsis Onset Date: Feb 15, 2023 Therapy Diagnosis Therapy Diagnosis: weakness, confusion Precautions Precautions/Isolations: Fall Prevention, Standard Precautions Safety Interventions: Bed Exit Alarm Referral Physician: Dr. Diehl Referral Reason: Evaluation/Treatment Medical History Pertinent Medical History: Atrial Fib, CABG, CAD, Dementia, HTN Social History Home: Single Level Current Living Status: Children Entry Into Home: Stairs With Railing (3) Patient previously lived at home, rehab stay at [facility]. ADL-Prior Level of Function SCALE: Activities may be completed with or without assistive devices. 6-Dmtclrxfbb-pqlspbt completes the activity by him/herself with no assistance from a helper. 5-Set-up or Clean-up Assistance-helper sets up or cleans up; patient completes activity. [place] assists only prior to or following the activity. 4-Supervision or Touching Assistance-helper provides verbal cues and/or touching/steadying and/or contact guard assistance as patient completes activity. Assistance may be provided throughout the activity or intermittently. 3-Partial/Moderate Assistance-helper does LESS THAN HALF the effort. [place] lifts, holds or supports trunk or limbs, but provides less than half the effort. 2-Substantial/Maximal Assistance-helper does MORE THAN HALF the effort. [place] lifts or holds trunk or limbs and provides more than half the effort. 8-Rhqhngopq-qyjeni does ALL the effort. Patient does none of the effort to complete the activity. Or, the assistance of 2 or more helpers is required for the patient to complete the activity. If activity was not attempted, code reason: 7-Patient Refused. 9-Not Applicable-not attempted and the patient did not perform the activity before the current illness, exacerbation or injury. 10-Not Attempted due to Environmental Limitations-(lack of equipment, weather restraints, etc.). 88-Not Attempted due to Medical Conditions or Safety Concerns. Self Care: Needed Some Help Functional Cognition: Needed Some Help Drive Self: No OT Current Status Subjective state of confusion. Mental Status/Objective Patient Orientation: Person, Confused Attachments: Oxygen Current Glasses/Contacts: Yes Hearing Aids: No Dentures/Partials: Yes (does not wear, missing several teeth) Hand Dominance: Right Upper Extremity ROM BUE ROM WFLS Upper Extremity Coordination IMPAIRED Upper Extremity Strength -4/5 with demonstration of MMT ADL-Treatment ADL-Current Bed alarm activated, Requires telesitter at all times, sun downing occurs Eating (QC): 5 Oral Hygiene (QC): 4 Shower/Bathe Self (QC): 2 (bed bathe sponge w/ bath clothes.) Upper Body Dressing (QC): 7 (refuses UB garments) Lower Body Dressing (QC): 2 (diposable brief only) On/Off Footwear (QC): 1 (OT completed.) Toileting Hygiene (QC): 3 Education OT Patient Education: Correct positioning, Home exercise program, Modified ADL techniques, Progress toward Goal/Update tx plan, Purpose of tx/functional activities, Reviewed precautions, Rehab process, Safety issues, Transfer techniques Teaching Recipient: Patient Teaching Methods: Discussion Response to Teaching: Verbalize Understanding, Reinforcement Needed OT Prison Goals Prison Goals Eating (QC): 5 Oral Hygiene (QC): 5 Toileting Hygiene (QC): 5 Shower/Bathe Self (QC): 4 Upper Body Dressing (QC): 5 Lower Body Dressing (QC): 4 On/Off Footwear (QC): 4 1=Demonstrate adherence to instructed precautions during ADL tasks. 2=Patient will verbalize/demonstrate understanding of assistive devices/modifications for ADL. 3=Patient will improve strength/tolerance for activity to enable patient to perform ADL's. OT Education/Plan Problem List/Assessment Assessment: Decreased Activ Tolerance, Decreased Safety Aware, Decreased UE Strength, Impaired Cognition, Impaired Coordination, Impaired Funct Balance, Impaired Self-Care Skills, Restricted Funct UE ROM Discharge Recommendations Plan/Recommendations: Continue POC Treatment Plan/Plan of Care Patient would benefit from OT for education, treatment and training to promote independence in ADL's, mobility, safety and/or upper extremity function for ADL's. Plan of Care: ADL Retraining, Cognitive Retraining, Concurrent Therapy, Functional Mobility, UE Funct Exercise/Act, UE Neuromus Re-Ed/Coord Treatment Duration: Feb 20, 2023 Frequency: 3 times per week (3-5 times per week) Estimated Hrs Per Day: .25 hour per day Rehab Potential: Good Returned to bed following bed bath, patient scoots self in bed to HOB w/ verbal instruction. all needs met Time Start Time: 13:05 Stop Time: 13:25 DATE: Feb 16, 2023 Total Time Billed (hr/min): 20 Billed Treatment Time EVM 20 min TYRON RICKS OT Feb 16, 2023 14:15
[2023-02-16] MEDS ORDERED: CARV3.122 PO (14:51)
[2023-02-16] MEDS ORDERED: MAGN400O7 PO (14:51)
[2023-02-16] MEDS ORDERED: POLY17PO6 PO (14:51)
[2023-02-16] MEDS ORDERED: CARB-254 OP (14:51)
[2023-02-16] MEDS ORDERED: ATOR40TA70 PO (14:51)
[2023-02-16] MEDS ORDERED: ACHD5005 PO (14:51)
[2023-02-16] MEDS ORDERED: ASPI-999 PO (14:51)
[2023-02-16] MEDS ORDERED: FURO20TA4 PO (14:51)
[2023-02-16] MEDS ORDERED: BUSP5TAB59 PO (14:51)
[2023-02-16 15:42] VITALS: BP 142/62
[2023-02-16 20:22] VITALS: BP 144/66
[2023-02-17 00:05] VITALS: BP 126/68
[2023-02-17] MEDS: RT-Ipratropium/Albuterol NEB 3 ML VIAL INH SCH ×4 (02:46→23:51)
[2023-02-17] MEDS: CEFEPIME INJECTION 1,000 MG in NS (IVPB) 50 ML 50 ML IV SCH ×4 (02:56→22:00)
[2023-02-17 03:29] VITALS: BP 123/93
[2023-02-17 05:51] LABS: BASOPHILS # (AUTO) 0.1 10^3/uL (0.0-0.1); BASOPHILS % (AUTO) 1 % (0-10); EOSINOPHILS # (AUTO) 0.3 10^3/uL (0.0-0.3); EOSINOPHILS % (AUTO) 3 % (0-10); HEMATOCRIT 39 % (40-54); HEMOGLOBIN 12.6 g/dL (13.3-17.7); LYMPHOCYTES # (AUTO) 1.2 10^3/uL (1.0-4.0); LYMPHOCYTES % (AUTO) 10 % (12-44); MEAN CORPUSCULAR HEMOGLOBIN 31 pg (25-34); MEAN CORPUSCULAR HGB CONC 32 g/dL (32-36); MEAN CORPUSCULAR VOLUME 95 fL (80-99); MONOCYTES # (AUTO) 1.5 10^3/uL (0.0-1.0); MONOCYTES % (AUTO) 12 % (0-12); NEUTROPHILS # (AUTO) 9.1 10^3/uL (1.8-7.8); NEUTROPHILS % (AUTO) 74 % (42-75); PLATELET COUNT 198 10^3/uL (130-400); WHITE BLOOD COUNT 12.2 10^3/uL (4.3-11.0)
[2023-02-17 06:22] LABS: ALBUMIN 3.3 GM/DL (3.2-4.5); BILIRUBIN,TOTAL 1.8 MG/DL (0.1-1.0); CALCIUM 8.6 MG/DL (8.5-10.1); CREATININE SERUM 0.86 MG/DL (0.60-1.30); POTASSIUM 3.5 MMOL/L (3.6-5.0); TOTAL PROTEIN 6.6 GM/DL (6.4-8.2)
[2023-02-17 07:59] VITALS: BP 130/63
--- NOTE | 2023-02-17 10:10 | Progress Note - Hospitalist ---
Subjective HPI/CC On Admission Date Seen by Provider: Feb 17, 2023 Patient is an 87-year-old male who presented to the emergency department due to fever and altered mental status. He has dementia at baseline and is somewhat confused and is not able to provide much history. He states that his symptoms started yesterday. He of UTIs and so his daughter thought that may be what the issue was. In the emergency department though he was found to have bilateral infiltrates on his chest x-ray and was hypoxic. He did meet sepsis criteria so was admitted for further management. History is limited by his altered mental status and dementia and that there is no family at bedside to supplement. Subjective/Events-last exam Pt reports doing well. No complaints. No family at bedside. Focused Exam Lactate Level 02/15/23 07:10: Lactic Acid Level 1.42 Objective Exam Vital Signs Vital Signs Date Time Temp Pulse Resp B/P (MAP) Pulse Ox O2 Delivery O2 Flow Rate FiO2 02/17/23 07:59 37.1 94 16 130/63 (85) 91 Nasal Cannula 1.50 Capillary Refill : Less Than 3 Seconds General Appearance: No Apparent Distress, Chronically ill Respiratory: Lungs Clear, No Respiratory Distress Cardiovascular: Regular Rate, Rhythm, No Murmur Neurologic/Psychiatric: Alert, Oriented x3 Results/Procedures Lab Laboratory Tests 02/17/23 05:25 Patient resulted labs reviewed. Imaging: Reviewed Imaging Report Assessment/Plan Assessment and Plan Assess & Plan/Chief Complaint Sepsis due to Pneumonia Acute hypoxic respiratory failure Wean oxygen as able- dwon to 1lpm No fever since 0915 02/15 b/l infiltrates on CXR Continue IV abx Blood cx negative MAT protocol PT/OT Dementia HTN HLD BPH History of TAVR h/o subdural hemoatoma Continue home meds as appropriate DVT ppx: SANTOS Sosa MD Feb 17, 2023 10:10
--- NOTE | 2023-02-17 10:14 | Occupational Ther Daily Note ---
OT Current Status-Daily Note Subjective Up in recliner in gown and saturated disposable brief, patient unaware of incont issue. Agrees to OT Pain Numeric Pain Scale: 0-No Pain Mental Status/Objective Patient Orientation: Person, Place Attachments: Oxygen ADL-Treatment Ambulated w/ OT to restroom w/ FWW and gait belt, 02 tube managed by 02. BM incont and urine incont. Transfer to commode in assist w/ VCs for hand placement on GBs. OT removed breif as was falling down legs. sponge bath layla area while on commode. Standing at sink for oral/face grooming. Therapy Code Descriptions/Definitions Functional [place] Measure: 0=Not Assessed/NA 4=Minimal Assistance 1=Total Assistance 5=Supervision or Setup 2=Maximal Assistance 6=Modified [place] 3=Moderate Assistance 7=Complete IndependenceSCALE: Activities may be completed with or without assistive devices. 9-Yzrocrtmio-nmwmjtk completes the activity by him/herself with no assistance from a helper. 5-Set-up or Clean-up Assistance-helper sets up or cleans up; patient completes activity. [place] assists only prior to or following the activity. 4-Supervision or Touching Assistance-helper provides verbal cues and/or touching/steadying and/or contact guard assistance as patient completes activity. Assistance may be provided throughout the activity or intermittently. 3-Partial/Moderate Assistance-helper does LESS THAN HALF the effort. [place] lifts, holds or supports trunk or limbs, but provides less than half the effort. 2-Substantial/Maximal Assistance-helper does MORE THAN HALF the effort. [place] lifts or holds trunk or limbs and provides more than half the effort. 9-Owpxprcac-evprlo does ALL the effort. Patient does none of the effort to complete the activity. Or, the assistance of 2 or more helpers is required for the patient to complete the activity. If activity was not attempted, code reason: 7-Patient Refused. 9-Not Applicable-not attempted and the patient did not perform the activity before the current illness, exacerbation or injury. 10-Not Attempted due to Environmental Limitations-(lack of equipment, weather restraints, etc.). 88-Not Attempted due to Medical Conditions or Safety Concerns. Eating (QC): 6 Oral Hygiene (QC): 4 Bathing Location: Buttocks, Perineal Area Shower/Bathe Self (QC): 3 Lower Body Dressing (QC): 3 Toileting Hygiene (QC): 3 Toilet Transfer (QC): 3 Education OT Patient Education: Correct positioning, Exercise program, Modified ADL techniques, Progress toward Goal/Update tx plan, Purpose of tx/functional activities, Reviewed precautions, Rehab process, Safety issues, Transfer techniques, Use of adapted equipment Teaching Recipient: Patient Teaching Methods: Demonstration, Discussion Response to Teaching: Reinforcement Needed OT Cable Splicer Helper Goals Retirement Goals Eating (QC): 5 Oral Hygiene (QC): 5 Toileting Hygiene (QC): 5 Shower/Bathe Self (QC): 4 Upper Body Dressing (QC): 5 Lower Body Dressing (QC): 4 On/Off Footwear (QC): 4 1=Demonstrate adherence to instructed precautions during ADL tasks. 2=Patient will verbalize/demonstrate understanding of assistive devices/modifications for ADL. 3=Patient will improve strength/tolerance for activity to enable patient to perform ADL's. OT Education/Plan Problem List/Assessment Assessment: Decreased Activ Tolerance, Decreased Safety Aware, Decreased UE Strength, Impaired Cognition, Impaired Funct Balance, Impaired Self-Care Skills Discharge Recommendations Plan/Recommendations: Continue POC Treatment Plan/Plan of Care Treatment,Training & Education: Yes Patient would benefit from OT for education, treatment and training to promote independence in ADL's, mobility, safety and/or upper extremity function for ADL's. Plan of Care: ADL Retraining, Cognitive Retraining, Concurrent Therapy, F unctional Mobility, UE Funct Exercise/Act, UE Neuromus Re-Ed/Coord Treatment Duration: Feb 20, 2023 Frequency: 3 times per week (3-5 times per week) Estimated Hrs Per Day: .25 hour per day Rehab Potential: Good Chair alarm activated. All needs met Time Start Time: 09:19 Stop Time: 09:39 DATE: Feb 17, 2023 Total Time Billed (hr/min): 20 Billed Treatment Time ADL 20 min TYRON RICKS OT Feb 17, 2023 10:14
[2023-02-17] MEDS: FUROSEMIDE 20 MG TABLET PO SCH (11:08)
[2023-02-17] MEDS: carvediloL 3.125 MG TABLET PO SCH ×2 (11:08→22:00)
[2023-02-17] MEDS: busPIRone 5 MG TABLET PO SCH ×2 (11:08→22:00)
[2023-02-17 11:53] VITALS: BP 113/71
--- NOTE | 2023-02-17 13:51 | Physical Therapy Daily Note ---
PT Daily Note-Current Subjective Pt sitting in recliner upon arrival. Pt agrees to PT. Pain Location: No Pain Reported Section J - Health Conditions 1. Rarely or not at all 2. Occasionally 3. Frequently 4. Almost constantly 8. Unable to answer Pain Effect on Sleep: 8 Pain Interference with Therapy: 8 Pain Interference w/Day-to-Day: 8 Mental Status Patient Orientation: Person, Confused, Place Transfers SCALE: Activities may be completed with or without assistive devices. 3-Lxopsoomkv-sghrvtg completes the activity by him/herself with no assistance from a helper. 5-Set-up or Clean-up Assistance-helper sets up or cleans up; patient completes activity. [place] assists only prior to or following the activity. 4-Supervision or Touching Assistance-helper provides verbal cues and/or touching/steadying and/or contact guard assistance as patient completes activity. Assistance may be provided throughout the activity or intermittently. 3-Partial/Moderate Assistance-helper does LESS THAN HALF the effort. [place] lifts, holds or supports trunk or limbs, but provides less than half the effort. 2-Substantial/Maximal Assistance-helper does MORE THAN HALF the effort. [place] lifts or holds trunk or limbs and provides more than half the effort. 5-Qxvdvcupu-oqmcay does ALL the effort. Patient does none of the effort to complete the activity. Or, the assistance of 2 or more helpers is required for the patient to complete the activity. If activity was not attempted, code reason: 7-Patient Refused. 9-Not Applicable-not attempted and the patient did not perform the activity before the current illness, exacerbation or injury. 10-Not Attempted due to Environmental Limitations-(lack of equipment, weather restraints, etc.). 88-Not Attempted due to Medical Conditions or Safety Concerns. Weight Bearing Full Weight Bearing Full Weight Bearing Exercises Seated Therapy Exercises: Ankle pumps, Long arc quads, Hip flexion, Hip abd/add, Glut set Seated Reps: 15 Treatments Pt completes Seated EX at recliner before taking RB. All needs met, call light in hand. Assessment Current Status: Good Progress Pt able to follow directions better during this tx than previous tx. PT Woodwork Salvage Inspector Goals Skilled Nursing Goals PT Skilled Nursing Goals Time Frame: Mar 08, 2023 Roll Left & Right (QC): 6 Sit to Lying (QC): 6 Lying-Sitting on Side/Bed(QC): 6 Sit to Stand (QC): 6 Chair/Tbv-ds-Noehx Xfer(QC): 6 Toilet Transfer (QC): 6 Car Transfer (QC): 6 Walk 10 feet (QC): 5 Walk 50ft with 2 Turns (QC): 6 Walk 150 ft (QC): 6 PT Plan Problem List Problem List: Activity Tolerance, Functional Strength Treatment/Plan Treatment Plan: Continue Plan of Care Treatment Plan: Bed Mobility, Education, Functional Activity Inocencio, Functional Strength, Gait, Safety, Therapeutic Exercise, Transfers, Other Treatment Duration: Mar 08, 2023 Frequency: 6 times per week Estimated Hrs Per Day: .25 hour per day Patient and/or Family Agrees t: Yes Time Time In: 1305 Time Out: 1325 DATE: Feb 17, 2023 Total Billed Treatment Time: 20 Total Billed Treatment 1, EX (20m) JAVIER COPELAND PTA Feb 17, 2023 13:51
[2023-02-17 16:00] VITALS: BP 126/75
[2023-02-17 20:00] VITALS: BP 136/68
[2023-02-18] VITALS (7 sets, daily range): BP systolic 113–138; BP diastolic 72–90
[2023-02-18] MEDS ORDERED: RT-Ipratropium/Albuterol NEB 3 ML VIAL INH PRN (01:15)
[2023-02-18] MEDS: CEFEPIME INJECTION 1,000 MG in NS (IVPB) 50 ML 50 ML IV SCH ×2 (05:22→12:11)
[2023-02-18 05:37] LABS: BASOPHILS # (AUTO) 0.1 10^3/uL (0.0-0.1); BASOPHILS % (AUTO) 1 % (0-10); EOSINOPHILS # (AUTO) 0.5 10^3/uL (0.0-0.3); EOSINOPHILS % (AUTO) 5 % (0-10); HEMATOCRIT 37 % (40-54); HEMOGLOBIN 12.1 g/dL (13.3-17.7); LYMPHOCYTES # (AUTO) 1.7 10^3/uL (1.0-4.0); LYMPHOCYTES % (AUTO) 16 % (12-44); MEAN CORPUSCULAR HEMOGLOBIN 31 pg (25-34); MEAN CORPUSCULAR HGB CONC 32 g/dL (32-36); MEAN CORPUSCULAR VOLUME 94 fL (80-99); MEAN PLATELET VOLUME 11.5 fL (9.0-12.2); MONOCYTES # (AUTO) 1.5 10^3/uL (0.0-1.0); MONOCYTES % (AUTO) 13 % (0-12); NEUTROPHILS % (AUTO) 65 % (42-75); PLATELET COUNT 238 10^3/uL (130-400); WHITE BLOOD COUNT 10.8 10^3/uL (4.3-11.0)
[2023-02-18 05:52] LABS: ALBUMIN 3.1 GM/DL (3.2-4.5); BILIRUBIN,TOTAL 1.5 MG/DL (0.1-1.0); CALCIUM 8.5 MG/DL (8.5-10.1); CREATININE SERUM 0.81 MG/DL (0.60-1.30); POTASSIUM 3.3 MMOL/L (3.6-5.0); TOTAL PROTEIN 6.3 GM/DL (6.4-8.2)
[2023-02-18] MEDS: carvediloL 3.125 MG TABLET PO SCH (09:19)
[2023-02-18] MEDS: busPIRone 5 MG TABLET PO SCH (09:19)
[2023-02-18] MEDS: FUROSEMIDE 20 MG TABLET PO SCH (09:19)
--- NOTE | 2023-02-18 11:06 | Discharge Summary ---
Diagnosis/Chief Complaint Date of Admission Feb 15, 2023 at 09:07 Date of Discharge Admission Diagnosis sepsis Primary Care Jonathan Begum MD Discharge Summary Discharge Physical Exam Allergies: Coded Allergies: Sulfa (Sulfonamide Antibiotics) (Verified Allergy, Unknown, UNSURE OF REACTION, 07/06/21) Vitals & I&Os Vital Signs Date Time Temp Pulse Resp B/P (MAP) Pulse Ox O2 Delivery O2 Flow Rate FiO2 02/18/23 11:48 36.2 87 16 138/80 (99) 94 Nasal Cannula 2.00 General Appearance: No Apparent Distress, Chronically ill Respiratory: Lungs Clear, No Respiratory Distress Cardiovascular: Regular Rate, Rhythm Gastrointestinal: Normal Bowel Sounds, Soft Neurologic/Psychiatric: Alert Hospital Course Patient was admitted to the hospital secondary to sepsis due to pneumonia. He was treated with IV antibiotics and supplemental oxygen and did well. He is quite debilitated and seen by physical therapy and Occupational Therapy. He was ultimately [facility] services and rehabilitation. He is to follow-up with Dr. Begum to follow-up this hospital stay. Labs (last 24 hrs) Laboratory Tests 02/18/23 05:08: White Blood Count 10.8, Red Blood Count 3.96L, Hemoglobin 12.1L, Hematocrit 37L, Mean Corpuscular Volume 94, Mean Corpuscular Hemoglobin 31, Mean Corpuscular Hemoglobin Concent 32, Red Cell Distribution Width 14.2, Platelet Count 238, Mean Platelet Volume 11.5, Immature Granulocyte % (Auto) 1, Neutrophils (%) (Auto) 65, Lymphocytes (%) (Auto) 16, Monocytes (%) (Auto) 13H, Eosinophils (%) (Auto) 5, Basophils (%) (Auto) 1, Neutrophils # (Auto) 7.0, Lymphocytes # (Auto) 1.7, Monocytes # (Auto) 1.5H, Eosinophils # (Auto) 0.5H, Basophils # (Auto) 0.1, Immature Granulocyte # (Auto) 0.1, Sodium Level 139, Potassium Level 3.3L, Chloride Level 106, Carbon Dioxide Level 24, Anion Gap 9, Blood Urea Nitrogen 22H, Creatinine 0.81, Estimat Glomerular Filtration Rate 86, BUN/Creatinine R atio 27, Glucose Level 92, Calcium Level 8.5, Corrected Calcium 9.2, Total Bilirubin 1.5H, Aspartate Amino Transf (AST/SGOT) 29, Alanine Aminotransferase (ALT/SGPT) 15, Alkaline Phosphatase 82, Total Protein 6.3L, Albumin 3.1L Microbiology 02/15/23 Blood Culture - Preliminary, Resulted No growth 02/15/23 Urine Culture - Final, Complete Gram Pos Mixed Bacterial Jazlyn See Comments Patient resulted labs reviewed. Pending Labs Laboratory Tests 02/18/23 05:08: White Blood Count 10.8, Red Blood Count 3.96, Hemoglobin 12.1, Hematocrit 37, Mean Corpuscular Volume 94, Mean Corpuscular Hemoglobin 31, Mean Corpuscular Hemoglobin Concent 32, Red Cell Distribution Width 14.2, Platelet Count 238, Mean Platelet Volume 11.5, Immature Granulocyte % (Auto) 1, Neutrophils (%) (Auto) 65, Lymphocytes (%) (Auto) 16, Monocytes (%) (Auto) 13, Eosinophils (%) (Auto) 5, Basophils (%) (Auto) 1, Neutrophils # (Auto) 7.0, Lymphocytes # (Auto) 1.7, Monocytes # (Auto) 1.5, Eosinophils # (Auto) 0.5, Basophils # (Auto) 0.1, Immature Granulocyte # (Auto) 0.1, Sodium Level 139, Potassium Level 3.3, Chloride Level 106, Carbon Dioxide Level 24, Anion Gap 9, Blood Urea Nitrogen 22, Creatinine 0.81, Estimat Glomerular Filtration Rate 86, BUN/Creatinine Ratio 27, Glucose Level 92, Calcium Level 8.5, Corrected Calcium 9.2, Total Bilirubin 1.5, Aspartate Amino Transf (AST/SGOT) 29, Alanine Aminotransferase (ALT/SGPT) 15, Alkaline Phosphatase 82, Total Protein 6.3, Albumin 3.1 Imaging: Reviewed Imaging Report Discussion & Recommendations Discharge Planning: >30 minutes discharge planning Discharge Home Medications: Active Scripts Active Cefdinir 300 Mg Capsule 300 Mg PO BID Buspirone HCl 5 Mg Tablet 5 Mg PO BID Aspirin 81 Mg Tab.chew 81 Mg PO DAILY Atorvastatin Calcium 40 Mg Tablet 40 Mg PO HS Milk of Magnesia (Magnesium Hydroxide) 400 Mg/5 Ml Oral.susp 30 Ml PO DAILY PRN Carvedilol 3.125 Mg Tablet 3.125 Mg PO BID Artificial Tears (Carboxymethylcellulose Sodium) 1 % Drops 1 Drop OP Q3H PRN Hydrocodone-Acetamin 5-325 mg (Hydrocodone/Acetaminophen) 5 Mg-325 Mg Tablet 1 Ea PO Q6H PRN Miralax (Polyethylene Glycol 3350) 17 Gram Powd.pack 17 Gm PO DAILY Furosemide 20 Mg Tablet 20 Mg PO DAILY Instructions to patient/family Please see electronic discharge instructions given to patient. SANTOS BRINK MD Feb 18, 2023 11:06
[2023-02-18] MEDS ORDERED: ASPI-999 PO (11:09)
[2023-02-18] MEDS ORDERED: ACHD5005 PO (11:09)
[2023-02-18] MEDS ORDERED: FURO20TA4 PO (11:09)
[2023-02-18] MEDS ORDERED: ATOR40TA70 PO (11:09)
[2023-02-18] MEDS ORDERED: MAGN400O7 PO (11:09)
[2023-02-18] MEDS ORDERED: CEFD300C3 PO (11:09)
[2023-02-18] MEDS ORDERED: CARV3.122 PO (11:09)
[2023-02-18] MEDS ORDERED: CARB-254 OP (11:09)
[2023-02-18] MEDS ORDERED: POLY17PO6 PO (11:09)
[2023-02-18] MEDS ORDERED: BUSP5TAB59 PO (11:09)
--- NOTE | 2023-02-18 11:11 | Discharge Inst-Skilled Nursing ---
Discharge Inst-Skilled NF Chief Complaint Patient is an 87-year-old male who presented to the emergency department due to fever and altered mental status. He has dementia at baseline and is somewhat confused and is not able to provide much history. He states that his symptoms started yesterday. He of UTIs and so his daughter thought justyna t may be what the issue was. In the emergency department though he was found to have bilateral infiltrates on his chest x-ray and was hypoxic. He did meet sepsis criteria so was admitted for further management. History is limited by his altered mental status and dementia and that there is no family at bedside to supplement. Consult/Follow Up/Orders Follow Up Appt.: With Dr Begum in 1 week. Skilled NF Admit to: [facility] Certification ([facility]) I certify that SNF services are required to be given on an inpatient basis because of the above named patient's need for fci care on a continuing basis for the conditions(s) for which he/she was receiving inpatient hospital services prior to his/her transfer to the SNF. Assisted Facility Order: Nursing Services, Bilingual Spanish Inbound Sales-Evaluate & Treat, Physical Therapy-Evaluate & Treat Oxygen Delivery Method: Nasal Cannula (2lpm) Discharge Diet: No Restrictions Daily Activity as Tolerated: Yes Resuscitation Status: Full Code New & Resume Previous Orders Santos Muse Feb 18, 2023 11:10 SANTOS MUSE MD Feb 18, 2023 11:10
== END 2023-02-18 14:10 | DRG 871 ==
LOC: EDUNIT# 06:54 → ER 06:56 → 4TH 09:07
PROVIDERS: ADMIT Family Medicine; ATTEND Family Medicine
DX: A41.9 Sepsis, unspecified organism (principal); J18.9 Pneumonia, unspecified organism; J96.01 Acute respiratory failure with hypoxia; I48.91 Unspecified atrial fibrillation; I25.10 Atherosclerotic heart disease of native coronary artery without angina pectoris; E78.00 Pure hypercholesterolemia, unspecified; I10 Essential (primary) hypertension; F03.90 Unspecified dementia, unspecified severity, without behavioral disturbance, psychotic disturbance, mood disturbance, and anxiety; F32.A Depression, unspecified; N40.0 Benign prostatic hyperplasia without lower urinary tract symptoms; Z86.711 Personal history of pulmonary embolism; Z95.1 Presence of aortocoronary bypass graft; Z95.2 Presence of prosthetic heart valve; Z86.718 Personal history of other venous thrombosis and embolism; Z86.73 Personal history of transient ischemic attack (TIA), and cerebral infarction without residual deficits; Z79.01 Long term (current) use of anticoagulants; Z87.891 Personal history of nicotine dependence; Z79.899 Other long term (current) drug therapy; Z20.822 Contact with and (suspected) exposure to COVID-19
CPT/HCPCS: 36415; 71045; 80053; 81000; 83605; 83880; 85025; 85610; 85730; 86141; 87040; 87088; 87636; 94640; 94760